=== PATIENT | male | born 1940 | race Caucasian/White ===

== ENCOUNTER 2021-09-07 01:31 | Inpatient (IN) | payer MEDICARE, MEDICAID, SELFPAY ==
[2021-09-07] VITALS (40 sets, daily range): BP systolic 74–124; BP diastolic 38–74; PULSE 71–90; RESP 17–36; TEMP 36.1–37.1; O2SAT 73–100; BMI 11.5; BMI 26.9
--- NOTE | 2021-09-07 | ECG_ITS ---
Test Reason : SOB Blood Pressure : / mmHG Vent. Rate : 086 BPM Atrial Rate : 086 BPM P-R Int : 158 ms QRS Dur : 122 ms QT Int : 438 ms P-R-T Axes : 056 -50 -54 degrees QTc Int : 524 ms Normal sinus rhythm Left anterior fascicular block Minimal voltage criteria for LVH, may be normal variant ( [place] product ) T wave abnormality, consider inferolateral ischemia Abnormal ECG When compared with ECG of 13-OCT-2009 19:34, Left anterior fascicular block is now Present T wave inversion now evident in Inferior leads T wave inversion now evident in Lateral leads QT has lengthened Referred By: Generic ED Physician Electronically Signed By:JAMES SPRINGER MD
--- NOTE | ~2021-09-07 | XR_ITS ---
EXAMINATION: XR SKULL CLINICAL INFORMATION: Pre-MRI COMPARISON: None TECHNIQUE: 3 views of the skull were obtained FINDINGS: The metal wire from the mass the patient is wearing at the time of the x-ray is seen. There are dental amalgams and nasal cannula oxygen. No metallic foreign bodies in the orbits to preclude MRI. No evidence of acute sinusitis. No gross skull fracture. XR/XR skull <4V IMPRESSION: No metallic foreign bodies in the orbits to preclude MRI.
--- NOTE | ~2021-09-07 | CT_ITS ---
EXAMINATION: CT ABDOMEN AND PELVIS WITHOUT CONTRAST CLINICAL INFORMATION: Urosepsis. COMPARISON: CT scan of the abdomen and pelvis dated 05/24/2010. TECHNIQUE: Multidetector volumetric imaging was performed from the superior aspect of the liver through the pubic symphysis. Sagittal and coronal reformatted images were obtained on the technologist's workstation. This CT examination was performed using dose optimization techniques as appropriate, variously including the following: *Automated exposure control *Adjustment of mA and/or kV according to patient size (this includes techniques or standardized protocols for targeted exams where dose is matched to indication/reason for exam; i.e. extremities or head) *Use of iterative reconstruction technique DLP: 965 mGy-cm FINDINGS: LUNG BASES: Mild dependent atelectasis. No significant pleural or pericardial effusions. Incidental bilateral mild gynecomastia. LIVER, GALLBLADDER, AND BILIARY TREE: No hepatic abnormality. Several tiny calcified dependent gallstones without surrounding abnormality. PANCREAS: Unremarkable. SPLEEN: Unremarkable. ADRENAL GLANDS: Unremarkable. KIDNEYS AND URETERS: Mild left hydronephrosis is seen distally to the left ureterovesical junction where there are multiple clustered calcified calculi measuring up to 1.0 cm (image 48, series 5). No intrarenal calculi bilaterally. No right hydronephrosis. BLADDER: Decompressed containing a Barry catheter with diffuse moderate mural thickening and mild surrounding infiltrative changes. A calculus/calcification is seen posterior superiorly measuring 0.8 cm (image 74, series 3). Air is seen adjacent to the Barry catheter at the bulbar and penile segments. GASTROINTESTINAL TRACT: Small to moderate hiatal hernia. The remainder the stomach is unremarkable. The remainder the stomach is unremarkable. Probable small lipomatous polyp in the second segment of the duodenum measuring 0.9 cm (image 42, series 5). The remainder the small bowel is unremarkable. The appendix is unremarkable. The colon shows scattered mild to moderate diverticulosis without surrounding abnormality. The rectum is unremarkable. ABDOMINAL WALL: Small fat-containing left inguinal hernia. LYMPH NODES: No lymphadenopathy. VASCULAR: Unremarkable. PELVIC VISCERA: Unremarkable. OSSEOUS STRUCTURES: Multilevel degenerative changes are seen in the thoracolumbar spine most pronounced from L3-L4 and L5-S1 with degenerative disc disease and marginal osteophyte formation. No acute abnormality. The vertebral body hemangioma seen at L3. Mild bilateral hip degenerative changes. CT/CT abdomen pelvis wo con IMPRESSION: 1. Mild left hydronephrosis caused by a cluster of calculi at the level the left ureterovesical junction. 2. Decompressed urinary bladder with moderate diffuse mural thickening and perivesicular infiltrative changes suggesting an infectious/inflammatory cystitis. An additional intraluminal calculus is seen posterior superiorly. 3. Mild air adjacent to the Barry catheter in the bulbar and penile segments. This could be secondary to instrumentation however, an infectious/inflammatory process cannot be excluded. 4. Cholelithiasis without evidence for acute cholecystitis. 5. Mild to moderate colonic diverticulosis without evidence for acute diverticulitis.
--- NOTE | ~2021-09-07 | XR_ITS ---
EXAMINATION: XR CHEST CLINICAL INFORMATION: Shortness of breath. Rule out pneumonia. COMPARISON: None TECHNIQUE: Frontal view of the chest was obtained. FINDINGS: The cardiac silhouette is normal in size. Mild blunting of the right costophrenic sulcus. No pneumothoraces. Focal round glass and airspace opacity projected over the peripheral right middle lung zone. Mild diffuse vascular indistinctness is present elsewhere in the lungs. XR/XR chest 1V IMPRESSION: *Focal ground glass and airspace opacity within the right middle lung zone suspicious for acute infection. Findings could represent atypical/viral infection. *Findings suspicious for mild pulmonary vascular congestion. *Possible trace right pleural effusion.
--- NOTE | ~2021-09-07 | MR_ITS ---
EXAMINATION: MR PELVIS WITHOUT CONTRAST CLINICAL INFORMATION: Penile cancer. COMPARISON: CT abdomen/pelvis 09/07/2021. TECHNIQUE: Multiple routine MRI sequences through the pelvis were obtained without intravenous contrast. FINDINGS: Evaluation is limited limited in the absence of intravenous contrast. Accounting for these limitations, there is visualization of a heterogeneous predominantly T2 hyperintense mass along the dorsal shaft of the penis measuring approximately 3 x 1.9 x 5.5 cm (axial image 35 of series 4 and sagittal image 13 of series 7). This lesion involves the bilateral corpus cavernosum starting at approximately 7 cm from the pubic symphysis, and extending along the dorsal shaft of the penis up to the glans. There is also encasement of the penile urethra. A Barry catheter is noted. There are pathologically enlarged predominantly left-sided iliac and inguinal lymph nodes. For example (series 4): A 3.1 x 1.9 cm left external iliac lymph node adjacent to the psoas muscle, image 4. A 1.6 x 1 cm left external iliac lymph node, image 9. A 1.3 x 2 cm left external iliac lymph node, image 11. A 1.5 x 3.6 cm left inguinal lymph node, image 21. The prostate gland is enlarged. This examination is suboptimal to evaluate for prostatic lesions. There is a small 0.7 cm homogeneously T2 hyperintense probably cyst in the right epididymis/testis (4:40). There is diffuse urinary bladder wall thickening with trabeculations. Layering urinary bladder stones are again noted. There is small volume of free fluid with also fat stranding in the pelvis and presacral space. There is extensive subcutaneous edema along the penis and inguinal regions. There is a small left-sided fat-containing inguinal hernia. There is nonspecific heterogeneity of the bone marrow. MR/MR pelvis wo con IMPRESSION: Penile mass suboptimally assessed in the absence of intravenous contrast centered predominantly along the dorsal shaft extending to the glands and encasing the urethra. Evaluation of superimposed vascular penile thrombosis is essentially nondiagnostic in the absence of intravenous contrast. Inguinal and pelvic lymphadenopathy. Nonspecific heterogeneity of the bone marrow. Enlarged prostate. This examination was not targeted to assess for prostatic neoplasm for which correlation with PSA, biopsy or prostatic MRI is recommended if clinically indicated. Significant soft tissue stranding and edema around the penis and inguinal regions with a small volume of free fluid and also fat stranding in the pelvis and presacral space. Abnormal wall thickening of the urinary bladder with trabeculations, possibly related with chronic outlet obstruction. Correlate with urinalysis and if indicated cystoscopy. This result was discussed with Eliazar MELARA at 09/13/2021 3:41 PM and it was ascertained that the content of the report was understood at the time of direct communication.
--- NOTE | ~2021-09-07 | US_ITS ---
EXAMINATION: ULTRASOUND-GUIDED FINE-NEEDLE ASPIRATION CLINICAL INFORMATION: Penile mass. Enlarged inguinal lymph nodes. COMPARISON: Previous CT and MR of the pelvis from 08/2021. TECHNIQUE: Procedure and risks and benefits including bleeding and infection were discussed with the patient and informed consent was obtained. The left groin was prepped and draped in the usual sterile fashion. The skin and soft tissues were anesthetized with 1% lidocaine plain. Using ultrasound guidance and a 22-gauge needle, access to the largest left inguinal lymph node measuring 2.3 x 1 x 1.5 cm was obtained. 4 22-gauge FNA specimens. Specimens were sent for cytology, flow cytometry and microbiology studies. FINDINGS: The largest left inguinal lymph node measuring 2.3 x 1 x 1.5 cm with cortical thickening and slit-like hilum was targeted for fine-needle aspiration. US/US guided fine needle asp IMPRESSION: Ultrasound-guided left inguinal lymph node fine-needle aspiration.
--- NOTE | ~2021-09-07 | US_ITS ---
EXAMINATION: PENILE DOPPLER ULTRASOUND CLINICAL INFORMATION: Question of venous thrombosis. COMPARISON: MR pelvis 09/11/2021, CT abdomen and pelvis 09/07/2021 TECHNIQUE: High-frequency linear transducer was used to examine the penis with Doppler imaging. FINDINGS: There is skin thickening and edema of the penis. No definite thrombosed veins are seen. Superficial dorsal vein and the deep dorsal vein in the penis both appear to be patent. Within the corpora spongiosum, a Barry catheter can be seen in the urethra. There is a hypoechoic peripheral crescentic area measuring 1.0 x 1.5 x 0.5 cm in the left corpora cavernosa peripherally from about 6 o'clock to the 3:30 position. This area shows no evidence of vascular flow. Other visualized veins appear quite prominent and hypervascular with no evidence of thrombosed venous structures. US/US duplex AV flow penis comp IMPRESSION: There is a crescentic hypoechoic area within the left corpora cavernosa which could represent an area which appears clotted / thrombosed. No other areas of definite venous thrombosis seen involving any other venous structures.
--- NOTE | ~2021-09-07 | XR_ITS ---
EXAMINATION: XR CHEST CLINICAL INFORMATION: Right IJ COMPARISON: This radiograph 09/07/2021 TECHNIQUE: Frontal view of the chest was obtained. FINDINGS: A right internal jugular catheter terminates in projection with the right atrium approximately 2 cm inferior to the cavoatrial junction. The heart size is normal. No pneumothoraces identified. Focal airspace type opacity is present in the right middle lung zone. Mild diffuse vascular indistinctness is visualized. Mild blunting of the right costophrenic sulcus. XR/XR chest 1V IMPRESSION: *Right internal jugular catheter terminating in projection with the right atrium 2 cm inferior to the cavoatrial junction. *Focal right middle lung zone airspace opacity which may represent infection. *Findings suspicious for pulmonary vascular congestion. *Trace right pleural effusion. This result regarding right IJ catheter positioning and findings suspicious for right middle lung zone airspace disease was discussed with Flynn GONZALEZ by telephone at 09/07/2021 5:43 AM and it was ascertained that the content and urgency of the report was understood at the time of direct communication.
[2021-09-07] MEDS: 0.9 % Sodium Chloride 1,000 ML 999 ML IV ×3 (02:00→02:47)
[2021-09-07 02:02] LABS: Hemoglobin 12.1 g/dl (14.0-18.0); Mean Corpuscular HGB Conc 32.7 g/dl (31.0-36.0); Mean Corpuscular Hemoglobin 29.1 pg (27.0-33.0); Mean Corpuscular Volume 88.9 fL (80.0-98.0); Mean Platelet Volume 10.6 fL (9.4-12.4); Red Blood Count 4.16 X10*6/uL (4.60-5.80); Red Cell Distribution Width 16.4 % (11.0-16.0)
[2021-09-07 02:15] LABS: Platelet Count 89 X10*3/uL (160-400); WBC ABN SCTR FOR CBC 1
[2021-09-07 02:17] LABS: Creatinine Clr Calc Pharmacy 6.9; Estimated Glomerular Filt Rate 14
[2021-09-07 02:18] LABS: Anion Gap 23 (12-20); Blood Urea Nitrogen 62 mg/dL (9-16); COVID-19 Test Negative (Negative); Calcium 9.5 mg/dL (8.4-10.2); Carbon Dioxide 17 mmol/L (22-29); Chloride 101 mmol/L (96-108); Glucose Fasting 68 mg/dL (60-99); IDNOW Serial# 16C4AD1C; Influenza A Negative (Negative); Influenza B2 Negative (Negative); Lactic Acid 7.7 mmol/L (0.5-2.0); Potassium 4.7 mmol/L (3.3-5.1); Sodium 136 mmol/L (135-145)
[2021-09-07 02:35] LABS: Band Neutrophils Percent 38 % (3-5); Lymphocytes Percent Manual 4 % (20-40); Metamyelocytes Percent 3 %; Monocytes Percent Manual 5 % (2-11); Neutrophils Percent Manual 50 % (45-73)
[2021-09-07 02:36] LABS: Burr Cells 1+ (0-2) /OIF; Dohle Bodies PRESENT; Large Platelet PRESENT; Macrocytosis 1+ (5-14) /OIF; Metamyelocytes Absolute 0.7 X10*3/uL; Monocytes Absolute Manual 1.2 X10*3/uL (0.1-1.2); Neutrophils Absolute Manual 21.7 X10*3/uL (2.0-8.3); Platelet Estimate DECREASED (NORMAL); Platelet Morphology Comment NORMAL; RBC Morphology NOTED; Toxic Vacuolation PRESENT; White Blood Count 24.7 X10*3/uL (4.8-10.8)
[2021-09-07] MEDS: Piperacillin Sodium/Tazobactam 4.5 GM in 0.9 % Sodium Chloride 100 ML IV (02:37)
--- NOTE | 2021-09-07 02:40 | PC.NURSE ---
Addendum entered by Lynsey Florian [facility] 09/07/21 07:03: Report given to JOYCE Rosales Addendum entered by Lynseymichael Florian [facility] 09/07/21 07:00: Report given to JOYCE Rosales Addendum entered by Lynsey Chiqui [facility] 09/07/21 06:33: biateral upper soft restrained placed at 0205am due to confusion, trying to pulled line and his hernandez. pt re-orientation provided, pt keeps trying to pulled his hernandez and IV Addendum entered by Lynsey Chiqui [facility] 09/07/21 05:35: LISA Pruett confirm central line placement. able to use line [facility] 09/07/21 05:28: pt tolerated central line placement. Xray by bedside Addendum entered by Lynsey Chiqui [facility] 09/07/21 05:02: verbal order from LISA Gates to titrate pressor to 0.25 Addendum entered by Lynsey Chiqui [facility] 09/07/21 04:57: LISA Gates by bedside, preparing pt for a central line. Addendum entered by Lynseymichael Florian [facility] 09/07/21 02:59: pt started on CBI per provider order Original Note: pt arrived confuse, hematuria notice on his underpants. hypotensive, two IV inserted. pt started on continuos cardiac monitoring. labs obtained and set. Hernandez inserted, darn red foul urine notice, provider made aware.
[2021-09-07 02:41] LABS: Troponin-I High Sensitivity 2236.7 ng/L (<3.5-35.0)
[2021-09-07 02:41] LABS: Appearance Urine TURBID; Color Urine BROWN; Glucose Urine UA 100 MG/DL (NEG); Leukocyte Esterase Urine 3+ (NEG); Nitrite Urine POS (NEG); Specific Gravity - Urine 1.015 (1.005-1.025); UACC Culture Trigger YES; Urine Blood 3+ (NEG); Urine Ketones 15 MG/DL (NEG); Urine Protein 3+ MG/DL (NEG-TRACE)
[2021-09-07 02:59] LABS: Amorphous Sediment Urine 3+ /LPF; Bacteria Urine 4+ /LPF; RBC Urine TNTC /HPF (0); Squamous Epithelial Cell Urine TRACE /LPF; Triple Phosphate Crystal Urine 2+ /LPF; WBC Urine 50-75 /HPF (0-4)
[2021-09-07 03:03] LABS: Alanine Aminotransferase 17 U/L (0-40); Albumin Level 3.1 g/dL (3.5-5.0); Alkaline Phosphatase 169 U/L (39-117); Aspartate Amino Transferase 74 U/L (5-37); Bilirubin Direct 1.1 mg/dL (0.0-0.5); Bilirubin Total 2.3 mg/dL (0.0-1.0); Total Protein 6.5 g/dL (6.5-8.0)
--- NOTE | 2021-09-07 03:15 | ED.GENADULT ---
HPI - General Adult General Chief complaint: Dyspnea Stated complaint: LOW O2 DEMENTIA Time Seen by Provider: 09/07/21 01:54 Source: EMS Mode of arrival: ambulatory Limitations: altered mental status History of Present Illness HPI narrative: 81-year-old male who presents emergency department for evaluation confusion and shortness of breath with hypoxia. The patient was unable to give a history information came from the paramedics. Apparently the called an ambulance was the patient was confused was trying to walk outside and for got where he was going. The patient's confusion got worse. When the paramedics arrived at the scene they state that his O2 saturation was 73% on room air. They placed him on non-rebreather with improvement of his O2 saturation. There was no other information available on presentation and there was no contact information available to obtain a history from the . Related Data Allergies Allergy/AdvReac Type Severity Reaction Status Date / Time No Known Allergies Allergy Unverified 12/03/19 16:48 Review of Systems Review of Systems: Yes Unobtainable due to mental status [facility] Past Medical History [facility] Narrative: Past medical history: Unknown. Past surgical history: Unknown. Social history: Unknown. Social History Social History Advance Directives: No Advance Directives Information Provided: Yes Physical Exam ED Vital Signs: Vital Signs - 24 hr 09/07/21 01:41 09/07/21 02:36 09/07/21 02:47 Temperature 97.8 F Pulse Rate 89 83 82 Respiratory Rate 28 H 24 H 32 H Blood Pressure 74/44 L 78/38 L 81/42 L Pulse Oximetry 98 100 100 Oxygen Delivery Method Nasal Cannula Nasal Cannula Nasal Cannula Oxygen Flow Rate 4 3 09/07/21 02:57 09/07/21 03:08 09/07/21 03:36 Temperature Pulse Rate 84 80 80 Respiratory Rate 31 H 26 H 17 Blood Pressure 89/40 L 90/48 L 99/44 L Pulse Oximetry 99 99 100 Oxygen Delivery Method Nasal Cannula Nasal Cannula Nasal Cannula Oxygen Flow Rate 3 3 3 09/07/21 04:09 09/07/21 04:31 Temperature Pulse Rate 82 83 Respiratory Rate 22 H 25 H Blood Pressure 94/39 L 78/43 L Pulse Oximetry 97 97 Oxygen Delivery Method Nasal Cannula Nasal Cannula Oxygen Flow Rate 3 3 BMI result Body Mass Index 11.5 Const Other: Elderly male patient, he is confused, he was able to tell me his name only, he was not able answer questions, he was trying to get off the stretcher HENIL Head: Yes normal to inspection, Yes normocephalic and Yes atraumatic Ears: external ears normal General nose exam: Normal external nose present Face and sinus: Yes normal facial exam Mouth: Normal oral and palatal mucosa present Throat: Yes posterior oropharynx normal Eyes General: appearance normal, both eyes and all related structures Neck Neck: Yes normal visual inspection, Yes no lymphadenopathy, Yes trachea midline and Yes supple Chest Chest palpation & inspection: normal inspection of the chest and normal palpation of entire chest wall Resp Effort & Inspection: normal respiratory effort and able to speak in complete sentences Auscultation: clear to auscultation bilaterally Cardio Rate: regular rate Rhythm: regular rhythm Heart sounds: S1 normal heart sound present, S2 normal heart sound present and no murmurs GI Inspection: Yes normal to inspection Palpation (GI): Soft to palpation, nontender and no guarding Auscultation: normal bowel sounds General: Yes no CVA tenderness Back/Spine/Pelvis Back: no CVA tenderness Skin General skin exam: no rashes or lesions noted Neuro Other: patient is oriented to person only, he moves all extremities symmetrically Extrem General: Yes normal to inspection Course Course Course Narrative: 81-year-old male patient who was brought to emergency department by ambulance for evaluation of confusion. Patient was found to be hypoxic by the paramedics and placed on non-rebreather here in the emergency department we were able place the patient on 4 L of oxygen via nasal cannula and his O2 saturation was in 98% range. Initial vital signs revealed a low blood pressure 74/44 and an elevated respiratory rate of 28. Patient's O2 saturation was 98% on 4 L and his temperature was 97.8 degrees. Except for his confusion the patient's examination was otherwise unremarkable. I did order laboratory evaluation to include CBC, CMP, lactate, troponin, urinalysis, Barry insertion, EKG, chest x-ray. Patient was ordered to get Zosyn 4.5 g IV and normal saline IV x3 L. 0524: Laboratory evaluation [place] [address], [place] [address], there are no old values to compare these 2. Patient's BUN creatinine were elevated 62 and 4.16. Patient's AST was elevated 74. Alk-phos was elevated 169. Bilirubin is elevated 2.3. The initial troponin was elevated 2236, 2 hour troponin was improved at 1663. initial lactate was 7.7. Repeat lactate improved to 3.8. Radiology evaluation: Radiology reading is as follows: *Focal ground glass and airspace opacity within the right middle lung zone suspicious for acute infection. Findings could represent atypical/viral infection. *Findings suspicious for mild pulmonary vascular congestion. *Possible trace right pleural effusion. I did discuss the patient's presentation with the covering mechanical maintenance supervisor, Dr. Ureña and he accepted the patient to the intensive care unit. the patient's blood pressure initially improved with the above treatment. Patient however became hypotensive again and was started on Levophed. ? Medical Decision Making Lab Data Result diagrams: 09/07/21 01:48 09/07/21 01:48 Labs: Lab Results 09/07/21 09/07/21 09/07/21 Range/Units 01:48 01:48 01:48 WBC 24.7 H (4.8-10.8) X10*3/uL RBC 4.16 L (4.60-5.80) X10*6/uL Hgb 12.1 L (14.0-18.0) g/dl Hct 37.0 L (42.0-52.0) % MCV 88.9 (80.0-98.0) fL MCH 29.1 (27.0-33.0) pg MCHC 32.7 (31.0-36.0) g/dl RDW 16.4 H (11.0-16.0) % Plt Count 89 L (160-400) X10*3/uL MPV 10.6 (9.4-12.4) fL Immature Gran % (Auto) Cancelled Neut % (Auto) Cancelled Lymph % (Auto) Cancelled [place] % (Auto) Cancelled Eos % (Auto) Cancelled Baso % (Auto) Cancelled Lymph # (Auto) Cancelled [place] # (Auto) Cancelled Eos # (Auto) Cancelled Baso # (Auto) Cancelled Abs Immat Gran (auto) Cancelled Absolute Neuts (auto) Cancelled Absolute Nucleated RBC 0.000 (0.0-0.012) X10*3/uL Nucleated RBC % (auto) 0.0 (0.0-0.2) /100WBC Neutrophils % (Manual) 50 (45-73) % Band Neutrophils % 38 H (3-5) % Lymphocytes % (Manual) 4 L (20-40) % Monocytes % (Manual) 5 (2-11) % Metamyelocytes % 3 % Abs Neuts (Manual) 21.7 H (2.0-8.3) X10*3/uL Lymphocytes # (Manual) 1.0 L (1.2-4.9) X10*3/uL Monocytes # (Manual) 1.2 (0.1-1.2) X10*3/uL Metamyelocytes # 0.7 X10*3/uL Toxic Vacuolation PRESENT Dohle Bodies PRESENT Platelet Estimate DECREASED (NORMAL) Large Platelets PRESENT Plt Morphology Comment NORMAL RBC Morphology NOTED Macrocytosis 1+ (5-14) /OIF [place] Cells 1+ (0-2) /OIF VBG pH (7.32-7.43) VBG pCO2 mmHg VBG pO2 mmHg VBG HCO3 (22-26) mmol/L VBG O2 Saturation % VBG Base Excess mmol/L Sodium 136 (135-145) mmol/L Potassium 4.7 (3.3-5.1) mmol/L Chloride 101 (96-108) mmol/L Carbon Dioxide 17 L (22-29) mmol/L Anion Gap 23 H (12-20) BUN 62 H (9-16) mg/dL Creatinine 4.16 H* (0.5-1.4) mg/dL Estim Creat Clear Calc 6.9 Estimated GFR 14 Fasting Glucose 68 (60-99) mg/dL Lactic Acid 7.7 H* (0.5-2.0) mmol/L Lactic Acid F/U @ 2Hr (0.5-2.0) mmol/L Calcium 9.5 (8.4-10.2) mg/dL Phosphorus 2.2 L (2.7-4.5) mg/dL Magnesium 1.8 (1.6-2.6) mg/dL Total Bilirubin 2.3 H (0.0-1.0) mg/dL Direct Bilirubin 1.1 H (0.0-0.5) mg/dL AST 74 H (5-37) U/L ALT 17 (0-40) U/L Alkaline Phosphatase 169 H (39-117) U/L Troponin I High Sens (<3.5-35.0) ng/L B-Natriuretic Peptide (<100) pg/mL Total Protein 6.5 (6.5-8.0) g/dL Albumin 3.1 L (3.5-5.0) g/dL Urine Color Urine Appearance Urine pH (5.0-8.0) Ur Specific [place] (1.005-1.025) Urine Protein (NEG-TRACE) MG/DL Urine Glucose (UA) (NEG) MG/DL Urine Ketones (NEG) MG/DL Urine Blood (NEG) Urine Nitrite (NEG) Ur Leukocyte Esterase (NEG) Urine RBC (0) /HPF Urine WBC (0-4) /HPF Ur Squamous Epith Cells /LPF Triple Phos Crystals /LPF Amorphous Sediment /LPF Urine Bacteria /LPF Urine Yeast /HPF COVID-19 (CRISTIAN) (Negative) COVID-19 Clin Com Influenza Type A (JUNG) (Negative) Influenza Type B (JUNG) (Negative) Influenza A & B Note 09/07/21 09/07/21 09/07/21 Range/Units 01:48 01:48 02:09 WBC (4.8-10.8) X10*3/uL RBC (4.60-5.80) X10*6/uL Hgb (14.0-18.0) g/dl Hct (42.0-52.0) % MCV (80.0-98.0) fL MCH (27.0-33.0) pg MCHC (31.0-36.0) g/dl RDW (11.0-16.0) % Plt Count (160-400) X10*3/uL MPV (9.4-12.4) fL Immature Gran % (Auto) Neut % (Auto) Lymph % (Auto) [place] % (Auto) Eos % (Auto) Baso % (Auto) Lymph # (Auto) [place] # (Auto) Eos # (Auto) Baso # (Auto) Abs Immat Gran (auto) Absolute Neuts (auto) Absolute Nucleated RBC (0.0-0.012) X10*3/uL Nucleated RBC % (auto) (0.0-0.2) /100WBC Neutrophils % (Manual) (45-73) % Band Neutrophils % (3-5) % Lymphocytes % (Manual) (20-40) % Monocytes % (Manual) (2-11) % Metamyelocytes % % Abs Neuts (Manual) (2.0-8.3) X10*3/uL Lymphocytes # (Manual) (1.2-4.9) X10*3/uL Monocytes # (Manual) (0.1-1.2) X10*3/uL Metamyelocytes # X10*3/uL Toxic Vacuolation Dohle Bodies Platelet Estimate (NORMAL) Large Platelets Plt Morphology Comment RBC Morphology Macrocytosis /OIF [place] Cells /OIF VBG pH (7.32-7.43) VBG pCO2 mmHg VBG pO2 mmHg VBG HCO3 (22-26) mmol/L VBG O2 Saturation % VBG Base Excess mmol/L Sodium (135-145) mmol/L Potassium (3.3-5.1) mmol/L Chloride (96-108) mmol/L Carbon Dioxide (22-29) mmol/L Anion Gap (12-20) BUN (9-16) mg/dL Creatinine (0.5-1.4) mg/dL Estim Creat Clear Calc Estimated GFR Fasting Glucose (60-99) mg/dL Lactic Acid (0.5-2.0) mmol/L Lactic Acid F/U @ 2Hr (0.5-2.0) mmol/L Calcium (8.4-10.2) mg/dL Phosphorus (2.7-4.5) mg/dL Magnesium (1.6-2.6) mg/dL Total Bilirubin (0.0-1.0) mg/dL Direct Bilirubin (0.0-0.5) mg/dL AST (5-37) U/L ALT (0-40) U/L Alkaline Phosphatase (39-117) U/L Troponin I High Sens 2236.7 H* (<3.5-35.0) ng/L B-Natriuretic Peptide 777 H (<100) pg/mL Total Protein (6.5-8.0) g/dL Albumin (3.5-5.0) g/dL Urine Color Urine Appearance Urine pH (5.0-8.0) Ur Specific [place] (1.005-1.025) Urine Protein (NEG-TRACE) MG/DL Urine Glucose (UA) (NEG) MG/DL Urine Ketones (NEG) MG/DL Urine Blood (NEG) Urine Nitrite (NEG) Ur Leukocyte Esterase (NEG) Urine RBC (0) /HPF Urine WBC (0-4) /HPF Ur Squamous Epith Cells /LPF Triple Phos Crystals /LPF Amorphous Sediment /LPF Urine Bacteria /LPF Urine Yeast /HPF COVID-19 (CRISTIAN) Negative (Negative) COVID-19 Clin Com See Note Influenza Type A (JUNG) Negative (Negative) Influenza Type B (JUNG) Negative (Negative) Influenza A & B Note See Note 09/07/21 09/07/21 09/07/21 Range/Units 02:34 04:27 04:27 WBC (4.8-10.8) X10*3/uL RBC (4.60-5.80) X10*6/uL Hgb (14.0-18.0) g/dl Hct (42.0-52.0) % MCV (80.0-98.0) fL MCH (27.0-33.0) pg MCHC (31.0-36.0) g/dl RDW (11.0-16.0) % Plt Count (160-400) X10*3/uL MPV (9.4-12.4) fL Immature Gran % (Auto) Neut % (Auto) Lymph % (Auto) [place] % (Auto) Eos % (Auto) Baso % (Auto) Lymph # (Auto) [place] # (Auto) Eos # (Auto) Baso # (Auto) Abs Immat Gran (auto) Absolute Neuts (auto) Absolute Nucleated RBC (0.0-0.012) X10*3/uL Nucleated RBC % (auto) (0.0-0.2) /100WBC Neutrophils % (Manual) (45-73) % Band Neutrophils % (3-5) % Lymphocytes % (Manual) (20-40) % Monocytes % (Manual) (2-11) % Metamyelocytes % % Abs Neuts (Manual) (2.0-8.3) X10*3/uL Lymphocytes # (Manual) (1.2-4.9) X10*3/uL Monocytes # (Manual) (0.1-1.2) X10*3/uL Metamyelocytes # X10*3/uL Toxic Vacuolation Dohle Bodies Platelet Estimate (NORMAL) Large Platelets Plt Morphology Comment RBC Morphology Macrocytosis /OIF [place] Cells /OIF VBG pH (7.32-7.43) VBG pCO2 mmHg VBG pO2 mmHg VBG HCO3 (22-26) mmol/L VBG O2 Saturation % VBG Base Excess mmol/L Sodium (135-145) mmol/L Potassium (3.3-5.1) mmol/L Chloride (96-108) mmol/L Carbon Dioxide (22-29) mmol/L Anion Gap (12-20) BUN (9-16) mg/dL Creatinine (0.5-1.4) mg/dL Estim Creat Clear Calc Estimated GFR Fasting Glucose (60-99) mg/dL Lactic Acid (0.5-2.0) mmol/L Lactic Acid F/U @ 2Hr 3.8 H* (0.5-2.0) mmol/L Calcium (8.4-10.2) mg/dL Phosphorus (2.7-4.5) mg/dL Magnesium (1.6-2.6) mg/dL Total Bilirubin (0.0-1.0) mg/dL Direct Bilirubin (0.0-0.5) mg/dL AST (5-37) U/L ALT (0-40) U/L Alkaline Phosphatase (39-117) U/L Troponin I High Sens 1663.0 H* (<3.5-35.0) ng/L B-Natriuretic Peptide (<100) pg/mL Total Protein (6.5-8.0) g/dL Albumin (3.5-5.0) g/dL Urine Color BROWN A Urine Appearance TURBID Urine pH 8.0 (5.0-8.0) Ur Specific [place] 1.015 (1.005-1.025) Urine Protein 3+ H (NEG-TRACE) MG/DL Urine Glucose (UA) 100 H (NEG) MG/DL Urine Ketones 15 (NEG) MG/DL Urine Blood 3+ H (NEG) Urine Nitrite POS H (NEG) Ur Leukocyte Esterase 3+ H (NEG) Urine RBC TNTC H (0) /HPF Urine WBC 50-75 H (0-4) /HPF Ur Squamous Epith Cells TRACE /LPF Triple Phos Crystals 2+ /LPF Amorphous Sediment 3+ /LPF Urine Bacteria 4+ /LPF Urine Yeast TRACE /HPF COVID-19 (CRISTIAN) (Negative) COVID-19 Clin Com Influenza Type A (JUNG) (Negative) Influenza Type B (JUNG) (Negative) Influenza A & B Note 09/07/21 Range/Units 04:32 WBC (4.8-10.8) X10*3/uL RBC (4.60-5.80) X10*6/uL Hgb (14.0-18.0) g/dl Hct (42.0-52.0) % MCV (80.0-98.0) fL MCH (27.0-33.0) pg MCHC (31.0-36.0) g/dl RDW (11.0-16.0) % Plt Count (160-400) X10*3/uL MPV (9.4-12.4) fL Immature Gran % (Auto) Neut % (Auto) Lymph % (Auto) [place] % (Auto) Eos % (Auto) Baso % (Auto) Lymph # (Auto) [place] # (Auto) Eos # (Auto) Baso # (Auto) Abs Immat Gran (auto) Absolute Neuts (auto) Absolute Nucleated RBC (0.0-0.012) X10*3/uL Nucleated RBC % (auto) (0.0-0.2) /100WBC Neutrophils % (Manual) (45-73) % Band Neutrophils % (3-5) % Lymphocytes % (Manual) (20-40) % Monocytes % (Manual) (2-11) % Metamyelocytes % % Abs Neuts (Manual) (2.0-8.3) X10*3/uL Lymphocytes # (Manual) (1.2-4.9) X10*3/uL Monocytes # (Manual) (0.1-1.2) X10*3/uL Metamyelocytes # X10*3/uL Toxic Vacuolation Dohle Bodies Platelet Estimate (NORMAL) Large Platelets Plt Morphology Comment RBC Morphology Macrocytosis /OIF [place] Cells /OIF VBG pH 7.34 (7.32-7.43) VBG pCO2 29 mmHg VBG pO2 58 mmHg VBG HCO3 16 L (22-26) mmol/L VBG O2 Saturation 83.0 % VBG Base Excess -8.3 mmol/L Sodium (135-145) mmol/L Potassium (3.3-5.1) mmol/L Chloride (96-108) mmol/L Carbon Dioxide (22-29) mmol/L Anion Gap (12-20) BUN (9-16) mg/dL Creatinine (0.5-1.4) mg/dL Estim Creat Clear Calc Estimated GFR Fasting Glucose (60-99) mg/dL Lactic Acid (0.5-2.0) mmol/L Lactic Acid F/U @ 2Hr (0.5-2.0) mmol/L Calcium (8.4-10.2) mg/dL Phosphorus (2.7-4.5) mg/dL Magnesium (1.6-2.6) mg/dL Total Bilirubin (0.0-1.0) mg/dL Direct Bilirubin (0.0-0.5) mg/dL AST (5-37) U/L ALT (0-40) U/L Alkaline Phosphatase (39-117) U/L Troponin I High Sens (<3.5-35.0) ng/L B-Natriuretic Peptide (<100) pg/mL Total Protein (6.5-8.0) g/dL Albumin (3.5-5.0) g/dL Urine Color Urine Appearance Urine pH (5.0-8.0) Ur Specific [place] (1.005-1.025) Urine Protein (NEG-TRACE) MG/DL Urine Glucose (UA) (NEG) MG/DL Urine Ketones (NEG) MG/DL Urine Blood (NEG) Urine Nitrite (NEG) Ur Leukocyte Esterase (NEG) Urine RBC (0) /HPF Urine WBC (0-4) /HPF Ur Squamous Epith Cells /LPF Triple Phos Crystals /LPF Amorphous Sediment /LPF Urine Bacteria /LPF Urine Yeast /HPF COVID-19 (CRISTIAN) (Negative) COVID-19 Clin Com Influenza Type A (JUNG) (Negative) Influenza Type B (JUNG) (Negative) Influenza A & B Note ECG Data Attestation: I personally reviewed and interpreted this ECG as follows: Interpretation: 0139: Normal sinus rhythm rate of 86, normal WI interval 158 milliseconds, prolonged QRS of 122 milliseconds, prolonged QTC 524 milliseconds, patient had inverted T-waves in leads 2, 3 and AVF, patient has poor R-wave progression V1 through V3, no old EKG for comparison. Critical Care Time Critical Care Time Total Critical Care Time: 80 Attestation: Critical Care: The patient was critically ill with a high probability of imminent or life threatening deterioration. I spent greater than 30 minutes of discontinuous time evaluating the patient,delivering critical care at the bedside, discussing and evaluating pertinent data with consultants. Critical care time does not include time spent performing separately billable procedures or teaching. Total time spent performing critical care was 80 minutes. Discharge Plan Discharge Clinical Impression: Acute UTI, Acute hypotension Pneumonia Qualifiers: Pneumonia type: due to unspecified organism Laterality: right Lung location: middle lobe of lung Qualified Code(s): J18.9 - Pneumonia, unspecified organism Patient Disposition: Admitted As Inpatient
--- NOTE | 2021-09-07 03:28 | P.HPCC_ITS ---
History of Present Illness Date of Service: 09/07/21 Attending physician on admission: Cy Ureña Chief Complaint: Sepsis, UTI, ALETHEA HPI: ?81-year-old male with underlying history of recurrent UTIs, pyelonephritis, hyperlipidemia, SD , DVT and PE in year 1999, with another PE in 2005, pneumonia, mild restrictive pulmonary disease based on PFTs study from back then, hypertension; constipation, diverticulosis he had been on long-term anticoagulation therapy at the time; Per ER report the patient had arrived confused, hematuria was noted under his underpants; the patient's blood pressure was 74/44, heart rate 89, respirations 28, O2 90% on 4 L nasal cannula and temperature 97.8 degrees.? ? His initial workup revealed a white count of 24.7, H&H of 12 and 37 respectively with platelets of 89, sodium 136, potassium 4.7, chloride 101, carbon dioxide 17, BUN 62 crit, creatinine 4.16, baseline is unknown). ?Lactic acid 7.7. ?A urinalysis is consistent with UTI showing positive nitrates, 3+ leukocyte esterase, 50-75 white blood cells per high-power feel along with glucosuria and proteinuria, trace yeast. ?Respiratory panel negative including COVID test. ?His EKG shows T-wave inversions throughout the lateral inferior leads which are new from prior EKG in 2009 along with an elevated troponin of 2236.? The patient did receive 30 milligrams/kilograms of IV fluid, was started on Zosyn. ?Even though the patient received the above-mentioned IV fluids, his blood pressure does not improve in and we requested to admit the patient for further management and perhaps vasopressor administration. ? Currently patient is not able to give a history. ? ROS:? Unable to obtain ? Past Medical History:? As above ? Past Surgical History: Unknown ? Family history:?Unknown ? Social History:? Per prior records the patient has not been a smoker drinker. Livies home with his ? CODE STATUS: FULL CODE ? Allergies: NKDA ? Home Medications: See Med Rec ? SEPSIS EXAM DONE AT 0400 AM VS: ?BP 90/48, HR 80, RR 26, O2 sat 99% 3 L nasal cannula General: ?Thin and cachectic looking, Alert oriented x3 no acute distress.? Speaking full sentences.? Speech is well articulated, thought process is coherent.? Following all commands. Skin:? Intact, no lesions, edema, erythema, clubbing or cyanosis.? No ulcers. HEENT:? Head is normocephalic, atraumatic, pupils equal round reactive to light accommodation bilaterally.? Extraocular movements appear intact.? Buccal mucosa is moist, Neck is supple without lymphadenopathy. Cardiac:? Clear S1-S2, no murmurs rubs or gallops. Pulmonary:? Clear to auscultation, no wheezes, rales or rhonchi. Abdomen:? Protuberant, positive bowel sounds in all 4 quadrants.? Soft, nontender, no rebound or guarding.? Musculoskeletal:? Moving all 4 extremities upon request a major joints, there is no crepitus or tenderness.? The strength is 5/5 bilaterally and throughout all 4 extremities.? There is no leg edema , no calf tenderness , no leg asymmetry.? Gait not assessed at this point. Neurologic:? As above, cranial nerves 2-12 are grossly intact.? No focal deficits noted. Motor strength as above.? Vascular:? 2+ pulses upper and lower extremities distally. ?Less than 2nd capillary refill of the finger and toes bilaterally. ? SIGNIFICANT LABORATORY DATA:? As above ? REVIEW OF IMAGES: Chest x-ray impression To my view, trach is midline, there is no bony abnormalities, cardiac silhouette appears normal, will visualize costophrenic angles without evidence of pleural effusions, there may be an infiltrate on the RML and possible pulmonary vascular congestion noted.? Final reading pending by radiologist. ? EKG REVIEW: ?To my impression, this is a Sinus rhythm study, ventricular rate 86 beats per minute.? There is no ST elevations, there is criteria for LVH, T-wave inversions throughout the lateral leads and inferior leads all new from prior E KG.? QTC 438 ? ASSESSMENT AND PLAN: 1. Acute septic shock 2. UTI CAP R middle lung 3. Acute kidney injury 4. Hypoalbuminemia 5. Normocytic anemia NOS a rule out chronic disease, iron deficiency, occult bleed 6. Thrombocytopenia likely due to sepsis 7. Metabolic and lactic acidosis due to 1. 8. Transaminitis likely acute l shocked liver, rule out liver versus gallbladder, pancreas pathology 9. Elevated troponin and EKG changes rule out NSTEMI, PE vs reactive changes 10. Hematuria likely due to UTI and thrombocytopenia r/o bladder mass, stones ? Patient will be admitted to ICU, on monitor I's and O?s, Barry and CBI, given the above-mentioned UTI a CT of the abdomen and pelvis will be requested to ensure there is no obstructive uropathy specially given the hematuria, will administer albumin and if needed start him on vasopressors, obtain a called home blood the study, repeat lactic acid, repeat troponin now an EKG.? I will place a central line.? Start Rocephin given that his prior urinary tract infections have been related to E coli, he also may have an infiltrate in the right middle lobe therefore will treat him with this and Zithromax.? Given the presence of trace yeast in his urine I will give him a single dose of Diflucan. ? If his troponin continues to rise, it is ?unlikely that the patient will be a candidate for heparin drip given the ongoing hematuria and thrombocytopenia, he will not be able to get on aspirin, perhaps will given a statin.? Will also not be able to give him a beta-joey due to low blood pressure. ?The chances of him having a recurrent pulmonary embolism is present however given the renal dysfunction will not be able to perform a CT angiogram of the chest, might be able to do a ventilation perfusion scan in the morning. Consult Urology in the morning. ? GI PROPHYLAXIS:? IV ppi DVT PROPHYLAXIS:? Pneumatic stockings only due to hematuria and thrombocytopenia ? Critical care time used for critical evaluation of this patient, diagnosis, treatment and coordination of care, review her records and documentation TOTAL CRITICAL CARE TIME 90 MIN . Patient's care was discussed in detail with Dr. Ureña.? He is aware of all the above as well as the plan of care for this patient. [facility] Social History Social History Household Members: Significant Other Housing: House Do you presently have visiting nurse or other home services: No Patient Tobacco Use Status: Never used Tobacco e-Cigarette/Vaping Use: Never Used Second Hand Smoke Exposure: No Use of substances other than those prescribed or required for medical reasons: No Currently Displaying Signs/Symptoms of Drug Intoxication Withdrawal: No Have you been hit, kicked, punched, or otherwise hurt by someone within the past year? If so, by whom?: No Do you feel safe in your current relationship?: No Is there a partner from a previous relationship who is making you feel unsafe now?: No Are you made to feel afraid or neglected: No Advance Directives: No Advance Directives Information Provided: Yes Do you have thoughts of harming others: None Do you have a plan to hurt others: No Plan Recently lost weight without trying: No Nutrition Risks: No Nutritional Risk Poor oral hygiene: No service: No Current occupational status: retired Meds Allergies Allergy/AdvReac Type Severity Reaction Status Date / Time No Known Allergies Allergy Unverified 12/03/19 16:48 Active Medications: Current Medications Heparin Sodium (Porcine) (Heparin Sodium,Porcine 5,000 Unit/Ml Vial) 5,000 unit SUBCUT BID MIKKI Ceftriaxone Sodium 1 gm/ (Sodium Chloride) 50 mls @ 100 mls/hr IV Q24H MIKKI Albumin Human (Kedbumin 25 %) 100 mls @ 100 mls/hr IV Q1H MIKKI Stop: 09/07/21 05:29 Pantoprazole Sodium (Pantoprazole Sodium 40 Mg/10 Ml Vial) 40 mg IVPUSH DAILY [facility] Home Medications Medication Instructions Recorded Confirmed Last Taken Type lisinopril 30 mg tablet 1 tab PO DAILY 09/07/21 09/07/21 Unknown History metoprolol succinate 100 mg 1 tab PO DAILY 09/07/21 09/07/21 Unknown History tablet,extended release 24 hr rosuvastatin 10 mg tablet 1 tab PO BEDTIME 09/07/21 09/07/21 Unknown History Physical Exam Vital Signs: Vital Signs: Last Vital Signs Temp 97.8 F 09/07/21 01:41 Pulse 80 09/07/21 03:08 Resp 26 H 09/07/21 03:08 BP 90/48 L 09/07/21 03:08 Pulse Ox 99 09/07/21 03:08 O2 Del Method 09/07/21 03:08 O2 Flow Rate 3 09/07/21 03:08 Oxygen Flow Rate 5 09/07/21 01:41 BMI result Body Mass Index 11.5 Results Labs CBC and Chem 7: 09/07/21 05:45 09/07/21 17:17 Labs: Laboratory Results - last 24 hr 09/07/21 09/07/21 09/07/21 01:48 01:48 01:48 MCV 88.9 MCH 29.1 MCHC 32.7 RDW 16.4 H Plt Count 89 L MPV 10.6 Immature Gran % (Auto) Cancelled Neut % (Auto) Cancelled Lymph % (Auto) Cancelled [place] % (Auto) Cancelled Eos % (Auto) Cancelled Baso % (Auto) Cancelled Lymph # (Auto) Cancelled [place] # (Auto) Cancelled Eos # (Auto) Cancelled Baso # (Auto) Cancelled Abs Immat Gran (auto) Cancelled Absolute Neuts (auto) Cancelled Absolute Nucleated RBC 0.000 Nucleated RBC % (auto) 0.0 Neutrophils % (Manual) 50 Band Neutrophils % 38 H Lymphocytes % (Manual) 4 L Monocytes % (Manual) 5 Metamyelocytes % 3 Abs Neuts (Manual) 21.7 H Lymphocytes # (Manual) 1.0 L Monocytes # (Manual) 1.2 Metamyelocytes # 0.7 Toxic Vacuolation PRESENT Dohle Bodies PRESENT Platelet Estimate DECREASED Large Platelets PRESENT Plt Morphology Comment NORMAL RBC Morphology NOTED Macrocytosis 1+ (5-14) [place] Cells 1+ (0-2) Anion Gap 23 H Estim Creat Clear Calc 6.9 Estimated GFR 14 Fasting Glucose 68 Lactic Acid 7.7 H* Calcium 9.5 Total Bilirubin 2.3 H Direct Bilirubin 1.1 H AST 74 H ALT 17 Alkaline Phosphatase 169 H Troponin I High Sens Total Protein 6.5 Albumin 3.1 L Urine Color Urine Appearance Urine pH Ur Specific [place] Urine Protein Urine Glucose (UA) Urine Ketones Urine Blood Urine Nitrite Ur Leukocyte Esterase Urine RBC Urine WBC Ur Squamous Epith Cells Triple Phos Crystals Amorphous Sediment Urine Bacteria Urine Yeast COVID-19 (CRISTIAN) COVID-19 Clin Com Influenza Type A (JUNG) Influenza Type B (JUNG) Influenza A & B Note 09/07/21 09/07/21 09/07/21 01:48 01:48 02:09 MCV MCH MCHC RDW Plt Count MPV Immature Gran % (Auto) Neut % (Auto) Lymph % (Auto) [place] % (Auto) Eos % (Auto) Baso % (Auto) Lymph # (Auto) [place] # (Auto) Eos # (Auto) Baso # (Auto) Abs Immat Gran (auto) Absolute Neuts (auto) Absolute Nucleated RBC Nucleated RBC % (auto) Neutrophils % (Manual) Band Neutrophils % Lymphocytes % (Manual) Monocytes % (Manual) Metamyelocytes % Abs Neuts (Manual) Lymphocytes # (Manual) Monocytes # (Manual) Metamyelocytes # Toxic Vacuolation Dohle Bodies Platelet Estimate Large Platelets Plt Morphology Comment RBC Morphology Macrocytosis [place]va Cells Anion Gap Estim Creat Clear Calc Estimated GFR Fasting Glucose Lactic Acid Calcium Total Bilirubin Direct Bilirubin AST ALT Alkaline Phosphatase Troponin I High Sens 2236.7 H* Total Protein Albumin Urine Color Urine Appearance Urine pH Ur Specific [place] Urine Protein Urine Glucose (UA) Urine Ketones Urine Blood Urine Nitrite Ur Leukocyte Esterase Urine RBC Urine WBC Ur Squamous Epith Cells Triple Phos Crystals Amorphous Sediment Urine Bacteria Urine Yeast COVID-19 (CRISTIAN) Negative COVID-19 Clin Com See Note Influenza Type A (JUNG) Negative Influenza Type B (JUNG) Negative Influenza A & B Note See Note 09/07/21 02:34 MCV MCH MCHC RDW Plt Count MPV Immature Gran % (Auto) Neut % (Auto) Lymph % (Auto) [place] % (Auto) Eos % (Auto) Baso % (Auto) Lymph # (Auto) [place] # (Auto) Eos # (Auto) Baso # (Auto) Abs Immat Gran (auto) Absolute Neuts (auto) Absolute Nucleated RBC Nucleated RBC % (auto) Neutrophils % (Manual) Band Neutrophils % Lymphocytes % (Manual) Monocytes % (Manual) Metamyelocytes % Abs Neuts (Manual) Lymphocytes # (Manual) Monocytes # (Manual) Metamyelocytes # Toxic Vacuolation Dohle Bodies Platelet Estimate Large Platelets Plt Morphology Comment RBC Morphology Macrocytosis Rosalva Cells Anion Gap Estim Creat Clear Calc Estimated GFR Fasting Glucose Lactic Acid Calcium Total Bilirubin Direct Bilirubin AST ALT Alkaline Phosphatase Troponin I High Sens Total Protein Albumin Urine Color BROWN A Urine Appearance TURBID Urine pH 8.0 Ur Specific [place] 1.015 Urine Protein 3+ H Urine Glucose (UA) 100 H Urine Ketones 15 Urine Blood 3+ H Urine Nitrite POS H Ur Leukocyte Esterase 3+ H Urine RBC TNTC H Urine WBC 50-75 H Ur Squamous Epith Cells TRACE Triple Phos Crystals 2+ Amorphous Sediment 3+ Urine Bacteria 4+ Urine Yeast TRACE COVID-19 (CRISTIAN) COVID-19 Clin Com Influenza Type A (JUNG) Influenza Type B (JUNG) Influenza A & B Note
[2021-09-07 03:49] LABS: B Type Natriuretic Peptide 777 pg/mL (<100)
[2021-09-07 03:53] LABS: Reflex Lactate? Lactic Acid Added
[2021-09-07] MEDS: Albumin Human 25 % 100 ML IV ×2 (04:11→05:19)
[2021-09-07 04:19] LABS: Magnesium 1.8 mg/dL (1.6-2.6); Phosphorus 2.2 mg/dL (2.7-4.5)
[2021-09-07 04:38] LABS: VBG Base Excess -8.3 mmol/L; VBG HCO3 16 mmol/L (22-26); VBG pCO2 29 mmHg; VBG pH 7.34 (7.32-7.43); VBG pO2 58 mmHg
[2021-09-07 04:43] LABS: Venous Blood Gas Refer to POC result
[2021-09-07 04:48] LABS: ~Lactic Acid-LAB USE ONLY 3.8 mmol/L (0.5-2.0)
[2021-09-07] MEDS: cefTRIAXone sodium 1 GM in 0.9 % Sodium Chloride 50 ML IV ×2 (05:26→20:03)
--- NOTE | 2021-09-07 05:29 | W.PM.CCHP ---
Procedures Date of Service Date of Service: 09/07/21 Central Line Placement Right IJ: Central Line Comments: A quick time-out was made for clarification and proper patient identification, patient was positioned, landmarks were identified, US used to locate a? large compressible IJ.? The right neck was widely prepped and draped in a full sterile fashion.? Ultrasound was used to locate again the right IJ, the vein was cannulated on the 1st pass with an 18 gauge thin needle, dark nonpulsatile blood return was obtained.? The wire was threaded, a small incision was made at its base and dilator inserted.? A triple-lumen central venous catheter was advanced into the vein up to the hub without problems, wired was removed. Ports had? good blood return and flushed x3.? The catheter was secured with 3 sutures at 3 sites, a Biopatch and dry sterile dressing were applied. Post procedure chest x-ray showed the line to be in good position without pneumothorax.? No bleeding or complications noted. Consent for Procedure: Emergent-no informed consent obtained Time out performed: Yes Sterile Technique Used: Yes Patient placed on monitor/pulse ox: Yes MD prep: mask, gown and gloves Central line prep: Chlorhexidine scrub Local anesthesia used: lidocaine 1% Amount of anesthesia used (ml): 5 Ultrasound used for placement: Yes Central line lumen inserted: triple Post procedure: sutured in place, good blood return, all ports aspirated, flushed, capped and sterile dressing applied Post procedure x-ray: tip of catheter in good position and no pneumothorax seen Patient tolerated procedure: well and no complications Complications: none
[2021-09-07 05:50] LABS: Hematocrit 31.4 % (42.0-52.0); Hemoglobin 10.3 g/dl (14.0-18.0); Mean Corpuscular HGB Conc 32.8 g/dl (31.0-36.0); Mean Corpuscular Hemoglobin 29.3 pg (27.0-33.0); Mean Corpuscular Volume 89.5 fL (80.0-98.0); Platelet Count 64 X10*3/uL (160-400); Red Blood Count 3.51 X10*6/uL (4.60-5.80); Red Cell Distribution Width 16.6 % (11.0-16.0); WBC ABN SCTR FOR CBC 1
[2021-09-07] MEDS: Azithromycin 500 MG in 0.9 % Sodium Chloride 250 ML 125 MG IV (05:56)
[2021-09-07 06:14] LABS: Troponin-I High Sensitivity 1502.4 ng/L (<3.5-35.0)
[2021-09-07 06:15] LABS: Band Neutrophils Percent 35 % (3-5); Lymphocytes Percent Manual 3 % (20-40); Metamyelocytes Percent 4 %; Monocytes Percent Manual 4 % (2-11); Neutrophils Percent Manual 54 % (45-73)
[2021-09-07 06:16] LABS: Burr Cells 1+ (0-2) /OIF; Dohle Bodies PRESENT; Large Platelet PRESENT; Macrocytosis 1+ (5-14) /OIF; Platelet Estimate DECREASED (NORMAL); Platelet Morphology Comment NORMAL; RBC Morphology NOTED; Toxic Vacuolation PRESENT
[2021-09-07 06:25] LABS: Alanine Aminotransferase 20 U/L (0-40); Albumin Level 3.2 g/dL (3.5-5.0); Alkaline Phosphatase 97 U/L (39-117); Anion Gap 21 (12-20); Aspartate Amino Transferase 96 U/L (5-37); Bilirubin Total 2.4 mg/dL (0.0-1.0); Blood Urea Nitrogen 62 mg/dL (9-16); Calcium 8.9 mg/dL (8.4-10.2); Carbon Dioxide 14 mmol/L (22-29); Chloride 109 mmol/L (96-108); Creatinine Clr Calc Pharmacy 7.5; Estimated Glomerular Filt Rate 15; Glucose Random 74 mg/dL (60-115); Phosphorus 3.4 mg/dL (2.7-4.5); Potassium 4.6 mmol/L (3.3-5.1); Sodium 139 mmol/L (135-145)
[2021-09-07 06:31] LABS: Reflex Lactate? 2 Y
[2021-09-07] MEDS: Haloperidol Lactate 5 MG/ML VIAL 1 MG IV (06:48)
[2021-09-07 06:59] LABS: Lymphocytes Absolute Manual 0.7 X10*3/uL (1.2-4.9); Metamyelocytes Absolute 0.9 X10*3/uL; Monocytes Absolute Manual 0.9 X10*3/uL (0.1-1.2); Neutrophils Absolute Manual 20.7 X10*3/uL (2.0-8.3); White Blood Count 23.3 X10*3/uL (4.8-10.8)
--- NOTE | 2021-09-07 07:22 | PC.NURSE ---
took over on the pt's care from previous shift checked the norephinephrine drip was started at incorrect weight, pt's weight is 82.6kg per bed scale, the drip was running at 35.9kg, called the pharmacy with the correct pt's weight and restarted the drip per protocol, pt does have a three way foely in place and cbi is currently infusing of blood tinged urine, pt's penis appears swollen and firm at this time pt's triple loomen central line at the coratid is coming off, line re-dressed
[2021-09-07 07:59] LABS: ~Lactic Acid-LAB USE ONLY 2.9 mmol/L (0.5-2.0)
[2021-09-07 08:02] LABS: INTERNATIONAL NORM RATIO 1.6 (0.9-1.1); Prothrombin Time 18.6 SEC (9.9-13.0)
[2021-09-07 08:05] LABS: Partial Thromboplastin Time 35.2 SEC (24.1-38.0)
[2021-09-07] MEDS: Fluconazole in NaCl,Iso-Osm 100 MG in Container,Empty 0 ML 50 MG IV (08:07)
[2021-09-07] MEDS: Pantoprazole Sodium 40 MG/10 ML VIAL IVPUSH (08:33)
--- NOTE | 2021-09-07 09:11 | PC.NURSE ---
transported the pt to icu
--- NOTE | 2021-09-07 10:45 | PHA.MEDREC ---
Pharmacy Consult ? Medication Reconciliation Pharmacy has completed the medication reconciliation. Med rec done by claim history. Unable to speak to patient, there was no phone number for patient's . Arcelia Borges, SeraD
--- NOTE | 2021-09-07 12:26 | MHC.CM.PN ---
Addendum entered by Leigh Morris 09/07/21 14:11: Received call from Myesha Gallo at [facility] re: urgent protective order filed on pt presumably by EMS upon transporting pt to [facility] for care. Per Myesha, the report states the home is not habitable and was reported to the Board of Health: findings from the report included: cluttered rooms full of trash: used/dirty incontinence products littering the floor, broken windows, collapsing floors. Report states the home had power and running water. Informed Myesha that pt was very ill and does not have the mental capacity at this time (d/t sepsis) to participate in an inquiry. Also informed Myesha that pt did not arrive dishevled or unkept, had no discernable odors, or other indicators of neglect. In addition, his long time geospatial applications developer, Shelby looked very well groomed and appropriate. ICU care team updated on [facility] case. CM to await determination on Board [facility] in order to assist with a safe d/c. CM to follow. Original Note: Pt in ICU with septic UTI features. Met with pt and long time geospatial applications developer, Shelby to discuss d/c planning needs. Per Shelby, pt is independent with care needs, uses a cane on occassion and is very sedentary, seldom leaving the home. Shelby notes increasing weakness/confusion x 2 weeks. Shelby does not drive and relies on others or public transportation. No HCP on file: will await improvement in pt's clarity to complete. PCP is Dr. Quintero: Jose Carlos vax x 3. Pt will likely need support services at home - Shelby receptive to [facility] referral - awaiting confirmation of acceptance. CM to follow and assist with HCP completion. Pt will need transportation to home
--- NOTE | 2021-09-07 16:04 | P.PNCC_ITS ---
Subjective Subjective Date of Service: 09/07/21 Interval History: Mr. Valenzuela was admitted to the ICU early this morning with urosepsis w septic shock. 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 Current meds are metoprolol, Lisinopril, rosuvastatin. The following information was obtained this morning from the patient's marketing co op of 50 years, Shelby Simmons.? Shelby is also the patient?s caregiver.? There is currently no HCP.? The patient has no children.? He has a brother who lives in [place] who he hasn?t seen in years.? The patient doesn?t like to see doctors, hasn?t seen a physician in years, but his medications are delivered by the pharmacy every month.? 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 Retired about 20 years ago.? Becoming more frail over the last few years.? Walks with a cane.? Never leaves the house except to take out the trash, which is rare.? Neither he nor Shelby drive.? She does all the shopping and housework. ?The patient wears a diaper brief.? He?s independent w his ADLs.? During the day he just sits in a chair or lies down and sleeps. HISTORY OF PRESENT ILLNESS:? Over the last week, his mental status has become increasingly altered and confused.? He was having difficulty controlling his urine.? Shelby was increasingly unable to help him and control him, therefore called the ambulance early this morning. In the ED, the patient arrived confused, his underpants were soiled with bloody urine; the patient's blood pressure was 74/44, heart rate 89, respirations 28, O2 90% on 4 L nasal cannula and temperature 97.8 degrees. ? His initial workup revealed a white count of 24.7, Hgb 12, platelets of 89K (was 170K on last labs in 2018), sodium 136, potassium 4.7, chloride 101, carbon dioxide 17, BUN/creat 62/4.1 (was 28/1.2 in 2018). ?Lactic acid 7.7.? Troponin was 2236, f/u was 1663.? Alb was 3.1. U/A showed positive nitrates, 3+ leukocyte esterase, 50-75 WBC along with glucosuria and proteinuria, trace yeast.? Respiratory panel negative including COVID test.? His EKG shows T-wave inversions throughout the lateral inferior leads which are new from prior EKG in 2010.? CXR (which I reviewed personally with Dr. Sharma) looks like interstitial edema/CHF/chronic lung dz, which looks worse on the second film after the 30cc/kg fluid bolus compared to the first film.? (The initial radiologist read the film as showing a RML infiltrate, which neither Dr. Sharma nor I see.) The patient was given 30 cc/kg IV fluid, and a dose of Zosyn.? His blood pressure did not improve.? Tx to ICU was arranged. In ICU, a central line was placed and the patient was started on Levophed.? Antibiotics were changed to ceftriaxone and Zithromax for coverage of both UTI and CAP, and the patient was given a single dose of Diflucan for the yeast in his urine.? The patient underwent an abdominal CT this morning which was notable for 1. mild left hydronephrosis caused by calculi at the left ureterovesical junction.? 2. Decompressed urinary bladder with moderate diffuse mural thi ckening and perivesicular infiltrative changes suggesting an infectious/inflammatory cystitis. An additional intraluminal calculus is seen posterior superiorly. 3. Cholelithiasis without evidence for acute cholecystitis, and 5. Mild to moderate colonic diverticulosis without evidence for acute diverticulitis. This morning, the patient is sluggish but arousable.? He can answer simple questions, knows where he is, was telling me how he was hospitalized twice her for pulmon embolism with Dr. Atkins.? He came off low dose Levophed.? HR is 81, SR.? BP 103/52, RR about 24 on 2L NC, Sat 98%.? Venous blood gas this morning showed 7.34/29/-8. ?Afebrile.? 2cm JVD at 30?.? Chest CTA with normal exp phase.? Heart rate and rhythm are regular, with no murmur or gallops.? Abdomen is benign.? He has no peripheral edema. LABORATORY DATA:? As below.? Notably, white count is down slightly to 23, hemoglobin is down to 10 after volume resuscitation, platelet count is down to 64,000.? PT 18/1.6, BUN/creatinine down sl to 62/3.8, bicarb 14, potassium 4.6, lactic acid 2.9. MICROBIOLOGY:? 2/2 blood cultures growing both Gram-negative rods and Gram- positive cocci in chains. IMPRESSION: 1. Acute septic shock.? Resolving. 2. UTI obstruction 2? stone.? Consult Dr. Meeks. 3. ID.? Continue ceftriaxone, no need at this time to broaden coverage as the patient's condition is clearly improved.? No need for Zithromax.? Urine culture still pending. 4. ALETHEA. ?2? above, plus possible hypovolemia.? Bec of his CXR and hypoxemia though, would hold on further fluids for now.? Check repeat lactate. 5. Elevated troponin and EKG changes.? R/o MS.? Troponin was decreasing, and given the imperative to avoid anticoagulants (bec of urinary bleeding), we did not put him on heparin, aspirin, or statin. ?Echo pending. 6. Elevated LFTs.? Also likely 2? sepsis.? Check hepatitis panel. 7. Hypoalbuminemia.? 2? PCM -- at least mild.? But he still has decent muscle mass. 8. Normocytic anemia.? Chronic disease, iron deficiency, vs occult bleed.? Check hemoccult. 9. Thrombocytopenia.? ? 2? sepsis.? Follow. 10. DVT prophylaxis.? Compression boots only for now, avoid anticoagulants. 11. PE.? ? if there?s a need to r/o PE.? The patient is mildly hypoxemic, but no longer hypotensive.? Alo given the elevated trop and BNP, there?s no way to conclusively r/o PE.? But he has another primary dx (sepsis), he?s clinically improving, and his trop is going down.? He?s also no candidate for a CTPA.? So for now, the dx of PE is on the backburner of the differential. ADDENDUM at 7pm: - F/U lactic acid now 1.6 - F/U chemistries this evening show BUN/creat up to 74/4.0 and BNP up to 2355.? 2cm JVD.? As noted above, his CXR showed worse interstitial edema after his 30cc/kg sepsis bolus. The patient is getting CBI now, and current plan is cystoscopy tomorrow.? I will start diuresing him now.? Echo planned for tomorrow.? Renal consult can be called tomorrow if nec. The patient is stable for transfer to [facility]. Will sign out to hospitalist. Time (includ extended d/w patient and his partner, Dr. Meeks, case mgmnt, and hospitalist): 90+ min ([phone]). Critical Care Time (minutes): 0 Physical Exam Vital Signs: Vital Signs: Last Vital Signs Temp 98.7 F 09/07/21 12:00 Pulse 79 09/07/21 15:00 Resp 31 H 09/07/21 15:00 BP 102/52 L 09/07/21 15:00 Pulse Ox 94 09/07/21 14:00 O2 Del Method 09/07/21 15:00 O2 Flow Rate 2 09/07/21 15:00 Oxygen Flow Rate 5 09/07/21 01:41 BMI result Body Mass Index 26.9 Objective Data Labs CBC & Chem 7: 09/07/21 05:45 09/07/21 17:17 Labs: Laboratory Results - last 24 hr 09/07/21 09/07/21 09/07/21 01:48 01:48 01:48 WBC 24.7 H RBC 4.16 L Hgb 12.1 L Hct 37.0 L MCV 88.9 MCH 29.1 MCHC 32.7 RDW 16.4 H Plt Count 89 L MPV 10.6 Immature Gran % (Auto) Cancelled Neut % (Auto) Cancelled Lymph % (Auto) Cancelled [place] % (Auto) Cancelled Eos % (Auto) Cancelled Baso % (Auto) Cancelled Lymph # (Auto) Cancelled [place] # (Auto) Cancelled Eos # (Auto) Cancelled Baso # (Auto) Cancelled Abs Immat Gran (auto) Cancelled Absolute Neuts (auto) Cancelled Absolute Nucleated RBC 0.000 Nucleated RBC % (auto) 0.0 Neutrophils % (Manual) 50 Band Neutrophils % 38 H Lymphocytes % (Manual) 4 L Monocytes % (Manual) 5 Metamyelocytes % 3 Abs Neuts (Manual) 21.7 H Lymphocytes # (Manual) 1.0 L Monocytes # (Manual) 1.2 Metamyelocytes # 0.7 Toxic Vacuolation PRESENT Dohle Bodies PRESENT Platelet Estimate DECREASED Large Platelets PRESENT Plt Morphology Comment NORMAL RBC Morphology NOTED Macrocytosis 1+ (5-14) Rosalva Cells 1+ (0-2) PT INR APTT VBG pH VBG pCO2 VBG pO2 VBG HCO3 VBG O2 Saturation VBG Base Excess Sodium 136 Potassium 4.7 Chloride 101 Carbon Dioxide 17 L Anion Gap 23 H BUN 62 H Creatinine 4.16 H* Estim Creat Clear Calc 6.9 Estimated GFR 14 Random Glucose Fasting Glucose 68 Lactic Acid 7.7 H* Lactic Acid F/U @ 2Hr Lactic Acid F/U @ 4Hr Calcium 9.5 Phosphorus 2.2 L Magnesium 1.8 Total Bilirubin 2.3 H Direct Bilirubin 1.1 H AST 74 H ALT 17 Alkaline Phosphatase 169 H Troponin I High Sens C-Reactive Protein B-Natriuretic Peptide Total Protein 6.5 Albumin 3.1 L Urine Color Urine Appearance Urine pH Ur Specific [place] Urine Protein Urine Glucose (UA) Urine Ketones Urine Blood Urine Nitrite Ur Leukocyte Esterase Urine RBC Urine WBC Ur Squamous Epith Cells Triple Phos Crystals Amorphous Sediment Urine Bacteria Urine Yeast COVID-19 (CRISTIAN) COVID-19 Clin Com Influenza Type A (JUNG) Influenza Type B (JUNG) Influenza A & B Note 09/07/21 09/07/21 09/07/21 01:48 01:48 02:09 WBC RBC Hgb Hct MCV MCH MCHC RDW Plt Count MPV Immature Gran % (Auto) Neut % (Auto) Lymph % (Auto) [place] % (Auto) Eos % (Auto) Baso % (Auto) Lymph # (Auto) [place] # (Auto) Eos # (Auto) Baso # (Auto) Abs Immat Gran (auto) Absolute Neuts (auto) Absolute Nucleated RBC Nucleated RBC % (auto) Neutrophils % (Manual) Band Neutrophils % Lymphocytes % (Manual) Monocytes % (Manual) Metamyelocytes % Abs Neuts (Manual) Lymphocytes # (Manual) Monocytes # (Manual) Metamyelocytes # Toxic Vacuolation Dohle Bodies Platelet Estimate Large Platelets Plt Morphology Comment RBC Morphology Macrocytosis Maynard Cells PT INR APTT VBG pH VBG pCO2 VBG pO2 VBG HCO3 VBG O2 Saturation VBG Base Excess Sodium Potassium Chloride Carbon Dioxide Anion Gap BUN Creatinine Estim Creat Clear Calc Estimated GFR Random Glucose Fasting Glucose Lactic Acid Lactic Acid F/U @ 2Hr Lactic Acid F/U @ 4Hr Calcium Phosphorus Magnesium Total Bilirubin Direct Bilirubin AST ALT Alkaline Phosphatase Troponin I High Sens 2236.7 H* C-Reactive Protein B-Natriuretic Peptide 777 H Total Protein Albumin Urine Color Urine Appearance Urine pH Ur Specific [place] Urine Protein Urine Glucose (UA) Urine Ketones Urine Blood Urine Nitrite Ur Leukocyte Esterase Urine RBC Urine WBC Ur Squamous Epith Cells Triple Phos Crystals Amorphous Sediment Urine Bacteria Urine Yeast COVID-19 (CRISTIAN) Negative COVID-19 Clin Com See Note Influenza Type A (JUNG) Negative Influenza Type B (JUNG) Negative Influenza A & B Note See Note 09/07/21 09/07/21 09/07/21 02:34 04:27 04:27 WBC RBC Hgb Hct MCV MCH MCHC RDW Plt Count MPV Immature Gran % (Auto) Neut % (Auto) Lymph % (Auto) [place] % (Auto) Eos % (Auto) Baso % (Auto) Lymph # (Auto) [place] # (Auto) Eos # (Auto) Baso # (Auto) Abs Immat Gran (auto) Absolute Neuts (auto) Absolute Nucleated RBC Nucleated RBC % (auto) Neutrophils % (Manual) Band Neutrophils % Lymphocytes % (Manual) Monocytes % (Manual) Metamyelocytes % Abs Neuts (Manual) Lymphocytes # (Manual) Monocytes # (Manual) Metamyelocytes # Toxic Vacuolation Dohle Bodies Platelet Estimate Large Platelets Plt Morphology Comment RBC Morphology Macrocytosis Maynard Cells PT INR APTT VBG pH VBG pCO2 VBG pO2 VBG HCO3 VBG O2 Saturation VBG Base Excess Sodium Potassium Chloride Carbon Dioxide Anion Gap BUN Creatinine Estim Creat Clear Calc Estimated GFR Random Glucose Fasting Glucose Lactic Acid Lactic Acid F/U @ 2Hr 3.8 H* Lactic Acid F/U @ 4Hr Calcium Phosphorus Magnesium Total Bilirubin Direct Bilirubin AST ALT Alkaline Phosphatase Troponin I High Sens 1663.0 H* C-Reactive Protein B-Natriuretic Peptide Total Protein Albumin Urine Color BROWN A Urine Appearance TURBID Urine pH 8.0 Ur Specific [place] 1.015 Urine Protein 3+ H Urine Glucose (UA) 100 H Urine Ketones 15 Urine Blood 3+ H Urine Nitrite POS H Ur Leukocyte Esterase 3+ H Urine RBC TNTC H Urine WBC 50-75 H Ur Squamous Epith Cells TRACE Triple Phos Crystals 2+ Amorphous Sediment 3+ Urine Bacteria 4+ Urine Yeast TRACE COVID-19 (CRISTIAN) COVID-19 Clin Com Influenza Type A (JUNG) Influenza Type B (JUNG) Influenza A & B Note 09/07/21 09/07/21 09/07/21 04:32 05:44 05:45 WBC 23.3 H RBC 3.51 L Hgb 10.3 L Hct 31.4 L MCV 89.5 MCH 29.3 MCHC 32.8 RDW 16.6 H Plt Count 64 L D MPV 10.0 Immature Gran % (Auto) Cancelled Neut % (Auto) Cancelled Lymph % (Auto) Cancelled [place] % (Auto) Cancelled Eos % (Auto) Cancelled Baso % (Auto) Cancelled Lymph # (Auto) Cancelled [place] # (Auto) Cancelled Eos # (Auto) Cancelled Baso # (Auto) Cancelled Abs Immat Gran (auto) Cancelled Absolute Neuts (auto) Cancelled Absolute Nucleated RBC 0.000 Nucleated RBC % (auto) 0.0 Neutrophils % (Manual) 54 Band Neutrophils % 35 H Lymphocytes % (Manual) 3 L Monocytes % (Manual) 4 Metamyelocytes % 4 Abs Neuts (Manual) 20.7 H Lymphocytes # (Manual) 0.7 L Monocytes # (Manual) 0.9 Metamyelocytes # 0.9 Toxic Vacuolation PRESENT Dohle Bodies PRESENT Platelet Estimate DECREASED Large Platelets PRESENT Plt Morphology Comment NORMAL RBC Morphology NOTED Macrocytosis 1+ (5-14) Maynard Cells 1+ (0-2) PT INR APTT VBG pH 7.34 VBG pCO2 29 VBG pO2 58 VBG HCO3 16 L VBG O2 Saturation 83.0 VBG Base Excess -8.3 Sodium Potassium Chloride Carbon Dioxide Anion Gap BUN Creatinine Estim Creat Clear Calc Estimated GFR Random Glucose Fasting Glucose Lactic Acid Lactic Acid F/U @ 2Hr Lactic Acid F/U @ 4Hr Calcium Phosphorus Magnesium Total Bilirubin Direct Bilirubin AST ALT Alkaline Phosphatase Troponin I High Sens 1502.4 H* C-Reactive Protein B-Natriuretic Peptide Total Protein Albumin Urine Color Urine Appearance Urine pH Ur Specific [place] Urine Protein Urine Glucose (UA) Urine Ketones Urine Blood Urine Nitrite Ur Leukocyte Esterase Urine RBC Urine WBC Ur Squamous Epith Cells Triple Phos Crystals Amorphous Sediment Urine Bacteria Urine Yeast COVID-19 (CRISTIAN) COVID-19 Clin Com Influenza Type A (JUNG) Influenza Type B (JUNG) Influenza A & B Note 09/07/21 09/07/21 09/07/21 05:45 07:25 07:25 WBC RBC Hgb Hct MCV MCH MCHC RDW Plt Count MPV Immature Gran % (Auto) Neut % (Auto) Lymph % (Auto) [place] % (Auto) Eos % (Auto) Baso % (Auto) Lymph # (Auto) [place] # (Auto) Eos # (Auto) Baso # (Auto) Abs Immat Gran (auto) Absolute Neuts (auto) Absolute Nucleated RBC Nucleated RBC % (auto) Neutrophils % (Manual) Band Neutrophils % Lymphocytes % (Manual) Monocytes % (Manual) Metamyelocytes % Abs Neuts (Manual) Lymphocytes # (Manual) Monocytes # (Manual) Metamyelocytes # Toxic Vacuolation Dohle Bodies Platelet Estimate Large Platelets Plt Morphology Comment RBC Morphology Macrocytosis Rosalva Cells PT Cancelled 18.6 H INR Cancelled 1.6 H APTT 35.2 VBG pH VBG pCO2 VBG pO2 VBG HCO3 VBG O2 Saturation VBG Base Excess Sodium 139 Potassium 4.6 Chloride 109 H Carbon Dioxide 14 L Anion Gap 21 H BUN 62 H Creatinine 3.84 H Estim Creat Clear Calc 7.5 Estimated GFR 15 Random Glucose 74 Fasting Glucose Lactic Acid Lactic Acid F/U @ 2Hr Lactic Acid F/U @ 4Hr Calcium 8.9 D Phosphorus 3.4 Magnesium Total Bilirubin 2.4 H Direct Bilirubin AST 96 H ALT 20 Alkaline Phosphatase 97 D Troponin I High Sens C-Reactive Protein 19.50 H B-Natriuretic Peptide Total Protein 6.0 L Albumin 3.2 L Urine Color Urine Appearance Urine pH Ur Specific [place] Urine Protein Urine Glucose (UA) Urine Ketones Urine Blood Urine Nitrite Ur Leukocyte Esterase Urine RBC Urine WBC Ur Squamous Epith Cells Triple Phos Crystals Amorphous Sediment Urine Bacteria Urine Yeast COVID-19 (CRISTIAN) COVID-19 Clin Com Influenza Type A (JUNG) Influenza Type B (JUNG) Influenza A & B Note 09/07/21 07:25 WBC RBC Hgb Hct MCV MCH MCHC RDW Plt Count MPV Immature Gran % (Auto) Neut % (Auto) Lymph % (Auto) [place] % (Auto) Eos % (Auto) Baso % (Auto) Lymph # (Auto) [place] # (Auto) Eos # (Auto) Baso # (Auto) Abs Immat Gran (auto) Absolute Neuts (auto) Absolute Nucleated RBC Nucleated RBC % (auto) Neutrophils % (Manual) Band Neutrophils % Lymphocytes % (Manual) Monocytes % (Manual) Metamyelocytes % Abs Neuts (Manual) Lymphocytes # (Manual) Monocytes # (Manual) Metamyelocytes # Toxic Vacuolation Dohle Bodies Platelet Estimate Large Platelets Plt Morphology Comment RBC Morphology Macrocytosis Maynard Cells PT INR APTT VBG pH VBG pCO2 VBG pO2 VBG HCO3 VBG O2 Saturation VBG Base Excess Sodium Potassium Chloride Carbon Dioxide Anion Gap BUN Creatinine Estim Creat Clear Calc Estimated GFR Random Glucose Fasting Glucose Lactic Acid Lactic Acid F/U @ 2Hr Lactic Acid F/U @ 4Hr 2.9 H* Calcium Phosphorus Magnesium Total Bilirubin Direct Bilirubin AST ALT Alkaline Phosphatase Troponin I High Sens C-Reactive Protein B-Natriuretic Peptide Total Protein Albumin Urine Color Urine Appearance Urine pH Ur Specific [place] Urine Protein Urine Glucose (UA) Urine Ketones Urine Blood Urine Nitrite Ur Leukocyte Esterase Urine RBC Urine WBC Ur Squamous Epith Cells Triple Phos Crystals Amorphous Sediment Urine Bacteria Urine Yeast COVID-19 (CRISTIAN) COVID-19 Clin Com Influenza Type A (JUNG) Influenza Type B (JUNG) Influenza A & B Note Microbiology Microbiology Results: Microbiology 09/07/21 02:24 Blood - Venous Blood Culture - Preliminary Prelim: GNR Gram Stain only Prelim: GPC Gram Stain only 09/07/21 02:14 Blood - Venous Blood Culture - Preliminary Prelim: GNR Gram Stain only Prelim: GPC Gram Stain only Quality Stroke Does the patient have a stroke diagnosis?: No VTE Prior VTE?: Yes VTE Risk Level:: Medical - moderate - high VTE Device Contraindication: N/A - Device Ordered VTE Drug Contraindication: N/A - Med Ordered
[2021-09-07 17:37] LABS: Lactic Acid 1.6 mmol/L (0.5-2.0)
[2021-09-07 17:46] LABS: B Type Natriuretic Peptide 2355 pg/mL (<100)
[2021-09-07 17:48] LABS: Anion Gap 19 (12-20); Blood Urea Nitrogen 74 mg/dL (9-16); Calcium 8.7 mg/dL (8.4-10.2); Carbon Dioxide 16 mmol/L (22-29); Chloride 108 mmol/L (96-108); Creatinine Clr Calc Pharmacy 14.3; Estimated Glomerular Filt Rate 14; Glucose Random 86 mg/dL (60-115); Sodium 138 mmol/L (135-145)
[2021-09-07] MEDS: Furosemide 100 MG/10 ML VIAL 60 MG IVPUSH (20:03)
[2021-09-07 21:28] LABS: OBS Int Ctl Valid YES; OBS1 POSITIVE (NEGATIVE)
[2021-09-08] VITALS (10 sets, daily range): BP systolic 92–144; BP diastolic 47–71; PULSE 81–95; RESP 13–95; TEMP 36.6–37.5; O2SAT 94–99
--- NOTE | 2021-09-08 | ECG_ITS ---
Test Reason : abn ekg Blood Pressure : / mmHG Vent. Rate : 089 BPM Atrial Rate : 089 BPM P-R Int : 152 ms QRS Dur : 114 ms QT Int : 384 ms P-R-T Axes : 042 -53 079 degrees QTc Int : 467 ms Normal sinus rhythm Left anterior fascicular block Minimal voltage criteria for LVH, may be normal variant ( Ar product ) Abnormal ECG When compared with ECG of 07-SEP-2021 01:39, T wave inversion no longer evident in Inferior leads T wave inversion no longer evident in Lateral leads Referred By: Sameer Kenyon Electronically Signed By:JAMES SPRINGER MD
[2021-09-08 05:58] LABS: Hematocrit 32.2 % (42.0-52.0); Hemoglobin 10.4 g/dl (14.0-18.0); Mean Corpuscular HGB Conc 32.3 g/dl (31.0-36.0); Mean Corpuscular Hemoglobin 28.8 pg (27.0-33.0); Mean Corpuscular Volume 89.2 fL (80.0-98.0); Red Blood Count 3.61 X10*6/uL (4.60-5.80); Red Cell Distribution Width 16.9 % (11.0-16.0)
[2021-09-08 06:00] LABS: Platelet Count 45 X10*3/uL (160-400); WBC ABN SCTR FOR CBC 1
[2021-09-08 06:20] LABS: Alanine Aminotransferase 30 U/L (0-40); Alkaline Phosphatase 83 U/L (39-117); Anion Gap 20 (12-20); Aspartate Amino Transferase 101 U/L (5-37); Bilirubin Total 2.3 mg/dL (0.0-1.0); Blood Urea Nitrogen 85 mg/dL (9-16); Calcium 8.8 mg/dL (8.4-10.2); Carbon Dioxide 15 mmol/L (22-29); Chloride 109 mmol/L (96-108); Creatinine Clr Calc Pharmacy 14.4; Estimated Glomerular Filt Rate 14; Glucose Random 89 mg/dL (60-115); Magnesium 2.1 mg/dL (1.6-2.6); Phosphorus 3.4 mg/dL (2.7-4.5); Potassium 4.7 mmol/L (3.3-5.1); Sodium 139 mmol/L (135-145); Total Protein 5.9 g/dL (6.5-8.0)
[2021-09-08 06:23] LABS: Band Neutrophils Percent 23 % (3-5); Burr Cells 1+ (0-2) /OIF; Dohle Bodies PRESENT; Lymphocytes Percent Manual 2 % (20-40); Macrocytosis 1+ (5-14) /OIF; Metamyelocytes Percent 1 %; Monocytes Percent Manual 2 % (2-11); Neutrophils Percent Manual 72 % (45-73); Platelet Estimate DECREASED (NORMAL); Platelet Morphology Comment NORMAL; Polychromasia 1+ (0-2) /OIF; RBC Morphology NOTED; Toxic Vacuolation PRESENT
[2021-09-08 06:24] LABS: Lymphocytes Absolute Manual 0.3 X10*3/uL (1.2-4.9); Metamyelocytes Absolute 0.2 X10*3/uL; Monocytes Absolute Manual 0.3 X10*3/uL (0.1-1.2); Neutrophils Absolute Manual 14.7 X10*3/uL (2.0-8.3); White Blood Count 15.5 X10*3/uL (4.8-10.8)
[2021-09-08] MEDS: cefTRIAXone sodium 2 GM in 0.9 % Sodium Chloride 50 ML IV (06:55)
--- NOTE | 2021-09-08 07:00 | CA_ITS ---
Transthoracic Echocardiogram Patient (Last, First, Middle): Festus Valenzuela J Gender: Male Date of : 1940 Age: 81 Procedure Date: 09/08/2021 Procedure Type: Transthoracic Echocardiogram Location: ICU Height: 175.26 cm Weight: 82.56 kg BSA: 1.98 m2 Heart Rate: 80 bpm BP: 105 / 55 mmHg Employee Relations Assistant: MICHEL Referring MD: Cy Ureña MD Drug Abuse Social Worker: Froylan Wilson MD Symptoms: r/o [place] Study Quality: Adequate ECG Rhythm: Sinus Conclusions: - 1. Normal LV systolic function with impaired relaxation filling pattern with reduced global longitudinal strain, marker for systolic function 2. Trivial aortic regurgitation 3. No gross pericardial effusion Findings Left Ventricle Normal left ventricular size, thickness, and systolic function. The visually estimated ejection fraction is between 55-60%. Spectral Doppler is indicative of an impaired relaxation filling pattern. E/E prime ratio is between 8 and 15 consistent with indeterminate filling pressures. Peak GLS is -14%, which is reduced. Right Ventricle Normal right ventricular cavity size and systolic function. Atria The left atrium is likely dilated. Interatrial shunt cannot be excluded. The right atrium is normal in size. Aortic Valve There is mild calcification of the aortic valve. There is mild thickening of the aortic valve. There is no aortic valve stenosis. There is trace (trivial) aortic valve regurgitation. Mitral Valve There is mild anterior and posterior mitral leaflet thickening. There is trace mitral valve regurgitation. There is no mitral valve stenosis. Pulmonic Valve The pulmonic valve is likely normal. There is trace pulmonic valve regurgitation. Tricuspid Valve Normal tricuspid valve structure. There is trace tricuspid valve regurgitation. Tricuspid regurgitation envelope is inadequate for calculation of right ventricular systolic pressure. Normal right atrial pressure. Great Vessels All visible segments of the aorta are normal in size. The pulmonary artery was not well visualized. Venous The inferior vena cava is normal in size and collapses greater than 50% with inspiration. Pericardium/Pleural There is no evidence of pericardial effusion. Prior Study Comparison No prior study available for comparison. Measurements 2D Linear Measurements IVSd: 1.05 0.6-0.9/0.6-1.0 cm LVIDd: 4.56 3.9-5.3/4.2-5.9 cm LVIDd Index: 2.30 2.4-3.2/2.2-3.1 cm/m2 LVIDs: 3.04 2.0-3.6 cm LVPWd: 1.00 0.7-1.1 cm LA Diam: 3.90 2.7-3.8/3.0-4.0 cm LAIDs Index: 1.97 1.5-2.3 cm/m2 LV Mass: 194.18 67-162/88-224 g LV Mass Index: 98.07 43-95/49-115 g/m2 LVOT Diam: 2.40 3.0+(-)1.3 cm 2D Systolic Function EF 4C: 57.90 >55% EF 2C: 56.10 >55% EF BiP: 56.90 >55% Mitral Valve MV Pk E: 0.77 MV PK A: 1.10 MV Decel Time: 180.00 E/A: 0.70 E'Lateral: 5.33 E'Medial: 6.09 E/E' Med: 12.60 E/E' Lat: 14.40 PHT: 53.00 MVA PHT: 4.15 Decel Mccormick: 4.24 Aortic Valve AoV Pk Live: 1.44 AoV Mn Live: 1.06 AoV VTI: 0.27 AoV Pk Grad: 8.00 Aov Mn Grad: 5.00 TRINITY Cont.VTI: 3.72 AI Pk Live: 2.79 AI Mccormick: 2.53 LVOT LVOT Pk Live: 1.17 LVOT Mn Live: 0.86 LVOT VTI: 0.22 LVOT Pk Grad: 5.00 LVOT Mn Grad: 3.00 LVOT Diam: 2.40 LVOT Area: 4.52 Diastolic Function MV Pk E: 0.77 MV Pk A: 1.10 E/A: 0.70 E'Medial: 6.09 E/E' Med: 12.60 E' Laterial: 5.33 E/E' Lat: 14.40 Right Ventricle TAPSE (mm): 20.40 TVS' Live: 15.10 Tricuspid Valve RA Press: 3.00 Great Vessels Aorta Sinus of Valsalva: 3.00 2.0-3.5 cm Ao Asc: 3.60 2.1-3.4 cm Pulmonary Valve PV Pk Ilve: 1.11 Peak PV Grad: 5.00 Updated in Other Vendor System with Status of Final Froylan Wilson MD electronically signed on 09/08/2021 11:44:12 AM with status of Final
[2021-09-08 07:53] LABS: HBS Num1 0.96 mIU/mL (0-7.99); HBc Num1 0.13 S/CO (0.00-0.79); HBsAGNum1 0.23 S/CO (0.00-0.99); Hepatitis A Antibody IgM 0.13 Index (0-0.79); Hepatitis B Core Antibody Nonreactive (Nonreactive); Hepatitis B Surface Antigen Negative (Negative); ~Hepatitis A Antibody IgM Nonreactive (Nonreactive); ~Hepatitis B Surface Antibody NONREACTIVE (Nonreactive); ~Hepatitis C Antibody Nonreactive (Nonreactive)
[2021-09-08] MEDS: Pantoprazole Sodium 40 MG/10 ML VIAL IVPUSH (08:57)
--- NOTE | 2021-09-08 11:29 | PC.NURSE ---
Patient remained overnight in ICU with CBI infusing. He was weaned off pressors within an hour of his arrival to ICU. O2 was turned off as well. Per night report patient was agitated, attempting to get OOB and pulling at lines. Order was given and restraints applied. They remain in place this morning. Presently patient is resting in bed comfortably. He is not fighting restraints or resisting care. His significant other is at the bedside assisting him with breakfast. Patient remains off pressors and off O2. CBI return clear yellow urine. Good urine output noted. Skin remains intact and patient remains free from injury. Report given to [facility] nurse and patient is to be transferred there shortly.
--- NOTE | 2021-09-08 11:53 | MHC.CM.PN ---
HCP completed using 2 witnesses naming [facility] as primary agent. Broad SNF referrals made as pt remains weak, deconditioned and will not have care resources available at home to assist him. [facility] remains involved regarding an elder at risk report presumably filed by EMS d/t the homes condition. CM to follow
--- NOTE | 2021-09-08 12:48 | HO.PM.IMPN ---
Subjective Subjective Date of Service: 10/10/21 Interval History: patient awake alert pleasantly confused, able to recognize his girlfriend at bedside, complaining of abdominal pain denies nausea vomiting, no diarrhea denies shortness of breath no chest pain, no palpitation. Review of Systems Review of Systems: Yes Unobtainable due to mental status Physical Exam Vital Signs: Vital Signs: Last Vital Signs Temp 98.3 F 09/08/21 08:00 Pulse 84 09/08/21 10:00 Resp 31 H 09/08/21 10:00 BP 116/62 09/08/21 10:00 Pulse Ox 94 09/08/21 10:00 O2 Del Method 09/08/21 10:00 O2 Flow Rate 2 09/07/21 15:00 Oxygen Flow Rate 5 09/07/21 01:41 BMI result Body Mass Index 26.9 Const: Other: General awake alert, in no acute distress. Neck no JVD. CVS regular rate rhythm, Respiratory lungs clear to auscultation, no respiratory distress, no use of accessory muscles Gastrointestinal abdomen soft, nontender, bowel sounds audible, no guarding , no rigidity. Extremities no edema. Neuro nonfocal ,moving all 4 extremity, speech clear, not aware of time or place. Skin no rash psych poor insight, no behavioral issues Objective Data Active Medications Acetaminophen (Acetaminophen 325 Mg Tablet) 650 mg PO Q6H PRN PRN Reason: Pain, Mild (Pain Scale 1-3) Ceftriaxone Sodium 2 gm/ (Sodium Chloride) 50 mls @ 100 mls/hr IV Q24H [facility] Last Infusion: 09/08/21 12:12 Dose: 0 mls/hr Documented By: COTEMA Omeprazole (Omeprazole 20 Mg Capsule.Dr) 20 mg PO DAILY@0630 [facility] Ondansetron HCl (Ondansetron Hcl 4 Mg/2 Ml Vial) 4 mg IVPUSH Q8H PRN PRN Reason: Nausea Labs CBC & Chem 7: 09/17/21 05:18 09/19/21 05:58 Labs: Laboratory Results - last 24 hr 09/07/21 09/07/21 09/07/21 17:17 17:17 17:17 MCV MCH MCHC RDW Plt Count MPV Immature Gran % (Auto) Neut % (Auto) Lymph % (Auto) Nye % (Auto) Eos % (Auto) Baso % (Auto) Lymph # (Auto) Nye # (Auto) Eos # (Auto) Baso # (Auto) Abs Immat Gran (auto) Absolute Neuts (auto) Absolute Nucleated RBC Nucleated RBC % (auto) Neutrophils % (Manual) Band Neutrophils % Lymphocytes % (Manual) Monocytes % (Manual) Metamyelocytes % Abs Neuts (Manual) Lymphocytes # (Manual) Monocytes # (Manual) Metamyelocytes # Toxic Vacuolation Dohle Bodies Platelet Estimate Plt Morphology Comment RBC Morphology Polychromasia Macrocytosis [place] Cells Anion Gap 19 Estim Creat Clear Calc 14.3 Estimated GFR 14 Random Glucose 86 Lactic Acid 1.6 Calcium 8.7 Phosphorus Magnesium Total Bilirubin AST ALT Alkaline Phosphatase B-Natriuretic Peptide 2355 H Total Protein Albumin Stool Occult Blood Hepatitis A IgM Ab Hep Bs Antigen Hep Bs Antibody Hep B Core Total Ab Hepatitis C Ab (EIA) 09/07/21 09/07/21 09/08/21 17:17 21:05 05:40 MCV 89.2 MCH 28.8 MCHC 32.3 RDW 16.9 H Plt Count 45 L D MPV 12.0 Immature Gran % (Auto) Cancelled Neut % (Auto) Cancelled Lymph % (Auto) Cancelled Nye % (Auto) Cancelled Eos % (Auto) Cancelled Baso % (Auto) Cancelled Lymph # (Auto) Cancelled Nye # (Auto) Cancelled Eos # (Auto) Cancelled Baso # (Auto) Cancelled Abs Immat Gran (auto) Cancelled Absolute Neuts (auto) Cancelled Absolute Nucleated RBC 0.000 Nucleated RBC % (auto) 0.0 Neutrophils % (Manual) 72 Band Neutrophils % 23 H Lymphocytes % (Manual) 2 L Monocytes % (Manual) 2 Metamyelocytes % 1 Abs Neuts (Manual) 14.7 H Lymphocytes # (Manual) 0.3 L Monocytes # (Manual) 0.3 Metamyelocytes # 0.2 Toxic Vacuolation PRESENT Dohle Bodies PRESENT Platelet Estimate DECREASED Plt Morphology Comment NORMAL RBC Morphology NOTED Polychromasia 1+ (0-2) Macrocytosis 1+ (5-14) [place] Cells 1+ (0-2) Anion Gap Estim Creat Clear Calc Estimated GFR Random Glucose Lactic Acid Calcium Phosphorus Magnesium Total Bilirubin AST ALT Alkaline Phosphatase B-Natriuretic Peptide Total Protein Albumin Stool Occult Blood POSITIVE Hepatitis A IgM Ab Nonreactive Hep Bs Antigen Negative Hep Bs Antibody NONREACTIVE Hep B Core Total Ab Nonreactive Hepatitis C Ab (EIA) Nonreactive 09/08/21 05:40 MCV MCH MCHC RDW Plt Count MPV Immature Gran % (Auto) Neut % (Auto) Lymph % (Auto) Nye % (Auto) Eos % (Auto) Baso % (Auto) Lymph # (Auto) Nye # (Auto) Eos # (Auto) Baso # (Auto) Abs Immat Gran (auto) Absolute Neuts (auto) Absolute Nucleated RBC Nucleated RBC % (auto) Neutrophils % (Manual) Band Neutrophils % Lymphocytes % (Manual) Monocytes % (Manual) Metamyelocytes % Abs Neuts (Manual) Lymphocytes # (Manual) Monocytes # (Manual) Metamyelocytes # Toxic Vacuolation Dohle Bodies Platelet Estimate Plt Morphology Comment RBC Morphology Polychromasia Macrocytosis [place] Cells Anion Gap 20 Estim Creat Clear Calc 14.4 Estimated GFR 14 Random Glucose 89 Lactic Acid Calcium 8.8 Phosphorus 3.4 Magnesium 2.1 Total Bilirubin 2.3 H AST 101 H ALT 30 Alkaline Phosphatase 83 B-Natriuretic Peptide Total Protein 5.9 L Albumin 3.0 L Stool Occult Blood Hepatitis A IgM Ab Hep Bs Antigen Hep Bs Antibody Hep B Core Total Ab Hepatitis C Ab (EIA) Microbiology Microbiology Results: Microbiology 09/07/21 02:14 Blood Culture - Preliminary Blood - Venous Gram negative larissa Group G streptococcus 09/07/21 02:24 Blood Culture - Preliminary Blood - Venous Gram negative larissa Group G streptococcus 09/07/21 Unknown Urine Culture - Final Urine Catheterized - Barry Catheter Assessment and Plan (1) Acute UTI: Status: Resolved (2) Pneumonia: Status: Resolved (3) Acute hypotension: Status: Resolved (4) Acute renal failure: Status: Resolved (5) Acute respiratory failure with hypoxia: Status: Resolved (6) Acute encephalopathy: Status: Resolved (7) Acute diastolic CHF (congestive heart failure): Status: Resolved (8) Lactic acidosis: Status: Resolved Plan 81-year-old gentleman with past medical history of hypertension hyperlipidemia has not seen a primary care physician in last several years but has been receiving his medications through pharmacy on metoprolol, Crestor and lisinopril was brought into [facility] by paramedics due to confusion and difficulty in urination acute septic shock due to UTI/ pneumonia chest x-ray showed right middle lobe opacity/ pulmonary vascular congestion shock resolved will DC Levophed, status post IV fluid, blood pressure improved, lactic acid normalized continue IV ceftriaxone 2 g Q 24 hours, blood cultures x2 growing Gram-negative larissa and group G Streptococcus, follow final sensitivities, urine culture mixed bacterial [place] [id number] today obtain ID consult acute encephalopathy resolving likely due to acute infection as per girlfriend noted to be confused for last 1 month got worsened in last 1 week no prior history of underlying dementia has not seen a physician in several years treat infection follow clinical course ,will obtain TSH B12 and folate acute hypoxic respiratory failure resolved likely due to pneumonia/CHF acute renal failure likely due to infection/pre renal /obstructive uropathy with calculi, left UVJ stone with mild left hydronephrosis scheduled for cystoscopy by Urology, obtain renal consult, hold lisinopril and nephrotoxins follow BMP acute diastolic congestive heart failure due to IV fluid, underlying ischemia echo showed EF 55-60% impaired relaxation, s/p IV diuretic,- 4 liters appears euvoulmic, follow BMP, BNP, clinical course and obtain Cardio eval elevated troponin troponin trending down, patient denies chest pain echo as above, EKG showed T-wave inversion inferior lateral lead will obtain repeat EKG, not a candidate for aggressive treatment since noted to have hematuria resume statins and beta-joey elevated LFTs likely secondary to sepsis,hepatitis serology nonreactive thrombocytopenia question secondary to sepsis, platelet drop down to 45,000, hematuria improving no other active bleeding noted follow CBC hematuria resolving question related to UVJ stone and UTI,clamp cbi follow cbc DVT prophylaxis with compression boots due to hematuria will avoid anticoagulant. patient will need continued inpatient hospitalization due to Gram-negative/Gram-positive bacteremia requiring IV antibiotics, acute renal failure, hematuria on cbi, and acute diastolic congestive heart failure requiring IV Lasix. Quality Stroke Does the patient have a stroke diagnosis?: No VTE Prior VTE?: Yes VTE Risk Level:: Medical - moderate - high VTE Device Contraindication: N/A - Device Ordered VTE Drug Contraindication: N/A - Med Ordered
--- NOTE | 2021-09-08 13:29 | P.CONNP_ITS ---
History of Present Illness Reason for Consult Consult date: 09/08/21 Chief Complaint Chief complaint: Sepsis, UTI, ALETHEA History of Present Illness Narrative: 81-year-old male with known CKD who does not follow up with physicians presented with altered his mental status. In the ED, the patient arrived confused, his underpants were soiled with bloody urine; the patient's blood pressure was 74/44, heart rate 89, respirations 28, O2 90% on 4 L nasal cannula and temperature 97.8 degrees.His initial workup revealed a white count of 24.7, Hgb 12, platelets of 89K (was 170K on last labs in 2018), sodium 136, potassium 4.7, chloride 101, carbon dioxide 17, BUN/creat 62/4.1 (was 28/1.2 in 2018). ?Lactic acid 7.7.? Troponin 2236, f/u was 1663.? Alb was 3.1.U/A showed positive nitrates, 3+ leukocyte esterase, 50-75 WBC along with glucosuria and proteinuria, trace yeast.? Respiratory panel negative including COVID test.?He was given fluid, and Zosyn.? His blood pressure did not improve and was admitted in ICU.In ICU, a central line was placed and the patient was started on Levophed.? Antibiotics were changed to ceftriaxone and Zithromax for coverage of both UTI and CAP, and the patient was given a single dose of Diflucan for the yeast in his urine.? The patient underwent an abdominal CT this morning which was notable for mild left hydronephrosis caused by calculi at the left ureterovesical junction.?He has stable hemodynamics and was transferred to the floor. Nephrology has been consulted to assist in his clinical care.. Review of Systems Review of Systems Yes Unobtainable due to mental condition [facility] Social History Social History Household Members: Significant Other Housing: House Do you presently have visiting nurse or other home services: No Patient Tobacco Use Status: Never used Tobacco e-Cigarette/Vaping Use: Never Used Second Hand Smoke Exposure: No Use of substances other than those prescribed or required for medical reasons: No Currently Displaying Signs/Symptoms of Drug Intoxication Withdrawal: No Have you been hit, kicked, punched, or otherwise hurt by someone within the past year? If so, by whom?: No Do you feel safe in your current relationship?: No Is there a partner from a previous relationship who is making you feel unsafe now?: No Are you made to feel afraid or neglected: No Advance Directives: No Advance Directives Information Provided: Yes Do you have thoughts of harming others: None Do you have a plan to hurt others: No Plan Recently lost weight without trying: No Nutrition Risks: No Nutritional Risk Poor oral hygiene: No service: No Current occupational status: retired [employer] Allergies Allergy/AdvReac Type Severity Reaction Status Date / Time No Known Allergies Allergy Unverified 12/03/19 16:48 Active Medications: Current Medications Acetaminophen (Acetaminophen 325 Mg Tablet) 650 mg PO Q6H PRN PRN Reason: Pain, Mild (Pain Scale 1-3) Atorvastatin Calcium (Atorvastatin Calcium 20 Mg Tablet) 20 mg PO BEDTIME MIKKI Ceftriaxone Sodium 2 gm/ (Sodium Chloride) 50 mls @ 100 mls/hr IV Q24H MIKKI Last Infusion: 09/08/21 12:12 Dose: Infused Omeprazole (Omeprazole 20 Mg Capsule.Dr) 20 mg PO DAILY@0630 MIKKI Ondansetron HCl (Ondansetron Hcl 4 Mg/2 Ml Vial) 4 mg IVPUSH Q8H PRN PRN Reason: Nausea Home Medications Medication Instructions Recorded Confirmed Last Taken Type lisinopril 30 mg tablet 1 tab PO DAILY 09/07/21 09/07/21 Unknown History metoprolol succinate 100 mg 1 tab PO DAILY 09/07/21 09/07/21 Unknown History tablet,extended release 24 hr rosuvastatin 10 mg tablet 1 tab PO BEDTIME 09/07/21 09/07/21 Unknown History Physical Exam Vital Signs: Last Vital Signs Temp 98.3 F 09/08/21 13:00 Pulse 88 09/08/21 13:00 Resp 18 09/08/21 13:00 BP 109/55 L 09/08/21 13:00 Pulse Ox 94 09/08/21 13:00 O2 Del Method 09/08/21 13:00 O2 Flow Rate 2 09/07/21 15:00 Oxygen Flow Rate 5 09/07/21 01:41 BMI result Body Mass Index 26.9 Const General: no acute distress Neck Neck: Yes supple Resp Auscultation: diminished lung sounds Cardio Rate: regular rate GI Palpation (GI): Soft to palpation Neuro General: moves all extremities Results Lab Results Result Diagrams: 09/08/21 05:40 09/08/21 05:40 Lab results: Chemistry 09/07/21 09/07/21 09/07/21 01:48 05:45 17:17 Sodium 136 139 138 Potassium 4.7 4.6 5.0 Carbon Dioxide 17 L 14 L 16 L BUN 62 H 62 H 74 H Creatinine 4.16 H* 3.84 H 4.03 H* Calcium 9.5 8.9 D 8.7 Phosphorus 2.2 L 3.4 09/08/21 05:40 Sodium 139 Potassium 4.7 Carbon Dioxide 15 L BUN 85 H Creatinine 4.00 H* Calcium 8.8 Phosphorus 3.4 Hematology 09/07/21 09/07/21 09/08/21 01:48 05:45 05:40 WBC 24.7 H 23.3 H 15.5 H Hgb 12.1 L 10.3 L 10.4 L Plt Count 89 L 64 L D 45 L D Urinalysis 09/07/21 02:34 Urine Color BROWN A Urine Appearance TURBID Urine pH 8.0 Ur Specific [place] 1.015 Urine Protein 3+ H Urine Glucose (UA) 100 H Urine Ketones 15 Urine Blood 3+ H Urine Nitrite POS H Ur Leukocyte Esterase 3+ H Urine RBC TNTC H Urine WBC 50-75 H Ur Squamous Epith Cells TRACE Assessment and Plan (1) Acute renal failure: Status: Acute Plan Has CKD 3 at baseline ALETHEA due to obstruction & septic & hemodynamic ATN 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
[2021-09-08] MEDS: levoFLOXacin/D5W 250 MG/50 ML PIGGYBACK 50 MG IV (15:02)
--- NOTE | 2021-09-08 15:48 | MHC.CLN ---
re: consult added ensure enlive bid r/t poor po monitor po intake closely
--- NOTE | 2021-09-08 15:57 | P.CNUR_ITS ---
History of Present Illness Consult details Consult date: 09/07/21 Narrative: Urology consultation - left hydronephrosis 81-year-old male admitted with septic shock. On being support when I saw him. Imaging shows left hydroureteronephrosis with debris at the bottom of his ureter. - CT ?Mild left hydronephrosis caused by a cluster of calculi at the level the left ureterovesical junction. Prior recurrent UTI and pyelonephritis Recommend cystoscopy with retrograde and stent placement left side Review of Systems 2 Constitutional: Constitutional: Reports as per HPI and Reports no additional constitutional complaints Cardiovascular: Cardiovascular: Reports as per HPI and Reports no additional cardiovascular complaints Respiratory: Respiratory: Reports as per HPI and Reports no additional respiratory complaints Gastrointestinal: Gastrointestinal: Reports as per HPI and Reports no additional gastrointestinal complaints Genitourinary: Genitourinary: Reports as per HPI Musculoskeletal: Musculoskeletal: Reports no additional musculoskeletal complaints and Reports as per HPI Neurologic: Reports system reviewed and no additional complaints, except as documented and Reports as per HPI [facility] Social History Social History Household Members: Significant Other Housing: House Do you presently have visiting nurse or other home services: No Patient Tobacco Use Status: Never used Tobacco e-Cigarette/Vaping Use: Never Used Second Hand Smoke Exposure: No Use of substances other than those prescribed or required for medical reasons: No Currently Displaying Signs/Symptoms of Drug Intoxication Withdrawal: No Have you been hit, kicked, punched, or otherwise hurt by someone within the past year? If so, by whom?: No Do you feel safe in your current relationship?: No Is there a partner from a previous relationship who is making you feel unsafe now?: No Are you made to feel afraid or neglected: No Advance Directives: No Advance Directives Information Provided: Yes Do you have thoughts of harming others: None Do you have a plan to hurt others: No Plan Recently lost weight without trying: No Nutrition Risks: No Nutritional Risk Poor oral hygiene: No service: No Current occupational status: retired Meds Allergies Allergy/AdvReac Type Severity Reaction Status Date / Time No Known Allergies Allergy Unverified 12/03/19 16:48 Active Medications: Current Medications Acetaminophen (Acetaminophen 325 Mg Tablet) 650 mg PO Q6H PRN PRN Reason: Pain, Mild (Pain Scale 1-3) Atorvastatin Calcium (Atorvastatin Calcium 20 Mg Tablet) 20 mg PO BEDTIME MIKKI Levofloxacin (Levaquin) 250 mg in 50 mls @ 50 mls/hr IV Q24H MIKKI Last Admin: 09/08/21 15:02 Dose: 50 mls/hr Omeprazole (Omeprazole 20 Mg Capsule.Dr) 20 mg PO DAILY@0630 MIKKI Ondansetron HCl (Ondansetron Hcl 4 Mg/2 Ml Vial) 4 mg IVPUSH Q8H PRN PRN Reason: Nausea Home Medications Medication Instructions Recorded Confirmed Last Taken Type lisinopril 30 mg tablet 1 tab PO DAILY 09/07/21 09/07/21 Unknown History metoprolol succinate 100 mg 1 tab PO DAILY 09/07/21 09/07/21 Unknown History tablet,extended release 24 hr rosuvastatin 10 mg tablet 1 tab PO BEDTIME 09/07/21 09/07/21 Unknown History Physical Exam Vital Signs: Vital Signs: Last Vital Signs Temp 99.5 F 09/08/21 15:09 Pulse 81 09/08/21 15:09 Resp 18 09/08/21 15:09 BP 113/59 L 09/08/21 15:09 Pulse Ox 96 09/08/21 15:09 O2 Del Method 09/08/21 15:09 O2 Flow Rate 2 09/07/21 15:00 Oxygen Flow Rate 5 09/07/21 01:41 BMI result Body Mass Index 26.9 Const: General: cooperative, healthy appearing, comfortable and no acute distress Orientation/consciousness: patient oriented x3 HEENT: Face and sinus: Yes normal facial exam Mouth: moist mucous membranes Neck: Neck: Yes normal visual inspection, Yes full ROM and Yes trachea midline Chest: Chest palpation & inspection: normal inspection of the chest Resp: Effort & Inspection: normal respiratory effort, able to speak in complete sentences and no respiratory distress GI: Inspection: Yes normal to inspection Back/Spine/Pelvis: Cervical Spine: normal cervical lordosis Thoracic/Lumbar Spine: thoracic and lumbar spine normal to inspection Skin: General skin exam: no rashes or lesions noted Neuro: General: patient oriented x3, tone normal and moves all extremities Extrem: General: Yes normal to inspection and Yes capillary refill normal Results Labs Result diagrams: 09/08/21 05:40 09/08/21 05:40 Labs: Abnormal lab results 06/09/07/21 09/08/21 Range/Units 17:17 17:17 05:40 WBC 15.5 H (4.8-10.8) X10*3/uL RBC 3.61 L (4.60-5.80) X10*6/uL Hgb 10.4 L (14.0-18.0) g/dl Hct 32.2 L (42.0-52.0) % RDW 16.9 H (11.0-16.0) % Plt Count 45 L D (160-400) X10*3/uL Band Neutrophils % 23 H (3-5) % Lymphocytes % (Manual) 2 L (20-40) % Abs Neuts (Manual) 14.7 H (2.0-8.3) X10*3/uL Lymphocytes # (Manual) 0.3 L (1.2-4.9) X10*3/uL Chloride (96-108) mmol/L Carbon Dioxide 16 L (22-29) mmol/L BUN 74 H (9-16) mg/dL Creatinine 4.03 H* (0.5-1.4) mg/dL Total Bilirubin (0.0-1.0) mg/dL AST (5-37) U/L B-Natriuretic Peptide 2355 H (<100) pg/mL Total Protein (6.5-8.0) g/dL Albumin (3.5-5.0) g/dL 09/08/21 Range/Units 05:40 WBC (4.8-10.8) X10*3/uL RBC (4.60-5.80) X10*6/uL Hgb (14.0-18.0) g/dl Hct (42.0-52.0) % RDW (11.0-16.0) % Plt Count (160-400) X10*3/uL Band Neutrophils % (3-5) % Lymphocytes % (Manual) (20-40) % Abs Neuts (Manual) (2.0-8.3) X10*3/uL Lymphocytes # (Manual) (1.2-4.9) X10*3/uL Chloride 109 H (96-108) mmol/L Carbon Dioxide 15 L (22-29) mmol/L BUN 85 H (9-16) mg/dL Creatinine 4.00 H* (0.5-1.4) mg/dL Total Bilirubin 2.3 H (0.0-1.0) mg/dL AST 101 H (5-37) U/L B-Natriuretic Peptide (<100) pg/mL Total Protein 5.9 L (6.5-8.0) g/dL Albumin 3.0 L (3.5-5.0) g/dL Short CBC 09/08/21 Range/Units 05:40 WBC 15.5 H (4.8-10.8) X10*3/uL Hgb 10.4 L (14.0-18.0) g/dl Hct 32.2 L (42.0-52.0) % Plt Count 45 L D (160-400) X10*3/uL BMP 09/07/21 09/08/21 17:17 05:40 Sodium 138 139 Potassium 5.0 4.7 Chloride 108 109 H Carbon Dioxide 16 L 15 L BUN 74 H 85 H Creatinine 4.03 H* 4.00 H* Calcium 8.7 8.8 Liver Function 09/08/21 Range/Units 05:40 Total Bilirubin 2.3 H (0.0-1.0) mg/dL AST 101 H (5-37) U/L ALT 30 (0-40) U/L Alkaline Phosphatase 83 (39-117) U/L Albumin 3.0 L (3.5-5.0) g/dL Urine 09/07/21 Range/Units 02:34 Urine Color BROWN A Urine Appearance TURBID Urine pH 8.0 (5.0-8.0) Ur Specific [place] 1.015 (1.005-1.025) Urine Protein 3+ H (NEG-TRACE) MG/DL Urine Glucose (UA) 100 H (NEG) MG/DL All other labs normal. Assessment and Plan (1) Hydronephrosis: Status: Acute (2) Ureteric stone: Status: Acute Plan Risks, benefits and alternatives to therapy were discussed. These include but are not limited to infection, bleeding, damage to local organs and tissues, need for further interventions. Anesthetic risks regarding cardiac arrhythmia, blood clots, and potential mortality were discussed. The patient understands the typical recovery time and the outpatient nature of the procedure. After consideration of these risks the patient gives full informed consent and they wish to move ahead with the procedure. Cystoscopy, left retrograde, left stent placement Procedures Date of Service Date of Service: 09/07/21
[2021-09-08] MEDS: Haloperidol Lactate 5 MG/ML VIAL 1 MG IV (16:19)
--- NOTE | 2021-09-08 22:49 | PC.NURSE ---
Patient has [address] Documentation regarding I&O of CBI bags appears off. Patient bladder scanned at 2200 for 70ml, pink tinged urine is draining from hernandez.
[2021-09-09] VITALS (11 sets, daily range): BP systolic 106–134; BP diastolic 47–76; PULSE 83–99; RESP 16–22; TEMP 36.4–37.7; O2SAT 94–98
[2021-09-09 07:43] LABS: Mean Corpuscular HGB Conc 32.3 g/dl (31.0-36.0); Mean Corpuscular Hemoglobin 28.5 pg (27.0-33.0); Mean Corpuscular Volume 88.3 fL (80.0-98.0); Mean Platelet Volume 11.2 fL (9.4-12.4); Red Blood Count 3.51 X10*6/uL (4.60-5.80); Red Cell Distribution Width 17.2 % (11.0-16.0); White Blood Count 12.3 X10*3/uL (4.8-10.8)
[2021-09-09 07:48] LABS: Platelet Count 47 X10*3/uL (160-400)
[2021-09-09 08:05] LABS: Lactate Dehydrogenase 191 U/L (118-273)
[2021-09-09 08:08] LABS: Lactate Dehydrogenase 200 U/L (118-273)
[2021-09-09 08:09] LABS: Alanine Aminotransferase 30 U/L (0-40); Albumin Level 2.9 g/dL (3.5-5.0); Alkaline Phosphatase 80 U/L (39-117); Anion Gap 19 (12-20); Aspartate Amino Transferase 44 U/L (5-37); Bilirubin Direct 0.6 mg/dL (0.0-0.5); Bilirubin Total 1.3 mg/dL (0.0-1.0); Blood Urea Nitrogen 99 mg/dL (9-16); Carbon Dioxide 18 mmol/L (22-29); Chloride 112 mmol/L (96-108); Cholesterol 91 mg/dL; Creatinine Clr Calc Pharmacy 16.6; Estimated Glomerular Filt Rate 17; Glucose Random 137 mg/dL (60-115); HDL Cholesterol < 5 mg/dL; LDL Cholesterol Calculated 33 mg/dl; Potassium 4.6 mmol/L (3.3-5.1); Sodium 144 mmol/L (135-145); Total Protein 5.9 g/dL (6.5-8.0); Triglycerides 269 mg/dL
--- NOTE | 2021-09-09 08:25 | P.CONAN_ITS ---
HPI - Anesthesia Eval Consult details Narrative: left hydronephrosis PMFSH Active Problems Active Problems: All Active Problems (Updated 09/08/21 @ 16:08 by Jordan Meeks MD) Ureteric stone (Acute) Hydronephrosis (Acute) Lactic acidosis (Acute) Acute diastolic CHF (congestive heart failure) (Acute) Acute encephalopathy (Acute) Acute respiratory failure with hypoxia (Acute) Acute renal failure (Acute) Acute UTI (Acute) Pneumonia (Acute) Acute hypotension (Acute) Past Medical History Medical History (Updated 09/09/21 @ 08:32 by Jordan Bang MD) Accelerated essential hypertension Hyperlipidemia Pulmonary embolism Family History Family history of problems with anesthesia: No Surgical History History of Problems with Anesthesia: No Social History Social History Household Members: Significant Other Housing: House Do you presently have visiting nurse or other home services: No Patient Tobacco Use Status: Never used Tobacco e-Cigarette/Vaping Use: Never Used Second Hand Smoke Exposure: No Use of substances other than those prescribed or required for medical reasons: No Currently Displaying Signs/Symptoms of Drug Intoxication Withdrawal: No Have you been hit, kicked, punched, or otherwise hurt by someone within the past year? If so, by whom?: No Do you feel safe in your current relationship?: No Is there a partner from a previous relationship who is making you feel unsafe now?: No Are you made to feel afraid or neglected: No Advance Directives: No Advance Directives Information Provided: Yes Do you have thoughts of harming others: None Do you have a plan to hurt others: No Plan Recently lost weight without trying: No Nutrition Risks: No Nutritional Risk Poor oral hygiene: No service: No Current occupational status: retired [employer] Allergies Allergy/AdvReac Type Severity Reaction Status Date / Time No Known Allergies Allergy Unverified 12/03/19 16:48 Active Medications: Current Medications Acetaminophen (Acetaminophen 325 Mg Tablet) 650 mg PO Q6H PRN PRN Reason: Pain, Mild (Pain Scale 1-3) Atorvastatin Calcium (Atorvastatin Calcium 20 Mg Tablet) 20 mg PO BEDTIME [facility] Last Admin: 09/08/21 21:30 Dose: Not Given Levofloxacin (Levaquin) 250 mg in 50 mls @ 50 mls/hr IV Q24H [facility] Last Infusion: 09/08/21 16:09 Dose: Infused Omeprazole (Omeprazole 20 Mg Capsule.Dr) 20 mg PO DAILY@0630 MIKKI Last Admin: 09/09/21 06:00 Dose: Not Given Ondansetron HCl (Ondansetron Hcl 4 Mg/2 Ml Vial) 4 mg IVPUSH Q8H PRN PRN Reason: Nausea Home Medications Medication Instructions Recorded Confirmed Last Taken Type lisinopril 30 mg tablet 1 tab PO DAILY 09/07/21 09/07/21 Unknown History metoprolol succinate 100 mg 1 tab PO DAILY 09/07/21 09/07/21 Unknown History tablet,extended release 24 hr rosuvastatin 10 mg tablet 1 tab PO BEDTIME 09/07/21 09/07/21 Unknown History Exam Exam Date and Time: September 09, [id number] Height,Weight and Vital Signs: Height 5 ft 9 in Weight 82.6 kg Last Vital Signs tTemp 97.8 F 09/09/21 07:46 Pulse 88 09/09/21 07:46 Resp 18 09/09/21 07:46 BP 130/67 09/09/21 07:46 Pulse Ox 94 09/09/21 07:46 O2 Del Method 09/09/21 07:46 O2 Flow Rate 2 09/07/21 15:00 Oxygen Flow Rate 5 09/07/21 01:41 Pertinent Lab Results Pertinent Lab Results: Laboratory Tests 09/07/21 09/07/21 09/07/21 01:48 01:48 01:48 WBC 24.7 H RBC 4.16 L Hgb 12.1 L Hct 37.0 L MCV 88.9 MCH 29.1 MCHC 32.7 RDW 16.4 H Plt Count 89 L MPV 10.6 Immature Gran % (Auto) Cancelled Neut % (Auto) Cancelled Lymph % (Auto) Cancelled [place] % (Auto) Cancelled Eos % (Auto) Cancelled Baso % (Auto) Cancelled Lymph # (Auto) Cancelled [place] # (Auto) Cancelled Eos # (Auto) Cancelled Baso # (Auto) Cancelled Abs Immat Gran (auto) Cancelled Absolute Neuts (auto) Cancelled Absolute Nucleated RBC 0.000 Nucleated RBC % (auto) 0.0 Neutrophils % (Manual) 50 Band Neutrophils % 38 H Lymphocytes % (Manual) 4 L Monocytes % (Manual) 5 Metamyelocytes % 3 Abs Neuts (Manual) 21.7 H Lymphocytes # (Manual) 1.0 L Monocytes # (Manual) 1.2 Metamyelocytes # 0.7 Toxic Vacuolation PRESENT Dohle Bodies PRESENT Platelet Estimate DECREASED Large Platelets PRESENT Plt Morphology Comment NORMAL RBC Morphology NOTED Polychromasia Macrocytosis 1+ (5-14) [place] Cells 1+ (0-2) PT INR APTT VBG pH VBG pCO2 VBG pO2 VBG HCO3 VBG O2 Saturation VBG Base Excess Sodium 136 Potassium 4.7 Chloride 101 Carbon Dioxide 17 L Anion Gap 23 H BUN 62 H Creatinine 4.16 H* Estim Creat Clear Calc 6.9 Estimated GFR 14 Random Glucose Fasting Glucose 68 Lactic Acid 7.7 H* Lactic Acid F/U @ 2Hr Lactic Acid F/U @ 4Hr Calcium 9.5 Phosphorus 2.2 L Magnesium 1.8 Total Bilirubin 2.3 H Direct Bilirubin 1.1 H AST 74 H ALT 17 Alkaline Phosphatase 169 H Lactate Dehydrogenase Total Creatine Kinase Troponin I High Sens C-Reactive Protein B-Natriuretic Peptide Total Protein 6.5 Albumin 3.1 L Triglycerides Cholesterol LDL Cholesterol, Calc HDL Cholesterol Urine Color Urine Appearance Urine pH Ur Specific [place] Urine Protein Urine Glucose (UA) Urine Ketones Urine Blood Urine Nitrite Ur Leukocyte Esterase Urine RBC Urine WBC Ur Squamous Epith Cells Triple Phos Crystals Amorphous Sediment Urine Bacteria Urine Yeast Stool Occult Blood COVID-19 (CRISTIAN) COVID-19 Clin Com Hepatitis A IgM Ab Hep Bs Antigen Hep Bs Antibody Hep B Core Total Ab Hepatitis C Ab (EIA) Influenza Type A (JUNG) Influenza Type B (JUNG) Influenza A & B Note 09/07/21 09/07/21 09/07/21 01:48 01:48 02:09 WBC RBC Hgb Hct MCV MCH MCHC RDW Plt Count MPV Immature Gran % (Auto) Neut % (Auto) Lymph % (Auto) [place] % (Auto) Eos % (Auto) Baso % (Auto) Lymph # (Auto) [place] # (Auto) Eos # (Auto) Baso # (Auto) Abs Immat Gran (auto) Absolute Neuts (auto) Absolute Nucleated RBC Nucleated RBC % (auto) Neutrophils % (Manual) Band Neutrophils % Lymphocytes % (Manual) Monocytes % (Manual) Metamyelocytes % Abs Neuts (Manual) Lymphocytes # (Manual) Monocytes # (Manual) Metamyelocytes # Toxic Vacuolation Dohle Bodies Platelet Estimate Large Platelets Plt Morphology Comment RBC Morphology Polychromasia Macrocytosis [place] Cells PT INR APTT VBG pH VBG pCO2 VBG pO2 VBG HCO3 VBG O2 Saturation VBG Base Excess Sodium Potassium Chloride Carbon Dioxide Anion Gap BUN Creatinine Estim Creat Clear Calc Estimated GFR Random Glucose Fasting Glucose Lactic Acid Lactic Acid F/U @ 2Hr Lactic Acid F/U @ 4Hr Calcium Phosphorus Magnesium Total Bilirubin Direct Bilirubin AST ALT Alkaline Phosphatase Lactate Dehydrogenase Total Creatine Kinase Troponin I High Sens 2236.7 H* C-Reactive Protein B-Natriuretic Peptide 777 H Total Protein Albumin Triglycerides Cholesterol LDL Cholesterol, Calc HDL Cholesterol Urine Color Urine Appearance Urine pH Ur Specific [place] Urine Protein Urine Glucose (UA) Urine Ketones Urine Blood Urine Nitrite Ur Leukocyte Esterase Urine RBC Urine WBC Ur Squamous Epith Cells Triple Phos Crystals Amorphous Sediment Urine Bacteria Urine Yeast Stool Occult Blood COVID-19 (CRISTIAN) Negative COVID-19 Clin Com See Note Hepatitis A IgM Ab Hep Bs Antigen Hep Bs Antibody Hep B Core Total Ab Hepatitis C Ab (EIA) Influenza Type A (JUNG) Negative Influenza Type B (JUNG) Negative Influenza A & B Note See Note 09/07/21 09/07/21 09/07/21 02:34 04:27 04:27 WBC RBC Hgb Hct MCV MCH MCHC RDW Plt Count MPV Immature Gran % (Auto) Neut % (Auto) Lymph % (Auto) [place] % (Auto) Eos % (Auto) Baso % (Auto) Lymph # (Auto) [place] # (Auto) Eos # (Auto) Baso # (Auto) Abs Immat Gran (auto) Absolute Neuts (auto) Absolute Nucleated RBC Nucleated RBC % (auto) Neutrophils % (Manual) Band Neutrophils % Lymphocytes % (Manual) Monocytes % (Manual) Metamyelocytes % Abs Neuts (Manual) Lymphocytes # (Manual) Monocytes # (Manual) Metamyelocytes # Toxic Vacuolation Dohle Bodies Platelet Estimate Large Platelets Plt Morphology Comment RBC Morphology Polychromasia Macrocytosis [place] Cells PT INR APTT VBG pH VBG pCO2 VBG pO2 VBG HCO3 VBG O2 Saturation VBG Base Excess Sodium Potassium Chloride Carbon Dioxide Anion Gap BUN Creatinine Estim Creat Clear Calc Estimated GFR Random Glucose Fasting Glucose Lactic Acid Lactic Acid F/U @ 2Hr 3.8 H* Lactic Acid F/U @ 4Hr Calcium Phosphorus Magnesium Total Bilirubin Direct Bilirubin AST ALT Alkaline Phosphatase Lactate Dehydrogenase Total Creatine Kinase Troponin I High Sens 1663.0 H* C-Reactive Protein B-Natriuretic Peptide Total Protein Albumin Triglycerides Cholesterol LDL Cholesterol, Calc HDL Cholesterol Urine Color BROWN A Urine Appearance TURBID Urine pH 8.0 Ur Specific [place] 1.015 Urine Protein 3+ H Urine Glucose (UA) 100 H Urine Ketones 15 Urine Blood 3+ H Urine Nitrite POS H Ur Leukocyte Esterase 3+ H Urine RBC TNTC H Urine WBC 50-75 H Ur Squamous Epith Cells TRACE Triple Phos Crystals 2+ Amorphous Sediment 3+ Urine Bacteria 4+ Urine Yeast TRACE Stool Occult Blood COVID-19 (CRISTIAN) COVID-19 Clin Com Hepatitis A IgM Ab Hep Bs Antigen Hep Bs Antibody Hep B Core Total Ab Hepatitis C Ab (EIA) Influenza Type A (JUNG) Influenza Type B (JUNG) Influenza A & B Note 09/07/21 09/07/21 09/07/21 04:32 05:44 05:45 WBC 23.3 H RBC 3.51 L Hgb 10.3 L Hct 31.4 L MCV 89.5 MCH 29.3 MCHC 32.8 RDW 16.6 H Plt Count 64 L D MPV 10.0 Immature Gran % (Auto) Cancelled Neut % (Auto) Cancelled Lymph % (Auto) Cancelled [place] % (Auto) Cancelled Eos % (Auto) Cancelled Baso % (Auto) Cancelled Lymph # (Auto) Cancelled [place] # (Auto) Cancelled Eos # (Auto) Cancelled Baso # (Auto) Cancelled Abs Immat Gran (auto) Cancelled Absolute Neuts (auto) Cancelled Absolute Nucleated RBC 0.000 Nucleated RBC % (auto) 0.0 Neutrophils % (Manual) 54 Band Neutrophils % 35 H Lymphocytes % (Manual) 3 L Monocytes % (Manual) 4 Metamyelocytes % 4 Abs Neuts (Manual) 20.7 H Lymphocytes # (Manual) 0.7 L Monocytes # (Manual) 0.9 Metamyelocytes # 0.9 Toxic Vacuolation PRESENT Dohle Bodies PRESENT Platelet Estimate DECREASED Large Platelets PRESENT Plt Morphology Comment NORMAL RBC Morphology NOTED Polychromasia Macrocytosis 1+ (5-14) [place] Cells 1+ (0-2) PT INR APTT VBG pH 7.34 VBG pCO2 29 VBG pO2 58 VBG HCO3 16 L VBG O2 Saturation 83.0 VBG Base Excess -8.3 Sodium Potassium Chloride Carbon Dioxide Anion Gap BUN Creatinine Estim Creat Clear Calc Estimated GFR Random Glucose Fasting Glucose Lactic Acid Lactic Acid F/U @ 2Hr Lactic Acid F/U @ 4Hr Calcium Phosphorus Magnesium Total Bilirubin Direct Bilirubin AST ALT Alkaline Phosphatase Lactate Dehydrogenase Total Creatine Kinase Troponin I High Sens 1502.4 H* C-Reactive Protein B-Natriuretic Peptide Total Protein Albumin Triglycerides Cholesterol LDL Cholesterol, Calc HDL Cholesterol Urine Color Urine Appearance Urine pH Ur Specific [place] Urine Protein Urine Glucose (UA) Urine Ketones Urine Blood Urine Nitrite Ur Leukocyte Esterase Urine RBC Urine WBC Ur Squamous Epith Cells Triple Phos Crystals Amorphous Sediment Urine Bacteria Urine Yeast Stool Occult Blood COVID-19 (CRISTIAN) COVID-19 Clin Com Hepatitis A IgM Ab Hep Bs Antigen Hep Bs Antibody Hep B Core Total Ab Hepatitis C Ab (EIA) Influenza Type A (JUNG) Influenza Type B (JUNG) Influenza A & B Note 09/07/21 09/07/21 09/07/21 05:45 07:25 07:25 WBC RBC Hgb Hct MCV MCH MCHC RDW Plt Count MPV Immature Gran % (Auto) Neut % (Auto) Lymph % (Auto) [place] % (Auto) Eos % (Auto) Baso % (Auto) Lymph # (Auto) [place] # (Auto) Eos # (Auto) Baso # (Auto) Abs Immat Gran (auto) Absolute Neuts (auto) Absolute Nucleated RBC Nucleated RBC % (auto) Neutrophils % (Manual) Band Neutrophils % Lymphocytes % (Manual) Monocytes % (Manual) Metamyelocytes % Abs Neuts (Manual) Lymphocytes # (Manual) Monocytes # (Manual) Metamyelocytes # Toxic Vacuolation Dohle Bodies Platelet Estimate Large Platelets Plt Morphology Comment RBC Morphology Polychromasia Macrocytosis [place] Cells PT Cancelled 18.6 H INR Cancelled 1.6 H APTT 35.2 VBG pH VBG pCO2 VBG pO2 VBG HCO3 VBG O2 Saturation VBG Base Excess Sodium 139 Potassium 4.6 Chloride 109 H Carbon Dioxide 14 L Anion Gap 21 H BUN 62 H Creatinine 3.84 H Estim Creat Clear Calc 7.5 Estimated GFR 15 Random Glucose 74 Fasting Glucose Lactic Acid Lactic Acid F/U @ 2Hr Lactic Acid F/U @ 4Hr Calcium 8.9 D Phosphorus 3.4 Magnesium Total Bilirubin 2.4 H Direct Bilirubin AST 96 H ALT 20 Alkaline Phosphatase 97 D Lactate Dehydrogenase Total Creatine Kinase Troponin I High Sens C-Reactive Protein 19.50 H B-Natriuretic Peptide Total Protein 6.0 L Albumin 3.2 L Triglycerides Cholesterol LDL Cholesterol, Calc HDL Cholesterol Urine Color Urine Appearance Urine pH Ur Specific [place] Urine Protein Urine Glucose (UA) Urine Ketones Urine Blood Urine Nitrite Ur Leukocyte Esterase Urine RBC Urine WBC Ur Squamous Epith Cells Triple Phos Crystals Amorphous Sediment Urine Bacteria Urine Yeast Stool Occult Blood COVID-19 (CRISTIAN) COVID-19 Clin Com Hepatitis A IgM Ab Hep Bs Antigen Hep Bs Antibody Hep B Core Total Ab Hepatitis C Ab (EIA) Influenza Type A (JUNG) Influenza Type B (JUNG) Influenza A & B Note 09/07/21 09/07/21 09/07/21 07:25 17:17 17:17 WBC RBC Hgb Hct MCV MCH MCHC RDW Plt Count MPV Immature Gran % (Auto) Neut % (Auto) Lymph % (Auto) [place] % (Auto) Eos % (Auto) Baso % (Auto) Lymph # (Auto) [place] # (Auto) Eos # (Auto) Baso # (Auto) Abs Immat Gran (auto) Absolute Neuts (auto) Absolute Nucleated RBC Nucleated RBC % (auto) Neutrophils % (Manual) Band Neutrophils % Lymphocytes % (Manual) Monocytes % (Manual) Metamyelocytes % Abs Neuts (Manual) Lymphocytes # (Manual) Monocytes # (Manual) Metamyelocytes # Toxic Vacuolation Dohle Bodies Platelet Estimate Large Platelets Plt Morphology Comment RBC Morphology Polychromasia Macrocytosis [place] Cells PT INR APTT VBG pH VBG pCO2 VBG pO2 VBG HCO3 VBG O2 Saturation VBG Base Excess Sodium 138 Potassium 5.0 Chloride 108 Carbon Dioxide 16 L Anion Gap 19 BUN 74 H Creatinine 4.03 H* Estim Creat Clear Calc 14.3 Estimated GFR 14 Random Glucose 86 Fasting Glucose Lactic Acid 1.6 Lactic Acid F/U @ 2Hr Lactic Acid F/U @ 4Hr 2.9 H* Calcium 8.7 Phosphorus Magnesium Total Bilirubin Direct Bilirubin AST ALT Alkaline Phosphatase Lactate Dehydrogenase Total Creatine Kinase Troponin I High Sens C-Reactive Protein B-Natriuretic Peptide Total Protein Albumin Triglycerides Cholesterol LDL Cholesterol, Calc HDL Cholesterol Urine Color Urine Appearance Urine pH Ur Specific [place] Urine Protein Urine Glucose (UA) Urine Ketones Urine Blood Urine Nitrite Ur Leukocyte Esterase Urine RBC Urine WBC Ur Squamous Epith Cells Triple Phos Crystals Amorphous Sediment Urine Bacteria Urine Yeast Stool Occult Blood COVID-19 (CRISTIAN) COVID-19 Clin Com Hepatitis A IgM Ab Hep Bs Antigen Hep Bs Antibody Hep B Core Total Ab Hepatitis C Ab (EIA) Influenza Type A (JUNG) Influenza Type B (JUNG) Influenza A & B Note 09/07/21 09/07/21 09/07/21 17:17 17:17 21:05 WBC RBC Hgb Hct MCV MCH MCHC RDW Plt Count MPV Immature Gran % (Auto) Neut % (Auto) Lymph % (Auto) [place] % (Auto) Eos % (Auto) Baso % (Auto) Lymph # (Auto) [place] # (Auto) Eos # (Auto) Baso # (Auto) Abs Immat Gran (auto) Absolute Neuts (auto) Absolute Nucleated RBC Nucleated RBC % (auto) Neutrophils % (Manual) Band Neutrophils % Lymphocytes % (Manual) Monocytes % (Manual) Metamyelocytes % Abs Neuts (Manual) Lymphocytes # (Manual) Monocytes # (Manual) Metamyelocytes # Toxic Vacuolation Dohle Bodies Platelet Estimate Large Platelets Plt Morphology Comment RBC Morphology Polychromasia Macrocytosis [place] Cells PT INR APTT VBG pH VBG pCO2 VBG pO2 VBG HCO3 VBG O2 Saturation VBG Base Excess Sodium Potassium Chloride Carbon Dioxide Anion Gap BUN Creatinine Estim Creat Clear Calc Estimated GFR Random Glucose Fasting Glucose Lactic Acid Lactic Acid F/U @ 2Hr Lactic Acid F/U @ 4Hr Calcium Phosphorus Magnesium Total Bilirubin Direct Bilirubin AST ALT Alkaline Phosphatase Lactate Dehydrogenase Total Creatine Kinase Troponin I High Sens C-Reactive Protein B-Natriuretic Peptide 2355 H Total Protein Albumin Triglycerides Cholesterol LDL Cholesterol, Calc HDL Cholesterol Urine Color Urine Appearance Urine pH Ur Specific [place] Urine Protein Urine Glucose (UA) Urine Ketones Urine Blood Urine Nitrite Ur Leukocyte Esterase Urine RBC Urine WBC Ur Squamous Epith Cells Triple Phos Crystals Amorphous Sediment Urine Bacteria Urine Yeast Stool Occult Blood POSITIVE COVID-19 (CRISTIAN) COVID-19 Clin Com Hepatitis A IgM Ab Nonreactive Hep Bs Antigen Negative Hep Bs Antibody NONREACTIVE Hep B Core Total Ab Nonreactive Hepatitis C Ab (EIA) Nonreactive Influenza Type A (JUNG) Influenza Type B (JUNG) Influenza A & B Note 09/08/21 09/08/21 09/09/21 05:40 05:40 07:15 WBC 15.5 H 12.3 H RBC 3.61 L 3.51 L Hgb 10.4 L 10.0 L Hct 32.2 L 31.0 L MCV 89.2 88.3 MCH 28.8 28.5 MCHC 32.3 32.3 RDW 16.9 H 17.2 H Plt Count 45 L D 47 L MPV 12.0 11.2 Immature Gran % (Auto) Cancelled Neut % (Auto) Cancelled Lymph % (Auto) Cancelled [place] % (Auto) Cancelled Eos % (Auto) Cancelled Baso % (Auto) Cancelled Lymph # (Auto) Cancelled [place] # (Auto) Cancelled Eos # (Auto) Cancelled Baso # (Auto) Cancelled Abs Immat Gran (auto) Cancelled Absolute Neuts (auto) Cancelled Absolute Nucleated RBC 0.000 0.000 Nucleated RBC % (auto) 0.0 0.0 Neutrophils % (Manual) 72 Band Neutrophils % 23 H Lymphocytes % (Manual) 2 L Monocytes % (Manual) 2 Metamyelocytes % 1 Abs Neuts (Manual) 14.7 H Lymphocytes # (Manual) 0.3 L Monocytes # (Manual) 0.3 Metamyelocytes # 0.2 Toxic Vacuolation PRESENT Dohle Bodies PRESENT Platelet Estimate DECREASED Large Platelets Plt Morphology Comment NORMAL RBC Morphology NOTED Polychromasia 1+ (0-2) Macrocytosis 1+ (5-14) [place] Cells 1+ (0-2) PT INR APTT VBG pH VBG pCO2 VBG pO2 VBG HCO3 VBG O2 Saturation VBG Base Excess Sodium 139 Potassium 4.7 Chloride 109 H Carbon Dioxide 15 L Anion Gap 20 BUN 85 H Creatinine 4.00 H* Estim Creat Clear Calc 14.4 Estimated GFR 14 Random Glucose 89 Fasting Glucose Lactic Acid Lactic Acid F/U @ 2Hr Lactic Acid F/U @ 4Hr Calcium 8.8 Phosphorus 3.4 Magnesium 2.1 Total Bilirubin 2.3 H Direct Bilirubin AST 101 H ALT 30 Alkaline Phosphatase 83 Lactate Dehydrogenase Total Creatine Kinase Troponin I High Sens C-Reactive Protein B-Natriuretic Peptide Total Protein 5.9 L Albumin 3.0 L Triglycerides Cholesterol LDL Cholesterol, Calc HDL Cholesterol Urine Color Urine Appearance Urine pH Ur Specific [place] Urine Protein Urine Glucose (UA) Urine Ketones Urine Blood Urine Nitrite Ur Leukocyte Esterase Urine RBC Urine WBC Ur Squamous Epith Cells Triple Phos Crystals Amorphous Sediment Urine Bacteria Urine Yeast Stool Occult Blood COVID-19 (CRISTIAN) COVID-19 Clin Com Hepatitis A IgM Ab Hep Bs Antigen Hep Bs Antibody Hep B Core Total Ab Hepatitis C Ab (EIA) Influenza Type A (JUNG) Influenza Type B (JUNG) Influenza A & B Note 09/09/21 09/09/2122 07:15 07:15 07:15 WBC RBC Hgb Hct MCV MCH MCHC RDW Plt Count MPV Immature Gran % (Auto) Neut % (Auto) Lymph % (Auto) [place] % (Auto) Eos % (Auto) Baso % (Auto) Lymph # (Auto) [place] # (Auto) Eos # (Auto) Baso # (Auto) Abs Immat Gran (auto) Absolute Neuts (auto) Absolute Nucleated RBC Nucleated RBC % (auto) Neutrophils % (Manual) Band Neutrophils % Lymphocytes % (Manual) Monocytes % (Manual) Metamyelocytes % Abs Neuts (Manual) Lymphocytes # (Manual) Monocytes # (Manual) Metamyelocytes # Toxic Vacuolation Dohle Bodies Platelet Estimate Large Platelets Plt Morphology Comment RBC Morphology Polychromasia Macrocytosis [place] Cells PT INR APTT VBG pH VBG pCO2 VBG pO2 VBG HCO3 VBG O2 Saturation VBG Base Excess Sodium 144 Potassium 4.6 Chloride 112 H Carbon Dioxide 18 L Anion Gap 19 BUN 99 H Creatinine 3.48 H Estim Creat Clear Calc 16.6 Estimated GFR 17 Random Glucose 137 H D Fasting Glucose Lactic Acid Lactic Acid F/U @ 2Hr Lactic Acid F/U @ 4Hr Calcium 9.0 Phosphorus Magnesium Total Bilirubin 1.3 H Direct Bilirubin 0.6 H AST 44 H D ALT 30 Alkaline Phosphatase 80 Lactate Dehydrogenase 200 191 Total Creatine Kinase 104 Troponin I High Sens C-Reactive Protein B-Natriuretic Peptide Total Protein 5.9 L Albumin 2.9 L Triglycerides 269 Cholesterol 91 LDL Cholesterol, Calc 33 HDL Cholesterol < 5 Urine Color Urine Appearance Urine pH Ur Specific [place] Urine Protein Urine Glucose (UA) Urine Ketones Urine Blood Urine Nitrite Ur Leukocyte Esterase Urine RBC Urine WBC Ur Squamous Epith Cells Triple Phos Crystals Amorphous Sediment Urine Bacteria Urine Yeast Stool Occult Blood COVID-19 (CRISTIAN) COVID-19 Clin Com Hepatitis A IgM Ab Hep Bs Antigen Hep Bs Antibody Hep B Core Total Ab Hepatitis C Ab (EIA) Influenza Type A (JUNG) Influenza Type B (JUNG) Influenza A & B Note Airway Mallampati Class: II TM Dist: >3cm Loose/Missing/Broken Teeth: Yes (Multiple missing teeth) Heart: RRR Lungs: CTA Assessment and Plan Assessment Anesthesia Assessment: Anesthesia Plan Discussed Final Anesthetic Review Family History of Problems with Anesthesia: No History of Problems with Anesthesia: No NPO: Yes ASA Class: III and Emergency Final Preanesthetic Review: No Changes in Pt Med Stat, Meds/Allgs Chart Reviewed and Consent Obtained/Reviewed Patient Risk: Intermediate Procedure Risk: Low Anesthetic Plan Anesthetic Plan: GA Disposition: Standard PACU
--- NOTE | 2021-09-09 09:33 | MHC.SHP ---
Pre-Procedural Eval Section A Date of Service: 09/09/21 The patient is an INPATIENT: Yes Changes since office visit: No Cold of Flu in the past 2 weeks, No New Medical Problems, No Changes in Medication and No Patient answered all questions The History & Physical has been completed within 30 days and I have reviewed it.: Yes Section B Chief Complaint: Sepsis, UTI, ALETHEA Details of Present Illness: cystoscopy, left retrograde, left stent placement Allergies: Allergies Allergy/AdvReac Type Severity Reaction Status Date / Time No Known Allergies Allergy Unverified 12/03/19 16:48 Plan Diagnosis/Plan: Unchanged I have reviewed the history and physical and performed a pertinent physical examination on my patient. No changes have occurred unless specified.
--- NOTE | 2021-09-09 09:34 | W.PM.OPN ---
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 Imaging showed distal left ureteric stones, small stones in bladder. Procedure: After informed consent was verified the patient was brought to the operating room and placed in a supine position. Anesthesia was administered per protocol. The patient was placed in modified dorsal lithotomy position and prepped and draped in a sterile fashion. A safety pause time-out was performed. Laterality of procedure and antibiotics were confirmed. Appropriate imaging was available A 22 [place] cystoscope was introduced per urethra. The penis particularly glans was edematous. There was phimosis and inability to retract the foreskin. 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 The bladder when entered was inflamed from the prior Barry catheter. small bladder stones was seen within the bladder. These were evacuated. The Right ureter was cannulated with an open ended catheter and a retrograde examination was performed. filling defects seen in the inferior portion. Mild hydro ureteral nephrosis noted. . A Sensor guidewire was placed under fluoroscopy and a good coil was seen within the renal pelvis. A Six [place] by 28 cm double-J stent was advanced over the wire and up to the level of the renal pelvis under fluoroscopic and direct visualization. The stent was seen with appropriate coil within the renal pelvis and in the bladder after deployment. [address] [place] [address] Barry catheter placed at completion of the procedure. The patient tolerated the procedure well and was transferred in stable condition to the recovery area. Pathology: nothing sent Drains: Barry catheter Breast [place] Node Biopsy Substrate(s) used for sentinel node biopsy in the neoadjuvant setting: Dye, Radiotracer, & Clips General Surg. - Synoptic Notes Breast [place] Node Biopsy Substrate(s) used for sentinel node biopsy in the neoadjuvant setting: Dye, Radiotracer, & Clips
[2021-09-09 11:24] LABS: B Type Natriuretic Peptide 401 pg/mL (<100)
--- NOTE | 2021-09-09 13:43 | P.CONCA_ITS ---
History of Present Illness History of Present Illness Date of Service: 09/09/21 Requesting physician: Sameer Kenyon Consult reason: myocardial infarction Chief complaint: Sepsis, UTI, ALETHEA Narrative: I was consulted to see Festus in cardiology consultation today for elevated troponin on admission. Patient was admitted to ICU with altered mental status, hypotension secondary to urosepsis and septic shock. Patient subsequently was managed with IV fluids, vasopressors. Initial troponin was noted in 2200 range but has been down trending since then. No clear episodes of chest pain. Cardiology consult was sought for further management plan. Underwent surgery this morning with removal of ureteric stone. Patient is somewhat confused right now and does not provide much history. Denies any chest pain. Currently not short of breath. Patient on admission significant lactic acidosis that also has improved. Has been diuresed because of question of heart failure. Echo done in the IC showed normal LV systolic function with impaired relaxation filling pattern with no major valvular abnormality. Elevated creatinine which has remai richard elevated. History mostly obtained from the chart. Review of Systems Review of Systems: Yes Unobtainable due to mental status Neurologic: Reports confusion Psychiatric: Psychiatric: Reports confusion [facility] Past Medical History Medical History Accelerated essential hypertension Hyperlipidemia Pulmonary embolism Social History Social History Household Members: Significant Other Housing: House Do you presently have visiting nurse or other home services: No Patient Tobacco Use Status: Never used Tobacco e-Cigarette/Vaping Use: Never Used Second Hand Smoke Exposure: No Use of substances other than those prescribed or required for medical reasons: No Currently Displaying Signs/Symptoms of Drug Intoxication Withdrawal: No Have you been hit, kicked, punched, or otherwise hurt by someone within the past year? If so, by whom?: No Do you feel safe in your current relationship?: No Is there a partner from a previous relationship who is making you feel unsafe now?: No Are you made to feel afraid or neglected: No Advance Directives: No Advance Directives Information Provided: Yes Do you have thoughts of harming others: None Do you have a plan to hurt others: No Plan Recently lost weight without trying: No Nutrition Risks: No Nutritional Risk Poor oral hygiene: No service: No Current occupational status: retired Meds Allergies Allergy/AdvReac Type Severity Reaction Status Date / Time No Known Allergies Allergy Unverified 12/03/19 16:48 Active Medications: Current Medications Acetaminophen (Acetaminophen 325 Mg Tablet) 650 mg PO Q6H PRN PRN Reason: Pain, Mild (Pain Scale 1-3) Atorvastatin Calcium (Atorvastatin Calcium 20 Mg Tablet) 20 mg PO BEDTIME [facility] Last Admin: 09/08/21 21:30 Dose: Not Given Levofloxacin (Levaquin) 250 mg in 50 mls @ 50 mls/hr IV Q24H [facility] Last Infusion: 09/08/21 16:09 Dose: Infused Omeprazole (Omeprazole 20 Mg Capsule.Dr) 20 mg PO DAILY@0630 [facility] Last Admin: 09/09/21 06:00 Dose: Not Given Ondansetron HCl (Ondansetron Hcl 4 Mg/2 Ml Vial) 4 mg IVPUSH Q8H PRN PRN Reason: Nausea Home Medications Medication Instructions Recorded Confirmed Last Taken Type lisinopril 30 mg tablet 1 tab PO DAILY 09/07/21 09/07/21 Unknown History metoprolol succinate 100 mg 1 tab PO DAILY 09/07/21 09/07/21 Unknown History tablet,extended release 24 hr rosuvastatin 10 mg tablet 1 tab PO BEDTIME 09/07/21 09/07/21 Unknown History Physical Exam Vital Signs: Vital Signs: Last Vital Signs Temp 97.6 F 09/09/21 10:32 Pulse 90 09/09/21 10:32 Resp 18 09/09/21 10:32 BP 134/76 09/09/21 10:32 Pulse Ox 97 09/09/21 10:32 O2 Del Method 09/09/21 10:32 O2 Flow Rate 2 09/09/21 10:32 Oxygen Flow Rate 5 09/07/21 01:41 BMI result Body Mass Index 26.9 Const: General: comfortable, confusion and lethargic Nutritional Appearance: average body habitus Orientation/consciousness: confusion and lethargic HEENT: Head: Yes normocephalic and Yes atraumatic Neck: Neck: Yes trachea midline, Yes supple and Yes no JVD Resp: Effort & Inspection: decreased respiratory effort Auscultation: no crackles, no rales and no wheezes Cardio: Jugular venous distension: no JVD Palpation: normal PMI Rate: regular rate Rhythm: regular rhythm Heart sounds: S1 normal heart sound present, S2 normal heart sound present, no click, no gallops and no murmurs GI: Auscultation: normal bowel sounds Skin: General skin exam: no rashes or lesions noted Neuro: General: moves all extremities and confusion Extrem: General: Yes no clubbing, cyanosis or edema Objective Labs and Meds Result diagrams: 09/09/21 07:15 09/09/21 07:15 Lab results: Laboratory Results - last 24 hr 09/09/21 09/09/21 09/09/21 07:15 07:15 07:15 WBC 12.3 H RBC 3.51 L Hgb 10.0 L Hct 31.0 L MCV 88.3 MCH 28.5 MCHC 32.3 RDW 17.2 H Plt Count 47 L MPV 11.2 Absolute Nucleated RBC 0.000 Nucleated RBC % (auto) 0.0 Sodium 144 Potassium 4.6 Chloride 112 H Carbon Dioxide 18 L Anion Gap 19 BUN 99 H Creatinine 3.48 H Estim Creat Clear Calc 16.6 Estimated GFR 17 Random Glucose 137 H D Calcium 9.0 Total Bilirubin 1.3 H Direct Bilirubin 0.6 H AST 44 H D ALT 30 Alkaline Phosphatase 80 Lactate Dehydrogenase Total Creatine Kinase B-Natriuretic Peptide 401 H Total Protein 5.9 L Albumin 2.9 L Triglycerides 269 Cholesterol 91 LDL Cholesterol, Calc 33 HDL Cholesterol < 5 09/09/21 09/09/21 07:15 07:15 WBC RBC Hgb Hct MCV MCH MCHC RDW Plt Count MPV Absolute Nucleated RBC Nucleated RBC % (auto) Sodium Potassium Chloride Carbon Dioxide Anion Gap BUN Creatinine Estim Creat Clear Calc Estimated GFR Random Glucose Calcium Total Bilirubin Direct Bilirubin AST ALT Alkaline Phosphatase Lactate Dehydrogenase 200 191 Total Creatine Kinase 104 B-Natriuretic Peptide Total Protein Albumin Triglycerides Cholesterol LDL Cholesterol, Calc HDL Cholesterol Assessment and Plan (1) NSTEMI (non-ST elevated myocardial infarction): Status: Acute Acute myocardial infarction in this elderly gentleman who present with septic shock. Secondary to noncardiac issues and not related to plaque rupture. However there is high likelihood of underlying obstructive coronary artery disease. Once better be mentally as well as medically can pursue outpatient ischemic workup. If he remains a significant memory issues, will evaluate after office visit. Continue medical management. Remained significantly thrombocytopenic. This needs to be workup. Hold on aspirin therapy. High- intensity statin therapy with target goal LDL less than 70 mg/dL. Consider adding metoprolol 25 mg b.i.d. to his regimen. No clear evidence of heart failure at this point time. Avoid sudden fluid overload. Will sign of the case and follow as outpatient. Procedures Date of Service Date of Service: 09/09/21
--- NOTE | 2021-09-09 14:30 | PM.PNNEP ---
Subjective Subjective Date of Service: 09/09/21 Interval history: Events noted. All recent data/ Urology notes reviewed Physical Exam Vital Signs: Vital Signs: Last Vital Signs Temp 97.6 F 09/09/21 10:32 Pulse 90 09/09/21 10:32 Resp 18 09/09/21 10:32 BP 134/76 09/09/21 10:32 Pulse Ox 97 09/09/21 10:32 O2 Del Method 09/09/21 10:32 O2 Flow Rate 2 09/09/21 10:32 Oxygen Flow Rate 5 09/07/21 01:41 BMI result Body Mass Index 26.9 Const: General: no acute distress Eyes: EOM: EOMs intact bilaterally Neck: Neck: Yes supple Resp: Auscultation: diminished lung sounds Cardio: Jugular venous distension: no JVD GI: Palpation (GI): Soft to palpation Neuro: General: moves all extremities Objective Data Labs CBC & Chem 7: 09/09/21 07:15 09/09/21 07:15 Labs: Laboratory Results - last 24 hr 09/09/21 09/09/21 09/09/21 07:15 07:15 07:15 WBC 12.3 H RBC 3.51 L Hgb 10.0 L Hct 31.0 L MCV 88.3 MCH 28.5 MCHC 32.3 RDW 17.2 H Plt Count 47 L MPV 11.2 Absolute Nucleated RBC 0.000 Nucleated RBC % (auto) 0.0 Sodium 144 Potassium 4.6 Chloride 112 H Carbon Dioxide 18 L Anion Gap 19 BUN 99 H Creatinine 3.48 H Estim Creat Clear Calc 16.6 Estimated GFR 17 Random Glucose 137 H D Calcium 9.0 Total Bilirubin 1.3 H Direct Bilirubin 0.6 H AST 44 H D ALT 30 Alkaline Phosphatase 80 Lactate Dehydrogenase Total Creatine Kinase B-Natriuretic Peptide 401 H Total Protein 5.9 L Albumin 2.9 L Triglycerides 269 Cholesterol 91 LDL Cholesterol, Calc 33 HDL Cholesterol < 5 09/09/21 09/09/21 07:15 07:15 WBC RBC Hgb Hct MCV MCH MCHC RDW Plt Count MPV Absolute Nucleated RBC Nucleated RBC % (auto) Sodium Potassium Chloride Carbon Dioxide Anion Gap BUN Creatinine Estim Creat Clear Calc Estimated GFR Random Glucose Calcium Total Bilirubin Direct Bilirubin AST ALT Alkaline Phosphatase Lactate Dehydrogenase 200 191 Total Creatine Kinase 104 B-Natriuretic Peptide Total Protein Albumin Triglycerides Cholesterol LDL Cholesterol, Calc HDL Cholesterol Microbiology Microbiology Results: Microbiology 09/07/21 02:24 Blood - Venous Blood Culture - Preliminary Gram negative larissa Group G streptococcus 09/07/21 02:14 Blood - Venous Blood Culture - Preliminary Gram negative larissa Group G streptococcus 09/08/21 05:41 Blood - Venous Blood Culture - Preliminary No growth after 24 hours. 09/08/21 05:40 Blood - Venous Blood Culture - Preliminary No growth after 24 hours. 09/07/21 Unknown Urine Catheterized - Barry Catheter Urine Culture - Final Procedures Date of Service Date of Service: 09/09/21 Assessment & Plan Assessment and plan (1) Acute renal failure: Status: Acute Assessment and Plan: Has CKD 3 at baseline ALETHEA due to obstruction & septic & hemodynamic ATN Had altered autoregulation in the kidney being on ACEI Urology following; Renal function better; No indication for renal renal replacement C/W rest of current supportive care for now; Shall closely F/U Time Spent With Patient Time: Total time spent is greater than 50% in coordination of care (as documented) at patient's floor/unit and/or counseling patient: Progress Note: Quality Stroke Does the patient have a stroke diagnosis?: No
[2021-09-09] MEDS: levoFLOXacin/D5W 250 MG/50 ML PIGGYBACK 50 MG IV (14:46)
[2021-09-09] MEDS: Atorvastatin Calcium 20 MG TABLET PO (22:19)
[2021-09-10 02:51] VITALS: BP 139/71; PULSE 111; RESP 17; TEMP 37.3; O2SAT 96
[2021-09-10 07:59] VITALS: BP 140/79; PULSE 97; RESP 18; TEMP 36.8; O2SAT 95
[2021-09-10] MEDS: Heparin Sodium,Porcine 5,000 UNIT/ML VIAL 5000 UNIT SUBCUT ×2 (10:08→16:48)
[2021-09-10] MEDS: Metoprolol Succinate ER 100 MG TAB.ER.24H PO (10:08)
[2021-09-10 10:49] LABS: Hematocrit 32.5 % (42.0-52.0); Hemoglobin 10.6 g/dl (14.0-18.0); Mean Corpuscular HGB Conc 32.6 g/dl (31.0-36.0); Mean Corpuscular Hemoglobin 28.9 pg (27.0-33.0); Mean Corpuscular Volume 88.6 fL (80.0-98.0); Mean Platelet Volume 10.6 fL (9.4-12.4); Red Blood Count 3.67 X10*6/uL (4.60-5.80); Red Cell Distribution Width 17.3 % (11.0-16.0); White Blood Count 8.4 X10*3/uL (4.8-10.8)
[2021-09-10 10:51] LABS: Platelet Count 64 X10*3/uL (160-400)
[2021-09-10 11:03] LABS: Alanine Aminotransferase 26 U/L (0-40); Albumin Level 2.9 g/dL (3.5-5.0); Alkaline Phosphatase 84 U/L (39-117); Anion Gap 14 (12-20); Aspartate Amino Transferase 25 U/L (5-37); Bilirubin Direct 0.6 mg/dL (0.0-0.5); Bilirubin Total 1.3 mg/dL (0.0-1.0); Blood Urea Nitrogen 91 mg/dL (9-16); Carbon Dioxide 21 mmol/L (22-29); Chloride 116 mmol/L (96-108); Creatinine Clr Calc Pharmacy 22.1; Estimated Glomerular Filt Rate 24; Glucose Random 152 mg/dL (60-115); Potassium 4.4 mmol/L (3.3-5.1); Sodium 147 mmol/L (135-145); Total Protein 6.2 g/dL (6.5-8.0)
[2021-09-10 11:23] VITALS: BP 134/75; PULSE 91; RESP 18; TEMP 36.9; O2SAT 96
--- NOTE | 2021-09-10 12:24 | PM.UROPN ---
Subjective Subjective Date of Service: 09/10/21 Interval history: Significant improvement from urosepsis Creatinine is correcting White count now normal range Patient is more oriented than he was yesterday at time of stenting Issue still remains regarding potential for penile tumor. Would plan for dorsal slit and penile biopsy. MRI scheduled Physical Exam Vital Signs: Vital Signs: Last Vital Signs Temp 98.5 F 09/10/21 11:23 Pulse 91 09/10/21 11:23 Resp 18 09/10/21 11:23 BP 134/75 09/10/21 11:23 Pulse Ox 96 09/10/21 11:23 O2 Del Method 09/10/21 11:23 O2 Flow Rate 2 09/10/21 11:23 Oxygen Flow Rate 5 09/07/21 01:41 BMI result Body Mass Index 26.9 Const: General: cooperative, healthy appearing, comfortable and no acute distress Orientation/consciousness: patient oriented x3 HEENT: Face and sinus: Yes normal facial exam Mouth: moist mucous membranes Neck: Neck: Yes normal visual inspection, Yes full ROM and Yes trachea midline Chest: Chest palpation & inspection: normal inspection of the chest Resp: Effort & Inspection: normal respiratory effort, able to speak in complete sentences and no respiratory distress GI: Inspection: Yes normal to inspection Back/Spine/Pelvis: Cervical Spine: normal cervical lordosis Thoracic/Lumbar Spine: thoracic and lumbar spine normal to inspection Skin: General skin exam: no rashes or lesions noted Neuro: General: patient oriented x3, tone normal and moves all extremities Extrem: General: Yes normal to inspection and Yes capillary refill normal Urology Results Labs CBC & Chem 7: 09/10/21 10:37 09/10/21 10:37 Labs: Laboratory Results - last 24 hr 09/10/21 09/10/21 10:37 10:37 WBC 8.4 RBC 3.67 L Hgb 10.6 L Hct 32.5 L MCV 88.6 MCH 28.9 MCHC 32.6 RDW 17.3 H Plt Count 64 L D MPV 10.6 Absolute Nucleated RBC 0.000 Nucleated RBC % (auto) 0.0 Sodium 147 H Potassium 4.4 Chloride 116 H Carbon Dioxide 21 L Anion Gap 14 BUN 91 H Creatinine 2.61 H Estim Creat Clear Calc 22.1 Estimated GFR 24 Random Glucose 152 H Calcium 9.0 Total Bilirubin 1.3 H Direct Bilirubin 0.6 H AST 25 D ALT 26 Alkaline Phosphatase 84 Total Protein 6.2 L Albumin 2.9 L Progress Note: A&P Assessment and plan (1) Sepsis: Status: Acute (2) Ureteric stone: Status: Acute Plan sepsis resolving with antibiotics supportive care Plan for dorsal slit with penile glandular biopsy tomorrow Time Spent With Patient Time: Total time spent is greater than 50% in coordination of care (as documented) at patient's floor/unit and/or counseling patient: Progress Note: Quality Stroke Does the patient have a stroke diagnosis?: No
--- NOTE | 2021-09-10 12:29 | HO.POSTANES ---
Post Anesthesia Evaluation Post Anesthesia Evaluation Vital Signs: Vital Signs Temp Pulse Resp BP Pulse Ox O2 Del Method O2 Flow Rate 09/10/21 11:23 98.5 F 91 18 134/75 96 Nasal Cannula 2 09/10/21 07:59 98.3 F 97 18 140/79 H 95 Nasal Cannula 2 09/10/21 02:51 99.2 F 111 H 17 139/71 96 Nasal Cannula 2 Anesthesia: General LMA Mental Status: Awake Pain Control: Satisfactory Nausea/Vomiting: None Hydration: Adequate Anesthesia-Related Issues: No Anes. Related Issues
--- NOTE | 2021-09-10 13:33 | HO.PM.IMPN ---
Subjective Subjective Date of Service: 09/10/21 Interval History: patient awake alert pleasantly confused, able to recognize his girlfriend at bedside, complaining of abdominal pain denies nausea vomiting, no diarrhea denies shortness of breath no chest pain, no palpitation. Review of Systems Review of Systems: Yes Unobtainable due to mental status Physical Exam Vital Signs: Vital Signs: Last Vital Signs Temp 98.5 F 09/10/21 11:23 Pulse 91 09/10/21 11:23 Resp 18 09/10/21 11:23 BP 134/75 09/10/21 11:23 Pulse Ox 96 09/10/21 11:23 O2 Del Method 09/10/21 11:23 O2 Flow Rate 2 09/10/21 11:23 Oxygen Flow Rate 5 09/07/21 01:41 BMI result Body Mass Index 26.9 Const: General: cooperative, healthy appearing, comfortable and no acute distress Orientation/consciousness: patient oriented x3 HEENT: Face and sinus: Yes normal facial exam Mouth: moist mucous membranes Neck: Neck: Yes normal visual inspection, Yes full ROM and Yes trachea midline Chest: Chest palpation & inspection: normal inspection of the chest Resp: Effort & Inspection: normal respiratory effort, able to speak in complete sentences and no respiratory distress GI: Inspection: Yes normal to inspection Back/Spine/Pelvis: Cervical Spine: normal cervical lordosis Thoracic/Lumbar Spine: thoracic and lumbar spine normal to inspection Skin: General skin exam: no rashes or lesions noted Neuro: General: patient oriented x3, tone normal and moves all extremities Extrem: General: Yes normal to inspection and Yes capillary refill normal Objective Data Active Medications Acetaminophen (Acetaminophen 325 Mg Tablet) 650 mg PO Q6H PRN PRN Reason: Pain, Mild (Pain Scale 1-3) Atorvastatin Calcium (Atorvastatin Calcium 40 Mg Tablet) 40 mg PO BEDTIME [facility] Heparin Sodium (Porcine) (Heparin Sodium,Porcine 5,000 Unit/Ml Vial) 5,000 unit SUBCUT Q8H [facility] Last Admin: 09/10/21 10:08 Dose: 5,000 unit Documented By: SUZETTE Levofloxacin (Levaquin) 250 mg in 50 mls @ 50 mls/hr IV Q24H [facility] Last Infusion: 09/09/21 16:22 Dose: 0 mls/hr Documented By: SUZETTE Dextrose (D5w) 1,000 mls @ 50 mls/hr IVCONT .Q20H [facility] Metoprolol Succinate (Metoprolol Succinate Er 100 Mg Tab.Er.24h) 100 mg PO DAILY [facility]; Protocol Last Admin: 09/10/21 10:08 Dose: 100 mg Documented By: SUZETTE Omeprazole (Omeprazole 20 Mg Capsule.Dr) 20 mg PO DAILY@0630 [facility] Last Admin: 09/10/21 06:46 Dose: Not Given Documented By: KRISTY Non-Admin Reason: sleepy Ondansetron HCl (Ondansetron Hcl 4 Mg/2 Ml Vial) 4 mg IVPUSH Q8H PRN PRN Reason: Nausea Labs CBC & Chem 7: 09/10/21 10:37 09/10/21 10:37 Labs: Laboratory Results - last 24 hr 09/10/21 09/10/21 10:37 10:37 MCV 88.6 MCH 28.9 MCHC 32.6 RDW 17.3 H Plt Count 64 L D MPV 10.6 Absolute Nucleated RBC 0.000 Nucleated RBC % (auto) 0.0 Anion Gap 14 Estim Creat Clear Calc 22.1 Estimated GFR 24 Random Glucose 152 H Calcium 9.0 Total Bilirubin 1.3 H Direct Bilirubin 0.6 H AST 25 D ALT 26 Alkaline Phosphatase 84 Total Protein 6.2 L Albumin 2.9 L Microbiology Microbiology Results: Microbiology 09/07/21 02:24 Blood Culture - Preliminary Blood - Venous Proteus vulgaris Group G streptococcus 09/07/21 02:14 Blood Culture - Preliminary Blood - Venous Gram negative larissa Group G streptococcus 09/08/21 05:41 Blood Culture - Preliminary Blood - Venous No growth after 48 hours. 09/08/21 05:40 Blood Culture - Preliminary Blood - Venous No growth after 48 hours. Assessment and Plan (1) Acute UTI: Status: Acute (2) Pneumonia: Status: Acute (3) Acute hypotension: Status: Acute (4) Acute renal failure: Status: Acute (5) Acute respiratory failure with hypoxia: Status: Acute (6) Acute encephalopathy: Status: Acute (7) Acute diastolic CHF (congestive heart failure): Status: Acute (8) Lactic acidosis: Status: Acute Plan 81-year-old gentleman with past medical history of hypertension hyperlipidemia has not seen a primary care physician in last several years but has been receiving his medications through pharmacy on metoprolol, Crestor and lisinopril was brought into [facility] by paramedics due to confusion and difficulty in urination acute septic shock due to stone obstruction/UTI/ pneumonia chest x-ray showed right middle lobe opacity/ pulmonary vascular congestion shock resolved blood cultures x2 growing Gram-negative larissa and group G Streptococcus, follow final sensitivities, urine culture mixed bacterial ana rosa levaquin obtain ID consult hyponatremia start d5w, monitor acute encephalopathy resolving likely due to acute infection as per girlfriend noted to be confused for last 1 month got worsened in last 1 week no prior history of underlying dementia has not seen a physician in several years treat infection follow clinical course acute hypoxic respiratory failure resolved likely due to pneumonia/CHF acute renal failure likely due to infection/pre renal /obstructive uropathy with calculi, left UVJ stone with mild left hydronephrosis scheduled for cystoscopy by Urology, obtain renal consult, hold lisinopril and nephrotoxins follow BMP acute diastolic congestive heart failure due to IV fluid, underlying ischemia echo showed EF 55-60% impaired relaxation, s/p IV diuretic,- 4 liters appears euvoulmic, follow BMP, BNP, clinical course and obtain Cardio eval elevated troponin troponin trending down, patient denies chest pain echo as above, EKG showed T-wave inversion inferior lateral lead will obtain repeat EKG, not a candidate for aggressive treatment since noted to have hematuria resume statins and beta-joey elevated LFTs likely secondary to sepsis,hepatitis serology nonreactive thrombocytopenia question secondary to sepsis,monitor hematuria resolving question related to UVJ stone and UTI,clamp cbi follow cbc DVT prophylaxis with compression boots due to hematuria will avoid anticoagulant. patient will need continued inpatient hospitalization due to Gram-negative/Gram-positive bacteremia requiring IV antibiotics, acute renal failure, hematuria on cbi, and acute diastolic congestive heart failure requiring IV Lasix. Quality Stroke Does the patient have a stroke diagnosis?: No VTE Prior VTE?: Yes VTE Risk Level:: Medical - moderate - high VTE Device Contraindication: N/A - Device Ordered VTE Drug Contraindication: N/A - Med Ordered
--- NOTE | 2021-09-10 13:56 | PM.PNNEP ---
Subjective Subjective Date of Service: 09/10/21 Interval history: patient awake alert but pleasantly confused Physical Exam Vital Signs: Vital Signs: Last Vital Signs Temp 98.5 F 09/10/21 11:23 Pulse 91 09/10/21 11:23 Resp 18 09/10/21 11:23 BP 134/75 09/10/21 11:23 Pulse Ox 96 09/10/21 11:23 O2 Del Method 09/10/21 11:23 O2 Flow Rate 2 09/10/21 11:23 Oxygen Flow Rate 5 09/07/21 01:41 BMI result Body Mass Index 26.9 Const: General: no acute distress Eyes: EOM: EOMs intact bilaterally Neck: Neck: Yes supple Resp: Auscultation: diminished lung sounds Cardio: Rate: regular rate GI: Palpation (GI): Soft to palpation Neuro: General: moves all extremities Objective Data Labs CBC & Chem 7: 09/10/21 10:37 09/10/21 10:37 Labs: Laboratory Results - last 24 hr 09/10/21 09/10/21 10:37 10:37 WBC 8.4 RBC 3.67 L Hgb 10.6 L Hct 32.5 L MCV 88.6 MCH 28.9 MCHC 32.6 RDW 17.3 H Plt Count 64 L D MPV 10.6 Absolute Nucleated RBC 0.000 Nucleated RBC % (auto) 0.0 Sodium 147 H Potassium 4.4 Chloride 116 H Carbon Dioxide 21 L Anion Gap 14 BUN 91 H Creatinine 2.61 H Estim Creat Clear Calc 22.1 Estimated GFR 24 Random Glucose 152 H Calcium 9.0 Total Bilirubin 1.3 H Direct Bilirubin 0.6 H AST 25 D ALT 26 Alkaline Phosphatase 84 Total Protein 6.2 L Albumin 2.9 L Microbiology Microbiology Results: Microbiology 09/07/21 02:24 Blood - Venous Blood Culture - Preliminary Proteus vulgaris Group G streptococcus 09/07/21 02:14 Blood - Venous Blood Culture - Preliminary Gram negative larissa Group G streptococcus 09/08/21 05:41 Blood - Venous Blood Culture - Preliminary No growth after 48 hours. 09/08/21 05:40 Blood - Venous Blood Culture - Preliminary No growth after 48 hours. 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
[2021-09-10] MEDS: levoFLOXacin/D5W 250 MG/50 ML PIGGYBACK 50 MG IV (14:24)
[2021-09-10] MEDS: Dextrose 5 % 1,000 ML 50 ML IVCONT (14:24)
[2021-09-10 15:03] VITALS: BP 127/62; PULSE 89; RESP 17; TEMP 37; O2SAT 92
[2021-09-10 19:03] VITALS: BP 127/76; PULSE 90; RESP 17; TEMP 37.2; O2SAT 94
[2021-09-10 20:00] VITALS: BP 105/57; PULSE 60; RESP 18; TEMP 37.4; O2SAT 95
[2021-09-10] MEDS: Atorvastatin Calcium 40 MG TABLET PO (20:31)
[2021-09-11] VITALS (11 sets, daily range): BP systolic 103–151; BP diastolic 54–74; PULSE 83–98; RESP 16–20; TEMP 36.8–37.7; O2SAT 95–99; BMI 26.9
[2021-09-11 07:34] LABS: Hematocrit 33.7 % (42.0-52.0); Hemoglobin 10.7 g/dl (14.0-18.0); Mean Corpuscular HGB Conc 31.8 g/dl (31.0-36.0); Mean Corpuscular Hemoglobin 28.3 pg (27.0-33.0); Mean Corpuscular Volume 89.2 fL (80.0-98.0); Mean Platelet Volume 10.9 fL (9.4-12.4); Red Blood Count 3.78 X10*6/uL (4.60-5.80); Red Cell Distribution Width 17.6 % (11.0-16.0); White Blood Count 8.5 X10*3/uL (4.8-10.8)
[2021-09-11 07:38] LABS: Platelet Count 88 X10*3/uL (160-400)
[2021-09-11 07:53] LABS: Anion Gap 11 (12-20); Blood Urea Nitrogen 81 mg/dL (9-16); Carbon Dioxide 25 mmol/L (22-29); Chloride 118 mmol/L (96-108); Creatinine Clr Calc Pharmacy 26.8; Estimated Glomerular Filt Rate 29; Glucose Fasting 164 mg/dL (60-99); Potassium 4.1 mmol/L (3.3-5.1); Sodium 150 mmol/L (135-145)
[2021-09-11] MEDS: Metoprolol Succinate ER 100 MG TAB.ER.24H PO (09:41)
[2021-09-11] MEDS: Dextrose 5 % 1,000 ML 50 ML IVCONT ×3 (09:42→21:45)
--- NOTE | 2021-09-11 12:01 | MHC.CM.PN ---
Per ROUNDS discussion, Patient is not yet medically cleared for dc. Plan is for STR that could turn into LTC. CM met with [facility] Worker/Myesha @ [phone] Ext. [phone], who must be informed of final dc plan. Per Myesha, A community member filed an Elder @ Risk r/t Patient's partner, ADL's not being met properly, ? need for condemnation of Patient's home (feces, clutter, concern for collapse). CM will follow.
--- NOTE | 2021-09-11 12:17 | P.PNIM_ITS ---
Subjective Subjective Date of Service: 09/11/21 Interval History: patient awake alert pleasantly confused, able to recognize his girlfriend at bedside, complaining of abdominal pain denies nausea vomiting, no diarrhea denies shortness of breath no chest pain, no palpitation. Review of Systems Review of Systems: Yes Unobtainable due to mental status Physical Exam Vital Signs: Vital Signs: Last Vital Signs Temp 99.6 F 09/11/21 08:00 Pulse 85 09/11/21 08:00 Resp 20 09/11/21 08:00 BP 137/69 09/11/21 08:00 Pulse Ox 96 09/11/21 08:00 O2 Del Method 09/11/21 08:00 O2 Flow Rate 2 09/11/21 08:00 Oxygen Flow Rate 5 09/07/21 01:41 BMI result Body Mass Index 26.9 General: lethargic, ill appearing Resp: diminished bilateral, no accessory muscles used CVS: S1,S2,RRR GI: soft, non tender, non distended Neuro: motor grossly intact, lethargic Psych: appropriate affect, imapired insight Objective Data Active Medications Acetaminophen (Acetaminophen 325 Mg Tablet) 650 mg PO Q6H PRN PRN Reason: Pain, Mild (Pain Scale 1-3) Atorvastatin Calcium (Atorvastatin Calcium 40 Mg Tablet) 40 mg PO BEDTIME [facility] Last Admin: 09/10/21 20:31 Dose: 40 mg Documented By: KRISTY Heparin Sodium (Porcine) (Heparin Sodium,Porcine 5,000 Unit/Ml Vial) 5,000 unit SUBCUT Q8H [facility] Last Admin: 09/11/21 09:40 Dose: Not Given Documented By: SUZETTE Non-Admin Reason: surgical procedure Levofloxacin (Levaquin) 250 mg in 50 mls @ 50 mls/hr IV Q24H [facility] Last Infusion: 09/10/21 17:20 Dose: 0 mls/hr Documented By: SUZETTE Dextrose (D5w) 1,000 mls @ 50 mls/hr IVCONT .Q20H [facility] Last Admin: 09/11/21 09:42 Dose: 50 mls/hr Documented By: SUZETTE Metoprolol Succinate (Metoprolol Succinate Er 100 Mg Tab.Er.24h) 100 mg PO DAILY [facility]; Protocol Last Admin: 09/11/21 09:41 Dose: 100 mg Documented By: SUZETTE Omeprazole (Omeprazole 20 Mg Capsule.) 20 mg PO DAILY@0630 [facility] Last Admin: 09/11/21 05:13 Dose: Not Given Documented By: KRISTY Non-Admin Reason: NPO Ondansetron HCl (Ondansetron Hcl 4 Mg/2 Ml Vial) 4 mg IVPUSH Q8H PRN PRN Reason: Nausea Labs CBC & Chem 7: 09/11/21 06:22 09/11/21 06:22 Labs: Laboratory Results - last 24 hr 09/11/21 09/11/21 06:22 06:22 MCV 89.2 MCH 28.3 MCHC 31.8 RDW 17.6 H Plt Count 88 L D MPV 10.9 Absolute Nucleated RBC 0.000 Nucleated RBC % (auto) 0.0 Anion Gap 11 L Estim Creat Clear Calc 26.8 Estimated GFR 29 Fasting Glucose 164 H D Calcium 9.0 Microbiology Microbiology Results: Microbiology 09/07/21 02:24 Blood Culture - Preliminary Blood - Venous Proteus vulgaris Group G streptococcus 09/07/21 02:14 Blood Culture - Final Blood - Venous Morganella morganii ssp derick Group G streptococcus Assessment and Plan (1) Acute UTI: Status: Acute (2) Pneumonia: Status: Acute (3) Acute hypotension: Status: Acute (4) Acute renal failure: Status: Acute (5) Acute respiratory failure with hypoxia: Status: Acute (6) Acute encephalopathy: Status: Acute (7) Acute diastolic CHF (congestive heart failure): Status: Acute (8) Lactic acidosis: Status: Acute Plan 81-year-old gentleman with past medical history of hypertension hyperlipidemia has not seen a primary care physician in last several years but has been receiving his medications through pharmacy on metoprolol, Crestor and lisinopril was brought into [facility] by paramedics due to confusion and difficulty in urination acute septic shock due to stone obstruction/UTI/ pneumonia chest x-ray showed right middle lobe opacity/ pulmonary vascular congestion shock resolved blood cultures x2 growing Gram-negative larissa and group G Streptococcus, follow final sensitivities, urine culture mixed bacterial ana rosa levaquin ID consult concern for penile cancer, mri pelvis today following hyponatremia increase d5w to 100cc/hr, monitor acute encephalopathy resolving likely due to acute infection as per girlfriend noted to be confused for last 1 month got worsened in last 1 week no prior history of underlying dementia has not seen a physician in several years treat infection follow clinical course acute hypoxic respiratory failure resolved likely due to pneumonia/CHF acute renal failure likely due to infection/pre renal /obstructive uropathy with calculi, left UVJ stone with mild left hydronephrosis scheduled for cystoscopy by Urology, obtain renal consult, hold lisinopril and nephrotoxins follow BMP acute diastolic congestive heart failure due to IV fluid, underlying ischemia echo showed EF 55-60% impaired relaxation, s/p IV diuretic,- 4 liters appears euvoulmic, follow BMP, BNP, clinical course and obtain Cardio eval elevated troponin troponin trending down, patient denies chest pain echo as above, EKG showed T- wave inversion inferior lateral lead will obtain repeat EKG, not a candidate for aggressive treatment since noted to have hematuria resume statins and beta-joey elevated LFTs likely secondary to sepsis,hepatitis serology nonreactive thrombocytopenia question secondary to sepsis,monitor hematuria resolving question related to UVJ stone and UTI,clamp cbi follow cbc DVT prophylaxis with compression boots due to hematuria will avoid anticoagulant. patient will need continued inpatient hospitalization due to G alcira-negative/Gram-positive bacteremia requiring IV antibiotics, acute renal failure, Quality Stroke Does the patient have a stroke diagnosis?: No VTE Prior VTE?: Yes VTE Risk Level:: Medical - moderate - high VTE Device Contraindication: N/A - Device Ordered VTE Drug Contraindication: N/A - Med Ordered
[2021-09-11 14:39] LABS: Sodium 149 mmol/L (135-145)
[2021-09-11 14:46] LABS: Myeloperoxidase Antibody <1.0 AI; Proteinase 3 PR3 Antibodies <1.0 AI
[2021-09-11] MEDS: levoFLOXacin/D5W 250 MG/50 ML PIGGYBACK 50 MG IV (14:50)
--- NOTE | 2021-09-11 14:50 | P.CONAN_ITS ---
Documented by User: Ivonne Landa MD 09/11/21 15:40 [facility] Active Problems Active Problems: All Active Problems (Updated 09/10/21 @ 12:25 by Jordan Meeks MD) Sepsis (Acute) NSTEMI (non-ST elevated myocardial infarction) (Acute) Ureteric stone (Acute) Hydronephrosis (Acute) Lactic acidosis (Acute) Acute diastolic CHF (congestive heart failure) (Acute) Acute encephalopathy (Acute) Acute respiratory failure with hypoxia (Acute) Acute renal failure (Acute) Acute UTI (Acute) Pneumonia (Acute) Acute hypotension (Acute) Past Medical History Medical History Accelerated essential hypertension Hyperlipidemia Pulmonary embolism Family History Family history of problems with anesthesia: No Surgical History History of Problems with Anesthesia: No Social History Social History Household Members: Significant Other Housing: House Do you presently have visiting nurse or other home services: No Patient Tobacco Use Status: Never used Tobacco e-Cigarette/Vaping Use: Never Used Second Hand Smoke Exposure: No Use of substances other than those prescribed or required for medical reasons: No Currently Displaying Signs/Symptoms of Drug Intoxication Withdrawal: No Have you been hit, kicked, punched, or otherwise hurt by someone within the past year? If so, by whom?: No Do you feel safe in your current relationship?: No Is there a partner from a previous relationship who is making you feel unsafe now?: No Are you made to feel afraid or neglected: No Advance Directives: No Advance Directives Information Provided: Yes Do you have thoughts of harming others: None Do you have a plan to hurt others: No Plan Recently lost weight without trying: No Nutrition Risks: No Nutritional Risk Poor oral hygiene: No service: No Current occupational status: retired Meds Allergies Allergy/AdvReac Type Severity Reaction Status Date / Time No Known Allergies Allergy Unverified 12/03/19 16:48 Active Medications: Current Medications Acetaminophen (Acetaminophen 325 Mg Tablet) 650 mg PO Q6H PRN PRN Reason: Pain, Mild (Pain Scale 1-3) Atorvastatin Calcium (Atorvastatin Calcium 40 Mg Tablet) 40 mg PO BEDTIME MIKKI Last Admin: 09/10/21 20:31 Dose: 40 mg Heparin Sodium (Porcine) (Heparin Sodium,Porcine 5,000 Unit/Ml Vial) 5,000 unit SUBCUT Q8H [facility] Last Admin: 09/11/21 09:40 Dose: Not Given Levofloxacin (Levaquin) 250 mg in 50 mls @ 50 mls/hr IV Q24H [facility] Last Admin: 09/11/21 14:50 Dose: 50 mls/hr Dextrose (D5w) 1,000 mls @ 100 mls/hr IVCONT .Q10H [facility] Last Admin: 09/11/21 09:42 Dose: 50 mls/hr Metoprolol Succinate (Metoprolol Succinate Er 100 Mg Tab.Er.24h) 100 mg PO DAILY [facility]; Protocol Last Admin: 09/11/21 09:41 Dose: 100 mg Omeprazole (Omeprazole 20 Mg Capsule.Dr) 20 mg PO DAILY@0630 [facility] Last Admin: 09/11/21 05:13 Dose: Not Given Ondansetron HCl (Ondansetron Hcl 4 Mg/2 Ml Vial) 4 mg IVPUSH Q8H PRN PRN Reason: Nausea Home Medications Medication Instructions Recorded Confirmed Last Taken Type lisinopril 30 mg tablet 1 tab PO DAILY 09/07/21 09/07/21 Unknown History metoprolol succinate 100 mg 1 tab PO DAILY 09/07/21 09/07/21 Unknown History tablet,extended release 24 hr rosuvastatin 10 mg tablet 1 tab PO BEDTIME 09/07/21 09/07/21 Unknown History Exam Exam Date and Time: September 11, 2021 1450 Height,Weight and Vital Signs: Height 5 ft 9 in Weight 82.6 kg Last Vital Signs Temp 99.6 F 09/11/21 08:00 Pulse 85 09/11/21 08:00 Resp 20 09/11/21 08:00 BP 137/69 09/11/21 08:00 Pulse Ox 96 09/11/21 08:00 O2 Del Method 09/11/21 08:00 O2 Flow Rate 2 09/11/21 08:00 Oxygen Flow Rate 5 09/07/21 01:41 Pertinent Lab Results Pertinent Lab Results: Laboratory Tests 09/07/21 09/07/21 09/07/21 01:48 01:48 01:48 WBC 24.7 H RBC 4.16 L Hgb 12.1 L Hct 37.0 L MCV 88.9 MCH 29.1 MCHC 32.7 RDW 16.4 H Plt Count 89 L MPV 10.6 Immature Gran % (Auto) Cancelled Neut % (Auto) Cancelled Lymph % (Auto) Cancelled [place] % (Auto) Cancelled Eos % (Auto) Cancelled Baso % (Auto) Cancelled Lymph # (Auto) Cancelled [place] # (Auto) Cancelled Eos # (Auto) Cancelled Baso # (Auto) Cancelled Abs Immat Gran (auto) Cancelled Absolute Neuts (auto) Cancelled Absolute Nucleated RBC 0.000 Nucleated RBC % (auto) 0.0 Neutrophils % (Manual) 50 Band Neutrophils % 38 H Lymphocytes % (Manual) 4 L Monocytes % (Manual) 5 Metamyelocytes % 3 Abs Neuts (Manual) 21.7 H Lymphocytes # (Manual) 1.0 L Monocytes # (Manual) 1.2 Metamyelocytes # 0.7 Toxic Vacuolation PRESENT Dohle Bodies PRESENT Platelet Estimate DECREASED Large Platelets PRESENT Plt Morphology Comment NORMAL RBC Morphology NOTED Polychromasia Macrocytosis 1+ (5-14) Pruden Cells 1+ (0-2) PT INR APTT VBG pH VBG pCO2 VBG pO2 VBG HCO3 VBG O2 Saturation VBG Base Excess Sodium 136 Potassium 4.7 Chloride 101 Carbon Dioxide 17 L Anion Gap 23 H BUN 62 H Creatinine 4.16 H* Estim Creat Clear Calc 6.9 Estimated GFR 14 Random Glucose Fasting Glucose 68 Lactic Acid 7.7 H* Lactic Acid F/U @ 2Hr Lactic Acid F/U @ 4Hr Calcium 9.5 Phosphorus 2.2 L Magnesium 1.8 Total Bilirubin 2.3 H Direct Bilirubin 1.1 H AST 74 H ALT 17 Alkaline Phosphatase 169 H Lactate Dehydrogenase Total Creatine Kinase Troponin I High Sens C-Reactive Protein B-Natriuretic Peptide Total Protein 6.5 Albumin 3.1 L Triglycerides Cholesterol LDL Cholesterol, Calc HDL Cholesterol Urine Color Urine Appearance Urine pH Ur Specific [place] Urine Protein Urine Glucose (UA) Urine Ketones Urine Blood Urine Nitrite Ur Leukocyte Esterase Urine RBC Urine WBC Ur Squamous Epith Cells Triple Phos Crystals Amorphous Sediment Urine Bacteria Urine Yeast Stool Occult Blood Proteinase 3 (PR3) Ab Myeloperoxidase Ab COVID-19 (CRISTIAN) COVID-19 Clin Com Hepatitis A IgM Ab Hep Bs Antigen Hep Bs Antibody Hep B Core Total Ab Hepatitis C Ab (EIA) Influenza Type A (JUNG) Influenza Type B (JUNG) Influenza A & B Note 09/07/21 09/07/2109/07/22 01:48 01:48 02:09 WBC RBC Hgb Hct MCV MCH MCHC RDW Plt Count MPV Immature Gran % (Auto) Neut % (Auto) Lymph % (Auto) [place] % (Auto) Eos % (Auto) Baso % (Auto) Lymph # (Auto) [place] # (Auto) Eos # (Auto) Baso # (Auto) Abs Immat Gran (auto) Absolute Neuts (auto) Absolute Nucleated RBC Nucleated RBC % (auto) Neutrophils % (Manual) Band Neutrophils % Lymphocytes % (Manual) Monocytes % (Manual) Metamyelocytes % Abs Neuts (Manual) Lymphocytes # (Manual) Monocytes # (Manual) Metamyelocytes # Toxic Vacuolation Dohle Bodies Platelet Estimate Large Platelets Plt Morphology Comment RBC Morphology Polychromasia Macrocytosis Rosalva Cells PT INR APTT VBG pH VBG pCO2 VBG pO2 VBG HCO3 VBG O2 Saturation VBG Base Excess Sodium Potassium Chloride Carbon Dioxide Anion Gap BUN Creatinine Estim Creat Clear Calc Estimated GFR Random Glucose Fasting Glucose Lactic Acid Lactic Acid F/U @ 2Hr Lactic Acid F/U @ 4Hr Calcium Phosphorus Magnesium Total Bilirubin Direct Bilirubin AST ALT Alkaline Phosphatase Lactate Dehydrogenase Total Creatine Kinase Troponin I High Sens 2236.7 H* C-Reactive Protein B-Natriuretic Peptide 777 H Total Protein Albumin Triglycerides Cholesterol LDL Cholesterol, Calc HDL Cholesterol Urine Color Urine Appearance Urine pH Ur Specific [place] Urine Protein Urine Glucose (UA) Urine Ketones Urine Blood Urine Nitrite Ur Leukocyte Esterase Urine RBC Urine WBC Ur Squamous Epith Cells Triple Phos Crystals Amorphous Sediment Urine Bacteria Urine Yeast Stool Occult Blood Proteinase 3 (PR3) Ab Myeloperoxidase Ab COVID-19 (CRISTIAN) Negative COVID-19 Clin Com See Note Hepatitis A IgM Ab Hep Bs Antigen Hep Bs Antibody Hep B Core Total Ab Hepatitis C Ab (EIA) Influenza Type A (JUNG) Negative Influenza Type B (JUNG) Negative Influenza A & B Note See Note 09/07/21 09/07/21 09/07/21 02:34 04:27 04:27 WBC RBC Hgb Hct MCV MCH MCHC RDW Plt Count MPV Immature Gran % (Auto) Neut % (Auto) Lymph % (Auto) [place] % (Auto) Eos % (Auto) Baso % (Auto) Lymph # (Auto) [place] # (Auto) Eos # (Auto) Baso # (Auto) Abs Immat Gran (auto) Absolute Neuts (auto) Absolute Nucleated RBC Nucleated RBC % (auto) Neutrophils % (Manual) Band Neutrophils % Lymphocytes % (Manual) Monocytes % (Manual) Metamyelocytes % Abs Neuts (Manual) Lymphocytes # (Manual) Monocytes # (Manual) Metamyelocytes # Toxic Vacuolation Dohle Bodies Platelet Estimate Large Platelets Plt Morphology Comment RBC Morphology Polychromasia Macrocytosis Rosalva Cells PT INR APTT VBG pH VBG pCO2 VBG pO2 VBG HCO3 VBG O2 Saturation VBG Base Excess Sodium Potassium Chloride Carbon Dioxide Anion Gap BUN Creatinine Estim Creat Clear Calc Estimated GFR Random Glucose Fasting Glucose Lactic Acid Lactic Acid F/U @ 2Hr 3.8 H* Lactic Acid F/U @ 4Hr Calcium Phosphorus Magnesium Total Bilirubin Direct Bilirubin AST ALT Alkaline Phosphatase Lactate Dehydrogenase Total Creatine Kinase Troponin I High Sens 1663.0 H* C-Reactive Protein B-Natriuretic Peptide Total Protein Albumin Triglycerides Cholesterol LDL Cholesterol, Calc HDL Cholesterol Urine Color BROWN A Urine Appearance TURBID Urine pH 8.0 Ur Specific [place] 1.015 Urine Protein 3+ H Urine Glucose (UA) 100 H Urine Ketones 15 Urine Blood 3+ H Urine Nitrite POS H Ur Leukocyte Esterase 3+ H Urine RBC TNTC H Urine WBC 50-75 H Ur Squamous Epith Cells TRACE Triple Phos Crystals 2+ Amorphous Sediment 3+ Urine Bacteria 4+ Urine Yeast TRACE Stool Occult Blood Proteinase 3 (PR3) Ab Myeloperoxidase Ab COVID-19 (CRISTIAN) COVID-19 Clin Com Hepatitis A IgM Ab Hep Bs Antigen Hep Bs Antibody Hep B Core Total Ab Hepatitis C Ab (EIA) Influenza Type A (JUNG) Influenza Type B (JUNG) Influenza A & B Note 09/07/21 09/07/21 09/07/21 04:32 05:44 05:45 WBC 23.3 H RBC 3.51 L Hgb 10.3 L Hct 31.4 L MCV 89.5 MCH 29.3 MCHC 32.8 RDW 16.6 H Plt Count 64 L D MPV 10.0 Immature Gran % (Auto) Cancelled Neut % (Auto) Cancelled Lymph % (Auto) Cancelled [place] % (Auto) Cancelled Eos % (Auto) Cancelled Baso % (Auto) Cancelled Lymph # (Auto) Cancelled [place] # (Auto) Cancelled Eos # (Auto) Cancelled Baso # (Auto) Cancelled Abs Immat Gran (auto) Cancelled Absolute Neuts (auto) Cancelled Absolute Nucleated RBC 0.000 Nucleated RBC % (auto) 0.0 Neutrophils % (Manual) 54 Band Neutrophils % 35 H Lymphocytes % (Manual) 3 L Monocytes % (Manual) 4 Metamyelocytes % 4 Abs Neuts (Manual) 20.7 H Lymphocytes # (Manual) 0.7 L Monocytes # (Manual) 0.9 Metamyelocytes # 0.9 Toxic Vacuolation PRESENT Dohle Bodies PRESENT Platelet Estimate DECREASED Large Platelets PRESENT Plt Morphology Comment NORMAL RBC Morphology NOTED Polychromasia Macrocytosis 1+ (5-14) Rosalva Cells 1+ (0-2) PT INR APTT VBG pH 7.34 VBG pCO2 29 VBG pO2 58 VBG HCO3 16 L VBG O2 Saturation 83.0 VBG Base Excess -8.3 Sodium Potassium Chloride Carbon Dioxide Anion Gap BUN Creatinine Estim Creat Clear Calc Estimated GFR Random Glucose Fasting Glucose Lactic Acid Lactic Acid F/U @ 2Hr Lactic Acid F/U @ 4Hr Calcium Phosphorus Magnesium Total Bilirubin Direct Bilirubin AST ALT Alkaline Phosphatase Lactate Dehydrogenase Total Creatine Kinase Troponin I High Sens 1502.4 H* C-Reactive Protein B-Natriuretic Peptide Total Protein Albumin Triglycerides Cholesterol LDL Cholesterol, Calc HDL Cholesterol Urine Color Urine Appearance Urine pH Ur Specific [place] Urine Protein Urine Glucose (UA) Urine Ketones Urine Blood Urine Nitrite Ur Leukocyte Esterase Urine RBC Urine WBC Ur Squamous Epith Cells Triple Phos Crystals Amorphous Sediment Urine Bacteria Urine Yeast Stool Occult Blood Proteinase 3 (PR3) Ab Myeloperoxidase Ab COVID-19 (CRISTIAN) COVID-19 Clin Com Hepatitis A IgM Ab Hep Bs Antigen Hep Bs Antibody Hep B Core Total Ab Hepatitis C Ab (EIA) Influenza Type A (JUNG) Influenza Type B (JUNG) Influenza A & B Note 09/07/21 09/07/21 09/07/21 05:45 07:25 07:25 WBC RBC Hgb Hct MCV MCH MCHC RDW Plt Count MPV Immature Gran % (Auto) Neut % (Auto) Lymph % (Auto) [place] % (Auto) Eos % (Auto) Baso % (Auto) Lymph # (Auto) [place] # (Auto) Eos # (Auto) Baso # (Auto) Abs Immat Gran (auto) Absolute Neuts (auto) Absolute Nucleated RBC Nucleated RBC % (auto) Neutrophils % (Manual) Band Neutrophils % Lymphocytes % (Manual) Monocytes % (Manual) Metamyelocytes % Abs Neuts (Manual) Lymphocytes # (Manual) Monocytes # (Manual) Metamyelocytes # Toxic Vacuolation Dohle Bodies Platelet Estimate Large Platelets Plt Morphology Comment RBC Morphology Polychromasia Macrocytosis Pruden Cells PT Cancelled 18.6 H INR Cancelled 1.6 H APTT 35.2 VBG pH VBG pCO2 VBG pO2 VBG HCO3 VBG O2 Saturation VBG Base Excess Sodium 139 Potassium 4.6 Chloride 109 H Carbon Dioxide 14 L Anion Gap 21 H BUN 62 H Creatinine 3.84 H Estim Creat Clear Calc 7.5 Estimated GFR 15 Random Glucose 74 Fasting Glucose Lactic Acid Lactic Acid F/U @ 2Hr Lactic Acid F/U @ 4Hr Calcium 8.9 D Phosphorus 3.4 Magnesium Total Bilirubin 2.4 H Direct Bilirubin AST 96 H ALT 20 Alkaline Phosphatase 97 D Lactate Dehydrogenase Total Creatine Kinase Troponin I High Sens C-Reactive Protein 19.50 H B-Natriuretic Peptide Total Protein 6.0 L Albumin 3.2 L Triglycerides Cholesterol LDL Cholesterol, Calc HDL Cholesterol Urine Color Urine Appearance Urine pH Ur Specific [place] Urine Protein Urine Glucose (UA) Urine Ketones Urine Blood Urine Nitrite Ur Leukocyte Esterase Urine RBC Urine WBC Ur Squamous Epith Cells Triple Phos Crystals Amorphous Sediment Urine Bacteria Urine Yeast Stool Occult Blood Proteinase 3 (PR3) Ab Myeloperoxidase Ab COVID-19 (CRISTIAN) COVID-19 Clin Com Hepatitis A IgM Ab Hep Bs Antigen Hep Bs Antibody Hep B Core Total Ab Hepatitis C Ab (EIA) Influenza Type A (JUNG) Influenza Type B (JUNG) Influenza A & B Note 09/07/21 09/07/21 09/07/21 07:25 17:17 17:17 WBC RBC Hgb Hct MCV MCH MCHC RDW Plt Count MPV Immature Gran % (Auto) Neut % (Auto) Lymph % (Auto) [place] % (Auto) Eos % (Auto) Baso % (Auto) Lymph # (Auto) [place] # (Auto) Eos # (Auto) Baso # (Auto) Abs Immat Gran (auto) Absolute Neuts (auto) Absolute Nucleated RBC Nucleated RBC % (auto) Neutrophils % (Manual) Band Neutrophils % Lymphocytes % (Manual) Monocytes % (Manual) Metamyelocytes % Abs Neuts (Manual) Lymphocytes # (Manual) Monocytes # (Manual) Metamyelocytes # Toxic Vacuolation Dohle Bodies Platelet Estimate Large Platelets Plt Morphology Comment RBC Morphology Polychromasia Macrocytosis Rosalva Cells PT INR APTT VBG pH VBG pCO2 VBG pO2 VBG HCO3 VBG O2 Saturation VBG Base Excess Sodium 138 Potassium 5.0 Chloride 108 Carbon Dioxide 16 L Anion Gap 19 BUN 74 H Creatinine 4.03 H* Estim Creat Clear Calc 14.3 Estimated GFR 14 Random Glucose 86 Fasting Glucose Lactic Acid 1.6 Lactic Acid F/U @ 2Hr Lactic Acid F/U @ 4Hr 2.9 H* Calcium 8.7 Phosphorus Magnesium Total Bilirubin Direct Bilirubin AST ALT Alkaline Phosphatase Lactate Dehydrogenase Total Creatine Kinase Troponin I High Sens C-Reactive Protein B-Natriuretic Peptide Total Protein Albumin Triglycerides Cholesterol LDL Cholesterol, Calc HDL Cholesterol Urine Color Urine Appearance Urine pH Ur Specific [place] Urine Protein Urine Glucose (UA) Urine Ketones Urine Blood Urine Nitrite Ur Leukocyte Esterase Urine RBC Urine WBC Ur Squamous Epith Cells Triple Phos Crystals Amorphous Sediment Urine Bacteria Urine Yeast Stool Occult Blood Proteinase 3 (PR3) Ab Myeloperoxidase Ab COVID-19 (CRISTIAN) COVID-19 Clin Com Hepatitis A IgM Ab Hep Bs Antigen Hep Bs Antibody Hep B Core Total Ab Hepatitis C Ab (EIA) Influenza Type A (JUNG) Influenza Type B (JUNG) Influenza A & B Note 09/07/21 09/07/21 09/07/21 17:17 17:17 21:05 WBC RBC Hgb Hct MCV MCH MCHC RDW Plt Count MPV Immature Gran % (Auto) Neut % (Auto) Lymph % (Auto) [place] % (Auto) Eos % (Auto) Baso % (Auto) Lymph # (Auto) [place] # (Auto) Eos # (Auto) Baso # (Auto) Abs Immat Gran (auto) Absolute Neuts (auto) Absolute Nucleated RBC Nucleated RBC % (auto) Neutrophils % (Manual) Band Neutrophils % Lymphocytes % (Manual) Monocytes % (Manual) Metamyelocytes % Abs Neuts (Manual) Lymphocytes # (Manual) Monocytes # (Manual) Metamyelocytes # Toxic Vacuolation Dohle Bodies Platelet Estimate Large Platelets Plt Morphology Comment RBC Morphology Polychromasia Macrocytosis Rosalva Cells PT INR APTT VBG pH VBG pCO2 VBG pO2 VBG HCO3 VBG O2 Saturation VBG Base Excess Sodium Potassium Chloride Carbon Dioxide Anion Gap BUN Creatinine Estim Creat Clear Calc Estimated GFR Random Glucose Fasting Glucose Lactic Acid Lactic Acid F/U @ 2Hr Lactic Acid F/U @ 4Hr Calcium Phosphorus Magnesium Total Bilirubin Direct Bilirubin AST ALT Alkaline Phosphatase Lactate Dehydrogenase Total Creatine Kinase Troponin I High Sens C-Reactive Protein B-Natriuretic Peptide 2355 H Total Protein Albumin Triglycerides Cholesterol LDL Cholesterol, Calc HDL Cholesterol Urine Color Urine Appearance Urine pH Ur Specific [place] Urine Protein Urine Glucose (UA) Urine Ketones Urine Blood Urine Nitrite Ur Leukocyte Esterase Urine RBC Urine WBC Ur Squamous Epith Cells Triple Phos Crystals Amorphous Sediment Urine Bacteria Urine Yeast Stool Occult Blood POSITIVE Proteinase 3 (PR3) Ab Myeloperoxidase Ab COVID-19 (CRISTIAN) COVID-19 Clin Com Hepatitis A IgM Ab Nonreactive Hep Bs Antigen Negative Hep Bs Antibody NONREACTIVE Hep B Core Total Ab Nonreactive Hepatitis C Ab (EIA) Nonreactive Influenza Type A (JUNG) Influenza Type B (JUNG) Influenza A & B Note 09/08/21 09/08/21 09/08/21 05:40 05:40 15:05 WBC 15.5 H RBC 3.61 L Hgb 10.4 L Hct 32.2 L MCV 89.2 MCH 28.8 MCHC 32.3 RDW 16.9 H Plt Count 45 L D MPV 12.0 Immature Gran % (Auto) Cancelled Neut % (Auto) Cancelled Lymph % (Auto) Cancelled [place] % (Auto) Cancelled Eos % (Auto) Cancelled Baso % (Auto) Cancelled Lymph # (Auto) Cancelled [place] # (Auto) Cancelled Eos # (Auto) Cancelled Baso # (Auto) Cancelled Abs Immat Gran (auto) Cancelled Absolute Neuts (auto) Cancelled Absolute Nucleated RBC 0.000 Nucleated RBC % (auto) 0.0 Neutrophils % (Manual) 72 Band Neutrophils % 23 H Lymphocytes % (Manual) 2 L Monocytes % (Manual) 2 Metamyelocytes % 1 Abs Neuts (Manual) 14.7 H Lymphocytes # (Manual) 0.3 L Monocytes # (Manual) 0.3 Metamyelocytes # 0.2 Toxic Vacuolation PRESENT Dohle Bodies PRESENT Platelet Estimate DECREASED Large Platelets Plt Morphology Comment NORMAL RBC Morphology NOTED Polychromasia 1+ (0-2) Macrocytosis 1+ (5-14) Rosalva Cells 1+ (0-2) PT INR APTT VBG pH VBG pCO2 VBG pO2 VBG HCO3 VBG O2 Saturation VBG Base Excess Sodium 139 Potassium 4.7 Chloride 109 H Carbon Dioxide 15 L Anion Gap 20 BUN 85 H Creatinine 4.00 H* Estim Creat Clear Calc 14.4 Estimated GFR 14 Random Glucose 89 Fasting Glucose Lactic Acid Lactic Acid F/U @ 2Hr Lactic Acid F/U @ 4Hr Calcium 8.8 Phosphorus 3.4 Magnesium 2.1 Total Bilirubin 2.3 H Direct Bilirubin AST 101 H ALT 30 Alkaline Phosphatase 83 Lactate Dehydrogenase Total Creatine Kinase Troponin I High Sens C-Reactive Protein B-Natriuretic Peptide Total Protein 5.9 L Albumin 3.0 L Triglycerides Cholesterol LDL Cholesterol, Calc HDL Cholesterol Urine Color Urine Appearance Urine pH Ur Specific [place] Urine Protein Urine Glucose (UA) Urine Ketones Urine Blood Urine Nitrite Ur Leukocyte Esterase Urine RBC Urine WBC Ur Squamous Epith Cells Triple Phos Crystals Amorphous Sediment Urine Bacteria Urine Yeast Stool Occult Blood Proteinase 3 (PR3) Ab <1.0 Myeloperoxidase Ab <1.0 COVID-19 (CRISTIAN) COVID-19 Clin Com Hepatitis A IgM Ab Hep Bs Antigen Hep Bs Antibody Hep B Core Total Ab Hepatitis C Ab (EIA) Influenza Type A (JUNG) Influenza Type B (JUNG) Influenza A & B Note 09/09/21 09/09/21 09/09/21 07:15 07:15 07:15 WBC 12.3 H RBC 3.51 L Hgb 10.0 L Hct 31.0 L MCV 88.3 MCH 28.5 MCHC 32.3 RDW 17.2 H Plt Count 47 L MPV 11.2 Immature Gran % (Auto) Neut % (Auto) Lymph % (Auto) [place] % (Auto) Eos % (Auto) Baso % (Auto) Lymph # (Auto) [place] # (Auto) Eos # (Auto) Baso # (Auto) Abs Immat Gran (auto) Absolute Neuts (auto) Absolute Nucleated RBC 0.000 Nucleated RBC % (auto) 0.0 Neutrophils % (Manual) Band Neutrophils % Lymphocytes % (Manual) Monocytes % (Manual) Metamyelocytes % Abs Neuts (Manual) Lymphocytes # (Manual) Monocytes # (Manual) Metamyelocytes # Toxic Vacuolation Dohle Bodies Platelet Estimate Large Platelets Plt Morphology Comment RBC Morphology Polychromasia Macrocytosis Rosalva Cells PT INR APTT VBG pH VBG pCO2 VBG pO2 VBG HCO3 VBG O2 Saturation VBG Base Excess Sodium 144 Potassium 4.6 Chloride 112 H Carbon Dioxide 18 L Anion Gap 19 BUN 99 H Creatinine 3.48 H Estim Creat Clear Calc 16.6 Estimated GFR 17 Random Glucose 137 H D Fasting Glucose Lactic Acid Lactic Acid F/U @ 2Hr Lactic Acid F/U @ 4Hr Calcium 9.0 Phosphorus Magnesium Total Bilirubin 1.3 H Direct Bilirubin 0.6 H AST 44 H D ALT 30 Alkaline Phosphatase 80 Lactate Dehydrogenase Total Creatine Kinase Troponin I High Sens C-Reactive Protein B-Natriuretic Peptide 401 H Total Protein 5.9 L Albumin 2.9 L Triglycerides 269 Cholesterol 91 LDL Cholesterol, Calc 33 HDL Cholesterol < 5 Urine Color Urine Appearance Urine pH Ur Specific [place] Urine Protein Urine Glucose (UA) Urine Ketones Urine Blood Urine Nitrite Ur Leukocyte Esterase Urine RBC Urine WBC Ur Squamous Epith Cells Triple Phos Crystals Amorphous Sediment Urine Bacteria Urine Yeast Stool Occult Blood Proteinase 3 (PR3) Ab Myeloperoxidase Ab COVID-19 (CRISTIAN) COVID-19 Clin Com Hepatitis A IgM Ab Hep Bs Antigen Hep Bs Antibody Hep B Core Total Ab Hepatitis C Ab (EIA) Influenza Type A (JUNG) Influenza Type B (JUNG) Influenza A & B Note 09/09/21 09/09/21 09/10/21 07:15 07:15 10:37 WBC 8.4 RBC 3.67 L Hgb 10.6 L Hct 32.5 L MCV 88.6 MCH 28.9 MCHC 32.6 RDW 17.3 H Plt Count 64 L D MPV 10.6 Immature Gran % (Auto) Neut % (Auto) Lymph % (Auto) [place] % (Auto) Eos % (Auto) Baso % (Auto) Lymph # (Auto) [place] # (Auto) Eos # (Auto) Baso # (Auto) Abs Immat Gran (auto) Absolute Neuts (auto) Absolute Nucleated RBC 0.000 Nucleated RBC % (auto) 0.0 Neutrophils % (Manual) Band Neutrophils % Lymphocytes % (Manual) Monocytes % (Manual) Metamyelocytes % Abs Neuts (Manual) Lymphocytes # (Manual) Monocytes # (Manual) Metamyelocytes # Toxic Vacuolation Dohle Bodies Platelet Estimate Large Platelets Plt Morphology Comment RBC Morphology Polychromasia Macrocytosis Pruden Cells PT INR APTT VBG pH VBG pCO2 VBG pO2 VBG HCO3 VBG O2 Saturation VBG Base Excess Sodium Potassium Chloride Carbon Dioxide Anion Gap BUN Creatinine Estim Creat Clear Calc Estimated GFR Random Glucose Fasting Glucose Lactic Acid Lactic Acid F/U @ 2Hr Lactic Acid F/U @ 4Hr Calcium Phosphorus Magnesium Total Bilirubin Direct Bilirubin AST ALT Alkaline Phosphatase Lactate Dehydrogenase 200 191 Total Creatine Kinase 104 Troponin I High Sens C-Reactive Protein B-Natriuretic Peptide Total Protein Albumin Triglycerides Cholesterol LDL Cholesterol, Calc HDL Cholesterol Urine Color Urine Appearance Urine pH Ur Specific [place] Urine Protein Urine Glucose (UA) Urine Ketones Urine Blood Urine Nitrite Ur Leukocyte Esterase Urine RBC Urine WBC Ur Squamous Epith Cells Triple Phos Crystals Amorphous Sediment Urine Bacteria Urine Yeast Stool Occult Blood Proteinase 3 (PR3) Ab Myeloperoxidase Ab COVID-19 (CRISTIAN) COVID-19 Clin Com Hepatitis A IgM Ab Hep Bs Antigen Hep Bs Antibody Hep B Core Total Ab Hepatitis C Ab (EIA) Influenza Type A (JUNG) Influenza Type B (JUNG) Influenza A & B Note 09/10/21 09/11/21 09/11/21 10:37 06:22 06:22 WBC 8.5 RBC 3.78 L Hgb 10.7 L Hct 33.7 L MCV 89.2 MCH 28.3 MCHC 31.8 RDW 17.6 H Plt Count 88 L D MPV 10.9 Immature Gran % (Auto) Neut % (Auto) Lymph % (Auto) [place] % (Auto) Eos % (Auto) Baso % (Auto) Lymph # (Auto) [place] # (Auto) Eos # (Auto) Baso # (Auto) Abs Immat Gran (auto) Absolute Neuts (auto) Absolute Nucleated RBC 0.000 Nucleated RBC % (auto) 0.0 Neutrophils % (Manual) Band Neutrophils % Lymphocytes % (Manual) Monocytes % (Manual) Metamyelocytes % Abs Neuts (Manual) Lymphocytes # (Manual) Monocytes # (Manual) Metamyelocytes # Toxic Vacuolation Dohle Bodies Platelet Estimate Large Platelets Plt Morphology Comment RBC Morphology Polychromasia Macrocytosis Rosalva Cells PT INR APTT VBG pH VBG pCO2 VBG pO2 VBG HCO3 VBG O2 Saturation VBG Base Excess Sodium 147 H 150 H Potassium 4.4 4.1 Chloride 116 H 118 H Carbon Dioxide 21 L 25 Anion Gap 14 11 L BUN 91 H 81 H Creatinine 2.61 H 2.16 H Estim Creat Clear Calc 22.1 26.8 Estimated GFR 24 29 Random Glucose 152 H Fasting Glucose 164 H D Lactic Acid Lactic Acid F/U @ 2Hr Lactic Acid F/U @ 4Hr Calcium 9.0 9.0 Phosphorus Magnesium Total Bilirubin 1.3 H Direct Bilirubin 0.6 H AST 25 D ALT 26 Alkaline Phosphatase 84 Lactate Dehydrogenase Total Creatine Kinase Troponin I High Sens C-Reactive Protein B-Natriuretic Peptide Total Protein 6.2 L Albumin 2.9 L Triglycerides Cholesterol LDL Cholesterol, Calc HDL Cholesterol Urine Color Urine Appearance Urine pH Ur Specific [place] Urine Protein Urine Glucose (UA) Urine Ketones Urine Blood Urine Nitrite Ur Leukocyte Esterase Urine RBC Urine WBC Ur Squamous Epith Cells Triple Phos Crystals Amorphous Sediment Urine Bacteria Urine Yeast Stool Occult Blood Proteinase 3 (PR3) Ab Myeloperoxidase Ab COVID-19 (CRISTIAN) COVID-19 Clin Com Hepatitis A IgM Ab Hep Bs Antigen Hep Bs Antibody Hep B Core Total Ab Hepatitis C Ab (EIA) Influenza Type A (JUNG) Influenza Type B (JUNG) Influenza A & B Note 09/11/21 14:22 WBC RBC Hgb Hct MCV MCH MCHC RDW Plt Count MPV Immature Gran % (Auto) Neut % (Auto) Lymph % (Auto) [place] % (Auto) Eos % (Auto) Baso % (Auto) Lymph # (Auto) [place] # (Auto) Eos # (Auto) Baso # (Auto) Abs Immat Gran (auto) Absolute Neuts (auto) Absolute Nucleated RBC Nucleated RBC % (auto) Neutrophils % (Manual) Band Neutrophils % Lymphocytes % (Manual) Monocytes % (Manual) Metamyelocytes % Abs Neuts (Manual) Lymphocytes # (Manual) Monocytes # (Manual) Metamyelocytes # Toxic Vacuolation Dohle Bodies Platelet Estimate Large Platelets Plt Morphology Comment RBC Morphology Polychromasia Macrocytosis Rosalva Cells PT INR APTT VBG pH VBG pCO2 VBG pO2 VBG HCO3 VBG O2 Saturation VBG Base Excess Sodium 149 H Potassium Chloride Carbon Dioxide Anion Gap BUN Creatinine Estim Creat Clear Calc Estimated GFR Random Glucose Fasting Glucose Lactic Acid Lactic Acid F/U @ 2Hr Lactic Acid F/U @ 4Hr Calcium Phosphorus Magnesium Total Bilirubin Direct Bilirubin AST ALT Alkaline Phosphatase Lactate Dehydrogenase Total Creatine Kinase Troponin I High Sens C-Reactive Protein B-Natriuretic Peptide Total Protein Albumin Triglycerides Cholesterol LDL Cholesterol, Calc HDL Cholesterol Urine Color Urine Appearance Urine pH Ur Specific [place] Urine Protein Urine Glucose (UA) Urine Ketones Urine Blood Urine Nitrite Ur Leukocyte Esterase Urine RBC Urine WBC Ur Squamous Epith Cells Triple Phos Crystals Amorphous Sediment Urine Bacteria Urine Yeast Stool Occult Blood Proteinase 3 (PR3) Ab Myeloperoxidase Ab COVID-19 (CRISTIAN) COVID-19 Clin Com Hepatitis A IgM Ab Hep Bs Antigen Hep Bs Antibody Hep B Core Total Ab Hepatitis C Ab (EIA) Influenza Type A (JUNG) Influenza Type B (JUNG) Influenza A & B Note Airway Mallampati Class: II (poor dentition, missing multiple teeth on top) TM Dist: >3cm Neck ROM: Full Heart: rrr Lungs: cta b/l Assessment and Plan Assessment Anesthesia Assessment: Anesthesia Plan Discussed and Chart Reviewed Final Anesthetic Review Family History of Problems with Anesthesia: No History of Problems with Anesthesia: No NPO: Yes ASA Class: III Final Preanesthetic Review: No Changes in Pt Med Stat, Meds/Allgs Chart Reviewed and Consent Obtained/Reviewed (with Shelby) Patient Risk: Intermediate Procedure Risk: Low Anesthetic Plan Anesthetic Plan: MAC: Disposition: Standard PACU Documented by User: Arnav Bowen MD 09/11/21 17:45 HPI - Anesthesia Eval Consult details Narrative: 81 M for Dorsal Slit with penal biopsy PMFSH Past Medical History Medical History Accelerated essential hypertension Hyperlipidemia Pulmonary embolism Social History Social History Household Members: Significant Other Housing: House Do you presently have visiting nurse or other home services: No Patient Tobacco Use Status: Never used Tobacco e-Cigarette/Vaping Use: Never Used Second Hand Smoke Exposure: No Use of substances other than those prescribed or required for medical reasons: No Currently Displaying Signs/Symptoms of Drug Intoxication Withdrawal: No Have you been hit, kicked, punched, or otherwise hurt by someone within the past year? If so, by whom?: No Do you feel safe in your current relationship?: No Is there a partner from a previous relationship who is making you feel unsafe now?: No Are you made to feel afraid or neglected: No Advance Directives: No Advance Directives Information Provided: Yes Do you have thoughts of harming others: None Do you have a plan to hurt others: No Plan Recently lost weight without trying: No Nutrition Risks: No Nutritional Risk Poor oral hygiene: No service: No Current occupational status: retired Meds Allergies Allergy/AdvReac Type Severity Reaction Status Date / Time No Known Allergies Allergy Unverified 12/03/19 16:48 Home Medications Medication Instructions Recorded Confirmed Last Taken Type lisinopril 30 mg tablet 1 tab PO DAILY 09/07/21 09/07/21 Unknown History metoprolol succinate 100 mg 1 tab PO DAILY 09/07/21 09/07/21 Unknown History tablet,extended release 24 hr rosuvastatin 10 mg tablet 1 tab PO BEDTIME 09/07/21 09/07/21 Unknown History Exam Airway Loose/Missing/Broken Teeth: Yes (poor dentition, missing multiple teeth on top) Assessment and Plan Final Anesthetic Review Final Preanesthetic Review: Anes Risks/Benef Reviewed Procedure Risk: Intermediate Anesthetic Plan Disposition: Inp. Admit - Standard Bed
--- NOTE | 2021-09-11 15:38 | MHC.SHP ---
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 No changes have occurred unless specified.
--- NOTE | 2021-09-11 16:48 | W.PM.OPN ---
Operative Note Operative Note Date of Service: 09/11/21 Narrative: PreOperative Diagnosis: question of penile mass and phimosis Post Operative Diagnosis: phimosis, vasculopathy of penis Procedure: dorsal slit and penile biopsy Surgeon: Dr Jordan Meeks Anesthesia: general Indications for procedure: swollen penis with phimosis at time of admission Procedure: After informed consent was verified the patient was brought to the operating room and placed in a supine position. anesthesia was administered per protocol. patient was prepped and draped in sterile fashion. Safety pause time-out performed. Antibiotics have been given. Local anesthetic placed is ring block. Dorsal slit with clamping before skin is cut. Dorsal slit edges reapproximated with interrupted 4-0 and 3-0 chromic sutures. Glans of penis with midline deep mitul A minor and what appeared to be poor blood flow or drainage from left portion of glans. Biopsies taken using prostate biopsy done in order to get core biopsy. Biopsy also taken of penile shaft with induration After biopsies were taken Barry catheter placed back into the bladder for drainage. He tolerated procedure and was transferred in stable condition to recovery area Pathology: biopsies Drains: []
--- NOTE | 2021-09-11 17:08 | PM.PNNEP ---
Subjective Subjective Date of Service: 09/11/21 Interval history: Chart Reviewed. Events noted. Physical Exam Vital Signs: Vital Signs: Last Vital Signs Temp 99.0 F 09/11/21 16:52 Pulse 98 09/11/21 16:52 Resp 20 09/11/21 16:52 BP 103/54 L 09/11/21 16:52 Pulse Ox 97 09/11/21 16:52 O2 Del Method 09/11/21 16:52 O2 Flow Rate 3 09/11/21 16:52 Oxygen Flow Rate 5 09/07/21 01:41 BMI result Body Mass Index 26.9 Const: General: comfortable and no acute distress HEENT: Head: Yes normal to inspection, Yes normocephalic and Yes atraumatic Neck: Neck: Yes no JVD Resp: Effort & Inspection: normal respiratory effort Cardio: Jugular venous distension: no JVD Rate: regular rate Rhythm: regular rhythm Heart sounds: S1 normal heart sound present and S2 normal heart sound present GI: Auscultation: normal bowel sounds Neuro: General: moves all extremities Extrem: General: Yes no clubbing, cyanosis or edema Objective Data Labs CBC & Chem 7: 09/11/21 06:22 09/11/21 14:22 Labs: Laboratory Results - last 24 hr 09/08/21 09/11/21 09/11/21 15:05 06:22 06:22 WBC 8.5 RBC 3.78 L Hgb 10.7 L Hct 33.7 L MCV 89.2 MCH 28.3 MCHC 31.8 RDW 17.6 H Plt Count 88 L D MPV 10.9 Absolute Nucleated RBC 0.000 Nucleated RBC % (auto) 0.0 Sodium 150 H Potassium 4.1 Chloride 118 H Carbon Dioxide 25 Anion Gap 11 L BUN 81 H Creatinine 2.16 H Estim Creat Clear Calc 26.8 Estimated GFR 29 Fasting Glucose 164 H D Calcium 9.0 Proteinase 3 (PR3) Ab <1.0 Myeloperoxidase Ab <1.0 09/11/21 14:22 WBC RBC Hgb Hct MCV MCH MCHC RDW Plt Count MPV Absolute Nucleated RBC Nucleated RBC % (auto) Sodium 149 H Potassium Chloride Carbon Dioxide Anion Gap BUN Creatinine Estim Creat Clear Calc Estimated GFR Fasting Glucose Calcium Proteinase 3 (PR3) Ab Myeloperoxidase Ab Microbiology Microbiology Results: Microbiology 09/07/21 02:24 Blood - Venous Blood Culture - Preliminary Proteus vulgaris Group G streptococcus 09/07/21 02:14 Blood - Venous Blood Culture - Final Morganella morganii ssp derick Group G streptococcus 09/08/21 05:41 Blood - Venous Blood Culture - Preliminary No growth after 48 hours. 09/08/21 05:40 Blood - Venous Blood Culture - Preliminary No growth after 48 hours. 09/07/21 Unknown Urine Catheterized - Barry Catheter Urine Culture - Final Procedures Date of Service Date of Service: 09/11/21 Assessment & Plan Assessment and plan (1) Acute renal failure: Status: Acute Assessment and Plan: Has CKD 3 at baseline ALETHEA due to obstruction & septic & hemodynamic ATN Cr improving. Had altered autoregulation in the kidney being on ACEI Continue to hold acei/arb, avoidance of IV contrast. Monitor I/O?s Urology following; Continue with FW replacement. Continues to have ~ 3.0 liter FWD. Provide D5W at 75 cc/hr. C/W rest of current supportive care for now; Shall closely F/U (2) Hydronephrosis: Status: Acute Time Spent With Patient Time: Total time spent is greater than 50% in coordination of care (as documented) at patient's floor/unit and/or counseling patient: Progress Note: Quality Stroke Does the patient have a stroke diagnosis?: No
[2021-09-11 20:42] LABS: Complement C3 93 mg/dL
[2021-09-11] MEDS: Atorvastatin Calcium 40 MG TABLET PO (21:42)
[2021-09-12] VITALS (7 sets, daily range): BP systolic 112–147; BP diastolic 64–89; PULSE 67–96; RESP 15–20; TEMP 36.6–37.6; O2SAT 96–99
[2021-09-12] MEDS: Heparin Sodium,Porcine 5,000 UNIT/ML VIAL 5000 UNIT SUBCUT ×3 (00:03→17:10)
[2021-09-12 06:48] LABS: Hematocrit 32.5 % (42.0-52.0); Hemoglobin 10.5 g/dl (14.0-18.0); Mean Corpuscular HGB Conc 32.3 g/dl (31.0-36.0); Mean Corpuscular Hemoglobin 28.9 pg (27.0-33.0); Mean Corpuscular Volume 89.5 fL (80.0-98.0); Mean Platelet Volume 10.7 fL (9.4-12.4); Platelet Count 120 X10*3/uL (160-400); Red Blood Count 3.63 X10*6/uL (4.60-5.80); Red Cell Distribution Width 17.8 % (11.0-16.0); White Blood Count 9.4 X10*3/uL (4.8-10.8)
[2021-09-12 07:29] LABS: Anion Gap 12 (12-20); Blood Urea Nitrogen 73 mg/dL (9-16); Calcium 8.8 mg/dL (8.4-10.2); Carbon Dioxide 24 mmol/L (22-29); Chloride 116 mmol/L (96-108); Creatinine Clr Calc Pharmacy 31.6; Estimated Glomerular Filt Rate 36; Glucose Fasting 180 mg/dL (60-99); Potassium 4.1 mmol/L (3.3-5.1); Sodium 148 mmol/L (135-145)
[2021-09-12] MEDS: Dextrose 5 % 1,000 ML 100 ML IVCONT (08:50)
[2021-09-12] MEDS: Metoprolol Succinate ER 100 MG TAB.ER.24H PO (08:50)
--- NOTE | 2021-09-12 10:27 | HO.POSTANES ---
Post Anesthesia Evaluation Post Anesthesia Evaluation Vital Signs: Vital Signs Temp Pulse Resp BP Pulse Ox O2 Del Method O2 Flow Rate 09/12/21 08:00 98 F 82 16 138/66 97 Nasal Cannula 3 09/12/21 03:45 99.6 F 83 15 128/66 96 Nasal Cannula 3 09/12/21 00:00 99.1 F 96 15 147/72 H 96 Nasal Cannula 3 Anesthesia: Monitored Mental Status: Awake Pain Control: Satisfactory Nausea/Vomiting: None Hydration: Adequate Anesthesia-Related Issues: No Anes. Related Issues
--- NOTE | 2021-09-12 10:31 | HO.PM.IMPN ---
Subjective Subjective Date of Service: 09/12/21 Interval History: cc: ams interval history: no specific complaints, feels weak Cardiovascular Cardiovascular: Reports no additional cardiovascular complaints Respiratory Respiratory: Reports no additional respiratory complaints Physical Exam Vital Signs: Vital Signs: Last Vital Signs Temp 98 F 09/12/21 08:00 Pulse 82 09/12/21 08:00 Resp 16 09/12/21 08:00 BP 138/66 09/12/21 08:00 Pulse Ox 97 09/12/21 08:00 O2 Del Method 09/12/21 08:00 O2 Flow Rate 3 09/12/21 08:00 Oxygen Flow Rate 5 09/07/21 01:41 BMI result Body Mass Index 26.9 General: lethargic, ill appearing Resp: diminished bilateral, no accessory muscles used CVS: S1,S2,RRR GI: soft, non tender, non distended Neuro: motor grossly intact, lethargic Psych: appropriate affect, imapired insight Objective Data Active Medications Acetaminophen (Acetaminophen 325 Mg Tablet) 650 mg PO Q6H PRN PRN Reason: Pain, Mild (Pain Scale 1-3) Atorvastatin Calcium (Atorvastatin Calcium 40 Mg Tablet) 40 mg PO BEDTIME [facility] Last Admin: 09/11/21 21:42 Dose: 40 mg Documented By: PK Heparin Sodium (Porcine) (Heparin Sodium,Porcine 5,000 Unit/Ml Vial) 5,000 unit SUBCUT Q8H [facility] Last Admin: 09/12/21 08:50 Dose: 5,000 unit Documented By: KAREN Levofloxacin (Levaquin) 250 mg in 50 mls @ 50 mls/hr IV Q24H [facility] Last Infusion: 09/11/21 17:55 Dose: 0 mls/hr Documented By: SUZETTE Dextrose (D5w) 1,000 mls @ 100 mls/hr IVCONT .Q10H [facility] Last Admin: 09/12/21 08:50 Dose: 100 mls/hr Documented By: KAREN Metoprolol Succinate (Metoprolol Succinate Er 100 Mg Tab.Er.24h) 100 mg PO DAILY [facility]; Protocol Last Admin: 09/12/21 08:50 Dose: 100 mg Documented By: CIARA-NAYELI Omeprazole (Omeprazole 20 Mg Capsule.Dr) 20 mg PO DAILY@0630 [facility] Last Admin: 09/12/21 05:30 Dose: Not Given Documented By: PK Non-Admin Reason: NPO Ondansetron HCl (Ondansetron Hcl 4 Mg/2 Ml Vial) 4 mg IVPUSH Q8H PRN PRN Reason: Nausea Labs CBC & Chem 7: 09/12/21 06:23 09/12/21 06:23 Labs: Laboratory Results - last 24 hr 09/08/21 09/09/21 09/12/21 15:05 07:15 06:23 MCV 89.5 MCH 28.9 MCHC 32.3 RDW 17.8 H Plt Count 120 L D MPV 10.7 Absolute Nucleated RBC 0.000 Nucleated RBC % (auto) 0.0 Anion Gap Estim Creat Clear Calc Estimated GFR Fasting Glucose Calcium Proteinase 3 (PR3) Ab <1.0 Myeloperoxidase Ab <1.0 Complement C3 93 Complement C4 24 09/12/21 06:23 MCV MCH MCHC RDW Plt Count MPV Absolute Nucleated RBC Nucleated RBC % (auto) Anion Gap 12 Estim Creat Clear Calc 31.6 Estimated GFR 36 Fasting Glucose 180 H Calcium 8.8 Proteinase 3 (PR3) Ab Myeloperoxidase Ab Complement C3 Complement C4 Microbiology Microbiology Results: Microbiology 09/07/21 02:24 Blood Culture - Preliminary Blood - Venous Proteus vulgaris Group G streptococcus 09/07/21 02:14 Blood Culture - Final Blood - Venous Morganella morganii ssp derick Group G streptococcus Assessment and Plan (1) Acute UTI: Status: Acute (2) Pneumonia: Status: Acute (3) Acute hypotension: Status: Acute (4) Acute renal failure: Status: Acute (5) Acute respiratory failure with hypoxia: Status: Acute (6) Acute encephalopathy: Status: Acute (7) Acute diastolic CHF (congestive heart failure): Status: Acute (8) Lactic acidosis: Status: Acute Plan 81-year-old gentleman with past medical history of hypertension hyperlipidemia has not seen a primary care physician in last several years but has been receiving his medications through pharmacy on metoprolol, Crestor and lisinopril was brought into [facility] by paramedics due to confusion and difficulty in urination acute septic shock due to stone obstruction/UTI/ pneumonia chest x-ray showed right middle lobe opacity/ pulmonary vascular congestion shock resolved blood cultures x2 polymicrobial on levaquin ID consult concern for penile cancer, mri pelvis done, report pending following hyponatremia increased d5w to 125cc/hr, monitor acute encephalopathy resolving likely due to acute infection as per girlfriend noted to be confused for last 1 month got worsened in last 1 week no prior history of underlying dementia has not seen a physician in several years treat infection follow clinical course acute hypoxic respiratory failure resolved likely due to pneumonia/CHF acute renal failure likely due to infection/pre renal /obstructive uropathy with calculi, left UVJ stone with mild left hydronephrosis imprvoing acute diastolic congestive heart failure echo showed EF 55-60% impaired relaxation, s/p IV diuretic,- 4 liters elevated troponin troponin trending down, patient denies chest pain echo as above, EKG showed T-wave inversion inferior lateral lead will obtain repeat EKG, not a candidate for aggressive treatment since noted to have hematuria resume statins and beta-joey elevated LFTs likely secondary to sepsis,hepatitis serology nonreactive resolving thrombocytopenia question secondary to sepsis,monitor, resolving hematuria resolving DVT prophylaxis with compression boots due to hematuria will avoid anticoagulant. reason for continued hospitalization:hypernatremia needing ivf, monitoring Quality Stroke Does the patient have a stroke diagnosis?: No VTE Prior VTE?: Yes VTE Risk Level:: Medical - moderate - high VTE Device Contraindication: N/A - Device Ordered VTE Drug Contraindication: N/A - Med Ordered
[2021-09-12] MEDS: levoFLOXacin/D5W 250 MG/50 ML PIGGYBACK 50 MG IV (14:39)
[2021-09-12] MEDS: Dextrose 5 % 1,000 ML 125 ML IVCONT (14:39)
--- NOTE | 2021-09-12 15:04 | PC.NURSE ---
Addendum entered by Cristo Cespedes RN 09/12/21 17:13: Informed md of pt's eyes draining moderate amt of thick yellow fluid and right eye sclera and eye lids being red. Original Note: pt takes meds crushed in apple sauce w/o difficulty. pt had visitor today assisting with care. Fluids maintained. skin care performed. Eyes cleansed. md informed of pt's discharge from eyes, ? infection. dressing changed to right IJ. hernandez in place. surgical wound to penis with dressing intact. safety and fall precautions in place. call adame within reach.
--- NOTE | 2021-09-12 15:40 | P.CNID_ITS ---
History of Present Illness Data of Consult Service Date: 09/12/21 Requesting physician: Justin Perez Primary Care Provider: Chester Garcia MD [facility] Reason for consult: bacteremia He presents with weakness and fatigue. He has had recurrent UTI and feels like this. He has mild left hydronephrosis on CT scan and multiple blood organisms including morganella,proteus and strep. He is seen by Urology. Review of Systems Review of Systems: Yes all other systems are reviewed and are negative PMFSH Past Medical History Medical History Accelerated essential hypertension Hyperlipidemia Pulmonary embolism Family History Family history: reviewed and not pertinent Social History Social History Household Members: Significant Other Housing: House Do you presently have visiting nurse or other home services: No Patient Tobacco Use Status: Never used Tobacco e-Cigarette/Vaping Use: Never Used Second Hand Smoke Exposure: No Use of substances other than those prescribed or required for medical reasons: No Currently Displaying Signs/Symptoms of Drug Intoxication Withdrawal: No Have you been hit, kicked, punched, or otherwise hurt by someone within the past year? If so, by whom?: No Do you feel safe in your current relationship?: No Is there a partner from a previous relationship who is making you feel unsafe now?: No Are you made to feel afraid or neglected: No Advance Directives: No Advance Directives Information Provided: Yes Do you have thoughts of harming others: None Do you have a plan to hurt others: No Plan Recently lost weight without trying: No Nutrition Risks: No Nutritional Risk Poor oral hygiene: No service: No Current occupational status: retired [employer] Allergies Allergy/AdvReac Type Severity Reaction Status Date / Time No Known Allergies Allergy Unverified 12/03/19 16:48 Active Medications: Current Medications Acetaminophen (Acetaminophen 325 Mg Tablet) 650 mg PO Q6H PRN PRN Reason: Pain, Mild (Pain Scale 1-3) Atorvastatin Calcium (Atorvastatin Calcium 40 Mg Tablet) 40 mg PO BEDTIME [facility] Last Admin: 09/11/21 21:42 Dose: 40 mg Heparin Sodium (Porcine) (Heparin Sodium,Porcine 5,000 Unit/Ml Vial) 5,000 unit SUBCUT Q8H [facility] Last Admin: 09/12/21 08:50 Dose: 5,000 unit Levofloxacin (Levaquin) 250 mg in 50 mls @ 50 mls/hr IV Q24H [facility] Last Admin: 09/12/21 14:39 Dose: 50 mls/hr Dextrose (D5w) 1,000 mls @ 125 mls/hr IVCONT .Q8H [facility] Last Admin: 09/12/21 14:39 Dose: 125 mls/hr Metoprolol Succinate (Metoprolol Succinate Er 100 Mg Tab.Er.24h) 100 mg PO DAILY [facility]; Protocol Last Admin: 09/12/21 08:50 Dose: 100 mg Omeprazole (Omeprazole 20 Mg Capsule.Dr) 20 mg PO DAILY@0630 [facility] Last Admin: 09/12/21 05:30 Dose: Not Given Ondansetron HCl (Ondansetron Hcl 4 Mg/2 Ml Vial) 4 mg IVPUSH Q8H PRN PRN Reason: Nausea Home Medications Medication Instructions Recorded Confirmed Last Taken Type lisinopril 30 mg tablet 1 tab PO DAILY 09/07/21 09/07/21 Unknown History metoprolol succinate 100 mg 1 tab PO DAILY 09/07/21 09/07/21 Unknown History tablet,extended release 24 hr rosuvastatin 10 mg tablet 1 tab PO BEDTIME 09/07/21 09/07/21 Unknown History Physical Exam Vital Signs: Vital Signs: Last Vital Signs Temp 98.9 F 09/12/21 15:22 Pulse 77 09/12/21 15:22 Resp 18 09/12/21 15:22 BP 131/64 09/12/21 15:22 Pulse Ox 98 09/12/21 15:22 O2 Del Method 09/12/21 15:22 O2 Flow Rate 3 09/12/21 15:22 Oxygen Flow Rate 5 09/07/21 01:41 BMI result Body Mass Index 26.9 Const: General: cooperative and comfortable Orientation/consciousness: patient oriented x3 HEENT: Head: Yes normal to inspection Face and sinus: Yes normal facial exam Mouth: Normal oral and palatal mucosa present Eyes: General: appearance normal, both eyes and all related structures Pupils: Equal, round and reactive pupils present Resp: Effort & Inspection: normal respiratory effort Cardio: Rate: regular rate Rhythm: regular rhythm GI: Palpation (GI): Soft to palpation and nontender : General: Yes no CVA tenderness Back/Spine/Pelvis: Back: no CVA tenderness Skin: General skin exam: no rashes or lesions noted Neuro: General: patient oriented x3 and CN's II-XI intact bilaterally Cranial nerves: Yes Equal, round and reactive pupils present Extrem: General: Yes normal to inspection Psych: Appearance: grossly normal Mental Status: mental status grossly normal Const: Constitutional General: cooperative and comfortable Orientation/consciousness: patient oriented x3 HENMT: Head: normal to inspection Face and sinus: normal facial exam Mouth: Normal oral and palatal mucosa present Eyes: General: appearance normal, both eyes and all related structures Pupils: Equal, round and reactive pupils present Resp: Effort & Inspection: normal respiratory effort Cardio: Rate: regular rate Rhythm: regular rhythm GI: Palpation (GI): Soft to palpation and nontender : General Exam: Yes no CVA tenderness Skin: General skin exam: no rashes or lesions noted Neuro: Cranial nerves: Yes Equal, round and reactive pupils present Extrem: General: normal to inspection Psych: Appearance: grossly normal Mental Status: mental status grossly normal Results Labs CBC & Chem 7: 09/15/21 06:21 09/15/21 06:21 Labs: Short CBC 09/12/21 Range/Units 06:23 WBC 9.4 (4.8-10.8) X10*3/uL Hgb 10.5 L (14.0-18.0) g/dl Hct 32.5 L (42.0-52.0) % Plt Count 120 L D (160-400) X10*3/uL BMP 09/12/21 06:23 Sodium 148 H Potassium 4.1 Chloride 116 H Carbon Dioxide 24 BUN 73 H Creatinine 1.83 H Calcium 8.8 Microbiology Microbiology Results: Microbiology 09/07/21 02:24 Blood - Venous Blood Culture - Preliminary Proteus vulgaris Group G streptococcus 09/07/21 02:14 Blood - Venous Blood Culture - Final Morganella morganii ssp derick Group G streptococcus 09/08/21 05:41 Blood - Venous Blood Culture - Preliminary No growth after 48 hours. 09/08/21 05:40 Blood - Venous Blood Culture - Preliminary No growth after 48 hours. 09/07/21 Unknown Urine Catheterized - Barry Catheter Urine Culture - Final Assessment and Plan (1) Penile mass: Status: Acute compression likely causes bacteremia and penile mass is causing compression (2) Bacteremia: Status: Acute would give Levaquin for 14-21 d total Urology investigate mass,biopsy
[2021-09-13] VITALS: BP 152/72; PULSE 77; RESP 16; TEMP 36.7; O2SAT 98
[2021-09-13] MEDS: Dextrose 5 % 1,000 ML 125 ML IVCONT ×2 (00:26→07:59)
[2021-09-13] MEDS: Heparin Sodium,Porcine 5,000 UNIT/ML VIAL 5000 UNIT SUBCUT ×3 (00:26→16:18)
[2021-09-13] MEDS: Moxifloxacin HCl 0.5 % Oph Sol 3 ML DRPBTL 1 DROP EYE-BOTH ×4 (00:26→21:09)
[2021-09-13 04:00] VITALS: BP 157/74; PULSE 92; RESP 15; TEMP 37.6; O2SAT 98
[2021-09-13 07:05] LABS: Hematocrit 32.1 % (42.0-52.0); Hemoglobin 10.4 g/dl (14.0-18.0); Mean Corpuscular HGB Conc 32.4 g/dl (31.0-36.0); Mean Corpuscular Hemoglobin 28.9 pg (27.0-33.0); Mean Corpuscular Volume 89.2 fL (80.0-98.0); Platelet Count 172 X10*3/uL (160-400); Red Cell Distribution Width 17.6 % (11.0-16.0); White Blood Count 12.1 X10*3/uL (4.8-10.8)
[2021-09-13 07:12] LABS: INTERNATIONAL NORM RATIO 1.4 (0.9-1.1)
[2021-09-13 07:25] LABS: Alanine Aminotransferase 82 U/L (0-40); Albumin Level 2.6 g/dL (3.5-5.0); Alkaline Phosphatase 115 U/L (39-117); Anion Gap 13 (12-20); Aspartate Amino Transferase 128 U/L (5-37); Bilirubin Direct 1.4 mg/dL (0.0-0.5); Bilirubin Total 2.7 mg/dL (0.0-1.0); Blood Urea Nitrogen 51 mg/dL (9-16); Calcium 8.3 mg/dL (8.4-10.2); Carbon Dioxide 21 mmol/L (22-29); Chloride 111 mmol/L (96-108); Creatinine Clr Calc Pharmacy 43.8; Estimated Glomerular Filt Rate 52; Glucose Fasting 175 mg/dL (60-99); Sodium 141 mmol/L (135-145); Total Protein 6.2 g/dL (6.5-8.0)
[2021-09-13] MEDS: Metoprolol Succinate ER 100 MG TAB.ER.24H PO (07:58)
[2021-09-13 08:00] VITALS: BP 112/55; PULSE 87; RESP 20; TEMP 37.3; O2SAT 98
[2021-09-13 11:57] VITALS: BP 118/58; PULSE 84; RESP 20; TEMP 37; O2SAT 97
[2021-09-13 12:51] LABS: Haloperidol 1 ng/mL (5-15)
--- NOTE | 2021-09-13 12:56 | PM.UROPN ---
Subjective Subjective Date of Service: 09/13/21 Interval history: Dressing removed Healing dorsal slit Glans has demarcated dusky half May benefit from Doppler ultrasound of penis for outflow examination Slowly resolving urosepsis Antibiotics per ID Physical Exam Vital Signs: Vital Signs: Last Vital Signs Temp 98.6 F 09/13/21 11:57 Pulse 84 09/13/21 11:57 Resp 20 09/13/21 11:57 BP 118/58 L 09/13/21 11:57 Pulse Ox 97 09/13/21 11:57 O2 Del Method 09/13/21 11:57 O2 Flow Rate 3 09/13/21 08:00 Oxygen Flow Rate 5 09/07/21 01:41 BMI result Body Mass Index 26.9 Const: General: cooperative, healthy appearing, comfortable and no acute distress Orientation/consciousness: patient oriented x3 HEENT: Face and sinus: Yes normal facial exam Mouth: moist mucous membranes Neck: Neck: Yes normal visual inspection, Yes full ROM and Yes trachea midline Chest: Chest palpation & inspection: normal inspection of the chest Resp: Effort & Inspection: normal respiratory effort, able to speak in complete sentences and no respiratory distress GI: Inspection: Yes normal to inspection Back/Spine/Pelvis: Cervical Spine: normal cervical lordosis Thoracic/Lumbar Spine: thoracic and lumbar spine normal to inspection Skin: General skin exam: no rashes or lesions noted Neuro: General: patient oriented x3, tone normal and moves all extremities Extrem: General: Yes normal to inspection and Yes capillary refill normal Urology Results Labs CBC & Chem 7: 09/13/21 06:32 09/13/21 06:32 Labs: Laboratory Results - last 24 hr 09/08/21 09/13/21 09/13/21 16:33 06:32 06:32 WBC 12.1 H RBC 3.60 L Hgb 10.4 L Hct 32.1 L MCV 89.2 MCH 28.9 MCHC 32.4 RDW 17.6 H Plt Count 172 D MPV 11.0 Absolute Nucleated RBC 0.000 Nucleated RBC % (auto) 0.0 PT 16.0 H INR 1.4 H Sodium Potassium Chloride Carbon Dioxide Anion Gap BUN Creatinine Estim Creat Clear Calc Estimated GFR Fasting Glucose Calcium Total Bilirubin Direct Bilirubin AST ALT Alkaline Phosphatase Total Protein Albumin Haloperidol 1 L 09/13/21 06:32 WBC RBC Hgb Hct MCV MCH MCHC RDW Plt Count MPV Absolute Nucleated RBC Nucleated RBC % (auto) PT INR Sodium 141 Potassium 4.0 Chloride 111 H Carbon Dioxide 21 L Anion Gap 13 BUN 51 H Creatinine 1.32 Estim Creat Clear Calc 43.8 Estimated GFR 52 Fasting Glucose 175 H Calcium 8.3 L Total Bilirubin 2.7 H Direct Bilirubin 1.4 H AST 128 H ALT 82 H Alkaline Phosphatase 115 D Total Protein 6.2 L Albumin 2.6 L Haloperidol Progress Note: A&P Assessment and plan (1) Hydronephrosis: Status: Acute (2) Ureteric stone: Status: Acute Plan Penile duplex ultrasound for examination Time Spent With Patient Time: Total time spent is greater than 50% in coordination of care (as documented) at patient's floor/unit and/or counseling patient: Progress Note: Quality Stroke Does the patient have a stroke diagnosis?: No
[2021-09-13] MEDS: levoFLOXacin/D5W 250 MG/50 ML PIGGYBACK 50 MG IV (14:27)
--- NOTE | 2021-09-13 14:57 | MHC.CM.PN ---
Per Rounds discussion, Patient is not yet medically cleared for dc r/t slowly resolving Urosepsis (iv Levaquin).STR continues to be the goal for dc and CM will continue to follow.
--- NOTE | 2021-09-13 14:59 | HO.PM.IMPN ---
Subjective Subjective Date of Service: 09/13/21 Interval History: the patient was seen and evaluated this morning Laying in bed, feels comfortable Overall Minimal amount of bleeding around the catheter No reported other overnight events. Review of Systems Review of Systems: Yes Unobtainable due to mental status Physical Exam Vital Signs: Vital Signs: Last Vital Signs Temp 98.6 F 09/13/21 11:57 Pulse 84 09/13/21 11:57 Resp 20 09/13/21 11:57 BP 118/58 L 09/13/21 11:57 Pulse Ox 97 09/13/21 11:57 O2 Del Method 09/13/21 11:57 O2 Flow Rate 3 09/13/21 08:00 Oxygen Flow Rate 5 09/07/21 01:41 BMI result Body Mass Index 26.9 Const: Other: Constitutional : Alert with stimulation, not in distress Neck : Normal inspection, Supple Cardiovascular : RRR, no JVP, no lower extremity edema Respiratory : fair bilateral air entry, no crackles, wheezes or rhonchi Gastrointestinal: soft, lax, Normal bowel sounds, Non tender Skin : Warm, Dry Neurological : Alert with stimulation, difficult to assess orientation, No focal deficit Objective Data Active Medications Acetaminophen (Acetaminophen 325 Mg Tablet) 650 mg PO Q6H PRN PRN Reason: Pain, Mild (Pain Scale 1-3) Atorvastatin Calcium (Atorvastatin Calcium 40 Mg Tablet) 40 mg PO BEDTIME [facility] Last Admin: 09/13/21 00:31 Dose: Not Given Documented By: ALDO Non-Admin Reason: NPO Heparin Sodium (Porcine) (Heparin Sodium,Porcine 5,000 Unit/Ml Vial) 5,000 unit SUBCUT Q8H [facility] Last Admin: 09/13/21 07:59 Dose: 5,000 unit Documented By: CIARA-NAYELI Levofloxacin (Levaquin) 250 mg in 50 mls @ 50 mls/hr IV Q24H [facility] Last Admin: 09/13/21 14:27 Dose: 50 mls/hr Documented By: CIARA-NAYELI Dextrose (D5w) 1,000 mls @ 80 mls/hr IVCONT .[id number] [facility] Last Infusion: 09/13/21 09:24 Dose: 80 mls/hr Documented By: CIARA-SOFMIRZA Metoprolol Succinate (Metoprolol Succinate Er 100 Mg Tab.Er.24h) 100 mg PO DAILY [facility]; Protocol Last Admin: 09/13/21 07:58 Dose: 100 mg Documented By: KAREN Moxifloxacin HCl (Moxifloxacin Hcl 0.5 % Oph Krystal 3 Ml Drpbtl) 1 drop EYE-BOTH TID [facility] Stop: 09/19/21 17:13 Last Admin: 09/13/21 14:27 Dose: 1 drop Documented By: KAREN Omeprazole (Omeprazole 20 Mg Capsule.Dr) 20 mg PO DAILY@0630 [facility] Last Admin: 09/13/21 06:21 Dose: Not Given Documented By: ALDO Non-Admin Reason: NPO Ondansetron HCl (Ondansetron Hcl 4 Mg/2 Ml Vial) 4 mg IVPUSH Q8H PRN PRN Reason: Nausea Labs CBC & Chem 7: 09/13/21 06:32 09/13/21 06:32 Labs: Laboratory Results - last 24 hr 09/08/21 09/13/21 09/13/21 16:33 06:32 06:32 MCV 89.2 MCH 28.9 MCHC 32.4 RDW 17.6 H Plt Count 172 D MPV 11.0 Absolute Nucleated RBC 0.000 Nucleated RBC % (auto) 0.0 PT 16.0 H INR 1.4 H Anion Gap Estim Creat Clear Calc Estimated GFR Fasting Glucose Calcium Total Bilirubin Direct Bilirubin AST ALT Alkaline Phosphatase Total Protein Albumin Haloperidol 1 L 09/13/21 06:32 MCV MCH MCHC RDW Plt Count MPV Absolute Nucleated RBC Nucleated RBC % (auto) PT INR Anion Gap 13 Estim Creat Clear Calc 43.8 Estimated GFR 52 Fasting Glucose 175 H Calcium 8.3 L Total Bilirubin 2.7 H Direct Bilirubin 1.4 H AST 128 H ALT 82 H Alkaline Phosphatase 115 D Total Protein 6.2 L Albumin 2.6 L Haloperidol Microbiology Microbiology Results: Microbiology 09/08/21 05:41 Blood Culture - Final Blood - Venous No growth after 5 days. 09/08/21 05:40 Blood Culture - Final Blood - Venous No growth after 5 days. 09/07/21 02:24 Blood Culture - Preliminary Blood - Venous Proteus vulgaris Group G streptococcus Assessment and Plan (1) Hypernatremia: Status: Acute (2) Sepsis: Status: Acute (3) Bacteremia: Status: Acute Plan 81-year-old gentleman with past medical history of hypertension hyperlipidemia has not seen a primary care physician in last several years but has been receiving his medications through pharmacy on metoprolol, Crestor and lisinopril was brought into [facility] by paramedics due to confusion and difficulty in urination acute septic shock , resolved due to stone obstruction/UTI/ pneumonia polymicrobial bacteremia blood cultures x2 polymicrobial on levaquin ID consult following Phimosis Post op and penile 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, mri pelvis done, report pending Urology following , check Doppler ultrasound for possible clot hypernatremia Sodium improved to 141 decrease d5w to 80cc/hr, monitor BMP acute encephalopathy improving likely due to acute infection no prior history of underlying dementia has not seen a physician in several years treat infection follow clinical course acute hypoxic respiratory failure resolved likely due to pneumonia/CHF acute renal failure likely due to infection/pre renal /obstructive uropathy with calculi, left UVJ stone with mild left hydronephrosis imprvoing acute diastolic congestive heart failure echo showed EF 55-60% impaired relaxation, s/p IV diuretic,- 4 liters elevated troponin troponin trending down, patient denies chest pain echo as above, EKG showed T-wave inversion inferior lateral lead will obtain repeat EKG, not a candidate for aggressive treatment since noted to have hematuria resume statins and beta-joey elevated LFTs likely secondary to sepsis,hepatitis serology nonreactive resolving thrombocytopenia question secondary to sepsis,monitor, resolving hematuria resolving DVT prophylaxis with compression boots due to hematuria will avoid anticoagulant. reason for continued hospitalizationFor management of hematuria and monitoring his sodium level to prevent possible decompensation into acute anemia and hypernatremia. Quality Stroke Does the patient have a stroke diagnosis?: No VTE Prior VTE?: Yes VTE Risk Level:: Medical - moderate - high VTE Device Contraindication: N/A - Device Ordered VTE Drug Contraindication: N/A - Med Ordered
[2021-09-13 15:26] VITALS: BP 125/64; PULSE 79; RESP 14; TEMP 36.5; O2SAT 96
--- NOTE | 2021-09-13 15:49 | PC.NURSE ---
visitors at bedside including pt's brother. pt bathed this shift. central line dressing change performed.
[2021-09-13] MEDS: Dextrose 5 % 1,000 ML 80 ML IVCONT ×2 (16:18→18:29)
[2021-09-13 19:48] VITALS: BP 101/54; PULSE 82; RESP 16; TEMP 36.7; O2SAT 96
[2021-09-13] MEDS: Atorvastatin Calcium 40 MG TABLET PO (21:08)
[2021-09-14] VITALS (7 sets, daily range): BP systolic 97–147; BP diastolic 51–77; PULSE 74–88; RESP 15–18; TEMP 36.7–37.3; O2SAT 93–97
[2021-09-14] MEDS: Heparin Sodium,Porcine 5,000 UNIT/ML VIAL 5000 UNIT SUBCUT (01:33)
[2021-09-14] MEDS: Omeprazole 20 MG CAPSULE.DR PO (06:26)
[2021-09-14] MEDS: Dextrose 5 % 1,000 ML 80 ML IVCONT (06:28)
[2021-09-14 07:10] LABS: Hematocrit 32.7 % (42.0-52.0); Hemoglobin 10.6 g/dl (14.0-18.0); Mean Corpuscular HGB Conc 32.4 g/dl (31.0-36.0); Mean Corpuscular Hemoglobin 28.4 pg (27.0-33.0); Mean Corpuscular Volume 87.7 fL (80.0-98.0); Mean Platelet Volume 10.5 fL (9.4-12.4); Platelet Count 234 X10*3/uL (160-400); Red Blood Count 3.73 X10*6/uL (4.60-5.80); Red Cell Distribution Width 17.2 % (11.0-16.0)
[2021-09-14 07:39] LABS: Anion Gap 10 (12-20); Blood Urea Nitrogen 42 mg/dL (9-16); Calcium 8.5 mg/dL (8.4-10.2); Carbon Dioxide 23 mmol/L (22-29); Chloride 107 mmol/L (96-108); Creatinine Clr Calc Pharmacy 44.9; Estimated Glomerular Filt Rate 53; Glucose Random 149 mg/dL (60-115); Potassium 3.9 mmol/L (3.3-5.1); Sodium 136 mmol/L (135-145)
[2021-09-14] MEDS: Metoprolol Succinate ER 100 MG TAB.ER.24H PO (08:25)
[2021-09-14] MEDS: Moxifloxacin HCl 0.5 % Oph Sol 3 ML DRPBTL 1 DROP EYE-BOTH ×3 (08:25→20:10)
[2021-09-14 09:15] LABS: Prostate Specific Antigen 11.15 ng/mL (<0.05-4.0)
[2021-09-14] MEDS: Enoxaparin Sodium 80 MG/0.8 ML SYRINGE SUBCUT ×2 (10:20→20:03)
[2021-09-14 12:01] LABS: IgA 277 mg/dL (70-320); IgG 1540 mg/dL (600-1540); IgM 63 mg/dL (50-300)
[2021-09-14 13:26] LABS: ADAMTS13 Activity 0.65 IU/mL (0.68-1.63)
--- NOTE | 2021-09-14 15:29 | P.PNIM_ITS ---
Subjective Subjective Date of Service: 09/14/21 Interval History: the patient was seen and evaluated this morning Laying in bed, feels comfortable Overall but generally tired Doppler confirmed possible clot in his corpora Minimal amount of bleeding around the catheter No reported other overnight events. Review of Systems No fever, chills but reports generalized weakness No chest pain, palpitation No shortness of breath or coughing No abdominal pain, nausea or vomiting No urinary symptoms No any rash or wounds Physical Exam Vital Signs: Vital Signs: Last Vital Signs Temp 98.6 F 09/14/21 11:51 Pulse 79 09/14/21 11:51 Resp 18 09/14/21 11:51 BP 97/51 L 09/14/21 11:51 Pulse Ox 96 09/14/21 11:51 O2 Del Method 09/14/21 11:51 O2 Flow Rate 3 09/13/21 08:00 Oxygen Flow Rate 5 09/07/21 01:41 BMI result Body Mass Index 26.9 Const: Other: Constitutional : Alert with stimulation, not in distress Neck : Normal inspection, Supple Cardiovascular : RRR, no JVP, no lower extremity edema Respiratory : fair bilateral air entry, no crackles, wheezes or rhonchi Gastrointestinal: soft, lax, Normal bowel sounds, Non tender Skin : Warm, Dry Neurological : Alert with stimulation, difficult to assess orientation but overall confused, very weak, No focal deficit Objective Data Active Medications Acetaminophen (Acetaminophen 325 Mg Tablet) 650 mg PO Q6H PRN PRN Reason: Pain, Mild (Pain Scale 1-3) Atorvastatin Calcium (Atorvastatin Calcium 40 Mg Tablet) 40 mg PO BEDTIME [facility] Last Admin: 09/13/21 21:08 Dose: 40 mg Documented By: PENNY Enoxaparin Sodium (Enoxaparin Sodium 80 Mg/0.8 Ml Syringe) 80 mg 1 mg/kg (80 mg) SUBCUT Q12H [facility] Last Admin: 09/14/21 10:20 Dose: 80 mg Documented By: SHANNAN Levofloxacin (Levaquin) 250 mg in 50 mls @ 50 mls/hr IV Q24H [facility] Last Infusion: 09/13/21 15:33 Dose: 0 mls/hr Documented By: N-SOFFA Metoprolol Succinate (Metoprolol Succinate Er 100 Mg Tab.Er.24h) 100 mg PO DAILY [facility]; Protocol Last Admin: 09/14/21 08:25 Dose: 100 mg Documented By: SHANNAN Moxifloxacin HCl (Moxifloxacin Hcl 0.5 % Oph Krystal 3 Ml Drpbtl) 1 drop EYE-BOTH TID [facility] Stop: 09/19/21 17:13 Last Admin: 09/14/21 08:25 Dose: 1 drop Documented By: SHANNAN Omeprazole (Omeprazole 20 Mg Capsule.Dr) 20 mg PO DAILY@0630 [facility] Last Admin: 09/14/21 06:26 Dose: 20 mg Documented By: LUIS M Ondansetron HCl (Ondansetron Hcl 4 Mg/2 Ml Vial) 4 mg IVPUSH Q8H PRN PRN Reason: Nausea Labs CBC & Chem 7: 09/14/21 06:36 09/14/21 06:36 Labs: Laboratory Results - last 24 hr 09/09/21 09/11/21 09/14/21 07:15 06:20 06:36 MCV 87.7 MCH 28.4 MCHC 32.4 RDW 17.2 H Plt Count 234 D MPV 10.5 Absolute Nucleated RBC 0.000 Nucleated RBC % (auto) 0.0 [id number] Activity Intrp 0.65 L Anion Gap Estim Creat Clear Calc Estimated GFR Random Glucose Calcium Prostate Specific Ag IgG Total 1540 IgA Total 277 IgM 63 LUIS ALFREDO Interpretation SEE NOTE 09/14/21 06:36 MCV MCH MCHC RDW Plt Count MPV Absolute Nucleated RBC Nucleated RBC % (auto) [id number] Activity Intrp Anion Gap 10 L Estim Creat Clear Calc 44.9 Estimated GFR 53 Random Glucose 149 H Calcium 8.5 Prostate Specific Ag 11.15 H IgG Total IgA Total IgM LUIS ALFREDO Interpretation Microbiology Microbiology Results: Microbiology 09/07/21 02:24 Blood Culture - Preliminary Blood - Venous Proteus vulgaris Group G streptococcus Gram negative larissa Assessment and Plan (1) Bacteremia: Status: Acute (2) Hypernatremia: Status: Acute (3) Penile mass: Status: Acute (4) Acute encephalopathy: Status: Acute Plan 81-year-old gentleman with past medical history of hypertension hyperlipidemia has not seen a primary care physician in last several years but has been re ceiving his medications through pharmacy on metoprolol, Crestor and lisinopril was brought into [facility] by paramedics due to confusion and difficulty in urination septic shock , resolved due to stone obstruction/UTI/ pneumonia polymicrobial bacteremia blood cultures x2 polymicrobial on levaquin ID consult following Phimosis Post op and penile 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, mri pelvis done, report a mass Urology following , corpora cavernosa clot Doppler ultrasound showing possible clot within left corpora cavernosa started on Lovenox full dose hypernatremia Sodium improved to 136 DC IVF monitor BMP acute toxic-metabolic encephalopathy improving likely due to acute infection no prior history of underlying dementia has not seen a physician in several years treat infection follow clinical course acute hypoxic respiratory failure resolved likely due to pneumonia/CHF acute renal failure likely due to infection/pre renal /obstructive uropathy with calculi, left UVJ stone with mild left hydronephrosis imprvoing acute diastolic congestive heart failure echo showed EF 55-60% impaired relaxation, s/p IV diuretic,- 4 liters elevated troponin troponin trending down, patient denies chest pain echo as above, EKG showed T-wave inversion inferior lateral lead, Repeat EKG, not a candidate for aggressive treatment since noted to have hematuria resume statins and beta-joey elevated LFTs likely secondary to sepsis,hepatitis serology nonreactive resolving thrombocytopenia question secondary to sepsis,monitor, resolving hematuria resolving DVT prophylaxis with compression boots due to hematuria will avoid anticoagulant. reason for continued hospitalization For management of hematuria and monitoring his sodium level to prevent possible decompensation into acute anemia and hypernatremia. Quality Stroke Does the patient have a stroke diagnosis?: No VTE Prior VTE?: Yes VTE Risk Level:: Medical - moderate - high VTE Device Contraindication: N/A - Device Ordered VTE Drug Contraindication: N/A - Med Ordered
[2021-09-14] MEDS: levoFLOXacin/D5W 250 MG/50 ML PIGGYBACK 50 MG IV (15:51)
[2021-09-14] MEDS: Atorvastatin Calcium 40 MG TABLET PO (20:03)
[2021-09-15] VITALS: BP 120/60; PULSE 75; RESP 20; TEMP 36.9; O2SAT 98
[2021-09-15 06:47] LABS: Hematocrit 31.2 % (42.0-52.0); Hemoglobin 10.3 g/dl (14.0-18.0); Mean Corpuscular Hemoglobin 28.9 pg (27.0-33.0); Mean Corpuscular Volume 87.4 fL (80.0-98.0); Mean Platelet Volume 10.2 fL (9.4-12.4); Platelet Count 297 X10*3/uL (160-400); Red Blood Count 3.57 X10*6/uL (4.60-5.80); Red Cell Distribution Width 17.2 % (11.0-16.0); White Blood Count 10.1 X10*3/uL (4.8-10.8)
[2021-09-15 07:00] LABS: Anion Gap 11 (12-20); Blood Urea Nitrogen 48 mg/dL (9-16); Calcium 8.7 mg/dL (8.4-10.2); Carbon Dioxide 22 mmol/L (22-29); Chloride 107 mmol/L (96-108); Creatinine Clr Calc Pharmacy 41.3; Estimated Glomerular Filt Rate 49; Glucose Random 111 mg/dL (60-115); Potassium 4.1 mmol/L (3.3-5.1); Sodium 136 mmol/L (135-145)
[2021-09-15 08:00] VITALS: BP 110/52; PULSE 81; RESP 18; TEMP 36.7; O2SAT 96
[2021-09-15] MEDS: Enoxaparin Sodium 80 MG/0.8 ML SYRINGE SUBCUT ×2 (10:26→22:25)
[2021-09-15] MEDS: Metoprolol Succinate ER 100 MG TAB.ER.24H PO (10:27)
[2021-09-15] MEDS: Moxifloxacin HCl 0.5 % Oph Sol 3 ML DRPBTL 1 DROP EYE-BOTH ×3 (10:30→22:26)
[2021-09-15 12:00] VITALS: BP 99/55; PULSE 74; RESP 19; TEMP 36.4; O2SAT 96
[2021-09-15] MEDS: levoFLOXacin/D5W 250 MG/50 ML PIGGYBACK 50 MG IV (14:11)
--- NOTE | 2021-09-15 14:25 | P.PNIM_ITS ---
Subjective Subjective Date of Service: 09/15/21 Interval History: The patient was seen and evaluated this morning Laying in bed, feels comfortable Overall but generally tired no bleeding around the catheter No reported other overnight events. Review of Systems No fever, chills but reports generalized weakness No chest pain, palpitation No shortness of breath or coughing No abdominal pain, nausea or vomiting No urinary symptoms No any rash or wounds Physical Exam Vital Signs: Vital Signs: Last Vital Signs Temp 97.6 F 09/15/21 12:00 Pulse 74 09/15/21 12:00 Resp 19 09/15/21 12:00 BP 99/55 L 09/15/21 12:00 Pulse Ox 96 09/15/21 12:00 O2 Del Method 09/15/21 12:00 O2 Flow Rate 3 09/13/21 08:00 Oxygen Flow Rate 5 09/07/21 01:41 BMI result Body Mass Index 26.9 Const: Other: Constitutional : Alert with stimulation, not in distress Neck : Normal inspection, Supple Cardiovascular : RRR, no JVP, no lower extremity edema Respiratory : fair bilateral air entry, no crackles, wheezes or rhonchi Gastrointestinal: soft, lax, Normal bowel sounds, Non tender Skin : Warm, Dry Neurological : Alert with stimulation, difficult to assess orientation but overall confused, very weak, No focal deficit Objective Data Active Medications Acetaminophen (Acetaminophen 325 Mg Tablet) 650 mg PO Q6H PRN PRN Reason: Pain, Mild (Pain Scale 1-3) Atorvastatin Calcium (Atorvastatin Calcium 40 Mg Tablet) 40 mg PO BEDTIME [facility] Last Admin: 09/14/21 20:03 Dose: 40 mg Documented By: ISA Enoxaparin Sodium (Enoxaparin Sodium 80 Mg/0.8 Ml Syringe) 80 mg 1 mg/kg (80 mg) SUBCUT Q12H [facility] Last Admin: 09/15/21 10:26 Dose: 80 mg Documented By: MICHAELA Metoprolol Succinate (Metoprolol Succinate Er 100 Mg Tab.Er.24h) 100 mg PO DAILY [facility]; Protocol Last Admin: 09/15/21 10:27 Dose: 100 mg Documented By: MICHAELA Moxifloxacin HCl (Moxifloxacin Hcl 0.5 % Oph Krystal 3 Ml Drpbtl) 1 drop EYE-BOTH TID [facility] Stop: 09/19/21 17:13 Last Admin: 09/15/21 14:12 Dose: 1 drop Documented By: MICHAELA Omeprazole (Omeprazole 20 Mg Capsule.Dr) 20 mg PO DAILY@0630 [facility] Last Admin: 09/15/21 06:46 Dose: Not Given Documented By: ISA Non-Admin Reason: Patient Refused Ondansetron HCl (Ondansetron Hcl 4 Mg/2 Ml Vial) 4 mg IVPUSH Q8H PRN PRN Reason: Nausea Labs CBC & Chem 7: 09/15/21 06:21 09/15/21 06:21 Labs: Laboratory Results - last 24 hr 09/15/21 09/15/21 06:21 06:21 MCV 87.4 MCH 28.9 MCHC 33.0 RDW 17.2 H Plt Count 297 D MPV 10.2 Absolute Nucleated RBC 0.000 Nucleated RBC % (auto) 0.0 Anion Gap 11 L Estim Creat Clear Calc 41.3 Estimated GFR 49 Random Glucose 111 Calcium 8.7 Assessment and Plan (1) Penile mass: Status: Acute (2) Bacteremia: Status: Acute (3) Hypernatremia: Status: Acute (4) Acute encephalopathy: Status: Acute (5) Acute UTI: Status: Acute Plan 81-year-old gentleman with past medical history of hypertension hyperlipidemia has not seen a primary care physician in last several years but has been receiving his medications through pharmacy on metoprolol, Crestor and lisinopril was brought into [facility] by paramedics due to confusion and difficulty in urination septic shock , resolved polymicrobial bacteremia due to stone obstruction/UTI/ pneumonia blood cultures x2 polymicrobial on levaquin ID consult Pending following Phimosis Post op and penile 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, mri pelvis done, report a mass benign biopsy negative for any cancer Urology following , corpora cavernosa clot Doppler ultrasound showing possible clot within left corpora cavernosa started on Lovenox full dose started September 14 hypernatremia Sodium improved to 136 DC IVF monitor BMP acute toxic-metabolic encephalopathy fluctuating likely due to acute infection, delirium no prior history of underlying dementia has not seen a physician in several years treat infection follow clinical course acute hypoxic respiratory failure resolved likely due to pneumonia/CHF acute renal failure likely due to infection/pre renal /obstructive uropathy with calculi, left UVJ stone with mild left hydronephrosis improved acute diastolic congestive heart failure echo showed EF 55-60% impaired relaxation, s/p IV diuretic,- 4 liters elevated troponin troponin trending down, patient denies chest pain echo as above, EKG showed T-wave inversion inferior lateral lead, Repeat EKG, not a candidate for aggressive treatment since noted to have hematuria resume statins and beta-joey elevated LFTs likely secondary to sepsis,hepatitis serology nonreactive resolving thrombocytopenia question secondary to sepsis,monitor, resolving hematuria resolving DVT prophylaxis with compression boots due to hematuria will avoid anticoagulant. reason for continued hospitalization For management of encephalopathy, bacteremia to prevent possible decompensation into acute anemia and hypernatremia. Quality Stroke Does the patient have a stroke diagnosis?: No VTE Prior VTE?: Yes VTE Risk Level:: Medical - moderate - high VTE Device Contraindication: N/A - Device Ordered VTE Drug Contraindication: N/A - Med Ordered
--- NOTE | 2021-09-15 15:02 | MHC.CM.PN ---
PER ROUNDS discussion, Patient is not yet medically cleared for dc r/t Encephalopathy and Bacteremia.There is a broad SNF search under way. CM will follow.
[2021-09-15 15:27] VITALS: BP 101/55; PULSE 82; RESP 16; TEMP 37.2; O2SAT 95
[2021-09-15 20:00] VITALS: BP 108/60; PULSE 78; RESP 18; TEMP 37.2; O2SAT 96
[2021-09-15] MEDS: Atorvastatin Calcium 40 MG TABLET PO (22:25)
[2021-09-15 23:46] VITALS: BP 126/62; PULSE 75; RESP 19; TEMP 37.2; O2SAT 96
[2021-09-16 03:41] VITALS: BP 126/62; PULSE 79; RESP 15; TEMP 36.7; O2SAT 96
[2021-09-16] MEDS: Omeprazole 20 MG CAPSULE.DR PO (05:47)
[2021-09-16 06:10] LABS: Anion Gap 10 (12-20); Blood Urea Nitrogen 48 mg/dL (9-16); Calcium 8.8 mg/dL (8.4-10.2); Carbon Dioxide 23 mmol/L (22-29); Chloride 110 mmol/L (96-108); Creatinine Clr Calc Pharmacy 38.3; Estimated Glomerular Filt Rate 45; Glucose Random 151 mg/dL (60-115); Potassium 4.1 mmol/L (3.3-5.1); Sodium 139 mmol/L (135-145)
[2021-09-16 08:00] VITALS: BP 135/72; PULSE 74; RESP 18; TEMP 37.1; O2SAT 96
[2021-09-16] MEDS: Moxifloxacin HCl 0.5 % Oph Sol 3 ML DRPBTL 1 DROP EYE-BOTH ×3 (10:06→20:52)
[2021-09-16] MEDS: Enoxaparin Sodium 80 MG/0.8 ML SYRINGE SUBCUT ×2 (10:07→20:47)
[2021-09-16] MEDS: Metoprolol Succinate ER 100 MG TAB.ER.24H PO (10:07)
[2021-09-16 11:30] VITALS: BP 119/56; PULSE 80; RESP 20; TEMP 36.8; O2SAT 96
--- NOTE | 2021-09-16 12:07 | HO.PM.IMPN ---
Subjective Subjective Date of Service: 09/16/21 Interval History: The patient was seen and evaluated this morning Laying in bed, feels mildly better Overall but generally tired no bleeding around the catheter No reported other overnight events. Review of Systems No fever, chills but reports generalized weakness No chest pain, palpitation No shortness of breath or coughing No abdominal pain, nausea or vomiting No urinary symptoms No any rash or wounds Physical Exam Vital Signs: Vital Signs: Last Vital Signs Temp 98.3 F 09/16/21 11:30 Pulse 80 09/16/21 11:30 Resp 20 09/16/21 11:30 BP 119/56 L 09/16/21 11:30 Pulse Ox 96 09/16/21 11:30 O2 Del Method 09/16/21 11:30 O2 Flow Rate 3 09/13/21 08:00 Oxygen Flow Rate 5 09/07/21 01:41 BMI result Body Mass Index 26.9 Const: Other: Constitutional : Alert with stimulation, not in distress Neck : Normal inspection, Supple Cardiovascular : RRR, no JVP, no lower extremity edema Respiratory : fair bilateral air entry, no crackles, wheezes or rhonchi Gastrointestinal: soft, lax, Normal bowel sounds, Non tender Skin : Warm, Dry Neurological : Alert with stimulation, oriented to self and time only, very weak, No focal deficit Objective Data Active Medications Acetaminophen (Acetaminophen 325 Mg Tablet) 650 mg PO Q6H PRN PRN Reason: Pain, Mild (Pain Scale 1-3) Atorvastatin Calcium (Atorvastatin Calcium 40 Mg Tablet) 40 mg PO BEDTIME [facility] Last Admin: 09/15/21 22:25 Dose: 40 mg Documented By: ALDO Enoxaparin Sodium (Enoxaparin Sodium 80 Mg/0.8 Ml Syringe) 80 mg 1 mg/kg (80 mg) SUBCUT Q12H [facility] Last Admin: 09/16/21 10:07 Dose: 80 mg Documented By: TRISTAN Metoprolol Succinate (Metoprolol Succinate Er 100 Mg Tab.Er.24h) 100 mg PO DAILY [facility]; Protocol Last Admin: 09/16/21 10:07 Dose: 100 mg Documented By: TRISTAN Moxifloxacin HCl (Moxifloxacin Hcl 0.5 % Oph Krystal 3 Ml Drpbtl) 1 drop EYE-BOTH TID [facility] Stop: 09/19/21 17:13 Last Admin: 09/16/21 10:06 Dose: 1 drop Documented By: TRISTAN Omeprazole (Omeprazole 20 Mg Capsule.) 20 mg PO DAILY@30 [facility] Last Admin: 09/16/21 05:47 Dose: 20 mg Documented By: CORTNEY Ondansetron HCl (Ondansetron Hcl 4 Mg/2 Ml Vial) 4 mg IVPUSH Q8H PRN PRN Reason: Nausea Labs CBC & Chem 7: 09/15/21 06:21 09/16/21 05:37 Labs: Laboratory Results - last 24 hr 09/16/21 05:37 Anion Gap 10 L Estim Creat Clear Calc 38.3 Estimated GFR 45 Random Glucose 151 H D Calcium 8.8 Assessment and Plan (1) Penile mass: Status: Acute (2) Bacteremia: Status: Acute (3) Acute encephalopathy: Status: Acute Plan 81-year-old gentleman with past medical history of hypertension hyperlipidemia has not seen a primary care physician in last several years but has been receiving his medications through pharmacy on metoprolol, Crestor and lisinopril was brought into [facility] by paramedics due to confusion and difficulty in urination polymicrobial bacteremia due to stone obstruction/UTI/ pneumonia blood cultures x2 polymicrobial on levaquin ID input appreciated, continue Levaquin following Phimosis Penile mass Post op and penile 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, mri pelvis Showing mass with lymphadenopathy benign biopsy negative for any cancer IR to Do biopsy on lymphadenopathy on Saturday Urology following , keep the catheter own at time of discharge corpora cavernosa clot Doppler ultrasound showing possible clot within left corpora cavernosa started on Lovenox full dose started September 14 hypernatremia Sodium improved to 136 DC IVF monitor BMP acute toxic-metabolic encephalopathy fluctuating likely due to acute infection, delirium no prior history of underlying dementia has not seen a physician in several years treat infection follow clinical course recurrent orientation, increase physical activity acute renal failure likely due to infection/pre renal /obstructive uropathy with calculi, left UVJ stone with mild left hydronephrosis improved acute diastolic congestive heart failure echo showed EF 55-60% impaired relaxation s/p IV diuretic EKG showed T-wave inversion inferior lateral lead, Repeat EKG, No chest pain, troponin trended down resume statins and beta-joey elevated LFTs likely secondary to sepsis,hepatitis serology nonreactive resolving thrombocytopenia question secondary to sepsis,monitor, resolving hematuria resolving DVT prophylaxis with compression boots due to hematuria will avoid anticoagulant. reason for continued hospitalization For management of encephalopathy, bacteremia and Penile mass for further evaluation to prevent possible decompensation in to sepsis Quality Stroke Does the patient have a stroke diagnosis?: No VTE Prior VTE?: Yes VTE Risk Level:: Medical - moderate - high VTE Device Contraindication: N/A - Device Ordered VTE Drug Contraindication: N/A - Med Ordered
[2021-09-16 16:00] VITALS: BP 96/60; PULSE 81; RESP 16; TEMP 36.7; O2SAT 97
[2021-09-16 20:00] VITALS: BP 120/56; PULSE 73; RESP 18; TEMP 37; O2SAT 97
[2021-09-16] MEDS: Atorvastatin Calcium 40 MG TABLET PO (20:49)
[2021-09-17] VITALS (7 sets, daily range): BP systolic 90–116; BP diastolic 50–58; PULSE 66–76; RESP 17–20; TEMP 36.1–36.9; O2SAT 96–98; BMI 27.1
[2021-09-17 05:52] LABS: Hematocrit 31.4 % (42.0-52.0); Hemoglobin 10.1 g/dl (14.0-18.0); Mean Corpuscular HGB Conc 32.2 g/dl (31.0-36.0); Mean Corpuscular Hemoglobin 28.3 pg (27.0-33.0); Mean Platelet Volume 9.8 fL (9.4-12.4); Platelet Count 417 X10*3/uL (160-400); Red Blood Count 3.57 X10*6/uL (4.60-5.80); Red Cell Distribution Width 16.7 % (11.0-16.0); White Blood Count 6.2 X10*3/uL (4.8-10.8)
[2021-09-17 06:11] LABS: Anion Gap 11 (12-20); Blood Urea Nitrogen 48 mg/dL (9-16); Calcium 8.7 mg/dL (8.4-10.2); Carbon Dioxide 22 mmol/L (22-29); Chloride 107 mmol/L (96-108); Creatinine Clr Calc Pharmacy 40.7; Estimated Glomerular Filt Rate 48; Glucose Random 120 mg/dL (60-115); Potassium 4.1 mmol/L (3.3-5.1); Sodium 136 mmol/L (135-145)
[2021-09-17] MEDS: Omeprazole 20 MG CAPSULE.DR PO (06:28)
[2021-09-17 08:10] LABS: Alanine Aminotransferase 80 U/L (0-40); Albumin Level 2.5 g/dL (3.5-5.0); Alkaline Phosphatase 119 U/L (39-117); Aspartate Amino Transferase 67 U/L (5-37); Bilirubin Direct 0.6 mg/dL (0.0-0.5); Bilirubin Total 1.6 mg/dL (0.0-1.0); Total Protein 6.3 g/dL (6.5-8.0)
[2021-09-17] MEDS: Metoprolol Succinate ER 100 MG TAB.ER.24H PO (10:07)
[2021-09-17] MEDS: Enoxaparin Sodium 80 MG/0.8 ML SYRINGE SUBCUT ×2 (10:07→20:15)
--- NOTE | 2021-09-17 11:59 | P.PNIM_ITS ---
Subjective Subjective Date of Service: 09/17/21 Interval History: The patient was seen and evaluated this morning Laying in bed, more alert and interactive Overall but generally tired no bleeding around the catheter No reported other overnight events. Review of Systems No fever, chills but reports generalized weakness No chest pain, palpitation No shortness of breath or coughing No abdominal pain, nausea or vomiting No urinary symptoms No any rash or wounds Physical Exam Vital Signs: Vital Signs: Last Vital Signs Temp 98.1 F 09/17/21 08:00 Pulse 74 09/17/21 08:00 Resp 20 09/17/21 08:00 BP 112/58 L 09/17/21 08:00 Pulse Ox 96 09/17/21 08:00 O2 Del Method 09/17/21 08:00 O2 Flow Rate 3 09/13/21 08:00 Oxygen Flow Rate 5 09/07/21 01:41 BMI result Body Mass Index 26.9 Const: Other: Constitutional : Alert with stimulation, not in distress Neck : Normal inspection, Supple Cardiovascular : RRR, no JVP, no lower extremity edema Respiratory : fair bilateral air entry, no crackles, wheezes or rhonchi Gastrointestinal: soft, lax, Normal bowel sounds, Non tender Skin : Warm, Dry Neurological : Alert with stimulation, oriented to self and time only, very weak, No focal deficit Objective Data Active Medications Acetaminophen (Acetaminophen 325 Mg Tablet) 650 mg PO Q6H PRN PRN Reason: Pain, Mild (Pain Scale 1-3) Atorvastatin Calcium (Atorvastatin Calcium 40 Mg Tablet) 40 mg PO BEDTIME [facility] Last Admin: 09/16/21 20:49 Dose: 40 mg Documented By: TRISTAN Enoxaparin Sodium (Enoxaparin Sodium 80 Mg/0.8 Ml Syringe) 80 mg 1 mg/kg (80 mg) SUBCUT Q12H [facility] Last Admin: 09/17/21 10:07 Dose: 80 mg Documented By: OSIEL Metoprolol Succinate (Metoprolol Succinate Er 100 Mg Tab.Er.24h) 100 mg PO DAILY [facility]; Protocol Last Admin: 09/17/21 10:07 Dose: 100 mg Documented By: OSIEL Moxifloxacin HCl (Moxifloxacin Hcl 0.5 % Oph Krystal 3 Ml Drpbtl) 1 drop EYE-BOTH TID [facility] Stop: 09/19/21 17:13 Last Admin: 09/16/21 20:52 Dose: 1 drop Documented By: TRISTAN Omeprazole (Omeprazole 20 Mg Capsule.) 20 mg PO DAILY@0630 [facility] Last Admin: 09/17/21 06:28 Dose: 20 mg Documented By: TRISTAN Ondansetron HCl (Ondansetron Hcl 4 Mg/2 Ml Vial) 4 mg IVPUSH Q8H PRN PRN Reason: Nausea Labs CBC & Chem 7: 09/17/21 05:18 09/17/21 05:18 Labs: Laboratory Results - last 24 hr 09/16/21 09/17/21 09/17/21 05:37 05:18 05:18 MCV 88.0 MCH 28.3 MCHC 32.2 RDW 16.7 H Plt Count 417 H D MPV 9.8 Absolute Nucleated RBC 0.000 Nucleated RBC % (auto) 0.0 Anion Gap 11 L Estim Creat Clear Calc 40.7 Estimated GFR 48 Random Glucose 120 H Calcium 8.7 Magnesium 2.0 Total Bilirubin 1.6 H Direct Bilirubin 0.6 H AST 67 H ALT 80 H Alkaline Phosphatase 119 H Total Protein 6.3 L Albumin 2.5 L Assessment and Plan (1) Penile mass: Status: Acute (2) Bacteremia: Status: Acute Plan 81-year-old gentleman with past medical history of hypertension hyperlipidemia has not seen a primary care physician in last several years but has been receiving his medications through pharmacy on metoprolol, Crestor and lisinopril was brought into [facility] by paramedics due to confusion and difficulty in urination polymicrobial bacteremia due to stone obstruction/UTI/ pneumonia blood cultures x2 polymicrobial on levaquin day 8 ID input appreciated, continue Levaquin for 2-3 weeks following Phimosis Penile mass Post op and penile 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, mri pelvis Showing mass with lymphadenopathy benign biopsy negative for any cancer IR to Do biopsy on lymphadenopathy on Saturday Urology following , keep the catheter own at time of discharge corpora cavernosa clot Doppler ultrasound showing possible clot within left corpora cavernosa continue Lovenox full dose started September 14 hypernatremia Sodium improved to 136 DC IVF monitor BMP Acute toxic-metabolic encephalopathy fluctuating< improving likely due to acute infection, hypoactive delirium no prior history of underlying dementia has not seen a physician in several years treat infection follow clinical course recurrent orientation, increase physical activity Acute renal failure likely due to infection/pre renal /obstructive uropathy with calculi, left UVJ stone with mild left hydronephrosis improved Acute diastolic congestive heart failure echo showed EF 55-60% impaired relaxation s/p IV diuretic EKG showed T-wave inversion inferior lateral lead, Repeat EKG, No chest pain, troponin trended down resume statins and beta-joey elevated LFTs likely secondary to sepsis,hepatitis serology nonreactive resolving thrombocytopenia question secondary to sepsis,monitor, resolving hematuria resolving DVT prophylaxis Lovenox reason for continued hospitalization For management of encephalopathy, bacteremia and Penile mass for further evaluation to prevent possible decompensation in to sepsis Quality Stroke Does the patient have a stroke diagnosis?: No VTE Prior VTE?: Yes VTE Risk Level:: Medical - moderate - high VTE Device Contraindication: N/A - Device Ordered VTE Drug Contraindication: N/A - Med Ordered
[2021-09-17] MEDS: levoFLOXacin 250 MG TABLET PO (13:51)
[2021-09-17] MEDS: Moxifloxacin HCl 0.5 % Oph Sol 3 ML DRPBTL 1 DROP EYE-BOTH ×3 (13:51→20:20)
[2021-09-17] MEDS: Atorvastatin Calcium 40 MG TABLET PO (20:15)
[2021-09-18 03:52] VITALS: BP 111/58; PULSE 69; RESP 18; TEMP 36.9; O2SAT 97
[2021-09-18 08:00] VITALS: BP 104/58; PULSE 70; RESP 18; TEMP 36.7; O2SAT 96; BMI 27.1
[2021-09-18] MEDS: Metoprolol Succinate ER 100 MG TAB.ER.24H PO (10:00)
[2021-09-18] MEDS: Moxifloxacin HCl 0.5 % Oph Sol 3 ML DRPBTL 1 DROP EYE-BOTH ×3 (10:59→21:13)
[2021-09-18] MEDS: Enoxaparin Sodium 80 MG/0.8 ML SYRINGE SUBCUT (10:59)
[2021-09-18] MEDS: levoFLOXacin 250 MG TABLET PO (11:09)
[2021-09-18 11:38] VITALS: BP 122/71; PULSE 76; RESP 20; TEMP 36.4; O2SAT 95
--- NOTE | 2021-09-18 12:20 | P.PNIM_ITS ---
Subjective Subjective Date of Service: 09/18/21 Interval History: The patient was seen and evaluated this morning more alert and interactive Overall but generally tired no bleeding around the catheter, urine clear No reported other overnight events. Review of Systems No fever, chills but reports generalized weakness No chest pain, palpitation No shortness of breath or coughing No abdominal pain, nausea or vomiting No urinary symptoms No any rash or wounds Physical Exam Vital Signs: Vital Signs: Last Vital Signs Temp 97.6 F 09/18/21 11:38 Pulse 76 09/18/21 11:38 Resp 20 09/18/21 11:38 BP 122/71 09/18/21 11:38 Pulse Ox 95 09/18/21 11:38 O2 Del Method 09/18/21 11:38 O2 Flow Rate 3 09/13/21 08:00 Oxygen Flow Rate 5 09/07/21 01:41 BMI result Body Mass Index 27.1 Const: Other: Constitutional : Alert with stimulation, not in distress Neck : Normal inspection, Supple Cardiovascular : RRR, no JVP, no lower extremity edema Respiratory : fair bilateral air entry, no crackles, wheezes or rhonchi Gastrointestinal: soft, lax, Normal bowel sounds, Non tender Skin : Warm, Dry Neurological : Alert with stimulation, oriented to self and time only, very weak, No focal deficit Objective Data Active Medications Acetaminophen (Acetaminophen 325 Mg Tablet) 650 mg PO Q6H PRN PRN Reason: Pain, Mild (Pain Scale 1-3) Atorvastatin Calcium (Atorvastatin Calcium 40 Mg Tablet) 40 mg PO BEDTIME [facility] Last Admin: 09/17/21 20:15 Dose: 40 mg Documented By: ISA Enoxaparin Sodium (Enoxaparin Sodium 80 Mg/0.8 Ml Syringe) 80 mg 1 mg/kg (80 mg) SUBCUT Q12H [facility] Last Admin: 09/18/21 10:59 Dose: 80 mg Documented By: BHAVESH Levofloxacin (Levofloxacin 250 Mg Tablet) 250 mg PO Q24H [facility] Last Admin: 09/18/21 11:09 Dose: 250 mg Documented By: BHAVESH Metoprolol Succinate (Metoprolol Succinate Er 100 Mg Tab.Er.24h) 100 mg PO LUISANA TERRY [facility]; Protocol Last Admin: 09/18/21 10:00 Dose: 100 mg Documented By: BHAVESH Moxifloxacin HCl (Moxifloxacin Hcl 0.5 % Oph Krystal 3 Ml Drpbtl) 1 drop EYE-BOTH TID [facility] Stop: 09/19/21 17:13 Last Admin: 09/18/21 10:59 Dose: 1 drop Documented By: BHAVESH Omeprazole (Omeprazole 20 Mg Capsule.Dr) 20 mg PO DAILY@0630 [facility] Last Admin: 09/18/21 05:27 Dose: Not Given Documented By: ISA Non-Admin Reason: Patient Refused Ondansetron HCl (Ondansetron Hcl 4 Mg/2 Ml Vial) 4 mg IVPUSH Q8H PRN PRN Reason: Nausea Labs CBC & Chem 7: 09/17/21 05:18 09/17/21 05:18 Microbiology Microbiology Results: Microbiology 09/07/21 02:24 Blood Culture - Preliminary Blood - Venous Proteus vulgaris Group G streptococcus Morganella morganii Assessment and Plan (1) Penile mass: Status: Acute (2) Bacteremia: Status: Acute Plan 81-year-old gentleman with past medical history of hypertension hyperlipidemia has not seen a primary care physician in last several years but has been receiving his medications through pharmacy on metoprolol, Crestor and lisinopril was [facility] by paramedics due to confusion and difficulty in urination polymicrobial bacteremia due to stone obstruction/UTI/ pneumonia blood cultures x2 polymicrobial on levaquin day 9 ID input appreciated, continue Levaquin for 2-3 weeks following Phimosis Penile mass Post op and penile 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, mri pelvis Showing mass with lymphadenopathy benign biopsy negative for any cancer IR to Do biopsy on lymphadenopathy tomorrow morning Urology following , keep the catheter in at time of discharge corpora cavernosa clot Doppler ultrasound showing possible clot within left corpora cavernosa continue Lovenox full dose started September 14 hypernatremia Sodium improved to 136 DC IVF monitor BMP Acute toxic-metabolic encephalopathy fluctuating< improving likely due to acute infection, hypoactive delirium no prior history of underlying dementia has not seen a physician in several years treat infection follow clinical course recurrent orientation, increase physical activity Acute renal failure likely due to infection/pre renal /obstructive uropathy with calculi, left UVJ stone with mild left hydronephrosis improved Acute diastolic congestive heart failure echo showed EF 55-60% impaired relaxation s/p IV diuretic EKG showed T-wave inversion inferior lateral lead, Repeat EKG, No chest pain, troponin trended down resume statins and beta-joey elevated LFTs likely secondary to sepsis,hepatitis serology nonreactive resolving thrombocytopenia question secondary to sepsis,monitor, resolving hematuria resolving DVT prophylaxis Lovenox, to hold overnight for biopsy reason for continued hospitalization For management of encephalopathy, bacteremia and Penile mass for further evaluation to prevent possible decompensation in to sepsis Quality Stroke Does the patient have a stroke diagnosis?: No VTE Prior VTE?: Yes VTE Risk Level:: Medical - moderate - high VTE Device Contraindication: N/A - Device Ordered VTE Drug Contraindication: N/A - Med Ordered
--- NOTE | 2021-09-18 13:17 | MHC.CLN ---
F/U MEAL INTAKE VARIABLE. DIET=NDD3. PER MD, ENSURE CLEAR TID. SUPPLEMENT PROVIDES ADDITIONAL 720 KCALS, 24 G PROTEIN.
[2021-09-18 16:00] VITALS: BP 104/56; PULSE 76; RESP 16; TEMP 36.7; O2SAT 97
[2021-09-18] MEDS: Acetaminophen 325 MG TABLET 650 MG PO (16:13)
[2021-09-18 20:00] VITALS: BP 90/58; PULSE 70; RESP 18; TEMP 36.4; O2SAT 97
[2021-09-18] MEDS: Atorvastatin Calcium 40 MG TABLET PO (21:12)
[2021-09-18 23:48] VITALS: BP 103/55; PULSE 76; RESP 18; TEMP 36.8; O2SAT 98
[2021-09-19 03:16] VITALS: BP 121/58; PULSE 67; RESP 20; TEMP 36.9; O2SAT 98
[2021-09-19 06:34] LABS: INTERNATIONAL NORM RATIO 1.2 (0.9-1.1)
[2021-09-19] MEDS: Omeprazole 20 MG CAPSULE.DR PO (06:37)
[2021-09-19 06:51] LABS: Anion Gap 10 (12-20); Blood Urea Nitrogen 44 mg/dL (9-16); Calcium 8.7 mg/dL (8.4-10.2); Carbon Dioxide 22 mmol/L (22-29); Chloride 109 mmol/L (96-108); Creatinine Clr Calc Pharmacy 42.9; Estimated Glomerular Filt Rate 51; Glucose Random 119 mg/dL (60-115); Potassium 4.1 mmol/L (3.3-5.1); Sodium 137 mmol/L (135-145)
[2021-09-19 07:41] VITALS: BP 102/58; PULSE 70; RESP 18; TEMP 37.4; O2SAT 98
[2021-09-19 08:00] VITALS: BMI 27.3
[2021-09-19] MEDS: Metoprolol Succinate ER 100 MG TAB.ER.24H PO (09:01)
[2021-09-19] MEDS: Moxifloxacin HCl 0.5 % Oph Sol 3 ML DRPBTL 1 DROP EYE-BOTH ×2 (09:01→13:16)
[2021-09-19 09:31] VITALS: BP 102/58; PULSE 70; O2SAT 98
--- NOTE | 2021-09-19 09:37 | PM.PNNEP ---
Subjective Subjective Date of Service: 09/19/21 Interval history: The patient was seen and evaluated this morning more alert and interactive Overall but generally tired no bleeding around the catheter, urine clear No reported other overnight events. Physical Exam Vital Signs: Vital Signs: Last Vital Signs Temp 99.4 F 09/19/21 07:41 Pulse 70 09/19/21 07:41 Resp 18 09/19/21 07:41 BP 102/58 L 09/19/21 07:41 Pulse Ox 98 09/19/21 07:41 O2 Del Method 09/19/21 07:41 O2 Flow Rate 3 09/13/21 08:00 Oxygen Flow Rate 5 09/07/21 01:41 BMI result Body Mass Index 27.1 Const: General: comfortable and no acute distress HEENT: Head: Yes normal to inspection, Yes normocephalic and Yes atraumatic Eyes: EOM: EOMs intact bilaterally Neck: Neck: Yes supple and Yes no JVD Resp: Effort & Inspection: normal respiratory effort Auscultation: diminished lung sounds Cardio: Jugular venous distension: no JVD Rate: regular rate Rhythm: regular rhythm Heart sounds: S1 normal heart sound present and S2 normal heart sound present GI: Palpation (GI): Soft to palpation Auscultation: normal bowel sounds Neuro: General: moves all extremities Extrem: General: Yes no clubbing, cyanosis or edema Objective Data Labs CBC & Chem 7: 09/17/21 05:18 09/19/21 05:58 Labs: Laboratory Results - last 24 hr 09/19/21 09/19/21 05:58 05:58 PT 14.0 H INR 1.2 H Sodium 137 Potassium 4.1 Chloride 109 H Carbon Dioxide 22 Anion Gap 10 L BUN 44 H Creatinine 1.35 Estim Creat Clear Calc 42.9 Estimated GFR 51 Random Glucose 119 H Calcium 8.7 Microbiology Microbiology Results: Microbiology 09/07/21 02:24 Blood - Venous Blood Culture - Final Proteus vulgaris Group G streptococcus Morganella morganii 09/08/21 05:41 Blood - Venous Blood Culture - Final No growth after 5 days. 09/08/21 05:40 Blood - Venous Blood Culture - Final No growth after 5 days. 09/07/21 02:14 Blood - Venous Blood Culture - Final Morganella morganii ssp derick Group G streptococcus 09/07/21 Unknown Urine Catheterized - Barry Catheter Urine Culture - Final Procedures Date of Service Date of Service: 09/19/21 Assessment & Plan Assessment and plan (1) Acute renal failure: Status: Acute Assessment and Plan: Has CKD 3 at baseline ALETHEA due to obstruction & septic & hemodynamic ATN Cr improving. Had altered autoregulation in the kidney being on ACEI Continue to hold acei/arb, avoidance of IV contrast. Monitor I/O?s Urology following; Continue with FW replacement. s/p Penile biopsy await LN biopsy C/W rest of current supportive care for now; (2) Hydronephrosis: Status: Acute Time Spent With Patient Time: Total time spent is greater than 50% in coordination of care (as documented) at patient's floor/unit and/or counseling patient: Progress Note: Quality Stroke Does the patient have a stroke diagnosis?: No
[2021-09-19] MEDS: Lidocaine HCl 1 % MPF 5 ML VIAL SUBCUT (12:55)
[2021-09-19] MEDS: levoFLOXacin 250 MG TABLET PO (13:13)
[2021-09-19 15:42] VITALS: BP 106/53; PULSE 75; RESP 14; TEMP 36.4; O2SAT 96
--- NOTE | 2021-09-19 15:43 | HO.PM.IMPN ---
Subjective Subjective Date of Service: 09/19/21 Interval History: The patient was seen and evaluated this morning more alert and interactive Plan for lymph node biopsy no bleeding around the catheter, urine clear No reported other overnight events. Review of Systems No fever, chills but reports generalized weakness No chest pain, palpitation No shortness of breath or coughing No abdominal pain, nausea or vomiting No urinary symptoms No any rash or wounds Physical Exam Vital Signs: Vital Signs: Last Vital Signs Temp 99.4 F 09/19/21 07:41 Pulse 70 09/19/21 09:31 Resp 18 09/19/21 07:41 BP 102/58 L 09/19/21 09:31 Pulse Ox 98 09/19/21 09:31 O2 Del Method 09/19/21 07:41 O2 Flow Rate 3 09/13/21 08:00 Oxygen Flow Rate 5 09/07/21 01:41 BMI result Body Mass Index 27.3 Const: Other: Constitutional : Alert with stimulation, not in distress Neck : Normal inspection, Supple Cardiovascular : RRR, no JVP, no lower extremity edema Respiratory : fair bilateral air entry, no crackles, wheezes or rhonchi Gastrointestinal: soft, lax, Normal bowel sounds, Non tender Skin : Warm, Dry Neurological : Alert with stimulation, oriented to self and time only, very weak, No focal deficit Objective Data Active Medications Acetaminophen (Acetaminophen 325 Mg Tablet) 650 mg PO Q6H PRN PRN Reason: Pain, Mild (Pain Scale 1-3) Last Admin: 09/18/21 16:13 Dose: 650 mg Documented By: BHAVESH Atorvastatin Calcium (Atorvastatin Calcium 40 Mg Tablet) 40 mg PO BEDTIME [facility] Last Admin: 09/18/21 21:12 Dose: 40 mg Documented By: TRISTAN Enoxaparin Sodium (Enoxaparin Sodium 80 Mg/0.8 Ml Syringe) 80 mg 1 mg/kg (80 mg) SUBCUT Q12H [facility] Last Admin: 09/18/21 10:59 Dose: 80 mg Documented By: BHAVESH Levofloxacin (Levofloxacin 250 Mg Tablet) 250 mg PO Q24H [facility] Last Admin: 09/19/21 13:13 Dose: 250 mg Documented By: MICHAELA Metoprolol Succinate (Metoprolol Succinate Er 100 Mg Tab.Er.24h) 100 mg PO DAILY [facility]; Protocol Last Admin: 09/19/21 09:01 Dose: 100 mg Documented By: MICHAELA Moxifloxacin HCl (Moxifloxacin Hcl 0.5 % Oph Krystal 3 Ml Drpbtl) 1 drop EYE-BOTH TID [facility] Stop: 09/19/21 17:13 Last Admin: 09/19/21 13:16 Dose: 1 drop Documented By: MICHAELA Omeprazole (Omeprazole 20 Mg Capsule.Dr) 20 mg PO DAILY@0630 [facility] Last Admin: 09/19/21 06:37 Dose: 20 mg Documented By: TRISTAN Ondansetron HCl (Ondansetron Hcl 4 Mg/2 Ml Vial) 4 mg IVPUSH Q8H PRN PRN Reason: Nausea Labs CBC & Chem 7: 09/17/21 05:18 09/19/21 05:58 Labs: Laboratory Results - last 24 hr 09/19/21 09/19/21 05:58 05:58 PT 14.0 H INR 1.2 H Anion Gap 10 L Estim Creat Clear Calc 42.9 Estimated GFR 51 Random Glucose 119 H Calcium 8.7 Microbiology Microbiology Results: Microbiology 09/19/21 12:20 Gram Stain - Final Lymph Node 09/07/21 02:24 Blood Culture - Final Blood - Venous Proteus vulgaris Group G streptococcus Morganella morganii Assessment and Plan (1) Penile mass: Status: Acute (2) Bacteremia: Status: Acute (3) Acute UTI: Status: Acute Plan 81-year-old gentleman with past medical history of hypertension hyperlipidemia has not seen a primary care physician in last several years but has been receiving his medications through pharmacy on metoprolol, Crestor and lisinopril was brought into [facility] by paramedics due to confusion and difficulty in urination polymicrobial bacteremia due to stone obstruction/UTI/ pneumonia blood cultures x2 polymicrobial on levaquin day 10 ID input appreciated, continue Levaquin for 2-3 weeks following Phimosis Penile mass Post op and penile 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, mri pelvis Showing mass with lymphadenopathy benign biopsy negative for any cancer Urology following , keep the catheter in at time of discharge IR to Do biopsy on lymphadenopathy today corpora cavernosa clot Doppler ultrasound showing possible clot within left corpora cavernosa continue Lovenox full dose started September 14 hypernatremia Sodium improved to 136 DC IVF monitor BMP Acute toxic-metabolic encephalopathy fluctuating< improving likely due to acute infection, hypoactive delirium no prior history of underlying dementia has not seen a physician in several years treat infection follow clinical course recurrent orientation, increase physical activity Acute renal failure likely due to infection/pre renal /obstructive uropathy with calculi, left UVJ stone with mild left hydronephrosis improved Acute diastolic congestive heart failure echo showed EF 55-60% impaired relaxation s/p IV diuretic EKG showed T-wave inversion inferior lateral lead, Repeat EKG, No chest pain, troponin trended down resume statins and beta-joey elevated LFTs likely secondary to sepsis,hepatitis serology nonreactive resolving thrombocytopenia question secondary to sepsis,monitor, resolving hematuria resolving DVT prophylaxis Lovenox, to hold overnight for biopsy reason for continued hospitalization For management of encephalopathy, bacteremia and Penile mass for further evaluation to prevent possible decompensation in to sepsis Quality Stroke Does the patient have a stroke diagnosis?: No VTE Prior VTE?: Yes VTE Risk Level:: Medical - moderate - high VTE Device Contraindication: N/A - Device Ordered VTE Drug Contraindication: N/A - Med Ordered
[2021-09-19 19:49] VITALS: BP 98/54; PULSE 77; RESP 14; TEMP 36.4; O2SAT 99
[2021-09-19] MEDS: Atorvastatin Calcium 40 MG TABLET PO (22:16)
[2021-09-19] MEDS: Enoxaparin Sodium 80 MG/0.8 ML SYRINGE SUBCUT (22:16)
[2021-09-19 23:48] VITALS: BP 113/57; PULSE 72; RESP 16; TEMP 36.7; O2SAT 98
[2021-09-20 04:00] VITALS: BP 123/60; PULSE 76; RESP 15; TEMP 36.5; O2SAT 95
[2021-09-20] MEDS: Omeprazole 20 MG CAPSULE.DR PO (06:37)
[2021-09-20 07:53] VITALS: BP 102/58; PULSE 72; RESP 17; TEMP 36.2; O2SAT 98
[2021-09-20 08:00] VITALS: BMI 27.3
[2021-09-20] MEDS: Enoxaparin Sodium 80 MG/0.8 ML SYRINGE SUBCUT (09:45)
[2021-09-20 09:49] VITALS: BP 102/58
[2021-09-20 11:55] VITALS: BP 111/57; PULSE 77; RESP 16; TEMP 36.6; O2SAT 96
--- NOTE | 2021-09-20 12:05 | P.DS_ITS ---
DS: Providers Provider Date of Service: 09/20/21 Date of admission: 09/07/21 04:39 Primary care physician: Chester Garcia MD Consults: 09/07/21 17:06 Consult to Urology Routine Consulting Provider: Jordan Meeks Reason for consultation: stones with left hydronephrosis. Has provider been notified: Yes 09/08/21 12:16 Consult to Cardiology Routine Consulting Provider: Froylan Wilson Reason for consultation: chf elevated troponin Has provider been notified: No Consult to Nephrology Routine Consulting Provider: Desean Pro Reason for consultation: sharona Has provider been notified: No 09/10/21 08:48 Consult to Infectious Diseases Routine Consulting Provider: Lainey Fields Reason for consultation: bacteremia, polymicrobial, obstructing stone source DS: Diagnosis Discharge Diagnosis (1) Penile mass: Status: Acute (2) Bacteremia: Status: Acute (3) Acute UTI: Status: Acute (4) Hypernatremia: Status: Acute (5) Septic shock: Status: Acute (6) Ureteric stone: Status: Acute (7) Hydronephrosis: Status: Acute (8) Lactic acidosis: Status: Acute (9) Acute diastolic CHF (congestive heart failure): Status: Acute (10) Acute encephalopathy: Status: Acute (11) Acute respiratory failure with hypoxia: Status: Acute (12) Acute renal failure: Status: Acute DS: Summary Hospital Course Hospital Course: The patient had prolonged hospital stay. For full details please returned to EMR. Admission note HPI From ICU provider HPI: ?81-year-old male with underlying history of recurrent UTIs, pyelonephritis, hyperlipidemia, MD , DVT and PE in year 1999, with another PE in 2005, pneumonia, mild restrictive pulmonary disease based on PFTs study from back then, hypertension; constipation, diverticulosis he had been on long-term anticoagulation therapy at the time; Per ER report the patient had arrived confused, hematuria was noted under his underpants; the patient's blood pressure was 74/44, heart rate 89, respirations 28, O2 90% on 4 L nasal cannula and temperature 97.8 degrees.? ? His initial workup revealed a white count of 24.7, H&H of 12 and 37 respectively with platelets of 89, sodium 136, potassium 4.7, chloride 101, carbon dioxide 17, BUN 62 crit, creatinine 4.16, baseline is unknown). ?Lactic acid 7.7. ?A urinalysis is consistent with UTI showing positive nitrates, 3+ leukocyte esterase, 50-75 white blood cells per high-power feel along with glucosuria and proteinuria, trace yeast. ?Respiratory panel negative including COVID test. ?His EKG shows T-wave inversions throughout the lateral inferior leads which are new from prior EKG in 2010 along with an elevated troponin of 2236.? The patient did receive 30 milligrams/kilograms of IV fluid, was started on Zosyn. ?Even though the patient received the above-mentioned IV fluids, his blood pressure does not improve in and we requested to admit the patient for further management and perhaps vasopressor administration. Hospital course the patient was admitted to ICU in septic shock secondary to ureteric stone and evidence of phemosis. Treated with IV antibiotic, IV fluids as he was evaluated by urologist who did cystoscopy with removal of the infected stone and placing a stent. Blood cultures grew polymicrobial of Proteus, group G Streptococcus and morganella. evaluated by infectious disease specialist who recommended Levaquin for total of 3 weeks. Noticed penile mass and get biopsy at that time with pathology result negative for any acute malignancy. Pelvic lymph nodes biopsy was done and results still pending as MRI, CT scan of the abdomen and pelvis showed benign mass extending to his pelvic area with multiple lymph nodes. Doppler ultrasound was done showing an evidence of clot in his left corpora cavernosa. The patient was treated with full-dose Lovenox and will be discharged on Eliquis for total of 3 months. If the pathology shows malignancy then he will need to be anticoagulated indefinitely. Noted to have acute kidney injury at time of presentation secondary to obstruction that resolved. Developed hypernatremia secondary to dehydration when he was altered mentation. Improved with IV fluid. As the patient mentation improved he became more interactive and able to participate with physical therapy who recommended short-term rehab. Also at time of presentation has significantly elevated troponin that was evaluated by Cardiology team who did not believe that was a result of cardiac event but most likely secondary to septic shock recommended outpatient follow-up for evaluation of ischemia. Patient metoprolol was changed from metoprolol 100 mg XL to metoprolol tartrate 25 b.i.d. given hypotension. Continue Levaquin for 10 more days Continue Eliquis for the next 3 months To follow-up with Dr. Meeks from Urology in 2 weeks Will need to follow-up with cardiology office as outpatient for further evaluation and ischemic workup. Metoprolol XL was changed to metoprolol tartrate 25 mg twice daily Lisinopril discontinued for low blood pressures Time Spent with Patient Time attestation: Total time spent providing and/or coordinating discharge services: Discharge coordination time: Greater than 30 minutes Quality: Safe Use of Opioids Does Pt have an Active Cancer Diagnosis on the Problem List?: No Quality: Stroke Does the patient have a stroke diagnosis?: No Physical Exam Vital Signs: Vital Signs: Last Vital Signs Temp 97.9 F 09/20/21 11:55 Pulse 77 09/20/21 11:55 Resp 16 09/20/21 11:55 BP 111/57 L 09/20/21 11:55 Pulse Ox 96 09/20/21 11:55 O2 Del Method 09/20/21 11:55 O2 Flow Rate 3 09/13/21 08:00 Oxygen Flow Rate 5 09/07/21 01:41 BMI result Body Mass Index 27.3 Const: Other: Constitutional : Alert, corrected, not in distress Neck : Normal inspection, Supple Cardiovascular : RRR, no JVP, no lower extremity edema Respiratory : fair bilateral air entry, no crackles, wheezes or rhonchi Gastrointestinal: soft, lax, Normal bowel sounds, Non tender Skin : Warm, Dry Urology: Barry catheter in place with clear urine, surrounding small amount of old blood around the Barry. Neurological : Alert with stimulation, oriented to self and time only, very weak, No focal deficit DS: Data Data Completed and Pending Completed studies during hospitalization [Text1]: Pending at discharge 09/11/21 16:30 Surgical [PTH] Routine Pending studies at discharge: Pending at discharge 09/19/21 12:42 Cytology [PTH] Routine Labs on day of discharge: Preliminary micro results at discharge 09/19/21 12:20 Routine Culture - Preliminary Lymph Node No growth to date. Imaging CT scan - abdomen: Radiologist's impression: ITS Impressions Chest X-Ray 09/07/21 02:51 IMPRESSION: *Focal ground glass and airspace opacity within the right middle lung zone suspicious for acute infection. Findings could represent atypical/viral infection. *Findings suspicious for mild pulmonary vascular congestion. *Possible trace right pleural effusion. Chest X-Ray 09/07/21 05:29 IMPRESSION: *Right internal jugular catheter terminating in projection with the right atrium 2 cm inferior to the cavoatrial junction. *Focal right middle lung zone airspace opacity which may represent infection. *Findings suspicious for pulmonary vascular congestion. *Trace right pleural effusion. This result regarding right IJ catheter positioning and findings suspicious for right middle lung zone airspace disease was discussed with Flynn GONZALEZ by telephone at 09/07/2021 5:43 AM and it was ascertained that the content and urgency of the report was understood at the time of direct communication. Abdomen/Pelvis CT 09/07/21 08:58 IMPRESSION: 1. Mild left hydronephrosis caused by a cluster of calculi at the level the left ureterovesical junction. 2. Decompressed urinary bladder with moderate diffuse mural thickening and perivesicular infiltrative changes suggesting an infectious/inflammatory cystitis. An additional intraluminal calculus is seen posterior superiorly. 3. Mild air adjacent to the Barry catheter in the bulbar and penile segments. This could be secondary to instrumentation however, an infectious/inflammatory process cannot be excluded. 4. Cholelithiasis without evidence for acute cholecystitis. 5. Mild to moderate colonic diverticulosis without evidence for acute diverticulitis. Skull X-Ray 09/11/21 11:58 IMPRESSION: No metallic foreign bodies in the orbits to preclude MRI. Pelvis MRI 09/11/21 13:00 IMPRESSION: Penile mass suboptimally assessed in the absence of intravenous contrast centered predominantly along the dorsal shaft extending to the glands and encasing the urethra. Evaluation of superimposed vascular penile thrombosis is essentially nondiagnostic in the absence of intravenous contrast. Inguinal and pelvic lymphadenopathy. Nonspecific heterogeneity of the bone marrow. Enlarged prostate. This examination was not targeted to assess for prostatic neoplasm for which correlation with PSA, biopsy or prostatic MRI is recommended if clinically indicated. Significant soft tissue stranding and edema around the penis and inguinal regions with a small volume of free fluid and also fat stranding in the pelvis and presacral space. Abnormal wall thickening of the urinary bladder with trabeculations, possibly related with chronic outlet obstruction. Correlate with urinalysis and if indicated cystoscopy. This result was discussed with Eliazar MELARA at 09/13/2021 3:41 PM and it was ascertained that the content of the report was understood at the time of direct communication. Penile Vascular Ultrasound 09/13/21 23:51 IMPRESSION: There is a crescentic hypoechoic area within the left corpora cavernosa which could represent an area which appears clotted / thrombosed. No other areas of definite venous thrombosis seen involving any other venous structures. Needle Aspiration US 09/19/21 12:55 IMPRESSION: Ultrasound-guided left inguinal lymph node fine-needle aspiration. Discharge Plan Discharge Patient Disposition: [facility] Discharge Diagnosis: Bacteremia Benign mass UTI toxic Metabolic encephalopathy [facility] [Outside] - 1 Week Chester Garcia MD [Primary Care Provider] - 1 Week Discharge Medications: New levofloxacin 250 mg Tablet 250 mg PO Q24H 10 Days Qty: 10 0RF omeprazole 20 mg Capsule,Delayed Release(Dr/Ec) 20 mg PO DAILY@0630 30 Days Qty: 30 0RF metoprolol tartrate 25 mg tablet 25 mg PO BID Qty: 60 0RF Eliquis 5 mg tablet 5 mg PO BID Qty: 60 0RF Continued rosuvastatin 10 mg tablet 1 tab PO BEDTIME Discontinued metoprolol succinate 100 mg tablet extended release 24 hr 1 tab PO DAILY lisinopril 30 mg tablet 1 tab PO DAILY Discharge Orders: Discharge Order (Routine); Ordered 09/20/21 Ordered By: Shazia Perea Activity on Discharge: NDD3 Stand Alone Forms: Patient Portal Discharge page Care Plan Goals: Read below Health Concerns: Read below Plan of Treatment: Read below Assessment: you were admitted to the ICU for evidence of septic shock as a result of infected urinary stone. Had a procedure done by Urology as pain iron mass was noted and biopsied. Your responded well to IV antibiotic treatment as your blood to grew multiple microbes that was evaluated by infectious disease specialist who recommended 3 weeks of antibiotics. Noted to have a clot in your core portal cover nausea of the penis requiring blood thinners. Continue Levaquin for 10 more days Continue Eliquis for the next 3 months To follow-up with Dr. Meeks from Urology in 2 weeks Will need to follow-up with cardiology office as outpatient for further evaluation and ischemic workup. Metoprolol XL was changed to metoprolol tartrate 25 mg twice daily Lisinopril discontinued for low blood pressures
--- NOTE | 2021-09-20 12:12 | MHC.CM.PN ---
Patient has been medically cleared for dc to STR/SNF today. Patient will dc to his first choice SNF/[facility] today at 2PM, via [facility]. Patient, Girlfriend/HCP/S[place]yer, Sister and [facility] Protective Set Builder/Myesha @ [phone], Ext. [phone] have been notified of the dc plan. Patient and HCP are aware of and in agreement with the dc plan. IMM addressed with HCP at bedside and original has been given to her and a copy has been placed on the chart.
[2021-09-20] MEDS: levoFLOXacin 250 MG TABLET PO (12:25)
--- NOTE | 2021-09-20 12:25 | MHC.CM.PN ---
Per [facility] [employer]/Myesha Gallegos dc summary has been successfully faxed to her at [phone].
[2021-09-20 13:00] LABS: COVID-19 Test Negative (Negative)
[2021-09-20 14:59] LABS: Influenza A PCR NEGATIVE (Negative); Influenza B PCR NEGATIVE (Negative); Resp Syncy Virus RNA Qual PCR NEGATIVE (Negative); SARS COV2 PCR INHOUSE NEGATIVE (Negative)
== END 2021-09-20 15:30 | disposition skilled nursing facility (03) | DRG 853 ==
LOC: HO.ED 04:28 → HO.EDOVER 04:40 → HO.ICU 07:44 → HO.IMC 09-08 10:23
PROVIDERS: Anesthesiology; Hospitalist; Internal Medicine; Internal Medicine Nephrology; Radiology Diagnostic Radiology; Urology; Admitting Provider Physician Assistant Medical; Emergency Provider Emergency Medicine Emergency Medical Services; PCP Internal Medicine; Visit Provider Student in an Organized Health Care Education/Training Program
PROC: 0T778DZ Dilation of Left Ureter with Intraluminal Device, Via Natural or Artificial Opening Endoscopic (ICD-10-PCS; principal; 2021-09-09 08:30)
PROC: 0VBS0ZX Excision of Penis, Open Approach, Diagnostic (ICD-10-PCS; principal; 2021-09-11 14:20)
DX: A41.9 Sepsis, unspecified organism (principal); G92.8 Other toxic encephalopathy; R65.21 Severe sepsis with septic shock; J96.01 Acute respiratory failure with hypoxia; I50.31 Acute diastolic (congestive) heart failure; J18.9 Pneumonia, unspecified organism; I21.4 Non-ST elevation (NSTEMI) myocardial infarction; N13.6 Pyonephrosis; E87.2 Acidosis; E87.0 Hyperosmolality and hypernatremia; I13.0 Hypertensive heart and chronic kidney disease with heart failure and stage 1 through stage 4 chronic kidney disease, or unspecified chronic kidney disease; E87.1 Hypo-osmolality and hyponatremia; D69.6 Thrombocytopenia, unspecified; N18.30 Chronic kidney disease, stage 3 unspecified; N47.1 Phimosis; C60.9 Malignant neoplasm of penis, unspecified; D63.1 Anemia in chronic kidney disease; R31.9 Hematuria, unspecified; N48.89 Other specified disorders of penis; E88.09 Other disorders of plasma-protein metabolism, not elsewhere classified; F03.90 Unspecified dementia, unspecified severity, without behavioral disturbance, psychotic disturbance, mood disturbance, and anxiety; E78.5 Hyperlipidemia, unspecified; Z20.822 Contact with and (suspected) exposure to COVID-19; Z79.01 Long term (current) use of anticoagulants; Z79.899 Other long term (current) drug therapy
CPT/HCPCS: 0241U; 10005; 36415; 70250; 71045; 72195; 74176; 80048; 80053; 80061; 80076; 80173; 81001; 82272; 82550; 82784; 82803; 83605; 83615; 83735; 83880; 84100; 84153; 84295; 84484; 85007; 85025; 85027; 85335; 85397; 85610; 85730; 86021; 86140; 86160; 86334; 86704; 86706; 86709; 86803; 87040; 87071; 87077; 87086; 87147; 87186; 87205; 87340; 87502; 87635; 88173; 88184; 88185; 88305; 93005; 93306; 93980; 96361; 96365; 96366; 96367; 97110; 97162; 97163; 97530; 99285; C1758; C1769; C2617; J0456; J0696; J1450; J1650; J1940; J1956; J2370; J2405; J2543; J3010; P9047; Q9967

== ENCOUNTER → 2021-09-26 08:54 | Outpatient (BNVA) | payer MEDICARE, MEDICAID, SELFPAY | PROVIDERS: PCP Internal Medicine; Visit Provider Urology | DX: N13.2 Hydronephrosis with renal and ureteral calculous obstruction (principal); Z96.0 Presence of urogenital implants | CPT/HCPCS: Q3014 ==

== ENCOUNTER → 2021-10-25 08:13 | Outpatient (BNVA) | payer MEDICARE, MEDICAID, SELFPAY | PROVIDERS: PCP Internal Medicine; Visit Provider Urology | DX: N40.1 Benign prostatic hyperplasia with lower urinary tract symptoms (principal); N13.8 Other obstructive and reflux uropathy; R33.9 Retention of urine, unspecified; R35.0 Frequency of micturition | CPT/HCPCS: Q3014 ==

== ENCOUNTER 2021-10-25 21:52 | Inpatient (IN) | payer MEDICARE, MEDICAID, SELFPAY ==
[2021-10-25] VITALS (10 sets, daily range): BP systolic 60–95; BP diastolic 38–54; PULSE 74–90; RESP 16–20; TEMP 36.5; O2SAT 95–97; BMI 19.6
--- NOTE | ~2021-10-25 | XR_ITS ---
EXAMINATION: XR CHEST CLINICAL INFORMATION: Central line COMPARISON: 09/07/2021 TECHNIQUE: Frontal view of the chest was obtained. FINDINGS: Right internal jugular central venous catheter terminates near the cavoatrial junction. Cardiac leads overlie the chest. The lungs are well expanded. No consolidation, edema, or effusion. No pneumothorax. The cardiomediastinal silhouette is within normal limits. XR/XR chest 1V IMPRESSION: Right internal jugular central venous catheter terminates near the cavoatrial junction. No pneumothorax.
--- NOTE | ~2021-10-25 | CT_ITS ---
EXAMINATION: CT ABDOMEN AND PELVIS WITHOUT CONTRAST CLINICAL INFORMATION: Urosepsis. Stents placed. COMPARISON: 09/07/2021 TECHNIQUE: Multidetector volumetric imaging was performed from the superior aspect of the liver through the pubic symphysis. Sagittal and coronal reformatted images were obtained on the technologist's workstation. This CT examination was performed using dose optimization techniques as appropriate, variously including the following: *Automated exposure control *Adjustment of mA and/or kV according to patient size (this includes techniques or standardized protocols for targeted exams where dose is matched to indication/reason for exam; i.e. extremities or head) *Use of iterative reconstruction technique DLP: 555 mGy-cm FINDINGS: LUNG BASES: Bibasilar atelectasis. Normal heart size. LIVER, GALLBLADDER, AND BILIARY TREE: The liver is normal in size, shape, and attenuation. No focal hepatic lesion or biliary ductal dilatation is present. Small stones in the gallbladder lumen. No wall thickening or adjacent inflammation. PANCREAS: Unremarkable. SPLEEN: Unremarkable. ADRENAL GLANDS: Unremarkable. KIDNEYS AND URETERS: The kidneys are normal in size, shape, and attenuation. Left ureteral stent in place terminating at the upper pole calyx. Mild left hydroureteronephrosis. No calculi. Stranding along the course of the ureter. Stranding is greatest in the pelvis. BLADDER: Diffuse bladder wall thickening. Multiple layering calculi in the bladder lumen. Inflammatory stranding along the bladder. GASTROINTESTINAL TRACT: Stomach is unremarkable. Normal caliber small bowel. No obstruction. Colonic diverticulosis which is greatest at the sigmoid colon. No diverticulitis. Normal appendix. ABDOMINAL WALL: No significant hernia is appreciated. LYMPH NODES: There are enlarged lymph nodes seen in the pelvis. These are increased compared to prior. For instance there is a left iliac chain node measuring 1.4 cm on series 3 image 70. This previously measured 1.3 cm. More proximally there is a . This previously measured 1.6 cm. 1.2 cm node adjacent to the left common iliac artery near the bifurcation. This is unchanged from prior. VASCULAR: Unremarkable. PELVIC VISCERA: Enlarged prostate. This measures 5.2 cm transverse. OSSEOUS STRUCTURES: No acute or suspicious osseous abnormality. Advanced degenerative changes of the spine with bridging osteophytes. DISH. Vacuum disc phenomenon at L3-L4 and L4-L5. CT/CT abdomen pelvis wo con IMPRESSION: Prominent bladder wall thickening with adjacent inflammation, concerning for infectious process. Numerous bladder calculi. Left ureteral stent in place. Mild left hydroureteronephrosis noted. Enlarged left pelvic lymph nodes, similar to mildly increased in size when compared to prior. Cholelithiasis. Fleischner guidelines were followed.
--- NOTE | 2021-10-25 22:02 | ECG_ITS ---
Test Reason : cp Blood Pressure : / mmHG Vent. Rate : 079 BPM Atrial Rate : 079 BPM P-R Int : 170 ms QRS Dur : 128 ms QT Int : 400 ms P-R-T Axes : 071 -61 -35 degrees QTc Int : 458 ms Normal sinus rhythm Left axis deviation Non-specific intra-ventricular conduction block Minimal voltage criteria for LVH, may be normal variant ( Ar product ) Cannot rule out Septal infarct , age undetermined Abnormal ECG When compared with ECG of 08-SEP-2021 14:03, Minimal criteria for Septal infarct are now Present ST now depressed in Inferior leads Non-specific change in ST segment in Lateral leads T wave inversion now evident in Inferior leads Referred By: Suri Prabhakar Electronically Signed By:BALDEV MORGAN
[2021-10-25] MEDS: 0.9 % Sodium Chloride 2,000 ML 999 ML IVCONT (22:08)
[2021-10-25 22:18] LABS: Basophils Percent Auto 0.3 % (0-2); Hemoglobin 9.3 g/dl (14.0-18.0); Imm Gran Abs Auto 0.03 X10*3/uL (0.00-0.03); Imm Gran Pct Auto 0.5 % (0.0-0.4); Lymphocytes Absolute Auto 0.6 X10*3/uL (1.2-4.9); Lymphocytes Percent Auto 9.3 % (20-40); MANUAL DIFF FLAG NO; Mean Corpuscular HGB Conc 33.2 g/dl (31.0-36.0); Mean Corpuscular Hemoglobin 28.5 pg (27.0-33.0); Mean Corpuscular Volume 85.9 fL (80.0-98.0); Monocytes Absolute Auto 0.6 X10*3/uL (0.1-1.2); Monocytes Percent Auto 9.9 % (2-11); Neutrophils Absolute Auto 5.2 x10*3/uL (2.0-8.3); Platelet Count 243 X10*3/uL (160-400); Red Blood Count 3.26 X10*6/uL (4.60-5.80); Red Cell Distribution Width 15.2 % (11.0-16.0); White Blood Count 6.5 X10*3/uL (4.8-10.8)
[2021-10-25] MEDS: cefTRIAXone sodium 1 GM in 0.9 % Sodium Chloride 50 ML IV (22:21)
[2021-10-25 22:24] LABS: INTERNATIONAL NORM RATIO 1.5 (0.9-1.1); Prothrombin Time 17.2 SEC (10.0-13.1)
[2021-10-25 22:31] LABS: Lactic Acid 1.5 mmol/L (0.5-2.0)
[2021-10-25 22:38] LABS: Alanine Aminotransferase 7 U/L (0-40); Albumin Level 2.6 g/dL (3.5-5.0); Alkaline Phosphatase 67 U/L (39-117); Anion Gap 15 (12-20); Aspartate Amino Transferase 25 U/L (5-37); Bilirubin Direct 0.5 mg/dL (0.0-0.5); Bilirubin Total 1.4 mg/dL (0.0-1.0); Blood Urea Nitrogen 27 mg/dL (9-16); Calcium 9.8 mg/dL (8.4-10.2); Carbon Dioxide 21 mmol/L (22-29); Chloride 100 mmol/L (96-108); Creatinine Clr Calc Pharmacy 28.3; Estimated Glomerular Filt Rate 34; Glucose Random 180 mg/dL (60-115); Potassium 4.4 mmol/L (3.3-5.1); Sodium 132 mmol/L (135-145); Total Protein 6.1 g/dL (6.5-8.0)
--- NOTE | 2021-10-25 22:48 | ED.MALEGU ---
HPI - Male Genitourinary General Chief complaint: Urogenital-Male Stated complaint: ? Sepsis Time Seen by Provider: 10/25/21 22:01 Source: patient, family and EMS Mode of arrival: EMS Limitations: no limitations History of Present Illness HPI Narrative: Patient comes to the emergency room complaining of a Barry catheter issue. Patient has had multiple urological procedures including stent placement for nephrolithiasis and urosepsis. Patient was seen today by Urology today, patient had a visiting nurse, noticed that the patient was not producing any urine into the bag. However he had a large amount urine leaking around the penis. Patient denies any suprapubic pain or tenderness. When EMS arrived to the patient's residence, they noted that the patient's blood pressure was in the low 60s. Patient states that he has no chest pain, shortness of breath or dizziness. Patient is currently on Levaquin for the above-mentioned urologic procedures. Related Data Home Medications Medication Instructions Recorded Confirmed rosuvastatin 10 mg tablet 1 tab PO BEDTIME 09/07/21 10/26/21 apixaban 2.5 mg tablet (Eliquis) 2.5 mg PO BID 10/25/21 10/26/21 Previous Rx's Medication Instructions Recorded metoprolol tartrate 25 mg tablet 25 mg PO BID #60 tabs 09/20/21 omeprazole 20 mg capsule,delayed 20 mg PO DAILY@0630 30 days #30 09/20/21 release caps finasteride 5 mg tablet 5 mg PO DAILY 90 days #90 tabs 10/25/21 terazosin 5 mg capsule 5 mg PO BEDTIME 90 days #90 caps 10/25/21 Allergies Allergy/AdvReac Type Severity Reaction Status Date / Time No Known Allergies Allergy Verified 10/25/21 08:15 Review of Systems Review of Systems: Constitutional : No Weight loss, No Fever, No Chills, No Night Sweats, No Fatigue, No Malaise ENT/Mouth : No Hearing loss, No Ear Pain, No Nasal Congestion, No Sinus Pain, No Hoarseness, No sore throat, No Rhinorrhea, No Swallowing Difficulty Eyes: No Eye Pain, No Swelling, No Redness, No Foreign Body, No Discharge, No Vision Changes Cardiovascular : No Chest Pain, No SOB, No Dyspnea on Exertion, No Orthopnea, No Edema, No Palpitations Respiratory : No Cough, No Sputum, No Wheezing, No Smoke Exposure, No Dyspnea Gastrointestinal : No Nausea, No Vomiting, No Diarrhea, No Constipation, No abdominal Pain, No Hematochezia, No Melena Genitourinary : Complaining of urine leaking around the Barry catheter. No Dysuria, No Urinary Frequency, No Hematuria, No Urinary Incontinence, No Urgency, No Flank Pain, No Urinary Flow Changes, No Hesitancy Musculoskeletal : No joint pain, No Myalgias, No Joint Swelling Skin : No Skin Lesions, No rash Neuro : No Weakness, No Numbness, No Paresthesias, No Loss of Consciousness, No Dizziness, No Headache Psych : No Anxiety/Panic, No Depression, No SI/HI/AH/VH, No Social Issues, Heme/Lymph: No Bruising, No Bleeding,No Lymphadenopathy Endocrine : No Polyuria, No Polydipsia, No Temperature Intolerance PMFSH Past Medical History Medical History Accelerated essential hypertension HTN (hypertension) Hypercholesterolemia Hyperlipidemia OA (osteoarthritis) Penile mass Pulmonary embolism Shortness of breath Surgical History History of surgery Social History Social History Household Members: Significant Other Housing: House Do you presently have visiting nurse or other home services: No Patient Tobacco Use Status: Never used Tobacco e-Cigarette/Vaping Use: Never Used Second Hand Smoke Exposure: No Advance Directives: Yes Advance Directives on File: Yes Advance Directives Date on File: 09/21/21 service: No Current occupational status: retired Physical Exam Vital Signs: Vital Signs: Last Vital Signs Temp 97.6 F 10/26/21 00:51 Pulse 68 10/26/21 01:22 Resp 20 10/26/21 01:22 BP 85/51 L 10/26/21 01:22 Pulse Ox 97 10/26/21 01:22 O2 Del Method 10/26/21 01:22 BMI result Body Mass Index 19.6 Const: Other: Appearance: Alert. Oriented X3. No acute distress. Eyes: Pupils equal, round and reactive to light. ENT: Pharynx normal. Neck: Normal inspection. Neck supple. No lymph nodes noted. No crepitus CVS: Normal heart rate and rhythm. Pulses normal. Normal S1 and S2 Respiratory: No respiratory distress. Breath sounds normal. No Wheezing. No rales Abdomen: Soft and nontender. No rigidity. No distention. Skin: Skin warm and dry. Pale,. Normal skin turgor. Extremities: No lower extremity edema. No Lacerations. No Rash Neuro: Oriented X 3. No motor deficit. No sensory deficit. Moving all extremities. No slurred speech. CN 2 through 12 grossly intact Psych: calm, cooperative, normal affect Course Course Course Narrative: I discussed the new EKG changes and increased troponin with Dr. Smith. At this time, recommendations: Trend troponin and continue Eliquis, no heparin Patient's blood pressure improved to 95/54 after 3 L of normal saline. Patient already getting IV antibiotics, ceftriaxone for possible UTI, patient remains asymptomatic. After 3 L of fluid, patient's blood pressure dropped to the 70s. Urinalysis is still pending I discussed with the patient and his that he will likely need a central line, was agreeable. Patient had a central line in his previous admission. A central line has been inserted, patient started on Levophed I discussed the patient with Dr. Moss, patient being admitted to the ICU MDM - Male Genitourinary Lab Data Result diagrams: 10/25/21 22:12 10/25/21 22:12 Labs: Lab Results 10/25/21 10/25/21 10/25/21 Range/Units 22:12 22:12 22:12 WBC 6.5 (4.8-10.8) X10*3/uL RBC 3.26 L (4.60-5.80) X10*6/uL Hgb 9.3 L (14.0-18.0) g/dl Hct 28.0 L (42.0-52.0) % MCV 85.9 (80.0-98.0) fL MCH 28.5 (27.0-33.0) pg MCHC 33.2 (31.0-36.0) g/dl RDW 15.2 (11.0-16.0) % Plt Count 243 D (160-400) X10*3/uL MPV 9.0 L (9.4-12.4) fL Immature Gran % (Auto) 0.5 H (0.0-0.4) % Neut % (Auto) 80.0 H (45-73) % Lymph % (Auto) 9.3 L (20-40) % [place] % (Auto) 9.9 (2-11) % Eos % (Auto) 0.0 (0-4) % Baso % (Auto) 0.3 (0-2) % Lymph # (Auto) 0.6 L (1.2-4.9) X10*3/uL [place] # (Auto) 0.6 (0.1-1.2) X10*3/uL Eos # (Auto) 0.0 (0.0-0.4) X10*3/uL Baso # (Auto) 0.0 (0.0-0.2) X10*3/uL Abs Immat Gran (auto) 0.03 (0.00-0.03) X10*3/uL Absolute Neuts (auto) 5.2 (2.0-8.3) x10*3/uL Absolute Nucleated RBC 0.000 (0.0-0.012) X10*3/uL Nucleated RBC % (auto) 0.0 (0.0-0.2) /100WBC PT 17.2 H (10.0-13.1) SEC INR 1.5 H (0.9-1.1) APTT 31.4 (26.0-36.4) SEC Sodium 132 L (135-145) mmol/L Potassium 4.4 (3.3-5.1) mmol/L Chloride 100 (96-108) mmol/L Carbon Dioxide 21 L (22-29) mmol/L Anion Gap 15 (12-20) BUN 27 H (9-16) mg/dL Creatinine 1.90 H (0.5-1.4) mg/dL Estim Creat Clear Calc 28.3 Estimated GFR 34 Random Glucose 180 H D (60-115) mg/dL Lactic Acid (0.5-2.0) mmol/L Calcium 9.8 D (8.4-10.2) mg/dL Total Bilirubin 1.4 H (0.0-1.0) mg/dL Direct Bilirubin 0.5 (0.0-0.5) mg/dL AST 25 D (5-37) U/L ALT 7 (0-40) U/L Alkaline Phosphatase 67 D (39-117) U/L Troponin I High Sens (<3.5-35.0) ng/L B-Natriuretic Peptide (<100) pg/mL Total Protein 6.1 L (6.5-8.0) g/dL Albumin 2.6 L (3.5-5.0) g/dL Urine Color Urine Appearance Urine pH (5.0-8.0) Ur Specific [place] (1.005-1.025) Urine Protein (NEG-TRACE) MG/DL Urine Glucose (UA) (NEG) MG/DL Urine Ketones (NEG) MG/DL Urine Blood (NEG) Urine Nitrite (NEG) Ur Leukocyte Esterase (NEG) Urine RBC (0) /HPF Urine WBC (0-4) /HPF Ur Squamous Epith Cells /LPF Urine Bacteria /LPF COVID-19 ([facility]) (Negative) COVID-19 Clin Com 10/25/21 10/25/21 10/25/21 Range/Units 22:12 22:12 22:12 WBC (4.8-10.8) X10*3/uL RBC (4.60-5.80) X10*6/uL Hgb (14.0-18.0) g/dl Hct (42.0-52.0) % MCV (80.0-98.0) fL MCH (27.0-33.0) pg MCHC (31.0-36.0) g/dl RDW (11.0-16.0) % Plt Count (160-400) X10*3/uL MPV (9.4-12.4) fL Immature Gran % (Auto) (0.0-0.4) % Neut % (Auto) (45-73) % Lymph % (Auto) (20-40) % [place] % (Auto) (2-11) % Eos % (Auto) (0-4) % Baso % (Auto) (0-2) % Lymph # (Auto) (1.2-4.9) X10*3/uL [place] # (Auto) (0.1-1.2) X10*3/uL Eos # (Auto) (0.0-0.4) X10*3/uL Baso # (Auto) (0.0-0.2) X10*3/uL Abs Immat Gran (auto) (0.00-0.03) X10*3/uL Absolute Neuts (auto) (2.0-8.3) x10*3/uL Absolute Nucleated RBC (0.0-0.012) X10*3/uL Nucleated RBC % (auto) (0.0-0.2) /100WBC PT (10.0-13.1) SEC INR (0.9-1.1) APTT (26.0-36.4) SEC Sodium (135-145) mmol/L Potassium (3.3-5.1) mmol/L Chloride (96-108) mmol/L Carbon Dioxide (22-29) mmol/L Anion Gap (12-20) BUN (9-16) mg/dL Creatinine (0.5-1.4) mg/dL Estim Creat Clear Calc Estimated GFR Random Glucose (60-115) mg/dL Lactic Acid 1.5 (0.5-2.0) mmol/L Calcium (8.4-10.2) mg/dL Total Bilirubin (0.0-1.0) mg/dL Direct Bilirubin (0.0-0.5) mg/dL AST (5-37) U/L ALT (0-40) U/L Alkaline Phosphatase (39-117) U/L Troponin I High Sens 4724.1 H* D (<3.5-35.0) ng/L B-Natriuretic Peptide 182 H (<100) pg/mL Total Protein (6.5-8.0) g/dL Albumin (3.5-5.0) g/dL Urine Color Urine Appearance Urine pH (5.0-8.0) Ur Specific [place] (1.005-1.025) Urine Protein (NEG-TRACE) MG/DL Urine Glucose (UA) (NEG) MG/DL Urine Ketones (NEG) MG/DL Urine Blood (NEG) Urine Nitrite (NEG) Ur Leukocyte Esterase (NEG) Urine RBC (0) /HPF Urine WBC (0-4) /HPF Ur Squamous Epith Cells /LPF Urine Bacteria /LPF COVID-19 ([facility]) Negative (Negative) COVID-19 Clin Com See Note 10/25/21 Range/Units 22:44 WBC (4.8-10.8) X10*3/uL RBC (4.60-5.80) X10*6/uL Hgb (14.0-18.0) g/dl Hct (42.0-52.0) % MCV (80.0-98.0) fL MCH (27.0-33.0) pg MCHC (31.0-36.0) g/dl RDW (11.0-16.0) % Plt Count (160-400) X10*3/uL MPV (9.4-12.4) fL Immature Gran % (Auto) (0.0-0.4) % Neut % (Auto) (45-73) % Lymph % (Auto) (20-40) % [place] % (Auto) (2-11) % Eos % (Auto) (0-4) % Baso % (Auto) (0-2) % Lymph # (Auto) (1.2-4.9) X10*3/uL [place] # (Auto) (0.1-1.2) X10*3/uL Eos # (Auto) (0.0-0.4) X10*3/uL Baso # (Auto) (0.0-0.2) X10*3/uL Abs Immat Gran (auto) (0.00-0.03) X10*3/uL Absolute Neuts (auto) (2.0-8.3) x10*3/uL Absolute Nucleated RBC (0.0-0.012) X10*3/uL Nucleated RBC % (auto) (0.0-0.2) /100WBC PT (10.0-13.1) SEC INR (0.9-1.1) APTT (26.0-36.4) SEC Sodium (135-145) mmol/L Potassium (3.3-5.1) mmol/L Chloride (96-108) mmol/L Carbon Dioxide (22-29) mmol/L Anion Gap (12-20) BUN (9-16) mg/dL Creatinine (0.5-1.4) mg/dL Estim Creat Clear Calc Estimated GFR Random Glucose (60-115) mg/dL Lactic Acid (0.5-2.0) mmol/L Calcium (8.4-10.2) mg/dL Total Bilirubin (0.0-1.0) mg/dL Direct Bilirubin (0.0-0.5) mg/dL AST (5-37) U/L ALT (0-40) U/L Alkaline Phosphatase (39-117) U/L Troponin I High Sens (<3.5-35.0) ng/L B-Natriuretic Peptide (<100) pg/mL Total Protein (6.5-8.0) g/dL Albumin (3.5-5.0) g/dL Urine Color BROWN A Urine Appearance CLOUDY Urine pH 6.0 (5.0-8.0) Ur Specific [place] 1.015 (1.005-1.025) Urine Protein 2+ H (NEG-TRACE) MG/DL Urine Glucose (UA) NEG (NEG) MG/DL Urine Ketones NEG (NEG) MG/DL Urine Blood 3+ H (NEG) Urine Nitrite NEG (NEG) Ur Leukocyte Esterase 3+ H (NEG) Urine RBC 1-4 (0) /HPF Urine WBC TNTC H (0-4) /HPF Ur Squamous Epith Cells 1+ /LPF Urine Bacteria 3+ /LPF COVID-19 ([facility]) (Negative) COVID-19 Clin Com Imaging Data Chest x-ray: Radiologist's impression: FINDINGS: Right internal jugular central venous catheter terminates near the cavoatrial junction. Cardiac leads overlie the chest. The lungs are well expanded. No consolidation, edema, or effusion. No pneumothorax. The cardiomediastinal silhouette is within normal limits. XR/XR chest 1V IMPRESSION: Right internal jugular central venous catheter terminates near the cavoatrial junction. No pneumothorax. Procedures Central Line Placement Right IJ: Time Out Performed: Yes Patient Placed on Monitor/Pulse Ox: Yes MD Prep: mask, gown and gloves Central Line Prep: Chlorhexidine scrub Local Anesthetic: lidocaine 1% Amount of anesthesia used (mL): 5 Ultrasound Used for Placement: Yes Central Line Lumen Inserted: triple Post Procedure: sutured in place, good blood return, all ports aspirated, flushed, capped and sterile dressing applied Post Procedure X-Ray: tip of catheter in good position Patient Tolerated Procedure: well and no complications Complications: none Critical Care Time Critical Care Time Critical Care Time: Yes Total Critical Care Time: 80 Attestation: I have personally provided critical care time. Time includes review of lab data, radiology results, discussion with consultants, and monitoring for potential decompensation. Intervention performed as documented. Discharge Plan Discharge Clinical Impression: Hypotension, Acute kidney injury, Elevated troponin, Acute UTI Patient Disposition: Admitted As Inpatient
[2021-10-25 23:24] LABS: COVID-19 Test Negative (Negative); IDNOW Serial# 9DB6401D
[2021-10-25 23:35] LABS: B Type Natriuretic Peptide 182 pg/mL (<100)
[2021-10-25 23:46] LABS: Appearance Urine CLOUDY; Color Urine BROWN; Glucose Urine UA NEG (NEG); Leukocyte Esterase Urine 3+ (NEG); Nitrite Urine NEG (NEG); Specific Gravity - Urine 1.015 (1.005-1.025); UACC Culture Trigger YES; Urine Blood 3+ (NEG); Urine Ketones NEG (NEG); Urine Protein 2+ MG/DL (NEG-TRACE)
[2021-10-25 23:53] LABS: Bacteria Urine 3+ /LPF; Squamous Epithelial Cell Urine 1+ /LPF; WBC Urine TNTC /HPF (0-4)
[2021-10-26] VITALS (42 sets, daily range): BP systolic 70–122; BP diastolic 40–68; PULSE 68–107; RESP 10–24; TEMP 36.3–37; O2SAT 92–99; BMI 21.4
--- NOTE | 2021-10-26 00:31 | PM.CCHP ---
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 At the time patient was admitted to the ICU with septic shock in the setting of ureteric stone, he was treated with vasopressors, antibiotics and IV fluids, he underwent a cistoscopy with removal of the infected stone and placement of a stent.? Patient had been seen by infectious disease and treated for Proteus group G strep and Morganella for a total of 3 weeks with Levaquin.? 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 At the time he had acute kidney injury which had resolved and the patient had gone to a rehab facility. Even though he did have EKG changes and abnormal troponin at the time, the cardiology evaluation was deferred for outpatient evaluation.? His medications for blood pressure had been adjusted. Today patient had presented to the emergency room with complaints of having problems with his Barry catheter as a nurse had noted that he was not producing any urine within his Barry catheter bag however a large amount of urine leak had been noted around the penis.? EMS had been called and upon their arrival they noted the patient's blood pressure was in the low 60s.? Upon arrival to the ER his blood pressure was 85/53, otherwise not tachycardic or tachypneic, not hypoxic, not febrile.? Patient has no white count, H&H is 9.3 and 28.0 respectively, platelets 243, patient has abnormal troponin elevation higher than before, upon discussion by ED physician with the dental appliance repairer was advised to continue with Eliquis, however is noted the patient's renal function is higher than his baseline with creatinine 1.90 1 his lowest baseline had been 1.35.? Urinalysis shows cloudy urine with 2+ protein, hematuria, 3+ leukocyte esterase and white blood cells, the patient was given ceftriaxone, 3 L of IV fluids, central line had been placed and the patient was started on vasopressors. ?CT of the abdomen and pelvis shows prominent bladder with wall thickening and adjacent inflammation concerning for infectious process, numerous bladder calculi and left ureteral stent in place, mild left hydroureteronephrosis.? Enlarged left pelvic lymph nodes similar to mildly increased in size when compared to prior studies and cholelithiasis. ? Currently patient denies any symptomatology, the patient is not aware of what happened, he does not recall anything other than feeling better in the hospital. ? ? Review of systems: As above, otherwise the patient denies, cold intolerance, migraine, headaches, head trauma, no eyes, ears or nose problems, no problems swallowing or with phonation, no thyroid disease, palpitations,cough, sputum production, pneumonia, bronchitis, COPD or emphysema, abdominal pain, nausea, vomiting, diarrhea, melena, hematochezia, hematemesis, no recent hematuria, liver problems, immunocompromise state of any kind, leg edema, fractures or extremity surgeries all other review of systems were reviewed and they were all negative.? Past Medical History:??As above ? Past Surgical History:?Unknown ? Family history:?Unknown ? Social History:? Per prior records the patient has not been a smoker or a drinker. Lives home with his . ? CODE STATUS:?FULL CODE ? Allergies:?NKDA ? Home Medications: See Med Rec ? Physical exam VS: ?85/53, 79, 16, 99% on room air. ? General: ?Thin and cachectic looking, Alert oriented x3 no acute distress.? Speaking full sentences.? Speech is well articulated, thought process is coherent.? Following all commands. Skin:? Nasal abrasion over the nose, healing appearance, otherwise intact, no lesions, edema, erythema, clubbing or cyanosis.? No ulcers. HEENT:? Head is normocephalic, atraumatic, pupils equal round reactive to light accommodation bilaterally.? Extraocular movements appear intact.? Buccal mucosa is moist, Neck is supple without lymphadenopathy. Cardiac:? Clear S1-S2, no murmurs rubs or gallops. R neck tripple lumen CVL. Pulmonary:? Clear to auscultation, no wheezes, rales or rhonchi. Abdomen:? Protuberant, positive bowel sounds in all 4 quadrants.? Soft, nontender, no rebound or guarding.? His penis has a necrotic thin tissue coming from the side of the left glance area which is soft, nontender, Barry catheter is in place with cloudy urine. ? Musculoskeletal:? Moving all 4 extremities upon request a major joints, there is no crepitus or tenderness.? The strength is 5/5 bilaterally and throughout all 4 extremities.? There is no leg edema , no calf tenderness , no leg asymmetry.? Gait not assessed at this point. Neurologic:? As above, cranial nerves 2-12 are grossly intact.? No focal deficits noted. Vascular:? 2+ pulses upper and lower extremities distally. ?Less than 2nd capillary refill of the finger and toes bilaterally. ? SIGNIFICANT LABORATORY DATA:? As above ? REVIEW OF IMAGES: ?As above Review of last echo done on 09/08/21 Normal LV systolic function with impaired relaxation filling pattern with reduced global longitudinal strain, marker for systolic function, trivial a are, no gross pericardial effusion, estimated EF is 55-60%.? Normal right ventricular cavity size and systolic function, trace mitral regurg, trace pulmonic regurg. ? EKG REVIEW: ? to my view this is normal sinus rhythm 79 beats per minute. There is nonspecific changes of the ST segment and Q-waves present from prior studies, however degrees new T-wave inversions in leads 2 3 and AVF. QT 400. ? ASSESSMEN: 1. Systemic inflammatory response syndrome (no evidence of sepsis at this point despite of the hypotension is not febrile, no white count, no leukopenia, lactic acid is normal) 2. ?UTI 3. Acute kidney injury due to volume depletion (baseline Cr 1.3) 4. Hypoalbuminemia 5. ?Chronic normocytic anemia 6. Elevated troponin and EKG changes rule out NSTEMI which in light of hypotension question possibility of cardiogenic shock 7. Hypertension likely due to the above however he is also on beta-joey and given the renal failure could be a retention of the byproduct. 8. History of DVT, PE, recent penile left corpora Carvernosa thrombi PLAN OF CARE: Patient will be admitted to ICU, on monitor I's and O?s, monitor vital signs, will trend the troponins and repeat EKG in the morning.? At this point I will not continue with Eliquis given the renal failure, rather I will switch him to heparin drip per ACS protocol without a load. ?Will continue with Levophed. Will also repeat laboratories for the morning further assess the renal function if not better, will ask the urologist to evaluate the patient for the mild hydroureteronephrosis can worsen and he may need a revision of the stent if that is the case, as well as the presence of the dark penile tissue around the glands. I will order albumin salt and limit further IV fluids for am concerned that the patient may developed CHF.? Will hold any other nephrotoxins and hold all blood pressure medications until he stabilizes. ? Given how ill the patient has been for the past couple of months, I wonder if he is suffering from underlying adrenal insufficiency, hydrocortisone IV x1 100 mg will be given. ? Will give him oral aspirin given the EKG changes, elevated troponin and prior history of [place] GI PROPHYLAXIS:? Oral PPI DVT PROPHYLAXIS:? Heparin GTT; once renal function is better, he maybe switch back to Eliquis which may be lifelong given his prior history of DVT and PE. Critical care time used for critical evaluation of this patient, diagnosis, treatment and coordination of care, review her records and documentation?TOTAL CRITICAL CARE TIME 120?MIN . Patient's care was discussed in detail with Dr. Ureña.? He is aware of all the above as well as the plan of care for this patient. [facility] Past Medical History Medical History Accelerated essential hypertension HTN (hypertension) Hypercholesterolemia Hyperlipidemia OA (osteoarthritis) Penile mass Pulmonary embolism Shortness of breath Surgical History Surgical History History of surgery Social History Social History Household Members: Significant Other Housing: House Do you presently have visiting nurse or other home services: No Patient Tobacco Use Status: Never used Tobacco e-Cigarette/Vaping Use: Never Used Second Hand Smoke Exposure: No Currently Displaying Signs/Symptoms of Drug Intoxication Withdrawal: No Advance Directives: Yes Advance Directives on File: Yes Advance Directives Date on File: 09/21/21 service: No Current occupational status: unemployed and retired Meds Allergies Allergy/AdvReac Type Severity Reaction Status Date / Time No Known Allergies Allergy Verified 10/25/21 08:15 Active Medications: Current Medications Norepinephrine Bitartrate (Levophed) 8 mg in 250 mls @ 0 mls/hr IVCONT .Q0M MIKKI; Protocol Albumin Human (Kedbumin 25 %) 100 mls @ 100 mls/hr IV Q1H MIKKI Stop: 10/26/21 03:14 Pharmacy Consult (Consult Rx Perform Med Rec) 1 each MISCELLANE ONCE PRN PRN Reason: Consult order Home Medications Medication Instructions Recorded Confirmed Last Taken Type rosuvastatin 10 mg tablet 1 tab PO BEDTIME 09/07/21 10/26/21 Unknown History apixaban 2.5 mg tablet (Eliquis) 2.5 mg PO BID 10/25/21 10/26/21 Unknown History Physical Exam Vital Signs: Vital Signs: Last Vital Signs Temp 97.7 F 10/25/21 22:50 Pulse 79 10/26/21 00:16 Resp 16 10/26/21 00:16 BP 85/53 L 10/26/21 00:16 Pulse Ox 99 10/26/21 00:16 O2 Del Method 10/26/21 00:16 BMI result Body Mass Index 19.6 Results Labs CBC and Chem 7: 10/26/21 05:15 10/26/21 05:15 Labs: Laboratory Results - last 24 hr 10/25/21 10/25/21 10/25/21 22:12 22:12 22:12 MCV 85.9 MCH 28.5 MCHC 33.2 RDW 15.2 Plt Count 243 D MPV 9.0 L Immature Gran % (Auto) 0.5 H Neut % (Auto) 80.0 H Lymph % (Auto) 9.3 L [place] % (Auto) 9.9 Eos % (Auto) 0.0 Baso % (Auto) 0.3 Lymph # (Auto) 0.6 L [place] # (Auto) 0.6 Eos # (Auto) 0.0 Baso # (Auto) 0.0 Abs Immat Gran (auto) 0.03 Absolute Neuts (auto) 5.2 Absolute Nucleated RBC 0.000 Nucleated RBC % (auto) 0.0 PT 17.2 H INR 1.5 H Anion Gap 15 Estim Creat Clear Calc 28.3 Estimated GFR 34 Random Glucose 180 H D Lactic Acid Calcium 9.8 D Total Bilirubin 1.4 H Direct Bilirubin 0.5 AST 25 D ALT 7 Alkaline Phosphatase 67 D B-Natriuretic Peptide Total Protein 6.1 L Albumin 2.6 L Urine Color Urine Appearance Urine pH Ur Specific [place] Urine Protein Urine Glucose (UA) Urine Ketones Urine Blood Urine Nitrite Ur Leukocyte Esterase Urine RBC Urine WBC Ur Squamous Epith Cells Urine Bacteria COVID-19 (CRISTIAN) COVID-19 Clin Com 10/25/21 10/25/21 10/25/21 22:12 22:12 22:12 MCV MCH MCHC RDW Plt Count MPV Immature Gran % (Auto) Neut % (Auto) Lymph % (Auto) [place] % (Auto) Eos % (Auto) Baso % (Auto) Lymph # (Auto) [place] # (Auto) Eos # (Auto) Baso # (Auto) Abs Immat Gran (auto) Absolute Neuts (auto) Absolute Nucleated RBC Nucleated RBC % (auto) PT INR Anion Gap Estim Creat Clear Calc Estimated GFR Random Glucose Lactic Acid 1.5 Calcium Total Bilirubin Direct Bilirubin AST ALT Alkaline Phosphatase B-Natriuretic Peptide 182 H Total Protein Albumin Urine Color Urine Appearance Urine pH Ur Specific [place] Urine Protein Urine Glucose (UA) Urine Ketones Urine Blood Urine Nitrite Ur Leukocyte Esterase Urine RBC Urine WBC Ur Squamous Epith Cells Urine Bacteria COVID-19 (CRISTIAN) Negative COVID-19 Clin Com See Note 10/25/21 22:44 MCV MCH MCHC RDW Plt Count MPV Immature Gran % (Auto) Neut % (Auto) Lymph % (Auto) [place] % (Auto) Eos % (Auto) Baso % (Auto) Lymph # (Auto) [place] # (Auto) Eos # (Auto) Baso # (Auto) Abs Immat Gran (auto) Absolute Neuts (auto) Absolute Nucleated RBC Nucleated RBC % (auto) PT INR Anion Gap Estim Creat Clear Calc Estimated GFR Random Glucose Lactic Acid Calcium Total Bilirubin Direct Bilirubin AST ALT Alkaline Phosphatase B-Natriuretic Peptide Total Protein Albumin Urine Color BROWN A Urine Appearance CLOUDY Urine pH 6.0 Ur Specific [place] 1.015 Urine Protein 2+ H Urine Glucose (UA) NEG Urine Ketones NEG Urine Blood 3+ H Urine Nitrite NEG Ur Leukocyte Esterase 3+ H Urine RBC 1-4 Urine WBC TNTC H Ur Squamous Epith Cells 1+ Urine Bacteria 3+ COVID-19 (CRISTIAN) COVID-19 Clin Com Imaging Radiologist's Impressions: Impressions Abdomen/Pelvis CT 10/25/21 23:52 IMPRESSION: Prominent bladder wall thickening with adjacent inflammation, concerning for infectious process. Numerous bladder calculi. Left ureteral stent in place. Mild left hydroureteronephrosis noted. Enlarged left pelvic lymph nodes, similar to mildly increased in size when compared to prior. Cholelithiasis. Fleischner guidelines were followed.
--- NOTE | 2021-10-26 00:52 | PC.NURSE ---
PATIENT WAS INC OF URINE ,CARE GIVEN ,BEDDING CHANGE .
--- NOTE | 2021-10-26 00:58 | PC.NURSE ---
indwelling hernandez removed approx 2300 upon arrival, 30cc balloon noted to only have 8cc. brownish pus draining from penis. straight catheter unsuccessful. at approx 0030, MD montez placed central line, pt tolerated procedure well. per dr montez hold norepi infusion until Central line is confirmed. pt hypotensive, positioned in trendelenberg. friend/caregiver at bedside
[2021-10-26 01:10] LABS: Partial Thromboplastin Time 31.4 SEC (26.0-36.4)
[2021-10-26] MEDS: Albumin Human 25 % 100 ML IV ×3 (01:14→03:33)
--- NOTE | 2021-10-26 01:20 | PC.NURSE ---
per MD montez, states no heparin per cardiology
[2021-10-26] MEDS: Lidocaine HCl 2 % Urojet 10 ML JEL.PF.APP TOPICAL (01:56)
[2021-10-26] MEDS: Heparin Sodium,Porcine/1/2NS 25,000 UNIT/250 ML IV.SOLN 9.21 UNIT IVCONT (02:51)
[2021-10-26] MEDS: Hydrocortisone Sod Succ/PF 100 MG VIAL IVPUSH (04:06)
[2021-10-26 05:30] LABS: MANUAL DIFF FLAG NO
[2021-10-26 05:34] LABS: Basophils Percent Auto 0.4 % (0-2); Hematocrit 23.6 % (42.0-52.0); Hemoglobin 7.9 g/dl (14.0-18.0); Imm Gran Abs Auto 0.02 X10*3/uL (0.00-0.03); Imm Gran Pct Auto 0.4 % (0.0-0.4); Lymphocytes Absolute Auto 0.7 X10*3/uL (1.2-4.9); Lymphocytes Percent Auto 11.9 % (20-40); Mean Corpuscular HGB Conc 33.5 g/dl (31.0-36.0); Mean Corpuscular Volume 86.8 fL (80.0-98.0); Mean Platelet Volume 9.2 fL (9.4-12.4); Monocytes Absolute Auto 0.5 X10*3/uL (0.1-1.2); Monocytes Percent Auto 9.1 % (2-11); Neutrophils Absolute Auto 4.5 x10*3/uL (2.0-8.3); Neutrophils Percent Auto 78.2 % (45-73); Platelet Count 213 X10*3/uL (160-400); Red Blood Count 2.72 X10*6/uL (4.60-5.80); Red Cell Distribution Width 15.6 % (11.0-16.0); White Blood Count 5.7 X10*3/uL (4.8-10.8)
[2021-10-26] MEDS: Lactated Ringers 1,000 ML 100 ML IVCONT ×2 (05:42→12:36)
[2021-10-26 05:53] LABS: Alanine Aminotransferase < 6 U/L (0-40); Albumin Level 3.6 g/dL (3.5-5.0); Alkaline Phosphatase 54 U/L (39-117); Anion Gap 16 (12-20); Aspartate Amino Transferase 16 U/L (5-37); Bilirubin Total 1.3 mg/dL (0.0-1.0); Blood Urea Nitrogen 28 mg/dL (9-16); Calcium 10.1 mg/dL (8.4-10.2); Carbon Dioxide 22 mmol/L (22-29); Chloride 102 mmol/L (96-108); Creatinine Clr Calc Pharmacy 31.4; Estimated Glomerular Filt Rate 35; Glucose Random 190 mg/dL (60-115); Sodium 136 mmol/L (135-145); Total Protein 6.2 g/dL (6.5-8.0)
--- NOTE | 2021-10-26 06:42 | PC.NURSE ---
ADMIT TO 260-1..AWAKE..CONVERSES..VAGUE RESPONSES AND FORGETFUL....LEVOPHED DRIP TITRATED TO 0.18 MCG/KG/MIN FOR LOW BP..TAPIA SEDIMENTED URINE..HEPARIN DRIP STARTED 14 UNITS/KG/HR PER ICU PA (NO BOLUS)....SOLUCORTEF 100 MG X1....LR 100 CC/HR STARTED...1ST DOSE MEROPENUM INFUSED W/O INCIDENT...CVP MONITOR=8... AT BEDSIDE FOR BEDSIDE ECHO....NSR..NO ECTOPY..DENIES DISCOMFORT...PENIS HAS FLAP OF SKIN..ICU PA PREVIOUSLY REVIEWED/ASSESSED..?UROLOGY CONSULT
--- NOTE | 2021-10-26 07:00 | CA_ITS ---
Transthoracic Echocardiogram Patient (Last, First, Middle): Festus Valenzuela J Gender: Male Date of : 1940 Age: 81 Procedure Date: 10/26/2021 Procedure Type: Transthoracic Echocardiogram Location: ICU Height: 182.88 cm Weight: 71.67 kg BSA: 1.93 m2 Heart Rate: 82 bpm BP: 105 / 55 mmHg Issuing Operator: SAMMY Referring MD: Vanesa Moss MD Symptoms: new IW STT changes Study Quality: Adequate w contrast ECG Rhythm: Sinus Conclusions: - The left ventricular systolic function is severely decreased. The visually estimated ejection fraction is between 25-30%. - The entire apex, the mid anterior, mid inferoseptal, and mid anteroseptal segments are akinetic. - There is mild calcification of the aortic valve. - There is mild mitral annular calcification. - Mild to moderate pulmonary hypertension is present. Findings Procedure Information Contrast agent, definity, is being given per protocol without apparent complications. Left Ventricle Normal left ventricular cavity size. The left ventricular systolic function is severely decreased. The visually estimated ejection fraction is between 25-30%. There is evidence of regional wall motion abnormalities. E/E prime ratio is between 8 and 15 consistent with indeterminate filling pressures. Evidence suggests grade II (moderate) diastolic dysfunction. There is mild septal asymmetric hypertrophy. Wall Motion Rest Echo Findings The entire apex, the mid anterior, mid inferoseptal, and mid anteroseptal segments are akinetic. Right Ventricle Mildly increased right ventricular cavity size. Aortic Valve There is a normal trileaflet aortic valve. There is mild calcification of the aortic valve. There is no aortic valve stenosis. There is trace (trivial) aortic valve regurgitation. Mitral Valve The mitral valve appears normal. There is mild mitral annular calcification. There is trace mitral valve regurgitation. There is no mitral valve stenosis. Pulmonic Valve The pulmonic valve is likely normal. Tricuspid Valve Normal tricuspid valve structure. There is mild tricuspid valve regurgitation. The right ventricular systolic pressure is 51 mmHg. Mild to moderate pulmonary hypertension is present. Great Vessels The asc aorta is normal in size. Venous The inferior vena cava is mildly dilated and collapses less than 50% with inspiration. Pericardium/Pleural There is no evidence of pericardial effusion. Prior Study Comparison Changes noted compared to prior study dated: 09/08/2021. Decrease in LVEF. Measurements 2D Linear Measurements IVSd: 1.12 0.6-0.9/0.6-1.0 cm LVIDd: 5.26 3.9-5.3/4.2-5.9 cm LVIDd Index: 2.73 2.4-3.2/2.2-3.1 cm/m2 LVIDs: 3.55 2.0-3.6 cm LVPWd: 0.83 0.7-1.1 cm LV Mass: 238.61 67-162/88-224 g LV Mass Index: 123.63 43-95/49-115 g/m2 LVOT Diam: 2.00 3.0+(-)1.3 cm 2D Systolic Function EF 4C: 39.20 >55% EF 2C: 32.80 >55% EF BiP: 35.40 >55% Mitral Valve MV Pk E: 1.16 MV PK A: 0.57 MV Decel Time: 136.00 E/A: 2.00 E'Lateral: 12.20 E'Medial: 6.96 E/E' Med: 16.70 E/E' Lat: 9.50 PHT: 40.00 MVA PHT: 5.50 Decel [place]: 8.51 Aortic Valve AoV Pk Live: 1.44 AoV Mn Live: 1.09 AoV VTI: 0.30 AoV Pk Grad: 8.00 Aov Mn Grad: 5.00 TRINITY Cont.VTI: 2.33 LVOT LVOT Pk Live: 1.15 LVOT Mn Live: 0.81 LVOT VTI: 0.22 LVOT Pk Grad: 5.00 LVOT Mn Grad: 3.00 LVOT Diam: 2.00 LVOT Area: 3.14 Diastolic Function MV Pk E: 1.16 MV Pk A: 0.57 E/A: 2.00 E'Medial: 6.96 E/E' Med: 16.70 E' Laterial: 12.20 E/E' Lat: 9.50 Tricuspid Valve TR Pk Live: 3.00 TR Pk Grad: 36.00 RA Press: 15.00 RVSP: 51.00 Great Vessels Aorta Sinus of Valsalva: 3.52 2.0-3.[address] [place]: 2.58 1.7-3.4 cm Ao Asc: 3.70 2.1-3.4 cm Updated in Other Vendor System with Status of Final Jose Guadalupe Smith MD electronically signed on 10/26/2021 3:48:58 PM with status of Final
--- NOTE | 2021-10-26 07:53 | PHA.MEDREC ---
Pharmacy Consult ? Medication Reconciliation Pharmacy has completed the medication reconciliation. Reviewed med rec done by nursing
[2021-10-26 09:34] LABS: PTT Heparin Drip 63.1 SEC (53-77.9)
--- NOTE | 2021-10-26 10:49 | PM.CCPN ---
Subjective Subjective Date of Service: 10/26/21 Interval History: when he awoke he was somewhat agitated I think clearly displaying features of dementia but he presented with hypotension and altered mental status somewhat elevated white count but 6 significant evidence of urinary tract infection and apparently had that recently and had a ureteral stent put in but presents with high white count and leukocyte esterase in the urine as the probable source after giving him volume central venous pressure line was placed demonstrating CVP of about 9 to 10 and begin and then placed on maintenance fluid and started on Levophed for the balance of the blood pressure support and my bedside echo did demonstrate a a almostTakotsubo like apical wall motion abnormality but he did developed progressive R-wave loss with progressive ST segment depression across mentally precordial leads but inferior leads as well and he has an underlying nonspecific intraventricular conduction defect in sinus rhythm but clearly a progressive change with a troponin that 2 weeks ago peak did 2000 and was resolving and he come in again at 4000 peaking at 5000 this time Critical Care Time (minutes): 60 Physical Exam Vital Signs: Vital Signs: Last Vital Signs Temp 97.7 F 10/26/21 10:00 Pulse 79 10/26/21 10:00 Resp 24 H 10/26/21 10:00 BP 120/64 10/26/21 10:24 Pulse Ox 94 10/26/21 10:00 O2 Del Method 10/26/21 10:00 BMI result Body Mass Index 21.4 currently pressure is 120 systolic sinus rhythm at 75 oxygen saturation 93-94 awake with some degree of confusion and a little bit of agitation but skin color is normal ease nonfocal neurologically bedside echo with large apical defect so considerable reduction of EGD ejection fraction lungs are clear both by chest x-ray and exam no accessory muscle no tachypnea no diaphragm abdomen is soft benign no organomegaly Objective Data Labs CBC & Chem 7: 10/26/21 05:15 10/26/21 05:15 Labs: Laboratory Results - last 24 hr 10/25/21 10/25/21 10/25/21 22:12 22:12 22:12 WBC 6.5 RBC 3.26 L Hgb 9.3 L Hct 28.0 L MCV 85.9 MCH 28.5 MCHC 33.2 RDW 15.2 Plt Count 243 D MPV 9.0 L Immature Gran % (Auto) 0.5 H Neut % (Auto) 80.0 H Lymph % (Auto) 9.3 L [place] % (Auto) 9.9 Eos % (Auto) 0.0 Baso % (Auto) 0.3 Lymph # (Auto) 0.6 L [place] # (Auto) 0.6 Eos # (Auto) 0.0 Baso # (Auto) 0.0 Abs Immat Gran (auto) 0.03 Absolute Neuts (auto) 5.2 Absolute Nucleated RBC 0.000 Nucleated RBC % (auto) 0.0 PT 17.2 H INR 1.5 H APTT 31.4 aPTT Heparin Protocol Sodium 132 L Potassium 4.4 Chloride 100 Carbon Dioxide 21 L Anion Gap 15 BUN 27 H Creatinine 1.90 H Estim Creat Clear Calc 28.3 Estimated GFR 34 Random Glucose 180 H D Lactic Acid Calcium 9.8 D Total Bilirubin 1.4 H Direct Bilirubin 0.5 AST 25 D ALT 7 Alkaline Phosphatase 67 D Troponin I High Sens B-Natriuretic Peptide Total Protein 6.1 L Albumin 2.6 L Urine Color Urine Appearance Urine pH Ur Specific [place] Urine Protein Urine Glucose (UA) Urine Ketones Urine Blood Urine Nitrite Ur Leukocyte Esterase Urine RBC Urine WBC Ur Squamous Epith Cells Urine Bacteria COVID-19 (CRISTIAN) COVID-19 Clin Com 10/25/21 10/25/21 10/25/21 22:12 22:12 22:12 WBC RBC Hgb Hct MCV MCH MCHC RDW Plt Count MPV Immature Gran % (Auto) Neut % (Auto) Lymph % (Auto) [place] % (Auto) Eos % (Auto) Baso % (Auto) Lymph # (Auto) [place] # (Auto) Eos # (Auto) Baso # (Auto) Abs Immat Gran (auto) Absolute Neuts (auto) Absolute Nucleated RBC Nucleated RBC % (auto) PT INR APTT aPTT Heparin Protocol Sodium Potassium Chloride Carbon Dioxide Anion Gap BUN Creatinine Estim Creat Clear Calc Estimated GFR Random Glucose Lactic Acid 1.5 Calcium Total Bilirubin Direct Bilirubin AST ALT Alkaline Phosphatase Troponin I High Sens 4724.1 H* D B-Natriuretic Peptide 182 H Total Protein Albumin Urine Color Urine Appearance Urine pH Ur Specific [place] Urine Protein Urine Glucose (UA) Urine Ketones Urine Blood Urine Nitrite Ur Leukocyte Esterase Urine RBC Urine WBC Ur Squamous Epith Cells Urine Bacteria COVID-19 (CRISTIAN) Negative COVID-19 Clin Com See Note 10/25/21 10/26/21 10/26/21 22:44 00:43 05:15 WBC 5.7 RBC 2.72 L Hgb 7.9 L Hct 23.6 L MCV 86.8 MCH 29.0 MCHC 33.5 RDW 15.6 Plt Count 213 MPV 9.2 L Immature Gran % (Auto) 0.4 Neut % (Auto) 78.2 H Lymph % (Auto) 11.9 L [place] % (Auto) 9.1 Eos % (Auto) 0.0 Baso % (Auto) 0.4 Lymph # (Auto) 0.7 L [place] # (Auto) 0.5 Eos # (Auto) 0.0 Baso # (Auto) 0.0 Abs Immat Gran (auto) 0.02 Absolute Neuts (auto) 4.5 Absolute Nucleated RBC 0.000 Nucleated RBC % (auto) 0.0 PT INR APTT aPTT Heparin Protocol Sodium Potassium Chloride Carbon Dioxide Anion Gap BUN Creatinine Estim Creat Clear Calc Estimated GFR Random Glucose Lactic Acid Calcium Total Bilirubin Direct Bilirubin AST ALT Alkaline Phosphatase Troponin I High Sens 5532.5 H* B-Natriuretic Peptide Total Protein Albumin Urine Color BROWN A Urine Appearance CLOUDY Urine pH 6.0 Ur Specific [place] 1.015 Urine Protein 2+ H Urine Glucose (UA) NEG Urine Ketones NEG Urine Blood 3+ H Urine Nitrite NEG Ur Leukocyte Esterase 3+ H Urine RBC 1-4 Urine WBC TNTC H Ur Squamous Epith Cells 1+ Urine Bacteria 3+ COVID-19 (CRISTIAN) COVID-19 Clin Com 10/26/21 10/26/21 10/26/21 05:15 05:15 09:20 WBC RBC Hgb Hct MCV MCH MCHC RDW Plt Count MPV Immature Gran % (Auto) Neut % (Auto) Lymph % (Auto) [place] % (Auto) Eos % (Auto) Baso % (Auto) Lymph # (Auto) [place] # (Auto) Eos # (Auto) Baso # (Auto) Abs Immat Gran (auto) Absolute Neuts (auto) Absolute Nucleated RBC Nucleated RBC % (auto) PT INR APTT aPTT Heparin Protocol 63.1 Sodium 136 Potassium 4.0 Chloride 102 Carbon Dioxide 22 Anion Gap 16 BUN 28 H Creatinine 1.87 H Estim Creat Clear Calc 31.4 Estimated GFR 35 Random Glucose 190 H Lactic Acid Calcium 10.1 Total Bilirubin 1.3 H Direct Bilirubin AST 16 ALT < 6 Alkaline Phosphatase 54 Troponin I High Sens 4493.7 H* B-Natriuretic Peptide Total Protein 6.2 L Albumin 3.6 D Urine Color Urine Appearance Urine pH Ur Specific [place] Urine Protein Urine Glucose (UA) Urine Ketones Urine Blood Urine Nitrite Ur Leukocyte Esterase Urine RBC Urine WBC Ur Squamous Epith Cells Urine Bacteria COVID-19 (CRISTIAN) COVID-19 Clin Com Progress Note: A&P Assessment and plan (1) BPH w urinary obs/LUTS: Status: Acute (2) Urinary retention: Status: Acute (3) Sepsis: Status: Acute (4) Urinary tract infection: Status: Acute (5) Acute subendocardial [place] of anterior wall: Status: Acute (6) Altered mental status: Status: Acute (7) Acute renal failure superimposed on stage 2 chronic kidney disease: Status: Acute Plan given the sensitivity to ceftriaxone of the previous Proteus and Morganella organisms will continue ceftriaxone and following CVP currently at 9 on IV fluids namely Ringer's lactate and of course if mental status improves and agitation is somewhat diminished we can have the patient decide about cardiac catheterization which I believe he needs Quality Stroke Does the patient have a stroke diagnosis?: No VTE Prior VTE?: No VTE Risk Level:: Medical - moderate - high VTE Device Contraindication: N/A - Device Ordered VTE Drug Contraindication: N/A - Med Ordered
--- NOTE | 2021-10-26 11:44 | PM.CNCAR ---
History of Present Illness History of Present Illness Date of Service: 10/26/21 Chief complaint: ? Sepsis Narrative: This is a cardiology consultation regarding non ST-elevation myocardial infarction. Patient is admitted mainly for urosepsis. According to admission documentation, there were problems with Barry catheter and that led to EMS evaluation. Then he was found to have blood pressure in the 60s. Then in the ER, found to have blood pressure in the 80s. Then subsequently thought to have urosepsis and also found to have elevated troponins. Admitted to the hospital for further evaluation. He is now in the ICU. He is on pressors. When I questioned him regarding cardiac symptoms like chest pain, he stating no. Also denies any other complaints like shortness of breath or palpitations or in fact anything cardiac related. However, he seems somewhat confused and hence not clear, he can be relied upon. Review of Systems Review of Systems: Yes all other systems are reviewed and are negative Constitutional: Constitutional: Reports as per HPI Eyes: Eyes: Reports as per HPI ENT: Reports as per HPI Cardiovascular: Cardiovascular: Reports as per HPI, Denies acrocyanosis, Denies cool extremities, Denies chest pain, Denies leg edema, Denies lightheadedness, Denies palpitations and Denies dyspnea Respiratory: Respiratory: Reports as per HPI, Reports no additional respiratory complaints and Denies dyspnea Gastrointestinal: Gastrointestinal: Reports as per HPI and Reports no additional gastrointestinal complaints Genitourinary: Genitourinary: Reports no additional male genitourinary complaints and Reports as per HPI Musculoskeletal: Musculoskeletal: Reports no additional musculoskeletal complaints and Reports as per HPI Integumentary/Breasts: Skin/Breast: Reports system reviewed and no additional complaints, except as docu Neurologic: Reports system reviewed and no additional complaints, except as documented, Reports as per HPI and Reports confusion Psychiatric: Psychiatric: Reports no additional psychiatric complaints, Reports as per HPI and Reports confusion Endocrine: Endocrine: Reports no additional endocrine complaints, Reports as per HPI and Denies palpitations Hematologic/Lymphatic: Hematologic/Lymphatic: Reports no additional hematologic/lymphatic complaints and Reports as per HPI Allergic/Immunologic: Allergic/Immunologic: Reports no additional allergic/immunologic complaints and Reports as per HPI PMFSH Past Medical History Medical History Accelerated essential hypertension HTN (hypertension) Hypercholesterolemia Hyperlipidemia OA (osteoarthritis) Penile mass Pulmonary embolism Shortness of breath Family History Pertinent family history: Discussed with patient about family history but he states he does not know any details. Surgical History Surgical History History of surgery Social History Social History Household Members: Significant Other Housing: House Do you presently have visiting nurse or other home services: No Patient Tobacco Use Status: Never used Tobacco e-Cigarette/Vaping Use: Never Used Second Hand Smoke Exposure: No Advance Directives: Yes Advance Directives on File: Yes Advance Directives Date on File: 09/21/21 service: No Current occupational status: retired Meds Allergies Allergy/AdvReac Type Severity Reaction Status Date / Time No Known Allergies Allergy Verified 10/25/21 08:15 Active Medications: Current Medications Aspirin (Aspirin 81 Mg Tab.Chew) 81 mg PO DAILY [facility] Last Admin: 10/26/21 10:23 Dose: Not Given Norepinephrine Bitartrate (Levophed) 8 mg in 250 mls @ 0 mls/hr IVCONT .Q0M MIKKI; Protocol Last Titration: 10/26/21 10:24 Dose: 0.16 mcg/kg/min, 19.73 mls/hr Heparin Sodium/Sodium Chloride () 25,000 unit in 250 mls @ 0 mls/hr IVCONT .Q0M MIKKI; Protocol Last Admin: 10/26/21 02:51 Dose: 14 units/kg/hr, 9.21 mls/hr Lactated Ringer's (Lr) 1,000 mls @ 100 mls/hr IVCONT .Q10H MIKKI Last Admin: 10/26/21 05:42 Dose: 100 mls/hr Ceftriaxone Sodium 1 gm/ (Sodium Chloride) 50 mls @ 100 mls/hr IV Q24H [facility] Pharmacy Consult (Consult Rx Perform Med Rec) 1 each MISCELLANE ONCE PRN PRN Reason: Consult order Home Medications Medication Instructions Recorded Confirmed Last Taken Type rosuvastatin 10 mg tablet 1 tab PO BEDTIME 09/07/21 10/26/21 Unknown History apixaban 2.5 mg tablet (Eliquis) 2.5 mg PO BID 10/25/21 10/26/21 Unknown History Physical Exam Vital Signs: Vital Signs: Last Vital Signs Temp 97.5 F 10/26/21 11:00 Pulse 79 10/26/21 11:00 Resp 23 H 10/26/21 11:00 BP 115/68 10/26/21 11:00 Pulse Ox 94 10/26/21 11:00 O2 Del Method 10/26/21 11:00 BMI result Body Mass Index 21.4 Const: General: cooperative, comfortable, no acute distress, confusion, ill appearing and lethargic Orientation/consciousness: No patient oriented x3, confusion and lethargic HEENT: Other: Unremarkable Head: Yes normal to inspection Neck: Neck: Yes normal visual inspection Chest: Chest palpation & inspection: normal inspection of the chest Resp: Auscultation: clear to auscultation bilaterally Cardio: Palpation: normal PMI Heart sounds: S1 normal heart sound present, S2 normal heart sound present, no gallops, no murmurs and no rubs GI: Palpation (GI): Soft to palpation Back/Spine/Pelvis: Other: unremarkable Skin: General skin exam: no rashes or lesions noted Neuro: General: No patient oriented x3, no focal motor deficits and confusion Extrem: General: Yes normal to inspection Psych: Mental Status: mental status grossly abnormal Objective Labs and Meds Result diagrams: 10/26/21 05:15 10/26/21 05:15 Lab results: Laboratory Results - last 24 hr 10/25/21 10/25/21 10/25/21 22:12 22:12 22:12 WBC 6.5 RBC 3.26 L Hgb 9.3 L Hct 28.0 L MCV 85.9 MCH 28.5 MCHC 33.2 RDW 15.2 Plt Count 243 D MPV 9.0 L Immature Gran % (Auto) 0.5 H Neut % (Auto) 80.0 H Lymph % (Auto) 9.3 L [place] % (Auto) 9.9 Eos % (Auto) 0.0 Baso % (Auto) 0.3 Lymph # (Auto) 0.6 L [place] # (Auto) 0.6 Eos # (Auto) 0.0 Baso # (Auto) 0.0 Abs Immat Gran (auto) 0.03 Absolute Neuts (auto) 5.2 Absolute Nucleated RBC 0.000 Nucleated RBC % (auto) 0.0 PT 17.2 H INR 1.5 H APTT 31.4 aPTT Heparin Protocol Sodium 132 L Potassium 4.4 Chloride 100 Carbon Dioxide 21 L Anion Gap 15 BUN 27 H Creatinine 1.90 H Estim Creat Clear Calc 28.3 Estimated GFR 34 Random Glucose 180 H D Lactic Acid Calcium 9.8 D Total Bilirubin 1.4 H Direct Bilirubin 0.5 AST 25 D ALT 7 Alkaline Phosphatase 67 D Troponin I High Sens B-Natriuretic Peptide Total Protein 6.1 L Albumin 2.6 L Urine Color Urine Appearance Urine pH Ur Specific [place] Urine Protein Urine Glucose (UA) Urine Ketones Urine Blood Urine Nitrite Ur Leukocyte Esterase Urine RBC Urine WBC Ur Squamous Epith Cells Urine Bacteria COVID-19 (CRISTIAN) COVID-19 Clin Com 10/25/21 10/25/21 10/25/21 22:12 22:12 22:12 WBC RBC Hgb Hct MCV MCH MCHC RDW Plt Count MPV Immature Gran % (Auto) Neut % (Auto) Lymph % (Auto) [place] % (Auto) Eos % (Auto) Baso % (Auto) Lymph # (Auto) [place] # (Auto) Eos # (Auto) Baso # (Auto) Abs Immat Gran (auto) Absolute Neuts (auto) Absolute Nucleated RBC Nucleated RBC % (auto) PT INR APTT aPTT Heparin Protocol Sodium Potassium Chloride Carbon Dioxide Anion Gap BUN Creatinine Estim Creat Clear Calc Estimated GFR Random Glucose Lactic Acid 1.5 Calcium Total Bilirubin Direct Bilirubin AST ALT Alkaline Phosphatase Troponin I High Sens 4724.1 H* D B-Natriuretic Peptide 182 H Total Protein Albumin Urine Color Urine Appearance Urine pH Ur Specific [place] Urine Protein Urine Glucose (UA) Urine Ketones Urine Blood Urine Nitrite Ur Leukocyte Esterase Urine RBC Urine WBC Ur Squamous Epith Cells Urine Bacteria COVID-19 (CRISTIAN) Negative COVID-19 Clin Com See Note 10/25/21 10/26/21 10/26/21 22:44 00:43 05:15 WBC 5.7 RBC 2.72 L Hgb 7.9 L Hct 23.6 L MCV 86.8 MCH 29.0 MCHC 33.5 RDW 15.6 Plt Count 213 MPV 9.2 L Immature Gran % (Auto) 0.4 Neut % (Auto) 78.2 H Lymph % (Auto) 11.9 L [place] % (Auto) 9.1 Eos % (Auto) 0.0 Baso % (Auto) 0.4 Lymph # (Auto) 0.7 L [place] # (Auto) 0.5 Eos # (Auto) 0.0 Baso # (Auto) 0.0 Abs Immat Gran (auto) 0.02 Absolute Neuts (auto) 4.5 Absolute Nucleated RBC 0.000 Nucleated RBC % (auto) 0.0 PT INR APTT aPTT Heparin Protocol Sodium Potassium Chloride Carbon Dioxide Anion Gap BUN Creatinine Estim Creat Clear Calc Estimated GFR Random Glucose Lactic Acid Calcium Total Bilirubin Direct Bilirubin AST ALT Alkaline Phosphatase Troponin I High Sens 5532.5 H* B-Natriuretic Peptide Total Protein Albumin Urine Color BROWN A Urine Appearance CLOUDY Urine pH 6.0 Ur Specific [place] 1.015 Urine Protein 2+ H Urine Glucose (UA) NEG Urine Ketones NEG Urine Blood 3+ H Urine Nitrite NEG Ur Leukocyte Esterase 3+ H Urine RBC 1-4 Urine WBC TNTC H Ur Squamous Epith Cells 1+ Urine Bacteria 3+ COVID-19 (CRISTIAN) COVID-19 Clin Com 10/26/21 10/26/21 10/26/21 05:15 05:15 09:20 WBC RBC Hgb Hct MCV MCH MCHC RDW Plt Count MPV Immature Gran % (Auto) Neut % (Auto) Lymph % (Auto) [place] % (Auto) Eos % (Auto) Baso % (Auto) Lymph # (Auto) [place] # (Auto) Eos # (Auto) Baso # (Auto) Abs Immat Gran (auto) Absolute Neuts (auto) Absolute Nucleated RBC Nucleated RBC % (auto) PT INR APTT aPTT Heparin Protocol 63.1 Sodium 136 Potassium 4.0 Chloride 102 Carbon Dioxide 22 Anion Gap 16 BUN 28 H Creatinine 1.87 H Estim Creat Clear Calc 31.4 Estimated GFR 35 Random Glucose 190 H Lactic Acid Calcium 10.1 Total Bilirubin 1.3 H Direct Bilirubin AST 16 ALT < 6 Alkaline Phosphatase 54 Troponin I High Sens 4493.7 H* B-Natriuretic Peptide Total Protein 6.2 L Albumin 3.6 D Urine Color Urine Appearance Urine pH Ur Specific [place] Urine Protein Urine Glucose (UA) Urine Ketones Urine Blood Urine Nitrite Ur Leukocyte Esterase Urine RBC Urine WBC Ur Squamous Epith Cells Urine Bacteria COVID-19 (CRISTIAN) COVID-19 Clin Com ECG Interpretation: EKG with sinus rhythm at 79/Min; nonspecific interventricular conduction defect. Nonspecific ST-T changes in the inferior leads. Imaging Radiologist's impression: Impressions Abdomen/Pelvis CT 10/25/21 23:52 IMPRESSION: Prominent bladder wall thickening with adjacent inflammation, concerning for infectious process. Numerous bladder calculi. Left ureteral stent in place. Mild left hydroureteronephrosis noted. Enlarged left pelvic lymph nodes, similar to mildly increased in size when compared to prior. Cholelithiasis. Fleischner guidelines were followed. Chest X-Ray 10/26/21 00:45 IMPRESSION: Right internal jugular central venous catheter terminates near the cavoatrial junction. No pneumothorax. Assessment and Plan (1) NSTEMI (non-ST elevated myocardial infarction): Status: Acute (2) Septic shock: Status: Acute (3) Altered mental status: Status: Acute Plan Pertinent data reviewed. Hemoglobin is 7.9. BUN is 28. Creatinine is 1.87. High sensitivity troponins are 4724; 5532; 4493. He also had elevated troponins in August but not as high as this time. Bedside echocardiogram likely has wall motion abnormalities but not yet completed and he is also not very cooperative. Will review once completed. CT of abdomen/pelvis shows prominent bladder wall thickening with adjacent inflammation concerning for infectious process. Left ureteral stent in place. Mild left hydroureteronephrosis. Overall, suspect demand related non ST elevation myocardial infarction from urological infectious process. He is also on shock as the blood pressure is quite low and he is on pressors. Clinically, he has also has altered mental status. At this time, will need to be stabilized infection/blood pressure standpoint. Pressors as needed. Antibiotics empirically per business supervisor. From NSTEMI standpoint, IV heparin drip, aspirin, statins. Echocardiogram will be completed as above. Consider blood transfusion due to ongoing anemia as well as NSTEMI. Eventually, will need a diagnostic cardiac catheterization once the above medical issues are reasonably resolved and his mental status improves. Discussed with Dr. Moss. Procedures Date of Service Date of Service: 10/26/21
--- NOTE | 2021-10-26 11:56 | MHC.CM.PN ---
Addendum entered by Kindra Rouse 10/26/21 12:11: Per last admission Vax'd x3 Original Note: This journalists and other writers attempted to meet with patient for CM assessment- confused and unable to participate in CM assessment. Call placed to HCP/Girlfriend Shelby @ [phone] - [facility] Delivered - PCP Dr. Garcia - Patient lives with Shelby - Pt was d/c'd from [facility] on 10/11, snet home w/ [facility] - Pt mostly remained in bed @ home, sat up for meals, Shelby provide incontinence care - Meds are delivered, neighbors go grocery shopping for pt & GF - Open case with [facility], Spoke w/ Darshana @ [phone] ext [phone]- please call when there's d/c plan - Shelby open to STR referral @ d/c, sent to [facility]
--- NOTE | 2021-10-26 14:18 | PC.NURSE ---
Addendum entered by Cristo Cespedes RN 10/26/21 17:36: Md informed pt is having bloody urine w/ clots in hernandez. per md continue hep gtt Original Note: pt refused assessment, care and meds this AM d/t agitation and confusion. ECHO was completed at a later time while pt was compliant. pt was bathed this shift. Visitors at bedside. Wound noted on pt's penis with small amount of drainage. Picture taken with wound camera. PTT therapeutic this AM, no change. Will obtained PTT around 1500. Maintaining current rate. Fluids running as ordered. levo being titrated per protocol. hernandez care performed.
[2021-10-26 15:47] LABS: PTT Heparin Drip 50.9 SEC (53-77.9)
[2021-10-26] MEDS: Heparin Sodium,Porcine 5,000 UNIT/ML VIAL 2900 UNIT IVPUSH (16:02)
[2021-10-26] MEDS: cefTRIAXone sodium 1 GM in 0.9 % Sodium Chloride 50 ML IV (19:49)
[2021-10-26 22:12] LABS: PTT Heparin Drip 81.4 SEC (53-77.9)
[2021-10-27] VITALS (14 sets, daily range): BP systolic 96–134; BP diastolic 47–73; PULSE 95–113; RESP 15–29; TEMP 36.4–37.9; O2SAT 92–95; BMI 19.2
[2021-10-27] MEDS: Lactated Ringers 1,000 ML 100 ML IVCONT ×3 (00:37→19:41)
[2021-10-27] MEDS: Heparin Sodium,Porcine/1/2NS 25,000 UNIT/250 ML IV.SOLN 9.21 UNIT IVCONT (03:21)
[2021-10-27 04:38] LABS: MANUAL DIFF FLAG NO
[2021-10-27 04:40] LABS: Basophils Percent Auto 0.2 % (0-2); Eosinophils Percent Auto 0.2 % (0-4); Hematocrit 24.9 % (42.0-52.0); Hemoglobin 8.1 g/dl (14.0-18.0); Imm Gran Abs Auto 0.02 X10*3/uL (0.00-0.03); Imm Gran Pct Auto 0.4 % (0.0-0.4); Lymphocytes Absolute Auto 0.6 X10*3/uL (1.2-4.9); Lymphocytes Percent Auto 10.8 % (20-40); Mean Corpuscular HGB Conc 32.5 g/dl (31.0-36.0); Mean Corpuscular Hemoglobin 28.5 pg (27.0-33.0); Mean Corpuscular Volume 87.7 fL (80.0-98.0); Mean Platelet Volume 9.1 fL (9.4-12.4); Monocytes Absolute Auto 0.7 X10*3/uL (0.1-1.2); Monocytes Percent Auto 12.7 % (2-11); Neutrophils Percent Auto 75.7 % (45-73); Platelet Count 210 X10*3/uL (160-400); Red Blood Count 2.84 X10*6/uL (4.60-5.80); Red Cell Distribution Width 15.6 % (11.0-16.0); White Blood Count 5.3 X10*3/uL (4.8-10.8)
[2021-10-27 04:48] LABS: PTT Heparin Drip 48.3 SEC (53-77.9)
[2021-10-27] MEDS: Acetaminophen 325 MG TABLET 650 MG PO (04:53)
[2021-10-27] MEDS: Heparin Sodium,Porcine 5,000 UNIT/ML VIAL 2900 UNIT IVPUSH (05:16)
[2021-10-27 05:34] LABS: Alanine Aminotransferase 6 U/L (0-40); Albumin Level 3.2 g/dL (3.5-5.0); Alkaline Phosphatase 52 U/L (39-117); Anion Gap 14 (12-20); Aspartate Amino Transferase 17 U/L (5-37); Blood Urea Nitrogen 25 mg/dL (9-16); Carbon Dioxide 22 mmol/L (22-29); Chloride 110 mmol/L (96-108); Creatinine Clr Calc Pharmacy 33.9; Estimated Glomerular Filt Rate 43; Glucose Random 99 mg/dL (60-115); Potassium 3.5 mmol/L (3.3-5.1); Sodium 142 mmol/L (135-145); Total Protein 5.7 g/dL (6.5-8.0)
--- NOTE | 2021-10-27 05:44 | PC.NURSE ---
PttHD at 0430 came back low at 48.3 requiring 40u/kg bolus and increase drip by 2u/kg/h. Heparin drip has been running based off a weight of 65.77kg. Bolus in MAY based off a weight of 71.8 (2900units). Called overnight pharmacy for recommendation. Stated to check with MD. MD states to give bolus off of 65.77kg equalling 2600 units. Drip increased to 16u/kg/h. at 0530. Next PttHD at 1130.
--- NOTE | 2021-10-27 08:13 | P.PNCC_ITS ---
Subjective Subjective Date of Service: 10/27/21 Interval History: 81-year-old male presented with hypotension and delirium with evidence of a recurrent urinary tract infection having had 1 recently requiring ureteral stenting to relieve the hydronephrosis and has a chronic indwelling Barry which was changed on arrival to the emergency room and there he received a E fluid bolus and needed to be placed on Levophed apparently had again for the 2nd time in these 2 admissions a spike in the troponin previously at peak to 2000 this time it peaked at 5000 continues to resolve were down to 3000 now the pattern along with the progressive ST-T changes on his EKG indicate stuttering subendoc ardial infarcts in this apical distribution and there is a clear-cut significant wall motion abnormality in the apex probably due to partially to infarct partially to ischemic stunning affect and for this he is on a heparin drip which has contributed to some of his hematuria which thankfully is not overwhelming stable hemoglobin of 8.1 diminishing relative number of a neutrophil so I think the infectious issue currently on ceftriaxone is being treated adequately the previous organism was Proteus and a strep group G organism so the ceftriaxone seems to be working well clinically he is off the Levophed at this point and blood pressure is 96 systolic not far from his norm but part of that is the the infarct and the reduced ejection fraction which the no probably globally is in the 30+/- range and the CVP readings the no have come up from allow a low value and since being on Ringer's lactate as now come up to about 6-7 so he is euvolemic adequate blood pressure good urine output awaiting input from Urology who was called yesterday to see him in follow-up and after discussion with both and sister they say that he does not have dementia features but he had altered mental status both times he came in with gram-negative sepsis Critical Care Time (minutes): 35 Physical Exam Vital Signs: Vital Signs: Last Vital Signs Temp 99.1 F 10/27/21 08:00 Pulse 104 H 10/27/21 08:00 Resp 24 H 10/27/21 08:00 BP 96/59 L 10/27/21 08:00 Pulse Ox 95 10/27/21 08:00 O2 Del Method 10/27/21 08:00 BMI result Body Mass Index 19.2 awake and alert but but still somewhat confused but a lot of the agitation is gone so hopefully delirium is settling down CVP 6-7 but no neck vein distension adequate bilateral carotid upstroke s abdomen is soft no organomegaly chest is clear by chest x-ray and exam bedside echo to finds cardiac function with extensive apical akinesis no primary valve or pericardial disease Objective Data Labs CBC & Chem 7: 10/27/21 04:32 10/27/21 04:32 Labs: Laboratory Results - last 24 hr 10/26/21 10/26/21 10/26/21 09:20 15:28 21:56 WBC RBC Hgb Hct MCV MCH MCHC RDW Plt Count MPV Immature Gran % (Auto) Neut % (Auto) Lymph % (Auto) [place] % (Auto) Eos % (Auto) Baso % (Auto) Lymph # (Auto) [place] # (Auto) Eos # (Auto) Baso # (Auto) Abs Immat Gran (auto) Absolute Neuts (auto) Absolute Nucleated RBC Nucleated RBC % (auto) aPTT Heparin Protocol 63.1 50.9 L 81.4 H D Sodium Potassium Chloride Carbon Dioxide Anion Gap BUN Creatinine Estim Creat Clear Calc Estimated GFR Random Glucose Calcium Total Bilirubin AST ALT Alkaline Phosphatase Troponin I High Sens Total Protein Albumin 10/27/21 10/27/21 10/27/21 04:32 04:32 04:32 WBC 5.3 RBC 2.84 L Hgb 8.1 L Hct 24.9 L MCV 87.7 MCH 28.5 MCHC 32.5 RDW 15.6 Plt Count 210 MPV 9.1 L Immature Gran % (Auto) 0.4 Neut % (Auto) 75.7 H Lymph % (Auto) 10.8 L [place] % (Auto) 12.7 H Eos % (Auto) 0.2 Baso % (Auto) 0.2 Lymph # (Auto) 0.6 L [place] # (Auto) 0.7 Eos # (Auto) 0.0 Baso # (Auto) 0.0 Abs Immat Gran (auto) 0.02 Absolute Neuts (auto) 4.0 Absolute Nucleated RBC 0.000 Nucleated RBC % (auto) 0.0 aPTT Heparin Protocol 48.3 L D Sodium 142 Potassium 3.5 Chloride 110 H Carbon Dioxide 22 Anion Gap 14 BUN 25 H Creatinine 1.55 H Estim Creat Clear Calc 33.9 Estimated GFR 43 Random Glucose 99 D Calcium 10.0 Total Bilirubin 1.0 AST 17 ALT 6 Alkaline Phosphatase 52 Troponin I High Sens Total Protein 5.7 L Albumin 3.2 L 10/27/21 04:32 WBC RBC Hgb Hct MCV MCH MCHC RDW Plt Count MPV Immature Gran % (Auto) Neut % (Auto) Lymph % (Auto) [place] % (Auto) Eos % (Auto) Baso % (Auto) Lymph # (Auto) [place] # (Auto) Eos # (Auto) Baso # (Auto) Abs Immat Gran (auto) Absolute Neuts (auto) Absolute Nucleated RBC Nucleated RBC % (auto) aPTT Heparin Protocol Sodium Potassium Chloride Carbon Dioxide Anion Gap BUN Creatinine Estim Creat Clear Calc Estimated GFR Random Glucose Calcium Total Bilirubin AST ALT Alkaline Phosphatase Troponin I High Sens 3029.2 H* Total Protein Albumin Microbiology Microbiology Results: Microbiology 10/26/21 00:43 Blood - Venous Blood Culture - Preliminary No growth after 24 hours. 10/25/21 22:12 Blood - Venous Blood Culture - Preliminary No growth after 24 hours. Progress Note: A&P Assessment and plan (1) NSTEMI (non-ST elevated myocardial infarction): Status: Acute (2) Acute renal failure superimposed on stage 2 chronic kidney disease: Status: Acute (3) Altered mental status: Status: Acute (4) Acute subendocardial [place] of anterior wall: Status: Acute (5) Urinary tract infection: Status: Acute (6) Sepsis: Status: Acute (7) BPH w urinary obs/LUTS: Status: Acute (8) Urinary retention: Status: Acute (9) Septic shock: Status: Acute Plan will continue with the Ringer's lactate at 100 cc/hour at this point and I think he is okay to transfer to the floor being off of pressors and maintaining ceftriaxone daily until we get back the remaining microbiology and sensitivity and we are awaiting Urology ease input as to the next step and the family has voiced interest in cardiac catheterization when it when deemed to be stable from the acute infectious episode and hopefully by that time mental status will be resolved so we continue with the heparin and Cardiology follow-up and they they do recommend in addition that he be started on Lipitor and we need to consider antiplatelet therapy once we feel that we are perfectly stable from the hematuria standpoint Quality Stroke Does the patient have a stroke diagnosis?: No VTE Prior VTE?: No VTE Risk Level:: Medical - moderate - high VTE Device Contraindication: N/A - Device Ordered VTE Drug Contraindication: N/A - Med Ordered
[2021-10-27] MEDS: Aspirin 81 MG TAB.CHEW PO (08:18)
--- NOTE | 2021-10-27 10:32 | PM.PNCARD ---
Subjective Subjective Date of Service: 10/27/21 Interval history: Still seems confused. He thinks he is at [facility]. Denies any chest pains or any other cardiac complaints. Review of Systems Review of Systems Yes all other systems are reviewed and are negative Constitutional: Reports as per HPI Eyes: Reports as per HPI Reports as per HPI Cardiovascular: Reports as per HPI, Denies acrocyanosis, Denies cool extremities, Denies chest pain, Denies leg edema, Denies lightheadedness, Denies palpitations and Denies dyspnea Respiratory: Reports as per HPI, Reports no additional respiratory complaints and Denies dyspnea Gastrointestinal: Reports as per HPI and Reports no additional gastrointestinal complaints Genitourinary: Reports no additional male genitourinary complaints and Reports as per HPI Musculoskeletal: Reports no additional musculoskeletal complaints and Reports as per HPI Skin/Breast: Reports system reviewed and no additional complaints, except as docu Reports system reviewed and no additional complaints, except as documented, Reports as per HPI and Reports confusion Psychiatric: Reports no additional psychiatric complaints, Reports as per HPI and Reports confusion Endocrine: Reports no additional endocrine complaints, Reports as per HPI and Denies palpitations Hematologic/Lymphatic: Reports no additional hematologic/lymphatic complaints and Reports as per HPI Allergic/Immunologic: Reports no additional allergic/immunologic complaints and Reports as per HPI Physical Exam Vital Signs: Last Vital Signs Temp 99.1 F 10/27/21 08:00 Pulse 104 H 10/27/21 08:00 Resp 24 H 10/27/21 08:00 BP 96/59 L 10/27/21 08:00 Pulse Ox 95 10/27/21 08:00 O2 Del Method 10/27/21 08:00 BMI result Body Mass Index 19.2 Const General: cooperative, comfortable, no acute distress and confusion Orientation/consciousness: No patient oriented x3 and confusion HEENT Other: Unremarkable Head: Yes normal to inspection Neck Neck: Yes normal visual inspection Chest Chest palpation & inspection: normal inspection of the chest Resp Auscultation: clear to auscultation bilaterally Cardio Palpation: normal PMI Heart sounds: S1 normal heart sound present, S2 normal heart sound present, no gallops, no murmurs and no rubs GI Palpation (GI): Soft to palpation Back/Spine/Pelvis Other: unremarkable Skin General skin exam: no rashes or lesions noted Neuro General: No patient oriented x3, no focal motor deficits and confusion Extrem General: Yes normal to inspection Psych Mental Status: mental status grossly abnormal Objective Labs and Meds Result diagrams: 10/27/21 04:32 10/27/21 04:32 Lab results: Laboratory Results - last 24 hr 10/26/21 10/26/21 10/27/21 15:28 21:56 04:32 WBC RBC Hgb Hct MCV MCH MCHC RDW Plt Count MPV Immature Gran % (Auto) Neut % (Auto) Lymph % (Auto) [place] % (Auto) Eos % (Auto) Baso % (Auto) Lymph # (Auto) [place] # (Auto) Eos # (Auto) Baso # (Auto) Abs Immat Gran (auto) Absolute Neuts (auto) Absolute Nucleated RBC Nucleated RBC % (auto) aPTT Heparin Protocol 50.9 L 81.4 H D 48.3 L D Sodium Potassium Chloride Carbon Dioxide Anion Gap BUN Creatinine Estim Creat Clear Calc Estimated GFR Random Glucose Calcium Total Bilirubin AST ALT Alkaline Phosphatase Troponin I High Sens Total Protein Albumin 10/27/21 10/27/21 10/27/21 04:32 04:32 04:32 WBC 5.3 RBC 2.84 L Hgb 8.1 L Hct 24.9 L MCV 87.7 MCH 28.5 MCHC 32.5 RDW 15.6 Plt Count 210 MPV 9.1 L Immature Gran % (Auto) 0.4 Neut % (Auto) 75.7 H Lymph % (Auto) 10.8 L [place] % (Auto) 12.7 H Eos % (Auto) 0.2 Baso % (Auto) 0.2 Lymph # (Auto) 0.6 L [place] # (Auto) 0.7 Eos # (Auto) 0.0 Baso # (Auto) 0.0 Abs Immat Gran (auto) 0.02 Absolute Neuts (auto) 4.0 Absolute Nucleated RBC 0.000 Nucleated RBC % (auto) 0.0 aPTT Heparin Protocol Sodium 142 Potassium 3.5 Chloride 110 H Carbon Dioxide 22 Anion Gap 14 BUN 25 H Creatinine 1.55 H Estim Creat Clear Calc 33.9 Estimated GFR 43 Random Glucose 99 D Calcium 10.0 Total Bilirubin 1.0 AST 17 ALT 6 Alkaline Phosphatase 52 Troponin I High Sens 3029.2 H* Total Protein 5.7 L Albumin 3.2 L Progress Note: A&P Assessment and plan (1) NSTEMI (non-ST elevated myocardial infarction): Status: Acute (2) Septic shock: Status: Acute (3) Altered mental status: Status: Acute Plan Overall, NSTEMI in the setting of acute UTI/sepsis/shock. He also has altered mental status in this process. Continue IV heparin. Aspirin, high-dose statins. Echocardiogram with wall motion abnormalities suggestive of either coronary disease or stress-induced cardiomyopathy. Ideally, needs a diagnostic cardiac catheterization once mental status improves and infection issues are controlled. Will closely follow. Discussed with Dr. Perea. Time Spent With Patient Time: Total time spent is greater than 50% in coordination of care (as documented) at patient's floor/unit and/or counseling patient: 35min. Progress Note: Quality Stroke Does the patient have a stroke diagnosis?: No Procedures Date of Service Date of Service: 10/27/21
[2021-10-27 11:48] LABS: PTT Heparin Drip 58.9 SEC (53-77.9)
--- NOTE | 2021-10-27 13:58 | P.CDIC_ITS ---
CDI Concurrent Query Documentation Clarification: PHYSICIAN'S DOCUMENTATION REQUEST Date of Query: 10/27/21 6220 Patient Name: Festus Valenzuela Admit Date: 10/26/21 Dear Doctor, A review of the medical record indicates additional documentation may be needed. Please review below and update the documentation accordingly. Clinical Indicators: Documentation on progress note dated 10/26/21 included the diagnosis of sepsis. The patient's infectious clinical indicators include: Risk Factors/Clinical Indicators/Treatments Per H&P 10/26/21: Systemic inflammatory response syndrome (no evidence of sepsis at this point despite of the hypotension is not febrile, no white count, no leukopenia, lactic acid is normal) Per MD progress note 10/26/21: Assessment and plan: Sepsis. On IV Ceftriaxone Recognized standard criteria for this condition and other infectious definitions includes: Sepsis Systemic manifestations of infection, with 2 or more SIRS criteria which include: * Fever > 100.4?F or hypothermia < 96.8?F * Leukocytosis ? WBC > 12,000 or leukopenia, WBC < 4,000, or > 10% bands * Tachycardia- > 90 beats/minute * Tachypnea- RR > 20 breaths/minute or PaCO2 < 32mmHg Source: [employer] Manual 2013 Documentation should include the known or suspected organism, and the underlying infection, such as UTI or pneumonia Based on the above information and the recognized standard for sepsis, could you please clarify in the Progress Notes if this diagnoses is still accurate and reflective of the patient's condition to ensure quality of the medical record. * Sepsis is/was present on admission and is a clinical diagnosis based on (please include this additional support in the medical record) * After study (the condition) has been ruled out * Other (please specify) * Unable to determine Use of terms such as suspected, likely, concern for, or probable (associated with a specific diagnosis that is being evaluated, monitored, or treated as if it exists) are acceptable and can be coded in the inpatient setting, when documented at the time of discharge. Thank you, Cherelle Pruitt RN Extension: [phone] Please use your independent medical judgment in providing your response. THIS QUERY IS PART OF THE PERMANENT MEDICAL RECORD
--- NOTE | 2021-10-27 14:09 | P.CDIC_ITS ---
CDI Concurrent Query Documentation Clarification: PHYSICIAN'S DOCUMENTATION REQUEST Date of Query: 10/27/21 1410 Patient Name: Festus Valenzuela Admit Date: 10/26/21 Dear Doctor, A review of the medical record indicates additional documentation may be needed. Please review below and update the documentation accordingly. Clinical Indicators: Documentation includes the conditions of UTI and Barry catheter. Additional clinical indicators in the record include: Risk Factors/Clinical Indicators/Treatments FC with no output, urine leaking from penis Per H&P: UTI on IV antibiotics, ceftriaxone Please clarify the relationship between these conditions: * Yes, UTI is related to / associated with / due to Barry catheter * No, UTI is not related to / associated with / due to Barry catheter * Unable to determine Use of terms such as suspected, likely, concern for, or probable (associated with a specific diagnosis that is being evaluated, monitored, or treated as if it exists) are acceptable and can be coded in the inpatient setting, when documented at the time of discharge. Thank you, Cherelle Pruitt RN Extension: [phone] Please use your independent medical judgment in providing your response. THIS QUERY IS PART OF THE PERMANENT MEDICAL RECORD
--- NOTE | 2021-10-27 15:15 | P.PNCC_ITS ---
Subjective Subjective Date of Service: 10/27/21 Critical Care Time (minutes): 45 Physical Exam Vital Signs: Vital Signs: Last Vital Signs Temp 98.7 F 10/27/21 12:00 Pulse 96 10/27/21 12:00 Resp 15 10/27/21 12:00 BP 106/59 L 10/27/21 12:00 Pulse Ox 95 10/27/21 12:00 O2 Del Method 10/27/21 12:00 BMI result Body Mass Index 19.2 Objective Data Labs CBC & Chem 7: 10/27/21 04:32 10/27/21 04:32 Labs: Laboratory Results - last 24 hr 10/26/21 10/26/21 10/27/21 15:28 21:56 04:32 WBC RBC Hgb Hct MCV MCH MCHC RDW Plt Count MPV Immature Gran % (Auto) Neut % (Auto) Lymph % (Auto) [place] % (Auto) Eos % (Auto) Baso % (Auto) Lymph # (Auto) [place] # (Auto) Eos # (Auto) Baso # (Auto) Abs Immat Gran (auto) Absolute Neuts (auto) Absolute Nucleated RBC Nucleated RBC % (auto) aPTT Heparin Protocol 50.9 L 81.4 H D 48.3 L D Sodium Potassium Chloride Carbon Dioxide Anion Gap BUN Creatinine Estim Creat Clear Calc Estimated GFR Random Glucose Calcium Total Bilirubin AST ALT Alkaline Phosphatase Troponin I High Sens Total Protein Albumin 10/27/21 10/27/21 10/27/21 04:32 04:32 04:32 WBC 5.3 RBC 2.84 L Hgb 8.1 L Hct 24.9 L MCV 87.7 MCH 28.5 MCHC 32.5 RDW 15.6 Plt Count 210 MPV 9.1 L Immature Gran % (Auto) 0.4 Neut % (Auto) 75.7 H Lymph % (Auto) 10.8 L [place] % (Auto) 12.7 H Eos % (Auto) 0.2 Baso % (Auto) 0.2 Lymph # (Auto) 0.6 L [place] # (Auto) 0.7 Eos # (Auto) 0.0 Baso # (Auto) 0.0 Abs Immat Gran (auto) 0.02 Absolute Neuts (auto) 4.0 Absolute Nucleated RBC 0.000 Nucleated RBC % (auto) 0.0 aPTT Heparin Protocol Sodium 142 Potassium 3.5 Chloride 110 H Carbon Dioxide 22 Anion Gap 14 BUN 25 H Creatinine 1.55 H Estim Creat Clear Calc 33.9 Estimated GFR 43 Random Glucose 99 D Calcium 10.0 Total Bilirubin 1.0 AST 17 ALT 6 Alkaline Phosphatase 52 Troponin I High Sens 3029.2 H* Total Protein 5.7 L Albumin 3.2 L 10/27/21 11:26 WBC RBC Hgb Hct MCV MCH MCHC RDW Plt Count MPV Immature Gran % (Auto) Neut % (Auto) Lymph % (Auto) [place] % (Auto) Eos % (Auto) Baso % (Auto) Lymph # (Auto) [place] # (Auto) Eos # (Auto) Baso # (Auto) Abs Immat Gran (auto) Absolute Neuts (auto) Absolute Nucleated RBC Nucleated RBC % (auto) aPTT Heparin Protocol 58.9 D Sodium Potassium Chloride Carbon Dioxide Anion Gap BUN Creatinine Estim Creat Clear Calc Estimated GFR Random Glucose Calcium Total Bilirubin AST ALT Alkaline Phosphatase Troponin I High Sens Total Protein Albumin Microbiology Microbiology Results: Microbiology 10/26/21 01:50 Urine Catheterized - Barry Catheter Urine Culture - Preliminary Enterococcus/Streptococcus sp 10/26/21 00:43 Blood - Venous Blood Culture - Preliminary No growth after 24 hours. 10/25/21 22:12 Blood - Venous Blood Culture - Preliminary No growth after 24 hours. Quality Stroke Does the patient have a stroke diagnosis?: No VTE Prior VTE?: No VTE Risk Level:: Medical - moderate - high VTE Device Contraindication: N/A - Device Ordered VTE Drug Contraindication: N/A - Med Ordered
[2021-10-27] MEDS: Piperacillin Sodium/Tazobactam 3.375 GM in 0.9 % Sodium Chloride 50 ML IV (17:08)
[2021-10-27 17:58] LABS: PTT Heparin Drip 54.3 SEC (53-77.9)
[2021-10-28] MEDS: Piperacillin Sodium/Tazobactam 3.375 GM in 0.9 % Sodium Chloride 50 ML IV ×2 (01:58→09:43)
[2021-10-28] MEDS: Lactated Ringers 1,000 ML 100 ML IVCONT (01:59)
[2021-10-28] MEDS: Heparin Sodium,Porcine/1/2NS 25,000 UNIT/250 ML IV.SOLN 10.52 UNIT IVCONT (02:39)
[2021-10-28 03:21] VITALS: BP 140/68; PULSE 95; RESP 18; TEMP 36.4; O2SAT 95
[2021-10-28 06:10] LABS: Hematocrit 26.7 % (42.0-52.0); Hemoglobin 8.8 g/dl (14.0-18.0); Mean Corpuscular Volume 88.1 fL (80.0-98.0); Mean Platelet Volume 9.1 fL (9.4-12.4); Platelet Count 228 X10*3/uL (160-400); Red Blood Count 3.03 X10*6/uL (4.60-5.80); Red Cell Distribution Width 15.7 % (11.0-16.0); White Blood Count 4.8 X10*3/uL (4.8-10.8)
[2021-10-28 06:17] LABS: PTT Heparin Drip 49.6 SEC (53-77.9)
[2021-10-28 06:47] LABS: Anion Gap 16 (12-20); Blood Urea Nitrogen 23 mg/dL (9-16); Calcium 9.8 mg/dL (8.4-10.2); Carbon Dioxide 20 mmol/L (22-29); Chloride 110 mmol/L (96-108); Creatinine Clr Calc Pharmacy 35.6; Estimated Glomerular Filt Rate 46; Glucose Random 107 mg/dL (60-115); Potassium 3.5 mmol/L (3.3-5.1); Sodium 142 mmol/L (135-145)
[2021-10-28] MEDS: Aspirin 81 MG TAB.CHEW PO (07:43)
[2021-10-28] MEDS: Heparin Sodium,Porcine 5,000 UNIT/ML VIAL 2900 UNIT IVPUSH (07:43)
[2021-10-28 07:58] VITALS: BP 133/81; PULSE 115; RESP 14; TEMP 36.8; O2SAT 92
[2021-10-28] MEDS: Omeprazole 20 MG CAPSULE.DR PO (09:43)
--- NOTE | 2021-10-28 10:05 | PM.PNCARD ---
Subjective Subjective Date of Service: 10/28/21 Interval history: He is denying any cardiac symptoms. Mental status still not normal. Review of Systems Review of Systems Yes all other systems are reviewed and are negative Constitutional: Reports as per HPI Eyes: Reports as per HPI Reports as per HPI Cardiovascular: Reports as per HPI, Denies acrocyanosis, Denies cool extremities, Denies chest pain, Denies leg edema, Denies lightheadedness, Denies palpitations and Denies dyspnea Respiratory: Reports as per HPI, Reports no additional respiratory complaints and Denies dyspnea Gastrointestinal: Reports as per HPI and Reports no additional gastrointestinal complaints Genitourinary: Reports no additional male genitourinary complaints and Reports as per HPI Musculoskeletal: Reports no additional musculoskeletal complaints and Reports as per HPI Skin/Breast: Reports system reviewed and no additional complaints, except as docu Reports system reviewed and no additional complaints, except as documented, Reports as per HPI and Reports confusion Psychiatric: Reports no additional psychiatric complaints, Reports as per HPI and Reports confusion Endocrine: Reports no additional endocrine complaints, Reports as per HPI and Denies palpitations Hematologic/Lymphatic: Reports no additional hematologic/lymphatic complaints and Reports as per HPI Allergic/Immunologic: Reports no additional allergic/immunologic complaints and Reports as per HPI Physical Exam Vital Signs: Last Vital Signs Temp 98.2 F 10/28/21 07:58 Pulse 115 H 10/28/21 07:58 Resp 14 10/28/21 07:58 BP 133/81 10/28/21 07:58 Pulse Ox 92 10/28/21 07:58 O2 Del Method 10/28/21 07:58 BMI result Body Mass Index 19.2 Const General: cooperative, comfortable, no acute distress, confusion and ill appearing Orientation/consciousness: No patient oriented x3 and confusion HEENT Other: Unremarkable Head: Yes normal to inspection Neck Neck: Yes normal visual inspection Chest Chest palpation & inspection: normal inspection of the chest Resp Auscultation: clear to auscultation bilaterally Cardio Palpation: normal PMI Heart sounds: S1 normal heart sound present, S2 normal heart sound present, no gallops, no murmurs and no rubs GI Palpation (GI): Soft to palpation Back/Spine/Pelvis Other: unremarkable Skin General skin exam: no rashes or lesions noted Neuro General: No patient oriented x3, no focal motor deficits and confusion Extrem General: Yes normal to inspection Psych Mental Status: mental status grossly abnormal Objective Labs and Meds Result diagrams: 10/28/21 05:59 10/28/21 05:59 Lab results: Laboratory Results - last 24 hr 10/27/21 10/27/21 10/28/21 11:26 17:42 05:59 WBC 4.8 RBC 3.03 L Hgb 8.8 L Hct 26.7 L MCV 88.1 MCH 29.0 MCHC 33.0 RDW 15.7 Plt Count 228 MPV 9.1 L Absolute Nucleated RBC 0.000 Nucleated RBC % (auto) 0.0 aPTT Heparin Protocol 58.9 D 54.3 Sodium Potassium Chloride Carbon Dioxide Anion Gap BUN Creatinine Estim Creat Clear Calc Estimated GFR Random Glucose Calcium 10/28/21 10/28/21 05:59 05:59 WBC RBC Hgb Hct MCV MCH MCHC RDW Plt Count MPV Absolute Nucleated RBC Nucleated RBC % (auto) aPTT Heparin Protocol 49.6 L Sodium 142 Potassium 3.5 Chloride 110 H Carbon Dioxide 20 L Anion Gap 16 BUN 23 H Creatinine 1.48 H Estim Creat Clear Calc 35.6 Estimated GFR 46 Random Glucose 107 Calcium 9.8 Progress Note: A&P Assessment and plan (1) NSTEMI (non-ST elevated myocardial infarction): Status: Acute (2) Septic shock: Status: Acute (3) Altered mental status: Status: Acute Plan He continues to be on antibiotics for suspected urosepsis. From the cardiac standpoint, he did have a non ST elevation myocardial infarction but no clear cardiac symptoms. Unfortunately, continues to be confused. Somewhat better than yesterday but still he does not know what is happening. Continue with IV heparin, aspirin, beta-blockers, statins. Echocardiogram suggestive of underlying CAD or stress-induced cardiomyopathy. Ideally, diagnostic cardiac catheterization once more stable. Discussed with Dr. Perea. Time Spent With Patient Time: Total time spent is greater than 50% in coordination of care (as documented) at patient's floor/unit and/or counseling patient: 35min Progress Note: Quality Stroke Does the patient have a stroke diagnosis?: No Procedures Date of Service Date of Service: 10/28/21
--- NOTE | 2021-10-28 10:48 | HO.PM.IMPN ---
Subjective Subjective Date of Service: 10/28/21 Interval History: Seen and evaluated this morning More alert and interactive but still confused Denies any pain but reports feeling weak overall Not eating much per nursing staff No reported overnight events Review of Systems No fever, chills but reports generalized weakness No chest pain, palpitation No shortness of breath or coughing No abdominal pain, nausea or vomiting No urinary symptoms No any rash or wounds Physical Exam Vital Signs: Vital Signs: Last Vital Signs Temp 98.2 F 10/28/21 07:58 Pulse 115 H 10/28/21 07:58 Resp 14 10/28/21 07:58 BP 133/81 10/28/21 07:58 Pulse Ox 92 10/28/21 07:58 O2 Del Method 10/28/21 07:58 BMI result Body Mass Index 19.2 Const: Other: Constitutional : Alert, interactive but slow, not in distress Neck : Normal inspection, Supple Cardiovascular : RRR, no JVP, no lower extremity edema Respiratory : fair bilateral air entry, no crackles, wheezes or rhonchi Gastrointestinal: soft, lax, Normal bowel sounds, Non tender Skin : Warm, Dry, nasal lesion Neurological : Alert & oriented to time and place but still mildly confused, No focal deficit Objective Data Active Medications Aspirin (Aspirin 81 Mg Tab.Chew) 81 mg PO DAILY [facility] Last Admin: 10/28/21 07:43 Dose: 81 mg Documented By: CARMELA Atorvastatin Calcium (Atorvastatin Calcium 80 Mg Tablet) 80 mg PO BEDTIME [facility] Doxazosin Mesylate (Doxazosin Mesylate 2 Mg Tablet) 4 mg PO BEDTIME [facility] Finasteride (Finasteride 5 Mg Tablet) 5 mg PO DAILY [facility] Heparin Sodium (Porcine) (Heparin Sodium,Porcine 5,000 Unit/Ml Vial) 2,900 unit 40 unit/kg (2900 unit) IVPUSH PROTOCOL BOLUS PRN; Protocol PRN Reason: 40 unit/kg - Heparin Protocol Last Admin: 10/28/21 07:43 Dose: 2,900 unit Documented By: CARMELA Heparin Sodium (Porcine) (Heparin Sodium,Porcine 5,000 Unit/Ml Vial) 5,700 unit 80 unit/kg (5700 unit) IVPUSH PROTOCOL BOLUS PRN; Protocol PRN Reason: 80 unit/kg - Heparin Protocol Heparin Sodium/Sodium Chloride () 25,000 unit in 250 mls @ 0 mls/hr IVCONT .Q0M [facility]; Protocol Last Titration: 10/28/21 07:44 Dose: 18 units/kg/hr, 11.84 mls/hr Documented By: CARMELA Co-signed By: AFRICA Ceftriaxone Sodium 1 gm/ (Sodium Chloride) 50 mls @ 100 mls/hr IV Q24H [facility] Metoprolol Tartrate (Metoprolol Tartrate 12.5 Mg Halftab) 12.5 mg PO BID [facility]; Protocol Omeprazole (Omeprazole 20 Mg Capsule.Dr) 20 mg PO DAILY@0630 [facility] Last Admin: 10/28/21 09:43 Dose: 20 mg Documented By: CARMELA Pharmacy Consult (Consult Rx Perform Med Rec) 1 each MISCELLANE ONCE PRN PRN Reason: Consult order Labs CBC & Chem 7: 10/28/21 05:59 10/28/21 05:59 Labs: Laboratory Results - last 24 hr 10/27/21 10/27/21 10/28/21 11:26 17:42 05:59 MCV 88.1 MCH 29.0 MCHC 33.0 RDW 15.7 Plt Count 228 MPV 9.1 L Absolute Nucleated RBC 0.000 Nucleated RBC % (auto) 0.0 aPTT Heparin Protocol 58.9 D 54.3 Anion Gap Estim Creat Clear Calc Estimated GFR Random Glucose Calcium 10/28/21 10/28/21 05:59 05:59 MCV MCH MCHC RDW Plt Count MPV Absolute Nucleated RBC Nucleated RBC % (auto) aPTT Heparin Protocol 49.6 L Anion Gap 16 Estim Creat Clear Calc 35.6 Estimated GFR 46 Random Glucose 107 Calcium 9.8 Microbiology Microbiology Results: Microbiology 10/26/21 01:50 Urine Culture - Preliminary Urine Catheterized - Barry Catheter Enterococcus faecalis 10/26/21 00:43 Blood Culture - Preliminary Blood - Venous No growth after 48 hours. 10/25/21 22:12 Blood Culture - Preliminary Blood - Venous No growth after 48 hours. Assessment and Plan (1) NSTEMI (non-ST elevated myocardial infarction): Status: Acute (2) Acute renal failure superimposed on stage 2 chronic kidney disease: Status: Acute (3) Altered mental status: Status: Acute (4) Urinary tract infection: Status: Acute (5) Septic shock: Status: Acute Plan ?81-year-old gentleman with past medical history of hypertension hyperlipidemia? NSTEMI Troponin trended down Echocardiogram suggestive of underlying CAD or stress-induced cardiomyopathy. Cardiology recommended to continue heparin drip until being discharged continue aspirin, statin and beta-joey Plan to transferred to [facility] by tomorrow for cardiac angiogram Septic shock secondary to urosepsis Required ICU admission and pressors Improving Urine culture growing Enterococcus faecalis Continue ceftriaxone pending final culture Hematuria Likely from placement of Barry catheter Continue to monitor, patient on heparin for NSTEMI for now Monitor H and H Pending urology consult Billy I on CKD stage 2 Improving back to baseline Monitor intake and output Follow BMP Acute toxic-metabolic encephalopathy ?fluctuating< improving ?likely due to acute infection, hypoactive delirium no prior history of underlying dementia has not seen a physician in several years ?treat infection follow clinical course ?recurrent orientation, increase physical activity DVT PPX Heparin The patient will need overnight hospital stay to continue treatment of NSTEMI, urosepsis pending safe discharge plan to prevent possible decompensation into septic shock. Quality Stroke Does the patient have a stroke diagnosis?: No VTE Prior VTE?: No VTE Risk Level:: Medical - moderate - high VTE Device Contraindication: N/A - Device Ordered VTE Drug Contraindication: N/A - Med Ordered
[2021-10-28 11:42] VITALS: BP 128/60; PULSE 100; RESP 16; TEMP 36.9; O2SAT 96
[2021-10-28 14:01] LABS: PTT Heparin Drip 81.4 SEC (53-77.9)
[2021-10-28] MEDS: cefTRIAXone sodium 1 GM in 0.9 % Sodium Chloride 50 ML IV (15:30)
[2021-10-28 16:00] VITALS: BP 149/67; PULSE 98; RESP 18; TEMP 36.8; O2SAT 98
[2021-10-28] MEDS: Doxazosin Mesylate 2 MG TABLET 4 MG PO (19:24)
[2021-10-28] MEDS: Metoprolol Tartrate 12.5 MG HALFTAB PO (19:25)
[2021-10-28] MEDS: Atorvastatin Calcium 80 MG TABLET PO (19:25)
[2021-10-28 19:37] VITALS: BP 125/72; PULSE 98; RESP 18; TEMP 36.9; O2SAT 97
[2021-10-28 20:28] LABS: PTT Heparin Drip 53.5 SEC (53-77.9)
[2021-10-28 23:13] VITALS: BP 110/61; PULSE 100; RESP 18; TEMP 36.6; O2SAT 97
[2021-10-29 02:16] LABS: PTT Heparin Drip 52.3 SEC (53-77.9)
[2021-10-29] MEDS: Heparin Sodium,Porcine/1/2NS 25,000 UNIT/250 ML IV.SOLN 11.84 UNIT IVCONT (03:12)
[2021-10-29 03:13] VITALS: BP 116/65; PULSE 96; RESP 18; TEMP 36.2; O2SAT 95
[2021-10-29] MEDS: Heparin Sodium,Porcine 5,000 UNIT/ML VIAL 2900 UNIT IVPUSH ×2 (03:14→15:19)
[2021-10-29] MEDS: Omeprazole 20 MG CAPSULE.DR PO (06:18)
[2021-10-29 07:36] VITALS: BP 125/72; PULSE 101; RESP 18; TEMP 36.2; O2SAT 95
[2021-10-29 08:22] LABS: Hematocrit 27.5 % (42.0-52.0); Hemoglobin 8.8 g/dl (14.0-18.0); Mean Corpuscular Hemoglobin 28.5 pg (27.0-33.0); Mean Platelet Volume 9.4 fL (9.4-12.4); Platelet Count 234 X10*3/uL (160-400); Red Blood Count 3.09 X10*6/uL (4.60-5.80); Red Cell Distribution Width 15.8 % (11.0-16.0); White Blood Count 3.6 X10*3/uL (4.8-10.8)
[2021-10-29 08:33] LABS: PTT Heparin Drip 102.8 SEC (53-77.9)
[2021-10-29 09:03] LABS: Anion Gap 12 (12-20); Blood Urea Nitrogen 24 mg/dL (9-16); Calcium 9.4 mg/dL (8.4-10.2); Carbon Dioxide 24 mmol/L (22-29); Chloride 111 mmol/L (96-108); Estimated Glomerular Filt Rate 46; Glucose Random 112 mg/dL (60-115); Potassium 3.3 mmol/L (3.3-5.1); Sodium 144 mmol/L (135-145)
[2021-10-29] MEDS: Finasteride 5 MG TABLET PO (09:41)
[2021-10-29] MEDS: Metoprolol Tartrate 12.5 MG HALFTAB PO ×2 (09:42→20:05)
[2021-10-29] MEDS: Aspirin 81 MG TAB.CHEW PO (09:42)
--- NOTE | 2021-10-29 11:34 | P.PNIM_ITS ---
Subjective Subjective Date of Service: 10/29/21 Interval History: Seen and evaluated this morning alert and interactive but still confused Denies any pain reports feeling weak overall Not eating much per nursing staff No reported overnight events Review of Systems No fever, chills but reports generalized weakness No chest pain, palpitation No shortness of breath or coughing No abdominal pain, nausea or vomiting No urinary symptoms No any rash or wounds Physical Exam Vital Signs: Vital Signs: Last Vital Signs Temp 97.2 F 10/29/21 07:36 Pulse 101 H 10/29/21 07:36 Resp 18 10/29/21 07:36 BP 125/72 10/29/21 07:36 Pulse Ox 95 10/29/21 07:36 O2 Del Method 10/29/21 07:36 BMI result Body Mass Index 19.2 Const: Other: Constitutional : Alert, interactive but slow, not in distress Neck : Normal inspection, Supple Cardiovascular : RRR, no JVP, no lower extremity edema Respiratory : fair bilateral air entry, no crackles, wheezes or rhonchi Gastrointestinal: soft, lax, Normal bowel sounds, Non tender Skin : Warm, Dry, nasal lesion Neurological : Alert & disoriented and still mildly confused, No focal deficit Objective Data Active Medications Aspirin (Aspirin 81 Mg Tab.Chew) 81 mg PO DAILY [facility] Last Admin: 10/29/21 09:42 Dose: 81 mg Documented By: MANDEEP Atorvastatin Calcium (Atorvastatin Calcium 80 Mg Tablet) 80 mg PO BEDTIME [facility] Last Admin: 10/28/21 19:25 Dose: 80 mg Documented By: ELIS Doxazosin Mesylate (Doxazosin Mesylate 2 Mg Tablet) 4 mg PO BEDTIME [facility] Last Admin: 10/28/21 19:24 Dose: 4 mg Documented By: ELIS Finasteride (Finasteride 5 Mg Tablet) 5 mg PO DAILY [facility] Last Admin: 10/29/21 09:41 Dose: 5 mg Documented By: MANDEEP Heparin Sodium (Porcine) (Heparin Sodium,Porcine 5,000 Unit/Ml Vial) 2,900 unit 40 unit/kg (2900 unit) IVPUSH PROTOCOL BOLUS PRN; Protocol PRN Reason: 40 unit/kg - Heparin Protocol Last Admin: 10/29/21 03:14 Dose: 2,900 unit Documented By: ELIS Heparin Sodium (Porcine) (Heparin Sodium,Porcine 5,000 Unit/Ml Vial) 5,700 unit 80 unit/kg (5700 unit) IVPUSH PROTOCOL BOLUS PRN; Protocol PRN Reason: 80 unit/kg - Heparin Protocol Heparin Sodium/Sodium Chloride () 25,000 unit in 250 mls @ 0 mls/hr IVCONT .Q0M [facility]; Protocol Last Titration: 10/29/21 09:35 Dose: 15 units/kg/hr, 9.87 mls/hr Documented By: MANDEEP Co-signed By: JAYCEE Ceftriaxone Sodium 1 gm/ (Sodium Chloride) 50 mls @ 100 mls/hr IV Q24H [facility] Last Infusion: 10/28/21 16:42 Dose: 0 mls/hr Documented By: CARMELA Metoprolol Tartrate (Metoprolol Tartrate 12.5 Mg Halftab) 12.5 mg PO BID [facility]; Protocol Last Admin: 10/29/21 09:42 Dose: 12.5 mg Documented By: MANDEEP Omeprazole (Omeprazole 20 Mg Capsule.Dr) 20 mg PO DAILY@0630 [facility] Last Admin: 10/29/21 06:18 Dose: 20 mg Documented By: ELIS Pharmacy Consult (Consult Rx Perform Med Rec) 1 each MISCELLANE ONCE PRN PRN Reason: Consult order Labs CBC & Chem 7: 10/29/21 07:50 10/29/21 07:50 Labs: Laboratory Results - last 24 hr 10/28/21 10/28/21 10/29/21 13:39 20:11 02:00 MCV MCH MCHC RDW Plt Count MPV Absolute Nucleated RBC Nucleated RBC % (auto) aPTT Heparin Protocol 81.4 H D 53.5 D 52.3 L Anion Gap Estim Creat Clear Calc Estimated GFR Random Glucose Calcium 10/29/21 10/29/21 10/29/21 07:50 07:50 07:50 MCV 89.0 MCH 28.5 MCHC 32.0 RDW 15.8 Plt Count 234 MPV 9.4 Absolute Nucleated RBC 0.000 Nucleated RBC % (auto) 0.0 aPTT Heparin Protocol 102.8 H D Anion Gap 12 Estim Creat Clear Calc 36.0 Estimated GFR 46 Random Glucose 112 Calcium 9.4 Microbiology Microbiology Results: Microbiology 10/26/21 01:50 Urine Culture - Preliminary Urine Catheterized - Barry Catheter Enterococcus faecalis Staphylococcus species Assessment and Plan (1) NSTEMI (non-ST elevated myocardial infarction): Status: Acute (2) Acute renal failure superimposed on stage 2 chronic kidney disease: Status: Acute (3) Urinary tract infection: Status: Acute Plan ?81-year-old gentleman with past medical history of hypertension hyperlipidemia? NSTEMI Troponin trended down Echocardiogram suggestive of underlying CAD or stress-induced cardiomyopathy. Cardiology recommended to discontinue heparin drip continue aspirin, statin and beta-joey cardiology to follow tomorrow and decide about transfer to [facility] for cardiac angiogram Septic shock secondary to urosepsis Required ICU admission and pressors improved Urine culture growing Enterococcus faecalis and Staph species, pending final sensitivity change antibiotic to ampicillin pending final culture Hematuria Likely from placement of Barry catheter Continue to monitor Monitor H and H Pending urology consult Billy I on CKD stage 2 Improving back to baseline Monitor intake and output Follow BMP Acute toxic-metabolic encephalopathy ?fluctuating< improving ?likely due to acute infection, hypoactive delirium no prior history of underlying dementia has not seen a physician in several years ?treat infection follow clinical course ?recurrent orientation, increase physical activity DVT PPX Heparin The patient will need overnight hospital stay to continue treatment of encephalopathy, urosepsis pending safe discharge plan to prevent possible decompensation into septic shock. Quality Stroke Does the patient have a stroke diagnosis?: No VTE Prior VTE?: No VTE Risk Level:: Medical - moderate - high VTE Device Contraindication: N/A - Device Ordered VTE Drug Contraindication: N/A - Med Ordered
[2021-10-29 11:49] VITALS: BP 96/59; PULSE 80; RESP 18; TEMP 36.2; O2SAT 97
[2021-10-29 15:34] VITALS: BP 102/57; PULSE 100; RESP 18; TEMP 36.6; O2SAT 93
--- NOTE | 2021-10-29 16:49 | PM.UROPN ---
Subjective Subjective Date of Service: 10/29/21 Interval history: admit with infection Barry catheter had been removed Incomplete bladder emptying Imaging shows stones within bladder Is slowly improving with Barry catheter in place Will need operative removal of stones within bladder This will be organized Physical Exam Vital Signs: Vital Signs: Last Vital Signs Temp 97.8 F 10/29/21 15:34 Pulse 100 10/29/21 15:34 Resp 18 10/29/21 15:34 BP 102/57 L 10/29/21 15:34 Pulse Ox 93 10/29/21 15:34 O2 Del Method 10/29/21 11:49 BMI result Body Mass Index 19.2 Const: General: cooperative, healthy appearing, comfortable and no acute distress Orientation/consciousness: patient oriented x3 HEENT: Face and sinus: Yes normal facial exam Mouth: moist mucous membranes Neck: Neck: Yes normal visual inspection, Yes full ROM and Yes trachea midline Chest: Chest palpation & inspection: normal inspection of the chest Resp: Effort & Inspection: normal respiratory effort, able to speak in complete sentences and no respiratory distress GI: Inspection: Yes normal to inspection Back/Spine/Pelvis: Cervical Spine: normal cervical lordosis Thoracic/Lumbar Spine: thoracic and lumbar spine normal to inspection Skin: General skin exam: no rashes or lesions noted Neuro: General: patient oriented x3, tone normal and moves all extremities Extrem: General: Yes normal to inspection and Yes capillary refill normal Urology Results Labs CBC & Chem 7: 10/29/21 07:50 10/29/21 07:50 Labs: Laboratory Results - last 24 hr 10/28/21 10/29/21 10/29/21 20:11 02:00 07:50 WBC 3.6 L RBC 3.09 L Hgb 8.8 L Hct 27.5 L MCV 89.0 MCH 28.5 MCHC 32.0 RDW 15.8 Plt Count 234 MPV 9.4 Absolute Nucleated RBC 0.000 Nucleated RBC % (auto) 0.0 aPTT Heparin Protocol 53.5 D 52.3 L Sodium Potassium Chloride Carbon Dioxide Anion Gap BUN Creatinine Estim Creat Clear Calc Estimated GFR Random Glucose Calcium 10/29/21 10/29/21 10/29/21 07:50 07:50 14:41 WBC RBC Hgb Hct MCV MCH MCHC RDW Plt Count MPV Absolute Nucleated RBC Nucleated RBC % (auto) aPTT Heparin Protocol 102.8 H D 51.0 L D Sodium 144 Potassium 3.3 Chloride 111 H Carbon Dioxide 24 Anion Gap 12 BUN 24 H Creatinine 1.46 H Estim Creat Clear Calc 36.0 Estimated GFR 46 Random Glucose 112 Calcium 9.4 Progress Note: A&P Assessment and plan (1) Urinary tract infection: Status: Acute (2) BPH w urinary obs/LUTS: Status: Acute Plan Plan for removal of bladder stones Time Spent With Patient Time: Total time spent is greater than 50% in coordination of care (as documented) at patient's floor/unit and/or counseling patient: Progress Note: Quality Stroke Does the patient have a stroke diagnosis?: No
[2021-10-29 19:47] VITALS: BP 109/64; PULSE 88; RESP 18; TEMP 36; O2SAT 95
[2021-10-29] MEDS: Atorvastatin Calcium 80 MG TABLET PO (20:05)
[2021-10-29] MEDS: Doxazosin Mesylate 2 MG TABLET 4 MG PO (20:05)
[2021-10-29] MEDS: Artificial Tears 15 ML DROPS 1 DROP EYE-BOTH (21:18)
[2021-10-29 22:01] LABS: PTT Heparin Drip 57.5 SEC (53-77.9)
[2021-10-29 23:29] VITALS: BP 116/62; PULSE 80; RESP 18; TEMP 36.8; O2SAT 97
[2021-10-30] MEDS: Heparin Sodium,Porcine/1/2NS 25,000 UNIT/250 ML IV.SOLN 11.18 UNIT IVCONT (02:08)
[2021-10-30 03:17] VITALS: BP 112/63; PULSE 89; RESP 18; TEMP 36.5; O2SAT 96
[2021-10-30 04:01] LABS: Hematocrit 25.1 % (42.0-52.0); Hemoglobin 8.1 g/dl (14.0-18.0); Mean Corpuscular HGB Conc 32.3 g/dl (31.0-36.0); Mean Corpuscular Hemoglobin 29.1 pg (27.0-33.0); Mean Corpuscular Volume 90.3 fL (80.0-98.0); Mean Platelet Volume 9.2 fL (9.4-12.4); Platelet Count 199 X10*3/uL (160-400); Red Blood Count 2.78 X10*6/uL (4.60-5.80); Red Cell Distribution Width 15.9 % (11.0-16.0); White Blood Count 3.5 X10*3/uL (4.8-10.8)
[2021-10-30 04:17] LABS: PTT Heparin Drip 56.3 SEC (53-77.9)
[2021-10-30 04:23] LABS: Anion Gap 11 (12-20); Blood Urea Nitrogen 24 mg/dL (9-16); Calcium 9.3 mg/dL (8.4-10.2); Carbon Dioxide 25 mmol/L (22-29); Chloride 112 mmol/L (96-108); Creatinine Clr Calc Pharmacy 37.3; Estimated Glomerular Filt Rate 48; Glucose Random 128 mg/dL (60-115); Potassium 3.3 mmol/L (3.3-5.1); Sodium 145 mmol/L (135-145)
[2021-10-30 07:39] VITALS: BP 130/68; PULSE 87; RESP 18; TEMP 36.3; O2SAT 96
[2021-10-30 10:30] LABS: PTT Heparin Drip 31.3 SEC (53-77.9)
[2021-10-30 11:42] VITALS: BP 126/73; PULSE 93; RESP 18; TEMP 36.4; O2SAT 96
--- NOTE | 2021-10-30 11:47 | P.PNIM_ITS ---
Subjective Subjective Date of Service: 10/30/21 Interval History: Seen and evaluated this morning More alert and interactive but still mildly confused Hematuria improving Denies any pain Not eating much per nursing staff No reported overnight events Review of Systems No fever, chills but reports generalized weakness No chest pain, palpitation No shortness of breath or coughing No abdominal pain, nausea or vomiting No urinary symptoms No any rash or wounds Physical Exam Vital Signs: Vital Signs: Last Vital Signs Temp 97.5 F 10/30/21 11:42 Pulse 93 10/30/21 11:42 Resp 18 10/30/21 11:42 BP 126/73 10/30/21 11:42 Pulse Ox 96 10/30/21 11:42 O2 Del Method 10/30/21 11:42 BMI result Body Mass Index 19.2 Const: Other: Constitutional : Alert, interactive but slow, not in distress Neck : Normal inspection, Supple Cardiovascular : RRR, no JVP, no lower extremity edema Respiratory : fair bilateral air entry, no crackles, wheezes or rhonchi Gastrointestinal: soft, lax, Normal bowel sounds, Non tender Skin : Warm, Dry, nasal lesion Neurological : Alert & disoriented and still mildly confused, No focal deficit Objective Data Active Medications Artificial Tears (Artificial Tears 15 Ml Drops) 1 drop EYE-BOTH Q2H PRN PRN Reason: Dry Eyes Last Admin: 10/29/21 21:18 Dose: 1 drop Documented By: MYNOR Aspirin (Aspirin 81 Mg Tab.Chew) 81 mg PO DAILY [facility] Last Admin: 10/30/21 09:35 Dose: Not Given Documented By: ALMA Non-Admin Reason: NPO Atorvastatin Calcium (Atorvastatin Calcium 80 Mg Tablet) 80 mg PO BEDTIME [facility] Last Admin: 10/29/21 20:05 Dose: 80 mg Documented By: MYNOR Doxazosin Mesylate (Doxazosin Mesylate 2 Mg Tablet) 4 mg PO BEDTIME [facility] Last Admin: 10/29/21 20:05 Dose: 4 mg Documented By: MYNOR Finasteride (Finasteride 5 Mg Tablet) 5 mg PO DAILY [facility] Last Admin: 10/30/21 09:35 Dose: Not Given Documented By: ALMA Non-Admin Reason: NPO Ampicillin Sodium 500 mg/ (Sodium Chloride) 100 mls @ 200 mls/hr IV Q6H [facility] Last Infusion: 10/30/21 10:12 Dose: 0 mls/hr Documented By: ALMA Metoprolol Tartrate (Metoprolol Tartrate 12.5 Mg Halftab) 12.5 mg PO BID [facility]; Protocol Last Admin: 10/30/21 09:35 Dose: Not Given Documented By: ALMA Non-Admin Reason: NPO Omeprazole (Omeprazole 20 Mg Capsule.Dr) 20 mg PO DAILY@0630 [facility] Last Admin: 10/30/21 05:52 Dose: Not Given Documented By: MYNOR Non-Admin Reason: NPO Pharmacy Consult (Consult Rx Perform Med Rec) 1 each MISCELLANE ONCE PRN PRN Reason: Consult order Labs CBC & Chem 7: 10/30/21 03:55 10/30/21 03:55 Labs: Laboratory Results - last 24 hr 10/29/21 10/29/21 10/30/21 14:41 21:41 03:55 MCV 90.3 MCH 29.1 MCHC 32.3 RDW 15.9 Plt Count 199 MPV 9.2 L Absolute Nucleated RBC 0.000 Nucleated RBC % (auto) 0.0 aPTT Heparin Protocol 51.0 L D 57.5 Anion Gap Estim Creat Clear Calc Estimated GFR Random Glucose Calcium 10/30/21 10/30/21 10/30/21 03:55 03:55 10:02 MCV MCH MCHC RDW Plt Count MPV Absolute Nucleated RBC Nucleated RBC % (auto) aPTT Heparin Protocol 56.3 31.3 L D Anion Gap 11 L Estim Creat Clear Calc 37.3 Estimated GFR 48 Random Glucose 128 H Calcium 9.3 Microbiology Microbiology Results: Microbiology 10/26/21 01:50 Urine Culture - Preliminary Urine Catheterized - Barry Catheter Enterococcus faecalis Staphylococcus species Assessment and Plan (1) NSTEMI (non-ST elevated myocardial infarction): Status: Acute (2) Acute renal failure superimposed on stage 2 chronic kidney disease: Status: Acute (3) Urinary tract infection: Status: Acute Plan ?81-year-old gentleman with past medical history of hypertension hyperlipidemia? NSTEMI Troponin trended down Echocardiogram suggestive of underlying CAD or stress-induced cardiomyopathy. Cardiology recommended to discontinue heparin drip continue aspirin, statin and beta-joey cardiology to follow and decide about transfer to [facility] for cardiac angiogram Septic shock, resolved secondary to urosepsis Required ICU admission and pressors Urine culture growing Enterococcus faecalis and Staph species Continue ampicillin Hematuria Likely from placement of Barry catheter Continue to monitor Urology input appreciated, to do cystoscopy with stone removal today Billy I on CKD stage 2 Improving back to baseline Monitor intake and output Follow BMP Acute toxic-metabolic encephalopathy ?fluctuating< improving ?likely due to acute infection, hypoactive delirium no prior history of underlying dementia has not seen a physician in several years ?treat infection follow clinical course ?recurrent orientation, increase physical activity DVT PPX Heparin The patient will need overnight hospital stay to continue treatment of encephalopathy, urosepsis pending safe discharge plan to prevent possible decompensation into septic shock. Quality Stroke Does the patient have a stroke diagnosis?: No VTE Prior VTE?: No VTE Risk Level:: Medical - moderate - high VTE Device Contraindication: N/A - Device Ordered VTE Drug Contraindication: N/A - Med Ordered
--- NOTE | 2021-10-30 13:26 | P.PNCA_ITS ---
Subjective Subjective Date of Service: 10/30/21 Interval history: Feeling better. No chest pain or shortness breath. Echo and labs reviewed. Blood cultures from 10/26 are positive with Enterococcus faecalis and Staphylococcus species. Physical Exam Vital Signs: Last Vital Signs Temp 97.5 F 10/30/21 11:42 Pulse 93 10/30/21 11:42 Resp 18 10/30/21 11:42 BP 126/73 10/30/21 11:42 Pulse Ox 96 10/30/21 11:42 O2 Del Method 10/30/21 11:42 BMI result Body Mass Index 19.2 GENERAL APPEARANCE: in no acute distress, right IJ triple-lumen catheter.. NECK: no carotid bruit, no obvious jugular venous distention. SKIN: no suspicious lesions, warm and dry. HEART: no murmurs, regular rate and rhythm. LUNGS: clear to auscultation bilaterally. ABDOMEN: soft, nontender. EXTREMITIES: no edema. PERIPHERAL PULSES: equal. NEUROLOGIC: No gross deficits, AAO X 3 Objective Labs and Meds Result diagrams: 10/30/21 03:55 10/30/21 03:55 Lab results: Laboratory Results - last 24 hr 10/29/21 10/29/21 10/30/21 14:41 21:41 03:55 WBC 3.5 L RBC 2.78 L Hgb 8.1 L Hct 25.1 L MCV 90.3 MCH 29.1 MCHC 32.3 RDW 15.9 Plt Count 199 MPV 9.2 L Absolute Nucleated RBC 0.000 Nucleated RBC % (auto) 0.0 aPTT Heparin Protocol 51.0 L D 57.5 Sodium Potassium Chloride Carbon Dioxide Anion Gap BUN Creatinine Estim Creat Clear Calc Estimated GFR Random Glucose Calcium 10/30/21 10/30/21 10/30/21 03:55 03:55 10:02 WBC RBC Hgb Hct MCV MCH MCHC RDW Plt Count MPV Absolute Nucleated RBC Nucleated RBC % (auto) aPTT Heparin Protocol 56.3 31.3 L D Sodium 145 Potassium 3.3 Chloride 112 H Carbon Dioxide 25 Anion Gap 11 L BUN 24 H Creatinine 1.41 H Estim Creat Clear Calc 37.3 Estimated GFR 48 Random Glucose 128 H Calcium 9.3 Progress Note: A&P Assessment and plan (1) NSTEMI (non-ST elevated myocardial infarction): Status: Acute (2) Acute renal failure superimposed on stage 2 chronic kidney disease: Status: Acute (3) Cardiomyopathy: Status: Acute Plan 81-year-old gentleman who presented with urosepsis and required ICU admission with fluid resuscitation and vasopressors. He ruled in for NSTEMI and echocardiography has shown wall motion abnormalities with EF of 25 to 30%. He is denying chest discomfort shortness of breath. He was confused but is improving. He is on IV antibiotics. I think he will need diagnostic angiogram. Currently he is mental status is improving but not completely back to baseline. Also he had kidney injury on this admission. Depending on his clinical situation in the next day or 2 we wi ll decide about cardiac catheterization inpatient versus outpatient. Continue baby aspirin and atorvastatin. Agree with low-dose metoprolol. He is anemic with hemoglobin of 8.1. Please monitor closely. Thank you for allowing me to participate in the care of your patient. Please feel free to contact me if you have any questions. Time Spent With Patient Time: Total time spent is greater than 50% in coordination of care (as documented) at patient's floor/unit and/or counseling patient: Progress Note: Quality Stroke Does the patient have a stroke diagnosis?: No Procedures Date of Service Date of Service: 10/30/21
[2021-10-30 15:56] VITALS: BP 121/81; PULSE 89; TEMP 36.8; O2SAT 96
[2021-10-30 16:08] VITALS: BMI 19.2
--- NOTE | 2021-10-30 18:28 | PC.NURSE ---
Pt is alert and oriented x3, but can be forgetful at times Denies pain or discomfort. Pt On heparin drip this am. 2 therapeutic ranges reached and due to scheduled Cystoscopy, Heparin was discontinued at 10am. Pt remained NPO, At 1530, contatcted about procedure, procedure cancelled today pending clearance from [employer]. Pt is back on a regular diet.
[2021-10-30 19:29] VITALS: BP 115/64; PULSE 91; RESP 19; TEMP 36.2; O2SAT 96
[2021-10-30] MEDS: Doxazosin Mesylate 2 MG TABLET 4 MG PO (20:14)
[2021-10-30] MEDS: Atorvastatin Calcium 80 MG TABLET PO (20:15)
[2021-10-30] MEDS: Metoprolol Tartrate 12.5 MG HALFTAB PO (20:15)
[2021-10-30 23:34] VITALS: BP 111/59; PULSE 79; RESP 19; TEMP 36.4; O2SAT 94
[2021-10-31 03:40] VITALS: BP 127/68; PULSE 81; RESP 18; TEMP 36.3; O2SAT 97
[2021-10-31] MEDS: Omeprazole 20 MG CAPSULE.DR PO (05:34)
[2021-10-31] MEDS: Artificial Tears 15 ML DROPS 1 DROP EYE-BOTH (05:38)
[2021-10-31 05:41] LABS: Hematocrit 25.6 % (42.0-52.0); Hemoglobin 8.4 g/dl (14.0-18.0); Mean Corpuscular HGB Conc 32.8 g/dl (31.0-36.0); Mean Corpuscular Hemoglobin 29.4 pg (27.0-33.0); Mean Corpuscular Volume 89.5 fL (80.0-98.0); Mean Platelet Volume 9.2 fL (9.4-12.4); Platelet Count 210 X10*3/uL (160-400); Red Blood Count 2.86 X10*6/uL (4.60-5.80); White Blood Count 2.9 X10*3/uL (4.8-10.8)
[2021-10-31 05:53] LABS: Anion Gap 11 (12-20); Blood Urea Nitrogen 20 mg/dL (9-16); Calcium 9.1 mg/dL (8.4-10.2); Carbon Dioxide 26 mmol/L (22-29); Chloride 113 mmol/L (96-108); Creatinine Clr Calc Pharmacy 41.8; Estimated Glomerular Filt Rate 55; Glucose Random 114 mg/dL (60-115); Potassium 3.5 mmol/L (3.3-5.1); Sodium 146 mmol/L (135-145)
[2021-10-31] MEDS: Dextrose 5 % 1,000 ML 100 ML IVCONT (07:54)
[2021-10-31] MEDS: Aspirin 81 MG TAB.CHEW PO (07:54)
[2021-10-31] MEDS: Metoprolol Tartrate 12.5 MG HALFTAB PO ×2 (07:54→19:23)
[2021-10-31] MEDS: Finasteride 5 MG TABLET PO (07:54)
[2021-10-31 08:00] VITALS: BP 121/73; PULSE 84; RESP 15; TEMP 36.4; O2SAT 94
[2021-10-31 11:32] VITALS: BP 105/62; PULSE 82; RESP 15; TEMP 37.6; O2SAT 96
--- NOTE | 2021-10-31 13:13 | PM.PNCARD ---
Subjective Subjective Date of Service: 10/31/21 Interval history: No symptoms. Mildly confused and forgetful. Urology planning a cystoscopy. Physical Exam Vital Signs: Last Vital Signs Temp 99.6 F 10/31/21 11:32 Pulse 82 10/31/21 11:32 Resp 15 10/31/21 11:32 BP 105/62 10/31/21 11:32 Pulse Ox 96 10/31/21 11:32 O2 Del Method 10/31/21 11:32 BMI result Body Mass Index 19.2 GENERAL APPEARANCE: in no acute distress, right IJ triple-lumen catheter.. NECK: no carotid bruit, no obvious jugular venous distention. SKIN: no suspicious lesions, warm and dry. HEART: no murmurs, regular rate and rhythm. LUNGS: clear to auscultation bilaterally. ABDOMEN: soft, nontender. EXTREMITIES: no edema. PERIPHERAL PULSES: equal. NEUROLOGIC: No gross deficits, AAO X 3 Objective Labs and Meds Result diagrams: 10/31/21 05:18 10/31/21 05:18 Lab results: Laboratory Results - last 24 hr 10/31/21 10/31/21 05:18 05:18 WBC 2.9 L RBC 2.86 L Hgb 8.4 L Hct 25.6 L MCV 89.5 MCH 29.4 MCHC 32.8 RDW 16.0 Plt Count 210 MPV 9.2 L Absolute Nucleated RBC 0.000 Nucleated RBC % (auto) 0.0 Sodium 146 H Potassium 3.5 Chloride 113 H Carbon Dioxide 26 Anion Gap 11 L BUN 20 H Creatinine 1.26 Estim Creat Clear Calc 41.8 Estimated GFR 55 Random Glucose 114 Calcium 9.1 Progress Note: A&P Assessment and plan (1) NSTEMI (non-ST elevated myocardial infarction): Status: Acute (2) Cardiomyopathy: Status: Acute Plan 81-year-old gentleman is presenting septic shock. He was noted to have elevated troponin levels with high sensitive troponin levels peaking at 5532. Echocardiography has shown EF of 25-30% with changes consistent with multivessel disease versus takotsubo cardiomyopathy. Overall the appearance is suggestive more of Takotsubo but it is a diagnosis of exclusion after cardiac catheterization. Clinically has been stable and has no chest pain or shortness of breath. Also not in heart failure by exam. I think a repeat echocardiogram today to see if there is any recovery in the ejection fraction. He needs cystoscopy under general anaesthesia. I will comment about it after that echocardiography has been performed. I have explained to the patient that given the diagnostic angiogram but I think he should have workup completed for his urological issues before we transfer to [facility]. Continue baby aspirin atorvastatin and low-dose beta-joey. If ejection fraction is still induce then I would consider adding ARB. Thank you for allowing me to participate in the care of your patient. Please feel free to contact me if you have any questions. Time Spent With Patient Time: Total time spent is greater than 50% in coordination of care (as documented) at patient's floor/unit and/or counseling patient: Progress Note: Quality Stroke Does the patient have a stroke diagnosis?: No Procedures Date of Service Date of Service: 10/31/21
--- NOTE | 2021-10-31 13:15 | CA_ITS ---
Transthoracic Echocardiogram Patient (Last, First, Middle): Festus Valenzuela J Gender: Male Date of : 1940 Age: 81 Procedure Date: 10/31/2021 Procedure Type: Transthoracic Echocardiogram Location: S3E Height: 180.34 cm Weight: 70.99 kg BSA: 1.90 m2 Heart Rate: bpm BP: 105 / 62 mmHg Rotary Drum Dyer: Referring MD: Osvaldo Lim MD Jitterbug Operator: Osvaldo Lim MD Symptoms: possible takotsubo RWMA Study Quality: Fair ECG Rhythm: Sinus Conclusions: - No significant change in ejection fraction noticed. - Wall motion abnormalities consistent mid multivessel disease versus Takotsubo cardiomyopathy. Findings Left Ventricle Normal left ventricular cavity size. There is normal left ventricular wall thickness. The left ventricular systolic function is moderately decreased. The visually estimated ejection fraction is between 30-35%. There is evidence of regional wall motion abnormalities. Diastolic function is indeterminate on the basis of available data. Wall Motion Rest Echo Findings The basal inferior segment is hypokinetic. The entire apex, the mid anterior, mid inferior, mid anterolateral, mid inferoseptal, mid anteroseptal, and mid inferolateral segments are akinetic. Right Ventricle Normal right ventricular cavity size and systolic function. Prior Study Comparison No significant change compared to prior study dated: 10/26/2021. Measurements 2D Linear Measurements IVSd: 1.05 0.6-0.9/0.6-1.0 cm LVIDd: 4.25 3.9-5.3/4.2-5.9 cm LVIDd Index: 2.24 2.4-3.2/2.2-3.1 cm/m2 LVIDs: 3.31 2.0-3.6 cm LVPWd: 1.07 0.7-1.1 cm LV Mass: 188.98 67-162/88-224 g LV Mass Index: 99.46 43-95/49-115 g/m2 2D Systolic Function EF 4C: 35.30 >55% EF 2C: 36.90 >55% EF BiP: 36.30 >55% Updated in Other Vendor System with Status of Final Osvaldo Lim MD electronically signed on 10/31/2021 3:30:21 PM with status of Final
--- NOTE | 2021-10-31 13:27 | P.PNIM_ITS ---
Subjective Subjective Date of Service: 10/31/21 Interval History: Seen and evaluated this morning alert and interactive but still confused Hematuria resolving Denies any pain Not eating much per nursing staff No reported overnight events Review of Systems No fever, chills but reports generalized weakness No chest pain, palpitation No shortness of breath or coughing No abdominal pain, nausea or vomiting No urinary symptoms No any rash or wounds Physical Exam Vital Signs: Vital Signs: Last Vital Signs Temp 99.6 F 10/31/21 11:32 Pulse 82 10/31/21 11:32 Resp 15 10/31/21 11:32 BP 105/62 10/31/21 11:32 Pulse Ox 96 10/31/21 11:32 O2 Del Method 10/31/21 11:32 BMI result Body Mass Index 19.2 Const: Other: Constitutional : Alert, interactive but slow, not in distress Neck : Normal inspection, Supple Cardiovascular : RRR, no JVP, no lower extremity edema Respiratory : fair bilateral air entry, no crackles, wheezes or rhonchi Gastrointestinal: soft, lax, Normal bowel sounds, Non tender Skin : Warm, Dry, nasal lesion Urology: Hematuria resolving Neurological : Alert & disoriented and still mildly confused, No focal deficit Objective Data Active Medications Artificial Tears (Artificial Tears 15 Ml Drops) 1 drop EYE-BOTH Q2H PRN PRN Reason: Dry Eyes Last Admin: 10/31/21 05:38 Dose: 1 drop Documented By: ANJALI Aspirin (Aspirin 81 Mg Tab.Chew) 81 mg PO DAILY [facility] Last Admin: 10/31/21 07:54 Dose: 81 mg Documented By: DILLAN Atorvastatin Calcium (Atorvastatin Calcium 80 Mg Tablet) 80 mg PO BEDTIME [facility] Last Admin: 10/30/21 20:15 Dose: 80 mg Documented By: ANJALI Doxazosin Mesylate (Doxazosin Mesylate 2 Mg Tablet) 4 mg PO BEDTIME [facility] Last Admin: 10/30/21 20:14 Dose: 4 mg Documented By: ANJALI Finasteride (Finasteride 5 Mg Tablet) 5 mg PO DAILY [facility] Last Admin: 10/31/21 07:54 Dose: 5 mg Documented By: DILLAN Ampicillin Sodium 500 mg/ (Sodium Chloride) 100 mls @ 200 mls/hr IV Q6H [facility] Last Infusion: 10/31/21 08:58 Dose: 200 mls/hr Documented By: DILLAN Dextrose (D5w) 1,000 mls @ 100 mls/hr IVCONT .Q10H [facility] Stop: 10/31/21 17:44 Last Admin: 10/31/21 07:54 Dose: 100 mls/hr Documented By: DILLAN Metoprolol Tartrate (Metoprolol Tartrate 12.5 Mg Halftab) 12.5 mg PO BID [facility]; Protocol Last Admin: 10/31/21 07:54 Dose: 12.5 mg Documented By: DILLAN Omeprazole (Omeprazole 20 Mg Capsule.Dr) 20 mg PO DAILY@0630 [facility] Last Admin: 10/31/21 05:34 Dose: 20 mg Documented By: ANJALI Pharmacy Consult (Consult Rx Perform Med Rec) 1 each MISCELLANE ONCE PRN PRN Reason: Consult order Labs CBC & Chem 7: 10/31/21 05:18 10/31/21 05:18 Labs: Laboratory Results - last 24 hr 10/31/21 10/31/21 05:18 05:18 MCV 89.5 MCH 29.4 MCHC 32.8 RDW 16.0 Plt Count 210 MPV 9.2 L Absolute Nucleated RBC 0.000 Nucleated RBC % (auto) 0.0 Anion Gap 11 L Estim Creat Clear Calc 41.8 Estimated GFR 55 Random Glucose 114 Calcium 9.1 Microbiology Microbiology Results: Microbiology 10/26/21 01:50 Urine Culture - Final Urine Catheterized - Barry Catheter Enterococcus faecalis Coag negative Staphylococcus 10/26/21 00:43 Blood Culture - Final Blood - Venous No growth after 5 days. 10/25/21 22:12 Blood Culture - Final Blood - Venous No growth after 5 days. Assessment and Plan (1) Cardiomyopathy: Status: Acute (2) Acute renal failure superimposed on stage 2 chronic kidney disease: Status: Acute (3) NSTEMI (non-ST elevated myocardial infarction): Status: Acute (4) Hematuria: Status: Acute Plan ?81-year-old gentleman with past medical history of hypertension hyperlipidemia? NSTEMI Troponin trended down Echocardiogram suggestive of underlying CAD or stress-induced cardiomyopathy. Heparin drip discontinued continue aspirin, statin and beta-joey Pending repeat echo cardiology following, to clear him for procedures and possible transfer to [facility] Septic shock, resolved secondary to urosepsis, UTI associated with Barry catheter Required ICU admission and pressors Urine culture growing Enterococcus faecalis and Staph species Continue ampicillin D2 Hematuria Likely from replacement of Barry catheter Continue to monitor Urology input appreciated, to do cystoscopy when medically clear Billy I on CKD stage 2 Improving back to baseline Monitor intake and output Follow BMP Acute toxic-metabolic encephalopathy improving likely due to acute infection, hypoactive delirium no prior history of underlying dementia has not seen a physician in several years ?treat infection follow clinical course ?recurrent orientation, increase physical activity Leukopenia Seems to be related to infection Monitor CBC DVT PPX Heparin The patient will need overnight hospital stay to continue treatment of NSTEMI, hematuria pending safe discharge plan to prevent possible decompensation into septic shock. Quality Stroke Does the patient have a stroke diagnosis?: No VTE Prior VTE?: No VTE Risk Level:: Medical - moderate - high VTE Device Contraindication: N/A - Device Ordered VTE Drug Contraindication: N/A - Med Ordered
--- NOTE | 2021-10-31 14:25 | MHC.CM.PN ---
Per ROUNDS discussion, patient is Not yet medically cleared for discharge today R/T to Treatment of NSTEMI and Hematuria. Discharge plan Home resume VNA vs STR. CM will continue to follow for discharge need.
[2021-10-31 15:30] VITALS: BP 123/61; PULSE 80; RESP 16; TEMP 36.6; O2SAT 95
[2021-10-31] MEDS: Doxazosin Mesylate 2 MG TABLET 4 MG PO (19:23)
[2021-10-31] MEDS: Atorvastatin Calcium 80 MG TABLET PO (19:23)
[2021-10-31 20:00] VITALS: BP 124/72; PULSE 91; RESP 17; TEMP 36.9; O2SAT 96
[2021-10-31 23:36] VITALS: BP 121/73; PULSE 76; RESP 16; TEMP 36.7; O2SAT 95
[2021-11-01] VITALS (13 sets, daily range): BP systolic 83–136; BP diastolic 46–81; PULSE 64–87; RESP 15–20; TEMP 36.1–37.1; O2SAT 93–98; BMI 23.7
--- NOTE | 2021-11-01 | ECG_ITS ---
Test Reason : cp Blood Pressure : / mmHG Vent. Rate : 079 BPM Atrial Rate : 079 BPM P-R Int : 166 ms QRS Dur : 120 ms QT Int : 458 ms P-R-T Axes : 051 -42 203 degrees QTc Int : 525 ms Normal sinus rhythm Left axis deviation Non-specific intra-ventricular conduction delay T wave abnormality, consider anterolateral ischemia Abnormal ECG When compared with ECG of 25-OCT-2021 22:11, T wave inversion now evident in Anterolateral leads QT has lengthened Referred By: Annie Leslie Electronically Signed By:EDY TRUONG
[2021-11-01] MEDS: Omeprazole 20 MG CAPSULE.DR PO (05:22)
[2021-11-01 06:33] LABS: Anion Gap 12 (12-20); Blood Urea Nitrogen 16 mg/dL (9-16); Calcium 9.1 mg/dL (8.4-10.2); Carbon Dioxide 25 mmol/L (22-29); Chloride 111 mmol/L (96-108); Creatinine Clr Calc Pharmacy 51.2; Estimated Glomerular Filt Rate 56; Glucose Random 117 mg/dL (60-115); Potassium 3.5 mmol/L (3.3-5.1); Sodium 144 mmol/L (135-145)
[2021-11-01 06:38] LABS: Hematocrit 26.2 % (42.0-52.0); Hemoglobin 8.4 g/dl (14.0-18.0); Mean Corpuscular HGB Conc 32.1 g/dl (31.0-36.0); Mean Corpuscular Volume 90.3 fL (80.0-98.0); Mean Platelet Volume 9.6 fL (9.4-12.4); Platelet Count 224 X10*3/uL (160-400); Red Cell Distribution Width 16.1 % (11.0-16.0); White Blood Count 3.5 X10*3/uL (4.8-10.8)
[2021-11-01] MEDS: Finasteride 5 MG TABLET PO (08:49)
[2021-11-01] MEDS: Metoprolol Tartrate 12.5 MG HALFTAB PO ×2 (08:49→21:06)
[2021-11-01] MEDS: Aspirin 81 MG TAB.CHEW PO (08:49)
--- NOTE | 2021-11-01 09:50 | P.PNCA_ITS ---
Subjective Subjective Date of Service: 11/01/21 Interval history: Confused. Echocardiography has shown EF 30 35% with wall motion abnormalities as before. Denying chest pain or shortness of breath. Complaining of central abdominal pain. Waiting to undergo cystoscopy. Physical Exam Vital Signs: Last Vital Signs Temp 98.8 F 11/01/21 08:00 Pulse 77 11/01/21 08:00 Resp 18 11/01/21 08:00 BP 123/70 11/01/21 08:00 Pulse Ox 96 11/01/21 08:00 O2 Del Method 11/01/21 08:00 BMI result Body Mass Index 23.7 GENERAL APPEARANCE: in no acute distress, right IJ triple-lumen catheter.. NECK: no carotid bruit, no obvious jugular venous distention. SKIN: no suspicious lesions, warm and dry. HEART: no murmurs, regular rate and rhythm. LUNGS: clear to auscultation bilaterally. ABDOMEN: soft, nontender. EXTREMITIES: no edema. PERIPHERAL PULSES: equal. NEUROLOGIC: No gross deficits, confused. Objective Labs and Meds Result diagrams: 11/01/21 05:19 11/01/21 05:19 Lab results: Laboratory Results - last 24 hr 11/01/21 11/01/21 05:19 05:19 WBC 3.5 L RBC 2.90 L Hgb 8.4 L Hct 26.2 L MCV 90.3 MCH 29.0 MCHC 32.1 RDW 16.1 H Plt Count 224 MPV 9.6 Absolute Nucleated RBC 0.000 Nucleated RBC % (auto) 0.0 Sodium 144 Potassium 3.5 Chloride 111 H Carbon Dioxide 25 Anion Gap 12 BUN 16 Creatinine 1.24 Estim Creat Clear Calc 51.2 Estimated GFR 56 Random Glucose 117 H Calcium 9.1 Progress Note: A&P Assessment and plan (1) NSTEMI (non-ST elevated myocardial infarction): Status: Acute (2) Cardiomyopathy: Status: Acute Plan 81-year-old gentleman is presenting septic shock. He was noted to have elevated troponin levels with high sensitive troponin levels peaking at 5532. Echocardiography has shown EF of 25-30% with changes consistent with multivessel disease versus takotsubo cardiomyopathy. Overall the appearance is suggestive more of Takotsubo but it is a diagnosis of exclusion after cardiac catheterizati on. Clinically has been stable and has no chest pain or shortness of breath. Also not in heart failure by exam. Repeat echocardiography has shown EF 30 35% with similar wall motion abnormalities. He needs cystoscopy under general anaesthesia. He can proceed with intermediate risk for periprocedural complications. Will reassess him after cystoscopy to see if he is in any shape to be transferred. Currently he is confused and I think we may have to reconsider cardiac catheterization on him and maybe do it as outpatient as he recovers completely. Continue baby aspirin atorvastatin and low-dose beta-joey. Once done with cystoscopy and stable without any bleeding or clots/concern for obstruction -add low-dose losartan. Thank you for allowing me to participate in the care of your patient. Please feel free to contact me if you have any questions. Time Spent With Patient Time: Total time spent is greater than 50% in coordination of care (as documented) at patient's floor/unit and/or counseling patient: Progress Note: Quality Stroke Does the patient have a stroke diagnosis?: No Procedures Date of Service Date of Service: 11/01/21
--- NOTE | 2021-11-01 10:16 | P.PNIM_ITS ---
Subjective Subjective Date of Service: 11/01/21 Interval History: Seen and evaluated this morning alert and interactive but still confused Hematuria resolving Denies any pain No reported overnight events Review of Systems No fever, chills but reports generalized weakness No chest pain, palpitation No shortness of breath or coughing No abdominal pain, nausea or vomiting No urinary symptoms No any rash or wounds Physical Exam Vital Signs: Vital Signs: Last Vital Signs Temp 98.8 F 11/01/21 08:00 Pulse 77 11/01/21 08:00 Resp 18 11/01/21 08:00 BP 123/70 11/01/21 08:00 Pulse Ox 96 11/01/21 08:00 O2 Del Method 11/01/21 08:00 BMI result Body Mass Index 23.7 Const: Other: Constitutional : Alert, interactive but slow, not in distress Neck : Normal inspection, Supple Cardiovascular : RRR, no JVP, no lower extremity edema Respiratory : fair bilateral air entry, no crackles, wheezes or rhonchi Gastrointestinal: soft, lax, Normal bowel sounds, Non tender Skin : Warm, Dry, nasal lesion Urology: Hematuria resolving Neurological : Alert & disoriented and still mildly confused, No focal deficit Objective Data Active Medications Artificial Tears (Artificial Tears 15 Ml Drops) 1 drop EYE-BOTH Q2H PRN PRN Reason: Dry Eyes Last Admin: 10/31/21 05:38 Dose: 1 drop Documented By: ANJALI Aspirin (Aspirin 81 Mg Tab.Chew) 81 mg PO DAILY [facility] Last Admin: 11/01/21 08:49 Dose: 81 mg Documented By: AFRICA Atorvastatin Calcium (Atorvastatin Calcium 80 Mg Tablet) 80 mg PO BEDTIME [facility] Last Admin: 10/31/21 19:23 Dose: 80 mg Documented By: ELIS Doxazosin Mesylate (Doxazosin Mesylate 2 Mg Tablet) 4 mg PO BEDTIME [facility] Last Admin: 10/31/21 19:23 Dose: 4 mg Documented By: ELIS Finasteride (Finasteride 5 Mg Tablet) 5 mg PO DAILY [facility] Last Admin: 11/01/21 08:49 Dose: 5 mg Documented By: AFRICA Ampicillin Sodium 500 mg/ (Sodium Chloride) 100 mls @ 200 mls/hr IV Q6H [facility] Last Infusion: 11/01/21 09:57 Dose: 0 mls/hr Documented By: AFRICA Metoprolol Tartrate (Metoprolol Tartrate 12.5 Mg Halftab) 12.5 mg PO BID [facility]; Protocol Last Admin: 11/01/21 08:49 Dose: 12.5 mg Documented By: AFRICA Omeprazole (Omeprazole 20 Mg Capsule.) 20 mg PO DAILY@0630 [facility] Last Admin: 11/01/21 05:22 Dose: 20 mg Documented By: HERNAN Pharmacy Consult (Consult Rx Perform Med Rec) 1 each MISCELLANE ONCE PRN PRN Reason: Consult order Labs CBC & Chem 7: 11/01/21 05:19 11/01/21 05:19 Labs: Laboratory Results - last 24 hr 11/01/21 11/01/21 05:19 05:19 MCV 90.3 MCH 29.0 MCHC 32.1 RDW 16.1 H Plt Count 224 MPV 9.6 Absolute Nucleated RBC 0.000 Nucleated RBC % (auto) 0.0 Anion Gap 12 Estim Creat Clear Calc 51.2 Estimated GFR 56 Random Glucose 117 H Calcium 9.1 Microbiology Microbiology Results: Microbiology 10/26/21 01:50 Urine Culture - Final Urine Catheterized - Barry Catheter Enterococcus faecalis Coag negative Staphylococcus Assessment and Plan (1) Hematuria: Status: Acute (2) Cardiomyopathy: Status: Acute (3) NSTEMI (non-ST elevated myocardial infarction): Status: Acute (4) Acute renal failure superimposed on stage 2 chronic kidney disease: Status: Acute Plan ?81-year-old gentleman with past medical history of hypertension hyperlipidemia? NSTEMI Echocardiogram suggestive of underlying CAD or stress-induced cardiomyopathy. Repeated the echo showing no changes. Wall motion abnormalities consistent mid multivessel disease versus takotsubo CMP. Heparin drip discontinued after 48 hours continue aspirin, statin and beta-joey cardiology following, possible transfer to [facility] by tomorrow Septic shock, resolved secondary to urosepsis, UTI associated with Barry catheter Required ICU admission and pressors Urine culture growing Enterococcus faecalis and Staph species Continue ampicillin D5 of antibiotics Hematuria Likely from replacement of Barry catheter , resolving Continue to monitor Urology input appreciated, to do cystoscopy with stones removal Billy I on CKD stage 2 Improving back to baseline Monitor intake and output Follow BMP Acute toxic-metabolic encephalopathy improving likely due to acute infection, hypoactive delirium no prior history of underlying dementia has not seen a physician in several years ?treat infection follow clinical course ?recurrent orientation, increase physical activity Leukopenia Improving, Seems to be related to infection Monitor CBC DVT PPX Heparin The patient will need overnight hospital stay to continue treatment of NSTEMI, hematuria pending safe discharge plan to prevent possible decompensation into septic shock. Quality Stroke Does the patient have a stroke diagnosis?: No VTE Prior VTE?: No VTE Risk Level:: Medical - moderate - high VTE Device Contraindication: N/A - Device Ordered VTE Drug Contraindication: N/A - Med Ordered
--- NOTE | 2021-11-01 12:04 | PM.UROPN ---
Subjective Subjective Date of Service: 11/01/21 Interval history: Cleared from cardiology perspective for minor procedure Will plan for cystoscopy with bladder stone removal today Barry catheter will be replaced Procedure scheduled Physical Exam Vital Signs: Vital Signs: Last Vital Signs Temp 97.6 F 11/01/21 11:42 Pulse 64 11/01/21 11:42 Resp 18 11/01/21 11:42 BP 113/59 L 11/01/21 11:42 Pulse Ox 97 11/01/21 11:42 O2 Del Method 11/01/21 11:42 BMI result Body Mass Index 23.7 Const: General: cooperative, healthy appearing, comfortable and no acute distress Orientation/consciousness: patient oriented x3 HEENT: Face and sinus: Yes normal facial exam Mouth: moist mucous membranes Neck: Neck: Yes normal visual inspection, Yes full ROM and Yes trachea midline Chest: Chest palpation & inspection: normal inspection of the chest Resp: Effort & Inspection: normal respiratory effort, able to speak in complete sentences and no respiratory distress GI: Inspection: Yes normal to inspection Back/Spine/Pelvis: Cervical Spine: normal cervical lordosis Thoracic/Lumbar Spine: thoracic and lumbar spine normal to inspection Skin: General skin exam: no rashes or lesions noted Neuro: General: patient oriented x3, tone normal and moves all extremities Extrem: General: Yes normal to inspection and Yes capillary refill normal Urology Results Labs CBC & Chem 7: 11/01/21 05:19 11/01/21 05:19 Labs: Laboratory Results - last 24 hr 11/01/21 11/01/21 05:19 05:19 WBC 3.5 L RBC 2.90 L Hgb 8.4 L Hct 26.2 L MCV 90.3 MCH 29.0 MCHC 32.1 RDW 16.1 H Plt Count 224 MPV 9.6 Absolute Nucleated RBC 0.000 Nucleated RBC % (auto) 0.0 Sodium 144 Potassium 3.5 Chloride 111 H Carbon Dioxide 25 Anion Gap 12 BUN 16 Creatinine 1.24 Estim Creat Clear Calc 51.2 Estimated GFR 56 Random Glucose 117 H Calcium 9.1 Progress Note: A&P Assessment and plan (1) BPH w urinary obs/LUTS: Status: Acute (2) Urinary retention: Status: Acute (3) Bladder stones: Status: Acute Plan Risks, benefits and alternatives to therapy were discussed. These include but are not limited to infection, bleeding, damage to local organs and tissues, need for further interventions. Anesthetic risks regarding cardiac arrhythmia, blood clots, and potential mortality were discussed. The patient understands the typical recovery time and the outpatient nature of the procedure. After consideration of these risks the patient gives full informed consent and they wish to move ahead with the procedure. Cystoscopy bladder stone removal Time Spent With Patient Time: Total time spent is greater than 50% in coordination of care (as documented) at patient's floor/unit and/or counseling patient: Progress Note: Quality Stroke Does the patient have a stroke diagnosis?: No
--- NOTE | 2021-11-01 12:19 | MHC.CLN ---
F/U NPO FOR PROCEDURE TODAY BLADDER STONE REMOVAL. INTAKE VARIABLE SINCE ADMISSION WITH NPO AT TIMES FOR PROCEDURES. WEIGHT HISTORY VIEWED WITH MOST RECENT WEIGHT 11/01=79.4 KG,; BMI=23.7. CURRENT WEIGHT IN LINE WITH WEIGHT .=82.6 KG. RECOMMEND CARDIAC DIET WHEN DIET RESUMES. FOLLOW FOR INTAKE AND WEIGHTS.
--- NOTE | 2021-11-01 15:16 | PC.NURSE ---
TLC leaking. All ports flush but only can get blood return from brown port. Catheter appears to have migrated. Peripheral access put in left forarm. TLC removed per protocol. Occlusive dressing applied. Patient tolerated well.
--- NOTE | 2021-11-01 17:51 | P.CONAN_ITS ---
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) Urinary tract infection (Acute) Sepsis (Acute) BPH w urinary obs/LUTS (Acute) Urinary retention (Acute) Septic shock (Acute) Past Medical History Medical History Accelerated essential hypertension HTN (hypertension) Hypercholesterolemia Hyperlipidemia OA (osteoarthritis) Penile mass Pulmonary embolism Shortness of breath Family History Family history of problems with anesthesia: No Surgical History Surgical History History of surgery History of Problems with Anesthesia: No Social History Social History Household Members: Significant Other Housing: House Do you presently have visiting nurse or other home services: No Patient Tobacco Use Status: Never used Tobacco e-Cigarette/Vaping Use: Never Used Second Hand Smoke Exposure: No Currently Displaying Signs/Symptoms of Drug Intoxication Withdrawal: No Advance Directives: Yes Advance Directives on File: Yes Advance Directives Date on File: 09/21/21 service: No Current occupational status: unemployed and retired Meds Allergies Allergy/AdvReac Type Severity Reaction Status Date / Time No Known Allergies Allergy Verified 10/25/21 08:15 Active Medications: Current Medications Artificial Tears (Artificial Tears 15 Ml Drops) 1 drop EYE-BOTH Q2H PRN PRN Reason: Dry Eyes Last Admin: 10/31/21 05:38 Dose: 1 drop Aspirin (Aspirin 81 Mg Tab.Chew) 81 mg PO DAILY [facility] Last Admin: 11/01/21 08:49 Dose: 81 mg Atorvastatin Calcium (Atorvastatin Calcium 80 Mg Tablet) 80 mg PO BEDTIME MIKKI Last Admin: 10/31/21 19:23 Dose: 80 mg Doxazosin Mesylate (Doxazosin Mesylate 2 Mg Tablet) 4 mg PO BEDTIME [facility] Last Admin: 10/31/21 19:23 Dose: 4 mg Finasteride (Finasteride 5 Mg Tablet) 5 mg PO DAILY [facility] Last Admin: 11/01/21 08:49 Dose: 5 mg Ampicillin Sodium 500 mg/ (Sodium Chloride) 100 mls @ 200 mls/hr IV Q6H [facility] Last Infusion: 11/01/21 14:43 Dose: Infused Metoprolol Tartrate (Metoprolol Tartrate 12.5 Mg Halftab) 12.5 mg PO BID [facility]; Protocol Last Admin: 11/01/21 08:49 Dose: 12.5 mg Omeprazole (Omeprazole 20 Mg Capsule.Dr) 20 mg PO DAILY@0630 [facility] Last Admin: 11/01/21 05:22 Dose: 20 mg Pharmacy Consult (Consult Rx Perform Med Rec) 1 each MISCELLANE ONCE PRN PRN Reason: Consult order Home Medications Medication Instructions Recorded Confirmed Last Taken Type rosuvastatin 10 mg tablet 1 tab PO BEDTIME 09/07/21 10/26/21 Unknown History apixaban 2.5 mg tablet (Eliquis) 2.5 mg PO BID 10/25/21 10/26/21 Unknown History Exam Exam Date and Time: November 01, 2021 1751 Height,Weight and Vital Signs: Height 6 ft Weight 79.4 kg Last Vital Signs Temp 97.0 F 11/01/21 15:49 Pulse 76 11/01/21 15:49 Resp 16 11/01/21 15:49 BP 135/81 11/01/21 15:49 Pulse Ox 98 11/01/21 15:49 O2 Del Method 11/01/21 15:49 Pertinent Lab Results Pertinent Lab Results: Laboratory Tests 10/25/21 10/25/21 10/25/21 22:12 22:12 22:12 WBC 6.5 RBC 3.26 L Hgb 9.3 L Hct 28.0 L MCV 85.9 MCH 28.5 MCHC 33.2 RDW 15.2 Plt Count 243 D MPV 9.0 L Immature Gran % (Auto) 0.5 H Neut % (Auto) 80.0 H Lymph % (Auto) 9.3 L [place] % (Auto) 9.9 Eos % (Auto) 0.0 Baso % (Auto) 0.3 Lymph # (Auto) 0.6 L [place] # (Auto) 0.6 Eos # (Auto) 0.0 Baso # (Auto) 0.0 Abs Immat Gran (auto) 0.03 Absolute Neuts (auto) 5.2 Absolute Nucleated RBC 0.000 Nucleated RBC % (auto) 0.0 PT 17.2 H INR 1.5 H APTT 31.4 aPTT Heparin Protocol Sodium 132 L Potassium 4.4 Chloride 100 Carbon Dioxide 21 L Anion Gap 15 BUN 27 H Creatinine 1.90 H Estim Creat Clear Calc 28.3 Estimated GFR 34 Random Glucose 180 H D Lactic Acid Calcium 9.8 D Total Bilirubin 1.4 H Direct Bilirubin 0.5 AST 25 D ALT 7 Alkaline Phosphatase 67 D Troponin I High Sens B-Natriuretic Peptide Total Protein 6.1 L Albumin 2.6 L Urine Color Urine Appearance Urine pH Ur Specific [place] Urine Protein Urine Glucose (UA) Urine Ketones Urine Blood Urine Nitrite Ur Leukocyte Esterase Urine RBC Urine WBC Ur Squamous Epith Cells Urine Bacteria COVID-19 (CRISTIAN) COVID-19 [employer] 10/25/21 10/25/21 10/25/21 22:12 22:12 22:12 WBC RBC Hgb Hct MCV MCH MCHC RDW Plt Count MPV Immature Gran % (Auto) Neut % (Auto) Lymph % (Auto) [place] % (Auto) Eos % (Auto) Baso % (Auto) Lymph # (Auto) [place] # (Auto) Eos # (Auto) Baso # (Auto) Abs Immat Gran (auto) Absolute Neuts (auto) Absolute Nucleated RBC Nucleated RBC % (auto) PT INR APTT aPTT Heparin Protocol Sodium Potassium Chloride Carbon Dioxide Anion Gap BUN Creatinine Estim Creat Clear Calc Estimated GFR Random Glucose Lactic Acid 1.5 Calcium Total Bilirubin Direct Bilirubin AST ALT Alkaline Phosphatase Troponin I High Sens 4724.1 H* D B-Natriuretic Peptide 182 H Total Protein Albumin Urine Color Urine Appearance Urine pH Ur Specific [place] Urine Protein Urine Glucose (UA) Urine Ketones Urine Blood Urine Nitrite Ur Leukocyte Esterase Urine RBC Urine WBC Ur Squamous Epith Cells Urine Bacteria COVID-19 (CRISTIAN) Negative COVID-19 [employer] Com See Note 10/25/21 10/26/21 10/26/21 22:44 00:43 05:15 WBC 5.7 RBC 2.72 L Hgb 7.9 L Hct 23.6 L MCV 86.8 MCH 29.0 MCHC 33.5 RDW 15.6 Plt Count 213 MPV 9.2 L Immature Gran % (Auto) 0.4 Neut % (Auto) 78.2 H Lymph % (Auto) 11.9 L [place] % (Auto) 9.1 Eos % (Auto) 0.0 Baso % (Auto) 0.4 Lymph # (Auto) 0.7 L [place] # (Auto) 0.5 Eos # (Auto) 0.0 Baso # (Auto) 0.0 Abs Immat Gran (auto) 0.02 Absolute Neuts (auto) 4.5 Absolute Nucleated RBC 0.000 Nucleated RBC % (auto) 0.0 PT INR APTT aPTT Heparin Protocol Sodium Potassium Chloride Carbon Dioxide Anion Gap BUN Creatinine Estim Creat Clear Calc Estimated GFR Random Glucose Lactic Acid Calcium Total Bilirubin Direct Bilirubin AST ALT Alkaline Phosphatase Troponin I High Sens 5532.5 H* B-Natriuretic Peptide Total Protein Albumin Urine Color BROWN A Urine Appearance CLOUDY Urine pH 6.0 Ur Specific [place] 1.015 Urine Protein 2+ H Urine Glucose (UA) NEG Urine Ketones NEG Urine Blood 3+ H Urine Nitrite NEG Ur Leukocyte Esterase 3+ H Urine RBC 1-4 Urine WBC TNTC H Ur Squamous Epith Cells 1+ Urine Bacteria 3+ COVID-19 (CRISTIAN) COVID-19 [employer] 10/26/21 10/26/21 10/26/21 05:15 05:15 09:20 WBC RBC Hgb Hct MCV MCH MCHC RDW Plt Count MPV Immature Gran % (Auto) Neut % (Auto) Lymph % (Auto) [place] % (Auto) Eos % (Auto) Baso % (Auto) Lymph # (Auto) [place] # (Auto) Eos # (Auto) Baso # (Auto) Abs Immat Gran (auto) Absolute Neuts (auto) Absolute Nucleated RBC Nucleated RBC % (auto) PT INR APTT aPTT Heparin Protocol 63.1 Sodium 136 Potassium 4.0 Chloride 102 Carbon Dioxide 22 Anion Gap 16 BUN 28 H Creatinine 1.87 H Estim Creat Clear Calc 31.4 Estimated GFR 35 Random Glucose 190 H Lactic Acid Calcium 10.1 Total Bilirubin 1.3 H Direct Bilirubin AST 16 ALT < 6 Alkaline Phosphatase 54 Troponin I High Sens 4493.7 H* B-Natriuretic Peptide Total Protein 6.2 L Albumin 3.6 D Urine Color Urine Appearance Urine pH Ur Specific [place] Urine Protein Urine Glucose (UA) Urine Ketones Urine Blood Urine Nitrite Ur Leukocyte Esterase Urine RBC Urine WBC Ur Squamous Epith Cells Urine Bacteria COVID-19 (CRISTIAN) COVID-19 [place] 10/26/21 10/26/21 10/27/21 15:28 21:56 04:32 WBC RBC Hgb Hct MCV MCH MCHC RDW Plt Count MPV Immature Gran % (Auto) Neut % (Auto) Lymph % (Auto) [place] % (Auto) Eos % (Auto) Baso % (Auto) Lymph # (Auto) [place] # (Auto) Eos # (Auto) Baso # (Auto) Abs Immat Gran (auto) Absolute Neuts (auto) Absolute Nucleated RBC Nucleated RBC % (auto) PT INR APTT aPTT Heparin Protocol 50.9 L 81.4 H D 48.3 L D Sodium Potassium Chloride Carbon Dioxide Anion Gap BUN Creatinine Estim Creat Clear Calc Estimated GFR Random Glucose Lactic Acid Calcium Total Bilirubin Direct Bilirubin AST ALT Alkaline Phosphatase Troponin I High Sens B-Natriuretic Peptide Total Protein Albumin Urine Color Urine Appearance Urine pH Ur Specific [place] Urine Protein Urine Glucose (UA) Urine Ketones Urine Blood Urine Nitrite Ur Leukocyte Esterase Urine RBC Urine WBC Ur Squamous Epith Cells Urine Bacteria COVID-19 (CRISTIAN) COVID-19 Clin Com 10/27/21 10/27/21 10/27/21 04:32 04:32 04:32 WBC 5.3 RBC 2.84 L Hgb 8.1 L Hct 24.9 L MCV 87.7 MCH 28.5 MCHC 32.5 RDW 15.6 Plt Count 210 MPV 9.1 L Immature Gran % (Auto) 0.4 Neut % (Auto) 75.7 H Lymph % (Auto) 10.8 L [place] % (Auto) 12.7 H Eos % (Auto) 0.2 Baso % (Auto) 0.2 Lymph # (Auto) 0.6 L [place] # (Auto) 0.7 Eos # (Auto) 0.0 Baso # (Auto) 0.0 Abs Immat Gran (auto) 0.02 Absolute Neuts (auto) 4.0 Absolute Nucleated RBC 0.000 Nucleated RBC % (auto) 0.0 PT INR APTT aPTT Heparin Protocol Sodium 142 Potassium 3.5 Chloride 110 H Carbon Dioxide 22 Anion Gap 14 BUN 25 H Creatinine 1.55 H Estim Creat Clear Calc 33.9 Estimated GFR 43 Random Glucose 99 D Lactic Acid Calcium 10.0 Total Bilirubin 1.0 Direct Bilirubin AST 17 ALT 6 Alkaline Phosphatase 52 Troponin I High Sens 3029.2 H* B-Natriuretic Peptide Total Protein 5.7 L Albumin 3.2 L Urine Color Urine Appearance Urine pH Ur Specific [place] Urine Protein Urine Glucose (UA) Urine Ketones Urine Blood Urine Nitrite Ur Leukocyte Esterase Urine RBC Urine WBC Ur Squamous Epith Cells Urine Bacteria COVID-19 (CRISTIAN) COVID-19 Clin Com 10/27/21 10/27/21 10/28/21 11:26 17:42 05:59 WBC 4.8 RBC 3.03 L Hgb 8.8 L Hct 26.7 L MCV 88.1 MCH 29.0 MCHC 33.0 RDW 15.7 Plt Count 228 MPV 9.1 L Immature Gran % (Auto) Neut % (Auto) Lymph % (Auto) [place] % (Auto) Eos % (Auto) Baso % (Auto) Lymph # (Auto) [place] # (Auto) Eos # (Auto) Baso # (Auto) Abs Immat Gran (auto) Absolute Neuts (auto) Absolute Nucleated RBC 0.000 Nucleated RBC % (auto) 0.0 PT INR APTT aPTT Heparin Protocol 58.9 D 54.3 Sodium Potassium Chloride Carbon Dioxide Anion Gap BUN Creatinine Estim Creat Clear Calc Estimated GFR Random Glucose Lactic Acid Calcium Total Bilirubin Direct Bilirubin AST ALT Alkaline Phosphatase Troponin I High Sens B-Natriuretic Peptide Total Protein Albumin Urine Color Urine Appearance Urine pH Ur Specific [place] Urine Protein Urine Glucose (UA) Urine Ketones Urine Blood Urine Nitrite Ur Leukocyte Esterase Urine RBC Urine WBC Ur Squamous Epith Cells Urine Bacteria COVID-19 (CRISTIAN) COVID-19 Clin Com 10/28/21 10/28/21 10/28/21 05:59 05:59 13:39 WBC RBC Hgb Hct MCV MCH MCHC RDW Plt Count MPV Immature Gran % (Auto) Neut % (Auto) Lymph % (Auto) [place] % (Auto) Eos % (Auto) Baso % (Auto) Lymph # (Auto) [place] # (Auto) Eos # (Auto) Baso # (Auto) Abs Immat Gran (auto) Absolute Neuts (auto) Absolute Nucleated RBC Nucleated RBC % (auto) PT INR APTT aPTT Heparin Protocol 49.6 L 81.4 H D Sodium 142 Potassium 3.5 Chloride 110 H Carbon Dioxide 20 L Anion Gap 16 BUN 23 H Creatinine 1.48 H Estim Creat Clear Calc 35.6 Estimated GFR 46 Random Glucose 107 Lactic Acid Calcium 9.8 Total Bilirubin Direct Bilirubin AST ALT Alkaline Phosphatase Troponin I High Sens B-Natriuretic Peptide Total Protein Albumin Urine Color Urine Appearance Urine pH Ur Specific [place] Urine Protein Urine Glucose (UA) Urine Ketones Urine Blood Urine Nitrite Ur Leukocyte Esterase Urine RBC Urine WBC Ur Squamous Epith Cells Urine Bacteria COVID-19 (CRISTIAN) COVID-19 Clin Com 10/28/21 10/29/21 10/29/21 20:11 02:00 07:50 WBC 3.6 L RBC 3.09 L Hgb 8.8 L Hct 27.5 L MCV 89.0 MCH 28.5 MCHC 32.0 RDW 15.8 Plt Count 234 MPV 9.4 Immature Gran % (Auto) Neut % (Auto) Lymph % (Auto) [place] % (Auto) Eos % (Auto) Baso % (Auto) Lymph # (Auto) [place] # (Auto) Eos # (Auto) Baso # (Auto) Abs Immat Gran (auto) Absolute Neuts (auto) Absolute Nucleated RBC 0.000 Nucleated RBC % (auto) 0.0 PT INR APTT aPTT Heparin Protocol 53.5 D 52.3 L Sodium Potassium Chloride Carbon Dioxide Anion Gap BUN Creatinine Estim Creat Clear Calc Estimated GFR Random Glucose Lactic Acid Calcium Total Bilirubin Direct Bilirubin AST ALT Alkaline Phosphatase Troponin I High Sens B-Natriuretic Peptide Total Protein Albumin Urine Color Urine Appearance Urine pH Ur Specific [place] Urine Protein Urine Glucose (UA) Urine Ketones Urine Blood Urine Nitrite Ur Leukocyte Esterase Urine RBC Urine WBC Ur Squamous Epith Cells Urine Bacteria COVID-19 (CRISTIAN) COVID-19 Clin Com 10/29/21 10/29/21 10/29/21 07:50 07:50 14:41 WBC RBC Hgb Hct MCV MCH MCHC RDW Plt Count MPV Immature Gran % (Auto) Neut % (Auto) Lymph % (Auto) [place] % (Auto) Eos % (Auto) Baso % (Auto) Lymph # (Auto) [place] # (Auto) Eos # (Auto) Baso # (Auto) Abs Immat Gran (auto) Absolute Neuts (auto) Absolute Nucleated RBC Nucleated RBC % (auto) PT INR APTT aPTT Heparin Protocol 102.8 H D 51.0 L D Sodium 144 Potassium 3.3 Chloride 111 H Carbon Dioxide 24 Anion Gap 12 BUN 24 H Creatinine 1.46 H Estim Creat Clear Calc 36.0 Estimated GFR 46 Random Glucose 112 Lactic Acid Calcium 9.4 Total Bilirubin Direct Bilirubin AST ALT Alkaline Phosphatase Troponin I High Sens B-Natriuretic Peptide Total Protein Albumin Urine Color Urine Appearance Urine pH Ur Specific [place] Urine Protein Urine Glucose (UA) Urine Ketones Urine Blood Urine Nitrite Ur Leukocyte Esterase Urine RBC Urine WBC Ur Squamous Epith Cells Urine Bacteria COVID-19 (CRISTIAN) COVID-19 Clin Com 10/29/21 10/30/21 10/30/21 21:41 03:55 03:55 WBC 3.5 L RBC 2.78 L Hgb 8.1 L Hct 25.1 L MCV 90.3 MCH 29.1 MCHC 32.3 RDW 15.9 Plt Count 199 MPV 9.2 L Immature Gran % (Auto) Neut % (Auto) Lymph % (Auto) [place] % (Auto) Eos % (Auto) Baso % (Auto) Lymph # (Auto) [place] # (Auto) Eos # (Auto) Baso # (Auto) Abs Immat Gran (auto) Absolute Neuts (auto) Absolute Nucleated RBC 0.000 Nucleated RBC % (auto) 0.0 PT INR APTT aPTT Heparin Protocol 57.5 Sodium 145 Potassium 3.3 Chloride 112 H Carbon Dioxide 25 Anion Gap 11 L BUN 24 H Creatinine 1.41 H Estim Creat Clear Calc 37.3 Estimated GFR 48 Random Glucose 128 H Lactic Acid Calcium 9.3 Total Bilirubin Direct Bilirubin AST ALT Alkaline Phosphatase Troponin I High Sens B-Natriuretic Peptide Total Protein Albumin Urine Color Urine Appearance Urine pH Ur Specific [place] Urine Protein Urine Glucose (UA) Urine Ketones Urine Blood Urine Nitrite Ur Leukocyte Esterase Urine RBC Urine WBC Ur Squamous Epith Cells Urine Bacteria COVID-19 (CRISTIAN) COVID-19 Clin Com 10/30/21 10/30/21 10/31/21 03:55 10:02 05:18 WBC 2.9 L RBC 2.86 L Hgb 8.4 L Hct 25.6 L MCV 89.5 MCH 29.4 MCHC 32.8 RDW 16.0 Plt Count 210 MPV 9.2 L Immature Gran % (Auto) Neut % (Auto) Lymph % (Auto) [place] % (Auto) Eos % (Auto) Baso % (Auto) Lymph # (Auto) [place] # (Auto) Eos # (Auto) Baso # (Auto) Abs Immat Gran (auto) Absolute Neuts (auto) Absolute Nucleated RBC 0.000 Nucleated RBC % (auto) 0.0 PT INR APTT aPTT Heparin Protocol 56.3 31.3 L D Sodium Potassium Chloride Carbon Dioxide Anion Gap BUN Creatinine Estim Creat Clear Calc Estimated GFR Random Glucose Lactic Acid Calcium Total Bilirubin Direct Bilirubin AST ALT Alkaline Phosphatase Troponin I High Sens B-Natriuretic Peptide Total Protein Albumin Urine Color Urine Appearance Urine pH Ur Specific [place] Urine Protein Urine Glucose (UA) Urine Ketones Urine Blood Urine Nitrite Ur Leukocyte Esterase Urine RBC Urine WBC Ur Squamous Epith Cells Urine Bacteria COVID-19 (CRISTIAN) COVID-19 Clin Com 10/31/21 11/01/21 11/01/21 05:18 05:19 05:19 WBC 3.5 L RBC 2.90 L Hgb 8.4 L Hct 26.2 L MCV 90.3 MCH 29.0 MCHC 32.1 RDW 16.1 H Plt Count 224 MPV 9.6 Immature Gran % (Auto) Neut % (Auto) Lymph % (Auto) [place] % (Auto) Eos % (Auto) Baso % (Auto) Lymph # (Auto) [place] # (Auto) Eos # (Auto) Baso # (Auto) Abs Immat Gran (auto) Absolute Neuts (auto) Absolute Nucleated RBC 0.000 Nucleated RBC % (auto) 0.0 PT INR APTT aPTT Heparin Protocol Sodium 146 H 144 Potassium 3.5 3.5 Chloride 113 H 111 H Carbon Dioxide 26 25 Anion Gap 11 L 12 BUN 20 H 16 Creatinine 1.26 1.24 Estim Creat Clear Calc 41.8 51.2 Estimated GFR 55 56 Random Glucose 114 117 H Lactic Acid Calcium 9.1 9.1 Total Bilirubin Direct Bilirubin AST ALT Alkaline Phosphatase Troponin I High Sens B-Natriuretic Peptide Total Protein Albumin Urine Color Urine Appearance Urine pH Ur Specific [place] Urine Protein Urine Glucose (UA) Urine Ketones Urine Blood Urine Nitrite Ur Leukocyte Esterase Urine RBC Urine WBC Ur Squamous Epith Cells Urine Bacteria COVID-19 (CRISTIAN) COVID-19 Clin Com Airway Mallampati Class: II TM Dist: >3cm Heart: RRR Lungs: CTA Assessment and Plan Assessment Anesthesia Assessment: Anesthesia Plan Discussed and Chart Reviewed Final Anesthetic Review Family History of Problems with Anesthesia: No History of Problems with Anesthesia: No NPO: Yes ASA Class: III Final Preanesthetic Review: No Changes in Pt Med Stat, Meds/Allgs Chart Reviewed, Consent Obtained/Reviewed and Anes Risks/Benef Reviewed Patient Risk: Intermediate Procedure Risk: Low Anesthetic Plan Anesthetic Plan: GA Disposition: Standard PACU
--- NOTE | 2021-11-01 18:16 | MHC.SHP ---
Pre-Procedural Eval Section A Date of Service: 11/01/21 The patient is an INPATIENT: Yes Changes since office visit: No Cold of Flu in the past 2 weeks, No New Medical Problems, No Changes in Medication and No Patient answered all questions The History & Physical has been completed within 30 days and I have reviewed it.: Yes Section B Chief Complaint: ? Sepsis Details of Present Illness: Cystoscopy and bladder stone and stent removal Allergies: Allergies Allergy/AdvReac Type Severity Reaction Status Date / Time No Known Allergies Allergy Verified 10/25/21 08:15 Review of Systems Sugical H&P ROS: Negative: Constitution, Cardiovascular, Respiratory, Neurological, Psychiatric, Hem-Onc, Allergic/Immunologic, Gastrointestinal, Genitourinary, Musculoskeletal, Integumentary, Endocrine and Eyes/Ears/Nose/Throat Exam Surgical H&P Exam: Normal: HEENT, Normal: Heart, Normal: Lungs, Normal: Extremities, Normal: Abdomen, Normal: Skin and Normal: Neurological Plan Diagnosis/Plan: Unchanged I have reviewed the history and physical and performed a pertinent physical examination on my patient. No changes have occurred unless specified.
--- NOTE | 2021-11-01 19:06 | W.PM.OPN ---
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 1. Cystoscopy 2. left stent removal 3. bladder stone removal 4. Suprapubic tube placement Surgeon: Dr Jordan Meeks Anesthesia:?Sedation plus local Indications for procedure: admit to hospital with cardiac issues and urinary infection with retention. Imaging showed stent that had been placed previously for distal ureteric stones plus stones that are now within the bladder. Procedure: After informed consent was verified the patient was brought to the operating room and placed in a supine position.? Anesthesia was administered per protocol. The patient was placed in a modified dorsal lithotomy position and prepped and draped in a sterile fashion. A safety pause was performed confirming patient identity, procedure and antibiotics. The penis was examined which showed loss of glandular tissue on the left side, fibrin S material in the sulcus, loss of urethral meatus and apparent loss of the left corpora cavernosum. The indwelling Hernandez catheter was removed. A 22 Syriac cystoscope was inserted per urethra. Bladder was examined in its entirety. The stent there was emerging from the left side was grasped and removed. The cystoscope was replaced. Three small bladder stones were found. These were flushed from the bladder through the cystoscope. The bladder itself had significant trabeculation and thickening consistent with results seen on the CT scan. Air bubble was located at the dome of the bladder. A finder needle was inserted 2 fingerbreaths above the symphysis pubis on the abdomen into the bladder.? The needle was visualized in the bladder via cystoscopy. Local anesthetic was infiltrated subcutaneously around the needle introduction site. A small, 1cm horizontal incision was made.? A trocar introducer was advanced through the abdominal wall into the bladder under visualization. The obturator was removed and a 16 Fr hernandez catheter placed. 7cc was used to inflate the balloon. The external portion of the trocar was removed. Dressing was placed, the bladder was emptied, and a drainage bag was attached. The patient tolerated the procedure and was transferred in stable condition to the recovery area. Suprapubic tube will be changed in 1 month with a follow-up office visit. Pathology bladder stones
[2021-11-01] MEDS: Atorvastatin Calcium 80 MG TABLET PO (21:06)
--- NOTE | 2021-11-01 23:49 | PM.EVENT ---
Event Note Date of Service: 11/01/21 Event Note: pt had a 4 s pause. sleeping, symptomatic. will obtain labs and ekg
[2021-11-02 00:25] LABS: Anion Gap 12 (12-20); Blood Urea Nitrogen 17 mg/dL (9-16); Calcium 9.2 mg/dL (8.4-10.2); Carbon Dioxide 25 mmol/L (22-29); Chloride 110 mmol/L (96-108); Creatinine Clr Calc Pharmacy 52.9; Estimated Glomerular Filt Rate 58; Glucose Random 109 mg/dL (60-115); Magnesium 1.9 mg/dL (1.6-2.6); Potassium 3.6 mmol/L (3.3-5.1); Sodium 143 mmol/L (135-145)
[2021-11-02] MEDS: Magnesium Sulfate/H2O 2 GM/50 ML PIGGYBACK IV (01:40)
[2021-11-02] MEDS: Potassium Chloride Packet 20 MEQ PACKET 40 MEQ PO (01:41)
--- NOTE | 2021-11-02 02:58 | PC.NURSE ---
RECEIVED CALL FROM [facility] [facility] PATIENT ON CARDIAC MONITORING, AND SHE STATED A 4 SECOND PAUSE AT 2332. PT AWAKENED, DENIED ALL PAIN, NO CP OR PRESSURE, VITALS, 112/[id number], AND 94% ROOM AIR. HOB IS UP, LUNG FISHER DIM SEQ STOCKINGS ON. RECEIVED 2NC CALL FOR 3.2 SECOND PAUSE WITH PVC S, AND THIRD CALL 3.2 PAUSE AT 0110. HOSPITALIST ALERTED AFTER FIRST EPISODE AND SHE ORDERED AN EKG, LAB WORK,AND CAME TO PTS BEDSIDE AND READ HIS EKG. SECOND EPISODE AND PT STILL REMAINS WITH NO DISTRESS, PACER PADS PLACED ON PT AND ADDITIONAL LAB WORK WAS DRAWN. NEW ORDERS FOR POTASSIUM PO AND IV MAGNESIUM AND BOTH ADMINISTERED. MAGNESIUM WILL DELAY IVABX DOSE FOR 0200. NURSING SENIOR MICROSTRATEGY DEVELOPER UPDATED AND TROP RESULTS OF 93.0 SENT TO HOSPITALIST. WILL CONTINUE TO MONITOR CLOSELY.
[2021-11-02 03:48] VITALS: BP 118/67; PULSE 79; RESP 18; TEMP 36.8; O2SAT 94
--- NOTE | 2021-11-02 04:56 | PC.NURSE ---
[facility] [place] A 6.3 SECOND PAUSE AT THIS TIME OF 0450. CHECKED ON PT, AWAKE, ALERT, DENIES PAIN OR DISCOMFORTS. MD AND NURSING HOTEL SERVICE SUPERVISOR TO UNIT AND SAW PATIENT. CONT TO MONITOR AND TELEPAK CHANGED PER RECOMMENDATION OF HOTEL SERVICE SUPERVISOR. HR 79
[2021-11-02 05:52] LABS: Hematocrit 27.7 % (42.0-52.0); Hemoglobin 8.8 g/dl (14.0-18.0); Mean Corpuscular HGB Conc 31.8 g/dl (31.0-36.0); Mean Corpuscular Hemoglobin 28.6 pg (27.0-33.0); Mean Corpuscular Volume 89.9 fL (80.0-98.0); Mean Platelet Volume 9.1 fL (9.4-12.4); Platelet Count 210 X10*3/uL (160-400); Red Blood Count 3.08 X10*6/uL (4.60-5.80); Red Cell Distribution Width 16.3 % (11.0-16.0); White Blood Count 3.3 X10*3/uL (4.8-10.8)
[2021-11-02 05:56] VITALS: BMI 23.6
[2021-11-02 06:12] LABS: Anion Gap 11 (12-20); Blood Urea Nitrogen 16 mg/dL (9-16); Calcium 9.3 mg/dL (8.4-10.2); Carbon Dioxide 25 mmol/L (22-29); Chloride 111 mmol/L (96-108); Creatinine Clr Calc Pharmacy 49.2; Estimated Glomerular Filt Rate 53; Glucose Random 106 mg/dL (60-115); Potassium 4.3 mmol/L (3.3-5.1); Sodium 143 mmol/L (135-145)
--- NOTE | 2021-11-02 06:25 | PC.NURSE ---
PATIENT RESTING QUIETLY AT THIS TIME 0625, HOB UP, NO S/SX DISTRESS, RR 18, SP TUBE DRAINED TEA COLORED URINE, PT NOT AWAKENED FOR AM PRILOSEC HE WAS UP MOST OF THE NIGHT FOR CARDIAC CHECKS, SEE PREVIOUS NOTES.
[2021-11-02 08:00] VITALS: BP 135/64; PULSE 76; RESP 16; TEMP 36.3; O2SAT 96
[2021-11-02] MEDS: Aspirin 81 MG TAB.CHEW PO (08:34)
[2021-11-02] MEDS: Omeprazole 20 MG CAPSULE.DR PO (08:34)
--- NOTE | 2021-11-02 08:55 | P.POSTANES_ITS ---
Post Anesthesia Evaluation Post Anesthesia Evaluation Vital Signs: Vital Signs Temp Pulse Resp BP Pulse Ox O2 Del Method 11/02/21 08:00 97.3 F 76 16 135/64 96 Room Air 11/02/21 03:48 98.2 F 79 18 118/67 94 Room Air 11/01/21 23:45 98.7 F 75 16 112/70 94 Room Air Anesthesia: Monitored Mental Status: Awake (mentation similar like pre-op , alert but confused . ) Pain Control: Satisfactory Nausea/Vomiting: None Hydration: Adequate Anesthesia-Related Issues: No Anes. Related Issues Comments: Patient had a 4s pause overnight , being worked up and managed by the hospitalist . Cardiology had been following for NSTEMI . Discussed with Hospitalist and New Car Inspector
[2021-11-02 11:22] VITALS: BP 104/55; PULSE 83; RESP 17; TEMP 36.4; O2SAT 93
--- NOTE | 2021-11-02 14:41 | P.PNCA_ITS ---
Subjective Subjective Date of Service: 11/02/21 Interval history: Seen examined at bedside. Patient is sleeping. Discussed with his girlfriend about transfer to [facility] for cardiac catheterization. Physical Exam Vital Signs: Last Vital Signs Temp 97.5 F 11/02/21 11:22 Pulse 83 11/02/21 11:22 Resp 17 11/02/21 11:22 BP 104/55 L 11/02/21 11:22 Pulse Ox 93 11/02/21 11:22 O2 Del Method 11/02/21 11:22 O2 Flow Rate 2 11/01/21 19:30 BMI result Body Mass Index 23.6 GENERAL APPEARANCE: in no acute distress, right IJ triple-lumen catheter.. NECK: no carotid bruit, no obvious jugular venous distention. SKIN: no suspicious lesions, warm and dry. HEART: no murmurs, regular rate and rhythm. LUNGS: clear to auscultation bilaterally. ABDOMEN: soft, nontender. EXTREMITIES: no edema. PERIPHERAL PULSES: equal. Objective Labs and Meds Result diagrams: 11/02/21 05:26 11/02/21 05:26 Lab results: Laboratory Results - last 24 hr 11/02/21 11/02/21 11/02/21 00:03 01:29 05:26 WBC 3.3 L RBC 3.08 L Hgb 8.8 L Hct 27.7 L MCV 89.9 MCH 28.6 MCHC 31.8 RDW 16.3 H Plt Count 210 MPV 9.1 L Absolute Nucleated RBC 0.000 Nucleated RBC % (auto) 0.0 Sodium 143 Potassium 3.6 Chloride 110 H Carbon Dioxide 25 Anion Gap 12 BUN 17 H Creatinine 1.20 Estim Creat Clear Calc 52.9 Estimated GFR 58 Random Glucose 109 Calcium 9.2 Magnesium 1.9 Troponin I High Sens 93.0 H D 11/02/21 05:26 WBC RBC Hgb Hct MCV MCH MCHC RDW Plt Count MPV Absolute Nucleated RBC Nucleated RBC % (auto) Sodium 143 Potassium 4.3 Chloride 111 H Carbon Dioxide 25 Anion Gap 11 L BUN 16 Creatinine 1.29 Estim Creat Clear Calc 49.2 Estimated GFR 53 Random Glucose 106 Calcium 9.3 Magnesium Troponin I High Sens Progress Note: A&P Assessment and plan (1) NSTEMI (non-ST elevated myocardial infarction): Status: Acute (2) Cardiomyopathy: Status: Acute Plan 81-year-old gentleman who presented with urosepsis and ruled in for NSTEMI in the same time. Echocardiography has shown ejection fraction of 30-35% with changes consistent with multivessel disease versus takotsubo cardiomyopathy. He had cystoscopy yesterday. He has suprapubic catheter. Overall stable from the neurological point of view. No hematuria. Our plan was to transfer him for cardiac catheterization and we will transfer to [facility] for potential cardiac catheterization tomorrow. Thank you for allowing me to participate in the care of your patient. Please feel free to contact me if you have any questions. Time Spent With Patient Time: Total time spent is greater than 50% in coordination of care (as documented) at patient's floor/unit and/or counseling patient: Progress Note: Quality Stroke Does the patient have a stroke diagnosis?: No Procedures Date of Service Date of Service: 11/02/21
--- NOTE | 2021-11-02 14:50 | PM.DS ---
DS: Providers Provider Date of Service: 11/02/21 Date of admission: 10/26/21 00:15 Primary care physician: Unknown Physician Consults: 10/26/21 07:54 Consult to Cardiology Routine Consulting Provider: Jose Guadalupe Smith Reason for consultation: SEMI Has provider been notified: Yes 10/26/21 17:34 Consult to Urology Routine Consulting Provider: Jordan Meeks Reason for consultation: hematuria Has provider been notified: Yes DS: Diagnosis Discharge Diagnosis (1) NSTEMI (non-ST elevated myocardial infarction): Status: Acute (2) Cardiomyopathy: Status: Acute (3) Bladder stones: Status: Acute (4) Hematuria: Status: Acute (5) Acute renal failure superimposed on stage 2 chronic kidney disease: Status: Acute (6) Altered mental status: Status: Acute (7) Septic shock: Status: Acute (8) Urinary retention: Status: Acute (9) BPH w urinary obs/LUTS: Status: Acute (10) Urinary tract infection: Status: Acute DS: Summary Hospital Course Hospital Course: Admission note HPI 81-year-old male with underlying history of recurrent UTIs, pyelonephritis, hyperlipidemia, [place] , DVT and PE in year 1999, with another PE in 2005, pneumonia, mild restrictive pulmonary disease based on PFTs study from back then, hypertension; constipation, diverticulosis he had been on long-term anticoagulation therapy at the time; on 09/04 the patient had arrived confused, hematuria was noted under his underpants; the patient's blood pressure was 74/44, heart rate 89, respirations 28, O2 90% on 4 L nasal cannula and temperature 97.8 degrees.? At the time patient was admitted to the ICU with septic shock in the setting of ureteric stone, he was treated with vasopressors, antibiotics and IV fluids, he underwent a cistoscopy with removal of the infected stone and placement of a stent.? Patient had been seen by infectious disease and treated for Proteus group G strep and Morganella for a total of 3 weeks with Levaquin.? 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 At the time he had acute kidney injury which had resolved and the patient had gone to a rehab facility. Even though he did have EKG changes and abnormal troponin at the time, the cardiology evaluation was deferred for outpatient evaluation.? His medications for blood pressure had been adjusted. Hospital course The patient was admitted primarily to the ICU for persistent hypotension believed to be secondary to septic shock. Responded well to IV fluid, IV antibiotics and short-term pressor usage. Transferred to the medical floor the next morning. UTI believe to be associated with Barry catheter and having multiple stones on bladder imaging. Developed hematuria while on heparin drip. Evaluated by Urology as urine culture grew Enterococcus faecalis? and Staph species. Antibiotic was changed to ampicillin as he finished 5 days office at this point. Urologist did cystoscopy with stones removal from the bladder and creating a suprapubic catheters removing the chronic Barry. The suprapubic catheter should be changed on monthly basis. Hematuria resolved. NSTEMI Echocardiogram suggestive of underlying CAD or stress-induced cardiomyopathy.? Repeated the echo showing no changes.? Wall motion abnormalities consistent mid multivessel disease versus takotsubo CMP. Treated with Heparin drip, discontinued after 48 hours On aspirin, statin and beta-joey cardiology following, transfer to [facility] for angiogram Billy I on CKD stage 2 Presented at time of admission secondary to septic shock. Improving back to baseline Acute toxic-metabolic encephalopathy Hands baseline dementia according to the family. Worsened at time of admission secondary to sepsis. Patient did not see physician several years prior to recent admission in August. Mental status improved back to his baseline according to his .?recurrent orientation, increase physical activity. Leukopenia Improving, Seems to be related to infection Monitor CBC Hx of corpora cavernosa clot Diagnosed on previous admission on September 14. Doppler ultrasound showed possible clot within left corpora cavernosa. Urology recommended Eliquis. Has been taking Eliquis 2.5 mg b.i.d.. On hold during this admission for presumed angiogram. Plan to finish total of 3 months per Urology. Time Spent with Patient Time attestation: Total time spent providing and/or coordinating discharge services: Discharge coordination time: Greater than 30 minutes Quality: Safe Use of Opioids Does Pt have an Active Cancer Diagnosis on the Problem List?: No Quality: Stroke Does the patient have a stroke diagnosis?: No Physical Exam Vital Signs: Vital Signs: Last Vital Signs Temp 97.5 F 11/02/21 11:22 Pulse 83 11/02/21 11:22 Resp 17 11/02/21 11:22 BP 104/55 L 11/02/21 11:22 Pulse Ox 93 11/02/21 11:22 O2 Del Method 11/02/21 11:22 O2 Flow Rate 2 11/01/21 19:30 BMI result Body Mass Index 23.6 Const: Other: Constitutional : Alert, interactive but slow, not in distress Neck : Normal inspection, Supple Cardiovascular : RRR, no JVP, no lower extremity edema Respiratory : fair bilateral air entry, no crackles, wheezes or rhonchi Gastrointestinal: soft, lax, Normal bowel sounds, Non tender Skin : Warm, Dry, nasal lesion Urology: Hematuria resolving, suprapubic catheter in place. Neurological : Alert & disoriented and still mildly confused, No focal deficit DS: Data Data Completed and Pending Completed studies during hospitalization [Text1]: Procedures Dilation of Left Ureter with Intraluminal Device, Via Natural or Artificial Opening Endoscopic (09/07/21) Drainage of Left Inguinal Lymphatic, Percutaneous Approach, Diagnostic (09/07/21) Excision of Penis, Open Approach, Diagnostic (09/07/21) Extirpation of Matter from Bladder, Via Natural or Artificial Opening Endoscopic (09/07/21) Fluoroscopy of Right Kidney, Ureter and Bladder (09/07/21) Insertion of Infusion Device into Superior Vena Cava, Percutaneous Approach (09/07/21) Introduction of Vasopressor into Peripheral Vein, Percutaneous Approach (09/07/21) Release Penis, Open Approach (09/07/21) Ultrasonography of Superior Vena Cava, Guidance (09/07/21) Pending studies at discharge: Pending at discharge 11/01/21 19:19 Surgical [PTH] Routine Labs on day of discharge: Laboratory Results - last 24 hr 11/02/21 11/02/21 11/02/21 00:03 01:29 05:26 WBC 3.3 L RBC 3.08 L Hgb 8.8 L Hct 27.7 L MCV 89.9 MCH 28.6 MCHC 31.8 RDW 16.3 H Plt Count 210 MPV 9.1 L Absolute Nucleated RBC 0.000 Nucleated RBC % (auto) 0.0 Sodium 143 Potassium 3.6 Chloride 110 H Carbon Dioxide 25 Anion Gap 12 BUN 17 H Creatinine 1.20 Estim Creat Clear Calc 52.9 Estimated GFR 58 Random Glucose 109 Calcium 9.2 Magnesium 1.9 Troponin I High Sens 93.0 H D 11/02/21 05:26 WBC RBC Hgb Hct MCV MCH MCHC RDW Plt Count MPV Absolute Nucleated RBC Nucleated RBC % (auto) Sodium 143 Potassium 4.3 Chloride 111 H Carbon Dioxide 25 Anion Gap 11 L BUN 16 Creatinine 1.29 Estim Creat Clear Calc 49.2 Estimated GFR 53 Random Glucose 106 Calcium 9.3 Magnesium Troponin I High Sens Imaging CT scan - abdomen: Radiologist's impression: ITS Impressions Abdomen/Pelvis CT 10/25/21 23:52 IMPRESSION: Prominent bladder wall thickening with adjacent inflammation, concerning for infectious process. Numerous bladder calculi. Left ureteral stent in place. Mild left hydroureteronephrosis noted. Enlarged left pelvic lymph nodes, similar to mildly increased in size when compared to prior. Cholelithiasis. Fleischner guidelines were followed. Chest X-Ray 10/26/21 00:45 IMPRESSION: Right internal jugular central venous catheter terminates near the cavoatrial junction. No pneumothorax. Discharge Plan Discharge Patient Disposition: er [facility] Discharge Diagnosis: Septic shock secondary to UTI NSTEMI Hematuria, urinary retention Toxic metabolic encephalopathy Referrals: Physician,Unknown J [Primary Care Provider] - 1 Week Discharge Medications: New atorvastatin 80 mg Tablet 80 mg PO BEDTIME Qty: 1 0RF aspirin 81 mg Tablet,Chewable 81 mg PO DAILY Qty: 1 0RF Continued omeprazole 20 mg Capsule,Delayed Release(Dr/Ec) 20 mg PO DAILY@0630 30 Days Qty: 30 0RF finasteride 5 mg tablet 5 mg PO DAILY 90 Days Qty: 90 1RF terazosin 5 mg capsule 5 mg PO BEDTIME 90 Days Qty: 90 1RF Changed metoprolol tartrate 25 mg tablet 12.5 mg PO BID Qty: 60 0RF Held Eliquis 2.5 mg tablet 2.5 mg PO BID Hold Instructions: Once medically stable Discontinued rosuvastatin 10 mg tablet 1 tab PO BEDTIME Discharge Orders: Discharge Order (Routine); Ordered 11/02/21 Ordered By: Shazia Perea Diet: Advance to usual diet Activity on Discharge: As tolerated Stand Alone Forms: Patient Portal Discharge page Care Plan Goals: Read below Health Concerns: Read below Plan of Treatment: Read below Assessment: You were admitted to the hospital for evaluation of altered mentation and low blood pressure. Found to be in septic shock admitted to the ICU for IV antibiotics and fluids with good response as your urine culture grew Enterococcus bacteria treated with IV antibiotics. Noticed to have acute kidney injury which was treated with IV fluid with good response as your kidney function improved back to baseline. Evaluated by urologist for blood in the urine and urine retention. Placed suprapubic catheter . Noticed to have EKG abnormality with elevated cardiac enzymes. Evaluated by Cardiology team who recommended treatment for heart attack with heparin. Plan to transfer to [facility] to continue workup with angiogram.
--- NOTE | 2021-11-02 14:57 | MHC.CM.PN ---
Per MD-[place] been [place] [facility] [place]
[2021-11-02 15:20] VITALS: BP 100/68; PULSE 78; RESP 18; TEMP 37; O2SAT 96
--- NOTE | 2021-11-02 16:33 | PC.NURSE ---
report given to RN Medicine at [facility]
== END 2021-11-02 17:19 | disposition short-term general hospital (02) | DRG 698 ==
LOC: HO.ED 10-26 00:14 → HO.ICU 10-26 00:25 → HO.S3 10-27 20:40
PROVIDERS: Internal Medicine; Internal Medicine Cardiovascular Disease; Urology; Admitting Provider Physician Assistant Medical; Emergency Provider Emergency Medicine; PCP Internal Medicine; Visit Provider Student in an Organized Health Care Education/Training Program
PROC: 0TCB8ZZ Extirpation of Matter from Bladder, Via Natural or Artificial Opening Endoscopic (ICD-10-PCS; CPT 52352; principal; 2021-11-01 16:30)
DX: T83.511A Infection and inflammatory reaction due to indwelling urethral catheter, initial encounter (principal); A41.9 Sepsis, unspecified organism; I21.4 Non-ST elevation (NSTEMI) myocardial infarction; R65.21 Severe sepsis with septic shock; G92.8 Other toxic encephalopathy; N13.6 Pyonephrosis; F05 Delirium due to known physiological condition; N17.9 Acute kidney failure, unspecified; I51.81 Takotsubo syndrome; E78.5 Hyperlipidemia, unspecified; N18.2 Chronic kidney disease, stage 2 (mild); Z20.822 Contact with and (suspected) exposure to COVID-19; F03.90 Unspecified dementia, unspecified severity, without behavioral disturbance, psychotic disturbance, mood disturbance, and anxiety; I95.9 Hypotension, unspecified; D63.1 Anemia in chronic kidney disease; N40.1 Benign prostatic hyperplasia with lower urinary tract symptoms; B95.2 Enterococcus as the cause of diseases classified elsewhere; R31.9 Hematuria, unspecified; N21.0 Calculus in bladder; D72.819 Decreased white blood cell count, unspecified; I49.5 Sick sinus syndrome; I25.10 Atherosclerotic heart disease of native coronary artery without angina pectoris; R33.8 Other retention of urine; I25.2 Old myocardial infarction; E88.09 Other disorders of plasma-protein metabolism, not elsewhere classified; Z87.440 Personal history of urinary (tract) infections; Z86.711 Personal history of pulmonary embolism; Z86.718 Personal history of other venous thrombosis and embolism; Z79.01 Long term (current) use of anticoagulants; Z79.82 Long term (current) use of aspirin; Z79.899 Other long term (current) drug therapy
CPT/HCPCS: 36415; 71045; 74176; 80048; 80053; 80076; 81001; 83605; 83735; 83880; 84484; 85025; 85027; 85610; 85730; 87040; 87086; 87088; 87147; 87186; 87635; 88300; 93005; 93306; 93308; 99285; C1758; J0290; J0696; J1956; J2185; J2370; J2543; J2795; J3010; J3475; P9047; Q3014; Q9957

== ENCOUNTER 2021-12-12 14:28 | Inpatient (IN) | payer MEDICARE, MEDICAID, SELFPAY ==
[2021-12-12] VITALS (12 sets, daily range): BP systolic 79–119; BP diastolic 40–65; PULSE 69–104; RESP 16–22; TEMP 36.6–38.6; O2SAT 93–97; BMI 21.4
--- NOTE | ~2021-12-12 | XR_ITS ---
EXAMINATION: XR CHEST CLINICAL INFORMATION: Question CHF COMPARISON: Previous chest x-ray from earlier the same day TECHNIQUE: Frontal view of the chest was obtained. FINDINGS: The cardiac and mediastinal contours are stable. There is new airspace disease in the right midlung. Differential would include pneumonia and asymmetric distribution of pulmonary edema. The left lung is clear. There is no pleural effusion or pneumothorax. XR/XR chest 1V IMPRESSION: New airspace disease in the right midlung. Differential would include pneumonia and asymmetric distribution of pulmonary edema.
--- NOTE | ~2021-12-12 | XR_ITS ---
EXAMINATION: XR CHEST CLINICAL INFORMATION: Fever COMPARISON: 10/26/2021 TECHNIQUE: Frontal view of the chest was obtained. FINDINGS: The lungs are well expanded. There is no focal consolidation, edema, or effusion. Mild bronchial wall thickening. No pneumothorax. The cardiomediastinal silhouette is within normal limits. No acute osseous abnormality. XR/XR chest 1V IMPRESSION: No consolidation. Bronchial wall thickening can be seen with a small airways process such as asthma or atypical/viral infection. Alternatively this could be chronic.
--- NOTE | ~2021-12-12 | CT_ITS ---
EXAMINATION: CT ABDOMEN AND PELVIS WITHOUT CONTRAST CLINICAL INFORMATION: Elevated creatinine. Rule out hydronephrosis. COMPARISON: None TECHNIQUE: Multidetector volumetric imaging was performed from the superior aspect of the liver through the pubic symphysis. Sagittal and coronal reformatted images were obtained on the technologist's workstation. This CT examination was performed using dose optimization techniques as appropriate, variously including the following: *Automated exposure control *Adjustment of mA and/or kV according to patient size (this includes techniques or standardized protocols for targeted exams where dose is matched to indication/reason for exam; i.e. extremities or head) *Use of iterative reconstruction technique DLP: 578 mGy-cm FINDINGS: LUNG BASES: Not well evaluated due to motion artifact. The heart is enlarged. LIVER, GALLBLADDER, AND BILIARY TREE: The liver is normal in size, shape, and attenuation. No focal hepatic lesion or biliary ductal dilatation is present. There are gallstones in the gallbladder. PANCREAS: Unremarkable. SPLEEN: Upper normal in size measuring 13 cm. ADRENAL GLANDS: Unremarkable. KIDNEYS AND URETERS: There is mild left hydronephrosis and ureteral dilatation. The left internal ureteral stent seen on October 2021 exam is no longer seen. There is no right hydronephrosis. BLADDER: There is a new suprapubic tube. The Barry balloon of the suprapubic tube is in the penile urethra and the suprapubic tube should be repositioned. There is a small amount of urine in the bladder. Bladder wall is diffusely thickened. There is stranding of the perivesicular fat. There is a bladder stone measuring 7 cm. GASTROINTESTINAL TRACT: Diverticulosis of the colon. The small and large bowel are otherwise unremarkable. The appendix is unremarkable. ABDOMINAL WALL: Small umbilical and left inguinal hernias containing fat. LYMPH NODES: Small retroperitoneal lymph nodes in the abdomen. There are enlarged retroperitoneal lymph nodes in the pelvis, left greater than right and left inguinal lymph nodes. These appear similar to previous exam. Largest lymph nodes are a left external iliac lymph node measuring 1.2 x 2.5 cm axial image 73 and left inguinal lymph node measuring 1.3 x 3 cm. VASCULAR: Unremarkable. PELVIC VISCERA: The prostate gland is enlarged. OSSEOUS STRUCTURES: Degenerative changes of the spine. Probable L3 vertebral body hemangioma. CT/CT abdomen pelvis wo IV con IMPRESSION: New suprapubic tube. The Barry portion of the suprapubic tube is inflated in the penile urethra and should be repositioned. Diffuse bladder wall thickening and infiltration of the perivesicular fat. Infectious inflammatory and neoplastic process should be considered. 7 mm bladder stone. Mild left hydronephrosis and ureteral dilatation. The previously identified left internal ureteral stent October 2021 exam is no longer seen. Enlarged prostate gland. Diverticulosis of the colon. Enlarged retroperitoneal and left inguinal lymph nodes similar to previous exam. Gallstones. Findings will be communicated by the [place] work flow entry level management. Fleischner guidelines were followed.
--- NOTE | 2021-12-12 15:38 | ECG_ITS ---
Test Reason : Catheter Problems Blood Pressure : / mmHG Vent. Rate : 080 BPM Atrial Rate : 080 BPM P-R Int : 150 ms QRS Dur : 116 ms QT Int : 402 ms P-R-T Axes : 061 -49 127 degrees QTc Int : 463 ms Normal sinus rhythm Left anterior fascicular block Minimal voltage criteria for LVH, may be normal variant ( Mathews product ) T wave abnormality, consider lateral ischemia Prolonged QT Abnormal ECG When compared with ECG of 02-NOV-2021 00:12, T wave inversion no longer evident in Anterior leads T wave inversion less evident in Lateral leads Referred By: Suri Parbhakar Electronically Signed By:EDY TRUONG
[2021-12-12 15:47] LABS: Appearance Urine Turbid; Color Urine Yellow; Glucose Urine UA Negative (Negative); Leukocyte Esterase Urine Large (3+) (Negative); Nitrite Urine Negative (Negative); Specific Gravity - Urine 1.015 (1.005-1.025); UMIC TRIGGER UACC YES; Urine Blood Moderate (2+) (Negative); Urine Ketones Negative (Negative); Urine Protein 100 (2+) mg/dL (Neg-Trace)
[2021-12-12 15:53] LABS: MANUAL DIFF FLAG NO
[2021-12-12] MEDS: 0.9 % Sodium Chloride 2,500 ML 999 ML IVCONT (15:54)
[2021-12-12] MEDS: cefTRIAXone sodium 1 GM in 0.9 % Sodium Chloride 50 ML IV (15:55)
[2021-12-12 15:56] LABS: Basophils Percent Auto 0.2 % (0-2); Eosinophils Percent Auto 0.1 % (0-4); Hematocrit 27.5 % (42.0-52.0); Hemoglobin 8.8 g/dl (14.0-18.0); Imm Gran Abs Auto 0.06 X10*3/uL (0.00-0.03); Imm Gran Pct Auto 0.5 % (0.0-0.4); Lymphocytes Absolute Auto 0.5 X10*3/uL (1.2-4.9); Lymphocytes Percent Auto 3.8 % (20-40); Mean Corpuscular Hemoglobin 28.7 pg (27.0-33.0); Mean Corpuscular Volume 89.6 fL (80.0-98.0); Mean Platelet Volume 9.4 fL (9.4-12.4); Monocytes Absolute Auto 1.1 X10*3/uL (0.1-1.2); Monocytes Percent Auto 8.7 % (2-11); Neutrophils Absolute Auto 10.9 x10*3/uL (2.0-8.3); Neutrophils Percent Auto 86.7 % (45-73); Platelet Count 224 X10*3/uL (160-400); Red Blood Count 3.07 X10*6/uL (4.60-5.80); Red Cell Distribution Width 15.7 % (11.0-16.0); White Blood Count 12.5 X10*3/uL (4.8-10.8)
[2021-12-12] MEDS: Acetaminophen 325 MG TABLET 975 MG PO (15:56)
[2021-12-12 16:03] LABS: INTERNATIONAL NORM RATIO 1.4 (0.9-1.1); Prothrombin Time 16.4 SEC (10.0-13.1)
[2021-12-12 16:05] LABS: Bacteria Urine 4+ (None Seen); RBC Urine 0-2 /HPF (0-2); Squamous Epithelial Cell Urine 0-2 /HPF (0-2); UACC Culture Trigger YES; WBC Clumps Urine Present; WBC Urine >50 /HPF (0-5)
[2021-12-12 16:09] LABS: Lactic Acid 1.4 mmol/L (0.5-2.0)
[2021-12-12 16:16] LABS: Troponin-I High Sensitivity 29.7 ng/L (<3.5-35.0)
[2021-12-12 16:26] LABS: Alanine Aminotransferase 11 U/L (0-40); Albumin Level 3.2 g/dL (3.5-5.0); Alkaline Phosphatase 77 U/L (39-117); Anion Gap 21 (12-20); Aspartate Amino Transferase 18 U/L (5-37); Bilirubin Direct 0.7 mg/dL (0.0-0.5); Bilirubin Total 1.5 mg/dL (0.0-1.0); Blood Urea Nitrogen 86 mg/dL (9-16); Calcium 8.8 mg/dL (8.4-10.2); Carbon Dioxide 20 mmol/L (22-29); Chloride 101 mmol/L (96-108); Creatinine Clr Calc Pharmacy 13.4; Estimated Glomerular Filt Rate 13; Glucose Random 170 mg/dL (60-115); Lipase 24 U/L (8-78); Magnesium 2.2 mg/dL (1.6-2.6); Potassium 4.6 mmol/L (3.3-5.1); Sodium 137 mmol/L (135-145); Total Protein 7.1 g/dL (6.5-8.0)
[2021-12-12 16:51] LABS: COVID-19 Test Negative (Negative)
--- NOTE | 2021-12-12 16:52 | PHA.MEDREC ---
Pharmacy Consult ? Medication Reconciliation Pharmacy has completed the medication reconciliation. Med list obtained from [facility]
[2021-12-12 17:12] LABS: B Type Natriuretic Peptide 47 pg/mL (<100)
--- NOTE | 2021-12-12 17:33 | ED_ITS ---
HPI - General Adult General Chief complaint: General Medical Stated complaint: CATHETER PROBLEMS Time Seen by Provider: 12/12/21 15:23 Source: family and EMS Mode of arrival: EMS Limitations: altered mental status History of Present Illness HPI narrative: Patient comes to the emergency room via EMS from a [facility] reports that the patient's suprapubic catheter has been blocked, it was replaced on November 08. The facility reports that they have not seen any urine draining for the last 72 hours. Patient reports feeling more tired than usual and suprapubic pain. Denies fever or chills. Related Data Home Medications Medication Instructions Recorded Confirmed aspirin 81 mg tablet,delayed 81 mg PO DAILY 12/12/21 12/12/21 release lisinopril 5 mg tablet 5 mg PO DAILY 12/12/21 12/12/21 rosuvastatin 10 mg tablet 1 tab PO BEDTIME 12/12/21 12/12/21 ticagrelor 90 mg tablet 90 mg PO BID 12/12/21 12/12/21 Previous Rx's Medication Instructions Recorded finasteride 5 mg tablet 5 mg PO DAILY 90 days #90 tabs 10/25/21 terazosin 5 mg capsule 5 mg PO BEDTIME 90 days #90 caps 10/25/21 Allergies Allergy/AdvReac Type Severity Reaction Status Date / Time No Known Allergies Allergy Verified 10/25/21 08:15 Review of Systems Review of Systems: Yes Unobtainable due to mental condition PMFSH Past Medical History Source: unable to obtain Medical History Accelerated essential 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 Cardiomyopathy HTN (hypertension) Hypercholesterolemia Hyperlipidemia NSTEMI (non-ST elevated myocardial infarction) OA (osteoarthritis) Penile mass Pulmonary embolism Shortness of breath Urinary retention Surgical History History of surgery Social History Social History Household Members: Significant Other Housing: House Do you presently have visiting nurse or other home services: No Patient Tobacco Use Status: Never used Tobacco e-Cigarette/Vaping Use: Never Used Second Hand Smoke Exposure: No Advance Directives: Yes Advance Directives on File: Yes Advance Directives Date on File: 09/21/21 service: No Current occupational status: unemployed and retired Physical Exam ED Vital Signs: Vital Signs - 24 hr 12/12/21 14:39 12/12/21 15:41 12/12/21 16:08 Temperature 97.9 F 101.5 F H Pulse Rate 97 100 Respiratory Rate 18 Blood Pressure 99/48 L 87/41 L 98/51 L Pulse Oximetry 94 Oxygen Delivery Method Room Air 12/12/21 17:34 12/12/21 17:36 12/12/21 17:55 Temperature 97.8 F Pulse Rate 82 75 69 Respiratory Rate 16 Blood Pressure 99/48 L 108/51 L 103/52 L Pulse Oximetry 95 Oxygen Delivery Method Room Air 12/12/21 18:31 Temperature 97.8 F Pulse Rate 73 Respiratory Rate 17 Blood Pressure 105/54 L Pulse Oximetry 97 Oxygen Delivery Method Room Air BMI result Body Mass Index 21.4 Const Other: Appearance: Alert. Oriented X3. Seems uncomfortable, ill-appearing Eyes: Pupils equal, round and reactive to light. ENT: Pharynx normal. Neck: Normal inspection. Neck supple. No lymph nodes noted. No crepitus CVS: Normal heart rate and rhythm. Pulses normal. Normal S1 and S2 Respiratory: No respiratory distress. Breath sounds normal. No Wheezing. No rales Abdomen: Soft, has suprapubic tenderness and fullness Skin: Skin warm and dry. Pale Extremities: No lower extremity edema. No Lacerations. No Rash Neuro: Oriented X 3. No motor deficit. No sensory deficit. Moving all extremities. No slurred speech. CN 2 through 12 grossly intact Psych: calm, cooperative Course Course Course Narrative: On arrival, bladder scan shows over 100 mL of urine in the bladder. Patient was given 4 L of normal saline and ceftriaxone IV Patient's suprapubic Barry catheter fell out. Patient was draining from the ostomy site a large amount of urine mixed with pus. New Barry catheter has been inserted. Patient's creatinine is 4.36, likely due to dehydration. CT scan has been ordered to rule out renal obstruction. It is possible that an obstruction/Barry catheter not draining for days may be contributing to the elevated creatinine. After the catheter was reinserted, bladder scan shows 90 mL of urine/fluid I discussed the patient with Dr. Devineni, patient being admitted. CT scan of the abdomen/pelvis is pending. Medical Decision Making Lab Data Result diagrams: 12/12/21 15:44 12/12/21 15:44 Labs: Lab Results 12/12/21 12/12/21 12/12/21 Range/Units 15:32 15:44 15:44 WBC 12.5 H (4.8-10.8) X10*3/uL RBC 3.07 L (4.60-5.80) X10*6/uL Hgb 8.8 L (14.0-18.0) g/dl Hct 27.5 L (42.0-52.0) % MCV 89.6 (80.0-98.0) fL MCH 28.7 (27.0-33.0) pg MCHC 32.0 (31.0-36.0) g/dl RDW 15.7 (11.0-16.0) % Plt Count 224 (160-400) X10*3/uL MPV 9.4 (9.4-12.4) fL Immature Gran % (Auto) 0.5 H (0.0-0.4) % Neut % (Auto) 86.7 H (45-73) % Lymph % (Auto) 3.8 L (20-40) % [place] % (Auto) 8.7 (2-11) % Eos % (Auto) 0.1 (0-4) % Baso % (Auto) 0.2 (0-2) % Lymph # (Auto) 0.5 L (1.2-4.9) X10*3/uL [place] # (Auto) 1.1 (0.1-1.2) X10*3/uL Eos # (Auto) 0.0 (0.0-0.4) X10*3/uL Baso # (Auto) 0.0 (0.0-0.2) X10*3/uL Abs Immat Gran (auto) 0.06 H (0.00-0.03) X10*3/uL Absolute Neuts (auto) 10.9 H (2.0-8.3) x10*3/uL Absolute Nucleated RBC 0.000 (0.0-0.012) X10*3/uL Nucleated RBC % (auto) 0.0 (0.0-0.2) /100WBC PT (10.0-13.1) SEC INR (0.9-1.1) VBG pH (7.32-7.43) VBG pCO2 mmHg VBG pO2 mmHg VBG HCO3 (22-26) mmol/L VBG O2 Saturation % VBG Base Excess mmol/L Sodium 137 (135-145) mmol/L Potassium 4.6 (3.3-5.1) mmol/L Chloride 101 (96-108) mmol/L Carbon Dioxide 20 L (22-29) mmol/L Anion Gap 21 H (12-20) BUN 86 H D (9-16) mg/dL Creatinine 4.36 H* (0.5-1.4) mg/dL Estim Creat Clear Calc 13.4 Estimated GFR 13 Random Glucose 170 H D (60-115) mg/dL Lactic Acid (0.5-2.0) mmol/L Calcium 8.8 (8.4-10.2) mg/dL Magnesium 2.2 (1.6-2.6) mg/dL Total Bilirubin 1.5 H (0.0-1.0) mg/dL Direct Bilirubin 0.7 H (0.0-0.5) mg/dL AST 18 (5-37) U/L ALT 11 (0-40) U/L Alkaline Phosphatase 77 D (39-117) U/L Troponin I High Sens (<3.5-35.0) ng/L B-Natriuretic Peptide (<100) pg/mL Total Protein 7.1 D (6.5-8.0) g/dL Albumin 3.2 L (3.5-5.0) g/dL Lipase 24 (8-78) U/L Urine Color Yellow Urine Appearance Turbid Urine pH 7.0 (5.0-9.0) Ur Specific [place] 1.015 (1.005-1.025) Urine Protein 100 (2+) H (Neg-Trace) mg/dL Urine Glucose (UA) Negative (Negative) mg/dL Urine Ketones Negative (Negative) mg/dL Urine Blood Moderate (2+) H (Negative) Urine Nitrite Negative (Negative) Ur Leukocyte Esterase Large (3+) H (Negative) Urine RBC 0-2 (0-2) /HPF Urine WBC >50 H (0-5) /HPF Urine WBC Clumps Present Ur Squamous Epith Cells 0-2 (0-2) /HPF Urine Bacteria 4+ (None Seen) Hyaline Casts 3-5 (0-2) /LPF COVID-19 (CRISTIAN) (Negative) COVID-19 Clin Com 12/12/21 12/12/21 12/12/21 Range/Units 15:44 15:44 15:44 WBC (4.8-10.8) X10*3/uL RBC (4.60-5.80) X10*6/uL Hgb (14.0-18.0) g/dl Hct (42.0-52.0) % MCV (80.0-98.0) fL MCH (27.0-33.0) pg MCHC (31.0-36.0) g/dl RDW (11.0-16.0) % Plt Count (160-400) X10*3/uL MPV (9.4-12.4) fL Immature Gran % (Auto) (0.0-0.4) % Neut % (Auto) (45-73) % Lymph % (Auto) (20-40) % [place] % (Auto) (2-11) % Eos % (Auto) (0-4) % Baso % (Auto) (0-2) % Lymph # (Auto) (1.2-4.9) X10*3/uL [place] # (Auto) (0.1-1.2) X10*3/uL Eos # (Auto) (0.0-0.4) X10*3/uL Baso # (Auto) (0.0-0.2) X10*3/uL Abs Immat Gran (auto) (0.00-0.03) X10*3/uL Absolute Neuts (auto) (2.0-8.3) x10*3/uL Absolute Nucleated RBC (0.0-0.012) X10*3/uL Nucleated RBC % (auto) (0.0-0.2) /100WBC PT (10.0-13.1) SEC INR (0.9-1.1) VBG pH (7.32-7.43) VBG pCO2 mmHg VBG pO2 mmHg VBG HCO3 (22-26) mmol/L VBG O2 Saturation % VBG Base Excess mmol/L Sodium (135-145) mmol/L Potassium (3.3-5.1) mmol/L Chloride (96-108) mmol/L Carbon Dioxide (22-29) mmol/L Anion Gap (12-20) BUN (9-16) mg/dL Creatinine (0.5-1.4) mg/dL Estim Creat Clear Calc Estimated GFR Random Glucose (60-115) mg/dL Lactic Acid 1.4 (0.5-2.0) mmol/L Calcium (8.4-10.2) mg/dL Magnesium (1.6-2.6) mg/dL Total Bilirubin (0.0-1.0) mg/dL Direct Bilirubin (0.0-0.5) mg/dL AST (5-37) U/L ALT (0-40) U/L Alkaline Phosphatase (39-117) U/L Troponin I High Sens 29.7 D (<3.5-35.0) ng/L B-Natriuretic Peptide 47 (<100) pg/mL Total Protein (6.5-8.0) g/dL Albumin (3.5-5.0) g/dL Lipase (8-78) U/L Urine Color Urine Appearance Urine pH (5.0-9.0) Ur Specific [place] (1.005-1.025) Urine Protein (Neg-Trace) mg/dL Urine Glucose (UA) (Negative) mg/dL Urine Ketones (Negative) mg/dL Urine Blood (Negative) Urine Nitrite (Negative) Ur Leukocyte Esterase (Negative) Urine RBC (0-2) /HPF Urine WBC (0-5) /HPF Urine WBC Clumps Ur Squamous Epith Cells (0-2) /HPF Urine Bacteria (None Seen) Hyaline Casts (0-2) /LPF COVID-19 (CRISTIAN) Negative (Negative) COVID-19 Clin Com See Note 12/12/21 12/12/21 12/12/21 Range/Units 15:44 17:26 17:53 WBC (4.8-10.8) X10*3/uL RBC (4.60-5.80) X10*6/uL Hgb (14.0-18.0) g/dl Hct (42.0-52.0) % MCV (80.0-98.0) fL MCH (27.0-33.0) pg MCHC (31.0-36.0) g/dl RDW (11.0-16.0) % Plt Count (160-400) X10*3/uL MPV (9.4-12.4) fL Immature Gran % (Auto) (0.0-0.4) % Neut % (Auto) (45-73) % Lymph % (Auto) (20-40) % [place] % (Auto) (2-11) % Eos % (Auto) (0-4) % Baso % (Auto) (0-2) % Lymph # (Auto) (1.2-4.9) X10*3/uL [place] # (Auto) (0.1-1.2) X10*3/uL Eos # (Auto) (0.0-0.4) X10*3/uL Baso # (Auto) (0.0-0.2) X10*3/uL Abs Immat Gran (auto) (0.00-0.03) X10*3/uL Absolute Neuts (auto) (2.0-8.3) x10*3/uL Absolute Nucleated RBC (0.0-0.012) X10*3/uL Nucleated RBC % (auto) (0.0-0.2) /100WBC PT 16.4 H (10.0-13.1) SEC INR 1.4 H (0.9-1.1) VBG pH 7.43 (7.32-7.43) VBG pCO2 28 mmHg VBG pO2 65 mmHg VBG HCO3 19 L (22-26) mmol/L VBG O2 Saturation 89.0 % VBG Base Excess -4.1 mmol/L Sodium (135-145) mmol/L Potassium (3.3-5.1) mmol/L Chloride (96-108) mmol/L Carbon Dioxide (22-29) mmol/L Anion Gap (12-20) BUN (9-16) mg/dL Creatinine (0.5-1.4) mg/dL Estim Creat Clear Calc Estimated GFR Random Glucose (60-115) mg/dL Lactic Acid (0.5-2.0) mmol/L Calcium (8.4-10.2) mg/dL Magnesium (1.6-2.6) mg/dL Total Bilirubin (0.0-1.0) mg/dL Direct Bilirubin (0.0-0.5) mg/dL AST (5-37) U/L ALT (0-40) U/L Alkaline Phosphatase (39-117) U/L Troponin I High Sens (<3.5-35.0) ng/L B-Natriuretic Peptide (<100) pg/mL Total Protein (6.5-8.0) g/dL Albumin (3.5-5.0) g/dL Lipase (8-78) U/L Urine Color Yellow Urine Appearance Turbid Urine pH 6.0 (5.0-9.0) Ur Specific [place] >= 1.030 H (1.005-1.025) Urine Protein 300 (3+) H (Neg-Trace) mg/dL Urine Glucose (UA) Negative (Negative) mg/dL Urine Ketones 15 (Negative) mg/dL Urine Blood Large (3+) H (Negative) Urine Nitrite Negative (Negative) Ur Leukocyte Esterase Large (3+) H (Negative) Urine RBC >20 H (0-2) /HPF Urine WBC >50 (0-5) /HPF Urine WBC Clumps Ur Squamous Epith Cells 0-2 (0-2) /HPF Urine Bacteria 3+ (None Seen) Hyaline Casts 0-2 (0-2) /LPF COVID-19 (CRISTIAN) (Negative) COVID-19 Clin Com Critical Care Time Critical Care Time Critical Care Time: Yes Total Critical Care Time: 90 Attestation: I have personally provided critical care time. Time includes review of lab data, radiology results, discussion with consultants, and monitoring for potential decompensation. Intervention performed as documented. Discharge Plan Discharge Clinical Impression: Sepsis secondary to UTI, Acute urinary retention, ALETHEA (acute kidney injury) Patient Disposition: Admitted As Inpatient
[2021-12-12 17:58] LABS: Venous Blood Gas Refer to POC result
[2021-12-12 17:59] LABS: VBG Base Excess -4.1 mmol/L; VBG HCO3 19 mmol/L (22-26); VBG pCO2 28 mmHg; VBG pH 7.43 (7.32-7.43); VBG pO2 65 mmHg
[2021-12-12 18:01] LABS: Appearance Urine Turbid; Color Urine Yellow; Glucose Urine UA Negative (Negative); Nitrite Urine Negative (Negative); Specific Gravity - Urine >= 1.030 (1.005-1.025); UMIC TRIGGER UACC YES; Urine Blood Large (3+) (Negative); Urine Ketones 15 mg/dL (Negative); Urine Protein 300 (3+) mg/dL (Neg-Trace)
[2021-12-12 18:04] LABS: Leukocyte Esterase Urine Large (3+) (Negative)
[2021-12-12 18:07] LABS: UACC Culture Trigger YES; WBC Urine >50 /HPF (0-5)
[2021-12-12 18:08] LABS: Bacteria Urine 3+ (None Seen); Hyaline Casts Urine 0-2 /LPF (0-2); RBC Urine >20 /HPF (0-2); Squamous Epithelial Cell Urine 0-2 /HPF (0-2)
[2021-12-12] MEDS: 0.9 % Sodium Chloride 1,000 ML 999 ML IVCONT (18:26)
--- NOTE | 2021-12-12 20:06 | P.HPHOSP_ITS ---
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 He is here today with fri end and healthcare proxy Shelby Simmons. Pt reports fatigue and weakness. Has been residing at [facility] for rehab since prolonged admission last month for septic shock from urosepsis and toxic metabolic encephalopathy and NSTEMI from 10/26-11/02 with [place] [facility]. Ct abd/pelvis showed hernandez portion of suprapubic tube inflated in penile urethra with diffuse bladder wall thickening and infiltration of the perivesicular fat with infectious vs neoplastic process to be considered. There is also 7mm bladder stone and mild left hydronephrosis and ureteral dilitation. CXR without consolidation but showing bronchial wall thickening. WBC 12.5. Chronic anemia with stable H/H 8.8/27.5. Creat elevated 4.36, BUN 86 (baseline 1.29 and 16). Electrolytes stable. Glucose 170. BNP 47. Trop-I 29.7. UA spec grav >1.030, 3+protein, 3+leuks, 3+ blood, nitrite negative, 4+ bacteria. Pyuria also present. Received 2gm ceftriaxone. Pt received 4L NS bolus due to hypotension on arrival with BP o f 87/41 with addl BPs with SBP in 90s, improved to 115/68 during exam. Pt was febrile 101.5 and tachycardic to 100. Lactic acid 1.6. Pt to be admitted for ALETHEA and UTI. <LISA Aguilera - Last Filed: 12/12/21 20:57> Review of Systems Review of Systems: General: No fevers, malaise, unintentional weight loss Cardiovascular: No chest pain, palpitations, or leg edema Respiratory: No shortness of breath, wheezing, cough GI: +suprapubic pain. No nausea, vomiting, diarrhea, constipation, melena, hematochezia : +urinary catheter blockage, +hematuria. Neuro: No headaches, weakness, paresthesias Skin: +skin lesion nose. 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 Mother No problems noted. <LISA Aguilera - Last Filed: 12/12/21 20:57> Surgical History: Surgical History History of surgery <LISA Aguilera - Last Filed: 12/12/21 20:57> Social History: Social History Household Members: Significant Other Housing: House Do you presently have visiting nurse or other home services: No Patient Tobacco Use Status: Never used Tobacco e-Cigarette/Vaping Use: Never Used Second Hand Smoke Exposure: No Advance Directives: Yes Advance Directives on File: Yes Advance Directives Date on File: 09/21/21 service: No Current occupational status: unemployed and retired <LISA Aguilera - Last Filed: 12/12/21 20:57> Meds Allergies/Adverse reactions: Allergies Allergy/AdvReac Type Severity Reaction Status Date / Time No Known Allergies Allergy Verified 10/25/21 08:15 <LISA Aguilera Last Filed: 12/12/21 20:57> Home medications: Home Medications Medication Instructions Recorded Confirmed Last Taken Type aspirin 81 mg tablet,delayed 81 mg PO DAILY 12/12/21 12/12/21 12/12/21 History release lisinopril 5 mg tablet 5 mg PO DAILY 12/12/21 12/12/21 12/12/21 History rosuvastatin 10 mg tablet 1 tab PO BEDTIME 12/12/21 12/12/21 12/11/21 History ticagrelor 90 mg tablet 90 mg PO BID 12/12/21 12/12/21 12/12/21 History <LISA Aguilera - Last Filed: 12/12/21 20:57> Physical Exam Vital Signs and Narrative: Vital Signs: Last Vital Signs Temp 97.8 F 12/12/21 18:31 Pulse 73 12/12/21 18:31 Resp 17 12/12/21 18:31 BP 105/54 L 12/12/21 18:31 Pulse Ox 97 12/12/21 18:31 O2 Del Method 12/12/21 18:31 BMI result Body Mass Index 21.4 <LISA Aguilera - Last Filed: 12/12/21 20:57> Constitutional - Awake and Alert, No apparent distress Eyes - PERRLA, EOMI Cardiovascular - S1S2, RRR, No edema Respiratory - Normal lung expansion, Normal respiratory effort, No respiratory distress, CTA bilaterally Gastrointestinal - NT / ND; +BS; No rebound or guarding - Suprapubic catheter in place draining cloudy yellow urine Extremities - no calf tenderness bilaterally, no swelling Skin - Warm/Dry Neurological - Alert & oriented x3, 3/5 strength bue and ble, tremulous <LISA Aguilera - Last Filed: 12/12/21 20:57> Results Labs CBC and Chem 7: : 12/13/21 00:46 12/13/21 00:46 <LISA Aguilera - Last Filed: 12/12/21 20:57> Labs: Laboratory Results - last 24 hr 12/12/21 12/12/21 12/12/21 15:32 15:44 15:44 MCV 89.6 MCH 28.7 MCHC 32.0 RDW 15.7 Plt Count 224 MPV 9.4 Immature Gran % (Auto) 0.5 H Neut % (Auto) 86.7 H Lymph % (Auto) 3.8 L [place] % (Auto) 8.7 Eos % (Auto) 0.1 Baso % (Auto) 0.2 Lymph # (Auto) 0.5 L [place] # (Auto) 1.1 Eos # (Auto) 0.0 Baso # (Auto) 0.0 Abs Immat Gran (auto) 0.06 H Absolute Neuts (auto) 10.9 H Absolute Nucleated RBC 0.000 Nucleated RBC % (auto) 0.0 PT INR VBG pH VBG pCO2 VBG pO2 VBG HCO3 VBG O2 Saturation VBG Base Excess Anion Gap 21 H Estim Creat Clear Calc 13.4 Estimated GFR 13 Random Glucose 170 H D Lactic Acid Calcium 8.8 Magnesium 2.2 Total Bilirubin 1.5 H Direct Bilirubin 0.7 H AST 18 ALT 11 Alkaline Phosphatase 77 D B-Natriuretic Peptide Total Protein 7.1 D Albumin 3.2 L Lipase 24 Urine Color Yellow Urine Appearance Turbid Urine pH 7.0 Ur Specific [place] 1.015 Urine Protein 100 (2+) H Urine Glucose (UA) Negative Urine Ketones Negative Urine Blood Moderate (2+) H Urine Nitrite Negative Ur Leukocyte Esterase Large (3+) H Urine RBC 0-2 Urine WBC >50 H Urine WBC Clumps Present Ur Squamous Epith Cells 0-2 Urine Bacteria 4+ Hyaline Casts 3-5 COVID-19 (CRISTIAN) COVID-19 Clin Com 12/12/21 12/12/21 12/12/21 15:44 15:44 15:44 MCV MCH MCHC RDW Plt Count MPV Immature Gran % (Auto) Neut % (Auto) Lymph % (Auto) [place] % (Auto) Eos % (Auto) Baso % (Auto) Lymph # (Auto) [place] # (Auto) Eos # (Auto) Baso # (Auto) Abs Immat Gran (auto) Absolute Neuts (auto) Absolute Nucleated RBC Nucleated RBC % (auto) PT INR VBG pH VBG pCO2 VBG pO2 VBG HCO3 VBG O2 Saturation VBG Base Excess Anion Gap Estim Creat Clear Calc Estimated GFR Random Glucose Lactic Acid 1.4 Calcium Magnesium Total Bilirubin Direct Bilirubin AST ALT Alkaline Phosphatase B-Natriuretic Peptide 47 Total Protein Albumin Lipase Urine Color Urine Appearance Urine pH Ur Specific [place] Urine Protein Urine Glucose (UA) Urine Ketones Urine Blood Urine Nitrite Ur Leukocyte Esterase Urine RBC Urine WBC Urine WBC Clumps Ur Squamous Epith Cells Urine Bacteria Hyaline Casts COVID-19 (CRISTIAN) Negative COVID-19 Clin Com See Note 12/12/21 12/12/21 12/12/21 15:44 17:26 17:53 MCV MCH MCHC RDW Plt Count MPV Immature Gran % (Auto) Neut % (Auto) Lymph % (Auto) [place] % (Auto) Eos % (Auto) Baso % (Auto) Lymph # (Auto) [place] # (Auto) Eos # (Auto) Baso # (Auto) Abs Immat Gran (auto) Absolute Neuts (auto) Absolute Nucleated RBC Nucleated RBC % (auto) PT 16.4 H INR 1.4 H VBG pH 7.43 VBG pCO2 28 VBG pO2 65 VBG HCO3 19 L VBG O2 Saturation 89.0 VBG Base Excess -4.1 Anion Gap Estim Creat Clear Calc Estimated GFR Random Glucose Lactic Acid Calcium Magnesium Total Bilirubin Direct Bilirubin AST ALT Alkaline Phosphatase B-Natriuretic Peptide Total Protein Albumin Lipase Urine Color Yellow Urine Appearance Turbid Urine pH 6.0 Ur Specific [place] >= 1.030 H Urine Protein 300 (3+) H Urine Glucose (UA) Negative Urine Ketones 15 Urine Blood Large (3+) H Urine Nitrite Negative Ur Leukocyte Esterase Large (3+) H Urine RBC >20 H Urine WBC >50 Urine WBC Clumps Ur Squamous Epith Cells 0-2 Urine Bacteria 3+ Hyaline Casts 0-2 COVID-19 (CRISTIAN) COVID-19 Clin Com <LISA Aguilera - Last Filed: 12/12/21 20:57> Imaging Radiologist's Impressions: Impressions Chest X-Ray 12/12/21 15:55 IMPRESSION: No consolidation. Bronchial wall thickening can be seen with a small airways process such as asthma or atypical/viral infection. Alternatively this could be chronic. Abdomen/Pelvis CT 12/12/21 18:20 IMPRESSION: New suprapubic tube. The Hernandez portion of the suprapubic tube is inflated in the penile urethra and should be repositioned. Diffuse bladder wall thickening and infiltration of the perivesicular fat. Infectious inflammatory and neoplastic process should be considered. 7 mm bladder stone. Mild left hydronephrosis and ureteral dilatation. The previously identified left internal ureteral stent October 2021 exam is no longer seen. Enlarged prostate gland. Diverticulosis of the colon. Enlarged retroperitoneal and left inguinal lymph nodes similar to previous exam. Gallstones. Findings will be communicated by the [place] work flow contract design agent. Fleischner guidelines were followed. 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 1-Severe sepsis secondary to UTI -Hypotension on arrival, febrile, and mild tachcyardia with luekocytosis and ALETHEA -Received 4L NS bolus in ED. Hold further IVF d/t hx HFrEF. Patient denies sob at this time -IV ceftriaxone -Monitor BPs -Follow CBC -Admit to telemetry 2-acute UTI with severe sepsis -Ct abd/pelvis with incorrectly positioned suprapubic catheter. Catheter repositioned. COntinue catheter. Ct also shows diffuse bladder wall thickening and infiltration of the perivesicular fat. Infectious, inflammatory, or neoplastic etiology should be considered. -no hx esbl. Recent hx enterococcus faecalis treated with ampicillin and morganella, proteus infection treated with levaquin -admitted last month with septic shock from urosepsis -IV ceftrixone for empiric tx, UC pending -Follow cbc -Urology and ID consults placed 3-ALETHEA secondary to severe sepsis/UTI -Received 4L NS bolus in ED. Hold IVF at this time d/t h/o HFrEF -Follow BMP 4-Chronic HFrEF without exacerbation -BNP normal. Recheck BNP am -Echo 11/06 with severely decreased systolic fx with EF 25-30% and grade II diastolic dysfunction. -Received 4L IV NS d/t hypotension in ED. No evidence of fluid overload at this time. Pt denies sob, no edema -Continue suprapubic catheter with strict I&O -Cardiac diet 5-HTN- bps low normal at this time -Hold home meds 6-BPH with urinary retention -Continue suprapubic catheter -Continue home meds 7-CAD w h/o NSTEMI s/p cardiac catheterization 11/06 -No anginal cp -Continue asa, ticagrelor, statin 8- generalized weakness -pt currently residing at SNF for rehab following recent discharge -PT consult placed 9-Nasal skin lesion -suspicious for malignancy -present for 10 years pt reports never evaluated -Needs dermatology follow up soon on discharge DVT prophylaxis-heparin DNR/DNI per MOLST Pt requires inpt stay of at least 2 midnights due to severe urosepsis and ALETHEA requiring IV abx and fluids with close monitoring of renal function and for evidence of acute on chronic hf. 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 1-Severe sepsis secondary to UTI -Hypotension on arrival, febrile, and mild tachcyardia with luekocytosis and ALETHEA -Received 4L NS bolus in ED. Hold further IVF d/t hx HFrEF. Patient denies sob at this time -IV ceftriaxone -Monitor BPs -Follow CBC -Admit to telemetry 2-acute UTI with severe sepsis -Ct abd/pelvis with incorrectly positioned suprapubic catheter. Catheter repositioned. COntinue catheter. Ct also shows diffuse bladder wall thickening and infiltration of the perivesicular fat. Infectious, inflammatory, or neoplastic etiology should be considered. -no hx esbl. Recent hx enterococcus faecalis treated with ampicillin and morganella, proteus infection treated with levaquin -admitted last month with septic shock from urosepsis -IV ceftrixone for empiric tx, UC pending -Follow cbc -Urology and ID consults placed 3-ALETHEA secondary to severe sepsis/UTI -Received 4L NS bolus in ED. Hold IVF at this time d/t h/o HFrEF -Follow BMP 4-Chronic HFrEF without exacerbation -BNP normal. Recheck BNP am -Echo 11/06 with severely decreased systolic fx with EF 25-30% and grade II diastolic dysfunction. -Received 4L IV NS d/t hypotension in ED. No evidence of fluid overload at this time. Pt denies sob, no edema -Continue suprapubic catheter with strict I&O -Cardiac diet 5-HTN- bps low normal at this time -Hold home meds 6-BPH with urinary retention -Continue suprapubic catheter -Continue home meds 7-CAD w h/o NSTEMI s/p cardiac catheterization 11/06 -No anginal cp -Continue asa, ticagrelor, statin 8- generalized weakness -pt currently residing at SNF for rehab following recent discharge -PT consult placed 9-Nasal skin lesion -suspicious for malignancy -present for 10 years pt reports never evaluated -Needs dermatology follow up soon on discharge DVT prophylaxis-heparin DNR/DNI per MOLST Pt requires inpt stay of at least 2 midnights due to severe urosepsis and ALETHEA requiring IV abx and fluids with close monitoring of renal function and for evidence of acute on chronic hf. AteendingAddendum: pt's Follow up Blood pressure on soft side , pt received 4.5Lits NS ; c/w main tenance IV fluids Repeat CXR shows PNA: we will start pt on IV Vanc and Zosyn (renally dosed, pharmacy to adjust.) Off note: Hx of corpora cavernosa clot Diagnosed on previous admission on September 14.? Doppler ultrasound showed possible clot within left corpora cavernosa.? Urology recommended Eliquis.? Has been taking Eliquis 2.5 mg b.i.d..? On hold during this admission for presumed angiogram.? Plan to finish total of 3 months per Urology. pt is almost at the end of 3 month eliquis <Bryn Dyer MD - Last Filed: 12/13/21 01:37> Quality Stroke Does the patient have a stroke diagnosis?: No <LISA Aguilera - Last Filed: 12/12/21 20:57> VTE Prior VTE?: Yes <LISA Aguilera - Last Filed: 12/12/21 20:57> VTE Risk Level:: Medical - moderate - high <LISA Aguilera - Last Filed: 12/12/21 20:57> VTE Device Contraindication: Treatment Not Indicated <LISA Aguilera - Last Filed: 12/12/21 20:57> VTE Drug Contraindication: N/A - Med Ordered <LISA Aguilera - Last Filed: 12/12/21 20:57>
--- NOTE | 2021-12-12 20:27 | PC.NURSE ---
rajendra Hua approached this RN after noticing what was registering as v. tach on the pt.'s telemetry strip. Strip was printed. Pt. noted to be cold and extremely tremulous, warm blankets x2 applied and telemetry is no longer alarming. Shayna Dyer MD notified and sent an image of this strip. Per Gomez - Tylenol and warm blankets. Appears to be artifact per .
--- NOTE | 2021-12-12 20:58 | PC.NURSE ---
Fluids late to be hung d/t no pumps available at this time. Tech down to basement attempting to obtain additional pumps
[2021-12-12] MEDS: Doxazosin Mesylate 2 MG TABLET 4 MG PO (20:59)
[2021-12-12] MEDS: Atorvastatin Calcium 40 MG TABLET PO (21:00)
[2021-12-12] MEDS: Acetaminophen 325 MG TABLET 650 MG PO (21:00)
[2021-12-12] MEDS: Heparin Sodium,Porcine 5,000 UNIT/ML VIAL 5000 UNIT SUBCUT (21:00)
[2021-12-12] MEDS: Ticagrelor 90 MG TABLET PO (21:00)
--- NOTE | 2021-12-12 21:38 | PC.NURSE ---
Gomez changed verbal orders from 250cc NS bolus to 500cc NS bolus re: pt.'s low BP of 79/40
[2021-12-12] MEDS: 0.9 % Sodium Chloride 500 ML IV (21:46)
[2021-12-12 22:08] LABS: Lactic Acid 0.9 mmol/L (0.5-2.0)
[2021-12-13] VITALS (24 sets, daily range): BP systolic 65–146; BP diastolic 29–73; PULSE 68–116; RESP 12–27; TEMP 36.3–38.8; O2SAT 93–97; BMI 22.3
--- NOTE | 2021-12-13 00:32 | PC.NURSE ---
Pt.'s BP dropping again (s/p the additional 500cc bolus). Per Gomez, check manual BP and elevate legs. Manual BP 80/50- provider aware. Provider ordered STAT labs- awaiting lab draw and results. Provider also notified that pt.'s temperature is currently 99.5 (per core/catheter) and 99.9 (rectal). Provider stating we will wait to see what pt.'s labs show, then go from there
[2021-12-13] MEDS: 0.9 % Sodium Chloride Flush 3 ML SYRINGE IVFLUSH ×3 (00:49→17:14)
[2021-12-13] MEDS: 0.9 % Sodium Chloride 1,000 ML 50 ML IVCONT (00:49)
[2021-12-13 00:54] LABS: Basophils Percent Auto 0.2 % (0-2); Eosinophils Percent Auto 0.4 % (0-4); Hematocrit 24.5 % (42.0-52.0); Imm Gran Abs Auto 0.07 X10*3/uL (0.00-0.03); Imm Gran Pct Auto 0.6 % (0.0-0.4); Lymphocytes Absolute Auto 0.4 X10*3/uL (1.2-4.9); Lymphocytes Percent Auto 3.4 % (20-40); MANUAL DIFF FLAG NO; Mean Corpuscular HGB Conc 32.7 g/dl (31.0-36.0); Mean Corpuscular Hemoglobin 29.5 pg (27.0-33.0); Mean Corpuscular Volume 90.4 fL (80.0-98.0); Mean Platelet Volume 9.1 fL (9.4-12.4); Monocytes Percent Auto 9.5 % (2-11); Neutrophils Absolute Auto 9.4 x10*3/uL (2.0-8.3); Neutrophils Percent Auto 85.9 % (45-73); Platelet Count 165 X10*3/uL (160-400); Red Blood Count 2.71 X10*6/uL (4.60-5.80); Red Cell Distribution Width 15.5 % (11.0-16.0); White Blood Count 10.9 X10*3/uL (4.8-10.8)
--- NOTE | 2021-12-13 00:58 | PC.NURSE ---
Per MD Gomez, he is going to potentially going to consult ICU d/t pt.'s low BPs once pt.'s lab work comes back. Will continue to monitor and watch for lab work results. Awaiting IV antibiotic (Vanco. and Zosyn) orders to be verified at this time
[2021-12-13 01:02] LABS: Lactic Acid 0.7 mmol/L (0.5-2.0)
[2021-12-13] MEDS: Piperacillin Sodium/Tazobactam 2.25 GM in 0.9 % Sodium Chloride 50 ML IV ×3 (01:08→17:26)
[2021-12-13 01:14] LABS: Anion Gap 14 (12-20); Blood Urea Nitrogen 75 mg/dL (9-16); Calcium 7.7 mg/dL (8.4-10.2); Carbon Dioxide 19 mmol/L (22-29); Chloride 111 mmol/L (96-108); Creatinine Clr Calc Pharmacy 16.5; Estimated Glomerular Filt Rate 17; Glucose Random 114 mg/dL (60-115); Sodium 140 mmol/L (135-145)
[2021-12-13 01:18] LABS: B Type Natriuretic Peptide 91 pg/mL (<100)
[2021-12-13] MEDS: vancomycin HCL 1,000 MG, vancomycin HCL 750 MG in 0.9 % Sodium Chloride 500 ML 267.5 MG IV (02:21)
[2021-12-13 06:31] LABS: Basophils Percent Auto 0.2 % (0-2); Eosinophils Absolute Auto 0.1 X10*3/uL (0.0-0.4); Eosinophils Percent Auto 0.5 % (0-4); Hematocrit 25.1 % (42.0-52.0); Hemoglobin 8.2 g/dl (14.0-18.0); Imm Gran Abs Auto 0.09 X10*3/uL (0.00-0.03); Imm Gran Pct Auto 0.7 % (0.0-0.4); Lymphocytes Absolute Auto 0.5 X10*3/uL (1.2-4.9); Lymphocytes Percent Auto 4.1 % (20-40); MANUAL DIFF FLAG NO; Mean Corpuscular HGB Conc 32.7 g/dl (31.0-36.0); Mean Corpuscular Hemoglobin 29.7 pg (27.0-33.0); Mean Corpuscular Volume 90.9 fL (80.0-98.0); Mean Platelet Volume 9.2 fL (9.4-12.4); Monocytes Percent Auto 8.2 % (2-11); Neutrophils Absolute Auto 10.6 x10*3/uL (2.0-8.3); Neutrophils Percent Auto 86.3 % (45-73); Platelet Count 177 X10*3/uL (160-400); Red Blood Count 2.76 X10*6/uL (4.60-5.80); Red Cell Distribution Width 15.8 % (11.0-16.0); White Blood Count 12.3 X10*3/uL (4.8-10.8)
[2021-12-13 06:53] LABS: Anion Gap 15 (12-20); Blood Urea Nitrogen 72 mg/dL (9-16); Calcium 7.8 mg/dL (8.4-10.2); Carbon Dioxide 19 mmol/L (22-29); Chloride 111 mmol/L (96-108); Creatinine Clr Calc Pharmacy 17.3; Estimated Glomerular Filt Rate 18; Glucose Random 110 mg/dL (60-115); Potassium 4.3 mmol/L (3.3-5.1); Sodium 141 mmol/L (135-145)
[2021-12-13 06:57] LABS: B Type Natriuretic Peptide 228 pg/mL (<100)
--- NOTE | 2021-12-13 07:28 | PHA.PROG ---
Admission Date/Time: December 12, 2021 19:59 Indication: Severe sepsis secondary to UTI Weight in k.5 kg Adjusted body weight in K.16 kg [place] body weight in K.6 kg Obesity Dosing Indication % IBW: N/A Serum Creatinine - Last 168 Hours 12/12/21 12/13/21 12/13/21 15:44 00:46 06:22 Creatinine 4.36 H* 3.54 H 3.37 H Estimated CrCl and GFR - Last 168 Hours 12/12/21 12/13/21 12/13/21 15:44 00:46 06:22 Estim Creat Clear Calc 13.4 16.5 17.3 Estimated GFR 13 17 18 Vancomycin Loading Dose: 1750 mg Current Vancomycin Dosing Regimen: 1000 mg Q48H Date and Time for next Vancomycin Level to be drawn: 12/14/21 @ 0600 Pharmacist Comments on Vancomycin Plan: Patient received a vancomycin 1750 mg load dose in the ED 12/13 @ 0221. Patient is in severe ALETHEA therefore we will dose daily by random levels. Patient currently scheduled for vancomcyin 1000 mg Q48H, expected AUC 521 with a trough of 16.8. Will get a random level tomorrow 12/14 @ 0600 to see if patient needs a low dose Q24H dosing. Pharmacy will monitor renal function daily, and adjust when needed. Arcelia Borges PharmD Vancomycin dosing will take advantage of [employer] as a clinical decision support tool that uses Bayesian modeling to calculate individual patient's pharmacokinetic parameters and forecast the patient's drug concentration time course with the target goal AUC 24 range of 400 - 600 mg/L/hr.
[2021-12-13] MEDS: Aspirin Enteric Coated 81 MG TABLET.DR PO (09:34)
[2021-12-13] MEDS: Ticagrelor 90 MG TABLET PO ×2 (09:35→20:24)
[2021-12-13] MEDS: Docusate Sodium 100 MG CAPSULE PO (09:35)
[2021-12-13] MEDS: Acetaminophen 325 MG TABLET 650 MG PO ×2 (09:35→19:16)
[2021-12-13] MEDS: Heparin Sodium,Porcine 5,000 UNIT/ML VIAL 5000 UNIT SUBCUT ×2 (09:35→20:23)
--- NOTE | 2021-12-13 09:47 | PC.NURSE ---
pt is a/o x 2, no sob/deny noted skin pink warm dry speaks in full sentences. lungs - cta. heart sound regular. abd soft, n/t bx + x 4 quad. suprapubic cath in place in lower abd patent and draining clear yellow urine. hob up. pt aware of plan of care.
[2021-12-13] MEDS: Finasteride 5 MG TABLET PO (10:25)
--- NOTE | 2021-12-13 10:26 | MHC.CM.PN ---
Met with patient in regards to discharge planning. Patient lives with his sig other Shelby, ambulates with a cane and is active with [facility]. Patient is oriented to self and situation only right now. IMM explained and signed. Attempted to reach patient's sig other/HCP, Shelby via telephone at [phone]. No answer. Unable to leave a voicemail. CM assessment completed using medical record. PCP verified. Copy of HCP verified to be on file. Patient received 3 Moderna vaccines. Shelby will transport patient home with resumption of services when medially stable.
--- NOTE | 2021-12-13 10:32 | PC.NURSE ---
dr. dill at bedside, pt aware of plan of care.
--- NOTE | 2021-12-13 10:37 | PC.NURSE ---
pt's at bedside aware of plan of care.
--- NOTE | 2021-12-13 11:14 | PC.NURSE ---
Pt is A & o X 3. temp 99.7 f, cat is patent and draining. Partner at bedside.
--- NOTE | 2021-12-13 11:58 | PC.NURSE ---
PHYSICAL Therapist at bedside. Pt complaint of dizziness on rising and unsteady gait on standing.
--- NOTE | 2021-12-13 12:24 | PC.NURSE ---
BP DROP TO 69/39*, CYCLING Q10M. MAP 49. PT BECOMES ALERT TO VOCAL STIMULI, ORIENTED TO PERSON AND PLACE. PT PLACED IN [place]. MD MITTAL NOTIFIED.
[2021-12-13 12:27] LABS: Glucose, Whole Blood 94 mg/dL (60-115)
[2021-12-13] MEDS: 0.9 % Sodium Chloride 1,000 ML 999 ML IV (12:30)
[2021-12-13] MEDS: Albumin Human 25 % 100 ML IV ×2 (12:49→13:49)
--- NOTE | 2021-12-13 14:00 | PC.NURSE ---
Pt in high fowlers position, eating lunch with no issue. BP 108/53, map 71. Mouth care provided. partner at bedside.
--- NOTE | 2021-12-13 14:17 | HO.PM.IMPN ---
Subjective Subjective Date of Service: 12/13/21 Interval History: cc: suprapubic pain, non draingin catheter interval history: lethargic, now draining Cardiovascular Cardiovascular: Reports no additional cardiovascular complaints Respiratory Respiratory: Reports no additional respiratory complaints Physical Exam Vital Signs: Vital Signs: Last Vital Signs Temp 97.9 F 12/13/21 13:59 Pulse 68 12/13/21 13:59 Resp 12 12/13/21 13:59 BP 108/53 L 12/13/21 13:59 Pulse Ox 96 12/13/21 13:59 O2 Del Method 12/13/21 13:59 BMI result Body Mass Index 21.4 General: lethargic, ill appearing, no acute distress Resp: CTA bilateral, no accessory muscles used CVS: S1,S2,RRR GI: soft, non tender, non distended, suprapubic in place Neuro: motor grossly intact, alert Psych: appropriate affect, appropriate insight Objective Data Active Medications Acetaminophen (Acetaminophen 325 Mg Tablet) 650 mg PO Q6H PRN PRN Reason: Pain, Mild (Pain Scale 1-3) Last Admin: 12/13/21 09:35 Dose: 650 mg Documented By: HAYDER Aspirin (Aspirin Enteric Coated 81 Mg Tablet.) 81 mg PO DAILY [facility] Last Admin: 12/13/21 09:34 Dose: 81 mg Documented By: HAYDER Atorvastatin Calcium (Atorvastatin Calcium 40 Mg Tablet) 40 mg PO BEDTIME [facility] Last Admin: 12/12/21 21:00 Dose: 40 mg Documented By: CEM Docusate Sodium (Docusate Sodium 100 Mg Capsule) 100 mg PO BID PRN PRN Reason: Constipation Last Admin: 12/13/21 09:35 Dose: 100 mg Documented By: HAYDER Doxazosin Mesylate (Doxazosin Mesylate 2 Mg Tablet) 4 mg PO BEDTIME [facility] Last Admin: 12/12/21 20:59 Dose: 4 mg Documented By: ECM Finasteride (Finasteride 5 Mg Tablet) 5 mg PO DAILY [facility] Last Admin: 12/13/21 10:25 Dose: 5 mg Documented By: HAYDER Heparin Sodium (Porcine) (Heparin Sodium,Porcine 5,000 Unit/Ml Vial) 5,000 unit SUBCUT Q12H [facility] Last Admin: 12/13/21 09:35 Dose: 5,000 unit Documented By: HAYDER Piperacillin Sod/Tazobactam (Sod 2.25 gm/ Sodium Chloride) 50 mls @ 100 mls/hr IV Q8H [facility] Last Infusion: 12/13/21 10:25 Dose: 0 mls/hr Documented By: HAYDER Albumin Human (Kedbumin 25 %) 100 mls @ 100 mls/hr IV Q1H [facility] Stop: 12/13/21 14:44 Last Admin: 12/13/21 13:49 Dose: 100 mls/hr Documented By: DALLASORALB Ondansetron HCl (Ondansetron Hcl 4 Mg/2 Ml Vial) 4 mg IVPUSH Q8H PRN PRN Reason: Nausea and Vomiting Pharmacy Consult (Consult Rx Vancomycin Dosing) 1 each MISCELLANE DAILY PRN PRN Reason: Consult order Sodium Chloride (0.9 % Sodium Chloride Flush 3 Ml Syringe) 3 ml IVFLUSH QSHIFT [facility] Last Admin: 12/13/21 09:37 Dose: 3 ml Documented By: HAYDER Ticagrelor (Ticagrelor 90 Mg Tablet) 90 mg PO BID [facility] Last Admin: 12/13/21 09:35 Dose: 90 mg Documented By: HAYDER Labs CBC & Chem 7: 12/13/21 06:22 12/13/21 06:22 Labs: Laboratory Results - last 24 hr 12/12/21 12/12/21 12/12/21 15:32 15:44 15:44 MCV 89.6 MCH 28.7 MCHC 32.0 RDW 15.7 Plt Count 224 MPV 9.4 Immature Gran % (Auto) 0.5 H Neut % (Auto) 86.7 H Lymph % (Auto) 3.8 L [place] % (Auto) 8.7 Eos % (Auto) 0.1 Baso % (Auto) 0.2 Lymph # (Auto) 0.5 L [place] # (Auto) 1.1 Eos # (Auto) 0.0 Baso # (Auto) 0.0 Abs Immat Gran (auto) 0.06 H Absolute Neuts (auto) 10.9 H Absolute Nucleated RBC 0.000 Nucleated RBC % (auto) 0.0 PT INR VBG pH VBG pCO2 VBG pO2 VBG HCO3 VBG O2 Saturation VBG Base Excess Anion Gap 21 H Estim Creat Clear Calc 13.4 Estimated GFR 13 POC Glucose Random Glucose 170 H D Lactic Acid Calcium 8.8 Magnesium 2.2 Total Bilirubin 1.5 H Direct Bilirubin 0.7 H AST 18 ALT 11 Alkaline Phosphatase 77 D B-Natriuretic Peptide Total Protein 7.1 D Albumin 3.2 L Lipase 24 Urine Color Yellow Urine Appearance Turbid Urine pH 7.0 Ur Specific [place] 1.015 Urine Protein 100 (2+) H Urine Glucose (UA) Negative Urine Ketones Negative Urine Blood Moderate (2+) H Urine Nitrite Negative Ur Leukocyte Esterase Large (3+) H Urine RBC 0-2 Urine WBC >50 H Urine WBC Clumps Present Ur Squamous Epith Cells 0-2 Urine Bacteria 4+ Hyaline Casts 3-5 COVID-19 (CRISTIAN) COVID-19 Clin Com 12/12/21 12/12/21 12/12/21 15:44 15:44 15:44 MCV MCH MCHC RDW Plt Count MPV Immature Gran % (Auto) Neut % (Auto) Lymph % (Auto) [place] % (Auto) Eos % (Auto) Baso % (Auto) Lymph # (Auto) [place] # (Auto) Eos # (Auto) Baso # (Auto) Abs Immat Gran (auto) Absolute Neuts (auto) Absolute Nucleated RBC Nucleated RBC % (auto) PT INR VBG pH VBG pCO2 VBG pO2 VBG HCO3 VBG O2 Saturation VBG Base Excess Anion Gap Estim Creat Clear Calc Estimated GFR POC Glucose Random Glucose Lactic Acid 1.4 Calcium Magnesium Total Bilirubin Direct Bilirubin AST ALT Alkaline Phosphatase B-Natriuretic Peptide 47 Total Protein Albumin Lipase Urine Color Urine Appearance Urine pH Ur Specific [place] Urine Protein Urine Glucose (UA) Urine Ketones Urine Blood Urine Nitrite Ur Leukocyte Esterase Urine RBC Urine WBC Urine WBC Clumps Ur Squamous Epith Cells Urine Bacteria Hyaline Casts COVID-19 ([facility]ISTIAN) Negative COVID-19 Clin Com See Note 12/12/21 12/12/21 12/12/21 15:44 17:26 17:53 MCV MCH MCHC RDW Plt Count MPV Immature Gran % (Auto) Neut % (Auto) Lymph % (Auto) [place] % (Auto) Eos % (Auto) Baso % (Auto) Lymph # (Auto) [place] # (Auto) Eos # (Auto) Baso # (Auto) Abs Immat Gran (auto) Absolute Neuts (auto) Absolute Nucleated RBC Nucleated RBC % (auto) PT 16.4 H INR 1.4 H VBG pH 7.43 VBG pCO2 28 VBG pO2 65 VBG HCO3 19 L VBG O2 Saturation 89.0 VBG Base Excess -4.1 Anion Gap Estim Creat Clear Calc Estimated GFR POC Glucose Random Glucose Lactic Acid Calcium Magnesium Total Bilirubin Direct Bilirubin AST ALT Alkaline Phosphatase B-Natriuretic Peptide Total Protein Albumin Lipase Urine Color Yellow Urine Appearance Turbid Urine pH 6.0 Ur Specific [place] >= 1.030 H Urine Protein 300 (3+) H Urine Glucose (UA) Negative Urine Ketones 15 Urine Blood Large (3+) H Urine Nitrite Negative Ur Leukocyte Esterase Large (3+) H Urine RBC >20 H Urine WBC >50 Urine WBC Clumps Ur Squamous Epith Cells 0-2 Urine Bacteria 3+ Hyaline Casts 0-2 COVID-19 (CRISTIAN) COVID-19 [employer] 12/12/21 12/13/21 12/13/21 21:47 00:46 00:46 MCV MCH MCHC RDW Plt Count MPV Immature Gran % (Auto) Neut % (Auto) Lymph % (Auto) [place] % (Auto) Eos % (Auto) Baso % (Auto) Lymph # (Auto) [place] # (Auto) Eos # (Auto) Baso # (Auto) Abs Immat Gran (auto) Absolute Neuts (auto) Absolute Nucleated RBC Nucleated RBC % (auto) PT INR VBG pH VBG pCO2 VBG pO2 VBG HCO3 VBG O2 Saturation VBG Base Excess Anion Gap 14 Estim Creat Clear Calc 16.5 Estimated GFR 17 POC Glucose Random Glucose 114 Lactic Acid 0.9 0.7 Calcium 7.7 L D Magnesium Total Bilirubin Direct Bilirubin AST ALT Alkaline Phosphatase B-Natriuretic Peptide Total Protein Albumin Lipase Urine Color Urine Appearance Urine pH Ur Specific [place] Urine Protein Urine Glucose (UA) Urine Ketones Urine Blood Urine Nitrite Ur Leukocyte Esterase Urine RBC Urine WBC Urine WBC Clumps Ur Squamous Epith Cells Urine Bacteria Hyaline Casts COVID-19 (CRISTIAN) COVID-19 [employer] Com 12/13/21 12/13/21 12/13/21 00:46 00:46 06:22 MCV 90.4 MCH 29.5 MCHC 32.7 RDW 15.5 Plt Count 165 D MPV 9.1 L Immature Gran % (Auto) 0.6 H Neut % (Auto) 85.9 H Lymph % (Auto) 3.4 L [place] % (Auto) 9.5 Eos % (Auto) 0.4 Baso % (Auto) 0.2 Lymph # (Auto) 0.4 L [place] # (Auto) 1.0 Eos # (Auto) 0.0 Baso # (Auto) 0.0 Abs Immat Gran (auto) 0.07 H Absolute Neuts (auto) 9.4 H Absolute Nucleated RBC 0.000 Nucleated RBC % (auto) 0.0 PT INR VBG pH VBG pCO2 VBG pO2 VBG HCO3 VBG O2 Saturation VBG Base Excess Anion Gap Estim Creat Clear Calc Estimated GFR POC Glucose Random Glucose Lactic Acid Calcium Magnesium Total Bilirubin Direct Bilirubin AST ALT Alkaline Phosphatase B-Natriuretic Peptide 91 228 H Total Protein Albumin Lipase Urine Color Urine Appearance Urine pH Ur Specific [place] Urine Protein Urine Glucose (UA) Urine Ketones Urine Blood Urine Nitrite Ur Leukocyte Esterase Urine RBC Urine WBC Urine WBC Clumps Ur Squamous Epith Cells Urine Bacteria Hyaline Casts COVID-19 (CRISTIAN) COVID-19 Clin Com 12/13/21 12/13/21 12/13/21 06:22 06:22 12:23 MCV 90.9 MCH 29.7 MCHC 32.7 RDW 15.8 Plt Count 177 MPV 9.2 L Immature Gran % (Auto) 0.7 H Neut % (Auto) 86.3 H Lymph % (Auto) 4.1 L [place] % (Auto) 8.2 Eos % (Auto) 0.5 Baso % (Auto) 0.2 Lymph # (Auto) 0.5 L [place] # (Auto) 1.0 Eos # (Auto) 0.1 Baso # (Auto) 0.0 Abs Immat Gran (auto) 0.09 H Absolute Neuts (auto) 10.6 H Absolute Nucleated RBC 0.000 Nucleated RBC % (auto) 0.0 PT INR VBG pH VBG pCO2 VBG pO2 VBG HCO3 VBG O2 Saturation VBG Base Excess Anion Gap 15 Estim Creat Clear Calc 17.3 Estimated GFR 18 POC Glucose 94 Random Glucose 110 Lactic Acid Calcium 7.8 L Magnesium Total Bilirubin Direct Bilirubin AST ALT Alkaline Phosphatase B-Natriuretic Peptide Total Protein Albumin Lipase Urine Color Urine Appearance Urine pH Ur Specific [place] Urine Protein Urine Glucose (UA) Urine Ketones Urine Blood Urine Nitrite Ur Leukocyte Esterase Urine RBC Urine WBC Urine WBC Clumps Ur Squamous Epith Cells Urine Bacteria Hyaline Casts COVID-19 (CRISTIAN) COVID-19 Clin Com Microbiology Microbiology Results: Microbiology 12/12/21 15:45 Blood Culture - Preliminary Blood - Venous Prelim: GNR Gram Stain only 12/12/21 15:45 Blood Culture - Preliminary Blood - Venous Prelim: GNR Gram Stain only 12/12/21 15:32 Urine Culture - Preliminary Urine clean catch - Urine chung top Culture in progress. 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 Patient received 30 cc/kilos in ER as well as albumin follow-up cultures Suprapubic catheter now draining Follow-up Urology Continue Zosyn Monitor BMP Chronic heart failure with reduced ejection fraction due to coronary disease Monitor for fluid overload Continue dual antiplatelet and statin Hypertension Lisinopril and terazosin on hold for hypotension DVT prophylaxis with heparin DNR/DNI reason for continued hospitalization:hypotensive, awaiting defernescence Quality Stroke Does the patient have a stroke diagnosis?: No VTE Prior VTE?: Yes VTE Risk Level:: Medical - moderate - high VTE Device Contraindication: Treatment Not Indicated VTE Drug Contraindication: N/A - Med Ordered
--- NOTE | 2021-12-13 15:26 | PC.NURSE ---
Pt Blood pressure dropped to 88/41 in supine position. Pt in [place] position with a blood pressure of 100/45. Albumin infusion completed. Partner at bedside.
--- NOTE | 2021-12-13 17:33 | PC.NURSE ---
Pt is A and O X 3. Blood pressure 128/58 on the left upper arm in supine. No dizziness, no lightheadedness. Vital stable.
--- NOTE | 2021-12-13 19:34 | PC.NURSE ---
Pt temperature went up to 101.7. Complains of nausea. Tylenol was administered.
[2021-12-13] MEDS: Atorvastatin Calcium 40 MG TABLET PO (20:24)
--- NOTE | 2021-12-13 20:29 | PC.NURSE ---
Pt temp at 101.8 after Tylenol administered. Cold packs placed under both arms and foot.
[2021-12-13 21:18] LABS: Glucose, Whole Blood 99 mg/dL (60-115)
[2021-12-14] MEDS: Piperacillin Sodium/Tazobactam 2.25 GM in 0.9 % Sodium Chloride 50 ML IV ×3 (00:50→17:54)
[2021-12-14] MEDS: 0.9 % Sodium Chloride Flush 3 ML SYRINGE IVFLUSH ×5 (01:02→20:53)
[2021-12-14 03:27] VITALS: BP 113/63; PULSE 74; RESP 16; TEMP 36.9; O2SAT 98
[2021-12-14 08:00] VITALS: BP 116/57; PULSE 82; RESP 20; TEMP 37; O2SAT 96
[2021-12-14 08:27] LABS: Hematocrit 23.8 % (42.0-52.0); Hemoglobin 7.7 g/dl (14.0-18.0); Mean Corpuscular HGB Conc 32.4 g/dl (31.0-36.0); Mean Corpuscular Hemoglobin 29.2 pg (27.0-33.0); Mean Corpuscular Volume 90.2 fL (80.0-98.0); Mean Platelet Volume 9.4 fL (9.4-12.4); Platelet Count 192 X10*3/uL (160-400); Red Blood Count 2.64 X10*6/uL (4.60-5.80); Red Cell Distribution Width 15.9 % (11.0-16.0); White Blood Count 8.6 X10*3/uL (4.8-10.8)
[2021-12-14 09:40] LABS: Blood Urea Nitrogen 61 mg/dL (9-16); Calcium 7.4 mg/dL (8.4-10.2); Creatinine Clr Calc Pharmacy 21.7; Estimated Glomerular Filt Rate 22; Glucose Fasting 101 mg/dL (60-99)
[2021-12-14 10:06] LABS: Anion Gap 18 (12-20); Carbon Dioxide 14 mmol/L (22-29); Chloride 115 mmol/L (96-108); Potassium 3.4 mmol/L (3.3-5.1); Sodium 144 mmol/L (135-145)
[2021-12-14] MEDS: Heparin Sodium,Porcine 5,000 UNIT/ML VIAL 5000 UNIT SUBCUT ×2 (10:10→20:47)
[2021-12-14] MEDS: Finasteride 5 MG TABLET PO (10:15)
[2021-12-14] MEDS: Aspirin Enteric Coated 81 MG TABLET.DR PO (10:15)
[2021-12-14] MEDS: Ticagrelor 90 MG TABLET PO ×2 (10:15→20:47)
--- NOTE | 2021-12-14 11:03 | P.PNIM_ITS ---
Subjective Subjective Date of Service: 12/14/21 Interval History: cc: suprapubic pain, non draingin catheter interval history: now draining, more alert Cardiovascular Cardiovascular: Reports no additional cardiovascular complaints Respiratory Respiratory: Reports no additional respiratory complaints Physical Exam Vital Signs: Vital Signs: Last Vital Signs Temp 98.6 F 12/14/21 08:00 Pulse 82 12/14/21 08:00 Resp 20 12/14/21 08:00 BP 116/57 L 12/14/21 08:00 Pulse Ox 96 12/14/21 08:00 O2 Del Method 12/14/21 08:00 BMI result Body Mass Index 22.3 General: more alert, ill appearing, no acute distress Resp: CTA bilateral, no accessory muscles used CVS: S1,S2,RRR GI: soft, non tender, non distended, suprapubic in place Neuro: motor grossly intact, alert Psych: appropriate affect, appropriate insight Objective Data Active Medications Acetaminophen (Acetaminophen 325 Mg Tablet) 650 mg PO Q6H PRN PRN Reason: Pain, Mild (Pain Scale 1-3) Last Admin: 12/13/21 19:16 Dose: 650 mg Documented By: AMY Aspirin (Aspirin Enteric Coated 81 Mg Tablet.) 81 mg PO DAILY [facility] Last Admin: 12/14/21 10:15 Dose: 81 mg Documented By: OSIEL Atorvastatin Calcium (Atorvastatin Calcium 40 Mg Tablet) 40 mg PO BEDTIME [facility] Last Admin: 12/13/21 20:24 Dose: 40 mg Documented By: NIESHA Docusate Sodium (Docusate Sodium 100 Mg Capsule) 100 mg PO BID PRN PRN Reason: Constipation Last Admin: 12/13/21 09:35 Dose: 100 mg Documented By: HAYDER Doxazosin Mesylate (Doxazosin Mesylate 2 Mg Tablet) 4 mg PO BEDTIME [facility] Last Admin: 12/13/21 20:23 Dose: Not Given Documented By: NIESHA Non-Admin Reason: Decreased Blood Pressure Finasteride (Finasteride 5 Mg Tablet) 5 mg PO DAILY [facility] Last Admin: 12/14/21 10:15 Dose: 5 mg Documented By: OSIEL Heparin Sodium (Porcine) (Heparin Sodium,Porcine 5,000 Unit/Ml Vial) 5,000 unit SUBCUT Q12H [facility] Last Admin: 12/14/21 10:10 Dose: 5,000 unit Documented By: OSIEL Piperacillin Sod/Tazobactam (Sod 2.25 gm/ Sodium Chloride) 50 mls @ 100 mls/hr IV Q8H [facility] Last Admin: 12/14/21 10:15 Dose: 100 mls/hr Documented By: OSIEL Ondansetron HCl (Ondansetron Hcl 4 Mg/2 Ml Vial) 4 mg IVPUSH Q8H PRN PRN Reason: Nausea and Vomiting Pharmacy Consult (Consult Rx Vancomycin Dosing) 1 each MISCELLANE DAILY PRN PRN Reason: Consult order Sodium Chloride (0.9 % Sodium Chloride Flush 3 Ml Syringe) 3 ml IVFLUSH QSHIFT [facility] Last Admin: 12/14/21 10:09 Dose: 3 ml Documented By: OSIEL Ticagrelor (Ticagrelor 90 Mg Tablet) 90 mg PO BID [facility] Last Admin: 12/14/21 10:15 Dose: 90 mg Documented By: OSIEL Labs CBC & Chem 7: 12/14/21 08:00 12/14/21 08:00 Labs: Laboratory Results - last 24 hr 12/13/21 12/13/21 12/14/21 12:23 21:12 08:00 MCV 90.2 MCH 29.2 MCHC 32.4 RDW 15.9 Plt Count 192 MPV 9.4 Absolute Nucleated RBC 0.000 Nucleated RBC % (auto) 0.0 Anion Gap Estim Creat Clear Calc Estimated GFR POC Glucose 94 99 Fasting Glucose Calcium 12/14/21 08:00 MCV MCH MCHC RDW Plt Count MPV Absolute Nucleated RBC Nucleated RBC % (auto) Anion Gap 18 Estim Creat Clear Calc 21.7 Estimated GFR 22 POC Glucose Fasting Glucose 101 H D Calcium 7.4 L Microbiology Microbiology Results: Microbiology 12/12/21 15:45 Blood Culture - Preliminary Blood - Venous Gram negative larissa 12/12/21 15:45 Blood Culture - Preliminary Blood - Venous Gram negative larissa 12/12/21 15:32 Urine Culture - Preliminary Urine clean catch - Urine chung top Gram negative larissa Gram positive cocci Assessment and Plan (1) Sepsis secondary to UTI: Status: Acute Plan 81M pmh of recurrent uti, 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 Patient received 30 cc/kilos in ER as well as albumin in ED bp and mentation improved follow-up cultures Suprapubic catheter now draining Follow-up Urology Continue Zosyn Monitor BMP meatbolic acidosis start iv bicarb, monitor bmp Chronic heart failure with reduced ejection fraction due to coronary disease Monitor for fluid overload Continue dual antiplatelet and statin Hypertension Lisinopril and terazosin on hold for hypotension DVT prophylaxis with heparin DNR/DNI reason for continued hospitalization: awaiting defernescence Quality Stroke Does the patient have a stroke diagnosis?: No VTE Prior VTE?: Yes VTE Risk Level:: Medical - moderate - high VTE Device Contraindication: Treatment Not Indicated VTE Drug Contraindication: N/A - Med Ordered
[2021-12-14 11:37] VITALS: BP 130/63; PULSE 81; RESP 20; TEMP 36.7; O2SAT 97
[2021-12-14] MEDS: Sodium Bicarbonate 8.4% 150 MEQ in Dextrose 5 % 850 ML 50 MEQ IV (13:06)
--- NOTE | 2021-12-14 13:39 | P.CNUR_ITS ---
History of Present Illness Consult details Consult date: 12/13/21 Narrative: Consulting complaint malposition of suprapubic tube Festus was seen in the emergency room - due to suprapubic pain and blocked urinary catheter (last replaced Nov 08) not draining for at least 72 hours Catheter reposition emergency room after CT scan showed balloon had been inflated in his prostate Draining well No hematuria Review of Systems Constitutional: Constitutional: Denies chills and Denies fever(s) Cardiovascular: Cardiovascular: Reports no additional cardiovascular complaints and Denies syncope Respiratory: Respiratory: Denies cough Gastrointestinal: Gastrointestinal: Denies abdominal pain and Denies heartburn Genitourinary: Genitourinary: Reports as per HPI and Denies change in libido Neurologic: Denies syncope Psychiatric: Psychiatric: Denies change in libido Endocrine: Endocrine: Denies change in libido [facility] Past Medical History Medical History Accelerated essential hypertension 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 Mother No problems noted. Surgical History Surgical History History of surgery Social History Social History Household Members: Friend(s) Housing: House Do you presently have visiting nurse or other home services: No Patient Tobacco Use Status: Never used Tobacco e-Cigarette/Vaping Use: Never Used Second Hand Smoke Exposure: No Advance Directives Date on File: 09/21/21 service: No Current occupational status: unemployed and retired Meds Allergies Allergy/AdvReac Type Severity Reaction Status Date / Time No Known Allergies Allergy Verified 10/25/21 08:15 Active Medications: Current Medications Acetaminophen (Acetaminophen 325 Mg Tablet) 650 mg PO Q6H PRN PRN Reason: Pain, Mild (Pain Scale 1-3) Last Admin: 12/13/21 19:16 Dose: 650 mg Aspirin (Aspirin Enteric Coated 81 Mg Tablet.) 81 mg PO DAILY [facility] Last Admin: 12/14/21 10:15 Dose: 81 mg Atorvastatin Calcium (Atorvastatin Calcium 40 Mg Tablet) 40 mg PO BEDTIME [facility] Last Admin: 12/13/21 20:24 Dose: 40 mg Docusate Sodium (Docusate Sodium 100 Mg Capsule) 100 mg PO BID PRN PRN Reason: Constipation Last Admin: 12/13/21 09:35 Dose: 100 mg Doxazosin Mesylate (Doxazosin Mesylate 2 Mg Tablet) 4 mg PO BEDTIME [facility] Last Admin: 12/13/21 20:23 Dose: Not Given Finasteride (Finasteride 5 Mg Tablet) 5 mg PO DAILY [facility] Last Admin: 12/14/21 10:15 Dose: 5 mg Heparin Sodium (Porcine) (Heparin Sodium,Porcine 5,000 Unit/Ml Vial) 5,000 unit SUBCUT Q12H [facility] Last Admin: 12/14/21 10:10 Dose: 5,000 unit Piperacillin Sod/Tazobactam (Sod 2.25 gm/ Sodium Chloride) 50 mls @ 100 mls/hr IV Q8H [facility] Last Infusion: 12/14/21 12:12 Dose: Infused Sodium Bicarbonate 150 meq/ (Dextrose) 1,000 mls @ 50 mls/hr IV .Q20H [facility] Stop: 12/15/21 11:14 Last Admin: 12/14/21 13:06 Dose: 50 mls/hr Ondansetron HCl (Ondansetron Hcl 4 Mg/2 Ml Vial) 4 mg IVPUSH Q8H PRN PRN Reason: Nausea and Vomiting Pharmacy Consult (Consult Rx Vancomycin Dosing) 1 each MISCELLANE DAILY PRN PRN Reason: Consult order Sodium Chloride (0.9 % Sodium Chloride Flush 3 Ml Syringe) 3 ml IVFLUSH QSHIFT [facility] Last Admin: 12/14/21 10:09 Dose: 3 ml Ticagrelor (Ticagrelor 90 Mg Tablet) 90 mg PO BID [facility] Last Admin: 12/14/21 10:15 Dose: 90 mg Home Medications Medication Instructions Recorded Confirmed Last Taken Type aspirin 81 mg tablet,delayed 81 mg PO DAILY 12/12/21 12/12/21 12/12/21 History release lisinopril 5 mg tablet 5 mg PO DAILY 12/12/21 12/12/21 12/12/21 History rosuvastatin 10 mg tablet 1 tab PO BEDTIME 12/12/21 12/12/21 12/11/21 History ticagrelor 90 mg tablet 90 mg PO BID 12/12/21 12/12/21 12/12/21 History Physical Exam Vital Signs: Vital Signs: Last Vital Signs Temp 98.0 F 12/14/21 11:37 Pulse 81 12/14/21 11:37 Resp 20 12/14/21 11:37 BP 130/63 12/14/21 11:37 Pulse Ox 97 12/14/21 11:37 O2 Del Method 12/14/21 11:37 BMI result Body Mass Index 22.3 Const: General: cooperative, healthy appearing, comfortable and no acute distress Orientation/consciousness: patient oriented x3 HEENT: Face and sinus: Yes normal facial exam Mouth: moist mucous membranes Neck: Neck: Yes normal visual inspection, Yes full ROM and Yes trachea midline Chest: Chest palpation & inspection: normal inspection of the chest Resp: Effort & Inspection: normal respiratory effort, able to speak in complete sentences and no respiratory distress GI: Inspection: Yes normal to inspection Back/Spine/Pelvis: Cervical Spine: normal cervical lordosis Thoracic/Lumbar Spine: thoracic and lumbar spine normal to inspection Skin: General skin exam: no rashes or lesions noted Neuro: General: patient oriented x3, gait normal, tone normal and moves all extremities Extrem: General: Yes normal to inspection and Yes capillary refill normal Results Labs Result diagrams: 12/14/21 08:00 12/14/21 08:00 Labs: Abnormal lab results 12/14/21 12/14/21 Range/Units 08:00 08:00 RBC 2.64 L (4.60-5.80) X10*6/uL Hgb 7.7 L (14.0-18.0) g/dl Hct 23.8 L (42.0-52.0) % Chloride 115 H (96-108) mmol/L Carbon Dioxide 14 L (22-29) mmol/L BUN 61 H (9-16) mg/dL Creatinine 2.81 H (0.5-1.4) mg/dL Fasting Glucose 101 H D (60-99) mg/dL Calcium 7.4 L (8.4-10.2) mg/dL Short CBC 12/14/21 Range/Units 08:00 WBC 8.6 (4.8-10.8) X10*3/uL Hgb 7.7 L (14.0-18.0) g/dl Hct 23.8 L (42.0-52.0) % Plt Count 192 (160-400) X10*3/uL BMP 12/14/21 08:00 Sodium 144 Potassium 3.4 D Chloride 115 H Carbon Dioxide 14 L BUN 61 H Creatinine 2.81 H Calcium 7.4 L Urine 12/12/21 12/12/21 Range/Units 15:32 17:26 Urine Color Yellow Yellow Urine Appearance Turbid Turbid Urine pH 7.0 6.0 (5.0-9.0) Ur Specific [place] 1.015 >= 1.030 H (1.005-1.025) Urine Protein 100 (2+) H 300 (3+) H (Neg-Trace) mg/dL Urine Glucose (UA) Negative Negative (Negative) mg/dL All other labs normal. Assessment and Plan (1) Sepsis secondary to UTI: Status: Acute Plan Stable Will be treated for presumed concurrent UTI Procedures Date of Service Date of Service: 12/13/21
[2021-12-14 15:28] VITALS: BP 117/55; PULSE 73; RESP 14; TEMP 36.8; O2SAT 96
[2021-12-14 19:58] VITALS: BP 135/64; PULSE 80; RESP 18; TEMP 37.3; O2SAT 97
[2021-12-14] MEDS: Doxazosin Mesylate 2 MG TABLET 4 MG PO (20:47)
[2021-12-14] MEDS: Atorvastatin Calcium 40 MG TABLET PO (20:47)
[2021-12-15] VITALS: BP 122/60; PULSE 71; RESP 20; TEMP 37.2; O2SAT 96
[2021-12-15] MEDS: Piperacillin Sodium/Tazobactam 2.25 GM in 0.9 % Sodium Chloride 50 ML IV ×2 (01:27→09:12)
[2021-12-15 04:00] VITALS: BP 138/67; PULSE 67; RESP 20; TEMP 36.7; O2SAT 97
[2021-12-15 06:50] LABS: Hematocrit 22.6 % (42.0-52.0); Hemoglobin 7.4 g/dl (14.0-18.0); Mean Corpuscular HGB Conc 32.7 g/dl (31.0-36.0); Mean Corpuscular Hemoglobin 29.1 pg (27.0-33.0); Mean Platelet Volume 9.4 fL (9.4-12.4); Platelet Count 208 X10*3/uL (160-400); Red Blood Count 2.54 X10*6/uL (4.60-5.80); Red Cell Distribution Width 15.7 % (11.0-16.0); White Blood Count 7.4 X10*3/uL (4.8-10.8)
[2021-12-15 07:10] LABS: Blood Urea Nitrogen 47 mg/dL (9-16); Calcium 7.8 mg/dL (8.4-10.2); Creatinine Clr Calc Pharmacy 23.6; Estimated Glomerular Filt Rate 24; Glucose Fasting 173 mg/dL (60-99)
[2021-12-15 07:27] LABS: Anion Gap 16 (12-20); Carbon Dioxide 19 mmol/L (22-29); Chloride 111 mmol/L (96-108); Potassium 2.9 mmol/L (3.3-5.1); Sodium 143 mmol/L (135-145)
[2021-12-15 07:40] VITALS: BP 126/58; PULSE 70; RESP 18; TEMP 36.9; O2SAT 97
[2021-12-15] MEDS: Sodium Bicarbonate 8.4% 150 MEQ in Dextrose 5 % 850 ML 50 MEQ IV (09:05)
[2021-12-15] MEDS: Heparin Sodium,Porcine 5,000 UNIT/ML VIAL 5000 UNIT SUBCUT ×2 (09:09→20:17)
[2021-12-15] MEDS: Aspirin Enteric Coated 81 MG TABLET.DR PO (09:11)
[2021-12-15] MEDS: Ticagrelor 90 MG TABLET PO ×2 (09:11→20:17)
[2021-12-15] MEDS: Finasteride 5 MG TABLET PO (09:12)
--- NOTE | 2021-12-15 11:45 | MHC.CM.PN ---
Per ROUNDS discussion, Patient needs to be seen by ID and is not yet medically cleared for dc. PT rec ?LTC VS STR and CM will continue to follow.
[2021-12-15 12:00] VITALS: BP 109/56; PULSE 71; RESP 20; TEMP 35.7; O2SAT 93
--- NOTE | 2021-12-15 12:59 | HO.PM.IMPN ---
Subjective Subjective Date of Service: 12/15/21 Interval History: cc: suprapubic pain, non draingin catheter interval history: now draining, more alert Cardiovascular Cardiovascular: Reports no additional cardiovascular complaints Respiratory Respiratory: Reports no additional respiratory complaints Physical Exam Vital Signs: Vital Signs: Last Vital Signs Temp 96.2 F L 12/15/21 12:00 Pulse 71 12/15/21 12:00 Resp 20 12/15/21 12:00 BP 109/56 L 12/15/21 12:00 Pulse Ox 93 12/15/21 12:00 O2 Del Method 12/15/21 12:00 BMI result Body Mass Index 22.3 Const: General: cooperative, healthy appearing, comfortable and no acute distress Orientation/consciousness: patient oriented x3 HEENT: Face and sinus: Yes normal facial exam Mouth: moist mucous membranes Neck: Neck: Yes normal visual inspection, Yes full ROM and Yes trachea midline Chest: Chest palpation & inspection: normal inspection of the chest Resp: Effort & Inspection: normal respiratory effort, able to speak in complete sentences and no respiratory distress GI: Inspection: Yes normal to inspection Back/Spine/Pelvis: Cervical Spine: normal cervical lordosis Thoracic/Lumbar Spine: thoracic and lumbar spine normal to inspection Skin: General skin exam: no rashes or lesions noted Neuro: General: patient oriented x3, gait normal, tone normal and moves all extremities Extrem: General: Yes normal to inspection and Yes capillary refill normal Objective Data Active Medications Acetaminophen (Acetaminophen 325 Mg Tablet) 650 mg PO Q6H PRN PRN Reason: Pain, Mild (Pain Scale 1-3) Last Admin: 12/13/21 19:16 Dose: 650 mg Documented By: AMY Aspirin (Aspirin Enteric Coated 81 Mg Tablet.Dr) 81 mg PO DAILY [facility] Last Admin: 12/15/21 09:11 Dose: 81 mg Documented By: CTORRZ Atorvastatin Calcium (Atorvastatin Calcium 40 Mg Tablet) 40 mg PO BEDTIME [facility] Last Admin: 12/14/21 20:47 Dose: 40 mg Documented By: DESROAnjali Docusate Sodium (Docusate Sodium 100 Mg Capsule) 100 mg PO BID PRN PRN Reason: Constipation Last Admin: 12/13/21 09:35 Dose: 100 mg Documented By: SCOC Doxazosin Mesylate (Doxazosin Mesylate 2 Mg Tablet) 4 mg PO BEDTIME [facility] Last Admin: 12/14/21 20:47 Dose: 4 mg Documented By: ALDO Finasteride (Finasteride 5 Mg Tablet) 5 mg PO DAILY [facility] Last Admin: 12/15/21 09:12 Dose: 5 mg Documented By: OSIEL Heparin Sodium (Porcine) (Heparin Sodium,Porcine 5,000 Unit/Ml Vial) 5,000 unit SUBCUT Q12H [facility] Last Admin: 12/15/21 09:09 Dose: 5,000 unit Documented By: OSIEL Levofloxacin (Levofloxacin 500 Mg Tablet) 500 mg PO Q24H [facility] Ondansetron HCl (Ondansetron Hcl 4 Mg/2 Ml Vial) 4 mg IVPUSH Q8H PRN PRN Reason: Nausea and Vomiting Pharmacy Consult (Consult Rx Vancomycin Dosing) 1 each MISCELLANE DAILY PRN PRN Reason: Consult order Sodium Chloride (0.9 % Sodium Chloride Flush 3 Ml Syringe) 3 ml IVFLUSH QSHIFT [facility] Last Admin: 12/14/21 20:53 Dose: 3 ml Documented By: ALDO Ticagrelor (Ticagrelor 90 Mg Tablet) 90 mg PO BID [facility] Last Admin: 12/15/21 09:11 Dose: 90 mg Documented By: OSIEL Labs CBC & Chem 7: 12/15/21 05:57 12/15/21 05:57 Labs: Laboratory Results - last 24 hr 12/15/21 12/15/21 05:57 05:57 MCV 89.0 MCH 29.1 MCHC 32.7 RDW 15.7 Plt Count 208 MPV 9.4 Absolute Nucleated RBC 0.000 Nucleated RBC % (auto) 0.0 Anion Gap 16 Estim Creat Clear Calc 23.6 Estimated GFR 24 Fasting Glucose 173 H D Calcium 7.8 L Microbiology Microbiology Results: Microbiology 12/12/21 15:32 Urine Culture - Final Urine clean catch - Urine chung top Pseudomonas aeruginosa Enterococcus faecalis 12/12/21 15:45 Blood Culture - Final Blood - Venous Pseudomonas aeruginosa 12/12/21 15:45 Blood Culture - Final Blood - Venous Pseudomonas aeruginosa Assessment and Plan (1) Sepsis secondary to UTI: Status: Acute Plan 81M pmh of recurrent uti, 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
[2021-12-15] MEDS: Potassium Chloride ER 20 MEQ TAB.ER.PRT 40 MEQ PO (14:16)
[2021-12-15] MEDS: levoFLOXacin 500 MG TABLET PO (14:16)
[2021-12-15 15:46] VITALS: BP 128/65; PULSE 74; RESP 16; TEMP 37.3; O2SAT 95
[2021-12-15] MEDS: 0.9 % Sodium Chloride Flush 3 ML SYRINGE IVFLUSH ×2 (17:45→20:22)
--- NOTE | 2021-12-15 18:47 | MHC.SL.SWA ---
Addendum entered and electronically signed by Anjelica Davis MA, [facility]-YARD SPECIALIST 12/15/21 19:08: D.S. Original Note: Risk of Aspiration Due to: Poor PO Intake Weak Voice Dysphasia Diet Status: Downgrade liquids and solids Liquid Consistency and Strategies for Safe Swallow: Liquid Intake Recommendation: [place] Thick Liquid Intake Strategies: Small Sips No Straws Double Swallow Solid Food Consistency: Dietary Recommendations: Grnd/Mech Altered (NDD2) Additional Modifications to Solid Foods: Oral Medication Intake: Crushed with Puree Please contact the pharmacy regarding appropriate crushable or liquid drug formulations that are available whenever modified delivery is recommended. Compensatory Strategies and Precautions to be Taken for Safe Swallow: Sitting Upright (90 deg) No Straw Small Bites and Sips Alternate Liquids/Solids Supervision While Eating and Drinking for Safe Swallow: Total Supervision (1:1) to encourage pt to take PO Swallowing Recommended Treatments: Compens. Strategy Educat. Recommendation for Speech: Inpatient Speech Therapy Comment: Pt seen for bedside swallow eval. Pt presents w/ reduced oral-facial strength including reduced lingual strength to right side. Pt missing majority of teeth.Pt reports of food not tasting right. YARD SPECIALIST provided oral care. Recommend pt DOWNGRADE to GROUND/MECH ALTERED (NDD2) and NECTAR THICK liquids. Pills CRUSHED in PUREE. Pt refusing majority of PO, expressing disinterest in taste of food, needs to be encouraged to eat. Pt should be cued to swallow again if change in vocal quality is observed during PO. Recommend 1:1 supervision during mealtime to encourage PO intake. Recommend oral care provided to pt. YARD SPECIALIST to continue to follow. Update sent to RN, RD, and MD via [employer]. Rail Signal Designer Clinican/Clinical Fellow: Yes: Hanna Salazar M.A., [facility]-YARD SPECIALIST Supervisory Statement: I have reviewed and agree with the student/clinical fellow's documentation: Speech Language Pathologist:
[2021-12-15 19:02] VITALS: BP 154/71; PULSE 70; RESP 18; TEMP 37.3; O2SAT 97
[2021-12-15] MEDS: Doxazosin Mesylate 2 MG TABLET 4 MG PO (20:17)
[2021-12-15] MEDS: Atorvastatin Calcium 40 MG TABLET PO (20:18)
[2021-12-16] VITALS (7 sets, daily range): BP systolic 131–150; BP diastolic 63–75; PULSE 62–73; RESP 16–20; TEMP 36.2–37.5; O2SAT 92–97
[2021-12-16 06:43] LABS: Hematocrit 23.4 % (42.0-52.0); Hemoglobin 7.6 g/dl (14.0-18.0); Mean Corpuscular HGB Conc 32.5 g/dl (31.0-36.0); Mean Corpuscular Hemoglobin 28.9 pg (27.0-33.0); Mean Platelet Volume 9.3 fL (9.4-12.4); Platelet Count 220 X10*3/uL (160-400); Red Blood Count 2.63 X10*6/uL (4.60-5.80); Red Cell Distribution Width 15.6 % (11.0-16.0); White Blood Count 5.6 X10*3/uL (4.8-10.8)
[2021-12-16 07:25] LABS: Anion Gap 14 (12-20); Blood Urea Nitrogen 36 mg/dL (9-16); Carbon Dioxide 24 mmol/L (22-29); Chloride 111 mmol/L (96-108); Creatinine Clr Calc Pharmacy 25.1; Estimated Glomerular Filt Rate 26; Glucose Fasting 129 mg/dL (60-99); Potassium 3.1 mmol/L (3.3-5.1); Sodium 146 mmol/L (135-145)
[2021-12-16] MEDS: Heparin Sodium,Porcine 5,000 UNIT/ML VIAL 5000 UNIT SUBCUT ×2 (09:02→20:13)
[2021-12-16] MEDS: Ticagrelor 90 MG TABLET PO ×2 (09:03→20:05)
[2021-12-16] MEDS: Aspirin Enteric Coated 81 MG TABLET.DR PO (09:03)
[2021-12-16] MEDS: 0.9 % Sodium Chloride Flush 3 ML SYRINGE IVFLUSH ×2 (09:03→20:05)
[2021-12-16] MEDS: Finasteride 5 MG TABLET PO (09:03)
--- NOTE | 2021-12-16 10:35 | HO.PM.IMPN ---
Subjective Subjective Date of Service: 12/16/21 Interval History: cc: suprapubic pain, non draingin catheter interval history: now draining, more alert Cardiovascular Cardiovascular: Reports no additional cardiovascular complaints Respiratory Respiratory: Reports no additional respiratory complaints Physical Exam Vital Signs: Vital Signs: Last Vital Signs Temp 98.9 F 12/16/21 07:11 Pulse 68 12/16/21 07:11 Resp 18 12/16/21 07:11 BP 142/75 H 12/16/21 07:11 Pulse Ox 95 12/16/21 07:11 O2 Del Method 12/16/21 07:11 BMI result Body Mass Index 22.3 Const: General: cooperative, healthy appearing, comfortable and no acute distress Orientation/consciousness: patient oriented x3 HEENT: Face and sinus: Yes normal facial exam Mouth: moist mucous membranes Neck: Neck: Yes normal visual inspection, Yes full ROM and Yes trachea midline Chest: Chest palpation & inspection: normal inspection of the chest Resp: Effort & Inspection: normal respiratory effort, able to speak in complete sentences and no respiratory distress GI: Inspection: Yes normal to inspection Back/Spine/Pelvis: Cervical Spine: normal cervical lordosis Thoracic/Lumbar Spine: thoracic and lumbar spine normal to inspection Skin: General skin exam: no rashes or lesions noted Neuro: General: patient oriented x3, gait normal, tone normal and moves all extremities Extrem: General: Yes normal to inspection and Yes capillary refill normal Objective Data Active Medications Acetaminophen (Acetaminophen 325 Mg Tablet) 650 mg PO Q6H PRN PRN Reason: Pain, Mild (Pain Scale 1-3) Last Admin: 12/13/21 19:16 Dose: 650 mg Documented By: AMY Aspirin (Aspirin Enteric Coated 81 Mg Tablet.Dr) 81 mg PO DAILY [facility] Last Admin: 12/16/21 09:03 Dose: 81 mg Documented By: AMIRA Atorvastatin Calcium (Atorvastatin Calcium 40 Mg Tablet) 40 mg PO BEDTIME [facility] Last Admin: 12/15/21 20:18 Dose: 40 mg Documented By: YOSVANY Docusate Sodium (Docusate Sodium 100 Mg Capsule) 100 mg PO BID PRN PRN Reason: Constipation Last Admin: 12/13/21 09:35 Dose: 100 mg Documented By: HAYDER Doxazosin Mesylate (Doxazosin Mesylate 2 Mg Tablet) 4 mg PO BEDTIME [facility] Last Admin: 12/15/21 20:17 Dose: 4 mg Documented By: YOSVANY Finasteride (Finasteride 5 Mg Tablet) 5 mg PO DAILY [facility] Last Admin: 12/16/21 09:03 Dose: 5 mg Documented By: AMIRA Heparin Sodium (Porcine) (Heparin Sodium,Porcine 5,000 Unit/Ml Vial) 5,000 unit SUBCUT Q12H [facility] Last Admin: 12/16/21 09:02 Dose: 5,000 unit Documented By: AMIRA Dextrose (D5w) 1,000 mls @ 100 mls/hr IVCONT .Q10H [facility] Levofloxacin (Levofloxacin 500 Mg Tablet) 500 mg PO Q24H [facility] Last Admin: 12/15/21 14:16 Dose: 500 mg Documented By: SWEETIEORRSiva Ondansetron HCl (Ondansetron Hcl 4 Mg/2 Ml Vial) 4 mg IVPUSH Q8H PRN PRN Reason: Nausea and Vomiting Pharmacy Consult (Consult Rx Vancomycin Dosing) 1 each MISCELLANE DAILY PRN PRN Reason: Consult order Potassium Chloride (Potassium Chloride Packet 20 Meq Packet) 40 meq PO ONCE ONE Stop: 12/16/21 10:35 Sodium Chloride (0.9 % Sodium Chloride Flush 3 Ml Syringe) 3 ml IVFLUSH QSHIFT [facility] Last Admin: 12/16/21 09:03 Dose: 3 ml Documented By: AMIRA Ticagrelor (Ticagrelor 90 Mg Tablet) 90 mg PO BID [facility] Last Admin: 12/16/21 09:03 Dose: 90 mg Documented By: AMIRA Labs CBC & Chem 7: 12/16/21 06:19 12/16/21 06:19 Labs: Laboratory Results - last 24 hr 12/16/21 12/16/21 06:19 06:19 MCV 89.0 MCH 28.9 MCHC 32.5 RDW 15.6 Plt Count 220 MPV 9.3 L Absolute Nucleated RBC 0.000 Nucleated RBC % (auto) 0.0 Anion Gap 14 Estim Creat Clear Calc 25.1 Estimated GFR 26 Fasting Glucose 129 H Calcium 8.0 L Microbiology Microbiology Results: Microbiology 12/12/21 15:32 Urine Culture - Final Urine clean catch - Urine chung top Pseudomonas aeruginosa Enterococcus faecalis 12/12/21 15:45 Blood Culture - Final Blood - Venous Pseudomonas aeruginosa 12/12/21 15:45 Blood Culture - Final Blood - Venous Pseudomonas aeruginosa Assessment and Plan (1) Sepsis secondary to UTI: Status: Acute Plan 81M pmh of recurrent uti, 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
[2021-12-16] MEDS: Dextrose 5 % 1,000 ML 100 ML IVCONT ×2 (11:28→20:06)
[2021-12-16] MEDS: Potassium Chloride Packet 20 MEQ PACKET 40 MEQ PO (11:39)
[2021-12-16] MEDS: levoFLOXacin 500 MG TABLET PO (14:09)
--- NOTE | 2021-12-16 14:37 | MHC.CM.PN ---
pt is from [facility] where he is a bed hold ,spoke with sister who confirmed this and was clear s[facility] cm will follow for dc
[2021-12-16] MEDS: Doxazosin Mesylate 2 MG TABLET 4 MG PO (20:05)
[2021-12-16] MEDS: Atorvastatin Calcium 40 MG TABLET PO (20:05)
[2021-12-17 04:00] VITALS: BP 132/60; PULSE 64; RESP 18; TEMP 36.1; O2SAT 98
[2021-12-17] MEDS: Dextrose 5 % 1,000 ML 100 ML IVCONT (05:25)
[2021-12-17 06:55] LABS: Hematocrit 24.7 % (42.0-52.0); Mean Corpuscular HGB Conc 32.4 g/dl (31.0-36.0); Mean Corpuscular Volume 89.5 fL (80.0-98.0); Mean Platelet Volume 9.2 fL (9.4-12.4); Platelet Count 236 X10*3/uL (160-400); Red Blood Count 2.76 X10*6/uL (4.60-5.80); Red Cell Distribution Width 15.6 % (11.0-16.0)
[2021-12-17 07:18] LABS: Anion Gap 13 (12-20); Blood Urea Nitrogen 28 mg/dL (9-16); Calcium 7.8 mg/dL (8.4-10.2); Carbon Dioxide 23 mmol/L (22-29); Chloride 110 mmol/L (96-108); Estimated Glomerular Filt Rate 29; Glucose Fasting 132 mg/dL (60-99); Potassium 3.5 mmol/L (3.3-5.1); Sodium 142 mmol/L (135-145)
[2021-12-17 08:00] VITALS: BP 150/70; PULSE 75; RESP 16; TEMP 37.1; O2SAT 97
[2021-12-17] MEDS: Heparin Sodium,Porcine 5,000 UNIT/ML VIAL 5000 UNIT SUBCUT ×2 (08:35→22:49)
[2021-12-17] MEDS: Finasteride 5 MG TABLET PO (08:36)
[2021-12-17] MEDS: Ticagrelor 90 MG TABLET PO ×2 (08:36→22:49)
[2021-12-17] MEDS: Aspirin Enteric Coated 81 MG TABLET.DR PO (08:36)
--- NOTE | 2021-12-17 09:09 | HO.PM.IMPN ---
Subjective Subjective Date of Service: 12/17/21 Interval History: cc: suprapubic pain, non draingin catheter interval history: now draining, more alert Cardiovascular Cardiovascular: Reports no additional cardiovascular complaints Respiratory Respiratory: Reports no additional respiratory complaints Physical Exam Vital Signs: Vital Signs: Last Vital Signs Temp 98.8 F 12/17/21 08:00 Pulse 75 12/17/21 08:00 Resp 16 12/17/21 08:00 BP 150/70 H 12/17/21 08:00 Pulse Ox 97 12/17/21 08:00 O2 Del Method 12/17/21 08:00 BMI result Body Mass Index 22.3 Const: General: cooperative, healthy appearing, comfortable and no acute distress Orientation/consciousness: patient oriented x3 HEENT: Face and sinus: Yes normal facial exam Mouth: moist mucous membranes Neck: Neck: Yes normal visual inspection, Yes full ROM and Yes trachea midline Chest: Chest palpation & inspection: normal inspection of the chest Resp: Effort & Inspection: normal respiratory effort, able to speak in complete sentences and no respiratory distress GI: Inspection: Yes normal to inspection Back/Spine/Pelvis: Cervical Spine: normal cervical lordosis Thoracic/Lumbar Spine: thoracic and lumbar spine normal to inspection Skin: General skin exam: no rashes or lesions noted Neuro: General: patient oriented x3, gait normal, tone normal and moves all extremities Extrem: General: Yes normal to inspection and Yes capillary refill normal Objective Data Active Medications Acetaminophen (Acetaminophen 325 Mg Tablet) 650 mg PO Q6H PRN PRN Reason: Pain, Mild (Pain Scale 1-3) Last Admin: 12/13/21 19:16 Dose: 650 mg Documented By: AMY Aspirin (Aspirin Enteric Coated 81 Mg Tablet.Dr) 81 mg PO DAILY [facility] Last Admin: 12/17/21 08:36 Dose: 81 mg Documented By: AMIRA Atorvastatin Calcium (Atorvastatin Calcium 40 Mg Tablet) 40 mg PO BEDTIME [facility] Last Admin: 12/16/21 20:05 Dose: 40 mg Documented By: OSVALDO Docusate Sodium (Docusate Sodium 100 Mg Capsule) 100 mg PO BID PRN PRN Reason: Constipation Last Admin: 12/13/21 09:35 Dose: 100 mg Documented By: HAYDER Doxazosin Mesylate (Doxazosin Mesylate 2 Mg Tablet) 4 mg PO BEDTIME [facility] Last Admin: 12/16/21 20:05 Dose: 4 mg Documented By: OSVALDO Finasteride (Finasteride 5 Mg Tablet) 5 mg PO DAILY [facility] Last Admin: 12/17/21 08:36 Dose: 5 mg Documented By: AMIRA Heparin Sodium (Porcine) (Heparin Sodium,Porcine 5,000 Unit/Ml Vial) 5,000 unit SUBCUT Q12H [facility] Last Admin: 12/17/21 08:35 Dose: 5,000 unit Documented By: AMIRA Levofloxacin (Levofloxacin 500 Mg Tablet) 500 mg PO Q24H [facility] Last Admin: 12/16/21 14:09 Dose: 500 mg Documented By: AMIRA Ondansetron HCl (Ondansetron Hcl 4 Mg/2 Ml Vial) 4 mg IVPUSH Q8H PRN PRN Reason: Nausea and Vomiting Pharmacy Consult (Consult Rx Vancomycin Dosing) 1 each MISCELLANE DAILY PRN PRN Reason: Consult order Sodium Chloride (0.9 % Sodium Chloride Flush 3 Ml Syringe) 3 ml IVFLUSH QSHIFT [facility] Last Admin: 12/17/21 08:34 Dose: Not Given Documented By: AMIRA Non-Admin Reason: IV Running Ticagrelor (Ticagrelor 90 Mg Tablet) 90 mg PO BID [facility] Last Admin: 12/17/21 08:36 Dose: 90 mg Documented By: AMIRA Labs CBC & Chem 7: 12/17/21 06:28 12/17/21 06:28 Labs: Laboratory Results - last 24 hr 12/17/21 12/17/21 06:28 06:28 MCV 89.5 MCH 29.0 MCHC 32.4 RDW 15.6 Plt Count 236 MPV 9.2 L Absolute Nucleated RBC 0.000 Nucleated RBC % (auto) 0.0 Anion Gap 13 Estim Creat Clear Calc 28.0 Estimated GFR 29 Fasting Glucose 132 H Calcium 7.8 L Assessment and Plan (1) Sepsis secondary to UTI: Status: Acute Plan 81M pmh of recurrent uti, 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 Patient received 30 cc/kilos in ER as well as albumin in ED bp and mentation improved Suprapubic catheter now draining ID appreciated hanged to [facility], plan for 3 weeks, end jan 03, 2022 Monitor BMP meatbolic acidosis resolved hypernatremia improved with d5w, will hold and monitor hypokalemia replaced dysphagia [employer] appreciated - ndd2 solids, nectar thick liquids Chronic heart failure with reduced ejection fraction due to coronary disease Monitor for fluid overload Continue dual antiplatelet and statin Hypertension Lisinopril and terazosin on hold for hypotension DVT prophylaxis with heparin DNR/DNI reason for continued hospitalization: monitoring for ability to maintain sodium Quality Stroke Does the patient have a stroke diagnosis?: No VTE Prior VTE?: Yes VTE Risk Level:: Medical - moderate - high VTE Device Contraindication: Treatment Not Indicated VTE Drug Contraindication: N/A - Med Ordered
[2021-12-17 12:00] VITALS: BP 152/70; PULSE 77; RESP 20; TEMP 36.8; O2SAT 99
[2021-12-17] MEDS: levoFLOXacin 500 MG TABLET PO (13:43)
[2021-12-17 15:15] VITALS: BP 140/75; PULSE 69; RESP 18; TEMP 36.8; O2SAT 98
[2021-12-17 19:09] VITALS: BP 146/68; PULSE 75; RESP 18; TEMP 36.9; O2SAT 97
[2021-12-17] MEDS: Doxazosin Mesylate 2 MG TABLET 4 MG PO (22:49)
[2021-12-17] MEDS: Atorvastatin Calcium 40 MG TABLET PO (22:49)
[2021-12-18] VITALS: BP 138/74; PULSE 74; RESP 18; TEMP 36.7; O2SAT 96
[2021-12-18] MEDS: 0.9 % Sodium Chloride Flush 3 ML SYRINGE IVFLUSH ×2 (00:36→08:17)
[2021-12-18 02:54] VITALS: BP 138/72; PULSE 71; RESP 18; TEMP 37.1; O2SAT 93
[2021-12-18 07:01] LABS: Hematocrit 24.4 % (42.0-52.0); Hemoglobin 7.8 g/dl (14.0-18.0); Mean Corpuscular Hemoglobin 28.8 pg (27.0-33.0); Mean Platelet Volume 9.1 fL (9.4-12.4); Platelet Count 226 X10*3/uL (160-400); Red Blood Count 2.71 X10*6/uL (4.60-5.80); Red Cell Distribution Width 15.6 % (11.0-16.0); White Blood Count 4.7 X10*3/uL (4.8-10.8)
[2021-12-18 07:28] LABS: Anion Gap 13 (12-20); Blood Urea Nitrogen 22 mg/dL (9-16); Carbon Dioxide 25 mmol/L (22-29); Chloride 110 mmol/L (96-108); Creatinine Clr Calc Pharmacy 30.1; Estimated Glomerular Filt Rate 32; Glucose Fasting 100 mg/dL (60-99); Potassium 3.5 mmol/L (3.3-5.1); Sodium 144 mmol/L (135-145)
[2021-12-18 07:59] VITALS: BP 151/71; PULSE 65; RESP 16; TEMP 36.6; O2SAT 95
[2021-12-18] MEDS: Finasteride 5 MG TABLET PO (08:17)
[2021-12-18] MEDS: Heparin Sodium,Porcine 5,000 UNIT/ML VIAL 5000 UNIT SUBCUT (08:17)
[2021-12-18] MEDS: Aspirin Enteric Coated 81 MG TABLET.DR PO (08:18)
[2021-12-18] MEDS: Ticagrelor 90 MG TABLET PO (08:18)
--- NOTE | 2021-12-18 10:43 | P.DS_ITS ---
DS: Providers Provider Date of Service: 12/18/21 Date of admission: 12/12/21 19:59 Primary care physician: Obinna Moreau MD Consults: 12/12/21 20:28 Consult to Infectious Diseases Routine Consulting Provider: Lainey iFelds Reason for consultation: severe urosepsis Consult to Urology Routine Consulting Provider: Jordan Meeks Reason for consultation: severe urosepsis, suprapubic catheter 12/15/21 11:13 Consult to Infectious Diseases Routine Consulting Provider: Lainey Fields Reason for consultation: pseudomonas bacteremia DS: Diagnosis Discharge Diagnosis (1) Sepsis secondary to UTI: Status: Acute DS: Summary Hospital Course Hospital Course: from initial hpi: 81 year old male with with history recurrent UTI, 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 He is here today with friend and healthcare proxy Shelby Simmons. Pt reports fatigue and weakness. Has been residing at SNF for rehab since prolonged admission last month for septic shock from urosepsis and toxic metabolic encephalopathy? and NSTEMI from 10/26-11/02 with [place] [facility] [place]. Ct abd/pelvis showed hernandez portion of suprapubic tube inflated in penile urethra with diffuse bladder wall thickening and infiltration of the perivesicular fat with infectious vs neoplastic process to be considered. There is also 7mm bladder stone and mild left hydronephrosis and ureteral dilitation. CXR without consolidation but showing bronchial wall thickening. WBC 12.5. Chronic anemia with stable H/H 8.8/27.5. Creat elevated 4.36, BUN 86 (baseline 1.29 and 16). Electrolytes stable. Glucose 170. BNP 47. Trop-I 29.7. UA spec grav >1.030, 3+protein, 3+leuks, 3+ blood, nitrite negative, 4+ bacteria. Pyuria also present. Received 2gm ceftriaxone. Pt received 4L NS bolus due to hypotension on arrival with BP of 87/41 with addl BPs with SBP in 90s, improved to 115/68 during exam. Pt was febrile 101.5 and tachycardic to 100. Lactic acid 1.6. Pt to be admitted for ALETHEA and UTI. hospital course: Patient was admitted for metabolic encephalopathy and severe sepsis secondary to urinary tract infection complicated by Pseudomonas bacteremia due to obstruction of suprapubic catheter complicated by acute kidney injury. Patient was given IV fluid resuscitation as well as albumin, IV Zosyn, mental status and blood pressure improved. He was seen by infectious disease recommended three weeks total of oral Levaquin, to be completed 01/03/2022. Course was complicated by metabolic acidosis which resolved, hypernatremia which resolved with hypotonic fluids, hypokalemia which resolved with replacement. Dysphagia for which he was seen by speech and language pathology who recommended NDD2 solids, nectar thick liquids. For his chronic heart failure with reduced ejection fraction due to coronary disease he was continued on dual antiplatelet and statin. For his hy pertension his lisinopril and terazosin had been held due to hypotension, they can be resumed at discharge. Patient will be discharged to group home facility for short-term rehab. Time Spent with Patient Time attestation: Total time spent providing and/or coordinating discharge services: Discharge coordination time: Greater than 30 minutes Quality: Safe Use of Opioids Does Pt have an Active Cancer Diagnosis on the Problem List?: No Quality: Stroke Does the patient have a stroke diagnosis?: No Physical Exam Vital Signs: Vital Signs: Last Vital Signs Temp 97.9 F 12/18/21 07:59 Pulse 65 12/18/21 07:59 Resp 16 12/18/21 07:59 BP 151/71 H 12/18/21 07:59 Pulse Ox 95 12/18/21 07:59 O2 Del Method 12/18/21 07:59 BMI result Body Mass Index 22.3 Const: General: cooperative, healthy appearing, comfortable and no acute distress Orientation/consciousness: patient oriented x3 HEENT: Face and sinus: Yes normal facial exam Mouth: moist mucous membranes Neck: Neck: Yes normal visual inspection, Yes full ROM and Yes trachea midline Chest: Chest palpation & inspection: normal inspection of the chest Resp: Effort & Inspection: normal respiratory effort, able to speak in c omplete sentences and no respiratory distress GI: Inspection: Yes normal to inspection Back/Spine/Pelvis: Cervical Spine: normal cervical lordosis Thoracic/Lumbar Spine: thoracic and lumbar spine normal to inspection Skin: General skin exam: no rashes or lesions noted Neuro: General: patient oriented x3, gait normal, tone normal and moves all extremities Extrem: General: Yes normal to inspection and Yes capillary refill normal DS: Data Data Completed and Pending Completed studies during hospitalization [Text1]: Procedures Dilation of Left Ureter with Intraluminal Device, Via Natural or Artificial Opening Endoscopic (09/07/21) Drainage of Bladder with Drainage Device, Percutaneous Endoscopic Approach (10/26/21) Drainage of Left Inguinal Lymphatic, Percutaneous Approach, Diagnostic (09/07) Excision of Penis, Open Approach, Diagnostic (09/07/21) Extirpation of Matter from Bladder, Via Natural or Artificial Opening Endoscopic (10/26/21) Fluoroscopy of Right Kidney, Ureter and Bladder (09/07/21) Insertion of Infusion Device into Superior Vena Cava, Percutaneous Approach (10/26/21) Introduction of Vasopressor into Central Vein, Percutaneous Approach (10/26/21) Introduction of Vasopressor into Peripheral Vein, Percutaneous Approach (09/07/21) Release Penis, Open Approach (09/07/21) Removal of Intraluminal Device from Ureter, Via Natural or Artificial Opening Endoscopic (10/26/21) Ultrasonography of Superior Vena Cava, Guidance (10/26/21) Labs on day of discharge: Laboratory Results - last 24 hr 12/18/21 12/18/21 06:20 06:20 WBC 4.7 L RBC 2.71 L Hgb 7.8 L Hct 24.4 L MCV 90.0 MCH 28.8 MCHC 32.0 RDW 15.6 Plt Count 226 MPV 9.1 L Absolute Nucleated RBC 0.000 Nucleated RBC % (auto) 0.0 Sodium 144 Potassium 3.5 Chloride 110 H Carbon Dioxide 25 Anion Gap 13 BUN 22 H Creatinine 2.03 H Estim Creat Clear Calc 30.1 Estimated GFR 32 Fasting Glucose 100 H Calcium 8.0 L Discharge Plan Discharge Anticipated Discharge Date/Time: 12/18/21 10:41 Patient Disposition: er [facility] Discharge Diagnosis: sepsis, uti, bacteremia Referrals: Obinna Moreau MD [Primary Care Provider] - 1 Week Discharge Medications: New levofloxacin 500 mg Tablet 500 mg PO Q24H Qty: 18 0RF Continued aspirin 81 mg Tablet,Delayed Release (Dr/Ec) 81 mg PO DAILY rosuvastatin 10 mg tablet 1 tab PO BEDTIME ticagrelor 90 mg Tablet 90 mg PO BID lisinopril 5 mg Tablet 5 mg PO DAILY finasteride 5 mg tablet 5 mg PO DAILY 90 Days Qty: 90 1RF terazosin 5 mg capsule 5 mg PO BEDTIME 90 Days Qty: 90 1RF Discharge Orders: Discharge Order (Routine); Ordered 12/18/21 Ordered By: Justin Perez Diet: Advance to usual diet Activity on Discharge: As tolerated Stand Alone Forms: Patient Portal Discharge page Care Plan Goals: recovery Health Concerns: pseudomonas uti with bacteremia Plan of Treatment: complete 3 weeks of po levaquin Assessment: see above
[2021-12-18 11:30] VITALS: BP 143/81; PULSE 74; RESP 16; TEMP 36.9; O2SAT 97
--- NOTE | 2021-12-18 11:43 | MHC.CM.PN ---
pt to be dcd to [facility] at 2
--- NOTE | 2021-12-18 12:00 | MHC.CM.PN ---
pt dcd today back to [facility] at 2 and pt notified imm updated
[2021-12-18 13:10] LABS: COVID-19 Test Negative (Negative); IDNOW Serial# 9DD0AD1C
[2021-12-18] MEDS: levoFLOXacin 500 MG TABLET PO (13:30)
[2021-12-18] MEDS: LORazepam 0.5 MG TABLET PO (13:30)
== END 2021-12-18 14:45 | disposition skilled nursing facility (03) | DRG 698 ==
LOC: HO.ED 19:16 → HO.EDOVER 20:11 → HO.IMC 12-13 19:54
PROVIDERS: Hospitalist; Admitting Provider Physician Assistant; Emergency Provider Emergency Medicine; PCP Internal Medicine; Visit Provider Internal Medicine
DX: T83.518A Infection and inflammatory reaction due to other urinary catheter, initial encounter (principal); A41.9 Sepsis, unspecified organism; G93.41 Metabolic encephalopathy; R65.20 Severe sepsis without septic shock; I50.22 Chronic systolic (congestive) heart failure; N39.0 Urinary tract infection, site not specified; N17.9 Acute kidney failure, unspecified; E87.2 Acidosis; Z66 Do not resuscitate; Y73.1 Therapeutic (nonsurgical) and rehabilitative gastroenterology and urology devices associated with adverse incidents; I11.0 Hypertensive heart disease with heart failure; N40.1 Benign prostatic hyperplasia with lower urinary tract symptoms; R33.8 Other retention of urine; I25.2 Old myocardial infarction; E87.6 Hypokalemia; R13.10 Dysphagia, unspecified; E86.0 Dehydration; I95.9 Hypotension, unspecified; I25.10 Atherosclerotic heart disease of native coronary artery without angina pectoris; B96.5 Pseudomonas (aeruginosa) (mallei) (pseudomallei) as the cause of diseases classified elsewhere; Z20.822 Contact with and (suspected) exposure to COVID-19; Z79.82 Long term (current) use of aspirin; Z79.899 Other long term (current) drug therapy
CPT/HCPCS: 36415; 51798; 71045; 74176; 80048; 80076; 81001; 82803; 82947; 83605; 83690; 83735; 83880; 84484; 85025; 85027; 85610; 87040; 87077; 87086; 87088; 87186; 87205; 87635; 92610; 93005; 96361; 96374; 97163; 99285; C1758; J0696; J2543; J3370; P9047

== ENCOUNTER 2022-02-07 13:28 | Inpatient (IN) | payer MEDICARE, MEDICAID, SELFPAY ==
--- NOTE | ~2022-02-07 | XR_ITS ---
EXAMINATION: XR CHEST CLINICAL INFORMATION: Weakness. COMPARISON: 12/12/2021 chest radiograph. TECHNIQUE: 2 views of the chest were obtained. FINDINGS: No significant abnormality is noted involving the heart, lungs, mediastinum, bony thorax or soft tissues. XR/XR chest 2V IMPRESSION: No acute cardiopulmonary process.
--- NOTE | ~2022-02-07 | CT_ITS ---
EXAMINATION: CT HEAD WITHOUT CONTRAST CLINICAL INFORMATION: Encephalopathy. COMPARISON: There are no prior studies available for comparison. TECHNIQUE: Contiguous axial imaging was performed from the skull base to vertex without intravenous administration of contrast. Coronal and sagittal reformatted images were generated at the technologist workstation. This CT examination was performed using dose optimization techniques as appropriate, variously including the following: *Automated exposure control *Adjustment of mA and/or kV according to patient size (this includes techniques or standardized protocols for targeted exams where dose is matched to indication/reason for exam; i.e. extremities or head) *Use of iterative reconstruction technique DLP: 760 mGy-cm FINDINGS: There is no evidence of acute intracranial hemorrhage or territorial infarction. No abnormal mass-effect or midline shift is seen. Malone to white matter differentiation is well preserved. No extra-axial fluid collections are identified. There is commensurate prominence of the ventricles and sulci consistent with diffuse volume loss. There are areas of low attenuation in the periventricular and subcortical white matter, most consistent with chronic microvascular ischemic changes. There are areas of low attenuation in the basal ganglia bilaterally, and in the left cerebellar hemisphere consistent with chronic lacunar infarcts. The osseous structures and soft tissues are normal. There are atheromatous calcifications of the cavernous internal carotid arteries bilaterally. The mastoid air cells and visualized paranasal sinuses are well aerated.. CT/CT head/brain wo IV con IMPRESSION: 1. There are no acute bleeds or territorial infarcts. No masses are demonstrated. 2. There are chronic microvascular ischemic changes and lacunar infarcts. There is diffuse volume loss.
--- NOTE | ~2022-02-07 | XR_ITS ---
EXAMINATION: XR ABDOMEN KUB CLINICAL INDICATION: Pre-MRI. COMPARISON: CT abdomen/pelvis 12/12/2021. TECHNIQUE: AP view of the abdomen. FINDINGS: No ferromagnetic bodies. Barry catheter noted. Nonobstructive bowel gas pattern and. No acute osseous abnormalities. The visualized lung bases are clear. XR/XR KUB IMPRESSION: 1. No contraindicated radiopaque bodies for MRI. 2. Nonobstructive bowel gas pattern.
--- NOTE | ~2022-02-07 | CT_ITS ---
EXAMINATION: CT HEAD WITHOUT CONTRAST (STROKE PROTOCOL) CLINICAL INFORMATION: Stroke protocol. Right-sided facial droop. Reason encephalopathy/seizure. COMPARISON: CT had 02/15/2022, MR brain 02/17/2022 TECHNIQUE: Contiguous axial imaging was performed from the skull base to vertex without intravenous administration of contrast. Axial images are provided. This CT examination was performed using dose optimization techniques as appropriate, variously including the following: *Automated exposure control *Adjustment of mA and/or kV according to patient size (this includes techniques or standardized protocols for targeted exams where dose is matched to indication/reason for exam; i.e. extremities or head) *Use of iterative reconstruction technique DLP: 658 mGy-cm FINDINGS: There is no intracranial hemorrhage, hematoma, or extra-axial fluid collection. There are generalized atrophic changes with mild prominence of the ventricles and prominent cortical sulci and fissures and cisterns similar to prior study. Again, there are microvascular changes in the periventricular white matter and punctate lacunar infarcts versus [id number]-[id number]-[id number] spaces lower basal ganglia. No dense vessel sign. No mass effect or edema. There is no visible acute territorial infarct or mass lesion. The calvarium appears intact. There is no pneumocephalus or orbital emphysema. The visualized sinuses and middle ears and mastoid air cells show no significant mucosal thickening. There are no air-fluid levels. Results are called to Lindsay Pritchard PA-C at [address]/CT head for stroke IMPRESSION: No acute intracranial abnormality.
--- NOTE | ~2022-02-07 | XR_ITS ---
EXAMINATION: XR CHEST CLINICAL INFORMATION: Central line placement. COMPARISON: February 07, 2022 and December 12, 2021 TECHNIQUE: AP portable view of the chest was obtained. FINDINGS: A right internal jugular central venous catheter has been placed with tip in the region of the caval atrial junction. No pneumothorax is evident. No pleural effusion identified. Heart normal size. No evidence of pulmonary edema. Old sixth rib fracture on the right. XR/XR chest 1V IMPRESSION: No acute parenchymal disease. Right internal jugular central venous catheter in place without pneumothorax.
--- NOTE | ~2022-02-07 | FL_ITS ---
EXAMINATION: XR LUMBAR PUNCTURE CLINICAL INFORMATION: Evaluate for encephalitis. COMPARISON: None TECHNIQUE: Following explaining fluoroscopy-guided lumbar puncture procedure, benefits and risk to patient's via telephone in presence of x-ray electronics technician apprentice, a verbal phone consent was obtained. Patient was placed in left lateral decubitus view and a large structure. Low back was cleaned and draped in usual sterile manner with 2% chlorhexidine solution. 1% lidocaine was injected puncture site. A 22-gauge spinal needle was then advanced from the skin intrathecally at the L4-L5 disc level. After removing the stylet and opening CSF pressure was obtained. Subsequently CSF was collected in 4 test tubes. Postprocedure stylet was reintroduced and needle withdrawn. Patient tolerated procedure extremely well. FINDINGS: On limited imaging of lumbar spine there is normal lumbar lordosis. There is loss of L4-L5 and L5/S1 disc heights with ventral spondylosis. The needle is positioned at the L4-L5 disc level during the exam. Opening CSF pressure was 4 cm water. Approximately 9 mL of clear CSF fluid was collected in 4 test tubes. FLUOROSCOPY TIME: 0.7 minutes DOSE AREA PRODUCT: 3.46 uGy-m2 (microgray-meter squared) FL/FL guided lumbar puncture LP IMPRESSION: Successful fluoroscopic-guided lumbar puncture performed. The CSF pressure was 4 cm water. Clear CSF fluid was collected in 4 test tubes.
--- NOTE | ~2022-02-07 | MR_ITS ---
MRI OF THE BRAIN WITH AND WITHOUT IV CONTRAST INDICATION: Encephalopathy/seizure. COMPARISON: Head CT 02/15/2022. TECHNIQUE: Multiplanar multisequence MR imaging of the brain was obtained without and following the administration of 7 mL of Gadavist without complication. FINDINGS: There is no pathologic intracranial enhancement. There is global cerebral volume loss with a significant temporal lobe predominance and there is mild chronic microangiopathy. Chronic lacunar infarct within the right vinayak. There is no definite mesial temporal sclerosis. There is no hydrocephalus, extra-axial surface collection, or herniation. The major flow voids at the skull base are preserved. There is no acute infarct on diffusion-weighted imaging. There is no intracranial hemorrhage on the gradient recalled echo acquisition. The midline structures are normal. The cerebellar tonsils are normally positioned. The craniocervical junction is normal. Osseous marrow signal intensity is homogenous. The visualized soft tissues are unremarkable. MR/MR head/brain wo/w con IMPRESSION: - No acute intracranial findings. No enhancing lesions. - There is global cerebral volume loss with a significant temporal lobe predominance and there is mild chronic microangiopathy. Chronic lacunar infarct within the right vinayak. There is no definite mesial temporal sclerosis.
--- NOTE | 2022-02-07 13:33 | ED_ITS ---
HPI - General Adult General Chief complaint: Weakness Stated complaint: GEN WEAKNESS X'S 1 DAY Time Seen by Provider: 02/07/22 13:33 Source: patient, family () and EMS Mode of arrival: EMS Limitations: no limitations History of Present Illness HPI narrative: Patient is an 81 year old assigned male at with a history of sepsis and chronic hernandez catheter presenting to the emergency department today with dizziness and weakness. Patient states that starting yesterday he was feeling more weak and dizziness with positional changes. Patient denies any abdominal pain, nausea, vomiting, fever, chills, blurry vision, double vision, loss of vision, chest pain, difficulty breathing, shortness of breath, back pain, night sweats, pain with urination, increased urinary frequency, increased urinary u rgency, blood in his urine or stool, syncope or a near syncopal episode, recent trauma or falls, bowel incontinence, bladder incontinence, bowel retention, bladder retention, or any other complaints at this time. Onset (ago): day(s) Severity: mild Severity scale (1-10): 4 Relieving factors: none Exacerbating factors: none Associated symptoms: denies other symptoms Treatments prior to arrival: none Related Data Home Medications Medication Instructions Recorded Confirmed aspirin 81 mg tablet,delayed 81 mg PO DAILY 12/12/21 12/12/21 release lisinopril 5 mg tablet 5 mg PO DAILY 12/12/21 12/12/21 rosuvastatin 10 mg tablet 1 tab PO BEDTIME 12/12/21 12/12/21 ticagrelor 90 mg tablet 90 mg PO BID 12/12/21 12/12/21 Previous Rx's Medication Instructions Recorded finasteride 5 mg tablet 5 mg PO DAILY 90 days #90 tabs 10/25/21 terazosin 5 mg capsule 5 mg PO BEDTIME 90 days #90 caps 10/25/21 Allergies Allergy/AdvReac Type Severity Reaction Status Date / Time No Known Allergies Allergy Verified 10/25/21 08:15 Review of Systems Constitutional: Constitutional: Reports no additional constitutional complaints, Denies chills, Denies fever(s), Denies night sweats and Reports weakness Eyes: Eyes: Reports no additional eye complaints, Denies blurry vision, Denies change in vision, Denies diplopia, Denies eye discharge, Denies loss of vision and Denies eye pain ENT: Reports dizziness Cardiovascular: Cardiovascular: Reports no additional cardiovascular complaints, Denies chest pain, Denies lightheadedness, Denies Loss of Consciousness and Denies dyspnea Respiratory: Respiratory: Reports no additional respiratory complaints and Denies dyspnea Gastrointestinal: Gastrointestinal: Reports no additional gastrointestinal complaints, Denies abdominal pain, Denies melena, Denies hematochezia, Denies change in bowel habits and Denies change in stool character Genitourinary: Genitourinary: Reports no additional male genitourinary complaints, Denies hematuria, Denies oliguria, Denies difficulty urinating, Denies dysuria, Denies urinary frequency, Denies urinary hesitancy, Denies urinary incontinence and Denies urinary urgency Musculoskeletal: Musculoskeletal: Reports no additional musculoskeletal complaints, Denies numbness and Denies tingling Neurologic: Reports dizziness, Denies loss of vision, Denies numbness, Denies tingling and Reports weakness Psychiatric: Psychiatric: Reports no additional psychiatric complaints Endocrine: Endocrine: Reports no additional endocrine complaints Hematologic/Lymphatic: Hematologic/Lymphatic: Reports no additional hematologic/lymphatic complaints Allergic/Immunologic: Allergic/Immunologic: Reports no additional allergic/immunologic complaints [facility] Past Medical History Attestation statement: The following information was validated with the patient. 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 Mother No problems noted. Social History Social History Household Members: Friend(s) Housing: House Do you presently have visiting nurse or other home services: No Alcohol intake: never Patient Tobacco Use Status: Never used Tobacco Smoked in Last 30 Days: No e-Cigarette/Vaping Use: Never Used Second Hand Smoke Exposure: No Use of substances other than those prescribed or required for medical reasons: No Advance Directives: Yes Advance Directives on File: Yes Advance Directives Date on File: 09/21/21 service: No Current occupational status: unemployed and retired Physical Exam ED Vital Signs: Vital Signs - 24 hr 02/07/22 13:41 02/07/22 15:05 02/07/22 15:52 Temperature 98.8 F Pulse Rate 97 77 71 Respiratory Rate 18 14 Blood Pressure 92/45 L 82/44 L 98/53 L Pulse Oximetry 97 96 94 Oxygen Delivery Method Room Air Room Air BMI result Body Mass Index 20.9 Const General: cooperative, no acute distress, alert and awake Nutritional Appearance: well nourished Orientation/consciousness: patient oriented x3 Limitations: no limitations HENMT Head: Yes normal to inspection and Yes atraumatic Ears: hearing grossly normal bilaterally and external ears normal General nose exam: Normal external nose present, no nasal discharge noted and no epistaxis Face and sinus: Yes normal facial exam, No abrasion and No laceration Mouth: Normal oral and palatal mucosa present, no drooling and no muffled voice Eyes General: appearance normal, both eyes and all related structures Periorbital: periorbital findings normal Eyelids: Yes eyelids normal Conjunctivae: conjunctivae normal Pupils: Equal, round and reactive pupils present EOM: EOMs intact bilaterally Neck Neck: Yes normal visual inspection, Yes full ROM and Yes no lymphadenopathy Chest Chest palpation & inspection: normal inspection of the chest Resp Effort & Inspection: normal respiratory effort and able to speak in complete sentences Auscultation: clear to auscultation bilaterally Cardio Rate: regular rate Rhythm: regular rhythm GI Inspection: Yes normal to inspection Palpation (GI): Soft to palpation, not firm, nontender, no guarding and not rigid Other: hernandez catheter in place Neuro General: patient oriented x3 and moves all extremities Cranial nerves: Yes Equal, round and reactive pupils present Cognition (Neuro): normal cognition Motor exam (neuro): 5/5 motor strength present throughout Sensory Exam: Normal double simultaneous stimulation for sensation Coordination: [id number] test normal Extrem General: Yes normal to inspection, Yes full ROM and Yes capillary refill normal Psych Appearance: grossly normal Mental Status: mental status grossly normal Affect: normal affect Attitude: cooperative Thought process: Normal thought process present Thought content: Normal thought content present Insight: Good insight present (Psych) Medications Administered Discontinued Medications Generic Name Dose Route Start Last Admin Trade Name Freq PRN Reason Stop Dose Admin Sodium Chloride 1,000 mls @ 999 mls/hr 02/07/22 14:00 02/07/22 15:53 Ns IV 02/07/22 15:00 Infused .Q1H1M MIKKI Infusion Medical Decision Making MDM Narrative Medical decision making narrative: Patient is an 81 year old assigned male at with a history of ALETHEA and UTI with sepsis presenting to the emergency department today with weakness. Patient's physical exam showed mild hypotension but was otherwise unremarkable. Patient's blood work showed an elevated creatinine of 3. Patient's urine showed an acute urinary tract infection. Patient's EKG was unremarkable. Patient's chest x-ray showed no acute process. I explained my physical exam findings as well as all test results to the patient and the patient's . I answered all questions asked by the patient and the patient's . Patient was given IV antibiotics and IV fluids while in the department. Patient's clinical presen tation is most consistent with UTI and ALETHEA. Patient's clinical presentation is not consistent with sepsis. I spoke to the hospitalist team who agreed to admission. Patient and the patient's verbalized agreement and understanding with this treatment plan and admission. Medical Records Medical records reviewed: Yes I reviewed the patient's medical records. Lab Data Lab results reviewed: Yes I reviewed the patient's lab results. Result diagrams: 02/07/22 14:20 02/07/22 14:20 Labs: Lab Results 02/07/22 02/07/22 02/07/22 Range/Units 14:16 14:20 14:20 WBC 5.5 (4.8-10.8) X10*3/uL RBC 2.89 L (4.60-5.80) X10*6/uL Hgb 8.1 L (14.0-18.0) g/dl Hct 25.4 L (42.0-52.0) % MCV 87.9 (80.0-98.0) fL MCH 28.0 (27.0-33.0) pg MCHC 31.9 (31.0-36.0) g/dl RDW 15.7 (11.0-16.0) % Plt Count 238 (160-400) X10*3/uL MPV 8.6 L (9.4-12.4) fL Immature Gran % (Auto) 0.5 H (0.0-0.4) % Neut % (Auto) 71.6 (45-73) % Lymph % (Auto) 8.9 L (20-40) % [place] % (Auto) 15.7 H (2-11) % Eos % (Auto) 2.9 (0-4) % Baso % (Auto) 0.4 (0-2) % Lymph # (Auto) 0.5 L (1.2-4.9) X10*3/uL [place] # (Auto) 0.9 (0.1-1.2) X10*3/uL Eos # (Auto) 0.2 (0.0-0.4) X10*3/uL Baso # (Auto) 0.0 (0.0-0.2) X10*3/uL Abs Immat Gran (auto) 0.03 (0.00-0.03) X10*3/uL Absolute Neuts (auto) 3.9 (2.0-8.3) x10*3/uL Absolute Nucleated RBC 0.000 (0.0-0.012) X10*3/uL Nucleated RBC % (auto) 0.0 (0.0-0.2) /100WBC Sodium 135 (135-145) mmol/L Potassium 4.3 D (3.3-5.1) mmol/L Chloride 103 (96-108) mmol/L Carbon Dioxide 21 L (22-29) mmol/L Anion Gap 15 (12-20) BUN 37 H D (9-16) mg/dL Creatinine 3.04 H (0.5-1.4) mg/dL Estim Creat Clear Calc 18.9 Estimated GFR 20 Random Glucose 124 H (60-115) mg/dL Lactic Acid (0.5-2.0) mmol/L Calcium 10.5 H D (8.4-10.2) mg/dL Magnesium 2.1 (1.6-2.6) mg/dL Total Bilirubin 1.1 H (0.0-1.0) mg/dL AST 9 D (5-37) U/L ALT < 6 (0-40) U/L Alkaline Phosphatase 62 (39-117) U/L Troponin I High Sens (<3.5-35.0) ng/L Total Protein 7.0 (6.5-8.0) g/dL Albumin 3.1 L (3.5-5.0) g/dL Urine Color Urine Appearance Urine pH (5.0-9.0) Ur Specific [place] (1.005-1.025) Urine Protein (Neg-Trace) mg/dL Urine Glucose (UA) (Negative) mg/dL Urine Ketones (Negative) mg/dL Urine Blood (Negative) Urine Nitrite (Negative) Ur Leukocyte Esterase (Negative) Urine RBC (0-2) /HPF Urine WBC (0-5) /HPF Ur Squamous Epith Cells (0-2) /HPF Urine Bacteria (None Seen) Hyaline Casts (0-2) /LPF Urine Yeast Influenza Type A (PCR) NEGATIVE (Negative) Influenza Type B (PCR) NEGATIVE (Negative) RSV RNA Qual (PCR) NEGATIVE (Negative) SARS-CoV-2 RNA (RT-PCR) NEGATIVE (Negative) 02/07/22 02/07/22 02/07/22 Range/Units 14:20 15:14 16:50 WBC (4.8-10.8) X10*3/uL RBC (4.60-5.80) X10*6/uL Hgb (14.0-18.0) g/dl Hct (42.0-52.0) % MCV (80.0-98.0) fL MCH (27.0-33.0) pg MCHC (31.0-36.0) g/dl RDW (11.0-16.0) % Plt Count (160-400) X10*3/uL MPV (9.4-12.4) fL Immature Gran % (Auto) (0.0-0.4) % Neut % (Auto) (45-73) % Lymph % (Auto) (20-40) % [place] % (Auto) (2-11) % Eos % (Auto) (0-4) % Baso % (Auto) (0-2) % Lymph # (Auto) (1.2-4.9) X10*3/uL [place] # (Auto) (0.1-1.2) X10*3/uL Eos # (Auto) (0.0-0.4) X10*3/uL Baso # (Auto) (0.0-0.2) X10*3/uL Abs Immat Gran (auto) (0.00-0.03) X10*3/uL Absolute Neuts (auto) (2.0-8.3) x10*3/uL Absolute Nucleated RBC (0.0-0.012) X10*3/uL Nucleated RBC % (auto) (0.0-0.2) /100WBC Sodium (135-145) mmol/L Potassium (3.3-5.1) mmol/L Chloride (96-108) mmol/L Carbon Dioxide (22-29) mmol/L Anion Gap (12-20) BUN (9-16) mg/dL Creatinine (0.5-1.4) mg/dL Estim Creat Clear Calc Estimated GFR Random Glucose (60-115) mg/dL Lactic Acid 0.8 (0.5-2.0) mmol/L Calcium (8.4-10.2) mg/dL Magnesium (1.6-2.6) mg/dL Total Bilirubin (0.0-1.0) mg/dL AST (5-37) U/L ALT (0-40) U/L Alkaline Phosphatase (39-117) U/L Troponin I High Sens 10.7 D (<3.5-35.0) ng/L Total Protein (6.5-8.0) g/dL Albumin (3.5-5.0) g/dL Urine Color Yellow Urine Appearance Turbid Urine pH 8.5 (5.0-9.0) Ur Specific [place] 1.010 (1.005-1.025) Urine Protein 30 (1+) H (Neg-Trace) mg/dL Urine Glucose (UA) Negative (Negative) mg/dL Urine Ketones Negative (Negative) mg/dL Urine Blood Small (1+) H (Negative) Urine Nitrite Negative (Negative) Ur Leukocyte Esterase Large (3+) H (Negative) Urine RBC 3-5 H (0-2) /HPF Urine WBC >50 H (0-5) /HPF Ur Squamous Epith Cells 6-10 (0-2) /HPF Urine Bacteria 4+ (None Seen) Hyaline Casts 3-5 (0-2) /LPF Urine Yeast Present Influenza Type A (PCR) (Negative) Influenza Type B (PCR) (Negative) RSV RNA Qual (PCR) (Negative) SARS-CoV-2 RNA (RT-PCR) (Negative) Imaging Data Chest x-ray: Attestation: I personally reviewed and interpreted this imaging study as follows: My impression: No acute process. Radiologist's impression: EXAMINATION: XR CHEST CLINICAL INFORMATION: Weakness. COMPARISON: 12/12/2021 chest radiograph. TECHNIQUE: 2 views of the chest were obtained. FINDINGS: No significant abnormality is noted involving the heart, lungs, mediastinum, bony thorax or soft tissues. XR/XR chest 2V IMPRESSION: No acute cardiopulmonary process. Dictated By: Manuel Burgess MD Signed By: Electronically signed by Manuel Burgess MD 02/07/22 [id number] ECG Data Attestation: I personally reviewed and interpreted this ECG as follows: Prior ECG tracings: available for review Interpretation: Vent. Rate: 078 BPM ? ? Atrial Rate: 078 BPM P-R Int: 164 ms? QRS Dur: 118 ms QT Int: 392 ms ? ? ? P-R-T Axes: 060 -53 096 degrees QTc Int: 446 ms ? Normal sinus rhythm Left anterior fascicular block Minimal voltage criteria for LVH, may be normal variant ( Hurley product ) Intra-ventricular conduction delay Abnormal ECG When compared with ECG of 12-DEC-2021 16:40, T wave inversion less evident in Lateral leads Electronically Signed By:ANIYAH DUMONT MD Dictated By: Mainor Dumont MD Signed By: Electronically signed by Mainor Dumont MD 02/07/22 [id number] Critical Care Time Critical Care Time Critical Care Time: Yes Total Critical Care Time: 30 Attestation: I spent 30 minutes of Critical Care Time with this patient. This does not include time spent on separately reported billable procedures. Discharge Plan Discharge Clinical Impression: ALETHEA (acute kidney injury), UTI (urinary tract infection) Patient Disposition: Admitted As Inpatient
[2022-02-07 13:41] VITALS: BP 100/63; BP 92/45; PULSE 100; PULSE 97; RESP 18; TEMP 37.1; O2SAT 97; O2SAT 98; BMI 20.9
--- NOTE | 2022-02-07 13:48 | ECG_ITS ---
Test Reason : general medical Blood Pressure : / mmHG Vent. Rate : 078 BPM Atrial Rate : 078 BPM P-R Int : 164 ms QRS Dur : 118 ms QT Int : 392 ms P-R-T Axes : 060 -53 096 degrees QTc Int : 446 ms Normal sinus rhythm Left anterior fascicular block Minimal voltage criteria for LVH, may be normal variant ( Ar product ) Intra-ventricular conduction delay Abnormal ECG When compared with ECG of 12-DEC-2021 16:40, T wave inversion less evident in Lateral leads Referred By: Lou Shin Electronically Signed By:ANIYAH DUMONT MD
--- OUTSIDE RECORDS SUMMARY | 2022-02-07 14:01 | XMS_ITS | Continuity of Care Document ---
:1940 Author Organization [facility] Address [address] [place] [address]- Care Team Providers Name Role Phone Not on Staff, PCP Primary Care Physician Unavailable Encounter [facility] Date(s): 11/02/21 - 11/07/[address] [address] Discharge Disposition: A-Transfer SNF Attending Physician: Saji Gallo MD Admitting Physician: Kilo Velez MD Referring Physician: Not on Staff, Referring MD Allergies, Adverse Reactions, Alerts No Known Allergies Immunizations Given and Recorded Vaccine Date Status Refusal Reason SARS-CoV-2 (COVID-19) mRNA-1273 vaccine 02/21/21 Recorded SARS-CoV-2 (COVID-19) mRNA-1273 vaccine 08/19/20 Recorded SARS-CoV-2 (COVID-19) mRNA-1273 vaccine 07/22/20 Recorded Medications aspirin 81 mg oral delayed release tablet 81 mg, 1, tablet, By Mouth, Daily, # 30 tablet, Refills 0, Tot. Refills 0, Maintenance, 11/07/21 13:24:00 EDT, Do Not Route, Partial fill upon patient request if the prescription is for a schedule II opioid drug. Start Date: 11/07/21 Stop Date: 12/07/21 Status: Orderedfinasteride 5 mg oral tablet 1 tablet = 5 mg, By Mouth, Daily, # 30 tablet, 0 Refills, Maintenance, 11/02/21 17:44:00 EDT, Tablet, Partial fill upon patient request if the prescription is for a schedule II opioid drug. Start Date: 11/02/21 Status: Orderedlisinopril 5 mg oral tablet 5 mg, 1, tablet, By Mouth, Daily, # 30 tablet, Refills 0, Tot. Refills 0, Maintenance, 11/07/21 13:23:00 EDT, Do Not Route, Partial fill upon patient request if the prescription is for a schedule II opioid drug. Start Date: 11/07/21 Status: Orderedrosuvastatin 10 mg oral tablet 1 tablet = 10 mg, By Mouth, Daily, # 30 tablet, 0 Refills, Maintenance, 11/02/21 17:44:00 EDT, Tablet, Partial fill upon patient request if the prescription is for a schedule II opioid drug. Start Date: 11/02/21 Status: Orderedterazosin 5 mg oral capsule 5 mg, Capsule, By Mouth, 11/06/21 21:00:00 EDT Start Date: 11/06/21 Stop Date: 11/06/21 Status: Completedterazosin 5 mg oral capsule 5 mg, 1, capsule, By Mouth, Daily at bedtime, # 30 capsule, Refills 0, Maintenance, 11/02/21 17:44:00 EDT, Partial fill upon patient request if the prescription is for a schedule II opioid drug. Start Date: 11/02/21 Status: Orderedticagrelor 90 mg oral tablet 1 tablet = 90 mg, By Mouth, 2 times a day, # 60 tablet, 0 Refills, Maintenance, 11/07/21 13:24:00 EDT, Tablet, Partial fill upon patient request if the prescription is for a schedule II opioid drug. Start Date: 11/07/21 Status: Ordered Results Orders for Microbiology Reports Name Date Urine Culture 11/02/21 Microbiology Reports TEST:Urine Culture STATUS:Modified/Amended/Corrected BODY SITE: SOURCE:SUPRAP COLLECTED DATE/TIME:11/02/21 11:55 PMUrine Culture SPECIMEN DESCRIPTION : SUPRAPUBIC URINE SPECIAL REQUESTS : NONE CULTURE : <10,000 COL/ML ENTEROCOCCUS FAECALIS, VANCOMYCIN RESISTANT. These AST results were performed on the [employer] ID and AST system REPORT STATUS : FINAL 11/05/2021 ORGANISM <10,000 COL/ML ENTEROCOCCUS FAECALIS, VANCOMYCIN RESISTANT. METHOD MIN. INHIB. CONC. (MCG/ML) AMPICILLIN SUSCEPTIBLE CIPROFLOXACIN RESISTANT NITROFURANTOIN SUSCEPTIBLE LEVOFLOXACIN RESISTANT LINEZOLID SUSCEPTIBLE VANCOMYCIN RESISTANT TETRACYCLINE RESISTANT GENTAMICIN SYNERGY ACTIVE IN SYNERGY STREPTOMYCIN SYNERGY ACTIVE IN SYNERGY Vital Signs Most recent to oldest 1 2 3 [Reference Range]: Height 172 cm 172 cm 172 cm (11/07/21 8:22 AM) (11/07/21 2:00 AM) (11/06/21 7:4 5 PM) Weight 71.8 kg 72.8 kg 75.6 kg (11/07/21 2:00 AM) (11/06/21 2:23 AM) (11/05/21 2:0 0 AM) Oxygen Saturation [94-100 %] 98 % 97 % 97 % (11/07/21 8:22 AM) (11/07/21 2:00 AM) (11/06/21 7:4 5 PM) Pulse Rate [55-90 bpm] 79 bpm 69 bpm 72 bpm (11/07/21 8:22 AM) (11/07/21 2:00 AM) (11/06/21 7:4 5 PM) Body Mass Index [18.5-24.99] 24.27 24.61 25. 89 (11/07/21 2:00 AM) (11/06/21 2:23 AM) *H* (11/03/21 2:08 AM ) Blood Pressure [90-138/55-84 mm 112/59 mm Hg 117/59 mm Hg 120/63 mm Hg Hg] (11/07/21 8:22 AM) (11/07/21 2:00 AM) (11/06/21 9:0 8 PM) Respiratory Rate [16-30 br/min] 18 br/min 18 br/min 16 br/min (11/07/21 2:00 AM) (11/06/21 7:45 PM) (11/06/21 2:4 8 PM) Temperature [96.8-100.4 DegF] 97.5 DegF 98.3 DegF 98 .1 DegF (11/07/21 8:22 AM) (11/07/21 2:00 AM) (11/06/21 7:4 5 PM) Mode of Delivery (Oxygen) Room air Room air Room a ir (11/07/21 8:22 AM) (11/07/21 2:00 AM) (11/06/21 7:4 5 PM) Blood pressure sites Arm, right Arm, right Arm, right (11/07/21:22 AM) (11/07/21 2:00 AM) (11/06/21 7:4 5 PM) Temperature Route Axillary Oral Oral (11/07/21 8:22 AM) (11/07/21 2:00 AM) (11/06/21 7:4 5 PM) Dry Weight 72.3 kg (11/02/21 5:34 PM) Weight Obtained Via Bed scale Bed scale Bed scale (11/07/21 2:00 AM) (11/06/21 2:23 AM) (11/05/21 2:0 0 AM) Social History Social History Type Response Smoking Status Never (less than 100 in life time) entered on: 11/02/21 Sex
--- OUTSIDE RECORDS SUMMARY | 2022-02-07 14:01 | XMS_ITS | Continuity of Care Document ---
:1940 Author Organization [facility] Address [address] [place] [address]- Care Team Providers Name Role Phone Julia Saldaña MD Primary Care Physician Encounter [facility] Date(s): 01/01/22 - 01/03/[address] [address]- Encounter Diagnosis Right sided weakness (Final) - 01/01/22 Right sided weakness (Final) - 01/01/22 Discharge Disposition: A-D/C Home Attending Physician: Rukhsana Parada MD Admitting Physician: Talon Fox MD Referring Physician: Not on Staff, Referring [...] II opioid drug. Start Date: 11/02/21 Status: OrderedlevoFLOXacin 500 mg oral tablet 1 tablet = 500 mg, By Mouth, Every 24 hours, from 12/19/21-01/03/22, Maintenance, 01/01/22 19:14:00 EDT, Tablet Start Date: 01/01/22 Status: Orderedrosuvastatin 10 mg oral tablet 1 tablet = 10 mg, By Mouth, Daily, # 30 tablet, 0 Refills, Maintenance, 11/02/21 17:44:00 EDT, Tablet, Partial fill upon patient request if the prescription is for a schedule II opioid drug. Start Date: 11/02/21 Status: Orderedterazosin 5 mg oral capsule 5 mg, 1, [...] for Microbiology Reports Name Date Urine Culture (URINE CULTURE) 01/01/22 Microbiology Reports TEST:Urine Culture STATUS:Auth (Verified) BODY SITE: SOURCE:URINE COLLECTED DATE/TIME:01/01/22 7:08 PMUrine Culture SPECIMEN DESCRIPTION : URINE SPECIAL REQUESTS : NONE CULTURE : NO GROWTH REPORT STATUS : FINAL 01/03/2022adiology Reports Exam Date Time Procedure Performing Provider Status 01/01/22 5:27 PM Chest 2 Views Frontal and Lat Malena Graham [facility] (Verified) Notes:(Chest 2 Views Frontal and Lat) Reason For Exam: Stroke;Other:RESULT: Chest 2 Views Frontal and Lat Chest 2 Views Frontal and Lat Hx of Present Illness: Stroke. Hypotensive. COMPARISON: None. FINDINGS: LINES AND TUBES: None. LUNGS AND PLEURA: Clear lungs. Normal pulmonary vascularity. Trace bilateral pleural effusions. No pneumothorax. HEART, MEDIASTINUM AND YOVANI: Heart is normal in size. Normal mediastinal and hilar contour. BONES AND SOFT TISSUES: No acute abnormality. IMPRESSION: Trace bilateral pleural effusions WSN: [id number] Ordering Physician: Zamzam Malcolm Dictated By: Johnny Bryant MD Dictated Date/Time: 01/01/22 5:28 pm Reviewed By: Johnny Bryant MD Signed By: Johnny Bryant MD Signed Date/Time: 01/01/22 5:28 pm Transcribed By: IBETH Transcribed Date/Time: 01/01/22 5:27 pm Vital Signs Most recent to oldest 1 2 3 [Reference Range]: Height 183 cm 183 cm 183 cm (01/03/22 12:14 PM) (01/03/22 7:58 AM) (01/03/22 4:22 AM) Weight 70 kg 71.3 kg (01/01/22 11:58 PM) (01/01/22 11:44 PM) Oxygen Saturation [94-100 99 % 97 % 96 % %] (01/03/22 12:14 PM) (01/03/22 7:58 AM) (01/03/22 4:22 AM) Pulse Rate [55-90 bpm] 81 bpm 69 bpm 72 bpm (01/03/22 12:14 PM) (01/03/22 7:58 AM) (01/03/22 4:22 AM) Body Mass Index [18.5-24.99 20.9 kg/m2 kg/m2] (01/01/22 11:58 PM) Blood Pressure 107/64 mm Hg 113/61 mm Hg 106/47 mm Hg [90-138/55-84 mm Hg] (01/03/22 12:14 PM) (01/03/22 7:58 AM) ( 4:22 AM) Respiratory Rate [16-30 18 br/min 14 br/min 14 br/mi n br/min] (01/03/22 1:14 PM) *L* *L* (01/03/22 12:14 PM) (01/03/22 7: 58 AM) Temperature [96.8-100.4 98.0 DegF 98.2 DegF 98.3 Deg F DegF] (01/03/22 12:14 PM) (01/03/22 7:58 AM) (01/03/22 4:22 AM) Mode of Delivery (Oxygen) Room air Room air Room a ir (01/03/22 12:14 PM) (01/03/22 7:58 AM) (01/03/22 4:22 AM) Blood pressure sites Arm, left Arm, left Arm, left (01/03/22 12:14 PM) (01/03/22 7:58 AM) (01/03/22 4:22 AM) Temperature Route Oral Oral Oral (01/03/22 12:14 PM) (01/03/22 7:58 AM) (01/03/22 4:22 AM) Dry Weight 70 kg (01/01/22 11:58 PM) Weight Obtained Via Bed scale (01/01/22 11:44 PM) Social History Social History Type Response Smoking Status Never (less than 100 in life time) entered on: 11/02/21 Sex Note [facility] , CIS S: TRANSCRIBE Johnny Bryant MD: VERIFY Event Display: Result: Authored Date: [id number] Chest 2 Views Frontal and Lat Hx of Present Illness: Stroke. Hypotensive. COMPARISON: None. FINDINGS: LINES AND TUBES: None. LUNGS AND PLEURA: Clear lungs. Normal pulmonary vascularity. Trace bilateral pleural effusions. No pneumothorax. HEART, MEDIASTINUM AND YOVANI: Heart is normal in size. Normal mediastinal and hilar contour. BONES AND SOFT TISSUES: No acute abnormality. IMPRESSION: Trace bilateral pleural effusions WSN: [id number] Ordering Physician: Zamzam Malcolm Dictated By: Johnny Bryant MD Dictated Date/Time: 01/01/22 5:28 pm Reviewed By: Johnny Bryant MD Signed By: Johnny Bryant MD Signed Date/Time: 01/01/22 5:28 pm Transcribed By: IBETH Transcribed Date/Time: 01/01/22 5:27 pm Patient Care team information PersonnelName: Julia Saldaña MD Address: Address: [address] [place] [id number]
[2022-02-07] MEDS: 0.9 % Sodium Chloride 1,000 ML 999 ML IV ×2 (14:14→18:10)
[2022-02-07 14:25] LABS: MANUAL DIFF FLAG NO
[2022-02-07 14:28] LABS: Basophils Percent Auto 0.4 % (0-2); Eosinophils Absolute Auto 0.2 X10*3/uL (0.0-0.4); Eosinophils Percent Auto 2.9 % (0-4); Hematocrit 25.4 % (42.0-52.0); Hemoglobin 8.1 g/dl (14.0-18.0); Imm Gran Abs Auto 0.03 X10*3/uL (0.00-0.03); Imm Gran Pct Auto 0.5 % (0.0-0.4); Lymphocytes Absolute Auto 0.5 X10*3/uL (1.2-4.9); Lymphocytes Percent Auto 8.9 % (20-40); Mean Corpuscular HGB Conc 31.9 g/dl (31.0-36.0); Mean Corpuscular Volume 87.9 fL (80.0-98.0); Mean Platelet Volume 8.6 fL (9.4-12.4); Monocytes Absolute Auto 0.9 X10*3/uL (0.1-1.2); Monocytes Percent Auto 15.7 % (2-11); Neutrophils Absolute Auto 3.9 x10*3/uL (2.0-8.3); Neutrophils Percent Auto 71.6 % (45-73); Platelet Count 238 X10*3/uL (160-400); Red Blood Count 2.89 X10*6/uL (4.60-5.80); Red Cell Distribution Width 15.7 % (11.0-16.0); White Blood Count 5.5 X10*3/uL (4.8-10.8)
[2022-02-07 14:49] LABS: Alanine Aminotransferase < 6 U/L (0-40); Albumin Level 3.1 g/dL (3.5-5.0); Alkaline Phosphatase 62 U/L (39-117); Anion Gap 15 (12-20); Aspartate Amino Transferase 9 U/L (5-37); Bilirubin Total 1.1 mg/dL (0.0-1.0); Blood Urea Nitrogen 37 mg/dL (9-16); Calcium 10.5 mg/dL (8.4-10.2); Carbon Dioxide 21 mmol/L (22-29); Chloride 103 mmol/L (96-108); Creatinine Clr Calc Pharmacy 18.9; Estimated Glomerular Filt Rate 20; Glucose Random 124 mg/dL (60-115); Magnesium 2.1 mg/dL (1.6-2.6); Potassium 4.3 mmol/L (3.3-5.1); Sodium 135 mmol/L (135-145)
[2022-02-07 14:54] LABS: Troponin-I High Sensitivity 10.7 ng/L (<3.5-35.0)
[2022-02-07 15:03] LABS: Influenza A PCR NEGATIVE (Negative); Influenza B PCR NEGATIVE (Negative); Resp Syncy Virus RNA Qual PCR NEGATIVE (Negative); SARS COV2 PCR INHOUSE NEGATIVE (Negative)
[2022-02-07 15:05] VITALS: BP 82/44; PULSE 77; RESP 14; O2SAT 96
[2022-02-07 15:27] LABS: Appearance Urine Turbid; Color Urine Yellow; Glucose Urine UA Negative (Negative); Leukocyte Esterase Urine Large (3+) (Negative); Nitrite Urine Negative (Negative); PH 8.5 (5.0-9.0); UMIC TRIGGER UACC YES; Urine Blood Small (1+) (Negative); Urine Ketones Negative (Negative); Urine Protein 30 (1+) mg/dL (Neg-Trace)
[2022-02-07 15:42] LABS: Bacteria Urine 4+ (None Seen); UACC Culture Trigger YES; WBC Urine >50 /HPF (0-5)
[2022-02-07 15:52] VITALS: BP 98/53; PULSE 71; O2SAT 94
[2022-02-07 17:14] LABS: Lactic Acid 0.8 mmol/L (0.5-2.0)
[2022-02-07] MEDS: cefEPime HCl 2 GM in 0.9 % Sodium Chloride 50 ML IV (18:09)
--- NOTE | 2022-02-07 18:24 | PM.IMHP ---
History of Present Illness Date of Service: 02/07/22 Chief Complaint: wakness/uti 81 year old assigned male at with a history of sepsis and chronic hernandez catheter presenting to the emergency department today with dizziness and weakness. Patient states that starting yesterday he was feeling more weak and dizziness with positional changes. 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 He had a similar presentation approximately 1 and half months ago ; urine culture consistent with Pseudomonas and he was subsequently bacteremic with the same. He was discharged to SNF on oral Levaquin. He was discharged to home or said he was doing well until today when physical therapy came and his legs went out from underneath him. She felt he was repeating his same presentation and called an ambulance to transport to the emergency room. In the emergency room he did not have a white count however he had active urine sediment. 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 Mother No problems noted. Surgical History History of surgery Social History Household Members: Friend(s) Housing: House Do you presently have visiting nurse or other home services: No Alcohol intake: never Patient Tobacco Use Status: Never used Tobacco Smoked in Last 30 Days: No e-Cigarette/Vaping Use: Never Used Second Hand Smoke Exposure: No Use of substances other than those prescribed or required for medical reasons: No Advance Directives: Yes Advance Directives on File: Yes Advance Directives Date on File: 09/21/21 service: No Current occupational status: unemployed and retired Meds Allergies Allergy/AdvReac Type Severity Reaction Status Date / Time No Known Allergies Allergy Verified 10/25/21 08:15 Active Medications: Current Medications Aspirin (Aspirin Enteric Coated 81 Mg Tablet.Dr) 81 mg PO DAILY [facility] Atorvastatin Calcium (Atorvastatin Calcium 40 Mg Tablet) 40 mg PO BEDTIME [facility] Finasteride (Finasteride 5 Mg Tablet) 5 mg PO DAILY [facility] Sodium Chloride (Ns) 1,000 mls @ 999 mls/hr IV .Q1H1M [facility] Stop: 02/07/22 18:30 Last Admin: 02/07/22 18:10 Dose: 999 mls/hr Cefepime HCl 1 gm/ Sodium (Chloride) 50 mls @ 100 mls/hr IV Q8H [facility] Pharmacy Consult (Consult Rx Perform Med Rec) 1 each MISCELLANE ONCE PRN PRN Reason: Consult order Ticagrelor (Ticagrelor 90 Mg Tablet) 90 mg PO BID [facility] Home Medications Medication Instructions Recorded Confirmed Last Taken Type aspirin 81 mg tablet,delayed 81 mg PO DAILY 12/12/21 02/07/22 02/07/22 History release lisinopril 5 mg tablet 5 mg PO DAILY 12/12/21 02/07/22 02/07/22 History rosuvastatin 10 mg tablet 1 tab PO BEDTIME 12/12/21 02/07/22 02/06/22 History ticagrelor 90 mg tablet 90 mg PO BID 12/12/21 02/07/22 02/06/22 History Physical Exam Vital Signs and Narrative: Vital Signs: Last Vital Signs Temp 98.8 F 02/07/22 13:41 Pulse 71 02/07/22 15:52 Resp 14 02/07/22 15:05 BP 98/53 L 02/07/22 15:52 Pulse Ox 94 02/07/22 15:52 O2 Del Method 02/07/22 15:52 BMI result Body Mass Index 20.9 Const: Other: Ill-appearing no acute distress Resp: Other: Clear to auscultation bilaterally no rales rhonchi wheezes Cardio: Other: No S4; positive S1-S2; no S3 murmurs rubs or gallops GI: Other: Soft nontender nondistended normoactive bowel sounds. Suprapubic site clean dry intact however leaking urine around catheter Extrem: Other: No edema bilaterally Results Labs CBC and Chem 7: 02/07/22 14:20 11/23/22 14:20 Labs: Laboratory Results - last 24 hr 02/07/22 02/07/22 02/07/22 14:16 14:20 14:20 MCV 87.9 MCH 28.0 MCHC 31.9 RDW 15.7 Plt Count 238 MPV 8.6 L Immature Gran % (Auto) 0.5 H Neut % (Auto) 71.6 Lymph % (Auto) 8.9 L Flagler % (Auto) 15.7 H Eos % (Auto) 2.9 Baso % (Auto) 0.4 Lymph # (Auto) 0.5 L Flagler # (Auto) 0.9 Eos # (Auto) 0.2 Baso # (Auto) 0.0 Abs Immat Gran (auto) 0.03 Absolute Neuts (auto) 3.9 Absolute Nucleated RBC 0.000 Nucleated RBC % (auto) 0.0 Anion Gap 15 Estim Creat Clear Calc 18.9 Estimated GFR 20 Random Glucose 124 H Lactic Acid Calcium 10.5 H D Magnesium 2.1 Total Bilirubin 1.1 H AST 9 D ALT < 6 Alkaline Phosphatase 62 Troponin I High Sens Total Protein 7.0 Albumin 3.1 L Urine Color Urine Appearance Urine pH Ur Specific Pillow Urine Protein Urine Glucose (UA) Urine Ketones Urine Blood Urine Nitrite Ur Leukocyte Esterase Urine RBC Urine WBC Ur Squamous Epith Cells Urine Bacteria Hyaline Casts Urine Yeast Influenza Type A (PCR) NEGATIVE Influenza Type B (PCR) NEGATIVE RSV RNA Qual (PCR) NEGATIVE SARS-CoV-2 RNA (RT-PCR) NEGATIVE 02/07/22 02/07/22 02/07/22 14:20 15:14 16:50 MCV MCH MCHC RDW Plt Count MPV Immature Gran % (Auto) Neut % (Auto) Lymph % (Auto) Flagler % (Auto) Eos % (Auto) Baso % (Auto) Lymph # (Auto) Flagler # (Auto) Eos # (Auto) Baso # (Auto) Abs Immat Gran (auto) Absolute Neuts (auto) Absolute Nucleated RBC Nucleated RBC % (auto) Anion Gap Estim Creat Clear Calc Estimated GFR Random Glucose Lactic Acid 0.8 Calcium Magnesium Total Bilirubin AST ALT Alkaline Phosphatase Troponin I High Sens 10.7 D Total Protein Albumin Urine Color Yellow Urine Appearance Turbid Urine pH 8.5 Ur Specific Pillow 1.010 Urine Protein 30 (1+) H Urine Glucose (UA) Negative Urine Ketones Negative Urine Blood Small (1+) H Urine Nitrite Negative Ur Leukocyte Esterase Large (3+) H Urine RBC 3-5 H Urine WBC >50 H Ur Squamous Epith Cells 6-10 Urine Bacteria 4+ Hyaline Casts 3-5 Urine Yeast Present Influenza Type A (PCR) Influenza Type B (PCR) RSV RNA Qual (PCR) SARS-CoV-2 RNA (RT-PCR) Imaging Radiologist's Impressions: Impressions Chest X-Ray 02/07/22 15:00 IMPRESSION: No acute cardiopulmonary process. 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 Review of chart demonstrates is similar to the last presentation of admission end of November. 1. UTI (active urine sediment pending cultures) -blood in urine cultures obtained -cefepime 1 g Q 24 hours -consult urology for suprapubic tube change in a.m. 2. ALETHEA on CKD 3 -likely secondary to volume depletion -volume repletion with normal saline -follow renals/LFTs 3. Hypertension (hypotensive on arrival) -saline bolus in the ER x2 L... Continue saline at 100 mL an hour overnight -hold antihypertensives add back when appropriate 4. Coronary artery disease -2D echo 11/06 demonstrates an LVEF between 30 and 35% -cautious fluids overnight -continue dual antiplatelet agents Full code Heparin Patient will require an inpatient stay of at least 2 midnights going forward for IV antibiotics to treat urinary tract infection and await subsequent cultures Quality Stroke Does the patient have a stroke diagnosis?: No VTE Prior VTE?: No VTE Risk Level:: Medical - moderate - high VTE Device Contraindication: Treatment Not Indicated VTE Drug Contraindication: N/A - Med Ordered
[2022-02-07 18:40] VITALS: BP 102/52; PULSE 75; RESP 16; O2SAT 98
[2022-02-07] MEDS: 0.9 % Sodium Chloride 1,000 ML 100 ML IVCONT (18:43)
[2022-02-07] MEDS: Atorvastatin Calcium 40 MG TABLET PO (20:29)
[2022-02-07] MEDS: Heparin Sodium,Porcine 5,000 UNIT/ML VIAL 5000 UNIT SUBCUT (20:29)
[2022-02-07] MEDS: Ticagrelor 90 MG TABLET PO (20:29)
[2022-02-07 21:09] VITALS: BMI 21.3
[2022-02-07 21:27] VITALS: BP 121/67; PULSE 83; RESP 18; TEMP 36.1; O2SAT 98
[2022-02-07 23:26] VITALS: BP 135/64; PULSE 78; RESP 18; TEMP 36.9; O2SAT 97
[2022-02-08] VITALS (9 sets, daily range): BP systolic 113–146; BP diastolic 59–70; PULSE 73–86; RESP 16–20; TEMP 36.2–37.1; O2SAT 96–98
[2022-02-08] MEDS: cefEPime HCl 1 GM in 0.9 % Sodium Chloride 50 ML IV ×3 (01:05→17:17)
[2022-02-08] MEDS: 0.9 % Sodium Chloride 1,000 ML 100 ML IVCONT ×2 (04:30→17:25)
[2022-02-08 05:50] LABS: MANUAL DIFF FLAG NO
[2022-02-08 05:58] LABS: Basophils Percent Auto 0.5 % (0-2); Eosinophils Absolute Auto 0.2 X10*3/uL (0.0-0.4); Eosinophils Percent Auto 5.6 % (0-4); Hematocrit 22.9 % (42.0-52.0); Hemoglobin 7.4 g/dl (14.0-18.0); Imm Gran Abs Auto 0.02 X10*3/uL (0.00-0.03); Imm Gran Pct Auto 0.5 % (0.0-0.4); Lymphocytes Absolute Auto 0.5 X10*3/uL (1.2-4.9); Lymphocytes Percent Auto 13.7 % (20-40); Mean Corpuscular HGB Conc 32.3 g/dl (31.0-36.0); Mean Corpuscular Hemoglobin 28.6 pg (27.0-33.0); Mean Corpuscular Volume 88.4 fL (80.0-98.0); Mean Platelet Volume 8.8 fL (9.4-12.4); Monocytes Absolute Auto 0.7 X10*3/uL (0.1-1.2); Monocytes Percent Auto 17.8 % (2-11); Neutrophils Absolute Auto 2.4 x10*3/uL (2.0-8.3); Neutrophils Percent Auto 61.9 % (45-73); Platelet Count 224 X10*3/uL (160-400); Red Blood Count 2.59 X10*6/uL (4.60-5.80); Red Cell Distribution Width 15.7 % (11.0-16.0); White Blood Count 3.9 X10*3/uL (4.8-10.8)
[2022-02-08 06:15] LABS: Alanine Aminotransferase < 6 U/L (0-40); Albumin Level 2.6 g/dL (3.5-5.0); Alkaline Phosphatase 50 U/L (39-117); Anion Gap 12 (12-20); Aspartate Amino Transferase 6 U/L (5-37); Bilirubin Total 1.1 mg/dL (0.0-1.0); Blood Urea Nitrogen 35 mg/dL (9-16); Calcium 9.8 mg/dL (8.4-10.2); Carbon Dioxide 22 mmol/L (22-29); Chloride 111 mmol/L (96-108); Creatinine Clr Calc Pharmacy 23.4; Estimated Glomerular Filt Rate 25; Glucose Fasting 92 mg/dL (60-99); Potassium 4.6 mmol/L (3.3-5.1); Sodium 140 mmol/L (135-145); Total Protein 6.1 g/dL (6.5-8.0)
[2022-02-08] MEDS: Ticagrelor 90 MG TABLET PO ×2 (08:53→19:42)
[2022-02-08] MEDS: Aspirin Enteric Coated 81 MG TABLET.DR PO (08:53)
[2022-02-08] MEDS: 0.9 % Sodium Chloride Flush 3 ML SYRINGE IVFLUSH ×2 (08:53→19:42)
[2022-02-08] MEDS: Finasteride 5 MG TABLET PO (08:53)
--- NOTE | 2022-02-08 10:11 | HO.PM.IMPN ---
Subjective Subjective Date of Service: 02/08/22 Interval History: Mild confusion this a.m. but otherwise no acute events overnight Review of Systems Denies chest pain Denies shortness of breath Denies nausea vomiting diarrhea Denies fever chills Physical Exam Vital Signs: Vital Signs: Last Vital Signs Temp 97.8 F 02/08/22 07:33 Pulse 81 02/08/22 07:33 Resp 20 02/08/22 07:33 BP 132/70 02/08/22 07:33 Pulse Ox 98 02/08/22 07:33 O2 Del Method 02/08/22 03:25 BMI result Body Mass Index 21.3 Const: Other: Ill-appearing no acute distress Resp: Other: Clear to auscultation bilaterally no rales rhonchi wheezes Cardio: Other: No S4; positive S1-S2; no S3 murmurs rubs or gallops GI: Other: Soft nontender nondistended normoactive bowel sounds. Suprapubic site clean dry intact however leaking urine around catheter Extrem: Other: No edema bilaterally Objective Data Active Medications Acetaminophen (Acetaminophen 325 Mg Tablet) 650 mg PO Q6H PRN PRN Reason: Pain, Mild (Pain Scale 1-3) Aspirin (Aspirin Enteric Coated 81 Mg Tablet.Dr) 81 mg PO DAILY [facility] Last Admin: 02/08/22 08:53 Dose: 81 mg Documented By: AFRICA Atorvastatin Calcium (Atorvastatin Calcium 40 Mg Tablet) 40 mg PO BEDTIME [facility] Last Admin: 02/07/22 20:29 Dose: 40 mg Documented By: ANTONIO Finasteride (Finasteride 5 Mg Tablet) 5 mg PO DAILY [facility] Last Admin: 02/08/22 08:53 Dose: 5 mg Documented By: AFRICA Cefepime HCl 1 gm/ Sodium (Chloride) 50 mls @ 100 mls/hr IV Q8H [facility] Last Infusion: 02/08/22 09:26 Dose: 0 mls/hr Documented By: AFRICA Sodium Chloride (Ns) 1,000 mls @ 100 mls/hr IVCONT .Q10H [facility] Last Admin: 02/08/22 04:30 Dose: 100 mls/hr Documented By: MYNOR Ondansetron HCl (Ondansetron Hcl 4 Mg/2 Ml Vial) 4 mg IVPUSH Q8H PRN PRN Reason: Nausea and Vomiting Pharmacy Consult (Consult Rx Perform Med Rec) 1 each MISCELLANE ONCE PRN PRN Reason: Consult order Sodium Chloride (0.9 % Sodium Chloride Flush 3 Ml Syringe) 3 ml IVFLUSH QSHIFT [facility] Last Admin: 02/08/22 08:53 Dose: 3 ml Documented By: AFRICA Ticagrelor (Ticagrelor 90 Mg Tablet) 90 mg PO BID [facility] Last Admin: 02/08/22 08:53 Dose: 90 mg Documented By: AFRICA Labs CBC & Chem 7: 02/08/22 05:25 02/08/22 05:25 Labs: Laboratory Results - last 24 hr 02/07/22 02/07/22 02/07/22 14:16 14:20 14:20 MCV 87.9 MCH 28.0 MCHC 31.9 RDW 15.7 Plt Count 238 MPV 8.6 L Immature Gran % (Auto) 0.5 H Neut % (Auto) 71.6 Lymph % (Auto) 8.9 L [place] % (Auto) 15.7 H Eos % (Auto) 2.9 Baso % (Auto) 0.4 Lymph # (Auto) 0.5 L [place] # (Auto) 0.9 Eos # (Auto) 0.2 Baso # (Auto) 0.0 Abs Immat Gran (auto) 0.03 Absolute Neuts (auto) 3.9 Absolute Nucleated RBC 0.000 Nucleated RBC % (auto) 0.0 Anion Gap 15 Estim Creat Clear Calc 18.9 Estimated GFR 20 Random Glucose 124 H Fasting Glucose Lactic Acid Calcium 10.5 H D Magnesium 2.1 Total Bilirubin 1.1 H AST 9 D ALT < 6 Alkaline Phosphatase 62 Troponin I High Sens Total Protein 7.0 Albumin 3.1 L Urine Color Urine Appearance Urine pH Ur Specific [place]ma Urine Protein Urine Glucose (UA) Urine Ketones Urine Blood Urine Nitrite Ur Leukocyte Esterase Urine RBC Urine WBC Ur Squamous Epith Cells Urine Bacteria Hyaline Casts Urine Yeast Influenza Type A (PCR) NEGATIVE Influenza Type B (PCR) NEGATIVE RSV RNA Qual (PCR) NEGATIVE SARS-CoV-2 RNA (RT-PCR) NEGATIVE Crossmatch 02/07/22 02/07/22 02/07/22 14:20 15:14 16:50 MCV MCH MCHC RDW Plt Count MPV Immature Gran % (Auto) Neut % (Auto) Lymph % (Auto) [place] % (Auto) Eos % (Auto) Baso % (Auto) Lymph # (Auto) [place] # (Auto) Eos # (Auto) Baso # (Auto) Abs Immat Gran (auto) Absolute Neuts (auto) Absolute Nucleated RBC Nucleated RBC % (auto) Anion Gap Estim Creat Clear Calc Estimated GFR Random Glucose Fasting Glucose Lactic Acid 0.8 Calcium Magnesium Total Bilirubin AST ALT Alkaline Phosphatase Troponin I High Sens 10.7 D Total Protein Albumin Urine Color Yellow Urine Appearance Turbid Urine pH 8.5 Ur Specific [place]ma 1.010 Urine Protein 30 (1+) H Urine Glucose (UA) Negative Urine Ketones Negative Urine Blood Small (1+) H Urine Nitrite Negative Ur Leukocyte Esterase Large (3+) H Urine RBC 3-5 H Urine WBC >50 H Ur Squamous Epith Cells 6-10 Urine Bacteria 4+ Hyaline Casts 3-5 Urine Yeast Present Influenza Type A (PCR) Influenza Type B (PCR) RSV RNA Qual (PCR) SARS-CoV-2 RNA (RT-PCR) Crossmatch 02/08/22 02/08/22 02/08/22 05:25 05:25 09:26 MCV 88.4 MCH 28.6 MCHC 32.3 RDW 15.7 Plt Count 224 MPV 8.8 L Immature Gran % (Auto) 0.5 H Neut % (Auto) 61.9 Lymph % (Auto) 13.7 L [place] % (Auto) 17.8 H Eos % (Auto) 5.6 H Baso % (Auto) 0.5 Lymph # (Auto) 0.5 L [place] # (Auto) 0.7 Eos # (Auto) 0.2 Baso # (Auto) 0.0 Abs Immat Gran (auto) 0.02 Absolute Neuts (auto) 2.4 Absolute Nucleated RBC 0.000 Nucleated RBC % (auto) 0.0 Anion Gap 12 Estim Creat Clear Calc 23.4 Estimated GFR 25 Random Glucose Fasting Glucose 92 Lactic Acid Calcium 9.8 D Magnesium Total Bilirubin 1.1 H AST 6 ALT < 6 Alkaline Phosphatase 50 Troponin I High Sens Total Protein 6.1 L Albumin 2.6 L Urine Color Urine Appearance Urine pH Ur Specific [place]ma Urine Protein Urine Glucose (UA) Urine Ketones Urine Blood Urine Nitrite Ur Leukocyte Esterase Urine RBC Urine WBC Ur Squamous Epith Cells Urine Bacteria Hyaline Casts Urine Yeast Influenza Type A (PCR) Influenza Type B (PCR) RSV RNA Qual (PCR) SARS-CoV-2 RNA (RT-PCR) Crossmatch See Detail Microbiology Microbiology Results: Microbiology 02/07/22 15:43 Urine Culture - Preliminary Urine clean catch - Urine chung top Culture in progress. 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 Review of chart demonstrates is similar to the last presentation of admission end of November. 1. UTI (active urine sediment pending cultures) -blood in urine cultures obtained -cefepime 1 g Q 24 hours -consult urology for suprapubic tube change.... Continues to leak 2. ALETHEA on CKD 3 --improved with volume repletion -follow renals/LFTs 3. Hypertension (hypotensive on arrival) -improved with volume repletion -hold antihypertensives add back when appropriate 4. Coronary artery disease -2D echo 11/06 demonstrates an LVEF between 30 and 35% -cautious fluids overnight -continue dual antiplatelet agents Full code Heparin Patient will require an inpatient stay of at least 2 midnights going forward for IV antibiotics to treat urinary tract infection and await subsequent cultures Quality Stroke Does the patient have a stroke diagnosis?: No VTE Prior VTE?: No VTE Risk Level:: Medical - moderate - high VTE Device Contraindication: Treatment Not Indicated VTE Drug Contraindication: N/A - Med Ordered
--- NOTE | 2022-02-08 14:32 | MHC.CM.PN ---
PT CONFUSED, UNABLE TO PROVIDE RELIABLE HISTORY CM ATTEMPTED TO CONTACT PTS S/O, JENNIFER [phone] HOWEVER HER PHONE IS OUT OF SERVICE CM WILL REVISIT PT WHEN MENTATION IMPROVES PER PREVIOUS ADMISSIONS, PT LIVES WITH JAVIER RODRIGUEZ AND IS INDEPENDENT WITH CARE AT [facility] HE USES A CANE AT HOME HCP AND MOLST ON FILE PCP: DR ANNA RALPH V[facility] X [phone]
[2022-02-08] MEDS: Atorvastatin Calcium 40 MG TABLET PO (19:42)
[2022-02-09] MEDS: cefEPime HCl 1 GM in 0.9 % Sodium Chloride 50 ML IV ×3 (02:37→17:42)
[2022-02-09] MEDS: 0.9 % Sodium Chloride 1,000 ML 100 ML IVCONT ×2 (02:38→13:59)
[2022-02-09 03:12] VITALS: BP 138/70; PULSE 72; RESP 18; TEMP 36.3; O2SAT 97
[2022-02-09 05:46] LABS: MANUAL DIFF FLAG NO
[2022-02-09 05:52] LABS: Basophils Percent Auto 0.6 % (0-2); Eosinophils Absolute Auto 0.3 X10*3/uL (0.0-0.4); Hematocrit 27.2 % (42.0-52.0); Hemoglobin 8.7 g/dl (14.0-18.0); Imm Gran Abs Auto 0.03 X10*3/uL (0.00-0.03); Imm Gran Pct Auto 0.6 % (0.0-0.4); Lymphocytes Absolute Auto 0.8 X10*3/uL (1.2-4.9); Lymphocytes Percent Auto 15.4 % (20-40); Mean Corpuscular Hemoglobin 28.7 pg (27.0-33.0); Mean Corpuscular Volume 89.8 fL (80.0-98.0); Mean Platelet Volume 8.7 fL (9.4-12.4); Monocytes Absolute Auto 0.8 X10*3/uL (0.1-1.2); Monocytes Percent Auto 15.8 % (2-11); Neutrophils Absolute Auto 3.2 x10*3/uL (2.0-8.3); Neutrophils Percent Auto 62.6 % (45-73); Platelet Count 253 X10*3/uL (160-400); Red Blood Count 3.03 X10*6/uL (4.60-5.80); Red Cell Distribution Width 15.7 % (11.0-16.0); White Blood Count 5.1 X10*3/uL (4.8-10.8)
[2022-02-09 06:21] LABS: Alanine Aminotransferase < 6 U/L (0-40); Albumin Level 2.7 g/dL (3.5-5.0); Alkaline Phosphatase 51 U/L (39-117); Anion Gap 14 (12-20); Aspartate Amino Transferase 10 U/L (5-37); Bilirubin Total 1.6 mg/dL (0.0-1.0); Blood Urea Nitrogen 33 mg/dL (9-16); Calcium 10.2 mg/dL (8.4-10.2); Carbon Dioxide 18 mmol/L (22-29); Chloride 112 mmol/L (96-108); Creatinine Clr Calc Pharmacy 24.8; Estimated Glomerular Filt Rate 27; Glucose Fasting 92 mg/dL (60-99); Potassium 4.5 mmol/L (3.3-5.1); Sodium 139 mmol/L (135-145); Total Protein 6.6 g/dL (6.5-8.0)
[2022-02-09 07:45] VITALS: BP 125/63; PULSE 74; RESP 18; TEMP 36.8; O2SAT 98
--- NOTE | 2022-02-09 09:37 | MHC.CM.PN ---
CM WAS ABLE TO REACH S/O JENNIFER ([phone]) WHO STATES SHE IS A CAREGIVER FOR THE PT AND HE IS ACTIVE WITH [facility] FOR SN AND PT. RETURN REFERRAL SENT. [facility] WILL CONTINUE TO FOLLOW.
[2022-02-09] MEDS: Aspirin Enteric Coated 81 MG TABLET.DR PO (09:51)
[2022-02-09] MEDS: Ticagrelor 90 MG TABLET PO ×2 (09:51→21:01)
[2022-02-09] MEDS: Finasteride 5 MG TABLET PO (09:52)
--- NOTE | 2022-02-09 10:33 | P.CNUR_ITS ---
History of Present Illness Consult details Consult date: 02/09/22 Narrative: Leak around SPT 81-year-old male Suprapubic tube placed in October for urinary retention Leakage around tube secondary to bladder spasm Initiate anticholinergic Tolterodine medication order placed Review of Systems Constitutional: Constitutional: Reports as per HPI and Reports no additional constitutional complaints Cardiovascular: Cardiovascular: Reports as per HPI and Reports no additional cardiovascular complaints Respiratory: Respiratory: Reports as per HPI and Reports no additional respiratory complaints Gastrointestinal: Gastrointestinal: Reports as per HPI and Reports no additional gastrointestinal complaints Genitourinary: Genitourinary: Reports as per HPI Musculoskeletal: Musculoskeletal: Reports no additional musculoskeletal complaints and Reports as per HPI Neurologic: Reports system reviewed and no additional complaints, except as documented and Reports as per HPI [facility] Past Medical History Medical History (Updated 02/09/22 @ 10:34 by Jordan Meeks MD) Accelerated essential hypertension 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 Mother No problems noted. Surgical History Surgical History History of surgery Social History Social History Household Members: Significant Other Housing: [facility] Do you presently have visiting nurse or other home services: Yes Alcohol intake: never Patient Tobacco Use Status: Never used Tobacco e-Cigarette/Vaping Use: Never Used Second Hand Smoke Exposure: No Advance Directives Date on File: 09/21/21 service: No Current occupational status: unemployed and retired Meds Allergies Allergy/AdvReac Type Severity Reaction Status Date / Time No Known Allergies Allergy Verified 10/25/21 08:15 Active Medications: Current Medications Acetaminophen (Acetaminophen 325 Mg Tablet) 650 mg PO Q6H PRN PRN Reason: Pain, Mild (Pain Scale 1-3) Aspirin (Aspirin Enteric Coated 81 Mg Tablet.) 81 mg PO DAILY [facility] Last Admin: 02/09/22 09:51 Dose: 81 mg Atorvastatin Calcium (Atorvastatin Calcium 40 Mg Tablet) 40 mg PO BEDTIME [facility] Last Admin: 02/08/22 19:42 Dose: 40 mg Finasteride (Finasteride 5 Mg Tablet) 5 mg PO DAILY [facility] Last Admin: 02/09/22 09:52 Dose: 5 mg Cefepime HCl 1 gm/ Sodium (Chloride) 50 mls @ 100 mls/hr IV Q8H [facility] Last Admin: 02/09/22 10:01 Dose: 100 mls/hr Sodium Chloride (Ns) 1,000 mls @ 100 mls/hr IVCONT .Q10H [facility] Last Admin: 02/09/22 02:38 Dose: 100 mls/hr Ondansetron HCl (Ondansetron Hcl 4 Mg/2 Ml Vial) 4 mg IVPUSH Q8H PRN PRN Reason: Nausea and Vomiting Pharmacy Consult (Consult Rx Perform Med Rec) 1 each MISCELLANE ONCE PRN PRN Reason: Consult order Sodium Chloride (0.9 % Sodium Chloride Flush 3 Ml Syringe) 3 ml IVFLUSH QSHIFT [facility] Last Admin: 02/09/22 09:52 Dose: Not Given Ticagrelor (Ticagrelor 90 Mg Tablet) 90 mg PO BID [facility] Last Admin: 02/09/22 09:51 Dose: 90 mg Home Medications Medication Instructions Recorded Confirmed Last Taken Type aspirin 81 mg tablet,delayed 81 mg PO DAILY 12/12/21 02/07/22 02/07/22 History release lisinopril 5 mg tablet 5 mg PO DAILY 12/12/21 02/07/22 02/07/22 History rosuvastatin 10 mg tablet 1 tab PO BEDTIME 12/12/21 02/07/22 02/06/22 History ticagrelor 90 mg tablet 90 mg PO BID 12/12/21 02/07/22 02/06/22 History Physical Exam Vital Signs: Vital Signs: Last Vital Signs Temp 98.2 F 02/09/22 07:45 Pulse 74 02/09/22 07:45 Resp 18 02/09/22 07:45 BP 125/63 02/09/22 07:45 Pulse Ox 98 02/09/22 07:45 O2 Del Method 02/09/22 07:45 BMI result Body Mass Index 21.3 Const: General: cooperative, healthy appearing, comfortable and no acute distress Orientation/consciousness: patient oriented x3 HEENT: Face and sinus: Yes normal facial exam Mouth: moist mucous membranes Neck: Neck: Yes normal visual inspection, Yes full ROM and Yes trachea midline Chest: Chest palpation & inspection: normal inspection of the chest Resp: Effort & Inspection: normal respiratory effort, able to speak in complete sentences and no respiratory distress GI: Inspection: Yes normal to inspection Back/Spine/Pelvis: Cervical Spine: normal cervical lordosis Thoracic/Lumbar Spine: thoracic and lumbar spine normal to inspection Skin: General skin exam: no rashes or lesions noted Neuro: General: patient oriented x3, tone normal and moves all extremities Extrem: General: Yes normal to inspection and Yes capillary refill normal Results Labs Result diagrams: 02/09/22 05:23 02/09/22 05:23 Labs: Abnormal lab results 02/08/22 02/09/22 02/09/22 Range/Units 09:26 05:23 05:23 RBC 3.03 L (4.60-5.80) X10*6/uL Hgb 8.7 L (14.0-18.0) g/dl Hct 27.2 L (42.0-52.0) % MPV 8.7 L (9.4-12.4) fL Immature Gran % (Auto) 0.6 H (0.0-0.4) % Lymph % (Auto) 15.4 L (20-40) % [place] % (Auto) 15.8 H (2-11) % Eos % (Auto) 5.0 H (0-4) % Lymph # (Auto) 0.8 L (1.2-4.9) X10*3/uL Chloride 112 H (96-108) mmol/L Carbon Dioxide 18 L (22-29) mmol/L BUN 33 H (9-16) mg/dL Creatinine 2.35 H (0.5-1.4) mg/dL Total Bilirubin 1.6 H (0.0-1.0) mg/dL Albumin 2.7 L (3.5-5.0) g/dL Crossmatch See Detail Short CBC 02/09/22 Range/Units 05:23 WBC 5.1 (4.8-10.8) X10*3/uL Hgb 8.7 L (14.0-18.0) g/dl Hct 27.2 L (42.0-52.0) % Plt Count 253 (160-400) X10*3/uL BMP 11/25/22 05:23 Sodium 139 Potassium 4.5 Chloride 112 H Carbon Dioxide 18 L BUN 33 H Creatinine 2.35 H Calcium 10.2 Liver Function 02/09/22 Range/Units 05:23 Total Bilirubin 1.6 H (0.0-1.0) mg/dL AST 10 (5-37) U/L ALT < 6 (0-40) U/L Alkaline Phosphatase 51 (39-117) U/L Albumin 2.7 L (3.5-5.0) g/dL Urine 02/07/22 Range/Units 15:14 Urine Color Yellow Urine Appearance Turbid Urine pH 8.5 (5.0-9.0) Ur Specific [place] 1.010 (1.005-1.025) Urine Protein 30 (1+) H (Neg-Trace) mg/dL Urine Glucose (UA) Negative (Negative) mg/dL All other labs normal. Assessment and Plan (1) Bladder spasm: Status: Acute Plan Trial tolterodine Procedures Date of Service Date of Service: 02/09/22
[2022-02-09 11:31] VITALS: BP 115/59; PULSE 88; RESP 18; TEMP 36.4; O2SAT 100
--- NOTE | 2022-02-09 12:02 | HO.PM.IMPN ---
Subjective Subjective Date of Service: 02/09/22 Interval History: Remains confused but easily reoriented Review of Systems Unable to obtain Physical Exam Vital Signs: Vital Signs: Last Vital Signs Temp 97.6 F 02/09/22 11:31 Pulse 88 02/09/22 11:31 Resp 18 02/09/22 11:31 BP 115/59 L 02/09/22 11:31 Pulse Ox 100 02/09/22 11:31 O2 Del Method 02/09/22 11:31 BMI result Body Mass Index 21.3 Const: Other: Ill-appearing no acute distress Resp: Other: Clear to auscultation bilaterally no rales rhonchi wheezes Cardio: Other: No S4; positive S1-S2; no S3 murmurs rubs or gallops GI: Other: Soft nontender nondistended normoactive bowel sounds. Suprapubic site clean dry intact however leaking urine around catheter Extrem: Other: No edema bilaterally Objective Data Active Medications Acetaminophen (Acetaminophen 325 Mg Tablet) 650 mg PO Q6H PRN PRN Reason: Pain, Mild (Pain Scale 1-3) Aspirin (Aspirin Enteric Coated 81 Mg Tablet.) 81 mg PO DAILY [facility] Last Admin: 02/09/22 09:51 Dose: 81 mg Documented By: AFRICA Atorvastatin Calcium (Atorvastatin Calcium 40 Mg Tablet) 40 mg PO BEDTIME [facility] Last Admin: 02/08/22 19:42 Dose: 40 mg Documented By: ELIS Finasteride (Finasteride 5 Mg Tablet) 5 mg PO DAILY [facility] Last Admin: 02/09/22 09:52 Dose: 5 mg Documented By: AFRICA Cefepime HCl 1 gm/ Sodium (Chloride) 50 mls @ 100 mls/hr IV Q8H [facility] Last Infusion: 02/09/22 10:38 Dose: 0 mls/hr Documented By: AFRICA Sodium Chloride (Ns) 1,000 mls @ 100 mls/hr IVCONT .Q10H [facility] Last Admin: 02/09/22 02:38 Dose: 100 mls/hr Documented By: ELIS Ondansetron HCl (Ondansetron Hcl 4 Mg/2 Ml Vial) 4 mg IVPUSH Q8H PRN PRN Reason: Nausea and Vomiting Pharmacy Consult (Consult Rx Perform Med Rec) 1 each MISCELLANE ONCE PRN PRN Reason: Consult order Sodium Chloride (0.9 % Sodium Chloride Flush 3 Ml Syringe) 3 ml IVFLUSH QSHIFT [facility] Last Admin: 02/09/22 09:52 Dose: Not Given Documented By: AFRICA Non-Admin Reason: No Access Ticagrelor (Ticagrelor 90 Mg Tablet) 90 mg PO BID [facility] Last Admin: 02/09/22 09:51 Dose: 90 mg Documented By: AFRICA Tolterodine Tartrate (Tolterodine Tartrate La 4 Mg Cap.Er.24h) 4 mg PO DAILY [facility] Labs CBC & Chem 7: 02/09/22 05:23 02/09/22 05:23 Labs: Laboratory Results - last 24 hr 02/08/22 02/09/22 02/09/22 09:26 05:23 05:23 MCV 89.8 MCH 28.7 MCHC 32.0 RDW 15.7 Plt Count 253 MPV 8.7 L Immature Gran % (Auto) 0.6 H Neut % (Auto) 62.6 Lymph % (Auto) 15.4 L [place] % (Auto) 15.8 H Eos % (Auto) 5.0 H Baso % (Auto) 0.6 Lymph # (Auto) 0.8 L [place] # (Auto) 0.8 Eos # (Auto) 0.3 Baso # (Auto) 0.0 Abs Immat Gran (auto) 0.03 Absolute Neuts (auto) 3.2 Absolute Nucleated RBC 0.000 Nucleated RBC % (auto) 0.0 Anion Gap 14 Estim Creat Clear Calc 24.8 Estimated GFR 27 Fasting Glucose 92 Calcium 10.2 Total Bilirubin 1.6 H AST 10 ALT < 6 Alkaline Phosphatase 51 Total Protein 6.6 Albumin 2.7 L Blood Type AB Positive Antibody Screen NEGATIVE Crossmatch See Detail Microbiology Microbiology Results: Microbiology 02/07/22 15:43 Urine Culture - Preliminary Urine clean catch - Urine chung top Gram negative larissa 02/07/22 16:46 Blood Culture - Preliminary Blood - Venous No growth after 24 hours. 02/07/22 16:50 Blood Culture - Preliminary Blood - Venous No growth after 24 hours. 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 Review of chart demonstrates is similar to the last presentation of admission end of November. 1. UTI (active urine sediment GNR) -history of Pseudomonas -cefepime 1 g Q 24 hours -seen by Urology for suprapubic catheter leaking... Antispasmodic added 2. ALETHEA on CKD 3 --improved with volume repletion -follow renals/divalents 3. Hypertension (hypotensive on arrival) -improved with volume repletion -hold antihypertensives add back when appropriate 4. Coronary artery disease -2D echo 11/06 demonstrates an LVEF between 30 and 35% -cautious fluids overnight -continue dual antiplatelet agents -good response to transfusion (1 unit PRBC) -follow CBC Full code Heparin Patient will require ongoing hospitalization for IV antibiotics pending urine id Quality Stroke Does the patient have a stroke diagnosis?: No VTE Prior VTE?: No VTE Risk Level:: Medical - moderate - high VTE Device Contraindication: Treatment Not Indicated VTE Drug Contraindication: N/A - Med Ordered
--- NOTE | 2022-02-09 12:59 | P.CDIC_ITS ---
CDI Concurrent Query Documentation Clarification: PHYSICIAN'S DOCUMENTATION REQUEST Date of Query: 02/09/22 1253 Patient Name: Festus Valenzuela Admit Date: 02/07/22 Dear Doctor, A review of the medical record indicates additional documentation may be needed. Please review below and update the documentation accordingly. Risk Factors/Clinical Indicators/Treatments per MD progress note 02/09/22: ?UTI (active urine sediment GNR) -history of Pseudomonas -cefepime 1 g Q 24 hours -seen by Urology for suprapubic catheter leaking...? Antispasmodic added Please clarify the relationship between these conditions: * Yes, UTI is related to / associated with / due to supra pubic catheter * No, UTI is not related to/associated with/due to supra pubic catheter * Unable to determine Use of terms such as suspected, likely, concern for, or probable (associated with a specific diagnosis that is being evaluated, monitored, or treated as if it exists) are acceptable and can be coded in the inpatient setting, when documented at the time of discharge. Thank you, Cherelle Pruitt , RN Extension: [phone] Please use your independent medical judgment in providing your response. THIS QUERY IS PART OF THE PERMANENT MEDICAL RECORD Provider Response: Other Other Diagnosis: UTI related to suprapubic catheter
[2022-02-09] MEDS: Tolterodine Tartrate LA 4 MG CAP.ER.24H PO (13:59)
--- NOTE | 2022-02-09 14:25 | MHC.CM.PN ---
PER MD ROUNDS, PT NOT MEDICALLY READY FOR DC TODAY (AWAITING ID INPUT, URINE CULTURES) WILL NEED STR PLACEMENT, FAMILY REQUESTS REFERRAL TO [facility] ON DC, REFERRAL SENT AND ACCEPTED PENDING COVID TEST. CM WILL CONTINUE TO FOLLOW.
[2022-02-09 15:15] VITALS: BP 125/65; PULSE 83; RESP 18; TEMP 37; O2SAT 98
[2022-02-09] MEDS: 0.9 % Sodium Chloride Flush 3 ML SYRINGE IVFLUSH ×2 (15:32→21:01)
[2022-02-09 18:57] VITALS: BP 107/81; PULSE 108; RESP 18; TEMP 36.6; O2SAT 99
[2022-02-09] MEDS: Atorvastatin Calcium 40 MG TABLET PO (21:01)
[2022-02-10] VITALS (7 sets, daily range): BP systolic 147–156; BP diastolic 70–80; PULSE 75–99; RESP 17–20; TEMP 36.1–37.7; O2SAT 97–99
[2022-02-10] MEDS: cefEPime HCl 1 GM in 0.9 % Sodium Chloride 50 ML IV ×3 (01:22→17:24)
[2022-02-10 06:09] LABS: MANUAL DIFF FLAG NO
[2022-02-10 06:26] LABS: Basophils Percent Auto 0.9 % (0-2); Eosinophils Absolute Auto 0.1 X10*3/uL (0.0-0.4); Eosinophils Percent Auto 2.7 % (0-4); Hematocrit 27.6 % (42.0-52.0); Hemoglobin 8.9 g/dl (14.0-18.0); Imm Gran Abs Auto 0.02 X10*3/uL (0.00-0.03); Imm Gran Pct Auto 0.4 % (0.0-0.4); Lymphocytes Absolute Auto 0.7 X10*3/uL (1.2-4.9); Lymphocytes Percent Auto 15.5 % (20-40); Mean Corpuscular HGB Conc 32.2 g/dl (31.0-36.0); Mean Corpuscular Hemoglobin 28.8 pg (27.0-33.0); Mean Corpuscular Volume 89.3 fL (80.0-98.0); Mean Platelet Volume 8.8 fL (9.4-12.4); Monocytes Absolute Auto 0.7 X10*3/uL (0.1-1.2); Monocytes Percent Auto 15.9 % (2-11); Neutrophils Absolute Auto 2.9 x10*3/uL (2.0-8.3); Neutrophils Percent Auto 64.6 % (45-73); Platelet Count 267 X10*3/uL (160-400); Red Blood Count 3.09 X10*6/uL (4.60-5.80); Red Cell Distribution Width 15.9 % (11.0-16.0); White Blood Count 4.5 X10*3/uL (4.8-10.8)
[2022-02-10 06:28] LABS: Alanine Aminotransferase 6 U/L (0-40); Albumin Level 2.8 g/dL (3.5-5.0); Alkaline Phosphatase 51 U/L (39-117); Anion Gap 14 (12-20); Aspartate Amino Transferase 9 U/L (5-37); Bilirubin Total 1.3 mg/dL (0.0-1.0); Blood Urea Nitrogen 35 mg/dL (9-16); Calcium 10.3 mg/dL (8.4-10.2); Carbon Dioxide 18 mmol/L (22-29); Chloride 111 mmol/L (96-108); Creatinine Clr Calc Pharmacy 28.6; Estimated Glomerular Filt Rate 31; Glucose Fasting 93 mg/dL (60-99); Potassium 3.9 mmol/L (3.3-5.1); Sodium 139 mmol/L (135-145); Total Protein 6.6 g/dL (6.5-8.0)
[2022-02-10] MEDS: Ticagrelor 90 MG TABLET PO ×2 (09:26→21:09)
[2022-02-10] MEDS: 0.9 % Sodium Chloride Flush 3 ML SYRINGE IVFLUSH ×3 (09:26→21:09)
[2022-02-10] MEDS: Tolterodine Tartrate LA 4 MG CAP.ER.24H PO (09:26)
[2022-02-10] MEDS: Finasteride 5 MG TABLET PO (09:27)
[2022-02-10] MEDS: Aspirin Enteric Coated 81 MG TABLET.DR PO (09:27)
--- NOTE | 2022-02-10 11:47 | P.PNIM_ITS ---
Subjective Subjective Date of Service: 02/10/22 Interval History: Remains confused. No acute issues Review of Systems Unable to obtain Physical Exam Vital Signs: Vital Signs: Last Vital Signs Temp 99.9 F 02/10/22 07:31 Pulse 88 02/10/22 07:31 Resp 19 02/10/22 07:31 BP 147/80 H 02/10/22 07:31 Pulse Ox 98 02/10/22 07:31 O2 Del Method 02/10/22 07:31 BMI result Body Mass Index 21.3 Const: Other: Ill-appearing no acute distress Resp: Other: Clear to auscultation bilaterally no rales rhonchi wheezes Cardio: Other: No S4; positive S1-S2; no S3 murmurs rubs or gallops GI: Other: Soft nontender nondistended normoactive bowel sounds. Suprapubic site clean dry intact however leaking urine around catheter Extrem: Other: No edema bilaterally Objective Data Active Medications Acetaminophen (Acetaminophen 325 Mg Tablet) 650 mg PO Q6H PRN PRN Reason: Pain, Mild (Pain Scale 1-3) Aspirin (Aspirin Enteric Coated 81 Mg Tablet.) 81 mg PO DAILY [facility] Last Admin: 02/10/22 09:27 Dose: 81 mg Documented By: LIDIA Atorvastatin Calcium (Atorvastatin Calcium 40 Mg Tablet) 40 mg PO BEDTIME [facility] Last Admin: 02/09/22 21:01 Dose: 40 mg Documented By: ROSI Finasteride (Finasteride 5 Mg Tablet) 5 mg PO DAILY [facility] Last Admin: 02/10/22 09:27 Dose: 5 mg Documented By: LIDIA Cefepime HCl 1 gm/ Sodium (Chloride) 50 mls @ 100 mls/hr IV Q8H [facility] Last Infusion: 02/10/22 10:09 Dose: 0 mls/hr Documented By: LIDIA Ondansetron HCl (Ondansetron Hcl 4 Mg/2 Ml Vial) 4 mg IVPUSH Q8H PRN PRN Reason: Nausea and Vomiting Pharmacy Consult (Consult Rx Perform Med Rec) 1 each MISCELLANE ONCE PRN PRN Reason: Consult order Sodium Chloride (0.9 % Sodium Chloride Flush 3 Ml Syringe) 3 ml IVFLUSH QSHIFT [facility] Last Admin: 02/10/22 09:26 Dose: 3 ml Documented By: LIDIA Ticagrelor (Ticagrelor 90 Mg Tablet) 90 mg PO BID [facility] Last Admin: 02/10/22 09:26 Dose: 90 mg Documented By: LIDIA Tolterodine Tartrate (Tolterodine Tartrate La 4 Mg Cap.Er.24h) 4 mg PO DAILY S Last Admin: 02/10/22 09:26 Dose: 4 mg Documented By: LIDIA Labs CBC & Chem 7: 02/10/22 05:52 02/10/22 05:52 Labs: Laboratory Results - last 24 hr 02/10/22 02/10/22 05:52 05:52 MCV 89.3 MCH 28.8 MCHC 32.2 RDW 15.9 Plt Count 267 MPV 8.8 L Immature Gran % (Auto) 0.4 Neut % (Auto) 64.6 Lymph % (Auto) 15.5 L [place] % (Auto) 15.9 H Eos % (Auto) 2.7 Baso % (Auto) 0.9 Lymph # (Auto) 0.7 L [place] # (Auto) 0.7 Eos # (Auto) 0.1 Baso # (Auto) 0.0 Abs Immat Gran (auto) 0.02 Absolute Neuts (auto) 2.9 Absolute Nucleated RBC 0.000 Nucleated RBC % (auto) 0.0 Anion Gap 14 Estim Creat Clear Calc 28.6 Estimated GFR 31 Fasting Glucose 93 Calcium 10.3 H Total Bilirubin 1.3 H AST 9 ALT 6 Alkaline Phosphatase 51 Total Protein 6.6 Albumin 2.8 L Microbiology Microbiology Results: Microbiology 02/07/22 15:43 Urine Culture - Preliminary Urine clean catch - Urine chung top Pseudomonas aeruginosa Enterococcus/Streptococcus sp 02/07/22 16:46 Blood Culture - Preliminary Blood - Venous No growth after 48 hours. 02/07/22 16:50 Blood Culture - Preliminary Blood - Venous No growth after 48 hours. 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 Review of chart demonstrates is similar to the last presentation of admission end of November. 1. UTI (active urine sediment GNR) -history of Pseudomonas -cefepime 1 g Q 24 hours -seen by Urology for suprapubic catheter leaking... Antispasmodic added 2. ALETHEA on CKD 3 --improved with volume repletion -follow renals/divalents 3. Hypertension -improved with volume repletion -hold antihypertensives add back when appropriate 4. Coronary artery disease -2D echo 11/06 demonstrates an LVEF between 30 and 35% -cautious fluids overnight -continue dual antiplatelet agents -follow CBC Full code Heparin Patient will require ongoing hospitalization for IV antibiotics pending urine id Quality Stroke Does the patient have a stroke diagnosis?: No VTE Prior VTE?: No VTE Risk Level:: Medical - moderate - high VTE Device Contraindication: Treatment Not Indicated VTE Drug Contraindication: N/A - Med Ordered
[2022-02-10] MEDS: Atorvastatin Calcium 40 MG TABLET PO (21:09)
[2022-02-11] MEDS: cefEPime HCl 1 GM in 0.9 % Sodium Chloride 50 ML IV ×3 (01:22→18:00)
[2022-02-11 03:23] VITALS: BP 157/84; PULSE 97; RESP 16; TEMP 36.5; O2SAT 97
[2022-02-11 06:04] LABS: MANUAL DIFF FLAG NO
[2022-02-11 06:25] LABS: Basophils Percent Auto 0.6 % (0-2); Eosinophils Absolute Auto 0.2 X10*3/uL (0.0-0.4); Eosinophils Percent Auto 2.7 % (0-4); Hematocrit 28.5 % (42.0-52.0); Hemoglobin 9.5 g/dl (14.0-18.0); Imm Gran Abs Auto 0.02 X10*3/uL (0.00-0.03); Imm Gran Pct Auto 0.3 % (0.0-0.4); Lymphocytes Absolute Auto 0.8 X10*3/uL (1.2-4.9); Lymphocytes Percent Auto 11.9 % (20-40); Mean Corpuscular HGB Conc 33.3 g/dl (31.0-36.0); Mean Corpuscular Hemoglobin 29.7 pg (27.0-33.0); Mean Corpuscular Volume 89.1 fL (80.0-98.0); Mean Platelet Volume 8.9 fL (9.4-12.4); Monocytes Absolute Auto 0.9 X10*3/uL (0.1-1.2); Neutrophils Absolute Auto 4.7 x10*3/uL (2.0-8.3); Neutrophils Percent Auto 70.5 % (45-73); Platelet Count 269 X10*3/uL (160-400); Red Cell Distribution Width 15.8 % (11.0-16.0); White Blood Count 6.6 X10*3/uL (4.8-10.8)
[2022-02-11 06:40] LABS: Alanine Aminotransferase < 6 U/L (0-40); Alkaline Phosphatase 52 U/L (39-117); Anion Gap 15 (12-20); Aspartate Amino Transferase 9 U/L (5-37); Bilirubin Total 1.1 mg/dL (0.0-1.0); Blood Urea Nitrogen 31 mg/dL (9-16); Calcium 10.9 mg/dL (8.4-10.2); Carbon Dioxide 17 mmol/L (22-29); Chloride 112 mmol/L (96-108); Creatinine Clr Calc Pharmacy 26.5; Estimated Glomerular Filt Rate 29; Glucose Fasting 136 mg/dL (60-99); Potassium 3.5 mmol/L (3.3-5.1); Sodium 140 mmol/L (135-145); Total Protein 7.1 g/dL (6.5-8.0)
[2022-02-11 07:58] VITALS: BP 161/92; PULSE 115; RESP 17; TEMP 36.7; O2SAT 97
[2022-02-11] MEDS: 0.9 % Sodium Chloride Flush 3 ML SYRINGE IVFLUSH ×2 (09:22→20:41)
[2022-02-11] MEDS: Aspirin Enteric Coated 81 MG TABLET.DR PO (09:23)
[2022-02-11] MEDS: Ticagrelor 90 MG TABLET PO ×2 (09:23→20:41)
[2022-02-11] MEDS: Finasteride 5 MG TABLET PO (09:23)
[2022-02-11] MEDS: Tolterodine Tartrate LA 4 MG CAP.ER.24H PO (09:23)
[2022-02-11] MEDS: Dextrose 5 % and Lactated Ring 1,000 ML 100 ML IVCONT ×2 (11:16→20:41)
[2022-02-11] MEDS: OLANZapine 2.5 MG TABLET PO (11:16)
[2022-02-11 12:00] VITALS: BP 124/76; PULSE 82; RESP 19; TEMP 36.4; O2SAT 98
--- NOTE | 2022-02-11 13:03 | P.PNIM_ITS ---
Subjective Subjective Date of Service: 02/11/22 Interval History: Remains confused; seen snakes in his bed. No acute issues overnight Review of Systems Unable to obtain Physical Exam Vital Signs: Vital Signs: Last Vital Signs Temp 97.5 F 02/11/22 12:00 Pulse 82 02/11/22 12:00 Resp 19 02/11/22 12:00 BP 124/76 02/11/22 12:00 Pulse Ox 98 02/11/22 12:00 O2 Del Method 02/11/22 12:00 BMI result Body Mass Index 21.3 Const: Other: Ill-appearing no acute distress Resp: Other: Clear to auscultation bilaterally no rales rhonchi wheezes Cardio: Other: No S4; positive S1-S2; no S3 murmurs rubs or gallops GI: Other: Soft nontender nondistended normoactive bowel sounds. Suprapubic site clean dry intact however leaking urine around catheter Extrem: Other: No edema bilaterally Objective Data Active Medications Acetaminophen (Acetaminophen 325 Mg Tablet) 650 mg PO Q6H PRN PRN Reason: Pain, Mild (Pain Scale 1-3) Aspirin (Aspirin Enteric Coated 81 Mg Tablet.) 81 mg PO DAILY [facility] Last Admin: 02/11/22 09:23 Dose: 81 mg Documented By: LIDIA Atorvastatin Calcium (Atorvastatin Calcium 40 Mg Tablet) 40 mg PO BEDTIME [facility] Last Admin: 02/10/22 21:09 Dose: 40 mg Documented By: ROSI Finasteride (Finasteride 5 Mg Tablet) 5 mg PO DAILY [facility] Last Admin: 02/11/22 09:23 Dose: 5 mg Documented By: LIDIA Cefepime HCl 1 gm/ Sodium (Chloride) 50 mls @ 100 mls/hr IV Q8H [facility] Last Infusion: 02/11/22 10:27 Dose: 0 mls/hr Documented By: LIDIA Dextrose/Lactated Ringer's (D5lr) 1,000 mls @ 100 mls/hr IVCONT .Q10H [facility] Last Admin: 02/11/22 11:16 Dose: 100 mls/hr Documented By: LIDIA Olanzapine (Olanzapine 2.5 Mg Tablet) 2.5 mg PO DAILY [facility] Last Admin: 02/11/22 11:16 Dose: 2.5 mg Documented By: LIDIA Ondansetron HCl (Ondansetron Hcl 4 Mg/2 Ml Vial) 4 mg IVPUSH Q8H PRN PRN Reason: Nausea and Vomiting Pharmacy Consult (Consult Rx Perform Med Rec) 1 each MISCELLANE ONCE PRN PRN Reason: Consult order Sodium Chloride (0.9 % Sodium Chloride Flush 3 Ml Syringe) 3 ml IVFLUSH QSHIFT [facility] Last Admin: 02/11/22 09:22 Dose: 3 ml Documented By: LIDIA Ticagrelor (Ticagrelor 90 Mg Tablet) 90 mg PO BID [facility] Last Admin: 02/11/22 09:23 Dose: 90 mg Documented By: LIDIA Tolterodine Tartrate (Tolterodine Tartrate La 4 Mg Cap.Er.24h) 4 mg PO DAILY [facility] Last Admin: 02/11/22 09:23 Dose: 4 mg Documented By: LIDIA Labs CBC & Chem 7: 02/11/22 05:52 02/11/22 05:52 Labs: Laboratory Results - last 24 hr 02/11/22 02/11/22 05:52 05:52 MCV 89.1 MCH 29.7 MCHC 33.3 RDW 15.8 Plt Count 269 MPV 8.9 L Immature Gran % (Auto) 0.3 Neut % (Auto) 70.5 Lymph % (Auto) 11.9 L [place] % (Auto) 14.0 H Eos % (Auto) 2.7 Baso % (Auto) 0.6 Lymph # (Auto) 0.8 L [place] # (Auto) 0.9 Eos # (Auto) 0.2 Baso # (Auto) 0.0 Abs Immat Gran (auto) 0.02 Absolute Neuts (auto) 4.7 Absolute Nucleated RBC 0.000 Nucleated RBC % (auto) 0.0 Anion Gap 15 Estim Creat Clear Calc 26.5 Estimated GFR 29 Fasting Glucose 136 H Calcium 10.9 H Total Bilirubin 1.1 H AST 9 ALT < 6 Alkaline Phosphatase 52 Total Protein 7.1 Albumin 3.0 L Microbiology Microbiology Results: Microbiology 02/07/22 15:43 Urine Culture - Final Urine clean catch - Urine chung top Pseudomonas aeruginosa Enterococcus faecalis Assessment and Plan (1) UTI (urinary tract infection): Status: Acute (2) ALETHEA (acute kidney injury): Status: Acute (3) Accelerated essential hypertension: Status: Acute Plan 81-year-old male with 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 Review of chart demonstrates is similar to the last presentation of admission end of November. 1. UTI -Pseudomonas/VRE in urine cultures -cefepime 1 g Q 24 hours; add Ampicillin for VRE -seen by Urology for suprapubic catheter leaking... Antispasmodic added - 2. ALETHEA on CKD 3 --improved with volume repletion -follow renals/divalents 3. Hypertension -improved with volume repletion -hold antihypertensives add back when appropriate 4. Coronary artery disease -2D echo 11/06 demonstrates an LVEF between 30 and 35% -cautious fluids overnight -continue dual antiplatelet agents -follow CBC Full code Heparin Patient will require ongoing hospitalization for IV antibiotics pending urine id Quality Stroke Does the patient have a stroke diagnosis?: No VTE Prior VTE?: No VTE Risk Level:: Medical - moderate - high VTE Device Contraindication: Treatment Not Indicated VTE Drug Contraindication: N/A - Med Ordered
[2022-02-11] MEDS: Ampicillin Sodium 2 GM in 0.9 % Sodium Chloride 100 ML IV (15:14)
[2022-02-11 15:22] VITALS: BP 130/75; PULSE 77; RESP 16; TEMP 36.1; O2SAT 98
[2022-02-11 19:17] VITALS: BP 149/72; PULSE 71; RESP 14; TEMP 35.9; O2SAT 99
[2022-02-11] MEDS: Atorvastatin Calcium 40 MG TABLET PO (20:41)
[2022-02-11 23:20] VITALS: BP 132/62; PULSE 70; RESP 18; TEMP 36.4; O2SAT 97
[2022-02-12] MEDS: Ampicillin Sodium 2 GM in 0.9 % Sodium Chloride 100 ML IV ×2 (00:12→07:22)
[2022-02-12] MEDS: cefEPime HCl 1 GM in 0.9 % Sodium Chloride 50 ML IV ×3 (02:13→17:17)
[2022-02-12] MEDS: Aspirin Enteric Coated 81 MG TABLET.DR PO (07:24)
[2022-02-12] MEDS: Tolterodine Tartrate LA 4 MG CAP.ER.24H PO (07:24)
[2022-02-12] MEDS: Ticagrelor 90 MG TABLET PO ×2 (07:24→20:31)
[2022-02-12] MEDS: OLANZapine 2.5 MG TABLET PO (07:24)
[2022-02-12] MEDS: Finasteride 5 MG TABLET PO (07:24)
[2022-02-12 07:51] VITALS: BP 138/60; PULSE 64; RESP 18; TEMP 36.8; O2SAT 99
[2022-02-12] MEDS: Dextrose 5 % and Lactated Ring 1,000 ML 100 ML IVCONT ×2 (08:21→18:02)
--- NOTE | 2022-02-12 10:00 | P.PNIM_ITS ---
Subjective Subjective Date of Service: 02/12/22 Interval History: Zyprexa with fair affects. Still leaking copious amounts around suprapubic tube Review of Systems Unable to obtain Physical Exam Vital Signs: Vital Signs: Last Vital Signs Temp 98.2 F 02/12/22 07:51 Pulse 64 02/12/22 07:51 Resp 18 02/12/22 07:51 BP 138/60 02/12/22 07:51 Pulse Ox 99 02/12/22 07:51 O2 Del Method 02/12/22 07:51 BMI result Body Mass Index 21.3 Const: Other: Ill-appearing no acute distress Resp: Other: Clear to auscultation bilaterally no rales rhonchi wheezes Cardio: Other: No S4; positive S1-S2; no S3 murmurs rubs or gallops GI: Other: Soft nontender nondistended normoactive bowel sounds. Suprapubic site clean dry intact however leaking urine around catheter : Other: Urine leaking around suprapubic tube. Site somewhat excoriated Extrem: Other: No edema bilaterally Objective Data Active Medications Acetaminophen (Acetaminophen 325 Mg Tablet) 650 mg PO Q6H PRN PRN Reason: Pain, Mild (Pain Scale 1-3) Aspirin (Aspirin Enteric Coated 81 Mg Tablet.Dr) 81 mg PO DAILY [facility] Last Admin: 02/12/22 07:24 Dose: 81 mg Documented By: CORY Atorvastatin Calcium (Atorvastatin Calcium 40 Mg Tablet) 40 mg PO BEDTIME [facility] Last Admin: 02/11/22 20:41 Dose: 40 mg Documented By: CORTNEY Finasteride (Finasteride 5 Mg Tablet) 5 mg PO DAILY [facility] Last Admin: 02/12/22 07:24 Dose: 5 mg Documented By: CORY Cefepime HCl 1 gm/ Sodium (Chloride) 50 mls @ 100 mls/hr IV Q8H [facility] Last Infusion: 02/12/22 04:25 Dose: 0 mls/hr Documented By: CORTNEY Dextrose/Lactated Ringer's (D5lr) 1,000 mls @ 100 mls/hr IVCONT .Q10H [facility] Last Admin: 02/12/22 08:21 Dose: 100 mls/hr Documented By: CORY Ampicillin Sodium 2 gm/ Sodium (Chloride) 100 mls @ 200 mls/hr IV Q8H [facility] Last Infusion: 02/12/22 07:52 Dose: 0 mls/hr Documented By: CORY Olanzapine (Olanzapine 2.5 Mg Tablet) 2.5 mg PO DAILY [facility] Last Admin: 02/12/22 07:24 Dose: 2.5 mg Documented By: CORY Ondansetron HCl (Ondansetron Hcl 4 Mg/2 Ml Vial) 4 mg IVPUSH Q8H PRN PRN Reason: Nausea and Vomiting Pharmacy Consult (Consult Rx Perform Med Rec) 1 each MISCELLANE ONCE PRN PRN Reason: Consult order Sodium Chloride (0.9 % Sodium Chloride Flush 3 Ml Syringe) 3 ml IVFLUSH QSHIFT [facility] Last Admin: 02/12/22 08:21 Dose: Not Given Documented By: CORY Non-Admin Reason: IV Running Ticagrelor (Ticagrelor 90 Mg Tablet) 90 mg PO BID [facility] Last Admin: 02/12/22 07:24 Dose: 90 mg Documented By: CORY Tolterodine Tartrate (Tolterodine Tartrate La 4 Mg Cap.Er.24h) 4 mg PO DAILY [facility] Last Admin: 02/12/22 07:24 Dose: 4 mg Documented By: CORY Labs CBC & Chem 7: 02/11/22 05:52 02/11/22 05:52 Microbiology Microbiology Results: Microbiology 02/07/22 15:43 Urine Culture - Final Urine clean catch - Urine chung top Pseudomonas aeruginosa Enterococcus faecalis Assessment and Plan (1) UTI (urinary tract infection): Status: Acute (2) ALETHEA (acute kidney injury): Status: Acute (3) Accelerated essential hypertension: Status: Acute (4) Coronary artery disease: Status: Acute (5) Dementia with psychosis: Status: Acute Plan 81-year-old male with 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 Review of chart demonstrates is similar to the last presentation of admission end of November. 1. UTI -Pseudomonas/VRE in urine cultures; urine VRE; Pseudomonas in blood -cefepime 1 g Q 24 hours; add Ampicillin for VRE -seen by Urology for suprapubic catheter leaking... Antispasmodic ineffective. Will ask to recheck -ID consult 2. ALETHEA on CKD 3 --improved with volume repletion -follow renals/divalents 3. Hypertension -improved with volume repletion -hold antihypertensives add back when appropriate 4. Coronary artery disease -2D echo 11/06 demonstrates an LVEF between 30 and 35% -cautious fluids -continue dual antiplatelet agents -follow CBC 5. Dementia with mild psychotic features -Zyprexa with good effect Full code Heparin Patient will require ongoing hospitalization for IV antibiotics pending urine id Quality Stroke Does the patient have a stroke diagnosis?: No VTE Prior VTE?: No VTE Risk Level:: Medical - moderate - high VTE Device Contraindication: Treatment Not Indicated VTE Drug Contraindication: N/A - Med Ordered
--- NOTE | 2022-02-12 10:10 | MHC.CLN ---
NUTRITION CONSULT FOR SKIN. PATIENT WITH ABRASION TO NOSE. DIET=REGULAR. INTAKE APPEARS VARIABLE WITH NO INTAKE AT SOME MEALS. ADDING ENSURE BID TO IMPROVE NUTRITIONAL INTAKE. PROVIDES ADDITIONAL 700 KCALS, 40 G PROTEIN.
[2022-02-12 10:35] LABS: MANUAL DIFF FLAG NO
[2022-02-12 10:40] LABS: Basophils Percent Auto 0.8 % (0-2); Eosinophils Absolute Auto 0.2 X10*3/uL (0.0-0.4); Eosinophils Percent Auto 5.6 % (0-4); Hematocrit 26.5 % (42.0-52.0); Hemoglobin 8.6 g/dl (14.0-18.0); Imm Gran Abs Auto 0.02 X10*3/uL (0.00-0.03); Imm Gran Pct Auto 0.6 % (0.0-0.4); Lymphocytes Absolute Auto 0.7 X10*3/uL (1.2-4.9); Lymphocytes Percent Auto 19.6 % (20-40); Mean Corpuscular HGB Conc 32.5 g/dl (31.0-36.0); Mean Corpuscular Hemoglobin 29.3 pg (27.0-33.0); Mean Corpuscular Volume 90.1 fL (80.0-98.0); Mean Platelet Volume 8.5 fL (9.4-12.4); Monocytes Absolute Auto 0.6 X10*3/uL (0.1-1.2); Monocytes Percent Auto 16.2 % (2-11); Neutrophils Percent Auto 57.2 % (45-73); Platelet Count 201 X10*3/uL (160-400); Red Blood Count 2.94 X10*6/uL (4.60-5.80); White Blood Count 3.6 X10*3/uL (4.8-10.8)
[2022-02-12 11:05] LABS: Alanine Aminotransferase 6 U/L (0-40); Albumin Level 2.7 g/dL (3.5-5.0); Alkaline Phosphatase 50 U/L (39-117); Anion Gap 12 (12-20); Aspartate Amino Transferase 9 U/L (5-37); Blood Urea Nitrogen 27 mg/dL (9-16); Calcium 10.2 mg/dL (8.4-10.2); Carbon Dioxide 22 mmol/L (22-29); Chloride 113 mmol/L (96-108); Creatinine Clr Calc Pharmacy 29.1; Estimated Glomerular Filt Rate 32; Glucose Fasting 103 mg/dL (60-99); Potassium 3.5 mmol/L (3.3-5.1); Sodium 143 mmol/L (135-145); Total Protein 6.3 g/dL (6.5-8.0)
[2022-02-12 11:18] VITALS: BP 143/67; PULSE 66; RESP 17; TEMP 36.5; O2SAT 97
--- NOTE | 2022-02-12 14:24 | W.PM.IDCN ---
History of Present Illness Data of Consult Service Date: 02/12/22 Requesting physician: Js Barber Primary Care Provider: Unknown Physician HPI Reason for consult: sepsis ,Pseudomonas bacteremia He presents with one day of dizziness and weakness. He is not good historian but doesnt complaint at this time of urinary symptoms. He has creatinine of 3.0. He sees Dr Meeks and has had catheter exchange every three weeks and has had suprapubic catheter. He has leakage due to spasm around tue. He has Pseudomonas bacteremia and enterococcus and Pseudomonas in urine. I had seen him September 12 with morganella,proteus ,strep bacteremia. He has nephrolithiasis and has had elevated PSA and thrombosis penile artery. 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 Mother No problems noted. Family history: reviewed and not pertinent Surgical History Surgical History History of surgery Social History Social History Household Members: Significant [facility] Do you presently have visiting nurse or other home services: Yes Alcohol intake: never Patient Tobacco Use Status: Never used Tobacco e-Cigarette/Vaping Use: Never Used Second Hand Smoke Exposure: No Advance Directives Date on File: 09/21/21 service: No Current occupational status: unemployed and retired Meds Allergies Allergy/AdvReac Type Severity Reaction Status Date / Time No Known Allergies Allergy Verified 10/25/21 08:15 Active Medications: Current Medications Acetaminophen (Acetaminophen 325 Mg Tablet) 650 mg PO Q6H PRN PRN Reason: Pain, Mild (Pain Scale 1-3) Aspirin (Aspirin Enteric Coated 81 Mg Tablet.) 81 mg PO DAILY [facility] Last Admin: 02/12/22 07:24 Dose: 81 mg Atorvastatin Calcium (Atorvastatin Calcium 40 Mg Tablet) 40 mg PO BEDTIME [facility] Last Admin: 02/11/22 20:41 Dose: 40 mg Finasteride (Finasteride 5 Mg Tablet) 5 mg PO DAILY [facility] Last Admin: 02/12/22 07:24 Dose: 5 mg Cefepime HCl 1 gm/ Sodium (Chloride) 50 mls @ 100 mls/hr IV Q8H [facility] Last Infusion: 02/12/22 11:21 Dose: Infused Dextrose/Lactated Ringer's (D5lr) 1,000 mls @ 100 mls/hr IVCONT .Q10H [facility] Last Admin: 02/12/22 08:21 Dose: 100 mls/hr Ampicillin Sodium 2 gm/ Sodium (Chloride) 100 mls @ 200 mls/hr IV Q8H [facility] Last Infusion: 02/12/22 07:52 Dose: Infused Olanzapine (Olanzapine 2.5 Mg Tablet) 2.5 mg PO DAILY [facility] Last Admin: 02/12/22 07:24 Dose: 2.5 mg Ondansetron HCl (Ondansetron Hcl 4 Mg/2 Ml Vial) 4 mg IVPUSH Q8H PRN PRN Reason: Nausea and Vomiting Pharmacy Consult (Consult Rx Perform Med Rec) 1 each MISCELLANE ONCE PRN PRN Reason: Consult order Sodium Chloride (0.9 % Sodium Chloride Flush 3 Ml Syringe) 3 ml IVFLUSH QSHIFT [facility] Last Admin: 02/12/22 08:21 Dose: Not Given Ticagrelor (Ticagrelor 90 Mg Tablet) 90 mg PO BID [facility] Last Admin: 02/12/22 07:24 Dose: 90 mg Tolterodine Tartrate (Tolterodine Tartrate La 4 Mg Cap.Er.24h) 4 mg PO DAILY [facility] Last Admin: 02/12/22 07:24 Dose: 4 mg Home Medications Medication Instructions Recorded Confirmed Last Taken Type aspirin 81 mg tablet,delayed 81 mg PO DAILY 12/12/21 02/07/22 02/07/22 History release lisinopril 5 mg tablet 5 mg PO DAILY 12/12/21 02/07/22 02/07/22 History rosuvastatin 10 mg tablet 1 tab PO BEDTIME 12/12/21 02/07/22 02/06/22 History ticagrelor 90 mg tablet 90 mg PO BID 12/12/21 02/07/22 02/06/22 History Physical Exam Vital Signs: Vital Signs: Last Vital Signs Temp 97.7 F 02/12/22 11:18 Pulse 66 02/12/22 11:18 Resp 17 02/12/22 11:18 BP 143/67 H 02/12/22 11:18 Pulse Ox 97 02/12/22 11:18 O2 Del Method 02/12/22 11:18 BMI result Body Mass Index 21.3 Const: General: cooperative HEENT: Head: Yes normal to inspection Face and sinus: Yes normal facial exam Mouth: Normal oral and palatal mucosa present Teeth and gingiva: dentition normal Eyes: General: appearance normal, both eyes and all related structures Pupils: Equal, round and reactive pupils present Resp: Effort & Inspection: normal respiratory effort Cardio: Rate: regular rate Rhythm: regular rhythm GI: Palpation (GI): Soft to palpation and nontender : Other: Barry catheter General: Yes no CVA tenderness Back/Spine/Pelvis: Back: no CVA tenderness Skin: General skin exam: no rashes or lesions noted Neuro: General: moves all extremities Cranial nerves: Yes Equal, round and reactive pupils present Extrem: General: Yes normal to inspection Psych: Other: confused Results Labs CBC & Chem 7: 02/12/22 10:31 02/12/22 10:31 Labs: Short CBC 02/12/22 Range/Units 10:31 WBC 3.6 L (4.8-10.8) X10*3/uL Hgb 8.6 L (14.0-18.0) g/dl Hct 26.5 L (42.0-52.0) % Plt Count 201 D (160-400) X10*3/uL BMP 02/12/22 10:31 Sodium 143 Potassium 3.5 Chloride 113 H Carbon Dioxide 22 BUN 27 H Creatinine 2.01 H Calcium 10.2 D Liver Function 02/12/22 Range/Units 10:31 Total Bilirubin 1.0 (0.0-1.0) mg/dL AST 9 (5-37) U/L ALT 6 (0-40) U/L Alkaline Phosphatase 50 (39-117) U/L Albumin 2.7 L (3.5-5.0) g/dL Microbiology Microbiology Results: Microbiology 02/07/22 15:43 Urine clean catch - Urine chung top Urine Culture - Final Pseudomonas aeruginosa Enterococcus faecalis 02/07/22 16:46 Blood - Venous Blood Culture - Preliminary No growth after 48 hours. 02/07/22 16:50 Blood - Venous Blood Culture - Preliminary No growth after 48 hours. Assessment and Plan (1) Sepsis secondary to UTI: Status: Acute He has Pseudomonas bacteremia and urine infection more than 100,000. Enterococcus faecalis is present in lower concentration 50,000 to 100,000 and colonized and not likely pathogenic at this current time. Urology is adjusting tube as needed. Plan He needs IV Cefepime for 14 day total. Urine culture Pseudomonas seems to have variant which is resistant to Levaquin. Dont treat enterococcus at this time Do not routinely reculture urine. Can reculture blood x2 cultures once. Urology followup treat any mechanical issues which can increase infection. Prophylactic antibiotics not helpful. Possible methenamine 1 g bid
--- NOTE | 2022-02-12 15:01 | MHC.CM.PN ---
EMR REVIEWED PER MD ROUNDS, PT NOT MEDICALLY CLEARED FOR DC DUE TO PSUEDOMONAS BACTEREMIA. AWAITING ID INPUT. CM WILL CONTINUE TO FOLLOW, [facility].
[2022-02-12 15:44] VITALS: BP 144/70; PULSE 63; RESP 19; TEMP 36.1; O2SAT 98
[2022-02-12 19:05] VITALS: BP 149/59; PULSE 69; RESP 19; TEMP 36.2; O2SAT 98
[2022-02-12] MEDS: Atorvastatin Calcium 40 MG TABLET PO (20:31)
[2022-02-12] MEDS: 0.9 % Sodium Chloride Flush 3 ML SYRINGE IVFLUSH (20:31)
[2022-02-13] VITALS (7 sets, daily range): BP systolic 147–161; BP diastolic 72–86; PULSE 72–84; RESP 16–19; TEMP 36.1–36.7; O2SAT 97–98
[2022-02-13] MEDS: cefEPime HCl 1 GM in 0.9 % Sodium Chloride 50 ML IV ×3 (02:52→17:21)
[2022-02-13] MEDS: Dextrose 5 % and Lactated Ring 1,000 ML 100 ML IVCONT (02:54)
[2022-02-13 05:42] LABS: MANUAL DIFF FLAG NO
[2022-02-13 05:45] LABS: Basophils Percent Auto 0.6 % (0-2); Eosinophils Absolute Auto 0.3 X10*3/uL (0.0-0.4); Eosinophils Percent Auto 6.3 % (0-4); Hematocrit 29.8 % (42.0-52.0); Hemoglobin 9.2 g/dl (14.0-18.0); Imm Gran Abs Auto 0.02 X10*3/uL (0.00-0.03); Imm Gran Pct Auto 0.4 % (0.0-0.4); Lymphocytes Absolute Auto 0.7 X10*3/uL (1.2-4.9); Lymphocytes Percent Auto 13.9 % (20-40); Mean Corpuscular HGB Conc 30.9 g/dl (31.0-36.0); Mean Corpuscular Hemoglobin 28.4 pg (27.0-33.0); Mean Platelet Volume 8.7 fL (9.4-12.4); Monocytes Absolute Auto 0.7 X10*3/uL (0.1-1.2); Monocytes Percent Auto 14.1 % (2-11); Neutrophils Absolute Auto 3.3 x10*3/uL (2.0-8.3); Neutrophils Percent Auto 64.7 % (45-73); Platelet Count 221 X10*3/uL (160-400); Red Blood Count 3.24 X10*6/uL (4.60-5.80); Red Cell Distribution Width 15.9 % (11.0-16.0)
[2022-02-13 06:04] LABS: Alanine Aminotransferase < 6 U/L (0-40); Albumin Level 2.6 g/dL (3.5-5.0); Alkaline Phosphatase 51 U/L (39-117); Anion Gap 10 (12-20); Aspartate Amino Transferase 8 U/L (5-37); Blood Urea Nitrogen 24 mg/dL (9-16); Calcium 10.4 mg/dL (8.4-10.2); Carbon Dioxide 22 mmol/L (22-29); Chloride 113 mmol/L (96-108); Creatinine Clr Calc Pharmacy 33.2; Estimated Glomerular Filt Rate 37; Glucose Fasting 108 mg/dL (60-99); Potassium 3.5 mmol/L (3.3-5.1); Sodium 141 mmol/L (135-145); Total Protein 6.5 g/dL (6.5-8.0)
[2022-02-13] MEDS: Tolterodine Tartrate LA 4 MG CAP.ER.24H PO (08:56)
[2022-02-13] MEDS: Aspirin Enteric Coated 81 MG TABLET.DR PO (08:56)
[2022-02-13] MEDS: Ticagrelor 90 MG TABLET PO ×2 (08:56→20:01)
[2022-02-13] MEDS: OLANZapine 2.5 MG TABLET PO (08:56)
[2022-02-13] MEDS: Finasteride 5 MG TABLET PO (08:56)
[2022-02-13] MEDS: Heparin Sodium,Porcine 5,000 UNIT/ML VIAL 5000 UNIT SUBCUT ×2 (09:05→20:01)
--- NOTE | 2022-02-13 16:45 | PM.UROPN ---
Subjective Subjective Date of Service: 02/13/22 Interval history: Seen for leakage around SPT Catheter changed to -18Fr 1200cc residual Grossly contaminated urine Culture resent On abx Physical Exam Vital Signs: Vital Signs: Last Vital Signs Temp 97.5 F 02/13/22 15:10 Pulse 81 02/13/22 15:10 Resp 18 02/13/22 15:10 BP 154/75 H 02/13/22 15:10 Pulse Ox 98 02/13/22 15:10 O2 Del Method 02/13/22 15:10 BMI result Body Mass Index 21.3 Const: General: cooperative, healthy appearing, comfortable and no acute distress Orientation/consciousness: patient oriented x3 HEENT: Face and sinus: Yes normal facial exam Mouth: moist mucous membranes Neck: Neck: Yes normal visual inspection, Yes full ROM and Yes trachea midline Chest: Chest palpation & inspection: normal inspection of the chest Resp: Effort & Inspection: normal respiratory effort, able to speak in complete sentences and no respiratory distress GI: Inspection: Yes normal to inspection Back/Spine/Pelvis: Cervical Spine: normal cervical lordosis Thoracic/Lumbar Spine: thoracic and lumbar spine normal to inspection Skin: General skin exam: no rashes or lesions noted Neuro: General: patient oriented x3, tone normal and moves all extremities Extrem: General: Yes normal to inspection and Yes capillary refill normal Urology Results Labs CBC & Chem 7: 02/13/22 05:29 02/13/22 05:29 Labs: Laboratory Results - last 24 hr 02/13/22 02/13/22 05:29 05:29 WBC 5.0 RBC 3.24 L Hgb 9.2 L Hct 29.8 L MCV 92.0 MCH 28.4 MCHC 30.9 L RDW 15.9 Plt Count 221 MPV 8.7 L Immature Gran % (Auto) 0.4 Neut % (Auto) 64.7 Lymph % (Auto) 13.9 L [place] % (Auto) 14.1 H Eos % (Auto) 6.3 H Baso % (Auto) 0.6 Lymph # (Auto) 0.7 L [place] # (Auto) 0.7 Eos # (Auto) 0.3 Baso # (Auto) 0.0 Abs Immat Gran (auto) 0.02 Absolute Neuts (auto) 3.3 Absolute Nucleated RBC 0.000 Nucleated RBC % (auto) 0.0 Sodium 141 Potassium 3.5 Chloride 113 H Carbon Dioxide 22 Anion Gap 10 L BUN 24 H Creatinine 1.76 H Estim Creat Clear Calc 33.2 Estimated GFR 37 Fasting Glucose 108 H Calcium 10.4 H Total Bilirubin 1.0 AST 8 ALT < 6 Alkaline Phosphatase 51 Total Protein 6.5 Albumin 2.6 L Progress Note: A&P Assessment and plan (1) Sepsis secondary to UTI: Status: Acute (2) Urinary retention with incomplete bladder emptying: Status: Acute Plan Abx for culture Time Spent With Patient Time: Total time spent is greater than 50% in coordination of care (as documented) at patient's floor/unit and/or counseling patient: Progress Note: Quality Stroke Does the patient have a stroke diagnosis?: No
--- NOTE | 2022-02-13 16:56 | HO.PM.IMPN ---
Subjective Subjective Date of Service: 02/13/22 Interval History: uti/sepsis Review of Systems answer few complaints -denies any chest pain or sob or abd pain Physical Exam Vital Signs: Vital Signs: Last Vital Signs Temp 97.9 F 02/13/22 16:45 Pulse 83 02/13/22 16:45 Resp 17 02/13/22 16:45 BP 157/79 H 02/13/22 16:45 Pulse Ox 98 02/13/22 16:45 O2 Del Method 02/13/22 16:45 BMI result Body Mass Index 21.3 Appearance: Awake alert,follow simple commands cvs: rrr, [id number]. res: air entry fair , no rales or wheezin abd: no rebound or guarding ,nt, bs present. :Suprapubic site clean dry intact however leaking urine around catheter ext pulses present , no cyanosis . neuro: axo3 , nonfocal. Objective Data Active Medications Acetaminophen (Acetaminophen 325 Mg Tablet) 650 mg PO Q6H PRN PRN Reason: Pain, Mild (Pain Scale 1-3) Aspirin (Aspirin Enteric Coated 81 Mg Tablet.) 81 mg PO DAILY [facility] Last Admin: 02/13/22 08:56 Dose: 81 mg Documented By: KWASI Atorvastatin Calcium (Atorvastatin Calcium 40 Mg Tablet) 40 mg PO BEDTIME [facility] Last Admin: 02/12/22 20:31 Dose: 40 mg Documented By: CORTNEY Finasteride (Finasteride 5 Mg Tablet) 5 mg PO DAILY [facility] Last Admin: 02/13/22 08:56 Dose: 5 mg Documented By: KWASI Heparin Sodium (Porcine) (Heparin Sodium,Porcine 5,000 Unit/Ml Vial) 5,000 unit SUBCUT Q12H [facility] Last Admin: 02/13/22 09:05 Dose: 5,000 unit Documented By: KWASI Cefepime HCl 1 gm/ Sodium (Chloride) 50 mls @ 100 mls/hr IV Q8H [facility] Last Infusion: 02/13/22 09:53 Dose: 0 mls/hr Documented By: KWASI Olanzapine (Olanzapine 2.5 Mg Tablet) 2.5 mg PO DAILY [facility] Last Admin: 02/13/22 08:56 Dose: 2.5 mg Documented By: KWASI Ondansetron HCl (Ondansetron Hcl 4 Mg/2 Ml Vial) 4 mg IVPUSH Q8H PRN PRN Reason: Nausea and Vomiting Pharmacy Consult (Consult Rx Perform Med Rec) 1 each MISCELLANE ONCE PRN PRN Reason: Consult order Sodium Chloride (0.9 % Sodium Chloride Flush 3 Ml Syringe) 3 ml IVFLUSH QSHIFT [facility] Last Admin: 02/13/22 09:01 Dose: Not Given Documented By: KWASI Non-Admin Reason: IV Running Ticagrelor (Ticagrelor 90 Mg Tablet) 90 mg PO BID [facility] Last Admin: 02/13/22 08:56 Dose: 90 mg Documented By: KWASI Tolterodine Tartrate (Tolterodine Tartrate La 4 Mg Cap.Er.24h) 4 mg PO DAILY [facility] Last Admin: 02/13/22 08:56 Dose: 4 mg Documented By: KWASI Labs CBC & Chem 7: 02/13/22 05:29 02/13/22 05:29 Labs: Laboratory Results - last 24 hr 02/13/22 02/13/22 05:29 05:29 MCV 92.0 MCH 28.4 MCHC 30.9 L RDW 15.9 Plt Count 221 MPV 8.7 L Immature Gran % (Auto) 0.4 Neut % (Auto) 64.7 Lymph % (Auto) 13.9 L Evans % (Auto) 14.1 H Eos % (Auto) 6.3 H Baso % (Auto) 0.6 Lymph # (Auto) 0.7 L Evans # (Auto) 0.7 Eos # (Auto) 0.3 Baso # (Auto) 0.0 Abs Immat Gran (auto) 0.02 Absolute Neuts (auto) 3.3 Absolute Nucleated RBC 0.000 Nucleated RBC % (auto) 0.0 Anion Gap 10 L Estim Creat Clear Calc 33.2 Estimated GFR 37 Fasting Glucose 108 H Calcium 10.4 H Total Bilirubin 1.0 AST 8 ALT < 6 Alkaline Phosphatase 51 Total Protein 6.5 Albumin 2.6 L Microbiology Microbiology Results: Microbiology 02/07/22 16:46 Blood Culture - Final Blood - Venous No growth after 5 days. 02/07/22 16:50 Blood Culture - Final Blood - Venous No growth after 5 days. 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 Review of chart demonstrates is similar to the last presentation of admission end november. 1. UTI -Pseudomonas/VRE in urine cultures; urine VRE; Pseudomonas in blood -cefepime 1 g Q 24 hours; add Ampicillin for VRE -seen by Urology for suprapubic catheter leaking... Antispasmodic ineffective. Will ask to recheck -ID consult 2. ALETHEA on CKD 3 --improved with volume repletion -follow renals/divalents 3. Hypertension -improved with volume repletion -hold antihypertensives add back when appropriate 4. Coronary artery disease -2D echo 11/06 demonstrates an LVEF between 30 and 35% -cautious fluids -continue dual antiplatelet agents -follow CBC 5. Dementia with mild psychotic features -Zyprexa with good effect Full code Heparin Patient will require ongoing hospitalization for IV antibiotics pending urine id Quality Stroke Does the patient have a stroke diagnosis?: No VTE Prior VTE?: No VTE Risk Level:: Medical - moderate - high VTE Device Contraindication: Treatment Not Indicated VTE Drug Contraindication: N/A - Med Ordered
[2022-02-13] MEDS: 0.9 % Sodium Chloride Flush 3 ML SYRINGE IVFLUSH (17:22)
[2022-02-13] MEDS: Atorvastatin Calcium 40 MG TABLET PO (20:01)
[2022-02-14] VITALS (7 sets, daily range): BP systolic 118–160; BP diastolic 73–87; PULSE 65–88; RESP 16–18; TEMP 35.9–36.8; O2SAT 96–99
[2022-02-14] MEDS: cefEPime HCl 1 GM in 0.9 % Sodium Chloride 50 ML IV ×3 (00:58→23:43)
[2022-02-14] MEDS: 0.9 % Sodium Chloride Flush 3 ML SYRINGE IVFLUSH ×3 (00:58→15:36)
--- NOTE | 2022-02-14 09:30 | P.CDIC_ITS ---
CDI Concurrent Query Documentation Clarification: PHYSICIAN'S DOCUMENTATION REQUEST Date of Query: 02/14/22 0931 Patient Name: Festus Valenzuela Admit Date: 02/07/22 Dear Doctor, A review of the medical record indicates additional documentation may be needed. Please review below and update the documentation accordingly. Clinical Indicators: Risk Factors/Clinical Indicators/Treatments per MD progress note 02/13/22: ?Dementia with mild psychotic features -Zyprexa with good effect Based on the above, could you clarify in the Progress Notes which, if any of the following, is the most likely etiology of the confusion/altered mental status? * Dementia - indicate type of dementia, such as Alzheimer's, senile, vascular, Lewy body, etc. * Other etiology (please specify) * Unable to determine Use of terms such as suspected, likely, concern for, or probable (associated with a specific diagnosis that is being evaluated, monitored, or treated as if it exists) are acceptable and can be coded in the inpatient setting, when documented at the time of discharge. Thank you, Cherelle Pruitt RN Extension: [phone] Please use your independent medical judgment in providing your response. THIS QUERY IS PART OF THE PERMANENT MEDICAL RECORD Provider Response: Other Other Diagnosis: Dementia with behavioral disturbances.
[2022-02-14] MEDS: Aspirin Enteric Coated 81 MG TABLET.DR PO (09:43)
[2022-02-14] MEDS: Finasteride 5 MG TABLET PO (09:43)
[2022-02-14] MEDS: Tolterodine Tartrate LA 4 MG CAP.ER.24H PO (09:43)
[2022-02-14] MEDS: Heparin Sodium,Porcine 5,000 UNIT/ML VIAL 5000 UNIT SUBCUT ×2 (09:43→20:20)
[2022-02-14] MEDS: Ticagrelor 90 MG TABLET PO ×2 (09:43→20:20)
[2022-02-14] MEDS: OLANZapine 2.5 MG TABLET PO ×2 (09:44→13:38)
[2022-02-14] MEDS: Acetaminophen 325 MG TABLET 650 MG PO (13:38)
--- NOTE | 2022-02-14 13:47 | PC.NURSE ---
Patient down to IR at this time.
--- NOTE | 2022-02-14 14:26 | P.PNIM_ITS ---
Subjective Subjective Date of Service: 02/14/22 Interval History: uti/sepsis Review of Systems Patient still intermittently agitated otherwise awake, somewhat agitated Physical Exam Vital Signs: Vital Signs: Last Vital Signs Temp 97.5 F 02/14/22 11:21 Pulse 88 02/14/22 11:21 Resp 18 02/14/22 11:21 BP 118/73 02/14/22 11:21 Pulse Ox 97 02/14/22 11:21 O2 Del Method 02/14/22 11:21 BMI result Body Mass Index 21.3 ?Appearance: Awake, agitated cvs: rrr, [id number]. res: air entry fair , no rales? or wheezin abd: no rebound or guarding ,nt, bs present. :Suprapubic site clean dry intact , Barry site is not leaking today ext pulses present , no cyanosis . neuro: motor grossly intact. Objective Data Active Medications Acetaminophen (Acetaminophen 325 Mg Tablet) 650 mg PO Q6H PRN PRN Reason: Pain, Mild (Pain Scale 1-3) Last Admin: 02/14/22 13:38 Dose: 650 mg Documented By: JAMIE Aspirin (Aspirin Enteric Coated 81 Mg Tablet.Dr) 81 mg PO DAILY [facility] Last Admin: 02/14/22 09:43 Dose: 81 mg Documented By: MARY Atorvastatin Calcium (Atorvastatin Calcium 40 Mg Tablet) 40 mg PO BEDTIME [facility] Last Admin: 02/13/22 20:01 Dose: 40 mg Documented By: CIRO Finasteride (Finasteride 5 Mg Tablet) 5 mg PO DAILY [facility] Last Admin: 02/14/22 09:43 Dose: 5 mg Documented By: MARY Heparin Sodium (Porcine) (Heparin Sodium,Porcine 5,000 Unit/Ml Vial) 5,000 unit SUBCUT Q12H [facility] Last Admin: 02/14/22 09:43 Dose: 5,000 unit Documented By: MARY Cefepime HCl 1 gm/ Sodium (Chloride) 50 mls @ 100 mls/hr IV Q8H [facility] Last Infusion: 02/14/22 06:22 Dose: 0 mls/hr Documented By: CIRO Olanzapine (Olanzapine 2.5 Mg Tablet) 2.5 mg PO DAILY [facility] Last Admin: 02/14/22 09:44 Dose: 2.5 mg Documented By: MARY Olanzapine (Olanzapine 2.5 Mg Tablet) 2.5 mg PO DAILY PRN PRN Reason: anxiety Last Admin: 02/14/22 13:38 Dose: 2.5 mg Documented By: JAMIE Ondansetron HCl (Ondansetron Hcl 4 Mg/2 Ml Vial) 4 mg IVPUSH Q8H PRN PRN Reason: Nausea and Vomiting Pharmacy Consult (Consult Rx Perform Med Rec) 1 each MISCELLANE ONCE PRN PRN Reason: Consult order Sodium Chloride (0.9 % Sodium Chloride Flush 3 Ml Syringe) 3 ml IVFLUSH QSHIFT [facility] Last Admin: 02/14/22 09:42 Dose: 3 ml Documented By: MARY Ticagrelor (Ticagrelor 90 Mg Tablet) 90 mg PO BID [facility] Last Admin: 02/14/22 09:43 Dose: 90 mg Documented By: MARY Tolterodine Tartrate (Tolterodine Tartrate La 4 Mg Cap.Er.24h) 4 mg PO DAILY [facility] Last Admin: 02/14/22 09:43 Dose: 4 mg Documented By: MARY Labs CBC & Chem 7: 02/13/22 05:29 02/13/22 05:29 Assessment and Plan (1) Urinary retention with incomplete bladder emptying: Status: Acute (2) UTI (urinary tract infection): Status: Acute (3) Sepsis secondary to UTI: Status: Acute (4) ALETHEA (acute kidney injury): Status: Acute (5) Dementia with behavioral disturbance: Status: Acute Plan 81-year-old male with 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 Review of chart demonstrates is similar to the last presentation of admission end of November. 1. UTI -Pseudomonas/VRE in urine cultures; urine VRE; Pseudomonas in blood -cefepime 1 g Q 24 hours; add Ampicillin for VRE -seen by Urology for suprapubic catheter leaking...? Antispasmodic ineffective.? Will ask to recheck -ID consult 2. ALETHEA on CKD 3 --improved with volume repletion -follow renals/divalents 3. Hypertension -improved with volume repletion -hold antihypertensives? add back when appropriate 4. Coronary artery disease -2D echo 11/06 demonstrates an LVEF between 30 and 35% -cautious fluids -continue dual antiplatelet agents -follow CBC 5. Dementia with mild Behavioral disturbances still intermittent agitated- Zyprexa scheduled and p.r.n.added psych evaluation Full code Heparin Patient will require ongoing hospitalization for IV antibiotics pending urine id, dementia with behavioral disturbances- need psych input. Quality Stroke Does the patient have a stroke diagnosis?: No VTE Prior VTE?: No VTE Risk Level:: Medical - moderate - high VTE Device Contraindication: Treatment Not Indicated VTE Drug Contraindication: N/A - Med Ordered
--- NOTE | 2022-02-14 15:13 | HO.MIDLINE_ITS ---
Midline Insertion MIDLINE INSERTION Diagnosis: UTI/Sepsis Indication:14 days of antibiotics Pertinent Labs: reviewed Technique: Using sterile technique including cap and mask, glove and drape, the right arm was prepped and draped in the usual sterile fashion of full barrier technique with CHG. Using ultrasound guidance, right basilic vein access was obtained in a second attempt by this RN. A 20 guage 10 cm Non-PASV midline was positioned. The procedure was performed in S272. Ultrasound was used to document vein patency and for needle entry. A formal ultrasound picture was recorded. [employer] has released the line for use and it is currently dressed with a StatLock, Tegaderm, and CHG disc. Verification has been performed for blood return and line patency. Arm Circumference: 25 cm Equipment: PowerGLide ST Midline Catheter Catheter Type: 20 guage 10 cm no PASV Lot #: [id number]
--- NOTE | 2022-02-14 16:57 | PM.PSYCN ---
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 Review of chart demonstrates is similar to the last presentation of admission end of November. 1. UTI -Pseudomonas/VRE in urine cultures; urine VRE; Pseudomonas in blood -cefepime 1 g Q 24 hours; add Ampicillin for VRE -seen by Urology for suprapubic catheter leaking...? Antispasmodic ineffective.? Will ask to recheck -ID consult 2. ALETHEA on CKD 3 --improved with volume repletion -follow renals/divalents 3. Hypertension -improved with volume repletion -hold antihypertensives? add back when appropriate 4. Coronary artery disease -2D echo 11/06 demonstrates an LVEF between 30 and 35% -cautious fluids -continue dual antiplatelet agents -follow CBC 5. Dementia with mild ? Behavioral disturbances still? intermittent agitated- Zyprexa ? scheduled and p.r.n.added ?psych evaluation Full code Heparin Patient will require ongoing hospitalization for IV antibiotics pending urine id, dementia with behavioral disturbances- need psych input. PSYCH: CTSP for agitated behaviors in dementia. per RN present, pt received olanzapine twice during her shift today, after which pt was calm for at least two hours. he is currently Rxed a max of 5 mg of zyprexa per day. pt seen after he returned from a procedure and so was perhaps not at his usual baseline. he was calm and pleasant, answering questions very succinctly and demonstrating a mild delay in responses. he denied any psychiatric symptoms. 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 Cardiomyopathy HTN (hypertension) Hypercholesterolemia Hyperlipidemia NSTEMI (non-ST elevated myocardial infarction) OA (osteoarthritis) Penile mass Pulmonary embolism Shortness of breath Urinary retention Surgical History History of surgery Family History: deferred Substance History: N/C Diagnostics Vital Signs (24Hr): Vital Signs - 24 hr 11/29/22 18:51 02/14/22 00:00 02/14/22 04:00 Temperature 97.0 F 97.8 F 96.9 F Pulse Rate 84 87 84 Respiratory Rate 19 18 18 Blood Pressure 161/86 H 154/82 H 160/82 H Pulse Oximetry 98 98 99 Oxygen Delivery Method Room Air Room Air Room Air 02/14/22 07:19 02/14/22 11:21 02/14/22 15:26 Temperature 96.7 F L 97.5 F 97.9 F Pulse Rate 65 88 74 Respiratory Rate 18 18 16 Blood Pressure 155/87 H 118/73 149/75 H Pulse Oximetry 98 97 96 Oxygen Delivery Method Room Air Room Air Room Air BMI result Body Mass Index 21.3 Labs Results: 02/13/22 05:29 02/13/22 05:29 Labs: Laboratory Results - last 48 hr 02/13/22 02/13/22 05:29 05:29 WBC 5.0 RBC 3.24 L Hgb 9.2 L Hct 29.8 L MCV 92.0 MCH 28.4 MCHC 30.9 L RDW 15.9 Plt Count 221 MPV 8.7 L Immature Gran % (Auto) 0.4 Neut % (Auto) 64.7 Lymph % (Auto) 13.9 L Wallace % (Auto) 14.1 H Eos % (Auto) 6.3 H Baso % (Auto) 0.6 Lymph # (Auto) 0.7 L Wallace # (Auto) 0.7 Eos # (Auto) 0.3 Baso # (Auto) 0.0 Abs Immat Gran (auto) 0.02 Absolute Neuts (auto) 3.3 Absolute Nucleated RBC 0.000 Nucleated RBC % (auto) 0.0 Sodium 141 Potassium 3.5 Chloride 113 H Carbon Dioxide 22 Anion Gap 10 L BUN 24 H Creatinine 1.76 H Estim Creat Clear Calc 33.2 Estimated GFR 37 Fasting Glucose 108 H Calcium 10.4 H Total Bilirubin 1.0 AST 8 ALT < 6 Alkaline Phosphatase 51 Total Protein 6.5 Albumin 2.6 L Imaging Radiology Impressions: ITS Impressions Chest X-Ray 02/07/22 15:00 IMPRESSION: No acute cardiopulmonary process. Mental Status Exam Mental Status Exam Narrative: elderly gentleman dressed in hospital attire, supine in hospital bed. awake and alert, able to answer questions very tersely with slight delay. reports he is OK, i guess, and denies SI/HI/AVH. no PMA/PMR. cooperative. thoughts linear and logical in very brief and concrete interaction. affect constricted. Medications Medications Current Medications Acetaminophen (Acetaminophen 325 Mg Tablet) 650 mg PO Q6H PRN PRN Reason: Pain, Mild (Pain Scale 1-3) Last Admin: 02/14/22 13:38 Dose: 650 mg Aspirin (Aspirin Enteric Coated 81 Mg Tablet.) 81 mg PO DAILY [facility] Last Admin: 02/14/22 09:43 Dose: 81 mg Atorvastatin Calcium (Atorvastatin Calcium 40 Mg Tablet) 40 mg PO BEDTIME [facility] Last Admin: 02/13/22 20:01 Dose: 40 mg Finasteride (Finasteride 5 Mg Tablet) 5 mg PO DAILY [facility] Last Admin: 02/14/22 09:43 Dose: 5 mg Heparin Sodium (Porcine) (Heparin Sodium,Porcine 5,000 Unit/Ml Vial) 5,000 unit SUBCUT Q12H [facility] Last Admin: 02/14/22 09:43 Dose: 5,000 unit Cefepime HCl 1 gm/ Sodium (Chloride) 50 mls @ 100 mls/hr IV Q8H [facility] Olanzapine (Olanzapine 2.5 Mg Tablet) 2.5 mg PO DAILY [facility] Last Admin: 02/14/22 09:44 Dose: 2.5 mg Olanzapine (Olanzapine 2.5 Mg Tablet) 2.5 mg PO Q2H PRN PRN Reason: agitation Ondansetron HCl (Ondansetron Hcl 4 Mg/2 Ml Vial) 4 mg IVPUSH Q8H PRN PRN Reason: Nausea and Vomiting Pharmacy Consult (Consult Rx Perform Med Rec) 1 each MISCELLANE ONCE PRN PRN Reason: Consult order Sodium Chloride (0.9 % Sodium Chloride Flush 3 Ml Syringe) 3 ml IVFLUSH QSHIFT [facility] Last Admin: 02/14/22 15:36 Dose: 3 ml Ticagrelor (Ticagrelor 90 Mg Tablet) 90 mg PO BID [facility] Last Admin: 02/14/22 09:43 Dose: 90 mg Tolterodine Tartrate (Tolterodine Tartrate La 4 Mg Cap.Er.24h) 4 mg PO DAILY [facility] Last Admin: 02/14/22 09:43 Dose: 4 mg Allergies Allergies Allergy/AdvReac Type Severity Reaction Status Date / Time No Known Allergies Allergy Verified 10/25/21 08:15 Assessment & Plan Assessment & Plan (1) Dementia with behavioral disturbance: Status: Acute Code(s): F03.918 - Unspecified dementia, unspecified severity, with other behavioral disturbance Plan pt with dementia with behavioral disturbance seen on the medical floor, where he has been intermittently agitated. he is currently prescribed zyprexa 2.5 mg daily and 2.5 mg daily PRN agitation. i recommend increasing the frequency of 2.5 mg PRN to Q2H with a max daily dose from all sources of 10 mg, to start. Hx of agitation somewhat unclear, but an increase in such behaviors may be seen in medical decompensation as well as delirium. vigilance should be maintained for delirium and adequate addressing of medical cause of delirium should it develop. I spent ___40___ minutes with the patient and/or on the patient floor today, greater than?50% of which was spent counseling/coordinating care.
[2022-02-14] MEDS: Atorvastatin Calcium 40 MG TABLET PO (20:20)
[2022-02-15] MEDS: 0.9 % Sodium Chloride Flush 3 ML SYRINGE IVFLUSH ×2 (00:17→07:50)
[2022-02-15 03:38] VITALS: BP 138/78; PULSE 68; RESP 18; TEMP 36.4; O2SAT 97
[2022-02-15] MEDS: cefEPime HCl 1 GM in 0.9 % Sodium Chloride 50 ML IV ×3 (07:37→23:27)
[2022-02-15 07:50] LABS: Blood Urea Nitrogen 24 mg/dL (9-16); Calcium 10.5 mg/dL (8.4-10.2); Creatinine Clr Calc Pharmacy 34.8; Estimated Glomerular Filt Rate 39; Glucose Random 86 mg/dL (60-115)
[2022-02-15] MEDS: Aspirin Enteric Coated 81 MG TABLET.DR PO (07:50)
[2022-02-15] MEDS: Ticagrelor 90 MG TABLET PO ×2 (07:50→20:54)
[2022-02-15] MEDS: OLANZapine 2.5 MG TABLET PO (07:51)
[2022-02-15] MEDS: Heparin Sodium,Porcine 5,000 UNIT/ML VIAL 5000 UNIT SUBCUT ×2 (07:51→20:54)
[2022-02-15] MEDS: Finasteride 5 MG TABLET PO (07:51)
[2022-02-15] MEDS: Tolterodine Tartrate LA 4 MG CAP.ER.24H PO (07:51)
[2022-02-15 08:00] VITALS: BP 151/83; PULSE 70; RESP 18; TEMP 36.1; O2SAT 100
[2022-02-15 08:02] LABS: Anion Gap 9 (12-20); Carbon Dioxide 25 mmol/L (22-29); Chloride 109 mmol/L (96-108); Potassium 3.4 mmol/L (3.3-5.1); Sodium 140 mmol/L (135-145)
[2022-02-15 10:31] LABS: Alanine Aminotransferase < 6 U/L (0-40); Albumin Level 2.7 g/dL (3.5-5.0); Alkaline Phosphatase 51 U/L (39-117); Aspartate Amino Transferase 9 U/L (5-37); Bilirubin Direct 0.4 mg/dL (0.0-0.5); Bilirubin Total 1.1 mg/dL (0.0-1.0); Thyroid Stimulating Hormone 1.65 uIU/mL (0.32-4.0); Total Protein 6.5 g/dL (6.5-8.0)
[2022-02-15 10:32] LABS: Vitamin B12 443 pg/mL (200-900)
--- NOTE | 2022-02-15 10:51 | P.CDIC_ITS ---
CDI Concurrent Query Documentation Clarification: PHYSICIAN'S DOCUMENTATION REQUEST Date of Query: 02/15/22 1052 Patient Name: Festus Valenzuela Admit Date: 02/07/22 Dear Doctor, A review of the medical record indicates additional documentation may be needed. Please review below and update the documentation accordingly. Risk Factors/Clinical Indicators/Treatments Blood culture 02/07/22: no growth WBC 5.5 LA .8 98.8, 97, 18, 92/45 IV Cefepime for UTI MD progress note 02/14/22: Sepsis Please clarify the following: l * Sepsis was present on admission and is now resolved * Sepsis was present on admission and is still being monitored, evaluated, or treated * Sepsis was ruled out * Sepsis is still a likely, suspected, probable diagnosis * Other (please specify) * Unable to determine Use of terms such as suspected, likely, concern for, or probable (associated with a specific diagnosis that is being evaluated, monitored, or treated as if it exists) are acceptable and can be coded in the inpatient setting, when documented at the time of discharge. Thank you, Cherelle Pruitt , JOYCE Extension: [phone] Please use your independent medical judgment in providing your response. THIS QUERY IS PART OF THE PERMANENT MEDICAL RECORD Provider Response: Other Other Diagnosis: no sepsis present
--- NOTE | 2022-02-15 11:06 | PM.PNNEP ---
Subjective Subjective Date of Service: 02/26/22 Interval history: Events noted Physical Exam Vital Signs: Vital Signs: Last Vital Signs Temp 96.9 F 02/15/22 08:00 Pulse 70 02/15/22 08:00 Resp 18 02/15/22 08:00 BP 151/83 H 02/15/22 08:00 Pulse Ox 100 02/15/22 08:00 O2 Del Method Nasal Cannula 02/15/22 08:00 BMI result Body Mass Index 21.3 Const: General: cooperative and comfortable Eyes: Conjunctivae: conjunctivae normal Neck: Neck: Yes no lymphadenopathy Resp: Effort & Inspection: no respiratory distress Auscultation: clear to auscultation bilaterally Cardio: Rate: regular rate GI: Other: Soft nontender nondistended normoactive bowel sounds. Suprapubic site clean dry intact however leaking urine around catheter Neuro: General: moves all extremities Objective Data Labs CBC & Chem 7: 02/22/22 07:49 02/26/22 07:56 Labs: Laboratory Results - last 24 hr 02/15/22 02/15/22 06:32 06:32 Sodium 140 Potassium 3.4 Chloride 109 H Carbon Dioxide 25 Anion Gap 9 L BUN 24 H Creatinine 1.68 H Estim Creat Clear Calc 34.8 Estimated GFR 39 Random Glucose 86 Calcium 10.5 H Total Bilirubin 1.1 H Direct Bilirubin 0.4 AST 9 ALT < 6 Alkaline Phosphatase 51 Total Protein 6.5 Albumin 2.7 L Vitamin B12 443 TSH 1.65 Microbiology Microbiology Results: Microbiology 02/07/22 16:46 Blood - Venous Blood Culture - Final No growth after 5 days. 02/07/22 16:50 Blood - Venous Blood Culture - Final No growth after 5 days. 02/07/22 15:43 Urine clean catch - Urine chung top Urine Culture - Final Pseudomonas aeruginosa Enterococcus faecalis Procedures Date of Service Date of Service: 02/15/22 Assessment & Plan Assessment and plan (1) ALETHEA (acute kidney injury): Status: Acute Plan 1. ALETHEA superimposed on CKD in a setting of Obstructive uropathy Currently has SPC Non oliguric Creatinine is trending down and clsoe to baseline 2. Anemia Multifactorial 3.Hypercalcemia PTH pending SPEP - No MCGP in august 2021 Start IV NS at 80 cc/hr pending PTH May need further workup based on PTH 4. Dementia Psychiatry note appreciated Time Spent With Patient Time: Total time spent is greater than 50% in coordination of care (as documented) at patient's floor/unit and/or counseling patient: Progress Note: Quality Stroke Does the patient have a stroke diagnosis?: No
--- NOTE | 2022-02-15 11:50 | CONS_ITS ---
DATE OF SERVICE: 02/14/2022 REASON FOR CONSULTATION: I was called to see this patient to assist in management of acute kidney injury. HISTORY OF PRESENT ILLNESS: To summarize, Festus is an 81-year-old man with a history of chronic kidney disease. He was admitted on 02/07/2022 with weakness and UTI. of chronic catheter and suprapubic catheter. SPC was due to non-malignant penile mass. At the time of admission, serum creatinine was 2.4, which was gradually improved to 1.7. He is being actively followed by Urology as well. ONGOING MEDICAL PROBLEMS: Include history of hypertension, BPH, cardiomyopathy, hyperlipidemia, coronary artery disease, penile mass, pulmonary embolism, urinary retention, CKD. FAMILY HISTORY: Noncontributory to this admission. SURGICAL HISTORY: As above. SOCIAL HISTORY: He lives with his . No history of any smoking or alcohol abuse. ALLERGIES: NO KNOWN DRUG ALLERGIES. MEDICATIONS: Were all reviewed. REVIEW OF SYSTEMS: He has no headache, nausea, or vomiting. No abdominal pain, diarrhea, or constipation. PHYSICAL EXAMINATION: GENERAL: Festus is an elderly man, who appears ill. NECK: Supple. HEENT: Mucosa is dry. LUNGS: Few scattered rhonchi. No rales. HEART: S1, S2 heard. No gallop. ABDOMEN: Soft, nontender. Has a suprapubic catheter, which is draining urine. NEURO: No asterixis. No myoclonus. EXTREMITIES: Trace edema. No rash. No clubbing. VITAL SIGNS: Blood pressure was 118/73, pulse 97. LABORATORY DATA: Sodium 141, potassium 3.5, BUN 24, creatinine 1.76, calcium 10.4, albumin 2.6. Hemoglobin 9.2, platelets 221. IMPRESSION: An 81-year-old man with acute kidney injury, superimposed on chronic kidney disease. Acute kidney injury is most likely due to obstructive uropathy. He has a component of hypovolemia. At present, renal function is improving. For now, I agree with keeping with the catheter and with cautious hydration. Keep intake more than the output. Avoid nephrotoxin agents. Avoid hypertension. No indication for dialysis. We will follow him along with the team. He has mild hypercalcemia. We will check the intact PTH. Ramírez Headley MD BPA/MODL / [id number]
[2022-02-15 12:00] VITALS: BP 119/69; PULSE 71; RESP 18; TEMP 36.6; O2SAT 97
--- NOTE | 2022-02-15 12:06 | P.PNIM_ITS ---
Subjective Subjective Date of Service: 02/15/22 Interval History: dementia with behavioral disturbances, UTI Review of Systems Patient is awake Unable to answer question, agitated intermittent. Physical Exam Vital Signs: Vital Signs: Last Vital Signs Temp 97.9 F 02/15/22 12:00 Pulse 71 02/15/22 12:00 Resp 18 02/15/22 12:00 BP 119/69 02/15/22 12:00 Pulse Ox 97 02/15/22 12:00 O2 Del Method 02/15/22 12:00 BMI result Body Mass Index 21.3 Appearance: Awake, somwhat somloscent cvs: rrr, [id number]. res: air entry fair , no rales? or wheezin abd: no rebound or guarding ,nt, bs present. :Suprapubic site clean dry intact , Barry site is not leaking today ext pulses present , no cyanosis . neuro: motor grossly intact. Objective Data Active Medications Acetaminophen (Acetaminophen 325 Mg Tablet) 650 mg PO Q6H PRN PRN Reason: Pain, Mild (Pain Scale 1-3) Last Admin: 02/14/22 13:38 Dose: 650 mg Documented By: JAMIE Aspirin (Aspirin Enteric Coated 81 Mg Tablet.) 81 mg PO DAILY [facility] Last Admin: 02/15/22 07:50 Dose: 81 mg Documented By: GOSIA Atorvastatin Calcium (Atorvastatin Calcium 40 Mg Tablet) 40 mg PO BEDTIME [facility] Last Admin: 02/14/22 20:20 Dose: 40 mg Documented By: MATTHEW Finasteride (Finasteride 5 Mg Tablet) 5 mg PO DAILY [facility] Last Admin: 02/15/22 07:51 Dose: 5 mg Documented By: GOSIA Heparin Sodium (Porcine) (Heparin Sodium,Porcine 5,000 Unit/Ml Vial) 5,000 unit SUBCUT Q12H [facility] Last Admin: 02/15/22 07:51 Dose: 5,000 unit Documented By: GOSIA Cefepime HCl 1 gm/ Sodium (Chloride) 50 mls @ 100 mls/hr IV Q8H [facility] Last Infusion: 02/15/22 09:33 Dose: 0 mls/hr Documented By: GOSIA Sodium Chloride (Ns) 1,000 mls @ 75 mls/hr IVCONT .[id number] [facility] Olanzapine (Olanzapine 2.5 Mg Tablet) 2.5 mg PO DAILY [facility] Last Admin: 02/15/22 07:51 Dose: 2.5 mg Documented By: GOSIA Olanzapine (Olanzapine 2.5 Mg Tablet) 2.5 mg PO Q2H PRN PRN Reason: agitation Ondansetron HCl (Ondansetron Hcl 4 Mg/2 Ml Vial) 4 mg IVPUSH Q8H PRN PRN Reason: Nausea and Vomiting Pharmacy Consult (Consult Rx Perform Med Rec) 1 each MISCELLANE ONCE PRN PRN Reason: Consult order Sodium Chloride (0.9 % Sodium Chloride Flush 3 Ml Syringe) 3 ml IVFLUSH QSHIFT [facility] Last Admin: 02/15/22 07:50 Dose: 3 ml Documented By: GOSIA Ticagrelor (Ticagrelor 90 Mg Tablet) 90 mg PO BID [facility] Last Admin: 02/15/22 07:50 Dose: 90 mg Documented By: GOSIA Tolterodine Tartrate (Tolterodine Tartrate La 4 Mg Cap.Er.24h) 4 mg PO DAILY [facility] Last Admin: 02/15/22 07:51 Dose: 4 mg Documented By: GOSIA Labs CBC & Chem 7: 02/13/22 05:29 02/15/22 06:32 Labs: Laboratory Results - last 24 hr 02/15/22 02/15/22 06:32 06:32 Anion Gap 9 L Estim Creat Clear Calc 34.8 Estimated GFR 39 Random Glucose 86 Calcium 10.5 H Total Bilirubin 1.1 H Direct Bilirubin 0.4 AST 9 ALT < 6 Alkaline Phosphatase 51 Total Protein 6.5 Albumin 2.7 L Vitamin B12 443 TSH 1.65 Assessment and Plan (1) Urinary retention with incomplete bladder emptying: Status: Acute (2) UTI (urinary tract infection): Status: Acute (3) ALETHEA (acute kidney injury): Status: Acute (4) Dementia with behavioral disturbance: Status: Acute Plan 81-year-old male with 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 Review of chart demonstrates is similar to the last presentation of admission end of November. 1. UTI -Pseudomonas/VRE in urine cultures; urine VRE; Pseudomonas in blood -cefepime 1 g Q 24 hours; add Ampicillin for VRE -seen by Urology for suprapubic catheter leaking...? Antispasmodic ineffective.? Will ask to recheck -ID consult 2. ALETHEA on CKD 3 --improved with volume repletion -follow renals/divalents 3. Hypertension -improved with volume repletion -hold antihypertensives? add back when appropriate 4. Coronary artery disease -2D echo 11/06 demonstrates an LVEF between 30 and 35% -cautious fluids -continue dual antiplatelet agents -follow CBC 5. Dementia with mild Behavioral disturbances vs metabolic encephalopathy(hypercalcemia , borderline potassium) still intermittent agitated intermittent seems somewhat somlonent hold scheduled and continue Zyprexa p.r.n.added psych [id number] above CT head-negative except brain volume loss which more likely goes to a dementia B12 and TSH normal Continue to monitor closely, gentle hydration, electrolyte replacement, p.r.n. Zyprexa if needed for agitation. Neuro evaluation. Full code Heparin Patient will require ongoing hospitalization for IV antibiotics pending urine id, dementia with behavioral disturbances- need psych input. Quality Stroke Does the patient have a stroke diagnosis?: No VTE Prior VTE?: No VTE Risk Level:: Medical - moderate - high VTE Device Contraindication: Treatment Not Indicated VTE Drug Contraindication: N/A - Med Ordered
--- NOTE | 2022-02-15 12:32 | P.CNNE_ITS ---
History of Present Illness Data of Consult Service Date: 02/15/22 Primary Care Provider: Obinna Moreau MD HPI Reason for consult: Encephalopathy 81 years old man admitted for unrelated reason with underlying history of dementia I was asked to see for change in mental status. He was unable to provide any history there was no witnessing of any seizure. 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 Mother No problems noted. Family history: reviewed and not pertinent Surgical History Surgical History History of surgery Social History Social History Household Members: Significant [facility] Do you presently have visiting nurse or other home services: Yes Alcohol intake: never Patient Tobacco Use Status: Never used Tobacco e-Cigarette/Vaping Use: Never Used Second Hand Smoke Exposure: No Advance Directives Date on File: 09/21/21 service: No Current occupational status: unemployed and retired Meds Allergies Allergy/AdvReac Type Severity Reaction Status Date / Time No Known Allergies Allergy Verified 10/25/21 08:15 Active Medications: Current Medications Acetaminophen (Acetaminophen 325 Mg Tablet) 650 mg PO Q6H PRN PRN Reason: Pain, Mild (Pain Scale 1-3) Last Admin: 02/14/22 13:38 Dose: 650 mg Aspirin (Aspirin Enteric Coated 81 Mg Tablet.) 81 mg PO DAILY [facility] Last Admin: 02/15/22 07:50 Dose: 81 mg Atorvastatin Calcium (Atorvastatin Calcium 40 Mg Tablet) 40 mg PO BEDTIME [facility] Last Admin: 02/14/22 20:20 Dose: 40 mg Finasteride (Finasteride 5 Mg Tablet) 5 mg PO DAILY [facility] Last Admin: 02/15/22 07:51 Dose: 5 mg Heparin Sodium (Porcine) (Heparin Sodium,Porcine 5,000 Unit/Ml Vial) 5,000 unit SUBCUT Q12H [facility] Last Admin: 02/15/22 07:51 Dose: 5,000 unit Cefepime HCl 1 gm/ Sodium (Chloride) 50 mls @ 100 mls/hr IV Q8H [facility] Last Infusion: 02/15/22 09:33 Dose: Infused Sodium Chloride (Ns) 1,000 mls @ 75 mls/hr IVCONT .[id number] [facility] Potassium Chloride (Potassium Chloride/H20) 10 meq in 100 mls @ 100 mls/hr IV Q1H [facility] Stop: 02/15/22 14:14 Olanzapine (Olanzapine 2.5 Mg Tablet) 2.5 mg PO DAILY [facility] Last Admin: 02/15/22 07:51 Dose: 2.5 mg Olanzapine (Olanzapine 2.5 Mg Tablet) 2.5 mg PO Q2H PRN PRN Reason: agitation Ondansetron HCl (Ondansetron Hcl 4 Mg/2 Ml Vial) 4 mg IVPUSH Q8H PRN PRN Reason: Nausea and Vomiting Pharmacy Consult (Consult Rx Perform Med Rec) 1 each MISCELLANE ONCE PRN PRN Reason: Consult order Sodium Chloride (0.9 % Sodium Chloride Flush 3 Ml Syringe) 3 ml IVFLUSH QSHIFT [facility] Last Admin: 02/15/22 07:50 Dose: 3 ml Ticagrelor (Ticagrelor 90 Mg Tablet) 90 mg PO BID [facility] Last Admin: 02/15/22 07:50 Dose: 90 mg Tolterodine Tartrate (Tolterodine Tartrate La 4 Mg Cap.Er.24h) 4 mg PO DAILY [facility] Last Admin: 02/15/22 07:51 Dose: 4 mg Home Medications Medication Instructions Recorded Confirmed Last Taken Type aspirin 81 mg tablet,delayed 81 mg PO DAILY 12/12/21 02/07/22 02/07/22 History release lisinopril 5 mg tablet 5 mg PO DAILY 12/12/21 02/07/22 02/07/22 History rosuvastatin 10 mg tablet 1 tab PO BEDTIME 12/12/21 02/07/22 02/06/22 History ticagrelor 90 mg tablet 90 mg PO BID 12/12/21 02/07/22 02/06/22 History Physical Exam Vital Signs: Vital Signs: Last Vital Signs Temp 97.9 F 02/15/22 12:00 Pulse 71 02/15/22 12:00 Resp 18 02/15/22 12:00 BP 119/69 02/15/22 12:00 Pulse Ox 97 02/15/22 12:00 O2 Del Method 02/15/22 12:00 BMI result Body Mass Index 21.3 Neuro: Other: very drowsy with eyes closed and even with forceful effort he would not let me open his eyes. He was resisting to examination. He did not say a word and did not follow any commands. There was moderate frontal type of rigidity in hands and arms or legs. Plantars were equivocal. Face seems symmetrical. Results Labs CBC & Chem 7: 02/13/22 05:29 02/15/22 06:32 Labs: BMP 02/15/22 06:32 Sodium 140 Potassium 3.4 Chloride 109 H Carbon Dioxide 25 BUN 24 H Creatinine 1.68 H Calcium 10.5 H Liver Function 02/15/22 Range/Units 06:32 Total Bilirubin 1.1 H (0.0-1.0) mg/dL Direct Bilirubin 0.4 (0.0-0.5) mg/dL AST 9 (5-37) U/L ALT < 6 (0-40) U/L Alkaline Phosphatase 51 (39-117) U/L Albumin 2.7 L (3.5-5.0) g/dL Head CT revealed moderately severe diffuse cerebral atrophy per Microbiology Microbiology Results: Microbiology 02/07/22 16:46 Blood - Venous Blood Culture - Final No growth after 5 days. 02/07/22 16:50 Blood - Venous Blood Culture - Final No growth after 5 days. 02/07/22 15:43 Urine clean catch - Urine chung top Urine Culture - Final Pseudomonas aeruginosa Enterococcus faecalis Assessment and Plan (1) Dementia with behavioral disturbance: Status: Acute 81 years old man with encephalopathy with underlying dementia of degenerative type probably a variant of at Alzheimer. Because of a significant encephalopathy and no obvious explanation other than dementia, I would recommend obtaining an EEG to rule out any possibility of nonconvulsive status. If possible, and noncontrast MRI of brain can also help more than head CT to rule o ut any possibility of stroke explaining his mental situation Procedures Date of Service Date of Service: 02/15/22
[2022-02-15] MEDS: 0.9 % Sodium Chloride 1,000 ML 75 ML IVCONT (12:39)
[2022-02-15] MEDS: Potassium Chloride/H20 10 MEQ/100 ML PIGGYBACK 100 MEQ IV ×2 (12:40→13:49)
[2022-02-15 13:57] LABS: Ammonia 22 umol/L (13-55)
[2022-02-15 15:15] VITALS: BP 142/76; PULSE 70; RESP 16; TEMP 36.3; O2SAT 99
[2022-02-15 19:57] VITALS: BP 154/76; PULSE 74; RESP 20; TEMP 36.4; O2SAT 97
[2022-02-15] MEDS: Atorvastatin Calcium 40 MG TABLET PO (20:54)
--- NOTE | 2022-02-16 | EEG_ITS ---
This is a 16-channel EEG with an EKG lead. The patient is reported unresponsive during the tracing. Background EEG rhythm is almost continuously interrupted by mostly generalized, but some time left hemispheric sharp and slow wave complexes or sharp waves with background of low to medium amplitude, mixed theta, beta. Cardiac lead did not reveal any significant abnormality. Photic stimulation and hyperventilation were not performed. 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 MD LALA Rai/HEDY / [id number]
[2022-02-16 03:46] VITALS: BP 159/76; PULSE 66; RESP 18; TEMP 36.8; O2SAT 97
[2022-02-16] MEDS: 0.9 % Sodium Chloride 1,000 ML 75 ML IVCONT ×2 (03:48→19:27)
[2022-02-16] MEDS: cefEPime HCl 1 GM in 0.9 % Sodium Chloride 50 ML IV ×2 (07:38→16:43)
[2022-02-16] MEDS: Heparin Sodium,Porcine 5,000 UNIT/ML VIAL 5000 UNIT SUBCUT ×2 (07:47→22:40)
[2022-02-16 07:59] VITALS: BP 168/80; PULSE 79; RESP 18; TEMP 36.9; O2SAT 99
[2022-02-16 09:28] LABS: Anion Gap 16 (12-20); Blood Urea Nitrogen 26 mg/dL (9-16); Calcium 9.7 mg/dL (8.4-10.2); Carbon Dioxide 18 mmol/L (22-29); Chloride 113 mmol/L (96-108); Estimated Glomerular Filt Rate 38; Glucose Random 71 mg/dL (60-115); Potassium 4.7 mmol/L (3.3-5.1); Sodium 142 mmol/L (135-145)
[2022-02-16 11:56] VITALS: BP 168/80; PULSE 79; O2SAT 99
[2022-02-16 13:01] VITALS: BMI 21.3
[2022-02-16] MEDS: levETIRAcetam in NaCl (iso-os) 1,000 MG/100 ML PIGGYBACK 400 MG IV (13:01)
--- NOTE | 2022-02-16 13:13 | MHC.CLN ---
NUTRITION CONSULT FOR POOR PO. POOR INTAKE X 7 DAYS. PER MD, START PPN TODAY. PATIENT WITH MIDLINE. RECOMMEND PPN D10AA4.25 DAY 1, 02/16: D10AA4.25 AT 30 ML PER HOUR. PROVIDES 367 KCALS, 31 G PROTEIN. REPLETE LYTES NEEDED. DAY 2, 02/17: D10AA4.25 AT 50 ML PER HOUR. PROVIDES 612 KCALS, 51 G PROTEIN. REPLETE LYTES NEEDED. CHECK TRIGLYCERIDES. DAY 3, 02/18: MAX GOAL RATE D10AA4.25 AT 70 ML PER HOUR. ADD LIPIDS 20 ML PER HOUR OF 20% LIPIDS. PROVIDES 1817 KCALS (25.4 KCALS/KG), 71 G PROTEIN (.99 G/KG). REPLETE LYTES NEEDED. FOLLOW FOR PO INTAKE, LABS, PPN TOLERANCE. MAY NEED TO ADJUST PPN WITH IMPROVED PO INTAKE.
[2022-02-16 14:23] LABS: Albumin Level 2.7 g/dL (3.5-5.0); Magnesium 2.2 mg/dL (1.6-2.6); Phosphorus 2.6 mg/dL (2.7-4.5)
[2022-02-16 14:40] VITALS: BP 156/77; PULSE 80; RESP 18; TEMP 36.5; O2SAT 97
[2022-02-16 15:01] LABS: Glucose, Whole Blood 67 mg/dL (60-115)
--- NOTE | 2022-02-16 15:27 | PM.CCHP ---
History of Present Illness Date of Service: 02/16/22 Chief Complaint: Status epilepticus Patient seen at approximately 14:30. 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 Hospital course complicated by worsening encephalopathy, evaluated by neurology and EEG showing seizure activity earlier this a.m.. Level of care evaluation requested for ongoing status epilepticus. On evaluation patient is lethargic, arousable following some simple commands, purposefully reacting to noxious stimuli. Not started on antiepileptics yet. Review of Systems Review of Systems: Yes Unobtainable due to mental status PMFSH Past Medical History Medical History Accelerated essential hypertension Acute subendocardial UT of anterior wall BPH w urinary obs/LUTS Cardiomyopathy HTN (hypertension) Hypercholesterolemia Hyperlipidemia NSTEMI (non-ST elevated myocardial infarction) OA (osteoarthritis) Penile mass Pulmonary embolism Shortness of breath Urinary retention Family History Family History Father No problems noted. Mother No problems noted. Family history: reviewed and not pertinent Surgical History Surgical History History of surgery Social History Social History Household Members: Significant [facility] Do you presently have visiting nurse or other home services: Yes Alcohol intake: never Patient Tobacco Use Status: Never used Tobacco e-Cigarette/Vaping Use: Never Used Second Hand Smoke Exposure: No Advance Directives Date on File: 09/21/21 service: No Current occupational status: unemployed and retired Meds Allergies Allergy/AdvReac Type Severity Reaction Status Date / Time No Known Allergies Allergy Verified 10/25/21 08:15 Active Medications: Current Medications Acetaminophen (Acetaminophen 325 Mg Tablet) 650 mg PO Q6H PRN PRN Reason: Pain, Mild (Pain Scale 1-3) Last Admin: 02/14/22 13:38 Dose: 650 mg Aspirin (Aspirin Enteric Coated 81 Mg Tablet.Dr) 81 mg PO DAILY [facility] Last Admin: 02/16/22 07:55 Dose: Not Given Atorvastatin Calcium (Atorvastatin Calcium 40 Mg Tablet) 40 mg PO BEDTIME [facility] Last Admin: 02/15/22 20:54 Dose: 40 mg Finasteride (Finasteride 5 Mg Tablet) 5 mg PO DAILY [facility] Last Admin: 02/16/22 07:55 Dose: Not Given Heparin Sodium (Porcine) (Heparin Sodium,Porcine 5,000 Unit/Ml Vial) 5,000 unit SUBCUT Q12H [facility] Last Admin: 02/16/22 07:47 Dose: 5,000 unit Cefepime HCl 1 gm/ Sodium (Chloride) 50 mls @ 100 mls/hr IV Q8H [facility] Last Infusion: 02/16/22 09:14 Dose: Infused Sodium Chloride (Ns) 1,000 mls @ 75 mls/hr IVCONT .[id number] [facility] Last Infusion: 02/16/22 11:49 Dose: 0 mls/hr Multivitamins 28 ml/ Trace Metals 2.8 ml/ Amino Acids/Electrolytes/Dextrose 720 mls @ 30 mls/hr IV DAILY@1800 [facility] Stop: 02/17/22 17:59 Olanzapine (Olanzapine 2.5 Mg Tablet) 2.5 mg PO DAILY [facility] Last Admin: 02/15/22 07:51 Dose: 2.5 mg Olanzapine (Olanzapine 2.5 Mg Tablet) 2.5 mg PO Q2H PRN PRN Reason: agitation Olanzapine (Olanzapine 10 Mg Vial) 2.5 mg IM DAILY PRN PRN Reason: Anxiety Ondansetron HCl (Ondansetron Hcl 4 Mg/2 Ml Vial) 4 mg IVPUSH Q8H PRN PRN Reason: Nausea and Vomiting Pharmacy Consult (Consult Rx Perform Med Rec) 1 each MISCELLANE ONCE PRN PRN Reason: Consult order Sodium Chloride (0.9 % Sodium Chloride Flush 3 Ml Syringe) 3 ml IVFLUSH QSHIFT [facility] Last Admin: 02/16/22 07:07 Dose: Not Given Ticagrelor (Ticagrelor 90 Mg Tablet) 90 mg PO BID [facility] Last Admin: 02/16/22 07:55 Dose: Not Given Tolterodine Tartrate (Tolterodine Tartrate La 4 Mg Cap.Er.24h) 4 mg PO DAILY [facility] Last Admin: 02/16/22 07:55 Dose: Not Given Home Medications Medication Instructions Recorded Confirmed Last Taken Type aspirin 81 mg tablet,delayed 81 mg PO DAILY 12/12/21 02/07/22 02/07/22 History release lisinopril 5 mg tablet 5 mg PO DAILY 12/12/21 02/07/22 02/07/22 History rosuvastatin 10 mg tablet 1 tab PO BEDTIME 12/12/21 02/07/22 02/06/22 History ticagrelor 90 mg tablet 90 mg PO BID 12/12/21 02/07/22 02/06/22 History Physical Exam Vital Signs: Vital Signs: Last Vital Signs Temp 97.7 F 02/16/22 14:40 Pulse 80 02/16/22 14:40 Resp 18 02/16/22 14:40 BP 156/77 H 02/16/22 14:40 Pulse Ox 97 02/16/22 14:40 O2 Del Method 02/16/22 14:40 BMI result Body Mass Index 21.3 Const: General: no acute distress and lethargic (Arousable, follows simple command) Orientation/consciousness: lethargic (Arousable, follows simple command) Eyes: Sclerae: sclerae normal Neck: Neck: Yes no lymphadenopathy, Yes trachea midline and Yes supple Resp: Effort & Inspection: normal respiratory effort and no respiratory distress Auscultation: clear to auscultation bilaterally Cardio: Rate: regular rate Rhythm: regular rhythm Heart sounds: no gallops, no murmurs and no rubs GI: Palpation (GI): Soft to palpation and Other GI palpation findings present ( Nontender) Auscultation: normal bowel sounds Extrem: General: Yes no pedal edema, No clubbing and No cyanosis Results Labs CBC and Chem 7: 02/13/22 05:29 02/16/22 08:02 Labs: Laboratory Results - last 24 hr 02/16/22 02/16/22 08:02 14:43 Anion Gap 16 Estim Creat Clear Calc 34.0 Estimated GFR 38 POC Glucose 67 Random Glucose 71 D Calcium 9.7 D Phosphorus 2.6 L Magnesium 2.2 Albumin 2.7 L Imaging Radiologist's Impressions: Impressions Head CT 02/15/22 10:25 IMPRESSION: 1. There are no acute bleeds or territorial infarcts. No masses are demonstrated. 2. There are chronic microvascular ischemic changes and lacunar infarcts. There is diffuse volume loss. KUB X-Ray 02/15/22 21:02 IMPRESSION: 1. No contraindicated radiopaque bodies for MRI. 2. Nonobstructive bowel gas pattern. Assessment and Plan (1) Encephalopathy: Status: Acute (2) Seizures: Status: Acute Plan Impression: 81-year-old gentleman with underlying recurrent resistant UTIs, CAD, dementia, also with seizures earlier this a.m. on EEG, no longer having seizures at the time of evaluation, but not started on antiepileptics yet. Recommendations: Agree with Keppra load and maintenance. Consider transfer to telemetry for close monitoring. No signs of seizure activity at this time. At this time does not require intensive care unit level of monitoring. Please notify for re-evaluation, if patient's condition changes.
--- NOTE | 2022-02-16 15:59 | PM.PNNEP ---
Subjective Subjective Date of Service: 02/16/22 Interval history: dementia with behavioral disturbances, UTI Physical Exam Vital Signs: Vital Signs: Last Vital Signs Temp 97.7 F 02/16/22 14:40 Pulse 80 02/16/22 14:40 Resp 18 02/16/22 14:40 BP 156/77 H 02/16/22 14:40 Pulse Ox 97 02/16/22 14:40 O2 Del Method 02/16/22 14:40 BMI result Body Mass Index 21.3 ? Appearance: still same somlescent cvs: rrr, [id number]. res: air entry fair , no rales? or wheezin abd: no rebound or guarding ,nt, bs present. :Suprapubic site clean dry intact , Barry site is not leaking today ext pulses present , no cyanosis . neuro: motor grossly intact. Objective Data Labs CBC & Chem 7: 02/17/22 06:10 02/17/22 06:10 Labs: Laboratory Results - last 24 hr 02/16/22 02/16/22 08:02 14:43 Sodium 142 Potassium 4.7 D Chloride 113 H Carbon Dioxide 18 L Anion Gap 16 BUN 26 H Creatinine 1.72 H Estim Creat Clear Calc 34.0 Estimated GFR 38 POC Glucose 67 Random Glucose 71 D Calcium 9.7 D Phosphorus 2.6 L Magnesium 2.2 Albumin 2.7 L Microbiology Microbiology Results: Microbiology 02/07/22 16:46 Blood - Venous Blood Culture - Final No growth after 5 days. 02/07/22 16:50 Blood - Venous Blood Culture - Final No growth after 5 days. 02/07/22 15:43 Urine clean catch - Urine chung top Urine Culture - Final Pseudomonas aeruginosa Enterococcus faecalis Procedures Date of Service Date of Service: 02/16/22 Assessment & Plan Assessment and plan (1) ALETHEA (acute kidney injury): Status: Acute (2) Urinary retention with incomplete bladder emptying: Status: Acute Plan 1. ALETHEA superimposed on CKD in a setting of Obstructive uropathy Currently has SPC Non oliguric Creatinine is trending down and clsoe to baseline 2. Anemia Multifactorial 3.Hypercalcemia PTH pending SPEP - No MCGP in august 2021 Start IV NS at 80 cc/hr pending PTH May need further workup based on PTH 4. Dementia Psychiatry note appreciated Time Spent With Patient Time: Total time spent is greater than 50% in coordination of care (as documented) at patient's floor/unit and/or counseling patient: Progress Note: Quality Stroke Does the patient have a stroke diagnosis?: No
--- NOTE | 2022-02-16 16:42 | HO.PM.IMPN ---
Subjective Subjective Date of Service: 02/16/22 Interval History: very somlescent intermittent opens eyes Review of Systems unable to obtain Physical Exam Vital Signs: Vital Signs: Last Vital Signs Temp 97.7 F 02/16/22 14:40 Pulse 80 02/16/22 14:40 Resp 18 02/16/22 14:40 BP 156/77 H 02/16/22 14:40 Pulse Ox 97 02/16/22 14:40 O2 Del Method 02/16/22 14:40 BMI result Body Mass Index 21.3 Appearance: still somloscent cvs: rrr, [id number]. res: air entry fair , no rales? or wheezin abd: no rebound or guarding ,nt, bs present. :Suprapubic site clean dry intact , Barry site is not leaking today ext pulses present , no cyanosis . neuro: motor grossly intact. Objective Data Active Medications Acetaminophen (Acetaminophen 325 Mg Tablet) 650 mg PO Q6H PRN PRN Reason: Pain, Mild (Pain Scale 1-3) Last Admin: 02/14/22 13:38 Dose: 650 mg Documented By: JAMIE Aspirin (Aspirin Enteric Coated 81 Mg Tablet.) 81 mg PO DAILY [facility] Last Admin: 02/16/22 07:55 Dose: Not Given Documented By: GOSIA Non-Admin Reason: Patient Refused Atorvastatin Calcium (Atorvastatin Calcium 40 Mg Tablet) 40 mg PO BEDTIME [facility] Last Admin: 02/15/22 20:54 Dose: 40 mg Documented By: MATTHEW Finasteride (Finasteride 5 Mg Tablet) 5 mg PO DAILY [facility] Last Admin: 02/16/22 07:55 Dose: Not Given Documented By: GOSIA Non-Admin Reason: Patient Refused Heparin Sodium (Porcine) (Heparin Sodium,Porcine 5,000 Unit/Ml Vial) 5,000 unit SUBCUT Q12H [facility] Last Admin: 02/16/22 07:47 Dose: 5,000 unit Documented By: GOSIA Cefepime HCl 1 gm/ Sodium (Chloride) 50 mls @ 100 mls/hr IV Q8H [facility] Last Infusion: 02/16/22 09:14 Dose: 0 mls/hr Documented By: GOSIA Sodium Chloride (Ns) 1,000 mls @ 75 mls/hr IVCONT .[id number] [facility] Last Infusion: 02/16/22 11:49 Dose: 0 mls/hr Documented By: GOSIA Multivitamins 28 ml/ Trace Metals 2.8 ml/ Amino Acids/Electrolytes/Dextrose 720 mls @ 30 mls/hr IV DAILY@1800 [facility] Stop: 02/17/22 17:59 Olanzapine (Olanzapine 2.5 Mg Tablet) 2.5 mg PO DAILY [facility] Last Admin: 02/15/22 07:51 Dose: 2.5 mg Documented By: GOSIA Olanzapine (Olanzapine 2.5 Mg Tablet) 2.5 mg PO Q2H PRN PRN Reason: agitation Olanzapine (Olanzapine 10 Mg Vial) 2.5 mg IM DAILY PRN PRN Reason: Anxiety Ondansetron HCl (Ondansetron Hcl 4 Mg/2 Ml Vial) 4 mg IVPUSH Q8H PRN PRN Reason: Nausea and Vomiting Pharmacy Consult (Consult Rx Perform Med Rec) 1 each MISCELLANE ONCE PRN PRN Reason: Consult order Sodium Chloride (0.9 % Sodium Chloride Flush 3 Ml Syringe) 3 ml IVFLUSH QSHIFT [facility] Last Admin: 02/16/22 07:07 Dose: Not Given Documented By: GOSIA Non-Admin Reason: IV Running Ticagrelor (Ticagrelor 90 Mg Tablet) 90 mg PO BID [facility] Last Admin: 02/16/22 07:55 Dose: Not Given Documented By: GOSIA Non-Admin Reason: Patient Refused Tolterodine Tartrate (Tolterodine Tartrate La 4 Mg Cap.Er.24h) 4 mg PO DAILY [facility] Last Admin: 02/16/22 07:55 Dose: Not Given Documented By: GOSIA Non-Admin Reason: Patient Refused Labs CBC & Chem 7: 02/13/22 05:29 02/16/22 08:02 Labs: Laboratory Results - last 24 hr 02/16/22 02/16/22 08:02 14:43 Anion Gap 16 Estim Creat Clear Calc 34.0 Estimated GFR 38 POC Glucose 67 Random Glucose 71 D Calcium 9.7 D Phosphorus 2.6 L Magnesium 2.2 Albumin 2.7 L Assessment and Plan (1) Urinary retention with incomplete bladder emptying: Status: Acute (2) UTI (urinary tract infection): Status: Acute (3) ALETHEA (acute kidney injury): Status: Acute (4) Dementia with behavioral disturbance: Status: Acute Plan 81-year-old male with 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 Review of chart demonstrates is similar to the last presentation of admission end of November. UTI -Pseudomonas/VRE in urine cultures; urine VRE; Pseudomonas in blood -cefepime 1 g Q 24 hours; add Ampicillin for VRE -seen by Urology for suprapubic catheter leaking...? Antispasmodic ineffective.? Will ask to recheck -ID consult . ALETHEA on CKD 3 --improved with volume repletion -follow renals/divalents Hypertension -improved with volume repletion -hold antihypertensives? add back when appropriate Coronary artery disease -2D echo 11/06 demonstrates an LVEF between 30 and 35% -cautious fluids -continue dual antiplatelet agents -follow CBC Status epilepticus?/ metabolic encephalopathy Hypercalcemia seems to be improved CT head-negative except brain volume loss which more likely goes to a dementia B12 and TSH normal eeg-possible status epilepticus MRI added Neuro recomended to added iv keppra loading ,also added maintenance. Seen by ICU-recommended continue Keppra loading and maintenance and monitor closely. Patient was transfer to [facility]. If if patient condition deteriorate further or any hemodynamically instability-will call ICU back. Dementia with Behavioral disturbances : hold zyprexa currentlyin status . Full code Heparin Patient will require ongoing hospitalization for : Status epilepticus-need neuro status monitoring, telemetry monitoring, IV Keppra loading. Quality Stroke Does the patient have a stroke diagnosis?: No VTE Prior VTE?: No VTE Risk Level:: Medical - moderate - high VTE Device Contraindication: Treatment Not Indicated VTE Drug Contraindication: N/A - Med Ordered
[2022-02-16] MEDS: levETIRAcetam in NaCl (iso-os) 500 MG/100 ML PIGGYBACK 400 MG IV (18:38)
[2022-02-16 18:39] VITALS: BP 157/77; PULSE 88; RESP 20; TEMP 36.4; O2SAT 94
[2022-02-17] VITALS (12 sets, daily range): BP systolic 108–162; BP diastolic 60–77; PULSE 54–110; RESP 15–20; TEMP 36.1–36.4; O2SAT 93–98
[2022-02-17] MEDS: cefEPime HCl 1 GM in 0.9 % Sodium Chloride 50 ML IV ×3 (00:29→15:45)
[2022-02-17] MEDS: levETIRAcetam in NaCl (iso-os) 500 MG/100 ML PIGGYBACK 400 MG IV (05:21)
[2022-02-17 07:01] LABS: Hematocrit 27.3 % (42.0-52.0); Hemoglobin 8.8 g/dl (14.0-18.0); Mean Corpuscular HGB Conc 32.2 g/dl (31.0-36.0); Mean Corpuscular Volume 90.1 fL (80.0-98.0); Mean Platelet Volume 9.1 fL (9.4-12.4); Platelet Count 216 X10*3/uL (160-400); Red Blood Count 3.03 X10*6/uL (4.60-5.80); Red Cell Distribution Width 15.5 % (11.0-16.0)
[2022-02-17 07:17] LABS: Albumin Level 2.5 g/dL (3.5-5.0); Phosphorus 2.5 mg/dL (2.7-4.5); Triglycerides 112 mg/dL
[2022-02-17] MEDS: Dextrose 5 % and 0.9 % NaCl 1,000 ML 80 ML IVCONT (07:57)
[2022-02-17] MEDS: Heparin Sodium,Porcine 5,000 UNIT/ML VIAL 5000 UNIT SUBCUT ×2 (07:58→21:39)
[2022-02-17] MEDS: 0.9 % Sodium Chloride Flush 3 ML SYRINGE IVFLUSH ×2 (07:58→14:13)
[2022-02-17 08:04] LABS: Anion Gap 10 (12-20); Blood Urea Nitrogen 25 mg/dL (9-16); Calcium 9.5 mg/dL (8.4-10.2); Carbon Dioxide 22 mmol/L (22-29); Chloride 109 mmol/L (96-108); Creatinine Clr Calc Pharmacy 37.2; Estimated Glomerular Filt Rate 43; Glucose Random 91 mg/dL (60-115); Potassium 3.4 mmol/L (3.3-5.1); Sodium 138 mmol/L (135-145)
[2022-02-17 10:47] LABS: INTERNATIONAL NORM RATIO 1.1 (0.9-1.1); Prothrombin Time 12.9 SEC (10.0-13.1)
--- NOTE | 2022-02-17 11:16 | PM.NEUROCN ---
History of Present Illness Data of Consult Service Date: 02/17/22 Primary Care Provider: Obinna Moreau MD [facility] Reason for consult: Status epilepticus 81 years old man who was found to be in partial status epilepticus on EEG with clinical presentation of unresponsiveness though not shaking. Levetiracetam was started and today he was still not responsive or talking. 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 Mother No problems noted. Family history: reviewed and not pertinent Surgical History Surgical History History of surgery Social History Social History Household Members: Significant Other Housing: Condominium Do you presently have visiting nurse or other home services: Yes Alcohol intake: never Patient Tobacco Use Status: Never used Tobacco e-Cigarette/Vaping Use: Never Used Second Hand Smoke Exposure: No Advance Directives Date on File: 09/21/21 service: No Current occupational status: unemployed and retired Meds Allergies Allergy/AdvReac Type Severity Reaction Status Date / Time No Known Allergies Allergy Verified 10/25/21 08:15 Active Medications: Current Medications Acetaminophen (Acetaminophen 325 Mg Tablet) 650 mg PO Q6H PRN PRN Reason: Pain, Mild (Pain Scale 1-3) Last Admin: 02/14/22 13:38 Dose: 650 mg Aspirin (Aspirin Enteric Coated 81 Mg Tablet.) 81 mg PO DAILY [facility] Last Admin: 02/16/22 07:55 Dose: Not Given Atorvastatin Calcium (Atorvastatin Calcium 40 Mg Tablet) 40 mg PO BEDTIME [facility] Last Admin: 02/15/22 20:54 Dose: 40 mg Finasteride (Finasteride 5 Mg Tablet) 5 mg PO DAILY [facility] Last Admin: 02/16/22 07:55 Dose: Not Given Heparin Sodium (Porcine) (Heparin Sodium,Porcine 5,000 Unit/Ml Vial) 5,000 unit SUBCUT Q12H [facility] Last Admin: 02/17/22 07:58 Dose: 5,000 unit Cefepime HCl 1 gm/ Sodium (Chloride) 50 mls @ 100 mls/hr IV Q8H [facility] Last Infusion: 02/17/22 10:04 Dose: Infused Multivitamins 28 ml/ Trace Metals 2.8 ml/ Amino Acids/Electrolytes/Dextrose 720 mls @ 30 mls/hr IV DAILY@1800 [facility] Stop: 02/17/22 17:59 Last Admin: 02/16/22 20:07 Dose: 30 mls/hr Levetiracetam (Keppra) 500 mg in 100 mls @ 400 mls/hr IV Q12H [facility] Last Infusion: 02/17/22 05:53 Dose: Infused Acyclovir Sodium 715 mg/ (Sodium Chloride) 264.3 mls @ 264.3 mls/hr IV Q12H [facility] Last Admin: 02/17/22 10:05 Dose: 264.3 mls/hr Dextrose/Sodium Chloride (D5ns) 1,000 mls @ 80 mls/hr IVCONT .[id number] [facility] Last Admin: 02/17/22 07:57 Dose: 80 mls/hr Multivitamins 17 ml/ Trace Metals 1.7 ml/ Amino Acids/Electrolytes/Dextrose 1,200 mls @ 50 mls/hr IV DAILY@1800 [facility] Stop: 02/18/22 17:59 Olanzapine (Olanzapine 2.5 Mg Tablet) 2.5 mg PO DAILY [facility] Last Admin: 02/15/22 07:51 Dose: 2.5 mg Olanzapine (Olanzapine 2.5 Mg Tablet) 2.5 mg PO Q2H PRN PRN Reason: agitation Olanzapine (Olanzapine 10 Mg Vial) 2.5 mg IM DAILY PRN PRN Reason: Anxiety Ondansetron HCl (Ondansetron Hcl 4 Mg/2 Ml Vial) 4 mg IVPUSH Q8H PRN PRN Reason: Nausea and Vomiting Pharmacy Consult (Consult Rx Perform Med Rec) 1 each MISCELLANE ONCE PRN PRN Reason: Consult order Sodium Chloride (0.9 % Sodium Chloride Flush 3 Ml Syringe) 3 ml IVFLUSH QSHIFT [facility] Last Admin: 02/17/22 07:58 Dose: 3 ml Ticagrelor (Ticagrelor 90 Mg Tablet) 90 mg PO BID [facility] Last Admin: 02/16/22 07:55 Dose: Not Given Tolterodine Tartrate (Tolterodine Tartrate La 4 Mg Cap.Er.24h) 4 mg PO DAILY [facility] Last Admin: 02/16/22 07:55 Dose: Not Given Home Medications Medication Instructions Recorded Confirmed Last Taken Type aspirin 81 mg tablet,delayed 81 mg PO DAILY 12/12/21 02/07/22 02/07/22 History release lisinopril 5 mg tablet 5 mg PO DAILY 12/12/21 02/07/22 02/07/22 History rosuvastatin 10 mg tablet 1 tab PO BEDTIME 12/12/21 02/07/22 02/06/22 History ticagrelor 90 mg tablet 90 mg PO BID 12/12/21 02/07/22 02/06/22 History Physical Exam Vital Signs: Vital Signs: Last Vital Signs Temp 97.5 F 02/17/22 04:00 Pulse 61 02/17/22 08:00 Resp 20 02/17/22 08:00 BP 154/73 H 02/17/22 08:00 Pulse Ox 98 02/17/22 08:00 O2 Del Method 02/17/22 08:00 BMI result Body Mass Index 21.3 Neuro: Other: Laying in the bed with eyes closed. Compared to before, he was more responsive to painful stimuli with some purpose and tried to resist me. There was no high gaze deviation or any obvious twitches. Results Labs CBC & Chem 7: 02/17/22 06:10 02/17/22 06:10 Labs: Short CBC 02/17/22 Range/Units 06:10 WBC 4.0 L (4.8-10.8) X10*3/uL Hgb 8.8 L (14.0-18.0) g/dl Hct 27.3 L (42.0-52.0) % Plt Count 216 (160-400) X10*3/uL BMP 02/17/22 06:10 Sodium 138 Potassium 3.4 D Chloride 109 H Carbon Dioxide 22 BUN 25 H Creatinine 1.57 H Calcium 9.5 Liver Function 02/16/22 02/17/22 Range/Units 08:02 06:10 Albumin 2.7 L 2.5 L (3.5-5.0) g/dL EEG revealed partial status epilepticus with left hemispheric focus Microbiology Microbiology Results: Microbiology 02/07/22 16:46 Blood - Venous Blood Culture - Final No growth after 5 days. 02/07/22 16:50 Blood - Venous Blood Culture - Final No growth after 5 days. 02/07/22 15:43 Urine clean catch - Urine chung top Urine Culture - Final Pseudomonas aeruginosa Enterococcus faecalis Assessment and Plan (1) Epileptic encephalopathy: Status: Acute (2) Status epilepticus: Status: Acute (3) Non-convulsive status epilepticus: Status: Acute 81 years old man being treated for systemic infection. He was unresponsive in his EEG revealed findings suggestive of partial status epilepticus with left hemispheric focus. He was started on levetiracetam. His mental status was little bit improved but my recommendation is to continue levetiracetam 750 mg twice a day and obtain and other EEG whenever possible, probably on Saturday. I would also recommend covering him for viral infection and starting on acyclovir. If by Saturday, his mental status was still not significantly improved, a lumbar puncture is recommended for formal test for meningoencephalitis panel and an MRI brain. Procedures Date of Service Date of Service: 02/17/22
[2022-02-17] MEDS: LORazepam 2 MG/ML VIAL 1 MG IVPUSH (12:02)
--- NOTE | 2022-02-17 13:49 | HO.PM.IMPN ---
Subjective Subjective Date of Service: 02/17/22 Interval History: still seems in status Review of Systems unable to obtain Physical Exam Vital Signs: Vital Signs: Last Vital Signs Temp 97.5 F 02/17/22 04:00 Pulse 61 02/17/22 08:00 Resp 20 02/17/22 08:00 BP 154/73 H 02/17/22 08:00 Pulse Ox 98 02/17/22 08:00 O2 Del Method 02/17/22 08:00 BMI result Body Mass Index 21.3 ? Appearance: still same somlescent cvs: rrr, [id number]. res: air entry fair , no rales? or wheezin abd: no rebound or guarding ,nt, bs present. :Suprapubic site clean dry intact , Barry site is not leaking today ext pulses present , no cyanosis . neuro: motor grossly intact. Objective Data Active Medications Acetaminophen (Acetaminophen 325 Mg Tablet) 650 mg PO Q6H PRN PRN Reason: Pain, Mild (Pain Scale 1-3) Last Admin: 02/14/22 13:38 Dose: 650 mg Documented By: JAMIE Aspirin (Aspirin Enteric Coated 81 Mg Tablet.) 81 mg PO DAILY [facility] Last Admin: 02/16/22 07:55 Dose: Not Given Documented By: GOSIA Non-Admin Reason: Patient Refused Atorvastatin Calcium (Atorvastatin Calcium 40 Mg Tablet) 40 mg PO BEDTIME [facility] Last Admin: 02/15/22 20:54 Dose: 40 mg Documented By: MATTHEW Finasteride (Finasteride 5 Mg Tablet) 5 mg PO DAILY [facility] Last Admin: 02/16/22 07:55 Dose: Not Given Documented By: GOSIA Non-Admin Reason: Patient Refused Heparin Sodium (Porcine) (Heparin Sodium,Porcine 5,000 Unit/Ml Vial) 5,000 unit SUBCUT Q12H [facility] Last Admin: 02/17/22 07:58 Dose: 5,000 unit Documented By: ANURAG Cefepime HCl 1 gm/ Sodium (Chloride) 50 mls @ 100 mls/hr IV Q8H [facility] Last Infusion: 02/17/22 10:04 Dose: 0 mls/hr Documented By: ANURAG Multivitamins 28 ml/ Trace Metals 2.8 ml/ Amino Acids/Electrolytes/Dextrose 720 mls @ 30 mls/hr IV DAILY@1800 [facility] Stop: 02/17/22 17:59 Last Admin: 02/16/22 20:07 Dose: 30 mls/hr Documented By: LANIE Acyclovir Sodium 715 mg/ (Sodium Chloride) 264.3 mls @ 264.3 mls/hr IV Q12H [facility] Last Infusion: 02/17/22 11:24 Dose: 0 mls/hr Documented By: ANURAG Dextrose/Sodium Chloride (D5ns) 1,000 mls @ 80 mls/hr IVCONT .[id number] [facility] Last Admin: 02/17/22 07:57 Dose: 80 mls/hr Documented By: ANURAG Multivitamins 17 ml/ Trace Metals 1.7 ml/ Amino Acids/Electrolytes/Dextrose 1,200 mls @ 50 mls/hr IV DAILY@1800 [facility] Stop: 02/18/22 17:59 Levetiracetam 750 mg/ Sodium (Chloride) 107.5 mls @ 430 mls/hr IV Q12H [facility] Olanzapine (Olanzapine 2.5 Mg Tablet) 2.5 mg PO DAILY [facility] Last Admin: 02/15/22 07:51 Dose: 2.5 mg Documented By: GOSIA Olanzapine (Olanzapine 2.5 Mg Tablet) 2.5 mg PO Q2H PRN PRN Reason: agitation Olanzapine (Olanzapine 10 Mg Vial) 2.5 mg IM DAILY PRN PRN Reason: Anxiety Ondansetron HCl (Ondansetron Hcl 4 Mg/2 Ml Vial) 4 mg IVPUSH Q8H PRN PRN Reason: Nausea and Vomiting Pharmacy Consult (Consult Rx Perform Med Rec) 1 each MISCELLANE ONCE PRN PRN Reason: Consult order Sodium Chloride (0.9 % Sodium Chloride Flush 3 Ml Syringe) 3 ml IVFLUSH QSHIFT [facility] Last Admin: 02/17/22 07:58 Dose: 3 ml Documented By: ANURAG Ticagrelor (Ticagrelor 90 Mg Tablet) 90 mg PO BID [facility] Last Admin: 02/16/22 07:55 Dose: Not Given Documented By: GOSIA Non-Admin Reason: Patient Refused Tolterodine Tartrate (Tolterodine Tartrate La 4 Mg Cap.Er.24h) 4 mg PO DAILY [facility] Last Admin: 02/16/22 07:55 Dose: Not Given Documented By: GOSIA Non-Admin Reason: Patient Refused Labs CBC & Chem 7: 02/17/22 06:10 02/17/22 06:10 Labs: Laboratory Results - last 24 hr 02/16/22 02/16/22 02/17/22 08:02 14:43 06:10 MCV 90.1 MCH 29.0 MCHC 32.2 RDW 15.5 Plt Count 216 MPV 9.1 L Absolute Nucleated RBC 0.000 Nucleated RBC % (auto) 0.0 PT INR Anion Gap Estim Creat Clear Calc Estimated GFR POC Glucose 67 Random Glucose Calcium Phosphorus 2.6 L Magnesium 2.2 Albumin 2.7 L Triglycerides 02/17/22 02/17/22 02/17/22 06:10 06:10 10:22 MCV MCH MCHC RDW Plt Count MPV Absolute Nucleated RBC Nucleated RBC % (auto) PT 12.9 INR 1.1 Anion Gap 10 L Estim Creat Clear Calc 37.2 Estimated GFR 43 POC Glucose Random Glucose 91 Calcium 9.5 Phosphorus 2.5 L Magnesium 2.0 Albumin 2.5 L Triglycerides 112 Assessment and Plan (1) Urinary retention with incomplete bladder emptying: Status: Acute (2) UTI (urinary tract infection): Status: Acute (3) ALETHEA (acute kidney injury): Status: Acute (4) Dementia with behavioral disturbance: Status: Acute Plan 81-year-old male with 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 Review of chart demonstrates is similar to the last presentation of admission end of November. Status epilepticus?/ metabolic encephalopathy Hypercalcemia seems to be improved CT head-negative except brain volume loss which more likely goes to a dementia B12 and TSH normal eeg-possible status epilepticus MRI neg, LP can be once off 3 days tigaclor /asa moniter neurochecks ,tele abg seems fine Neuro recomended to added another iv keppra loading 1 gm ,adjusted keppra iv 750mg q12. Seen by ICU -patient condition remain somlescent -need monitering in ICU. UTI -Pseudomonas/VRE in urine cultures; urine VRE; Pseudomonas in blood -cefepime 1 g Q 24 hours; add Ampicillin for VRE -seen by Urology for suprapubic catheter leaking...? Antispasmodic ineffective.? Will ask to recheck . ALETHEA on CKD 3 --improved with volume repletion -follow renals/divalents iD saw the patient-recomended cefepime for 14 days Hypertension -improved with volume repletion -hold antihypertensives? add back when appropriate Coronary artery disease -2D echo 11/06 demonstrates an LVEF between 30 and 35% -cautious fluids hold dual antiplatelet agents due ti can not take po -follow CBC Dementia with Behavioral disturbances : hold zyprexa currentlyin status . Full code Heparin Patient will require ongoing hospitalization for : Status epilepticus-need neuro status monitoring, telemetry monitoring, IV Keppra loading-Need ICu level of care due to status epilepticus. Quality Stroke Does the patient have a stroke diagnosis?: No VTE Prior VTE?: No VTE Risk Level:: Medical - moderate - high VTE Device Contraindication: Treatment Not Indicated VTE Drug Contraindication: N/A - Med Ordered
[2022-02-17] MEDS: levETIRAcetam in NaCl (iso-os) 1,000 MG/100 ML PIGGYBACK 400 MG IV (14:09)
--- NOTE | 2022-02-17 14:10 | PM.PNNEP ---
Subjective Subjective Date of Service: 02/17/22 Interval history: still seems in status Partner at the bed side Physical Exam Vital Signs: Vital Signs: Last Vital Signs Temp 97.5 F 02/17/22 04:00 Pulse 61 02/17/22 08:00 Resp 20 02/17/22 08:00 BP 154/73 H 02/17/22 08:00 Pulse Ox 98 02/17/22 08:00 O2 Del Method 02/17/22 08:00 BMI result Body Mass Index 21.3 ? Appearance: still same somlescent cvs: rrr, [id number]. res: air entry fair , no rales? or wheezin abd: no rebound or guarding ,nt, bs present. :Suprapubic site clean dry intact , Barry site is not leaking today ext pulses present , no cyanosis . neuro: motor grossly intact. Objective Data Labs CBC & Chem 7: 02/17/22 06:10 02/17/22 06:10 Labs: Laboratory Results - last 24 hr 02/16/22 02/16/22 02/17/22 08:02 14:43 06:10 WBC 4.0 L RBC 3.03 L Hgb 8.8 L Hct 27.3 L MCV 90.1 MCH 29.0 MCHC 32.2 RDW 15.5 Plt Count 216 MPV 9.1 L Absolute Nucleated RBC 0.000 Nucleated RBC % (auto) 0.0 PT INR Sodium Potassium Chloride Carbon Dioxide Anion Gap BUN Creatinine Estim Creat Clear Calc Estimated GFR POC Glucose 67 Random Glucose Calcium Phosphorus 2.6 L Magnesium 2.2 Albumin 2.7 L Triglycerides 02/17/22 02/17/22 02/17/22 06:10 06:10 10:22 WBC RBC Hgb Hct MCV MCH MCHC RDW Plt Count MPV Absolute Nucleated RBC Nucleated RBC % (auto) PT 12.9 INR 1.1 Sodium 138 Potassium 3.4 D Chloride 109 H Carbon Dioxide 22 Anion Gap 10 L BUN 25 H Creatinine 1.57 H Estim Creat Clear Calc 37.2 Estimated GFR 43 POC Glucose Random Glucose 91 Calcium 9.5 Phosphorus 2.5 L Magnesium 2.0 Albumin 2.5 L Triglycerides 112 Microbiology Microbiology Results: Microbiology 02/07/22 16:46 Blood - Venous Blood Culture - Final No growth after 5 days. 02/07/22 16:50 Blood - Venous Blood Culture - Final No growth after 5 days. 02/07/22 15:43 Urine clean catch - Urine chung top Urine Culture - Final Pseudomonas aeruginosa Enterococcus faecalis Procedures Date of Service Date of Service: 02/17/22 Assessment & Plan Assessment and plan (1) ALETHEA (acute kidney injury): Status: Acute (2) Sepsis secondary to UTI: Status: Acute (3) Status epilepticus: Status: Acute (4) Urinary retention with incomplete bladder emptying: Status: Acute Plan 1. ALETHEA superimposed on CKD in a setting of Obstructive uropathy Currently has SPC Non oliguric Creatinine is trending down and close to baseline 2. Anemia Multifactorial 3.Hypercalcemia PTH still pending SPEP - No MCGP in august 2021 Start IV NS at 80 cc/hr pending PTH May need further workup based on PTH 4. Dementia Psychiatry note appreciated On Kepra for seizures D/w medical team and Family Time Spent With Patient Time: Total time spent is greater than 50% in coordination of care (as documented) at patient's floor/unit and/or counseling patient: Progress Note: Quality Stroke Does the patient have a stroke diagnosis?: No
[2022-02-17 15:28] LABS: ABG Base Excess -1.5 mmol/L; ABG HCO3 22 mmol/L (22-26); ABG pCO2 33 mmHg (32-45); ABG pH 7.43 (7.35-7.45); ABG pO2 99 mmHg (83-108)
[2022-02-17] MEDS: levETIRAcetam 750 MG in 0.9 % Sodium Chloride 100 ML 430 MG IV (17:27)
--- NOTE | 2022-02-17 18:42 | PC.NURSE ---
Patient arrived on unit at 1745, admission to unit assessment completed - see admission assessment. T wave inversion noted on ekg, patient unresponsive unless to deep pain - MD notified, no further orders given. Seizure precautions in place with bed rail pads in place.
[2022-02-17 19:03] LABS: ABG Refer to POC result
[2022-02-18] VITALS (25 sets, daily range): BP systolic 92–159; BP diastolic 42–87; PULSE 58–93; RESP 13–24; TEMP 36.3–36.9; O2SAT 94–98; BMI 20.9
[2022-02-18] MEDS: 0.9 % Sodium Chloride Flush 3 ML SYRINGE IVFLUSH ×3 (00:02→16:49)
[2022-02-18] MEDS: cefEPime HCl 1 GM in 0.9 % Sodium Chloride 50 ML IV ×3 (00:22→16:48)
[2022-02-18] MEDS: levETIRAcetam 750 MG in 0.9 % Sodium Chloride 100 ML 430 MG IV ×2 (04:57→17:20)
[2022-02-18 06:30] LABS: Albumin Level 2.8 g/dL (3.5-5.0); Anion Gap 13 (12-20); Blood Urea Nitrogen 24 mg/dL (9-16); Calcium 9.3 mg/dL (8.4-10.2); Carbon Dioxide 22 mmol/L (22-29); Chloride 112 mmol/L (96-108); Creatinine Clr Calc Pharmacy 40.2; Estimated Glomerular Filt Rate 47; Glucose Random 128 mg/dL (60-115); Phosphorus 2.4 mg/dL (2.7-4.5); Potassium 3.4 mmol/L (3.3-5.1); Sodium 144 mmol/L (135-145)
--- NOTE | 2022-02-18 06:36 | PC.NURSE ---
CARE ASSUMED 23:15...SERIAL NEURO CHECKS UNCHANGED OVERNIGHT..REMAINS LETHARGIC..DOES NOT OPEN EYES OR FOLLOW COMMANDS..PUPILS 4MM/REACTIVE..(+) GAG/COUGH...EXTREMETIES TREMULOUS AND/OR RIGID AT TIMES...RAISES ARMS TOWARDS FACE WITH ORAL CARE BUT NOT TO COMMAND....SUPRAPUBIC ACTHETER DRAING YELLOW URINE...VSS
[2022-02-18] MEDS: Potassium Phosphate/NS 15 MMOL/250 ML PLAST..BAG 62.5 MMOL IV (09:19)
[2022-02-18] MEDS: Heparin Sodium,Porcine 5,000 UNIT/ML VIAL 5000 UNIT SUBCUT ×2 (09:33→21:50)
[2022-02-18] MEDS: Albumin Human 25 % 100 ML IV ×3 (09:33→22:15)
--- NOTE | 2022-02-18 10:05 | W.PM.CCHP ---
Procedures Date of Service Date of Service: 02/18/22 Central Line Placement Right IJ: Central Line Comments: right internal jugular central venous triple-lumen catheter emergently placed under ultrasound guidance and usual sterile conditions for vascular access with no immediate complications. Line position verified on chest x-ray.
--- NOTE | 2022-02-18 11:52 | P.PNCC_ITS ---
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 Hospital course complicated by worsening encephalopathy, evaluated by neurology and EEG showing seizure activity on 02/16/2022, later that day with purposeful movements. started on Keppra. On 02/17/2022 with worsening encephalopathy, transferred to intensive care for close monitoring. No events overnight. Critical Care Time (minutes): 0 Physical Exam Vital Signs: Vital Signs: Last Vital Signs Temp 97.4 F 02/18/22 08:00 Pulse 77 02/18/22 11:00 Resp 20 02/18/22 11:00 BP 130/69 02/18/22 11:00 Pulse Ox 95 02/18/22 11:00 O2 Del Method 02/18/22 11:00 BMI result Body Mass Index 20.9 Const: General: no acute distress and lethargic ( Arousable to noxious stimuli and response purposefully) Orientation/consciousness: lethargic ( Arousable to noxious stimuli and response purposefully) Eyes: Sclerae: sclerae normal Neck: Neck: Yes no lymphadenopathy, Yes trachea midline and Yes supple Resp: Effort & Inspection: normal respiratory effort and no respiratory distress Auscultation: clear to auscultation bilaterally Cardio: Rate: regular rate Rhythm: regular rhythm Heart sounds: no gallops, no murmurs and no rubs GI: Palpation (GI): Soft to palpation and Other GI palpation findings present ( Nontender) Auscultation: normal bowel sounds Extrem: General: Yes no pedal edema, No clubbing and No cyanosis Objective Data Labs CBC & Chem 7: 02/17/22 06:10 02/18/22 05:34 Labs: Laboratory Results - last 24 hr 02/17/22 02/18/22 15:21 05:34 O2 Saturation 99.0 ABG pH at Pt Temp 7.43 ABG pCO2 at Pt Temp 33 ABG pO2 at Pt Temp 99 ABG HCO3 22 ABG Base Excess (Actual) -1.5 Sodium 144 Potassium 3.4 Chloride 112 H Carbon Dioxide 22 Anion Gap 13 BUN 24 H Creatinine 1.43 H Estim Creat Clear Calc 40.2 Estimated GFR 47 Random Glucose 128 H D Calcium 9.3 Phosphorus 2.4 L Magnesium 2.0 Albumin 2.8 L Microbiology Microbiology Results: Microbiology 02/07/22 16:46 Blood - Venous Blood Culture - Final No growth after 5 days. 02/07/22 16:50 Blood - Venous Blood Culture - Final No growth after 5 days. 02/07/22 15:43 Urine clean catch - Urine chung top Urine Culture - Final Pseudomonas aeruginosa Enterococcus faecalis Progress Note: A&P Assessment and plan (1) Encephalopathy: Status: Acute (2) Non-convulsive status epilepticus: Status: Acute (3) Dementia with behavioral disturbance: Status: Acute (4) Coronary artery disease: Status: Acute (5) UTI (urinary tract infection): Status: Acute Plan Assessment: 81-year-old gentleman with underlying multiple medical issues admitted with UTI and encephalopathy further complicated by seizures Plan: Neuro: Seizures on prior EEG. neurology service care appreciated. Continue Keppra. MRI with no acute findings. LP is pending. No evidence of status this a.m. as patient is lethargic, but wakes up to noxious stimuli and response pur posefully to them Cardiac: No acute issues. underlying history of systolic cardiomyopathy with EF of 30-35%. Pulmonary: No acute issues. Renal: acute renal failure, improving. Non oliguric. History of suprapubic catheter for penile obstruction. Continue to monitor renal indices urine output. Endo: No acute issues. GI: No acute issues. ID: VRE/Pseudomonas UTI, continue on Cefepime. Heme/Onc: No acute issues. Psych: No acute issues. Miscellaneous: No acute issues. Prophylaxis: Heparin Diet: TPN Quality Stroke Does the patient have a stroke diagnosis?: No VTE Prior VTE?: No VTE Risk Level:: Medical - moderate - high VTE Device Contraindication: Treatment Not Indicated VTE Drug Contraindication: N/A - Med Ordered
[2022-02-18 15:39] LABS: Calcium (PTHI) 10.5 mg/dL (8.6-10.3); PTHI 7 pg/mL (16-77)
--- NOTE | 2022-02-18 16:14 | PM.PNNEP ---
Subjective Subjective Date of Service: 02/18/22 Interval history: Now in the ICU Physical Exam Vital Signs: Vital Signs: Last Vital Signs Temp 98.4 F 02/18/22 12:00 Pulse 65 02/18/22 16:00 Resp 24 H 02/18/22 16:00 BP 126/69 02/18/22 16:00 Pulse Ox 96 02/18/22 16:00 O2 Del Method 02/18/22 16:00 BMI result Body Mass Index 20.9 Const:?? General: no acute distress and liz rgic (? Arousable to noxious stimuli and response purp osefully)? Orienta tion/consciousness : lethargic (? [place]elope usable to noxious stimuli and respon se purposefully) Eyes:?? Sclerae: sclerae n ormal Neck:?? Neck: Yes no lymph adenopathy, Yes tr achea midline and Yes supple Resp:?? Effort & Inspectio n: normal respirat ory effort and no respiratory distre ss? Auscultation: clear to auscultat ion bilaterally Cardio:?? Rate: regular rate ? Rhythm: regular rhythm? Heart soun ds: no gallops, no murmurs and no ru bs GI:?? Palpation (GI): So ft to palpation an d Other GI palpati on findings presen t (? Nontender)? A uscultation: alma l bowel sounds Extrem:?? General: Yes no pe ant edema, No club mery and No cyanos is Objective Data Labs CBC & Chem 7: 02/17/22 06:10 02/18/22 05:34 Labs: Laboratory Results - last 24 hr 02/15/22 02/18/22 06:32 05:34 Sodium 144 Potassium 3.4 Chloride 112 H Carbon Dioxide 22 Anion Gap 13 BUN 24 H Creatinine 1.43 H Estim Creat Clear Calc 40.2 Estimated GFR 47 Random Glucose 128 H D Calcium 9.3 Phosphorus 2.4 L Magnesium 2.0 Albumin 2.8 L PTH Intact 7 L Calcium (PTH Intact) 10.5 H Microbiology Microbiology Results: Microbiology 02/07/22 16:46 Blood - Venous Blood Culture - Final No growth after 5 days. 02/07/22 16:50 Blood - Venous Blood Culture - Final No growth after 5 days. 02/07/22 15:43 Urine clean catch - Urine chung top Urine Culture - Final Pseudomonas aeruginosa Enterococcus faecalis Procedures Date of Service Date of Service: 02/18/22 Assessment & Plan Assessment and plan (1) ALETHEA (acute kidney injury): Status: Acute (2) UTI (urinary tract infection): Status: Acute (3) Status epilepticus: Status: Acute (4) Sepsis secondary to UTI: Status: Acute (5) Urinary retention with incomplete bladder emptying: Status: Acute Plan 1. ALETHEA superimposed on CKD in a setting of Obstructive uropathy Currently has SPC Non oliguric Creatinine is better and close to baseline 2. Anemia Multifactorial 3.Hypercalcemia PTH is low( Given age Malignancy high in the D Dx)- Will order 25 OH vit D / Parathyroid related peptide SPEP - No MCGP in august 2021 4. Dementia Psychiatry note appreciated On Kepra for seizures In the ICU Time Spent With Patient Time: Total time spent is greater than 50% in coordination of care (as documented) at patient's floor/unit and/or counseling patient: Progress Note: Quality Stroke Does the patient have a stroke diagnosis?: No
[2022-02-18] MEDS: Fat Emulsions 20% 250 ML 20 ML IVCONT (18:47)
--- NOTE | 2022-02-18 20:04 | PC.NURSE ---
ON ANITIAL ASSESSMENT PATIENT WAS LETHARGIC AND RESPONSIVE TO MODERATE/LIGHT PAIN. SHIFT PROCEEDED PATIENT BECAME MORE AROUSABLE TO ANY TOUCH. IV ON LEFT FOREARM INFILTRATED, NEW LEFT FOREARM IV PLACED. UNABLE TO OBTAIN OTHER PERIPHERAL IVS. MD DETERMINED NEED FOR TLC PLACEMENT FOR ADDITIONAL ACCESS. CHEST X-RAY PREFORMED SHOWING PROPER PLACEMENT. PATIENT REPOSITIONED Q2HR, ROUTINE MOUTH CARE PREFORMED, FAMILY AND PATIENT UPDATED ON HEALTH STATUS.
[2022-02-19] VITALS (21 sets, daily range): BP systolic 109–163; BP diastolic 52–78; PULSE 66–81; RESP 16–25; TEMP 36.8–37; O2SAT 94–98; BMI 19.7
[2022-02-19] MEDS: cefEPime HCl 1 GM in 0.9 % Sodium Chloride 50 ML IV ×4 (01:31→23:23)
[2022-02-19] MEDS: Albumin Human 25 % 100 ML IV (01:41)
[2022-02-19] MEDS: 0.9 % Sodium Chloride Flush 3 ML SYRINGE IVFLUSH ×4 (01:46→23:27)
[2022-02-19 05:20] LABS: VBG Base Excess 0.6 mmol/L; VBG HCO3 24 mmol/L (22-26); VBG pCO2 34 mmHg; VBG pH 7.45 (7.32-7.43); VBG pO2 42 mmHg
[2022-02-19 05:30] LABS: MANUAL DIFF FLAG NO
[2022-02-19 05:59] LABS: Albumin Level 3.5 g/dL (3.5-5.0); Anion Gap 10 (12-20); Blood Urea Nitrogen 25 mg/dL (9-16); Calcium 9.4 mg/dL (8.4-10.2); Carbon Dioxide 25 mmol/L (22-29); Chloride 113 mmol/L (96-108); Creatinine Clr Calc Pharmacy 44.9; Estimated Glomerular Filt Rate 54; Glucose Random 116 mg/dL (60-115); Magnesium 1.8 mg/dL (1.6-2.6); Phosphorus 2.5 mg/dL (2.7-4.5); Potassium 3.6 mmol/L (3.3-5.1); Sodium 144 mmol/L (135-145)
[2022-02-19 06:00] LABS: Venous Blood Gas Refer to POC result
[2022-02-19] MEDS: Fat Emulsions 20% 250 ML 20 ML IVCONT ×2 (06:00→17:51)
[2022-02-19] MEDS: levETIRAcetam 750 MG in 0.9 % Sodium Chloride 100 ML 430 MG IV ×2 (06:01→17:50)
[2022-02-19 06:11] LABS: Basophils Percent Auto 0.8 % (0-2); Eosinophils Absolute Auto 0.3 X10*3/uL (0.0-0.4); Eosinophils Percent Auto 7.5 % (0-4); Hemoglobin 7.8 g/dl (14.0-18.0); Imm Gran Abs Auto 0.01 X10*3/uL (0.00-0.03); Imm Gran Pct Auto 0.3 % (0.0-0.4); Lymphocytes Absolute Auto 0.8 X10*3/uL (1.2-4.9); Lymphocytes Percent Auto 20.8 % (20-40); Mean Corpuscular HGB Conc 32.5 g/dl (31.0-36.0); Mean Corpuscular Hemoglobin 28.8 pg (27.0-33.0); Mean Corpuscular Volume 88.6 fL (80.0-98.0); Mean Platelet Volume 9.3 fL (9.4-12.4); Monocytes Absolute Auto 0.6 X10*3/uL (0.1-1.2); Monocytes Percent Auto 14.3 % (2-11); Neutrophils Absolute Auto 2.3 x10*3/uL (2.0-8.3); Neutrophils Percent Auto 56.3 % (45-73); Platelet Count 188 X10*3/uL (160-400); Red Blood Count 2.71 X10*6/uL (4.60-5.80); Red Cell Distribution Width 15.5 % (11.0-16.0)
[2022-02-19 06:21] LABS: Vitamin D 25-OH Total 23.5 ng/mL (>30)
[2022-02-19] MEDS: Potassium Phosphate/NS 15 MMOL/250 ML PLAST..BAG 62.5 MMOL IV (08:58)
--- NOTE | 2022-02-19 09:18 | MHC.CM.PN ---
Patient transferred to ICU on 02/17 due to worsening encephalopathy. Anticipate patient will transfer to [facility] when medically stable. Continue to monitor for d/c needs.
[2022-02-19 09:39] LABS: INTERNATIONAL NORM RATIO 1.2 (0.9-1.1); Prothrombin Time 13.5 SEC (10.0-13.1)
[2022-02-19 09:41] LABS: Partial Thromboplastin Time 26.7 SEC (26.0-36.4)
--- NOTE | 2022-02-19 11:03 | MHC.CLN ---
F/U PT IS MODERATELY MALNOURISHED PT WITH MILDLY DEPLETED MUSCLE MASS, 14% SIGNIFICANT WT LOSS X 6 MONTHS WITH CHRONIC POOR PO INTAKE PT TRANSFERRED TO ICU NOW NPO PER NSG PT CURRENTLY RECEIVING PPN D10AA4.25 AT GOAL RATE 70ML/HR WITH 20ML OF 20% LIPIDS PROVIDES 1817 TOTAL KCALS (27KCALS/KG BASED ON ACTUAL), 71G PROTEIN (1.08G/KG) DISCUSSED WITH PHARMACY REPLETE LYTES NEEDED SEE ALSO FULL CLINICAL NUTRITION ASSESSMENT
--- NOTE | 2022-02-19 11:46 | PM.PNNEP ---
Subjective Subjective Date of Service: 02/20/22 Interval history: Now in the ICU Physical Exam Vital Signs: Vital Signs: Last Vital Signs Temp 98.6 F 02/19/22 08:00 Pulse 69 02/19/22 10:00 Resp 23 H 02/19/22 10:00 BP 147/78 H 02/19/22 10:00 Pulse Ox 96 02/19/22 10:00 O2 Del Method 02/19/22 10:00 BMI result Body Mass Index 19.7 Const: General: comfortable Neck: Neck: Yes no lymphadenopathy Resp: Effort & Inspection: no respiratory distress Auscultation: clear to auscultation bilaterally Cardio: Rate: regular rate GI: Other: Soft nontender nondistended normoactive bowel sounds. Suprapubic site clean dry intact however leaking urine around catheter Neuro: General: moves all extremities Objective Data Labs CBC & Chem 7: 02/20/22 09:25 02/20/22 09:25 Labs: Laboratory Results - last 24 hr 02/15/22 02/19/22 02/19/22 06:32 05:13 05:13 WBC 4.0 L RBC 2.71 L Hgb 7.8 L Hct 24.0 L MCV 88.6 MCH 28.8 MCHC 32.5 RDW 15.5 Plt Count 188 MPV 9.3 L Immature Gran % (Auto) 0.3 Neut % (Auto) 56.3 Lymph % (Auto) 20.8 [place] % (Auto) 14.3 H Eos % (Auto) 7.5 H Baso % (Auto) 0.8 Lymph # (Auto) 0.8 L [place] # (Auto) 0.6 Eos # (Auto) 0.3 Baso # (Auto) 0.0 Abs Immat Gran (auto) 0.01 Absolute Neuts (auto) 2.3 Absolute Nucleated RBC 0.000 Nucleated RBC % (auto) 0.0 PT INR APTT VBG pH VBG pCO2 VBG pO2 VBG HCO3 VBG O2 Saturation VBG Base Excess Sodium 144 Potassium 3.6 Chloride 113 H Carbon Dioxide 25 Anion Gap 10 L BUN 25 H Creatinine 1.28 Estim Creat Clear Calc 44.9 Estimated GFR 54 Random Glucose 116 H Calcium 9.4 Phosphorus 2.5 L Magnesium 1.8 Albumin 3.5 25-OH Vitamin D Total PTH Intact 7 L Calcium (PTH Intact) 10.5 H 02/19/22 02/19/22 02/19/22 05:13 05:14 09:09 WBC RBC Hgb Hct MCV MCH MCHC RDW Plt Count MPV Immature Gran % (Auto) Neut % (Auto) Lymph % (Auto) [place] % (Auto) Eos % (Auto) Baso % (Auto) Lymph # (Auto) [place] # (Auto) Eos # (Auto) Baso # (Auto) Abs Immat Gran (auto) Absolute Neuts (auto) Absolute Nucleated RBC Nucleated RBC % (auto) PT 13.5 H INR 1.2 H APTT 26.7 VBG pH 7.45 H VBG pCO2 34 VBG pO2 42 VBG HCO3 24 VBG O2 Saturation 71.0 VBG Base Excess 0.6 Sodium Potassium Chloride Carbon Dioxide Anion Gap BUN Creatinine Estim Creat Clear Calc Estimated GFR Random Glucose Calcium Phosphorus Magnesium Albumin 25-OH Vitamin D Total 23.5 PTH Intact Calcium (PTH Intact) Microbiology Microbiology Results: Microbiology 02/07/22 16:46 Blood - Venous Blood Culture - Final No growth after 5 days. 02/07/22 16:50 Blood - Venous Blood Culture - Final No growth after 5 days. 02/07/22 15:43 Urine clean catch - Urine chung top Urine Culture - Final Pseudomonas aeruginosa Enterococcus faecalis Procedures Date of Service Date of Service: 02/19/22 Assessment & Plan Assessment and plan (1) ALETHEA (acute kidney injury): Status: Acute Plan 1. ALETHEA superimposed on CKD in a setting of Obstructive uropathy Currently has SPC Non oliguric Creatinine is trending down and close to baseline 2. Anemia Multifactorial 3.Hypercalcemia PTH suppressed SPEP - No MCGP in august 2021 Check PTH related peptide Avoid all Ca/Vit D supplementation REPEAT Calcium 4. Dementia Psychiatry note appreciated Time Spent With Patient Time: Total time spent is greater than 50% in coordination of care (as documented) at patient's floor/unit and/or counseling patient: Progress Note: Quality Stroke Does the patient have a stroke diagnosis?: No
--- NOTE | 2022-02-19 11:50 | P.PNUR_ITS ---
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 Hospital course complicated by worsening encephalopathy, and EEG showing seizure activity? on 02/16/2022. suprapubic tube had been readjusted on 02/13 with toney purulent material Barry catheter draining clear urine today care per ICU team regarding encephalopathy Physical Exam Vital Signs: Vital Signs: Last Vital Signs Temp 98.6 F 02/19/22 08:00 Pulse 69 02/19/22 10:00 Resp 23 H 02/19/22 10:00 BP 147/78 H 02/19/22 10:00 Pulse Ox 96 02/19/22 10:00 O2 Del Method 02/19/22 10:00 BMI result Body Mass Index 19.7 Const: General: cooperative, healthy appearing, comfortable and no acute distress Orientation/consciousness: patient oriented x3 HEENT: Face and sinus: Yes normal facial exam Mouth: moist mucous membranes Neck: Neck: Yes normal visual inspection, Yes full ROM and Yes trachea midline Chest: Chest palpation & inspection: normal inspection of the chest Resp: Effort & Inspection: normal respiratory effort, able to speak in complete sentences and no respiratory distress GI: Inspection: Yes normal to inspection Back/Spine/Pelvis: Cervical Spine: normal cervical lordosis Thoracic/Lumbar Spine: thoracic and lumbar spine normal to inspection Skin: General skin exam: no rashes or lesions noted Neuro: General: patient oriented x3, tone normal and moves all extremities Extrem: General: Yes normal to inspection and Yes capillary refill normal Urology Results Labs CBC & Chem 7: 02/19/22 05:13 02/19/22 05:13 Labs: Laboratory Results - last 24 hr 02/15/22 02/19/22 02/19/22 06:32 05:13 05:13 WBC 4.0 L RBC 2.71 L Hgb 7.8 L Hct 24.0 L MCV 88.6 MCH 28.8 MCHC 32.5 RDW 15.5 Plt Count 188 MPV 9.3 L Immature Gran % (Auto) 0.3 Neut % (Auto) 56.3 Lymph % (Auto) 20.8 [place] % (Auto) 14.3 H Eos % (Auto) 7.5 H Baso % (Auto) 0.8 Lymph # (Auto) 0.8 L [place] # (Auto) 0.6 Eos # (Auto) 0.3 Baso # (Auto) 0.0 Abs Immat Gran (auto) 0.01 Absolute Neuts (auto) 2.3 Absolute Nucleated RBC 0.000 Nucleated RBC % (auto) 0.0 PT INR APTT VBG pH VBG pCO2 VBG pO2 VBG HCO3 VBG O2 Saturation VBG Base Excess Sodium 144 Potassium 3.6 Chloride 113 H Carbon Dioxide 25 Anion Gap 10 L BUN 25 H Creatinine 1.28 Estim Creat Clear Calc 44.9 Estimated GFR 54 Random Glucose 116 H Calcium 9.4 Phosphorus 2.5 L Magnesium 1.8 Albumin 3.5 25-OH Vitamin D Total PTH Intact 7 L Calcium (PTH Intact) 10.5 H 02/19/22 02/19/22 02/19/22 05:13 05:14 09:09 WBC RBC Hgb Hct MCV MCH MCHC RDW Plt Count MPV Immature Gran % (Auto) Neut % (Auto) Lymph % (Auto) [place] % (Auto) Eos % (Auto) Baso % (Auto) Lymph # (Auto) [place] # (Auto) Eos # (Auto) Baso # (Auto) Abs Immat Gran (auto) Absolute Neuts (auto) Absolute Nucleated RBC Nucleated RBC % (auto) PT 13.5 H INR 1.2 H APTT 26.7 VBG pH 7.45 H VBG pCO2 34 VBG pO2 42 VBG HCO3 24 VBG O2 Saturation 71.0 VBG Base Excess 0.6 Sodium Potassium Chloride Carbon Dioxide Anion Gap BUN Creatinine Estim Creat Clear Calc Estimated GFR Random Glucose Calcium Phosphorus Magnesium Albumin 25-OH Vitamin D Total 23.5 PTH Intact Calcium (PTH Intact) Progress Note: A&P Assessment and plan (1) Sepsis secondary to UTI: Status: Acute Plan continue supportive ICU care Time Spent With Patient Time: Total time spent is greater than 50% in coordination of care (as documented) at patient's floor/unit and/or counseling patient: Progress Note: Quality Stroke Does the patient have a stroke diagnosis?: No
[2022-02-19 15:18] LABS: CSF Appearance Clear, Colorless; CSF Tube # 2
[2022-02-19 15:19] LABS: Glucose CSF 59 mg/dL
[2022-02-19 16:16] LABS: Appearance CSF CLEAR; CSF Tube # 4; Color CSF COLORLESS; White Blood Cell CSF 3 MM*3
[2022-02-19 16:17] LABS: Appearance CSF CLEAR; CSF Tube # 1; Color CSF COLORLESS; Lymphocytes CSF 100 %; Red Blood Cell CSF 10 MM*3; Red Blood Cell CSF 6 MM*3; White Blood Cell CSF 3 MM*3
--- NOTE | 2022-02-19 20:20 | PM.CCPN ---
Subjective Subjective Date of Service: 02/19/22 Interval History: Mr. Valenzuela was transferred to ICU on 02/17 bec of altered mental status. 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 The patient was admitted on 02/07/2022 for altered MS with recurrent UTI 2? Pseudomonas/VRE and ALETHEA. ?Reportedly, the patient lives at home with his , and 10 days [employer] his mental status was completely normal and he was fully independently normally functional. He was admitted to Medicine and treated for UTI and hypovolemia.? His renal indices improved.? Hospital course was complicated by worsening encephalopathy/agitated delirium.? Seen by urology, ID, renal, psychiatry, and neurology.? On 02/15, placed on cefepime for pseudomonas bacteremia and ITI at suggestion of ID.? EEG on 02/[address] Mari was suggestive of partial status epilepticus with left hemispheric focus, despite later that day having purposeful movements. ?He was started on Keppra and acyclovir.? On 02/17/2022 brain MRI showed global cerebral volume loss with significant temporal lobe predominance and mild chronic microangiopathy.? There was a chronic lacunar infarct in the right vinayak.? There are no acute findings.? Later that day, with mental status thought to be worsening, the patient was transferred to ICU for closer monitoring. Yesterday (02/18), a CVL was placed for TPN and access. ?He was responding purposefully to painful stimuli.? Still nonverbal. Today underwent LP in radiology.? All results negative, including Gram stain (no polys, no organisms).? On my exam, he readily opens eyes to vigorous verbal stimuli, and responds purposefully to pain -- this is his best MS in last 48hrs -- but otherwise remains 100% noninteractive and nonverbal.? He has a good cough and gag reflex.? HR 72, SR.? BP 124/56.? RR 17 on room air, w SpO2 97%.? Central venous gas this morning showed 7.45/34/0. ?Afebrile.? No JVD at 30?.? Chest CTA.? Sort heart tones.? Abd benign.? Trace central and peripheral edema. LABORATORY DATA:? Below.? Notably, remains leukopenic and anemic.? BUN/creatinine down to 25/1.2.? Potassium 3.6, phosphorus 2.5, magnesium 1.8.? Albumin 3.5. IMPRESSION: 1. UTI.? On 14 day course of cefepime, per ID suggestion. 2. Encephalopathy.? Etiology still undetermined.? EEG at the time on February 16 was suggestive of partial status.? Put has had multiple clinical exam since then inconsistent with status epilepticus, as he was purposefully responsive, including on yesterday's and today's exam.? Continue Keppra.? I don?t see any further need for acyclovir. 3. ALETHEA.? Was prob 2? hypovolemia.? Resolving. 4. 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 5. Nutrition via TPN.? ? Enteral feeds via Kafoeed/Dobhoff tube. Stable for transfer to [facility].? Signed out to Dr. Kim. Critical Care Time (minutes): 0 Physical Exam Vital Signs: Vital Signs: Last Vital Signs Temp 98.3 F 02/19/22 19:00 Pulse 70 02/19/22 19:00 Resp 18 02/19/22 19:00 BP 133/67 02/19/22 19:00 Pulse Ox 98 02/19/22 19:00 O2 Del Method 02/19/22 19:00 BMI result Body Mass Index 19.7 Objective Data Labs CBC & Chem 7: 02/19/22 05:13 02/19/22 05:13 Labs: Laboratory Results - last 24 hr 02/19/22 02/19/22 02/19/22 05:13 05:13 05:13 WBC 4.0 L RBC 2.71 L Hgb 7.8 L Hct 24.0 L MCV 88.6 MCH 28.8 MCHC 32.5 RDW 15.5 Plt Count 188 MPV 9.3 L Immature Gran % (Auto) 0.3 Neut % (Auto) 56.3 Lymph % (Auto) 20.8 [place] % (Auto) 14.3 H Eos % (Auto) 7.5 H Baso % (Auto) 0.8 Lymph # (Auto) 0.8 L [place] # (Auto) 0.6 Eos # (Auto) 0.3 Baso # (Auto) 0.0 Abs Immat Gran (auto) 0.01 Absolute Neuts (auto) 2.3 Absolute Nucleated RBC 0.000 Nucleated RBC % (auto) 0.0 PT INR APTT VBG pH VBG pCO2 VBG pO2 VBG HCO3 VBG O2 Saturation VBG Base Excess Sodium 144 Potassium 3.6 Chloride 113 H Carbon Dioxide 25 Anion Gap 10 L BUN 25 H Creatinine 1.28 Estim Creat Clear Calc 44.9 Estimated GFR 54 Random Glucose 116 H Calcium 9.4 Phosphorus 2.5 L Magnesium 1.8 Albumin 3.5 25-OH Vitamin D Total 23.5 CSF Tube Number CSF Volume CSF Appearance CSF Color CSF WBC CSF RBC CSF Lymphocytes CSF Appearance (b) CSF Glucose CSF Total Protein 02/19/22 02/19/22 02/19/22 05:14 09:09 13:47 WBC RBC Hgb Hct MCV MCH MCHC RDW Plt Count MPV Immature Gran % (Auto) Neut % (Auto) Lymph % (Auto) [place] % (Auto) Eos % (Auto) Baso % (Auto) Lymph # (Auto) [place] # (Auto) Eos # (Auto) Baso # (Auto) Abs Immat Gran (auto) Absolute Neuts (auto) Absolute Nucleated RBC Nucleated RBC % (auto) PT 13.5 H INR 1.2 H APTT 26.7 VBG pH 7.45 H VBG pCO2 34 VBG pO2 42 VBG HCO3 24 VBG O2 Saturation 71.0 VBG Base Excess 0.6 Sodium Potassium Chloride Carbon Dioxide Anion Gap BUN Creatinine Estim Creat Clear Calc Estimated GFR Random Glucose Calcium Phosphorus Magnesium Albumin 25-OH Vitamin D Total CSF Tube Number 2 CSF Volume CSF Appearance CSF Color CSF WBC CSF RBC CSF Lymphocytes CSF Appearance (b) Clear, Colorless CSF Glucose 59 CSF Total Protein 66.0 H 02/19/22 02/19/22 13:47 13:47 WBC RBC Hgb Hct MCV MCH MCHC RDW Plt Count MPV Immature Gran % (Auto) Neut % (Auto) Lymph % (Auto) [place] % (Auto) Eos % (Auto) Baso % (Auto) Lymph # (Auto) [place] # (Auto) Eos # (Auto) Baso # (Auto) Abs Immat Gran (auto) Absolute Neuts (auto) Absolute Nucleated RBC Nucleated RBC % (auto) PT INR APTT VBG pH VBG pCO2 VBG pO2 VBG HCO3 VBG O2 Saturation VBG Base Excess Sodium Potassium Chloride Carbon Dioxide Anion Gap BUN Creatinine Estim Creat Clear Calc Estimated GFR Random Glucose Calcium Phosphorus Magnesium Albumin 25-OH Vitamin D Total CSF Tube Number 1 4 CSF Volume 2.0 2.0 CSF Appearance CLEAR CLEAR CSF Color COLORLESS COLORLESS CSF WBC 3 3 CSF RBC 10 6 CSF Lymphocytes 100 100 CSF Appearance (b) CSF Glucose CSF Total Protein Microbiology Microbiology Results: Microbiology 02/19/22 13:47 Cerebrospinal Fluid Gram Stain - Final 02/19/22 13:47 Cerebrospinal Fluid CSF Examination - Final 02/19/22 13:47 Cerebrospinal Fluid Fluid Description - Final 02/07/22 16:46 Blood - Venous Blood Culture - Final No growth after 5 days. 02/07/22 16:50 Blood - Venous Blood Culture - Final No growth after 5 days. 02/07/22 15:43 Urine clean catch - Urine chung top Urine Culture - Final Pseudomonas aeruginosa Enterococcus faecalis Quality Stroke Does the patient have a stroke diagnosis?: No VTE Prior VTE?: No VTE Risk Level:: Medical - moderate - high VTE Device Contraindication: Treatment Not Indicated VTE Drug Contraindication: N/A - Med Ordered
[2022-02-19] MEDS: Magnesium Sulfate/D5W 1 GM/100 ML PIGGYBACK IV (20:24)
--- NOTE | 2022-02-19 23:01 | PC.NURSE ---
TIFFANIE RODRIGUEZ CALLED AND NOTIFIED OF PATIENTS TRANSFER TO [facility]
--- NOTE | 2022-02-19 23:44 | PC.NURSE ---
Pt transferred out of ICU to room 483 on [facility] around 23:15 at which time I took over patient care. Pt awake with eyes open. Unresponsive and unable to follow commands. See charting for full assessment. TPN and lipids infusing as ordered. Suprapubic cath draining clear yellow urine to gravity. Bed alarm and camera on for patient safety. Will continue to monitor.
--- NOTE | 2022-02-20 | EEG_ITS ---
This is a 16-channel EEG with an EKG lead. The patient is reported unresponsive during the tracing. Background EEG rhythm is mostly in theta to delta range, medium amplitude, with intermittent right frontocentral sharp waves. This EEG is revealing somewhat less of the epileptic discharges noted before. Cardiac lead did not reveal any significant abnormality. 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 MD LALA Rai/HEDY / [id number]
[2022-02-20 03:22] VITALS: BP 149/75; PULSE 82; RESP 18; TEMP 37.1; O2SAT 98
[2022-02-20 03:30] VITALS: BMI 20.6
[2022-02-20] MEDS: levETIRAcetam 750 MG in 0.9 % Sodium Chloride 100 ML 430 MG IV ×2 (04:22→16:48)
[2022-02-20] MEDS: Fat Emulsions 20% 250 ML 20 ML IVCONT (06:07)
[2022-02-20 07:14] VITALS: BP 128/60; PULSE 80; RESP 20; TEMP 36.5; O2SAT 98
[2022-02-20] MEDS: 0.9 % Sodium Chloride Flush 3 ML SYRINGE IVFLUSH ×2 (09:16→16:38)
[2022-02-20] MEDS: cefEPime HCl 1 GM in 0.9 % Sodium Chloride 50 ML IV ×2 (09:16→16:38)
[2022-02-20] MEDS: Heparin Sodium,Porcine 5,000 UNIT/ML VIAL 5000 UNIT SUBCUT ×2 (09:16→21:57)
[2022-02-20 09:37] LABS: Mean Corpuscular HGB Conc 33.3 g/dl (31.0-36.0); Mean Corpuscular Hemoglobin 29.2 pg (27.0-33.0); Mean Corpuscular Volume 87.7 fL (80.0-98.0); Platelet Count 195 X10*3/uL (160-400); Red Blood Count 3.08 X10*6/uL (4.60-5.80); Red Cell Distribution Width 15.8 % (11.0-16.0); White Blood Count 4.5 X10*3/uL (4.8-10.8)
[2022-02-20 10:08] LABS: Alanine Aminotransferase 11 U/L (0-40); Albumin Level 3.3 g/dL (3.5-5.0); Alkaline Phosphatase 47 U/L (39-117); Anion Gap 9 (12-20); Aspartate Amino Transferase 17 U/L (5-37); Bilirubin Total 0.8 mg/dL (0.0-1.0); Blood Urea Nitrogen 28 mg/dL (9-16); Calcium 9.5 mg/dL (8.4-10.2); Carbon Dioxide 24 mmol/L (22-29); Chloride 112 mmol/L (96-108); Creatinine Clr Calc Pharmacy 46.3; Estimated Glomerular Filt Rate 57; Glucose Random 104 mg/dL (60-115); Magnesium 2.1 mg/dL (1.6-2.6); Phosphorus 3.1 mg/dL (2.7-4.5); Potassium 4.1 mmol/L (3.3-5.1); Sodium 141 mmol/L (135-145); Total Protein 6.7 g/dL (6.5-8.0)
--- NOTE | 2022-02-20 11:05 | PM.PNNEP ---
Subjective Subjective Date of Service: 02/26/22 Interval history: Event snoted Unable to give ROS Physical Exam Vital Signs: Vital Signs: Last Vital Signs Temp 97.7 F 02/20/22 07:14 Pulse 80 02/20/22 07:14 Resp 20 02/20/22 07:14 BP 128/60 02/20/22 07:14 Pulse Ox 98 02/20/22 07:14 O2 Del Method 02/20/22 07:14 BMI result Body Mass Index 20.6 Const: General: cooperative and comfortable Eyes: Conjunctivae: conjunctivae normal Neck: Neck: Yes no lymphadenopathy Resp: Effort & Inspection: no respiratory distress Auscultation: clear to auscultation bilaterally Cardio: Rate: regular rate GI: Other: Soft nontender nondistended normoactive bowel sounds. Suprapubic site clean dry intact however leaking urine around catheter Neuro: General: moves all extremities Objective Data Labs CBC & Chem 7: 02/22/22 07:49 02/26/22 07:56 Labs: Laboratory Results - last 24 hr 02/19/22 02/19/22 02/19/22 13:47 13:47 13:47 WBC RBC Hgb Hct MCV MCH MCHC RDW Plt Count MPV Absolute Nucleated RBC Nucleated RBC % (auto) Sodium Potassium Chloride Carbon Dioxide Anion Gap BUN Creatinine Estim Creat Clear Calc Estimated GFR Random Glucose Calcium Phosphorus Magnesium Total Bilirubin AST ALT Alkaline Phosphatase Total Protein Albumin CSF Tube Number 2 1 4 CSF Volume 2.0 2.0 CSF Appearance CLEAR CLEAR CSF Color COLORLESS COLORLESS CSF WBC 3 3 CSF RBC 10 6 CSF Lymphocytes 100 100 CSF Appearance (b) Clear, Colorless CSF Glucose 59 CSF Total Protein 66.0 H 02/20/22 02/20/22 09:25 09:25 WBC 4.5 L RBC 3.08 L Hgb 9.0 L Hct 27.0 L MCV 87.7 MCH 29.2 MCHC 33.3 RDW 15.8 Plt Count 195 MPV 9.0 L Absolute Nucleated RBC 0.000 Nucleated RBC % (auto) 0.0 Sodium 141 Potassium 4.1 Chloride 112 H Carbon Dioxide 24 Anion Gap 9 L BUN 28 H Creatinine 1.22 Estim Creat Clear Calc 46.3 Estimated GFR 57 Random Glucose 104 Calcium 9.5 Phosphorus 3.1 Magnesium 2.1 Total Bilirubin 0.8 AST 17 ALT 11 Alkaline Phosphatase 47 Total Protein 6.7 Albumin 3.3 L CSF Tube Number CSF Volume CSF Appearance CSF Color CSF WBC CSF RBC CSF Lymphocytes CSF Appearance (b) CSF Glucose CSF Total Protein Microbiology Microbiology Results: Microbiology 02/19/22 13:47 Cerebrospinal Fluid Gram Stain - Final 02/19/22 13:47 Cerebrospinal Fluid CSF Examination - Final 02/19/22 13:47 Cerebrospinal Fluid Fluid Description - Final 02/19/22 13:47 Cerebrospinal Fluid CSF Culture - Preliminary No growth after 1 day 02/07/22 16:46 Blood - Venous Blood Culture - Final No growth after 5 days. 02/07/22 16:50 Blood - Venous Blood Culture - Final No growth after 5 days. 02/07/22 15:43 Urine clean catch - Urine chung top Urine Culture - Final Pseudomonas aeruginosa Enterococcus faecalis Procedures Date of Service Date of Service: 02/20/22 Assessment & Plan Assessment and plan (1) ALETHEA (acute kidney injury): Status: Acute Plan 1. ALETHEA superimposed on CKD in a setting of Obstructive uropathy Currently has SPC Non oliguric Creatinine is trending down and close to baseline 2. Anemia Multifactorial 3.Hypercalcemia PTH suppressed - most likely to exogenic Ca/ supplementation SPEP - No MCGP in august 2021 PTH related peptide - pending Avoid all Ca/Vit D supplementation REPEAT Calcium back to normal 4. Dementia Psychiatry note appreciated Time Spent With Patient Time: Total time spent is greater than 50% in coordination of care (as documented) at patient's floor/unit and/or counseling patient: Progress Note: Quality Stroke Does the patient have a stroke diagnosis?: No
--- NOTE | 2022-02-20 11:13 | MHC.CLN ---
F/U PT IS MODERATELY MALNOURISHED SEE FULL CLINICAL NUTRITION ASSESSMENT DATED 02/19/22 PT TRANSFERRED BACK TO [facility] PT REMAINS NPO PT CURRENTLY RECEIVED PPN D10AA4.25 AT GOAL RATE 70ML/HR WITH 20ML OF 20% LIPIDS PROVIDES 1817 TOTAL KCALS (27KCALS/KG BASED ON ACTUAL), 71G PROTEIN (1.08G/KG) PER DR STEMP: Yesterday (02/18), a CVL was placed for TPN and access. CAN SWITCH TO TPN D15AA5 AT 70ML PER HR WITH 25ML OF 20% LIPIDS TO PROVIDE 1793KCALS, 84G PROTEIN (1.3G/KG) DISCUSSED WITH PHARMACY REPLETE LYTES NEEDED
[2022-02-20 11:17] VITALS: BP 110/58; PULSE 79; RESP 20; TEMP 36.4; O2SAT 99
--- NOTE | 2022-02-20 13:07 | P.CNNE_ITS ---
History of Present Illness Data of Consult Service Date: 02/20/22 Primary Care Provider: Obinna Moreau MD HPI Reason for consult: Encephalopathy 81 years old man who probably suffering from combination of septic ence phalopathy and encephalitis with unknown exact pathogen. He is being treated with acyclovir on top of antibiotics. His mental status has been fluctuating, sometimes somewhat better. There was no witnessing of obvious convulsion. 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 Mother No problems noted. Family history: reviewed and not pertinent Surgical History Surgical History History of surgery Social History Social History Household Members: Significant Other Housing: Condominium Do you presently have visiting nurse or other home services: Yes Alcohol intake: never Patient Tobacco Use Status: Never used Tobacco e-Cigarette/Vaping Use: Never Used Second Hand Smoke Exposure: No Advance Directives Date on File: 09/21/21 service: No Current occupational status: unemployed and retired Meds Allergies Allergy/AdvReac Type Severity Reaction Status Date / Time No Known Allergies Allergy Verified 10/25/21 08:15 Active Medications: Current Medications Artificial Tears (Artificial Tears 15 Ml Drops) 2 drop EYE-BOTH Q4H [facility] Heparin Sodium (Porcine) 50 (units/ Sodium Chloride 5 ml) 0 units IVFLUSH TID MIKKI Heparin Sodium (Porcine) (Heparin Sodium,Porcine 5,000 Unit/Ml Vial) 5,000 unit SUBCUT Q12H [facility] Last Admin: 02/20/22 09:16 Dose: 5,000 unit Cefepime HCl 1 gm/ Sodium (Chloride) 50 mls @ 100 mls/hr IV Q8H [facility] Last Infusion: 02/20/22 11:26 Dose: Infused Acyclovir Sodium 715 mg/ (Sodium Chloride) 264.3 mls @ 264.3 mls/hr IV Q12H [facility] Last Infusion: 02/20/22 11:29 Dose: Infused Levetiracetam 750 mg/ Sodium (Chloride) 107.5 mls @ 430 mls/hr IV Q12H [facility] Last Infusion: 02/20/22 04:37 Dose: Infused Magnesium Sulfate 10 meq/Potassium Phosphate 30 mmol/Calcium Gluconate 9.3 meq/Potassium Acetate 20 meq/Multivitamins 12 ml/ Trace Metals 1.2 ml/ Amino Acids/Electrolytes/Dextrose 1,680 mls @ 70 mls/hr IVCONT DAILY@1800 [facility] Stop: 02/20/22 17:59 Last Admin: 02/19/22 17:51 Dose: 70 mls/hr Fat Emulsion Intravenous (Intralipid) 240 mls @ 20 mls/hr IVCONT BID@0600,1800 [facility] Stop: 02/20/22 17:59 Last Admin: 02/20/22 06:07 Dose: 20 mls/hr Magnesium Sulfate 10 meq/Potassium Phosphate 30 mmol/Calcium Gluconate 9.3 meq/Potassium Acetate 20 meq/Multivitamins 12 ml/ Trace Metals 1.2 ml/ Amino Acids/Dextrose 1,680 mls @ 70 mls/hr IV DAILY@1800 [facility] Stop: 02/21/22 17:59 Fat Emulsion Intravenous (Intralipid) 150 mls @ 25 mls/hr IV DAILY@0000,1800 [facility] Stop: 02/21/22 05:59 Pharmacy Consult (Consult Rx Perform Med Rec) 1 each MISCELLANE ONCE PRN PRN Reason: Consult order Sodium Chloride (0.9 % Sodium Chloride Flush 3 Ml Syringe) 3 ml IVFLUSH QSHIFT [facility] Last Admin: 02/20/22 09:16 Dose: 3 ml Home Medications Medication Instructions Recorded Confirmed Last Taken Type aspirin 81 mg tablet,delayed 81 mg PO DAILY 12/12/21 02/07/22 02/07/22 History release lisinopril 5 mg tablet 5 mg PO DAILY 12/12/21 02/07/22 02/07/22 History rosuvastatin 10 mg tablet 1 tab PO BEDTIME 12/12/21 02/07/22 02/06/22 History ticagrelor 90 mg tablet 90 mg PO BID 12/12/21 02/07/2202/06/22 History Physical Exam Vital Signs: Vital Signs: Last Vital Signs Temp 97.6 F 02/20/22 11:17 Pulse 79 02/20/22 11:17 Resp 20 02/20/22 11:17 BP 110/58 L 02/20/22 11:17 Pulse Ox 99 02/20/22 11:17 O2 Del Method 02/20/22 11:17 BMI result Body Mass Index 20.6 Neuro: Other: He was very drowsy and did not respond to verbal commands. With pain he withdrew. He was grimacing mostly with left side of the face. Deep tendon reflexes were absent with flat plantars. There was no gaze deviation or jerking Results Labs CBC & Chem 7: 02/20/22 09:25 02/20/22 09:25 Labs: Short CBC 02/20/22 Range/Units 09:25 WBC 4.5 L (4.8-10.8) X10*3/uL Hgb 9.0 L (14.0-18.0) g/dl Hct 27.0 L (42.0-52.0) % Plt Count 195 (160-400) X10*3/uL BMP 02/20/22 09:25 Sodium 141 Potassium 4.1 Chloride 112 H Carbon Dioxide 24 BUN 28 H Creatinine 1.22 Calcium 9.5 Liver Function 02/20/22 Range/Units 09:25 Total Bilirubin 0.8 (0.0-1.0) mg/dL AST 17 (5-37) U/L ALT 11 (0-40) U/L Alkaline Phosphatase 47 (39-117) U/L Albumin 3.3 L (3.5-5.0) g/dL CSF protein was 66. Microbiology Microbiology Results: Microbiology 02/19/22 13:47 Cerebrospinal Fluid Gram Stain - Final 02/19/22 13:47 Cerebrospinal Fluid CSF Examination - Final 02/19/22 13:47 Cerebrospinal Fluid Fluid Description - Final 02/19/22 13:47 Cerebrospinal Fluid CSF Culture - Preliminary No growth after 1 day 02/07/22 16:46 Blood - Venous Blood Culture - Final No growth after 5 days. 02/07/22 16:50 Blood - Venous Blood Culture - Final No growth after 5 days. 02/07/22 15:43 Urine clean catch - Urine chung top Urine Culture - Final Pseudomonas aeruginosa Enterococcus faecalis Assessment and Plan (1) Non-convulsive status epilepticus: Status: Acute 81 years old man with encephalitis causing not convulsive status and encephalopathy. For now my recommendation is to send for CSF meningoencephalitis panel and that do an EEG to see if he was still seizing or not. I would continue antiepileptic and acyclovir until the panel is back. Procedures Date of Service Date of Service: 02/20/22
--- NOTE | 2022-02-20 14:31 | HO.PM.IMPN ---
Subjective Subjective Date of Service: 02/20/22 Interval History: still seems in partial status epilepticus Review of Systems unable to obtain Open eyes with tactile and verbal stimuli, otherwise somlonent Physical Exam Vital Signs: Vital Signs: Last Vital Signs Temp 97.6 F 02/20/22 11:17 Pulse 79 02/20/22 11:17 Resp 20 02/20/22 11:17 BP 110/58 L 02/20/22 11:17 Pulse Ox 99 02/20/22 11:17 O2 Del Method 02/20/22 11:17 BMI result Body Mass Index 20.6 Appearance: still same somlescent cvs: rrr, [id number]. res: air entry fair , no rales? or wheezin abd: no rebound or guarding ,nt, bs present. :Suprapubic site clean dry intact , Barry site is not leaking today ext pulses present , no cyanosis . neuro -unable to obtain Objective Data Active Medications Artificial Tears (Artificial Tears 15 Ml Drops) 2 drop EYE-BOTH Q4H [facility] Heparin Sodium (Porcine) 50 (units/ Sodium Chloride 5 ml) 0 units IVFLUSH TID MI[facility] Heparin Sodium (Porcine) (Heparin Sodium,Porcine 5,000 Unit/Ml Vial) 5,000 unit SUBCUT Q12H [facility] Last Admin: 02/20/22 09:16 Dose: 5,000 unit Documented By: JAMIE Cefepime HCl 1 gm/ Sodium (Chloride) 50 mls @ 100 mls/hr IV Q8H [facility] Last Infusion: 02/20/22 11:26 Dose: 0 mls/hr Documented By: JAMIE Acyclovir Sodium 715 mg/ (Sodium Chloride) 264.3 mls @ 264.3 mls/hr IV Q12H [facility] Last Infusion: 02/20/22 11:29 Dose: 0 mls/hr Documented By: JAMIE Levetiracetam 750 mg/ Sodium (Chloride) 107.5 mls @ 430 mls/hr IV Q12H [facility] Last Infusion: 02/20/22 04:37 Dose: 0 mls/hr Documented By: DOLLY Magnesium Sulfate 10 meq/Potassium Phosphate 30 mmol/Calcium Gluconate 9.3 meq/Potassium Acetate 20 meq/Multivitamins 12 ml/ Trace Metals 1.2 ml/ Amino Acids/Electrolytes/Dextrose 1,680 mls @ 70 mls/hr IVCONT DAILY@1800 [facility] Stop: 02/20/22 17:59 Last Admin: 02/19/22 17:51 Dose: 70 mls/hr Documented By: ARNALDO Fat Emulsion Intravenous (Intralipid) 240 mls @ 20 mls/hr IVCONT BID@0600,1800 [facility] Stop: 02/20/22 17:59 Last Admin: 02/20/22 06:07 Dose: 20 mls/hr Documented By: DOLLY Magnesium Sulfate 10 meq/Potassium Phosphate 30 mmol/Calcium Gluconate 9.3 meq/Potassium Acetate 20 meq/Multivitamins 12 ml/ Trace Metals 1.2 ml/ Amino Acids/Dextrose 1,680 mls @ 70 mls/hr IV DAILY@1800 [facility] Stop: 02/21/22 17:59 Fat Emulsion Intravenous (Intralipid) 150 mls @ 25 mls/hr IV DAILY@0000,1800 [facility] Stop: 02/21/22 05:59 Pharmacy Consult (Consult Rx Perform Med Rec) 1 each MISCELLANE ONCE PRN PRN Reason: Consult order Sodium Chloride (0.9 % Sodium Chloride Flush 3 Ml Syringe) 3 ml IVFLUSH QSHIFT [facility] Last Admin: 02/20/22 09:16 Dose: 3 ml Documented By: JAMIE Labs CBC & Chem 7: 02/20/22 09:25 02/20/22 09:25 Labs: Laboratory Results - last 24 hr 02/19/22 02/19/22 02/19/22 13:47 13:47 13:47 MCV MCH MCHC RDW Plt Count MPV Absolute Nucleated RBC Nucleated RBC % (auto) Anion Gap Estim Creat Clear Calc Estimated GFR Random Glucose Calcium Phosphorus Magnesium Total Bilirubin AST ALT Alkaline Phosphatase Total Protein Albumin CSF Tube Number 2 1 4 CSF Volume 2.0 2.0 CSF Appearance CLEAR CLEAR CSF Color COLORLESS COLORLESS CSF WBC 3 3 CSF RBC 10 6 CSF Lymphocytes 100 100 CSF Appearance (b) Clear, Colorless CSF Glucose 59 CSF Total Protein 66.0 H 02/20/22 02/20/22 09:25 09:25 MCV 87.7 MCH 29.2 MCHC 33.3 RDW 15.8 Plt Count 195 MPV 9.0 L Absolute Nucleated RBC 0.000 Nucleated RBC % (auto) 0.0 Anion Gap 9 L Estim Creat Clear Calc 46.3 Estimated GFR 57 Random Glucose 104 Calcium 9.5 Phosphorus 3.1 Magnesium 2.1 Total Bilirubin 0.8 AST 17 ALT 11 Alkaline Phosphatase 47 Total Protein 6.7 Albumin 3.3 L CSF Tube Number CSF Volume CSF Appearance CSF Color CSF WBC CSF RBC CSF Lymphocytes CSF Appearance (b) CSF Glucose CSF Total Protein Microbiology Microbiology Results: Microbiology 02/19/22 13:47 Gram Stain - Final Cerebrospinal Fluid CSF Examination - Final Fluid Description - Final CSF Culture - Preliminary No growth after 1 day Assessment and Plan (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 Review of chart demonstrates is similar to the last presentation of admission end of November. possible partial Status epilepticus?/? metabolic encephalopathy Hypercalcemia seems to be improved,CT head-negative except brain volume loss which more likely goes to a dementia,MRI neg,?LP -seems okexcept eleavted protein B12 and TSH normal eeg-possible status epilepticus, repeat eeg added , and encephalitis/meningitis panel added. moniter neurochecks ,tele Mental status seems same discussed with ICU opens eyes- discussed with neuro continue IV Keppra and acyclovir, repeat EEG added, masses sent to the demonstrator sewing techniques to complete. Nutrition via TPN.? ? Enteral feeds via Kafoeed/Dobhoff tube as per icu. UTI -Pseudomonas/VRE in urine cultures; urine VRE; Pseudomonas in blood -cefepime 1 g Q 24 hours; add Ampicillin for VRE s/p suprpubic cather change last week due to leakin . ALETHEA on CKD 3---improved with volume repletion -follow renals/divalents iD saw the patient-recomended cefepime for 14 days iD Followup ?Hypertension -improved with volume repletion -hold antihypertensives? add back when appropriate Coronary artery disease -2D echo 11/06 demonstrates an LVEF between 30 and 35% -cautious fluids hold? dual antiplatelet agents due ti can not take po. above is d/w neuro and iCU in detail-continue current management. inpatient need :possible partial Status epilepticus?/? metabolic encephalopathy-need IV antiepileptics and antiviral as well as cefepime, monitor neuro checks and telemetry. Need Neurology and Infectious Disease follow-up. Quality Stroke Does the patient have a stroke diagnosis?: No VTE Prior VTE?: No VTE Risk Level:: Medical - moderate - high VTE Device Contraindication: Treatment Not Indicated VTE Drug Contraindication: N/A - Med Ordered
--- NOTE | 2022-02-20 15:00 | PC.NURSE ---
Patient went down for an EEG at this time via bed with transport aid.
[2022-02-20 16:00] VITALS: BP 140/66; PULSE 74; RESP 17; TEMP 36.7; O2SAT 95
[2022-02-20] MEDS: Heparin Sodium,Porcine Flush 50 UNITS, 0.9 % Sodium Chloride Flush 5 ML IVFLUSH ×2 (16:38→21:54)
[2022-02-20 16:57] LABS: Cryptococcus neoformans/gattii Not Detected (Not Detect.); Enterovirus Not Detected (Not Detect.); Escherichia coli K1 Not Detected (Not Detect.); Haemophilus influenzae Not Detected (Not Detect.); Herpes simplex virus 1 Not Detected (Not Detect.); Herpes simplex virus 2 Not Detected (Not Detect.); Human herpesvirus 6 Not Detected (Not Detect.); Human parechovirus Not Detected (Not Detect.); Listeria monocytogenes Not Detected (Not Detect.); Neisseria meningitidis Not Detected (Not Detect.); Streptococcus agalactiae Not Detected (Not Detect.); Streptococcus pneumoniae Not Detected (Not Detect.)
[2022-02-20 16:58] LABS: Varicella zoster virus Not Detected (Not Detect.)
[2022-02-20] MEDS: Fat Emulsions 20% 250 ML 25 ML IV (18:11)
[2022-02-20 19:56] VITALS: BP 145/72; PULSE 69; RESP 17; TEMP 36.8; O2SAT 97
[2022-02-20 23:26] VITALS: BP 149/77; PULSE 76; RESP 18; TEMP 36.7; O2SAT 98
[2022-02-21] MEDS: 0.9 % Sodium Chloride Flush 3 ML SYRINGE IVFLUSH ×3 (00:44→16:10)
[2022-02-21] MEDS: cefEPime HCl 1 GM in 0.9 % Sodium Chloride 50 ML IV ×3 (00:44→16:08)
[2022-02-21] MEDS: Fat Emulsions 20% 250 ML 25 ML IV ×2 (00:45→17:58)
[2022-02-21 03:30] VITALS: BP 124/61; PULSE 77; RESP 18; TEMP 36.7; O2SAT 95
[2022-02-21] MEDS: levETIRAcetam 750 MG in 0.9 % Sodium Chloride 100 ML 430 MG IV (04:44)
[2022-02-21] MEDS: Artificial Tears 15 ML DROPS 2 DROP EYE-BOTH ×3 (04:49→21:36)
[2022-02-21 06:00] VITALS: BMI 20.7
[2022-02-21 08:00] VITALS: BP 137/74; PULSE 73; RESP 20; TEMP 36.7; O2SAT 97
[2022-02-21 08:08] LABS: Albumin Level 3.3 g/dL (3.5-5.0); Blood Urea Nitrogen 32 mg/dL (9-16); Calcium 9.5 mg/dL (8.4-10.2); Estimated Glomerular Filt Rate 53; Glucose Random 146 mg/dL (60-115); Magnesium 2.2 mg/dL (1.6-2.6); Phosphorus 2.8 mg/dL (2.7-4.5); Triglycerides 70 mg/dL
[2022-02-21 08:16] LABS: Anion Gap 10 (12-20); Carbon Dioxide 21 mmol/L (22-29); Chloride 111 mmol/L (96-108); Potassium 4.1 mmol/L (3.3-5.1); Sodium 138 mmol/L (135-145)
[2022-02-21] MEDS: Heparin Sodium,Porcine 5,000 UNIT/ML VIAL 5000 UNIT SUBCUT ×2 (08:19→21:35)
[2022-02-21] MEDS: Heparin Sodium,Porcine Flush 50 UNITS, 0.9 % Sodium Chloride Flush 5 ML IVFLUSH ×3 (08:19→21:35)
--- NOTE | 2022-02-21 10:02 | MHC.CLN ---
F/U REVIEWED LABS PT RECEIVED TPN D15AA5 AT 70ML PER HR WITH 25ML OF 20% LIPIDS PROVIDED 1793KCALS (27KCALS/KG), 84G PROTEIN (1.3G/KG) DISCUSSED WITH PHARMACY CONTINUE CURRENT FORMULA REPLETE LYTES NEEDED CONSULT RD IF NG TUBE PLACED FOR FEEDING
[2022-02-21 11:10] VITALS: BP 110/62; PULSE 70; RESP 20; TEMP 36.2; O2SAT 97
--- NOTE | 2022-02-21 13:52 | MHC.CM.PN ---
Per MD rounds, Patient is not ready for discharge. He is lethargic. A repeat EEG is ordered for . [facility], via S. A clinical update has been sent.
[2022-02-21 14:44] LABS: Calcium, Ionized 5.8 mg/dL (4.8-5.6)
[2022-02-21 15:02] VITALS: BP 141/75; PULSE 72; RESP 16; TEMP 36.6; O2SAT 98
--- NOTE | 2022-02-21 16:53 | P.PNIM_ITS ---
Subjective Subjective Date of Service: 02/21/22 Interval History: Seen in follow up for epilepsy encephalopathy still seems in partial status epilepticus, unresponsive except for opening eyes with tactile and verbal stimuli Review of Systems Review of Systems: Yes Unobtainable due to mental condition Physical Exam Vital Signs: Vital Signs: Last Vital Signs Temp 97.8 F 02/21/22 15:02 Pulse 72 02/21/22 15:02 Resp 16 02/21/22 15:02 BP 141/75 H 02/21/22 15:02 Pulse Ox 98 02/21/22 15:02 O2 Del Method 02/21/22 15:02 BMI result Body Mass Index 20.7 Appearance: still same somlescent cvs: rrr, [id number]. res: CTA bilaterally, no respiratory distress abd: no rebound or guarding ,nt, bs present. : Suprapubic site clean dry intact , Barry site is not leaking today ext: no calf tenderness bilaterally, no swelling neuro - patient unable to participate in exam secondary to mental status Objective Data Active Medications Artificial Tears (Artificial Tears 15 Ml Drops) 2 drop EYE-BOTH Q4H [facility] Last Admin: 02/21/22 16:09 Dose: Not Given Documented By: AMIRA Non-Admin Reason: Patient Asleep Heparin Sodium (Porcine) 50 (units/ Sodium Chloride 5 ml) 0 units IVFLUSH TID [facility] Last Admin: 02/21/22 16:04 Dose: 50 unit Documented By: AMIRA Heparin Sodium (Porcine) (Heparin Sodium,Porcine 5,000 Unit/Ml Vial) 5,000 unit SUBCUT Q12H [facility] Last Admin: 02/21/22 08:19 Dose: 5,000 unit Documented By: AMIRA Cefepime HCl 1 gm/ Sodium (Chloride) 50 mls @ 100 mls/hr IV Q8H [facility] Last Infusion: 02/21/22 16:46 Dose: 0 mls/hr Documented By: AMIRA Levetiracetam 750 mg/ Sodium (Chloride) 107.5 mls @ 430 mls/hr IV Q12H [facility] Last Infusion: 02/21/22 05:35 Dose: 0 mls/hr Documented By: LUIS M Magnesium Sulfate 10 meq/Potassium Phosphate 30 mmol/Calcium Gluconate 9.3 meq/Potassium Acetate 20 meq/Multivitamins 12 ml/ Trace Metals 1.2 ml/ Amino Acids/Dextrose 1,680 mls @ 70 mls/hr IV DAILY@1800 [facility] Stop: 02/21/22 17:59 Last Admin: 02/20/22 18:16 Dose: 70 mls/hr Documented By: JAMIE Acyclovir Sodium 715 mg/ (Sodium Chloride) 264.3 mls @ 264.3 mls/hr IV Q12H [facility] Last Infusion: 02/21/22 12:42 Dose: 0 mls/hr Documented By: AMIRA Magnesium Sulfate 10 meq/Potassium Phosphate 30 mmol/Calcium Gluconate 9.3 meq/Sodium Acetate 20 meq/Potassium Acetate 20 meq/Multivitamins 12 ml/ Trace Metals 1.2 ml/ Amino Acids/Dextrose 1,680 mls @ 70 mls/hr IV DAILY@1800 [facility] Stop: 02/22/22 17:59 Fat Emulsion Intravenous (Intralipid) 150 mls @ 25 mls/hr IV DAILY@1800 [facility] Stop: 02/21/22 23:59 Fat Emulsion Intravenous (Intralipid) 150 mls @ 25 mls/hr IV DAILY@0000 [facility] Stop: 02/22/22 05:59 Pharmacy Consult (Consult Rx Perform Med Rec) 1 each MISCELLANE ONCE PRN PRN Reason: Consult order Sodium Chloride (0.9 % Sodium Chloride Flush 3 Ml Syringe) 3 ml IVFLUSH QSHIFT [facility] Last Admin: 02/21/22 16:10 Dose: 3 ml Documented By: AMIRA Labs CBC & Chem 7: 02/20/22 09:25 02/21/22 07:34 Labs: Laboratory Results - last 24 hr 02/19/22 02/20/22 02/21/22 13:47 09:25 07:34 Anion Gap 10 L Estim Creat Clear Calc 44.0 Estimated GFR 53 Random Glucose 146 H Calcium 9.5 Ionized Calcium 5.8 H Phosphorus 2.8 Magnesium 2.2 Albumin 3.3 L Triglycerides 70 CSF C.neoform/gat PCR Not Detected CSF CMV DNA (PCR) Not Detected CSF Enterovirus (PCR) Not Detected CSF E. coli K1 (PCR) Not Detected CSF H. influenzae (PCR) Not Detected CSF HSV I (PCR) Not Detected CSF HSV II (PCR) Not Detected CSF HHV 6 (PCR) Not Detected CSF L.monocytogenes PCR Not Detected CSF N. meningitidis PCR Not Detected CSF Parechovirus (PCR) Not Detected CSF S. agalactiae (PCR) Not Detected CSF S. 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 Review of chart demonstrates is similar to the last presentation of admission end of November. possible partial Status epilepticus?/? metabolic encephalopathy Hypercalcemia seems to be improved,CT head-negative except brain volume loss which more likely goes to a dementia,MRI neg,?LP -seems okexcept eleavted protein B12 and TSH normal eeg-possible status epilepticus, repeat eeg added , and encephalitis/meningitis panel added. moniter neurochecks ,tele Mental status seems same discussed with ICU opens eyes- discussed with neuro continue IV Keppra and acyclovir, repeat EEG added, masses sent to the process control technician to complete. Nutrition via TPN.?Nutrition following Increase keppra to 1000mg BID per neuro and repeat EEG tomorrow UTI -Pseudomonas/VRE in urine cultures; urine VRE; Pseudomonas in blood s/p suprpubic cather change last week due to leaking . ALETHEA on CKD 3---improved with volume repletion -follow renals/divalents iD saw the patient-recomended cefepime for 14 days (D7) (was initially also on ampicillin- dc/d) iD Followup ?Hypertension -improved with volume repletion -hold antihypertensives? add back when appropriate Coronary artery disease -2D echo 11/06 demonstrates an LVEF between 30 and 35% -cautious fluids hold? dual antiplatelet agents due ti can not take po. above is d/w neuro and iCU in detail-continue current management. DVT proph- heparin Full code inpatient need :possible partial Status epilepticus?/? metabolic encephalopathy- need IV antiepileptics and antiviral as well as cefepime, monitor neuro checks and telemetry. Need Neurology and Infectious Disease follow-up. Quality Stroke Does the patient have a stroke diagnosis?: No VTE Prior VTE?: No VTE Risk Level:: Medical - moderate - high VTE Device Contraindication: Treatment Not Indicated VTE Drug Contraindication: N/A - Med Ordered
[2022-02-21] MEDS: levETIRAcetam in NaCl (iso-os) 1,000 MG/100 ML PIGGYBACK 400 MG IV (17:28)
[2022-02-21 18:50] VITALS: BP 171/78; PULSE 82; RESP 15; TEMP 36.6; O2SAT 98
[2022-02-21 23:24] VITALS: BP 147/71; PULSE 95; RESP 16; TEMP 36.6; O2SAT 97
--- NOTE | 2022-02-22 | EEG_ITS ---
This is a 16-channel EEG with an EKG lead. The patient is reported unresponsive during the tracing. Background EEG rhythm is slow and theta to delta range, low amplitude with no obvious asymmetry, paroxysmal tendency, or focal activity. Cardiac lead does not reveal any significant abnormality. IMPRESSION: Generalized slowing with no evidence of seizure disorder at this age. MD LALA Rai/HEDY / [phone]
[2022-02-22] MEDS: Artificial Tears 15 ML DROPS 2 DROP EYE-BOTH ×3 (00:20→21:25)
[2022-02-22] MEDS: 0.9 % Sodium Chloride Flush 3 ML SYRINGE IVFLUSH ×4 (00:21→21:16)
[2022-02-22] MEDS: cefEPime HCl 1 GM in 0.9 % Sodium Chloride 50 ML IV ×3 (00:36→16:20)
[2022-02-22] MEDS: Fat Emulsions 20% 250 ML 25 ML IV ×2 (00:37→21:15)
[2022-02-22 03:14] VITALS: BP 165/89; PULSE 103; RESP 17; TEMP 36.8; O2SAT 95
[2022-02-22] MEDS: levETIRAcetam in NaCl (iso-os) 1,000 MG/100 ML PIGGYBACK 400 MG IV ×2 (04:37→16:19)
[2022-02-22 06:00] VITALS: BMI 20.5
[2022-02-22 07:22] VITALS: BP 156/83; PULSE 98; RESP 18; TEMP 36.3; O2SAT 96
[2022-02-22 08:08] LABS: MANUAL DIFF FLAG NO
[2022-02-22 08:11] LABS: Basophils Percent Auto 0.3 % (0-2); Eosinophils Absolute Auto 0.3 X10*3/uL (0.0-0.4); Eosinophils Percent Auto 5.2 % (0-4); Hematocrit 29.2 % (42.0-52.0); Hemoglobin 9.8 g/dl (14.0-18.0); Imm Gran Abs Auto 0.03 X10*3/uL (0.00-0.03); Imm Gran Pct Auto 0.5 % (0.0-0.4); Lymphocytes Absolute Auto 0.7 X10*3/uL (1.2-4.9); Lymphocytes Percent Auto 12.2 % (20-40); Mean Corpuscular HGB Conc 33.6 g/dl (31.0-36.0); Mean Corpuscular Hemoglobin 29.1 pg (27.0-33.0); Mean Corpuscular Volume 86.6 fL (80.0-98.0); Mean Platelet Volume 9.5 fL (9.4-12.4); Monocytes Absolute Auto 0.7 X10*3/uL (0.1-1.2); Monocytes Percent Auto 11.6 % (2-11); Neutrophils Absolute Auto 4.1 x10*3/uL (2.0-8.3); Neutrophils Percent Auto 70.2 % (45-73); Platelet Count 201 X10*3/uL (160-400); Red Blood Count 3.37 X10*6/uL (4.60-5.80); Red Cell Distribution Width 16.4 % (11.0-16.0); White Blood Count 5.8 X10*3/uL (4.8-10.8)
[2022-02-22 08:30] LABS: Anion Gap 10 (12-20); Blood Urea Nitrogen 36 mg/dL (9-16); Calcium 9.6 mg/dL (8.4-10.2); Carbon Dioxide 19 mmol/L (22-29); Chloride 112 mmol/L (96-108); Creatinine Clr Calc Pharmacy 45.8; Estimated Glomerular Filt Rate 56; Glucose Random 172 mg/dL (60-115); Potassium 4.6 mmol/L (3.3-5.1); Sodium 136 mmol/L (135-145)
[2022-02-22 08:52] LABS: Magnesium 2.2 mg/dL (1.6-2.6); Phosphorus 2.4 mg/dL (2.7-4.5)
[2022-02-22] MEDS: Heparin Sodium,Porcine Flush 50 UNITS, 0.9 % Sodium Chloride Flush 5 ML IVFLUSH ×3 (10:29→21:15)
[2022-02-22] MEDS: Heparin Sodium,Porcine 5,000 UNIT/ML VIAL 5000 UNIT SUBCUT ×2 (10:30→21:15)
[2022-02-22 11:17] VITALS: BP 107/57; PULSE 85; RESP 20; TEMP 36.2; O2SAT 97
--- NOTE | 2022-02-22 14:18 | HO.PM.IMPN ---
Subjective Subjective Date of Service: 02/22/22 Interval History: Seen in follow up for epilepsy encephalopathy ICU stepdown 02/19. No events reported over night. still seems in partial status epilepticus, unresponsive except for opening eyes with tactile and verbal stimuli. Partner at bedside. Review of Systems Review of Systems: Yes Unobtainable due to mental condition Physical Exam Vital Signs: Vital Signs: Last Vital Signs Temp 97.2 F 02/22/22 11:17 Pulse 85 02/22/22 11:17 Resp 20 02/22/22 11:17 BP 107/57 L 02/22/22 11:17 Pulse Ox 97 02/22/22 11:17 O2 Del Method 02/22/22 11:17 BMI result Body Mass Index 20.5 Constitutional - Awake and Alert, No apparent distress Cardiovascular - S1S2, RRR, No edema Respiratory - Normal lung expansion, Normal respiratory effort, No respiratory distress, CTA bilaterally : suprapubic catheter in place without leakage draining clear/yellow urine Gastrointestinal - NT / ND; +BS; No rebound or guarding Extremities - no calf tenderness bilaterally, no swelling Skin - Warm/Dry Neurological - Unresponsive, but PERRLA, Unable to fully assess. Recoils with tactile stimulation plantar surface, downgoing babinski, 2+ left patellar reflex, absent right patellar reflex. Right sided facial droop Objective Data Active Medications Artificial Tears (Artificial Tears 15 Ml Drops) 2 drop EYE-BOTH Q4H [facility] Last Admin: 02/22/22 11:20 Dose: Not Given Documented By: AMIRA Non-Admin Reason: Patient Asleep Heparin Sodium (Porcine) 50 (units/ Sodium Chloride 5 ml) 0 units IVFLUSH TID [facility] Last Admin: 02/22/22 10:29 Dose: 50 unit Documented By: AMIRA Heparin Sodium (Porcine) (Heparin Sodium,Porcine 5,000 Unit/Ml Vial) 5,000 unit SUBCUT Q12H [facility] Last Admin: 02/22/22 10:30 Dose: 5,000 unit Documented By: AMIRA Cefepime HCl 1 gm/ Sodium (Chloride) 50 mls @ 100 mls/hr IV Q8H [facility] Last Infusion: 02/22/22 11:08 Dose: 0 mls/hr Documented By: AMIRA Acyclovir Sodium 715 mg/ (Sodium Chloride) 264.3 mls @ 264.3 mls/hr IV Q12H [facility] Last Infusion: 02/22/22 12:28 Dose: 0 mls/hr Documented By: AMIRA Magnesium Sulfate 10 meq/Potassium Phosphate 30 mmol/Calcium Gluconate 9.3 meq/Sodium Acetate 20 meq/Potassium Acetate 20 meq/Multivitamins 12 ml/ Trace Metals 1.2 ml/ Amino Acids/Dextrose 1,680 mls @ 70 mls/hr IV DAILY@1800 [facility] Stop: 02/22/22 17:59 Last Admin: 02/21/22 17:49 Dose: 70 mls/hr Documented By: AMIRA Levetiracetam (Keppra) 1,000 mg in 100 mls @ 400 mls/hr IV Q12H [facility] Last Infusion: 02/22/22 05:37 Dose: 0 mls/hr Documented By: CIRO Magnesium Sulfate 10 meq/Potassium Phosphate 30 mmol/Calcium Gluconate 9.3 meq/Sodium Acetate 40 meq/ Sodium Phosphate 20 mmol/Multivitamins 12 ml/ Trace Metals 1.2 ml/ Amino Acids/Dextrose 1,680 mls @ 70 mls/hr IV DAILY@1800 [facility] Stop: 02/23/22 17:59 Fat Emulsion Intravenous (Intralipid) 150 mls @ 25 mls/hr IV DAILY@0000,1800 [facility] Stop: 02/23/22 05:59 Pharmacy Consult (Consult Rx Perform Med Rec) 1 each MISCELLANE ONCE PRN PRN Reason: Consult order Sodium Chloride (0.9 % Sodium Chloride Flush 3 Ml Syringe) 3 ml IVFLUSH QSHIFT [facility] Last Admin: 02/22/22 10:30 Dose: 3 ml Documented By: AMIRA Labs CBC & Chem 7: 02/22/22 07:49 02/22/22 07:49 Labs: Laboratory Results - last 24 hr 02/20/22 02/22/22 02/22/22 09:25 07:49 07:49 MCV 86.6 MCH 29.1 MCHC 33.6 RDW 16.4 H Plt Count 201 MPV 9.5 Immature Gran % (Auto) 0.5 H Neut % (Auto) 70.2 Lymph % (Auto) 12.2 L Mckean % (Auto) 11.6 H Eos % (Auto) 5.2 H Baso % (Auto) 0.3 Lymph # (Auto) 0.7 L Mckean # (Auto) 0.7 Eos # (Auto) 0.3 Baso # (Auto) 0.0 Abs Immat Gran (auto) 0.03 Absolute Neuts (auto) 4.1 Absolute Nucleated RBC 0.000 Nucleated RBC % (auto) 0.0 Anion Gap 10 L Estim Creat Clear Calc 45.8 Estimated GFR 56 Random Glucose 172 H Calcium 9.6 Ionized Calcium 5.8 H Phosphorus 2.4 L Magnesium 2.2 Microbiology Microbiology Results: Microbiology 02/19/22 13:47 Gram Stain - Final Cerebrospinal Fluid CSF Examination - Final Fluid Description - Final CSF Culture - Final No growth after 3 days. 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 Review of chart demonstrates is similar to the last presentation of admission end of November. #possible partial Status epilepticus?/epilectic encephalopathy Hypercalcemia resolved CT head-negative except brain volume loss which more likely goes to a dementia,MRI neg 02/17,? LP -seems ok except mildly eleavted protein, meningitis panel negative B12 and TSH normal eeg-possible status epilepticus, eeg repeated 2 days ago with similar findings, repeated again today per neuro results pending Continue IV keppra 1000mg BID and acyclovir per neuro moniter neurochecks ,tele -Nutrition via TPN.?Nutrition following -Appreciate neuro input #Right sided facial droop -initially noted 1235 today by nursing and observed on exam -Stat head CT ordered, results discussed with radiology. No acute stroke -?Lyle's paralysis -Call placed to neurology #UTI -Pseudomonas/VRE in urine cultures; urine VRE; Pseudomonas in blood -/p suprpubic cather change last week due to leaking -ALETHEA resolved -follow renals/divalents iD saw the patient-recomended cefepime for 14 days (D8) (was initially also on ampicillin- dc/d) iD Followup #bacteremia secondary to UTI -Initial blood cultures showing pseudomas/enterococcus -Continue abx as above -Repeat cultures negative ?Hypertension- bp soft -improved with volume repletion -hold antihypertensives? add back when appropriate Coronary artery disease -2D echo 11/06 demonstrates an LVEF between 30 and 35% -cautious fluids hold? dual antiplatelet agents due ti can not take po. above is d/w neuro and iCU in detail-continue current management. DVT proph- heparin Full code inpatient need :possible partial Status epilepticus?/? metabolic encephalopathy-need IV antiepileptics and antiviral as well as cefepime, monitor neuro checks and telemetry. Need Neurology and Infectious Disease follow-up. Quality Stroke Does the patient have a stroke diagnosis?: No VTE Prior VTE?: No VTE Risk Level:: Medical - moderate - high VTE Device Contraindication: Treatment Not Indicated VTE Drug Contraindication: N/A - Med Ordered
[2022-02-22 15:41] VITALS: BP 131/72; PULSE 90; RESP 20; TEMP 36.6; O2SAT 99
[2022-02-22] MEDS: methylPREDNISolone Sod Succ 1,000 MG in 0.9 % Sodium Chloride 50 ML 66 MG IV (17:28)
[2022-02-22] MEDS: levETIRAcetam in NaCl (iso-os) 500 MG/100 ML PIGGYBACK 400 MG IV (17:47)
[2022-02-22 19:16] VITALS: BP 129/64; PULSE 67; RESP 20; TEMP 36.2; O2SAT 98
[2022-02-23] VITALS (7 sets, daily range): BP systolic 136–188; BP diastolic 70–93; PULSE 68–99; RESP 14–19; TEMP 36.6–37.3; O2SAT 90–98; BMI 20.5
[2022-02-23] MEDS: cefEPime HCl 1 GM in 0.9 % Sodium Chloride 50 ML IV ×4 (00:15→23:53)
[2022-02-23] MEDS: levETIRAcetam in NaCl (iso-os) 1,000 MG/100 ML PIGGYBACK 400 MG IV ×2 (04:06→17:04)
[2022-02-23] MEDS: Fat Emulsions 20% 250 ML 25 ML IV ×3 (06:20→23:47)
[2022-02-23] MEDS: Artificial Tears 15 ML DROPS 2 DROP EYE-BOTH ×4 (06:21→23:45)
[2022-02-23] MEDS: Heparin Sodium,Porcine 5,000 UNIT/ML VIAL 5000 UNIT SUBCUT ×2 (08:54→20:55)
[2022-02-23] MEDS: 0.9 % Sodium Chloride Flush 3 ML SYRINGE IVFLUSH ×2 (08:54→23:44)
[2022-02-23] MEDS: Heparin Sodium,Porcine Flush 50 UNITS, 0.9 % Sodium Chloride Flush 5 ML IVFLUSH (08:54)
--- NOTE | 2022-02-23 10:42 | MHC.CLN ---
F/U LABS PENDING PT RECEIVED TPN [id number] AT 70ML PER HR WITH 25ML OF 20% LIPIDS PROVIDES 1793KCALS (27KCALS/KG), 84G PROTEIN (1.3G/KG) DISCUSSED WITH PHARMACY CONTINUE CURRENT FORMULA REPLETE LYTES NEEDED FOLLOWING WITH TEAM
--- NOTE | 2022-02-23 11:24 | P.PNIM_ITS ---
Subjective Subjective Date of Service: 02/23/22 <ILSA Aguilera - Last Filed: 02/23/22 17:33> 03/04/22 <Toni Garcia MD - Last Filed: 03/04/22 08:39> Interval History: Seen in follow up for epilepsy encephalopathy ICU stepdown 02/19. No events reported over night. Given 1g solumedrol last night with minimal improvement in responsiveness. Continues with opening of the eyes with verbal and tactile stimulation with very slight independent movements and movements on command. Pt hiccuping, yawning, and coughing occassionally. <LISA Aguilera - Last Filed: 02/23/22 17:33> Review of Systems Review of Systems: Yes Unobtainable due to mental condition <LISA Aguilera - Last Filed: 02/23/22 17:33> Physical Exam Vital Signs: Vital Signs: Last Vital Signs Temp 98.1 F 02/23/22 08:00 Pulse 99 02/23/22 08:00 Resp 14 02/23/22 08:00 BP 136/73 02/23/22 08:00 Pulse Ox 96 02/23/22 08:00 O2 Del Method 02/23/22 08:00 BMI result Body Mass Index 20.5 <LISA Aguilera - Last Filed: 02/23/22 17:33> Constitutional - Awake and Alert, No apparent distress Cardiovascular - S1S2, RRR, No edema Respiratory - Normal lung expansion, Normal respiratory effort, No respiratory distress, CTA bilaterally : suprapubic catheter in place without leakage draining clear/yellow urine Gastrointestinal - NT / ND; +BS; No rebound or guarding Extremities - no calf tenderness bilaterally, no swelling Skin - Warm/Dry Neurological - PERRLA, Unable to fully assess CN function. Independently moving hands, with very slight squeeze on command. Recoils with tactile stimulation plantar surface, downgoing babinski, 2+ left patellar reflex, absent right patellar reflex. No facial droop <LISA Aguilera - Last Filed: 02/23/22 17:33> Objective Data Active Medications Artificial Tears (Artificial Tears 15 Ml Drops) 2 drop EYE-BOTH Q4H [facility] Last Admin: 02/23/22 06:21 Dose: 2 drop Documented By: LANIE Heparin Sodium (Porcine) 50 (units/ Sodium Chloride 5 ml) 0 units IVFLUSH TID [facility] Last Admin: 02/23/22 08:54 Dose: 50 unit Documented By: DUANE Heparin Sodium (Porcine) (Heparin Sodium,Porcine 5,000 Unit/Ml Vial) 5,000 unit SUBCUT Q12H [facility] Last Admin: 02/23/22 08:54 Dose: 5,000 unit Documented By: DUANE Cefepime HCl 1 gm/ Sodium (Chloride) 50 mls @ 100 mls/hr IV Q8H [facility] Last Infusion: 02/23/22 10:49 Dose: 0 mls/hr Documented By: DUANE Levetiracetam (Keppra) 1,000 mg in 100 mls @ 400 mls/hr IV Q12H [facility] Last Infusion: 02/23/22 04:44 Dose: 0 mls/hr Documented By: LUANNOIC Magnesium Sulfate 10 meq/Potassium Phosphate 30 mmol/Calcium Gluconate 9.3 meq/Sodium Acetate 40 meq/ Sodium Phosphate 20 mmol/Multivitamins 12 ml/ Trace Metals 1.2 ml/ Amino Acids/Dextrose 1,680 mls @ 70 mls/hr IV DAILY@1800 [facility] Stop: 02/23/22 17:59 Last Admin: 02/22/22 21:14 Dose: 70 mls/hr Documented By: LANIE Pharmacy Consult (Consult Rx Perform Med Rec) 1 each MISCELLANE ONCE PRN PRN Reason: Consult order Sodium Chloride (0.9 % Sodium Chloride Flush 3 Ml Syringe) 3 ml IVFLUSH QSHIFT [facility] Last Admin: 02/23/22 08:54 Dose: 3 ml Documented By: DUANE <LISA Aguilera - Last Filed: 02/23/22 17:33> Labs CBC & Chem 7: : 03/03/22 08:20 03/04/22 05:47 <LISA Aguilera - Last Filed: 02/23/22 17:33> Microbiology Microbiology Results: Microbiology 02/19/22 13:47 Gram Stain - Final Cerebrospinal Fluid CSF Examination - Final Fluid Description - Final CSF Culture - Final No growth after 3 days. 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 Review of chart demonstrates is similar to the last presentation of admission end of November. Now with persistent epilectic encephalopathy #epilectic encephalopathy Hypercalcemia resolved CT head-negative except brain volume loss which more likely goes to a dementia,MRI neg 02/17,? LP -seems ok except mildly eleavted protein, meningitis panel negative B12 and TSH normal eeg-possible status epilepticus, eeg repeated 2 days ago with similar findings, repeated 02/22 with mild slowing but no evidence of seizure Continue IV keppra 1000mg BID. Addl one time dose 500mg given per neurology 02/22. DC acyclovir 1g Solumedrol for steroid challenge per neuro with minimal improvement in responsivenss. Pt now with mildly increased tone, slight hand squeeze on command, voluntary extremity movements Discussed with neuro, possible lag in recovery from epilectic encephalopathy which has been treated. Observe and continue tx as above for addl 2 days. consid er hospice moniter neurochecks ,tele -Nutrition via TPN.?Nutrition following -Central line d/c'd. PICC line placed -Appreciate neuro input #Right sided facial droop- resolved -initially noted 1235 today by nursing and observed on exam -Stat head CT ordered, results discussed with radiology. 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 add back when appropriate Coronary artery disease -2D echo 11/06 demonstrates an LVEF between 30 and 35% -cautious fluids hold? dual antiplatelet agents due ti can not take po. above is d/w neuro and iCU in detail-continue current management. DVT proph- heparin Full code. Dispo- given pt presentation and lack of improvement following treatment for epileptic encephalopathy with anti-epileptics as well as steroid challenge, should consider hospice if no improvements in responsiveness after another 2 days after discussion with neuro. Will discuss hospice and code status with . inpatient need :possible partial Status epilepticus?/? metabolic encephalopathy- need IV antiepileptics and antiviral as well as cefepime, monitor neuro checks and telemetry. Need Neurology and Infectious Disease follow-up. <LISA Aguilera - Last Filed: 02/23/22 17:33> Quality Stroke Does the patient have a stroke diagnosis?: No <LISA Aguilera - Last Filed: 02/23/22 17:33> VTE Prior VTE?: No <LISA Aguilera - Last Filed: 02/23/22 17:33> VTE Risk Level:: Medical - moderate - high <LISA Aguilera - Last Filed: 02/23/22 17:33> VTE Device Contraindication: Treatment Not Indicated <LISA Aguilera - Last Filed: 02/23/22 17:33> VTE Drug Contraindication: N/A - Med Ordered <LISA Aguilera - Last Filed: 02/23/22 17:33>
--- NOTE | 2022-02-23 11:50 | HO.PICC ---
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 Following completion of [place] Protocol the skin and soft tissues were anesthetized with 1% Lidocaine plain. Using ultrasound guidance, Left basilic vein access was obtained in a second attempt by this RN. Over an 0.018 wire through peel-away sheath, a PICC line was positioned. Catheter length is 44 cm internal length, 0 cm external length, for a total trimmed length of 44 cm. The procedure was performed in S272. Tip verification was performed by Renée Andujar with Gabo 3CG. Tip located in SVC. Ultrasound was used to document vein patency and for needle entry. A formal ultrasound picture (was not recorded but the site and size was verified by Frank Reno and this RN and cardiac rhythm strip was recorded. Vascular Art Psychotherapist Or Therapist has released the line for use and it is currently dressed with a StatLock, Tegaderm, and CHG disc. Verification has been performed for blood return and line patency. Arm Circumference: 28 cm Equipment: Bard Triple lumen PowerPICC Solo Catheter Type: 5 [place] triple lumen PASV PICC Lot #: [id number]
[2022-02-23 13:31] LABS: Albumin Level 3.4 g/dL (3.5-5.0); Anion Gap 10 (12-20); Blood Urea Nitrogen 49 mg/dL (9-16); Calcium 9.8 mg/dL (8.4-10.2); Carbon Dioxide 20 mmol/L (22-29); Chloride 112 mmol/L (96-108); Estimated Glomerular Filt Rate 50; Glucose Random 165 mg/dL (60-115); Magnesium 2.4 mg/dL (1.6-2.6); Phosphorus 3.3 mg/dL (2.7-4.5); Potassium 4.3 mmol/L (3.3-5.1); Sodium 138 mmol/L (135-145)
--- NOTE | 2022-02-23 15:22 | MHC.CM.PN ---
Per MD rounds no dc today. The PA stated that she would speak with the pts about goals of care. Patient has a bed at [facility] at discharge. He will transport via S.
[2022-02-23] MEDS: 0.9 % Sodium Chloride Flush 10 ML SYRINGE 5 ML IVFLUSH (20:52)
[2022-02-24 03:27] VITALS: BP 151/73; PULSE 79; RESP 19; TEMP 37; O2SAT 97
[2022-02-24] MEDS: levETIRAcetam in NaCl (iso-os) 1,000 MG/100 ML PIGGYBACK 400 MG IV ×2 (04:33→17:05)
[2022-02-24] MEDS: Artificial Tears 15 ML DROPS 2 DROP EYE-BOTH ×5 (04:33→19:59)
[2022-02-24 04:55] VITALS: BMI 20.8
[2022-02-24 06:59] LABS: Alanine Aminotransferase 8 U/L (0-40); Albumin Level 3.2 g/dL (3.5-5.0); Alkaline Phosphatase 48 U/L (39-117); Anion Gap 13 (12-20); Aspartate Amino Transferase 12 U/L (5-37); Bilirubin Total 0.5 mg/dL (0.0-1.0); Blood Urea Nitrogen 51 mg/dL (9-16); Calcium 9.6 mg/dL (8.4-10.2); Carbon Dioxide 18 mmol/L (22-29); Chloride 113 mmol/L (96-108); Estimated Glomerular Filt Rate 56; Glucose Random 164 mg/dL (60-115); Potassium 4.2 mmol/L (3.3-5.1); Sodium 140 mmol/L (135-145); Total Protein 6.6 g/dL (6.5-8.0)
[2022-02-24 07:38] VITALS: BP 142/67; PULSE 74; RESP 18; TEMP 36.4; O2SAT 96
[2022-02-24] MEDS: Heparin Sodium,Porcine 5,000 UNIT/ML VIAL 5000 UNIT SUBCUT ×2 (08:05→19:59)
[2022-02-24] MEDS: cefEPime HCl 1 GM in 0.9 % Sodium Chloride 50 ML IV ×2 (08:06→15:48)
[2022-02-24] MEDS: 0.9 % Sodium Chloride Flush 3 ML SYRINGE IVFLUSH ×2 (08:06→15:49)
[2022-02-24] MEDS: 0.9 % Sodium Chloride Flush 10 ML SYRINGE 5 ML IVFLUSH ×3 (10:42→21:21)
--- NOTE | 2022-02-24 10:56 | HO.PM.IMPN ---
Subjective Subjective Date of Service: 02/24/22 <LISA Aguilera - Last Filed: 02/24/22 11:05> 03/04/22 <Toni Garcia MD - Last Filed: 03/04/22 08:40> Interval History: Seen in follow up for epilepsy encephalopathy ICU stepdown 02/19. No events reported over night. Responsiveness continues to very slowly improve. Eyes more open and alert. Delayed response to verbal commands, grasps and holds hands firmly with resistance and improved tone in UE. No voluntary movements LE. <LISA Aguilera - Last Filed: 02/24/22 11:05> Review of Systems Review of Systems: Yes Unobtainable due to mental condition <LISA Aguilera - Last Filed: 02/24/22 11:05> Physical Exam Vital Signs: Vital Signs: Last Vital Signs Temp 97.6 F 02/24/22 07:38 Pulse 74 02/24/22 07:38 Resp 18 02/24/22 07:38 BP 142/67 H 02/24/22 07:38 Pulse Ox 96 02/24/22 07:38 O2 Del Method 02/24/22 07:38 BMI result Body Mass Index 20.8 <LISA Aguilera - Last Filed: 02/24/22 11:05> Constitutional - Awake and alert, eye opens looking around and making eye contact, occassional moans Cardiovascular - S1S2, RRR, No edema Respiratory - Normal lung expansion, Normal respiratory effort, No respiratory distress, CTA bilaterally : suprapubic catheter in place without leakage draining clear/yellow urine Gastrointestinal - NT / ND; +BS; No rebound or guarding Extremities - no calf tenderness bilaterally, no swelling Skin - Warm/Dry Neurological - PERRLA, Unable to fully assess CN function. Independently moving hands, with tight squeeze and hold on command with improved tone in UE. No voluntary movements LE, but recoils with tactile stimulation plantar surface, downgoing babinski, 2+ left patellar reflex, absent right patellar reflex. No facial droop, moaning <LISA Aguilera - Last Filed: 02/24/22 11:05> Objective Data Active Medications Artificial Tears (Artificial Tears 15 Ml Drops) 2 drop EYE-BOTH Q4H [facility] Last Admin: 02/24/22 10:43 Dose: 2 drop Documented By: PENNY Heparin Sodium (Porcine) (Heparin Sodium,Porcine 5,000 Unit/Ml Vial) 5,000 unit SUBCUT Q12H [facility] Last Admin: 02/24/22 08:05 Dose: 5,000 unit Documented By: PENNY Cefepime HCl 1 gm/ Sodium (Chloride) 50 mls @ 100 mls/hr IV Q8H [facility] Last Infusion: 02/24/22 09:03 Dose: 0 mls/hr Documented By: PENNY Levetiracetam (Keppra) 1,000 mg in 100 mls @ 400 mls/hr IV Q12H [facility] Last Infusion: 02/24/22 04:58 Dose: 0 mls/hr Documented By: ALBINA Magnesium Sulfate 10 meq/Potassium Phosphate 30 mmol/Calcium Gluconate 9.3 meq/Sodium Acetate 20 meq/Potassium Acetate 20 meq/Multivitamins 12 ml/ Trace Metals 1.2 ml/ Amino Acids/Dextrose 1,680 mls @ 70 mls/hr IV DAILY@1800 [facility] Stop: 02/24/22 17:59 Last Admin: 02/23/22 17:40 Dose: 70 mls/hr Documented By: DUANE Pharmacy Consult (Consult Rx Perform Med Rec) 1 each MISCELLANE ONCE PRN PRN Reason: Consult order Sodium Chloride (0.9 % Sodium Chloride Flush 3 Ml Syringe) 3 ml IVFLUSH QSHIFT [facility] Last Admin: 02/24/22 08:06 Dose: 3 ml Documented By: PENNY Sodium Chloride (0.9 % Sodium Chloride Flush 10 Ml Syringe) 5 ml IVFLUSH TID [facility] Last Admin: 02/24/22 10:42 Dose: 5 ml Documented By: PENNY <LISA Aguilera - Last Filed: 02/24/22 11:05> Labs CBC & Chem 7: : 03/03/22 08:20 03/04/22 05:47 <LISA Aguilera - Last Filed: 02/24/22 11:05> Labs: Laboratory Results - last 24 hr 02/23/22 02/24/22 12:59 06:04 Anion Gap 10 L 13 Estim Creat Clear Calc 41.0 46.0 Estimated GFR 50 56 Random Glucose 165 H 164 H Calcium 9.8 9.6 Phosphorus 3.3 Magnesium 2.4 Total Bilirubin 0.5 AST 12 ALT 8 Alkaline Phosphatase 48 Total Protein 6.6 Albumin 3.4 L 3.2 L <LISA Aguilera - Last Filed: 02/24/22 11:05> Assessment and Plan (1) Non-convulsive status epilepticus: Status: Acute <LISA Aguilera - Last Filed: 02/24/22 11:05> (2) Epileptic encephalopathy: Status: Acute <LISA Aguilera - Last Filed: 02/24/22 11:05> (3) UTI (urinary tract infection): Status: Acute <LISA Aguilera - Last Filed: 02/24/22 11:05> Assessment and Plan: 81-year-old male with 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 Review of chart demonstrates is similar to the last presentation of admission end of November. Now with persistent epileptic encephalopathy #epileptic encephalopathy- appears to be slowly resolving with increased responsiveness. More alert, eyes opened and looking around, following some commands, moaning -Hypercalcemia resolved -CT head-negative except brain volume loss which more likely goes to a dementia,MRI neg 02/17,? - -seems ok except mildly elevated protein, meningitis panel negative -B12 and TSH normal -eeg-possible status epilepticus, eeg repeated 2 days ago with similar findings, repeated 02/22 with mild slowing but no evidence of seizure -Continue IV keppra 1000mg BID. Addl one time dose 500mg given per neurology 02/22. DC acyclovir -1g Solumedrol for steroid challenge per neuro with minimal improvement in responsivenss. Pt now with mildly increased tone, slight hand squeeze on command, voluntary extremity movements.Discussed with neuro, possible lag in recovery from epilectic encephalopathy which has been treated. Observe and continue tx as above for addl 2 days. Repeat 1g solumedrol daily x2 days given improvement in responsiveness -moniter neurochecks ,tele -Nutrition via TPN.?Nutrition following -Central line d/c'd. PICC line placed -Appreciate neuro input #Right sided facial droop- resolved -initially noted 1235 today by nursing and observed on exam -Stat head CT ordered, results discussed with radiology. No acute stroke -?Lyle's paralysis #UTI -Pseudomonas/VRE in urine cultures; urine VRE; Pseudomonas in blood -/p suprapubic cather change last week due to leaking -ALETHEA resolved -follow renals/divalents iD saw the patient-recomended cefepime for 14 days (D10) (was initially also on ampicillin- dc/d) iD Followup #bacteremia secondary to UTI -Initial blood cultures showing pseudomas/enterococcus -Continue abx as above -Repeat cultures negative ?Hypertension- reasonably controlled -hold antihypertensives? add back when appropriate Coronary artery disease -2D echo 11/06 demonstrates an LVEF between 30 and 35% -cautious fluids hold? dual antiplatelet agents due ti can not take po. above is d/w neuro and iCU in detail-continue current management. DVT proph- heparin Full code. Dispo- given pt presentation and lack of improvement following treatment for epileptic encephalopathy with anti-epileptics as well as steroid challenge, should consider hospice if no improvements in responsiveness after another 2 days after discussion with neuro. Given improvement in responsiveness, continue with streroid challenge and reassess prognosis/dispo in 2 days. inpatient need : epileptic encephalopathy-need IV antiepileptics, IV steroid challenge as well as cefepime, monitor neuro checks and telemetry. Need Neurology and Infectious Disease follow-up. <LISA Aguilera - Last Filed: 02/24/22 11:05> Time Spent With Patient Time: Total time managing care of this patient today ____ minutes. <LISA Aguilera - Last Filed: 02/24/22 11:05> Quality Stroke Does the patient have a stroke diagnosis?: No <LISA Aguilera - Last Filed: 02/24/22 11:05> VTE Prior VTE?: No <LISA Aguilera - Last Filed: 02/24/22 11:05> VTE Risk Level:: Medical - moderate - high <LISA Aguilera Last Filed: 02/24/22 11:05> VTE Device Contraindication: Treatment Not Indicated <LISA Aguilera Last Filed: 02/24/22 11:05> VTE Drug Contraindication: N/A - Med Ordered <LISA Aguilera - Last Filed: 02/24/22 11:05>
[2022-02-24 10:58] LABS: Magnesium 2.4 mg/dL (1.6-2.6); Phosphorus 3.2 mg/dL (2.7-4.5)
[2022-02-24] MEDS: methylPREDNISolone Sod Succ 1,000 MG in 0.9 % Sodium Chloride 50 ML 66 MG IV (13:09)
[2022-02-24 15:24] VITALS: BP 157/75; PULSE 75; RESP 17; TEMP 37.4; O2SAT 97
[2022-02-24] MEDS: Fat Emulsions 20% 250 ML 25 ML IV (17:30)
[2022-02-24 17:33] LABS: Parathyroid Hormone Related Pr 15 pg/mL (11-20)
[2022-02-24 19:28] VITALS: BP 142/73; PULSE 73; RESP 17; TEMP 36.8; O2SAT 96
[2022-02-25] VITALS (8 sets, daily range): BP systolic 136–180; BP diastolic 68–84; PULSE 71–90; RESP 13–20; TEMP 36.7–37; O2SAT 97–99; BMI 20.6
[2022-02-25] MEDS: Artificial Tears 15 ML DROPS 2 DROP EYE-BOTH ×5 (00:24→22:50)
[2022-02-25] MEDS: 0.9 % Sodium Chloride Flush 3 ML SYRINGE IVFLUSH (00:24)
[2022-02-25] MEDS: Fat Emulsions 20% 250 ML 25 ML IV ×2 (00:28→17:46)
[2022-02-25] MEDS: levETIRAcetam in NaCl (iso-os) 1,000 MG/100 ML PIGGYBACK 400 MG IV ×2 (05:45→17:46)
[2022-02-25 08:04] LABS: Alanine Aminotransferase 7 U/L (0-40); Albumin Level 3.4 g/dL (3.5-5.0); Alkaline Phosphatase 57 U/L (39-117); Anion Gap 13 (12-20); Aspartate Amino Transferase 10 U/L (5-37); Bilirubin Total 0.6 mg/dL (0.0-1.0); Blood Urea Nitrogen 54 mg/dL (9-16); Calcium 9.7 mg/dL (8.4-10.2); Carbon Dioxide 18 mmol/L (22-29); Chloride 111 mmol/L (96-108); Creatinine Clr Calc Pharmacy 50.9; Estimated Glomerular Filt Rate > 60; Glucose Random 184 mg/dL (60-115); Potassium 4.6 mmol/L (3.3-5.1); Sodium 137 mmol/L (135-145)
[2022-02-25 08:39] LABS: Magnesium 2.4 mg/dL (1.6-2.6); Phosphorus 2.9 mg/dL (2.7-4.5); Triglycerides 72 mg/dL
[2022-02-25] MEDS: Heparin Sodium,Porcine 5,000 UNIT/ML VIAL 5000 UNIT SUBCUT ×2 (10:23→20:43)
[2022-02-25] MEDS: methylPREDNISolone Sod Succ 1,000 MG in 0.9 % Sodium Chloride 50 ML 66 MG IV (10:23)
--- NOTE | 2022-02-25 16:27 | HO.PM.IMPN ---
Subjective Subjective Date of Service: 02/25/22 <LISA Aguilera - Last Filed: 02/25/22 16:29> 03/04/22 <Toni Garcia MD - Last Filed: 03/04/22 08:40> Interval History: Seen in follow up for epilepsy encephalopathy ICU stepdown 02/19. No events reported over night. Responsiveness continues to very slowly improve. Eyes more open and alert. Uttering yea . Delayed response to verbal commands, grasps and holds hands firmly with resistance and improved tone in UE. Limited movement LE <LISA Aguilera - Last Filed: 02/25/22 16:29> Review of Systems Review of Systems: Yes Unobtainable due to mental condition <LISA Aguilera - Last Filed: 02/25/22 16:29> Physical Exam Vital Signs: Vital Signs: Last Vital Signs Temp 98.1 F 02/25/22 15:38 Pulse 71 02/25/22 15:38 Resp 13 02/25/22 15:38 BP 136/68 02/25/22 15:38 Pulse Ox 97 02/25/22 15:38 O2 Del Method 02/25/22 15:38 BMI result Body Mass Index 20.6 <LISA Aguilera Last Filed: 02/25/22 16:29> Constitutional - Awake and alert, eye opens looking around and making eye contact, occassional moans Cardiovascular - S1S2, RRR, No edema Respiratory - Normal lung expansion, Normal respiratory effort, No respiratory distress, CTA bilaterally : suprapubic catheter in place without leakage draining clear/yellow urine Gastrointestinal - NT / ND; +BS; No rebound or guarding Extremities - no calf tenderness bilaterally, no swelling Skin - Warm/Dry Neurological - PERRLA, Unable to fully assess CN function. Uttering yea . Independently moving hands, with tight squeeze and hold on command with improved tone in UE. No voluntary movements LE, but recoils with tactile stimulation plantar surface, downgoing babinski, 2+ left patellar reflex, absent right patellar reflex. No facial droop, moaning <LISA Aguilera - Last Filed: 02/25/22 16:29> Objective Data Active Medications Artificial Tears (Artificial Tears 15 Ml Drops) 2 drop EYE-BOTH Q4H [facility] Last Admin: 12/11/22 15:01 Dose: 2 drop Documented By: KAREN Heparin Sodium (Porcine) (Heparin Sodium,Porcine 5,000 Unit/Ml Vial) 5,000 unit SUBCUT Q12H [facility] Last Admin: 02/25/22 10:23 Dose: 5,000 unit Documented By: KAREN Levetiracetam (Keppra) 1,000 mg in 100 mls @ 400 mls/hr IV Q12H [facility] Last Infusion: 02/25/22 06:06 Dose: 0 mls/hr Documented By: LUIS M Magnesium Sulfate 10 meq/Potassium Phosphate 30 mmol/Calcium Gluconate 9.3 meq/Sodium Acetate 20 meq/Potassium Acetate 20 meq/Multivitamins 12 ml/ Trace Metals 1.2 ml/ Amino Acids/Dextrose 1,680 mls @ 70 mls/hr IV DAILY@1800 [facility] Stop: 02/25/22 17:59 Last Admin: 02/24/22 17:32 Dose: 70 mls/hr Documented By: PENNY Magnesium Sulfate 10 meq/Potassium Phosphate 30 mmol/Calcium Gluconate 9.3 meq/Sodium Acetate 20 meq/ Sodium Phosphate 20 mmol/ Potassium Acetate 20 meq/ Multivitamins 12 ml/ Trace Metals 1.2 ml/Amino Acids/Dextrose 1,680 mls @ 70 mls/hr IV DAILY@1800 [facility] Stop: 02/26/22 17:59 Fat Emulsion Intravenous (Intralipid) 150 mls @ 25 mls/hr IV DAILY@1800 [facility] Stop: 02/25/22 23:59 Fat Emulsion Intravenous (Intralipid) 150 mls @ 25 mls/hr IV DAILY@0000 [facility] Stop: 02/26/22 05:59 Pharmacy Consult (Consult Rx Perform Med Rec) 1 each MISCELLANE ONCE PRN PRN Reason: Consult order Sodium Chloride (0.9 % Sodium Chloride Flush 3 Ml Syringe) 3 ml IVFLUSH QSHIFT [facility] Last Admin: 02/25/22 07:01 Dose: Not Given Documented By: KAREN Non-Admin Reason: See Note Sodium Chloride (0.9 % Sodium Chloride Flush 10 Ml Syringe) 5 ml IVFLUSH TID [facility] Last Admin: 02/25/22 10:24 Dose: Not Given Documented By: KAREN Non-Admin Reason: See Note <LISA Aguilera - Last Filed: 02/25/22 16:29> Labs CBC & Chem 7: : 03/03/22 08:20 03/04/22 05:47 <LISA Aguilera - Last Filed: 02/25/22 16:29> Labs: Laboratory Results - last 24 hr 02/18/22 02/25/22 17:19 07:09 Anion Gap 13 Estim Creat Clear Calc 50.9 Estimated GFR > 60 Random Glucose 184 H Calcium 9.7 Phosphorus 2.9 Magnesium 2.4 Total Bilirubin 0.6 AST 10 ALT 7 Alkaline Phosphatase 57 Total Protein 7.0 Albumin 3.4 L Triglycerides 72 PTH Related Protein 15 <LISA Aguilera - Last Filed: 02/25/22 16:29> Assessment and Plan (1) Non-convulsive status epilepticus: Status: Acute <LISA Aguilera - Last Filed: 02/25/22 16:29> (2) Epileptic encephalopathy: Status: Acute <LISA Aguilera - Last Filed: 02/25/22 16:29> (3) UTI (urinary tract infection): Status: Acute <LISA Aguilera - Last Filed: 02/25/22 16:29> Assessment and Plan: 81-year-old male with 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 Review of chart demonstrates is similar to the last presentation of admission end of November. Now with persistent epileptic encephalopathy iwth steady improvements in responsiveness #epileptic encephalopathy- appears to be slowly resolving with increased responsiveness. More alert, eyes opened and looking around, following some commands, moaning -Hypercalcemia resolved -CT head-negative except brain volume loss which more likely goes to a dementia,MRI neg 02/17,? - -seems ok except mildly elevated protein, meningitis panel negative -B12 and TSH normal -eeg-possible status epilepticus, eeg repeated 2 days ago with similar findings, repeated 02/22 with mild slowing but no evidence of seizure -Continue IV keppra 1000mg BID. Addl one time dose 500mg given per neurology 02/22. DC acyclovir -1g Solumedrol for steroid challenge per neuro with minimal improvement in responsivenss. Pt now with mildly increased tone, slight hand squeeze on command, voluntary extremity movements.Discussed with neuro, possible lag in recovery from epilectic encephalopathy which has been treated. Observe and continue tx as above for addl 2 days. Repeat 1g solumedrol daily x2 days given improvement in responsiveness -moniter neurochecks ,tele -Nutrition via TPN.?Nutrition following -Central line d/c'd. PICC line placed -Appreciate neuro input #Right sided facial droop- resolved -initially noted 1235 today by nursing and observed on exam -Stat head CT ordered, results discussed with radiology. No acute stroke -?Lyle's paralysis #UTI -Pseudomonas/VRE in urine cultures; urine VRE; Pseudomonas in blood -/p suprapubic cather change last week due to leaking -ALETHEA resolved -follow renals/divalents iD saw the patient-recomended cefepime for 14 days (D10) (was initially also on ampicillin- dc/d) iD Followup #bacteremia secondary to UTI -Initial blood cultures showing pseudomas/enterococcus -Continue abx as above -Repeat cultures negative ?Hypertension- reasonably controlled -hold antihypertensives? add back when appropriate Coronary artery disease -2D echo 11/06 demonstrates an LVEF between 30 and 35% -cautious fluids hold? dual antiplatelet agents due ti can not take po. above is d/w neuro and iCU in detail-continue current management. DVT proph- heparin Full code. Dispo- given pt presentation and lack of improvement following treatment for epileptic encephalopathy with anti-epileptics as well as steroid challenge, should consider hospice if no improvements in responsiveness after another 2 days after discussion with neuro. Given improvement in responsiveness, continue with streroid challenge and reassess prognosis/dispo tomorrow inpatient need : epileptic encephalopathy-need IV antiepileptics, IV steroid challenge as well as cefepime, monitor neuro checks and telemetry. Need Neurology and Infectious Disease follow-up. <LISA Aguilera - Last Filed: 02/25/22 16:29> Time Spent With Patient Time: Total time managing care of this patient today ____ minutes. <LISA Aguilera - Last Filed: 02/25/22 16:29> Quality Stroke Does the patient have a stroke diagnosis?: No <LISA Aguilera - Last Filed: 02/25/22 16:29> VTE Prior VTE?: No <LISA Aguilera - Last Filed: 02/25/22 16:29> VTE Risk Level:: Medical - moderate - high <LISA Aguilera - Last Filed: 02/25/22 16:29> VTE Device Contraindication: Treatment Not Indicated <LISA Aguilera - Last Filed: 02/25/22 16:29> VTE Drug Contraindication: N/A - Med Ordered <LISA Aguilera - Last Filed: 02/25/22 16:29>
[2022-02-25] MEDS: 0.9 % Sodium Chloride Flush 10 ML SYRINGE 5 ML IVFLUSH (20:42)
[2022-02-26] MEDS: 0.9 % Sodium Chloride Flush 3 ML SYRINGE IVFLUSH ×4 (02:11→22:36)
[2022-02-26] MEDS: Fat Emulsions 20% 250 ML 25 ML IV ×2 (02:29→22:19)
[2022-02-26 03:22] VITALS: BP 144/74; PULSE 85; RESP 18; TEMP 36.7; O2SAT 99
[2022-02-26 06:00] VITALS: BMI 19.5
[2022-02-26] MEDS: levETIRAcetam in NaCl (iso-os) 1,000 MG/100 ML PIGGYBACK 400 MG IV ×2 (06:34→17:40)
[2022-02-26 07:50] VITALS: BP 158/79; PULSE 79; RESP 12; TEMP 36.6; O2SAT 99
[2022-02-26 08:44] LABS: Alanine Aminotransferase 8 U/L (0-40); Albumin Level 3.4 g/dL (3.5-5.0); Alkaline Phosphatase 56 U/L (39-117); Anion Gap 15 (12-20); Aspartate Amino Transferase 12 U/L (5-37); Bilirubin Total 0.6 mg/dL (0.0-1.0); Blood Urea Nitrogen 63 mg/dL (9-16); Calcium 9.7 mg/dL (8.4-10.2); Carbon Dioxide 17 mmol/L (22-29); Chloride 111 mmol/L (96-108); Creatinine Clr Calc Pharmacy 43.9; Estimated Glomerular Filt Rate 57; Glucose Random 215 mg/dL (60-115); Potassium 4.5 mmol/L (3.3-5.1); Sodium 138 mmol/L (135-145); Total Protein 7.1 g/dL (6.5-8.0)
[2022-02-26 09:10] LABS: Magnesium 2.4 mg/dL (1.6-2.6); Phosphorus 3.8 mg/dL (2.7-4.5)
[2022-02-26] MEDS: Artificial Tears 15 ML DROPS 2 DROP EYE-BOTH ×4 (09:31→22:26)
[2022-02-26] MEDS: Heparin Sodium,Porcine 5,000 UNIT/ML VIAL 5000 UNIT SUBCUT ×2 (09:32→22:31)
--- NOTE | 2022-02-26 09:42 | P.PNIM_ITS ---
Subjective Subjective Date of Service: 02/26/22 <LISA Aguilera - Last Filed: 02/26/22 11:23> 03/04/22 <Toni Garcia MD - Last Filed: 03/04/22 08:40> Interval History: Seen in follow up for epilepsy encephalopathy ICU stepdown 02/19. No events reported over night. Responsiveness continues to very slowly improve. Eyes more open and alert. No verbal response today. Delayed response to verbal commands, grasps and holds hands firmly with resistance and improved tone in UE. Limited movement LE <LISA Aguilera - Last Filed: 02/26/22 11:23> Review of Systems Review of Systems: Yes Unobtainable due to mental condition <LISA Aguilera - Last Filed: 02/26/22 11:23> Physical Exam Vital Signs: Vital Signs: Last Vital Signs Temp 97.8 F 02/26/22 07:50 Pulse 79 02/26/22 07:50 Resp 12 02/26/22 07:50 BP 158/79 H 02/26/22 07:50 Pulse Ox 99 02/26/22 07:50 O2 Del Method 02/26/22 07:50 BMI result Body Mass Index 19.5 <LISA Aguilera Last Filed: 02/26/22 11:23> Constitutional - Awake and alert, eye opens looking around and making eye contact Cardiovascular - S1S2, RRR, No edema Respiratory - Normal lung expansion, Normal respiratory effort, No respiratory distress, CTA bilaterally : suprapubic catheter in place without leakage draining clear/yellow urine Gastrointestinal - NT / ND; +BS; No rebound or guarding Extremities - no calf tenderness bilaterally, no swelling Skin - Warm/Dry Neurological - PERRLA, Unable to fully assess CN function. Nonverbal today. Independently moving hands, with tight squeeze and hold on command with improved tone in UE. No voluntary movements LE, but recoils with tactile stimulation plantar surface, downgoing babinski, 2+ left patellar reflex, absent right patellar reflex. No facial droop <LISA Aguilera - Last Filed: 02/26/22 11:23> Objective Data Active Medications Artificial Tears (Artificial Tears 15 Ml Drops) 2 drop EYE-BOTH Q4H [facility] Last Admin: 02/26/22 09:31 Dose: 2 drop Documented By: ARNALDO Heparin Sodium (Porcine) (Heparin Sodium,Porcine 5,000 Unit/Ml Vial) 5,000 unit SUBCUT Q12H [facility] Last Admin: 02/26/22 09:32 Dose: 5,000 unit Documented By: ARNALDO Levetiracetam (Keppra) 1,000 mg in 100 mls @ 400 mls/hr IV Q12H [facility] Last Infusion: 02/26/22 06:58 Dose: 400 mls/hr Documented By: AYDE Magnesium Sulfate 10 meq/Potassium Phosphate 30 mmol/Calcium Gluconate 9.3 meq/Sodium Acetate 20 meq/ Sodium Phosphate 20 mmol/ Potassium Acetate 20 meq/ Multivitamins 12 ml/ Trace Metals 1.2 ml/Amino Acids/Dextrose 1,680 mls @ 70 mls/hr IV DAILY@1800 [facility] Stop: 02/26/22 17:59 Last Admin: 02/25/22 17:46 Dose: 70 mls/hr Documented By: KAREN Pharmacy Consult (Consult Rx Perform Med Rec) 1 each MISCELLANE ONCE PRN PRN Reason: Consult order Sodium Chloride (0.9 % Sodium Chloride Flush 3 Ml Syringe) 3 ml IVFLUSH QSHIFT [facility] Last Admin: 02/26/22 09:31 Dose: 3 ml Documented By: ARNALDO Sodium Chloride (0.9 % Sodium Chloride Flush 10 Ml Syringe) 5 ml IVFLUSH TID [facility] Last Admin: 02/26/22 09:32 Dose: Not Given Documented By: ARNALDO Non-Admin Reason: Duplicate Order <LISA Aguilera - Last Filed: 02/26/22 11:23> Labs CBC & Chem 7: : 03/03/22 08:20 03/04/22 05:47 <LISA Aguilera - Last Filed: 02/26/22 11:23> Labs: Laboratory Results - last 24 hr 02/26/22 07:56 Anion Gap 15 Estim Creat Clear Calc 43.9 Estimated GFR 57 Random Glucose 215 H Calcium 9.7 Phosphorus 3.8 Magnesium 2.4 Total Bilirubin 0.6 AST 12 ALT 8 Alkaline Phosphatase 56 Total Protein 7.1 Albumin 3.4 L <LISA Aguilera - Last Filed: 02/26/22 11:23> Assessment and Plan (1) Non-convulsive status epilepticus: Status: Acute <LISA Aguilera - Last Filed: 02/26/22 11:23> (2) Epileptic encephalopathy: Status: Acute <LISA Aguilera - Last Filed: 02/26/22 11:23> (3) UTI (urinary tract infection): Status: Acute <LISA Aguilera - Last Filed: 02/26/22 11:23> Assessment and Plan: 81-year-old male with suprapubic catheter secondary to non malignant pe nile mass presents with weakness progressing over the last several days in active urine sediment.? Review of chart demonstrates is similar to the last presentation of admission end of November. Now with persistent epileptic encephalopathy iwth steady improvements in responsiveness #epileptic encephalopathy- appears to be slowly resolving with increased responsiveness. More alert, eyes opened and looking around, following some commands, moaning, uttering yea -Hypercalcemia resolved -CT head-negative except brain volume loss which more likely goes to a dementia,MRI neg 02/17,? - -seems ok except mildly elevated protein, meningitis panel negative -B12 and TSH normal -eeg-possible status epilepticus, eeg repeated 2 days ago with similar findings, repeated 02/22 with mild slowing but no evidence of seizure -Continue IV keppra 1000mg BID. Addl one time dose 500mg given per neurology 02/22. DC acyclovir -1g Solumedrol for steroid challenge per neuro with minimal improvement in responsivenss. Pt now with mildly increased tone, slight hand squeeze on command, voluntary extremity movements.Discussed with neuro, possible lag in recovery from epilectic encephalopathy which has been treated. Completed 3 days 1g IV solumedrol with some improvement in responsiveness -initiate prolonged glucocorticoid steroid taper per Neurology: 60 mg prednisone daily times 2 weeks, 40 mg prednisone daily x2 weeks, 20 mg prednisone daily x2 weeks, 10 mg prednisone daily x2 weeks, 5 mg prednisone daily x2 weeks, 2.5 mg daily x2 weeks -transition to PEG tube for parental nutrition. General surgery consult placed. Once placed, d/c PICC line -continue telemetry, neuro checks -discharge to short-term rehab facility with outpatient follow-up with Neurology in 6-8 weeks. #Right sided facial droop- resolved -initially noted 1235 today by nursing and observed on exam -Stat head CT ordered, results discussed with radiology. No acute stroke -?Lyle's paralysis #UTI -Pseudomonas/VRE in urine cultures; urine VRE; Pseudomonas in blood -/p suprapubic cather change last week due to leaking -ALETHEA resolved -follow renals/divalents iD saw the patient-recommended cefepime for 14 days (D12) (was initially also on ampicillin- dc/d) iD Followup #bacteremia secondary to UTI -Initial blood cultures showing pseudomas/enterococcus -Continue abx as above -Repeat cultures negative ?Hypertension- reasonably controlled -hold antihypertensives? add back when appropriate Coronary artery disease -2D echo 11/06 demonstrates an LVEF between 30 and 35% -cautious fluids hold? dual antiplatelet agents due ti can not take po. above is d/w neuro and iCU in detail-continue current management. DVT proph- heparin Full code. Dispo- given pt presentation and lack of improvement following treatment for epileptic encephalopathy with anti-epileptics as well as steroid challenge, should consider hospice if no improvements in responsiveness after another 2 days after discussion with neuro. Completed steroid challenge with improvement in responsiveness. Continue daily prednisone taper as above per neurology. Transition to PEG tube for parental nutrition, discharge to [facility] for continued management of resolving epilectic encephalopathy. Discussed with HCP, Shelby, who is in agreement inpatient need : epileptic encephalopathy-need IV antiepileptics, IV steroid challenge as well as cefepime, monitor neuro checks and telemetry. Need Neurology and Infectious Disease follow-up. <LISA Aguilera - Last Filed: 02/26/22 11:23> Time Spent With Patient Time: Total time managing care of this patient today ____ minutes. <LISA Aguilera - Last Filed: 02/26/22 11:23> Quality Stroke Does the patient have a stroke diagnosis?: No <LISA Aguilera - Last Filed: 02/26/22 11:23> VTE Prior VTE?: No <LISA Aguilera - Last Filed: 02/26/22 11:23> VTE Risk Level:: Medical - moderate - high <LISA Aguilera Last Filed: 02/26/22 11:23> VTE Device Contraindication: Treatment Not Indicated <LISA Aguilera - Last Filed: 02/26/22 11:23> VTE Drug Contraindication: N/A - Med Ordered <LISA Aguilera - Last Filed: 02/26/22 11:23>
--- NOTE | 2022-02-26 09:48 | MHC.CLN ---
F/U REVIEWED LABS PT RECEIVED TPN D15AA5 AT 70ML PER HR WITH 25ML OF 20% LIPIDS PROVIDES 1793KCALS (27KCALS/KG), 84G PROTEIN (1.3G/KG) DISCUSSED WITH PHARMACY CONTINUE CURRENT FORMULA REPLETE LYTES NEEDED GOALS OF CARE DISCUSSION PENDING PER MD FOLLOWING
[2022-02-26] MEDS: methylPREDNISolone Sod Succ 125 MG/2 ML VIAL 60 MG IVPUSH (10:45)
[2022-02-26 11:44] VITALS: BP 186/82; PULSE 83; RESP 14; TEMP 36.7; O2SAT 100
[2022-02-26 14:59] VITALS: BP 111/59; PULSE 68; RESP 16; TEMP 36.3; O2SAT 94
[2022-02-26] MEDS: 0.9 % Sodium Chloride Flush 10 ML SYRINGE 5 ML IVFLUSH ×2 (15:33→22:30)
--- NOTE | 2022-02-26 17:11 | PM.CNGS ---
History of Present Illness Consult details Consult date: 02/26/22 Narrative: 81-year-old male with dementia, referred for PEG tube placement. He had been admitted since 02/07/2022 because of a urinary tract infection. He had a suprapubic tube placed in the past because of a penile mass. According to his girlfriend, this seemed to have been leaking as well around that time. His current hospital stay was complicated by encephalopathy along with seizure episode. He therefore had been practically nonverbal for about 2 weeks now. He has had no improvement with regards was mental status. I have therefore been asked to place a PEG tube. 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 Mother No problems noted. Family history: reviewed and not pertinent Surgical History Surgical History History of surgery Social History Social History Household Members: Significant Other Housing: Condominium Do you presently have visiting nurse or other home services: Yes Alcohol intake: never Patient Tobacco Use Status: Never used Tobacco e-Cigarette/Vaping Use: Never Used Second Hand Smoke Exposure: No Advance Directives Date on File: 09/21/21 service: No Current occupational status: unemployed and retired Meds Allergies Allergy/AdvReac Type Severity Reaction Status Date / Time No Known Allergies Allergy Verified 10/25/21 08:15 Active Medications: Current Medications Artificial Tears (Artificial Tears 15 Ml Drops) 2 drop EYE-BOTH Q4H [facility] Last Admin: 02/26/22 15:33 Dose: 2 drop Heparin Sodium (Porcine) (Heparin Sodium,Porcine 5,000 Unit/Ml Vial) 5,000 unit SUBCUT Q12H [facility] Last Admin: 02/26/22 09:32 Dose: 5,000 unit Hydralazine HCl (Hydralazine Hcl 20 Mg/Ml Vial) 10 mg IVPUSH Q6H PRN; Protocol PRN Reason: Sbp > 180 Levetiracetam (Keppra) 1,000 mg in 100 mls @ 400 mls/hr IV Q12H [facility] Last Infusion: 02/26/22 06:58 Dose: Infused Fat Emulsion Intravenous (Intralipid) 150 mls @ 25 mls/hr IV DAILY@0000,1800 [facility] Stop: 02/27/22 05:59 Magnesium Sulfate 10 meq/Potassium Phosphate 30 mmol/Calcium Gluconate 9.3 meq/Sodium Acetate 30 meq/ Sodium Phosphate 20 mmol/ Potassium Acetate 20 meq/ Multivitamins 12 ml/ Trace Metals 1.2 ml/Amino Acids/Dextrose 1,680 mls @ 70 mls/hr IV DAILY@1800 [facility] Stop: 02/27/22 17:59 Methylprednisolone Sodium Succinate (Methylprednisolone Sod Succ 125 Mg/2 Ml Vial) 60 mg IVPUSH DAILY [facility] Stop: 03/11/22 09:01 Last Admin: 02/26/22 10:45 Dose: 60 mg Pharmacy Consult (Consult Rx Perform Med Rec) 1 each MISCELLANE ONCE PRN PRN Reason: Consult order Sodium Chloride (0.9 % Sodium Chloride Flush 3 Ml Syringe) 3 ml IVFLUSH QSHIFT [facility] Last Admin: 02/26/22 15:34 Dose: 3 ml Sodium Chloride (0.9 % Sodium Chloride Flush 10 Ml Syringe) 5 ml IVFLUSH TID [facility] Last Admin: 02/26/22 15:33 Dose: 5 ml Home Medications Medication Instructions Recorded Confirmed Last Taken Type aspirin 81 mg tablet,delayed 81 mg PO DAILY 12/12/21 02/07/22 02/07/22 History release lisinopril 5 mg tablet 5 mg PO DAILY 12/12/21 02/07/22 02/07/22 History rosuvastatin 10 mg tablet 1 tab PO BEDTIME 12/12/21 02/07/22 02/06/22 History ticagrelor 90 mg tablet 90 mg PO BID 12/12/21 02/07/22 02/06/22 History Physical Exam Vital Signs: Vital Signs: Last Vital Signs Temp 97.3 F 02/26/22 14:59 Pulse 68 02/26/22 14:59 Resp 16 02/26/22 14:59 BP 111/59 L 02/26/22 14:59 Pulse Ox 94 02/26/22 14:59 O2 Del Method 02/26/22 14:59 BMI result Body Mass Index 19.5 Const: Other: Not communicative, eyes open spontaneously General: No no acute distress Resp: Effort & Inspection: normal respiratory effort Cardio: Rate: regular rate GI: Other: No upper abdominal scars Palpation (GI): Soft to palpation, not firm and nontender : Other: Suprapubic tube in place Results Labs Result diagrams: 03/01/22 06:21 03/01/22 06:21 Labs: Abnormal lab results 02/26/22 Range/Units 07:56 Chloride 111 H (96-108) mmol/L Carbon Dioxide 17 L (22-29) mmol/L BUN 63 H (9-16) mg/dL Random Glucose 215 H (60-115) mg/dL Albumin 3.4 L (3.5-5.0) g/dL BMP 02/26/22 07:56 Sodium 138 Potassium 4.5 Chloride 111 H Carbon Dioxide 17 L BUN 63 H Creatinine 1.22 Calcium 9.7 Liver Function 02/26/22 Range/Units 07:56 Total Bilirubin 0.6 (0.0-1.0) mg/dL AST 12 (5-37) U/L ALT 8 (0-40) U/L Alkaline Phosphatase 56 (39-117) U/L Albumin 3.4 L (3.5-5.0) g/dL Urine 02/07/22 Range/Units 15:14 Urine Color Yellow Urine Appearance Turbid Urine pH 8.5 (5.0-9.0) Ur Specific [place] 1.010 (1.005-1.025) Urine Protein 30 (1+) H (Neg-Trace) mg/dL Urine Glucose (UA) Negative (Negative) mg/dL All other labs normal. Assessment and Plan (1) Epileptic encephalopathy: Status: Acute He has had epileptic encephalopathy with subsequent poor oral intake.I have been requested to place a PEG tube. I will discuss this with the healthcare proxy who is his girlfriend. I will review all his current data and most likely schedule this peg tube if deemed appropriate, this Saturday. Time Spent With Patient Time: Total time managing care of this patient today ____ minutes. Procedures Date of Service Date of Service: 02/26/22
[2022-02-26 19:14] VITALS: BP 135/66; PULSE 78; RESP 16; TEMP 36.4; O2SAT 96
[2022-02-26 23:42] VITALS: BP 164/77; PULSE 75; RESP 18; TEMP 37.5; O2SAT 98
[2022-02-27 04:00] VITALS: BP 131/60; PULSE 76; RESP 18; TEMP 36.8; O2SAT 96
[2022-02-27] MEDS: Artificial Tears 15 ML DROPS 2 DROP EYE-BOTH ×6 (04:37→23:22)
[2022-02-27] MEDS: levETIRAcetam in NaCl (iso-os) 1,000 MG/100 ML PIGGYBACK 400 MG IV ×2 (04:37→17:02)
[2022-02-27 06:00] VITALS: BMI 21.1
[2022-02-27 07:15] VITALS: BP 127/59; PULSE 75; RESP 15; TEMP 36.2; O2SAT 97
[2022-02-27] MEDS: Fat Emulsions 20% 250 ML 25 ML IV ×2 (07:20→18:17)
[2022-02-27 07:25] LABS: Anion Gap 11 (12-20); Blood Urea Nitrogen 69 mg/dL (9-16); Calcium 9.2 mg/dL (8.4-10.2); Carbon Dioxide 18 mmol/L (22-29); Chloride 112 mmol/L (96-108); Creatinine Clr Calc Pharmacy 51.6; Estimated Glomerular Filt Rate > 60; Glucose Random 178 mg/dL (60-115); Magnesium 2.3 mg/dL (1.6-2.6); Phosphorus 3.7 mg/dL (2.7-4.5); Potassium 4.1 mmol/L (3.3-5.1); Sodium 137 mmol/L (135-145)
[2022-02-27] MEDS: 0.9 % Sodium Chloride Flush 3 ML SYRINGE IVFLUSH ×3 (07:47→20:29)
[2022-02-27] MEDS: 0.9 % Sodium Chloride Flush 10 ML SYRINGE 5 ML IVFLUSH ×3 (07:48→20:48)
[2022-02-27] MEDS: methylPREDNISolone Sod Succ 125 MG/2 ML VIAL 60 MG IVPUSH (07:48)
[2022-02-27] MEDS: Heparin Sodium,Porcine 5,000 UNIT/ML VIAL 5000 UNIT SUBCUT ×2 (07:49→21:08)
--- NOTE | 2022-02-27 09:07 | PM.NEUROCN ---
History of Present Illness Data of Consult Service Date: 02/27/22 Primary Care Provider: Obinna Moreau MD [facility] Reason for consult: Encephalopathy 81 years old man with multifactorial encephalopathy likely from combination of encephalitis and associated complex partial seizure disorder. At 1 point he was noted to be in nonconvulsive status. His EEG done after antiepileptics revealed resolution of status. He was treated with antibiotics and antiviral and later also with Solu-Medrol. With Solu-Medrol treatment his mentation slightly improved. Review of Systems Review of Systems: Could not be done with [facility] Past Medical History Medical History Accelerated essential hypertension Acute subendocardial CT of anterior wall BPH w urinary obs/LUTS Cardiomyopathy HTN (hypertension) Hypercholesterolemia Hyperlipidemia NSTEMI (non-ST elevated myocardial infarction) OA (osteoarthritis) Penile mass Pulmonary embolism Shortness of breath Urinary retention Family History Family History Father No problems noted. Mother No problems noted. Family history: reviewed and not pertinent Surgical History Surgical History History of surgery Social History Social History Household Members: Significant Other Housing: Condominium Do you presently have visiting nurse or other home services: Yes Alcohol intake: never Patient Tobacco Use Status: Never used Tobacco e-Cigarette/Vaping Use: Never Used Second Hand Smoke Exposure: No Advance Directives Date on File: 09/21/21 service: No Current occupational status: unemployed and retired Meds Allergies Allergy/AdvReac Type Severity Reaction Status Date / Time No Known Allergies Allergy Verified 10/25/21 08:15 Active Medications: Current Medications Artificial Tears (Artificial Tears 15 Ml Drops) 2 drop EYE-BOTH Q4H [facility] Last Admin: 02/27/22 04:37 Dose: 2 drop Heparin Sodium (Porcine) (Heparin Sodium,Porcine 5,000 Unit/Ml Vial) 5,000 unit SUBCUT Q12H [facility] Last Admin: 02/27/22 07:49 Dose: 5,000 unit Hydralazine HCl (Hydralazine Hcl 20 Mg/Ml Vial) 10 mg IVPUSH Q6H PRN; Protocol PRN Reason: Sbp > 180 Levetiracetam (Keppra) 1,000 mg in 100 mls @ 400 mls/hr IV Q12H [facility] Last Infusion: 02/27/22 06:08 Dose: Infused Magnesium Sulfate 10 meq/Potassium Phosphate 30 mmol/Calcium Gluconate 9.3 meq/Sodium Acetate 30 meq/ Sodium Phosphate 20 mmol/ Potassium Acetate 20 meq/ Multivitamins 12 ml/ Trace Metals 1.2 ml/Amino Acids/Dextrose 1,680 mls @ 70 mls/hr IV DAILY@1800 [facility] Stop: 02/27/22 17:59 Last Admin: 02/26/22 18:33 Dose: 70 mls/hr Cefazolin Sodium/Dextrose (Ancef) 2 gm in 50 mls @ 100 mls/hr IV PREOP ONE Stop: 02/28/22 09:30 Methylprednisolone Sodium Succinate (Methylprednisolone Sod Succ 125 Mg/2 Ml Vial) 60 mg IVPUSH DAILY [facility] Stop: 03/11/22 09:01 Last Admin: 02/27/22 07:48 Dose: 60 mg Pharmacy Consult (Consult Rx Perform Med Rec) 1 each MISCELLANE ONCE PRN PRN Reason: Consult order Sodium Chloride (0.9 % Sodium Chloride Flush 3 Ml Syringe) 3 ml IVFLUSH QSHIFT [facility] Last Admin: 02/27/22 07:47 Dose: 3 ml Sodium Chloride (0.9 % Sodium Chloride Flush 10 Ml Syringe) 5 ml IVFLUSH TID [facility] Last Admin: 02/27/22 07:48 Dose: 5 ml Home Medications Medication Instructions Recorded Confirmed Last Taken Type aspirin 81 mg tablet,delayed 81 mg PO DAILY 12/12/21 02/07/22 02/07/22 History release lisinopril 5 mg tablet 5 mg PO DAILY 12/12/21 02/07/22 02/07/22 History rosuvastatin 10 mg tablet 1 tab PO BEDTIME 12/12/21 02/07/22 02/06/22 History ticagrelor 90 mg tablet 90 mg PO BID 12/12/21 02/07/22 02/06/22 History Physical Exam Vital Signs: Vital Signs: Last Vital Signs Temp 97.1 F 02/27/22 07:15 Pulse 75 02/27/22 07:15 Resp 15 02/27/22 07:15 BP 127/59 L 02/27/22 07:15 Pulse Ox 97 02/27/22 07:15 O2 Del Method 02/27/22 07:15 BMI result Body Mass Index 21.1 Neuro: Other: Drowsy makes an eye contact. He did not tell me his name when I asked him to do so but when I asked him how he was doing he said ?yeah?. There was no gaze deviation or any focal weakness or seizure-like movement Results Labs CBC & Chem 7: 02/22/22 07:49 02/27/22 07:00 Labs: BMP 02/27/22 07:00 Sodium 137 Potassium 4.1 Chloride 112 H Carbon Dioxide 18 L BUN 69 H Creatinine 1.12 Calcium 9.2 Microbiology Microbiology Results: Microbiology 02/19/22 13:47 Cerebrospinal Fluid Gram Stain - Final 02/19/22 13:47 Cerebrospinal Fluid CSF Examination - Final 02/19/22 13:47 Cerebrospinal Fluid Fluid Description - Final 02/19/22 13:47 Cerebrospinal Fluid CSF Culture - Final No growth after 3 days. 02/07/22 16:46 Blood - Venous Blood Culture - Final No growth after 5 days. 02/07/22 16:50 Blood - Venous Blood Culture - Final No growth after 5 days. 02/07/22 15:43 Urine clean catch - Urine chung top Urine Culture - Final Pseudomonas aeruginosa Enterococcus faecalis Assessment and Plan (1) Encephalopathy: Status: Acute 81 years old man with multifactorial encephalopathy. Partial status epilepticus was controlled with levetiracetam. He was treated with antibiotics and antiviral and more recently with the Solu-Medrol. At this time we were waiting for paraneoplastic panel. As far as treatment is concerned, I would recommend prednisone 60 mg a day and then slow taper in few weeks time. He could be transferred to rehab. Time Spent With Patient Time: Total time managing care of this patient today ____ minutes. Procedures Date of Service Date of Service: 02/27/22
--- NOTE | 2022-02-27 09:37 | HO.PM.IMPN ---
Subjective Subjective Date of Service: 02/27/22 Interval History: Seen in follow up for epilepsy encephalopathy ICU stepdown 02/19. No events reported over night. Responsiveness unchanged Review of Systems Review of Systems: Yes Unobtainable due to mental condition Physical Exam Vital Signs: Vital Signs: Last Vital Signs Temp 97.1 F 02/27/22 07:15 Pulse 75 02/27/22 07:15 Resp 15 02/27/22 07:15 BP 127/59 L 02/27/22 07:15 Pulse Ox 97 02/27/22 07:15 O2 Del Method 02/27/22 07:15 BMI result Body Mass Index 21.1 Constitutional - Awake and alert, eye opens looking around and making eye contact Cardiovascular - S1S2, RRR, No edema Respiratory - Normal lung expansion, Normal respiratory effort, No respiratory distress, CTA bilaterally : suprapubic catheter in place without leakage draining clear/yellow urine Gastrointestinal - NT / ND; +BS; No rebound or guarding Extremities - no calf tenderness bilaterally, no swelling Skin - Warm/Dry Neurological - PERRLA, Unable to fully assess CN function. Nonverbal today. Independently moving hands, with tight squeeze and hold on command with improved tone in UE. No voluntary movements LE, but recoils with tactile stimulation plantar surface, downgoing babinski, 2+ left patellar reflex, absent right patellar reflex. No facial droop Objective Data Active Medications Artificial Tears (Artificial Tears 15 Ml Drops) 2 drop EYE-BOTH Q4H [facility] Last Admin: 02/27/22 04:37 Dose: 2 drop Documented By: ROD Heparin Sodium (Porcine) (Heparin Sodium,Porcine 5,000 Unit/Ml Vial) 5,000 unit SUBCUT Q12H [facility] Last Admin: 02/27/22 07:49 Dose: 5,000 unit Documented By: ARNALDO Hydralazine HCl (Hydralazine Hcl 20 Mg/Ml Vial) 10 mg IVPUSH Q6H PRN; Protocol PRN Reason: Sbp > 180 Levetiracetam (Keppra) 1,000 mg in 100 mls @ 400 mls/hr IV Q12H [facility] Last Infusion: 02/27/22 06:08 Dose: 0 mls/hr Documented By: ROD Magnesium Sulfate 10 meq/Potassium Phosphate 30 mmol/Calcium Gluconate 9.3 meq/Sodium Acetate 30 meq/ Sodium Phosphate 20 mmol/ Potassium Acetate 20 meq/ Multivitamins 12 ml/ Trace Metals 1.2 ml/Amino Acids/Dextrose 1,680 mls @ 70 mls/hr IV DAILY@1800 [facility] Stop: 02/27/22 17:59 Last Admin: 02/26/22 18:33 Dose: 70 mls/hr Documented By: ARNALDO Cefazolin Sodium/Dextrose (Ancef) 2 gm in 50 mls @ 100 mls/hr IV PREOP ONE Stop: 02/28/22 09:30 Methylprednisolone Sodium Succinate (Methylprednisolone Sod Succ 125 Mg/2 Ml Vial) 60 mg IVPUSH DAILY [facility] Stop: 03/11/22 09:01 Last Admin: 02/27/22 07:48 Dose: 60 mg Documented By: ARNALDO Pharmacy Consult (Consult Rx Perform Med Rec) 1 each MISCELLANE ONCE PRN PRN Reason: Consult order Sodium Chloride (0.9 % Sodium Chloride Flush 3 Ml Syringe) 3 ml IVFLUSH QSHIFT [facility] Last Admin: 02/27/22 07:47 Dose: 3 ml Documented By: ARNALDO Sodium Chloride (0.9 % Sodium Chloride Flush 10 Ml Syringe) 5 ml IVFLUSH TID [facility] Last Admin: 02/27/22 07:48 Dose: 5 ml Documented By: ARNALDO Labs CBC & Chem 7: 02/22/22 07:49 02/27/22 07:00 Labs: Laboratory Results - last 24 hr 02/27/22 07:00 Anion Gap 11 L Estim Creat Clear Calc 51.6 Estimated GFR > 60 Random Glucose 178 H Calcium 9.2 Phosphorus 3.7 Magnesium 2.3 Assessment and Plan (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 Review of chart demonstrates is similar to the last presentation of admission end of November. Now with persistent epileptic encephalopathy iwth steady improvements in responsiveness #epileptic encephalopathy- appears to be slowly resolving with increased responsiveness. More alert, eyes opened and looking around, following some commands, moaning, uttering yea -Hypercalcemia resolved -CT head-negative except brain volume loss which more likely goes to a dementia,MRI neg 02/17,? - -seems ok except mildly elevated protein, meningitis panel negative -B12 and TSH normal -eeg-possible status epilepticus, eeg repeated 2 days ago with similar findings, repeated 02/22 with mild slowing but no evidence of seizure -Continue IV keppra 1000mg BID. Addl one time dose 500mg given per neurology 02/22. DC acyclovir -1g Solumedrol for steroid challenge per neuro with minimal improvement in responsivenss. Pt now with mildly increased tone, slight hand squeeze on command, voluntary extremity movements.Discussed with neuro, possible lag in recovery from epilectic encephalopathy which has been treated. Completed 3 days 1g IV solumedrol with some improvement in responsiveness -initiate prolonged glucocorticoid steroid taper per Neurology: 60 mg prednisone daily times 2 weeks, 40 mg prednisone daily x2 weeks, 20 mg prednisone daily x2 weeks, 10 mg prednisone daily x2 weeks, 5 mg prednisone daily x2 weeks, 2.5 mg daily x2 weeks -transition to PEG tube for parental nutrition. General surgery possible PEG placement Saturday. Once placed, d/c PICC line -continue telemetry, neuro checks -discharge to short-term rehab facility with outpatient follow-up with Neurology in 6-8 weeks. #Right sided facial droop- resolved -initially noted 1235 today by nursing and observed on exam -Stat head CT ordered, results discussed with radiology. No acute stroke -?Lyle's paralysis #UTI- resolved -Pseudomonas/VRE in urine cultures; urine VRE; Pseudomonas in blood -/p suprapubic cather change last week due to leaking -ALETHEA resolved -follow renals/divalents iD saw the patient-recommended cefepime for 14 days (D13) (was initially also on ampicillin- dc/d) iD Followup #bacteremia secondary to UTI -Initial blood cultures showing pseudomonas/enterococcus -Continue abx as above -Repeat cultures negative ?Hypertension- reasonably controlled -hold antihypertensives? add back when appropriate Coronary artery disease -2D echo 11/06 demonstrates an LVEF between 30 and 35% -cautious fluids hold? dual antiplatelet agents due ti can not take po. above is d/w neuro and id in detail-continue current management. DVT proph- heparin Full code. Has MOLST stating DNR/DNI, will discuss again with his partner. Dispo- given pt presentation and lack of improvement following treatment for epileptic encephalopathy with anti-epileptics as well as steroid challenge, should consider hospice if no improvements in responsiveness after another 2 days after discussion with neuro. Completed steroid challenge with improvement in responsiveness. Continue daily prednisone taper as above per neurology. Transition to PEG tube for parental nutrition, discharge to [facility] for continued management of resolving epilectic encephalopathy. Discussed with HCP, Shelby, who is in agreement inpatient need : Pending PEG tube placement on Saturday with discharge to [facility] Need Neurology and Infectious Disease follow-up. General surgery for PEG tube Time Spent With Patient Time: Total time managing care of this patient today ____ minutes. Quality Stroke Does the patient have a stroke diagnosis?: No VTE Prior VTE?: No VTE Risk Level:: Medical - moderate - high VTE Device Contraindication: Treatment Not Indicated VTE Drug Contraindication: N/A - Med Ordered
[2022-02-27 11:03] VITALS: BP 158/73; PULSE 71; RESP 15; TEMP 36.7; O2SAT 98
--- NOTE | 2022-02-27 11:09 | MHC.CLN ---
F/U REVIEWED LABS PT RECEIVED TPN D15AA5 AT 70ML PER HR WITH 25ML OF 20% LIPIDS PROVIDES 1793KCALS (27KCALS/KG), 84G PROTEIN (1.3G/KG) CONTINUE CURRENT FORMULA REPLETE LYTES NEEDED PER PA: Pending PEG tube placement on Saturday with discharge to [facility] FOLLOWING WITH TEAM
[2022-02-27 15:14] VITALS: BP 148/66; PULSE 71; RESP 16; TEMP 36.7; O2SAT 98
--- NOTE | 2022-02-27 16:50 | PM.EVENT ---
Event Note Date of Service: 03/01/22 Event Note: seems to have remained stable has been afebrile abd soft, no surgical scars on upper abdomen extensively discussed with HCP Shelby technique of PEG tube placement, reviewed risks including but not limited to bleeding, infections, tube dislodgement, tube leak, bowel injury, loss of airway, wound complications, inherent risks of anesthesia she wants to proceed she understands benefits (nutrition) and alternatives (not doing PEG tube) plan to do PEG tube tomorrow Time Spent With Patient Time: Total time managing care of this patient today ____ minutes.
[2022-02-27 19:09] VITALS: BP 124/57; PULSE 69; RESP 16; TEMP 36.6; O2SAT 98
[2022-02-27 23:33] VITALS: BP 120/65; PULSE 96; RESP 18; TEMP 37.5; O2SAT 94
[2022-02-28] VITALS (11 sets, daily range): BP systolic 124–164; BP diastolic 58–70; PULSE 68–78; RESP 15–20; TEMP 36.2–37.1; O2SAT 97–100; BMI 21.0
[2022-02-28] MEDS: Fat Emulsions 20% 250 ML 25 ML IV ×2 (03:04→18:14)
[2022-02-28] MEDS: levETIRAcetam in NaCl (iso-os) 1,000 MG/100 ML PIGGYBACK 400 MG IV ×2 (05:04→16:39)
[2022-02-28] MEDS: 0.9 % Sodium Chloride Flush 3 ML SYRINGE IVFLUSH (08:49)
[2022-02-28] MEDS: methylPREDNISolone Sod Succ 125 MG/2 ML VIAL 60 MG IVPUSH (08:50)
[2022-02-28] MEDS: 0.9 % Sodium Chloride Flush 10 ML SYRINGE 5 ML IVFLUSH (08:50)
[2022-02-28] MEDS: Artificial Tears 15 ML DROPS 2 DROP EYE-BOTH (08:51)
[2022-02-28] MEDS: ceFAZolin Sodium/Dextrose,Iso 2 GM/50 ML PIGGYBACK IV (08:51)
--- NOTE | 2022-02-28 10:59 | HO.PM.IMPN ---
Subjective Subjective Date of Service: 02/28/22 Interval History: Seen in follow up for epilepsy encephalopathy ICU stepdown 02/19. No events reported over night. Responsiveness unchanged Review of Systems Review of Systems: Yes Unobtainable due to mental condition Physical Exam Vital Signs: Vital Signs: Last Vital Signs Temp 98.7 F 02/28/22 07:36 Pulse 75 02/28/22 07:36 Resp 15 02/28/22 07:36 BP 124/58 L 02/28/22 07:36 Pulse Ox 98 02/28/22 07:36 O2 Del Method 02/28/22 07:36 BMI result Body Mass Index 21.0 Constitutional - Awake and alert, eye opens looking around and making eye contact Cardiovascular - S1S2, RRR, No edema Respiratory - Normal lung expansion, Normal respiratory effort, No respiratory distress, CTA bilaterally : suprapubic catheter in place without leakage draining clear/yellow urine Gastrointestinal - NT / ND; +BS; No rebound or guarding Extremities - no calf tenderness bilaterally, no swelling Skin - Warm/Dry Neurological - PERRLA, Unable to fully assess CN function. Nonverbal today. Independently moving hands, with tight squeeze and hold on command with improved tone in UE. No voluntary movements LE, but recoils with tactile stimulation plantar surface, downgoing babinski, 2+ left patellar reflex, absent right patellar reflex. No facial droop Objective Data Active Medications Artificial Tears (Artificial Tears 15 Ml Drops) 2 drop EYE-BOTH Q4H [facility] Last Admin: 02/28/22 08:51 Dose: 2 drop Documented By: GERARD Heparin Sodium (Porcine) (Heparin Sodium,Porcine 5,000 Unit/Ml Vial) 5,000 unit SUBCUT Q12H [facility] Last Admin: 02/27/22 21:08 Dose: 5,000 unit Documented By: LANIE Hydralazine HCl (Hydralazine Hcl 20 Mg/Ml Vial) 10 mg IVPUSH Q6H PRN; Protocol PRN Reason: Sbp > 180 Levetiracetam (Keppra) 1,000 mg in 100 mls @ 400 mls/hr IV Q12H [facility] Last Infusion: 02/28/22 05:30 Dose: 0 mls/hr Documented By: LANIE Magnesium Sulfate 10 meq/Potassium Phosphate 30 mmol/Calcium Gluconate 9.3 meq/Sodium Acetate 30 meq/ Sodium Phosphate 20 mmol/ Potassium Acetate 20 meq/ Multivitamins 12 ml/ Trace Metals 1.2 ml/Amino Acids/Dextrose 1,680 mls @ 70 mls/hr IV DAILY@1800 [facility] Stop: 02/28/22 17:59 Last Admin: 02/27/22 18:18 Dose: 70 mls/hr Documented By: ARNALDO Methylprednisolone Sodium Succinate (Methylprednisolone Sod Succ 125 Mg/2 Ml Vial) 60 mg IVPUSH DAILY [facility] Stop: 03/11/22 09:01 Last Admin: 02/28/22 08:50 Dose: 60 mg Documented By: GERARD Pharmacy Consult (Consult Rx Perform Med Rec) 1 each MISCELLANE ONCE PRN PRN Reason: Consult order Sodium Chloride (0.9 % Sodium Chloride Flush 3 Ml Syringe) 3 ml IVFLUSH QSHIFT [facility] Last Admin: 02/28/22 08:49 Dose: 3 ml Documented By: GERARD Sodium Chloride (0.9 % Sodium Chloride Flush 10 Ml Syringe) 5 ml IVFLUSH TID [facility] Last Admin: 02/28/22 08:50 Dose: 5 ml Documented By: GERARD Labs CBC & Chem 7: 02/22/22 07:49 02/27/22 07:00 Assessment and Plan (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 Review of chart demonstrates is similar to the last presentation of admission end of November. Now with persistent epileptic encephalopathy iwth steady improvements in responsiveness #epileptic encephalopathy- appears to be slowly resolving with increased responsiveness. More alert, eyes opened and looking around, following some commands, moaning, uttering yea -Hypercalcemia resolved -CT head-negative except brain volume loss which more likely goes to a dementia,MRI neg 02/17,? - -seems ok except mildly elevated protein, meningitis panel negative -B12 and TSH normal -eeg-possible status epilepticus, eeg repeated with similar findings, repeated 02/22 with mild slowing but no evidence of seizure -Continue IV keppra 1000mg BID. Addl one time dose 500mg given per neurology 02/22. DC acyclovir -1g Solumedrol for steroid challenge per neuro with minimal improvement in responsivenss. Pt now with mildly increased tone, slight hand squeeze on command, voluntary extremity movements.Discussed with neuro, possible lag in recovery from epilectic encephalopathy which has been treated. Completed 3 days 1g IV solumedrol with some improvement in responsiveness -initiate prolonged glucocorticoid steroid taper per Neurology: 60 mg prednisone daily times 2 weeks, 40 mg prednisone daily x2 weeks, 20 mg prednisone daily x2 weeks, 10 mg prednisone daily x2 weeks, 5 mg prednisone daily x2 weeks, 2.5 mg daily x2 weeks -transition to PEG tube for parental nutrition. General surgery possible PEG placement today 02/28/22. Once placed, d/c PICC line/tpn -continue telemetry, neuro checks -discharge to short-term rehab facility with outpatient follow-up with Neurology in 6-8 weeks. Right sided facial droop- resolved -initially noted 1235 on 02/27/22 by nursing and observed on exam -Stat head CT ordered, results discussed with radiology. No acute stroke -?Lyle's paralysis UTI- resolved -Pseudomonas/VRE in urine cultures -s/p suprapubic cather changed due to leaking completed 14 days cefepime per ID bacteremia secondary to UTI in november 2021, this admission was negative Hypertension- reasonably controlled controlled now off meds Coronary artery disease with ischemic cardiomyopathy (chronic systolic chf) -2D echo 11/06 demonstrates an LVEF between 30 and 35% restart antiplatelet and statin when taking po DVT proph- lovenox DNR/DNI reason for continued hospitalization:peg today Time Spent With Patient Time: Total time managing care of this patient today ____ minutes. Quality Stroke Does the patient have a stroke diagnosis?: No VTE Prior VTE?: No VTE Risk Level:: Medical - moderate - high VTE Device Contraindication: Treatment Not Indicated VTE Drug Contraindication: N/A - Med Ordered
--- NOTE | 2022-02-28 13:54 | MHC.CLN ---
F/U PENDING PEG TUBE PLACEMENT TODAY PT RECEIVED TPN D15AA5 AT 70ML PER HR WITH 25ML OF 20% LIPIDS PROVIDES 1793KCALS (27KCALS/KG), 84G PROTEIN (1.3G/KG) D/C TPN WHEN PEG PLACED PER MD WHEN TF TO START; RECOMMEND JEVITY 1.0 AT 80ML/HR TO PROVIDE 2035KCALS (29KCLAS/KG), 85G PROTEIN (1.2G/KG), 1603ML FREE WATER FROM FORMULA START FORMULA AT 20ML/HR AND INCREASE BY 10ML Q 4 HRS UNTIL MAX GOAL IS ACHIEVED MONITOR TOLERANCE, RESIDUALS AND LYTES FOLLOWING WITH TEAM
--- NOTE | 2022-02-28 13:56 | HO.ANESPROP2 ---
[facility] Active Problems Active Problems: All Active Problems (Updated 02/17/22 @ 11:18 by Jyoti Mari MD) Non-convulsive status epilepticus (Acute) Status epilepticus (Acute) Epileptic encephalopathy (Acute) Seizures (Acute) Encephalopathy (Acute) Dementia with behavioral disturbance (Acute) Urinary retention with incomplete bladder emptying (Acute) Dementia with psychosis (Acute) Bladder spasm (Acute) Coronary artery disease (Acute) Accelerated essential hypertension (Acute) UTI (urinary tract infection) (Acute) Sepsis secondary to UTI (Acute) Acute urinary retention (Acute) ALETHEA (acute kidney injury) (Acute) Past Medical History Medical History Accelerated essential hypertension 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 Mother No problems noted. Family history of problems with anesthesia: No Surgical History Surgical History History of surgery History of Problems with Anesthesia: No Social History Social History Household Members: Significant Other [facility]: [facility] Do you presently have visiting nurse or other home services: Yes Alcohol intake: never Patient Tobacco Use Status: Never used Tobacco e-Cigarette/Vaping Use: Never Used Second Hand Smoke Exposure: No Advance Directives Date on File: 09/21/21 service: No Current occupational status: unemployed and retired Meds Allergies Allergy/AdvReac Type Severity Reaction Status Date / Time No Known Allergies Allergy Verified 10/25/21 08:15 Active Medications: Current Medications Artificial Tears (Artificial Tears 15 Ml Drops) 2 drop EYE-BOTH Q4H [facility] Last Admin: 02/28/22 12:21 Dose: Not Given Enoxaparin Sodium (Enoxaparin Sodium 40 Mg/0.4 Ml Syringe) 40 mg SUBCUT Q24H MIKKI Hydralazine HCl (Hydralazine Hcl 20 Mg/Ml Vial) 10 mg IVPUSH Q6H PRN; Protocol PRN Reason: Sbp > 180 Levetiracetam (Keppra) 1,000 mg in 100 mls @ 400 mls/hr IV Q12H [facility] Last Infusion: 02/28/22 05:30 Dose: Infused Magnesium Sulfate 10 meq/Potassium Phosphate 30 mmol/Calcium Gluconate 9.3 meq/Sodium Acetate 30 meq/ Sodium Phosphate 20 mmol/ Potassium Acetate 20 meq/ Multivitamins 12 ml/ Trace Metals 1.2 ml/Amino Acids/Dextrose 1,680 mls @ 70 mls/hr IV DAILY@1800 [facility] Stop: 02/28/22 17:59 Last Admin: 02/27/22 18:18 Dose: 70 mls/hr Magnesium Sulfate 10 meq/Potassium Phosphate 30 mmol/Calcium Gluconate 9.3 meq/Sodium Acetate 30 meq/ Sodium Phosphate 20 mmol/ Potassium Acetate 20 meq/ Multivitamins 12 ml/ Trace Metals 1.2 ml/Amino Acids/Dextrose 1,680 mls @ 70 mls/hr IV DAILY@1800 [facility] Stop: 03/01/22 17:59 Fat Emulsion Intravenous (Intralipid) 150 mls @ 25 mls/hr IV DAILY@0000,1800 [facility] Stop: 03/01/22 05:59 Methylprednisolone Sodium Succinate (Methylprednisolone Sod Succ 125 Mg/2 Ml Vial) 60 mg IVPUSH DAILY [facility] Stop: 03/11/22 09:01 Last Admin: 02/28/22 08:50 Dose: 60 mg Pharmacy Consult (Consult Rx Perform Med Rec) 1 each MISCELLANE ONCE PRN PRN Reason: Consult order Sodium Chloride (0.9 % Sodium Chloride Flush 3 Ml Syringe) 3 ml IVFLUSH QSHIFT [facility] Last Admin: 02/28/22 08:49 Dose: 3 ml Sodium Chloride (0.9 % Sodium Chloride Flush 10 Ml Syringe) 5 ml IVFLUSH TID [facility] Last Admin: 02/28/22 08:50 Dose: 5 ml Home Medications Medication Instructions Recorded Confirmed Last Taken Type aspirin 81 mg tablet,delayed 81 mg PO DAILY 12/12/21 02/07/22 02/07/22 History release lisinopril 5 mg tablet 5 mg PO DAILY 12/12/21 02/07/22 02/07/22 History rosuvastatin 10 mg tablet 1 tab PO BEDTIME 12/12/21 02/07/22 02/06/22 History ticagrelor 90 mg tablet 90 mg PO BID 12/12/21 02/07/22 02/06/22 History Exam Exam Date and Time: February 28, 2022 1356 Height,Weight and Vital Signs: Height 6 ft Weight 70.5 kg Last Vital Signs Temp 98.1 F 02/28/22 12:01 Pulse 72 02/28/22 12:01 Resp 20 02/28/22 12:01 BP 159/61 H 02/28/22 12:01 Pulse Ox 98 02/28/22 12:01 O2 Del Method 02/28/22 12:01 Pertinent Lab Results Pertinent Lab Results: Laboratory Tests 02/07/22 02/07/22 02/07/22 14:16 14:20 14:20 WBC 5.5 RBC 2.89 L Hgb 8.1 L Hct 25.4 L MCV 87.9 MCH 28.0 MCHC 31.9 RDW 15.7 Plt Count 238 MPV 8.6 L Immature Gran % (Auto) 0.5 H Neut % (Auto) 71.6 Lymph % (Auto) 8.9 L Elbert % (Auto) 15.7 H Eos % (Auto) 2.9 Baso % (Auto) 0.4 Lymph # (Auto) 0.5 L [place]bert # (Auto) 0.9 Eos # (Auto) 0.2 Baso # (Auto) 0.0 Abs Immat Gran (auto) 0.03 Absolute Neuts (auto) 3.9 Absolute Nucleated RBC 0.000 Nucleated RBC % (auto) 0.0 PT INR APTT O2 Saturation ABG pH at Pt Temp ABG pCO2 at Pt Temp ABG pO2 at Pt Temp ABG HCO3 ABG Base Excess (Actual) VBG pH VBG pCO2 VBG pO2 VBG HCO3 VBG O2 Saturation VBG Base Excess Sodium 135 Potassium 4.3 D Chloride 103 Carbon Dioxide 21 L Anion Gap 15 BUN 37 H D Creatinine 3.04 H Estim Creat Clear Calc 18.9 Estimated GFR 20 POC Glucose Random Glucose 124 H Fasting Glucose Lactic Acid Calcium 10.5 H D Ionized Calcium Phosphorus Magnesium 2.1 Total Bilirubin 1.1 H Direct Bilirubin AST 9 D ALT < 6 Alkaline Phosphatase 62 Ammonia Troponin I High Sens Total Protein 7.0 Albumin 3.1 L Triglycerides Vitamin B12 25-OH Vitamin D Total TSH PTH Intact Calcium (PTH Intact) PTH Related Protein Urine Color Urine Appearance Urine pH Ur Specific [place] Urine Protein Urine Glucose (UA) Urine Ketones Urine Blood Urine Nitrite Ur Leukocyte Esterase Urine RBC Urine WBC Ur Squamous Epith Cells Urine Bacteria Hyaline Casts Urine Yeast CSF Tube Number CSF Volume CSF Appearance CSF Color CSF WBC CSF RBC CSF Lymphocytes CSF Appearance (b) CSF Glucose CSF Total Protein CSF C.neoform/gat PCR CSF CMV DNA (PCR) CSF Enterovirus (PCR) CSF E. coli K1 (PCR) CSF H. influenzae (PCR) CSF HSV I (PCR) CSF HSV II (PCR) CSF HHV 6 (PCR) CSF L.monocytogenes PCR CSF N. meningitidis PCR CSF Parechovirus (PCR) CSF S. agalactiae (PCR) CSF S. pneumoniae (PCR) CSF VZV (PCR) Influenza Type A (PCR) NEGATIVE Influenza Type B (PCR) NEGATIVE RSV RNA Qual (PCR) NEGATIVE SARS-CoV-2 RNA (RT-PCR) NEGATIVE Blood Type Antibody Screen Crossmatch 02/07/22 02/07/22 02/07/22 14:20 15:14 16:50 WBC RBC Hgb Hct MCV MCH MCHC RDW Plt Count MPV Immature Gran % (Auto) Neut % (Auto) Lymph % (Auto) Elbert % (Auto) Eos % (Auto) Baso % (Auto) Lymph # (Auto) [place]bert # (Auto) Eos # (Auto) Baso # (Auto) Abs Immat Gran (auto) Absolute Neuts (auto) Absolute Nucleated RBC Nucleated RBC % (auto) PT INR APTT O2 Saturation ABG pH at Pt Temp ABG pCO2 at Pt Temp ABG pO2 at Pt Temp ABG HCO3 ABG Base Excess (Actual) VBG pH VBG pCO2 VBG pO2 VBG HCO3 VBG O2 Saturation VBG Base Excess Sodium Potassium Chloride Carbon Dioxide Anion Gap BUN Creatinine Estim Creat Clear Calc Estimated GFR POC Glucose Random Glucose Fasting Glucose Lactic Acid 0.8 Calcium Ionized Calcium Phosphorus Magnesium Total Bilirubin Direct Bilirubin AST ALT Alkaline Phosphatase Ammonia Troponin I High Sens 10.7 D Total Protein Albumin Triglycerides Vitamin B12 25-OH Vitamin D Total TSH PTH Intact Calcium (PTH Intact) PTH Related Protein Urine Color Yellow Urine Appearance Turbid Urine pH 8.5 Ur Specific [place] 1.010 Urine Protein 30 (1+) H Urine Glucose (UA) Negative Urine Ketones Negative Urine Blood Small (1+) H Urine Nitrite Negative Ur Leukocyte Esterase Large (3+) H Urine RBC 3-5 H Urine WBC >50 H Ur Squamous Epith Cells 6-10 Urine Bacteria 4+ Hyaline Casts 3-5 Urine Yeast Present CSF Tube Number CSF Volume CSF Appearance CSF Color CSF WBC CSF RBC CSF Lymphocytes CSF Appearance (b) CSF Glucose CSF Total Protein CSF C.neoform/gat PCR CSF CMV DNA (PCR) CSF Enterovirus (PCR) CSF E. coli K1 (PCR) CSF H. influenzae (PCR) CSF HSV I (PCR) CSF HSV II (PCR) CSF HHV 6 (PCR) CSF L.monocytogenes PCR CSF N. meningitidis PCR CSF Parechovirus (PCR) CSF S. agalactiae (PCR) CSF S. pneumoniae (PCR) CSF VZV (PCR) Influenza Type A (PCR) Influenza Type B (PCR) RSV RNA Qual (PCR) SARS-CoV-2 RNA (RT-PCR) Blood Type Antibody Screen Crossmatch 02/08/22 02/08/22 02/08/22 05:25 05:25 09:26 WBC 3.9 L RBC 2.59 L Hgb 7.4 L Hct 22.9 L MCV 88.4 MCH 28.6 MCHC 32.3 RDW 15.7 Plt Count 224 MPV 8.8 L Immature Gran % (Auto) 0.5 H Neut % (Auto) 61.9 Lymph % (Auto) 13.7 L Elbert % (Auto) 17.8 H Eos % (Auto) 5.6 H Baso % (Auto) 0.5 Lymph # (Auto) 0.5 L [place] # (Auto) 0.7 Eos # (Auto) 0.2 Baso # (Auto) 0.0 Abs Immat Gran (auto) 0.02 Absolute Neuts (auto) 2.4 Absolute Nucleated RBC 0.000 Nucleated RBC % (auto) 0.0 PT INR APTT O2 Saturation ABG pH at Pt Temp ABG pCO2 at Pt Temp ABG pO2 at Pt Temp ABG HCO3 ABG Base Excess (Actual) VBG pH VBG pCO2 VBG pO2 VBG HCO3 VBG O2 Saturation VBG Base Excess Sodium 140 Potassium 4.6 Chloride 111 H Carbon Dioxide 22 Anion Gap 12 BUN 35 H Creatinine 2.49 H Estim Creat Clear Calc 23.4 Estimated GFR 25 POC Glucose Random Glucose Fasting Glucose 92 Lactic Acid Calcium 9.8 D Ionized Calcium Phosphorus Magnesium Total Bilirubin 1.1 H Direct Bilirubin AST 6 ALT < 6 Alkaline Phosphatase 50 Ammonia Troponin I High Sens Total Protein 6.1 L Albumin 2.6 L Triglycerides Vitamin B12 25-OH Vitamin D Total TSH PTH Intact Calcium (PTH Intact) PTH Related Protein Urine Color Urine Appearance Urine pH Ur Specific [place] Urine Protein Urine Glucose (UA) Urine Ketones Urine Blood Urine Nitrite Ur Leukocyte Esterase Urine RBC Urine WBC Ur Squamous Epith Cells Urine Bacteria Hyaline Casts Urine Yeast CSF Tube Number CSF Volume CSF Appearance CSF Color CSF WBC CSF RBC CSF Lymphocytes CSF Appearance (b) CSF Glucose CSF Total Protein CSF C.neoform/gat PCR CSF CMV DNA (PCR) CSF Enterovirus (PCR) CSF E. coli K1 (PCR) CSF H. influenzae (PCR) CSF HSV I (PCR) CSF HSV II (PCR) CSF HHV 6 (PCR) CSF L.monocytogenes PCR CSF N. meningitidis PCR CSF Parechovirus (PCR) CSF S. agalactiae (PCR) CSF S. pneumoniae (PCR) CSF VZV (PCR) Influenza Type A (PCR) Influenza Type B (PCR) RSV RNA Qual (PCR) SARS-CoV-2 RNA (RT-PCR) Blood Type AB Positive Antibody Screen NEGATIVE Crossmatch See Detail 02/09/22 02/09/22 02/10/22 05:23 05:23 05:52 WBC 5.1 4.5 L RBC 3.03 L 3.09 L Hgb 8.7 L 8.9 L Hct 27.2 L 27.6 L MCV 89.8 89.3 MCH 28.7 28.8 MCHC 32.0 32.2 RDW 15.7 15.9 Plt Count 253 267 MPV 8.7 L 8.8 L Immature Gran % (Auto) 0.6 H 0.4 Neut % (Auto) 62.6 64.6 Lymph % (Auto) 15.4 L 15.5 L Elbert % (Auto) 15.8 H 15.9 H Eos % (Auto) 5.0 H 2.7 Baso % (Auto) 0.6 0.9 Lymph # (Auto) 0.8 L 0.7 L [place]bert # (Auto) 0.8 0.7 Eos # (Auto) 0.3 0.1 Baso # (Auto) 0.0 0.0 Abs Immat Gran (auto) 0.03 0.02 Absolute Neuts (auto) 3.2 2.9 Absolute Nucleated RBC 0.000 0.000 Nucleated RBC % (auto) 0.0 0.0 PT INR APTT O2 Saturation ABG pH at Pt Temp ABG pCO2 at Pt Temp ABG pO2 at Pt Temp ABG HCO3 ABG Base Excess (Actual) VBG pH VBG pCO2 VBG pO2 VBG HCO3 VBG O2 Saturation VBG Base Excess Sodium 139 Potassium 4.5 Chloride 112 H Carbon Dioxide 18 L Anion Gap 14 BUN 33 H Creatinine 2.35 H Estim Creat Clear Calc 24.8 Estimated GFR 27 POC Glucose Random Glucose Fasting Glucose 92 Lactic Acid Calcium 10.2 Ionized Calcium Phosphorus Magnesium Total Bilirubin 1.6 H Direct Bilirubin AST 10 ALT < 6 Alkaline Phosphatase 51 Ammonia Troponin I High Sens Total Protein 6.6 Albumin 2.7 L Triglycerides Vitamin B12 25-OH Vitamin D Total TSH PTH Intact Calcium (PTH Intact) PTH Related Protein Urine Color Urine Appearance Urine pH Ur Specific [place] Urine Protein Urine Glucose (UA) Urine Ketones Urine Blood Urine Nitrite Ur Leukocyte Esterase Urine RBC Urine WBC Ur Squamous Epith Cells Urine Bacteria Hyaline Casts Urine Yeast CSF Tube Number CSF Volume CSF Appearance CSF Color CSF WBC CSF RBC CSF Lymphocytes CSF Appearance (b) CSF Glucose CSF Total Protein CSF C.neoform/gat PCR CSF CMV DNA (PCR) CSF Enterovirus (PCR) CSF E. coli K1 (PCR) CSF H. influenzae (PCR) CSF HSV I (PCR) CSF HSV II (PCR) CSF HHV 6 (PCR) CSF L.monocytogenes PCR CSF N. meningitidis PCR CSF Parechovirus (PCR) CSF S. agalactiae (PCR) CSF S. pneumoniae (PCR) CSF VZV (PCR) Influenza Type A (PCR) Influenza Type B (PCR) RSV RNA Qual (PCR) SARS-CoV-2 RNA (RT-PCR) Blood Type Antibody Screen Crossmatch 02/10/22 02/11/22 02/11/22 05:52 05:52 05:52 WBC 6.6 RBC 3.20 L Hgb 9.5 L Hct 28.5 L MCV 89.1 MCH 29.7 MCHC 33.3 RDW 15.8 Plt Count 269 MPV 8.9 L Immature Gran % (Auto) 0.3 Neut % (Auto) 70.5 Lymph % (Auto) 11.9 L Elbert % (Auto) 14.0 H Eos % (Auto) 2.7 Baso % (Auto) 0.6 Lymph # (Auto) 0.8 L [place] # (Auto) 0.9 Eos # (Auto) 0.2 Baso # (Auto) 0.0 Abs Immat Gran (auto) 0.02 Absolute Neuts (auto) 4.7 Absolute Nucleated RBC 0.000 Nucleated RBC % (auto) 0.0 PT INR APTT O2 Saturation ABG pH at Pt Temp ABG pCO2 at Pt Temp ABG pO2 at Pt Temp ABG HCO3 ABG Base Excess (Actual) VBG pH VBG pCO2 VBG pO2 VBG HCO3 VBG O2 Saturation VBG Base Excess Sodium 139 140 Potassium 3.9 3.5 Chloride 111 H 112 H Carbon Dioxide 18 L 17 L Anion Gap 14 15 BUN 35 H 31 H Creatinine 2.04 H 2.20 H Estim Creat Clear Calc 28.6 26.5 Estimated GFR 31 29 POC Glucose Random Glucose Fasting Glucose 93 136 H Lactic Acid Calcium 10.3 H 10.9 H Ionized Calcium Phosphorus Magnesium Total Bilirubin 1.3 H 1.1 H Direct Bilirubin AST 9 9 ALT 6 < 6 Alkaline Phosphatase 51 52 Ammonia Troponin I High Sens Total Protein 6.6 7.1 Albumin 2.8 L 3.0 L Triglycerides Vitamin B12 25-OH Vitamin D Total TSH PTH Intact Calcium (PTH Intact) PTH Related Protein Urine Color Urine Appearance Urine pH Ur Specific [place] Urine Protein Urine Glucose (UA) Urine Ketones Urine Blood Urine Nitrite Ur Leukocyte Esterase Urine RBC Urine WBC Ur Squamous Epith Cells Urine Bacteria Hyaline Casts Urine Yeast CSF Tube Number CSF Volume CSF Appearance CSF Color CSF WBC CSF RBC CSF Lymphocytes CSF Appearance (b) CSF Glucose CSF Total Protein CSF C.neoform/gat PCR CSF CMV DNA (PCR) CSF Enterovirus (PCR) CSF E. coli K1 (PCR) CSF H. influenzae (PCR) CSF HSV I (PCR) CSF HSV II (PCR) CSF HHV 6 (PCR) CSF L.monocytogenes PCR CSF N. meningitidis PCR CSF Parechovirus (PCR) CSF S. agalactiae (PCR) CSF S. pneumoniae (PCR) CSF VZV (PCR) Influenza Type A (PCR) Influenza Type B (PCR) RSV RNA Qual (PCR) SARS-CoV-2 RNA (RT-PCR) Blood Type Antibody Screen Crossmatch 02/12/22 02/12/22 02/13/22 10:31 10:31 05:29 WBC 3.6 L 5.0 RBC 2.94 L 3.24 L Hgb 8.6 L 9.2 L Hct 26.5 L 29.8 L MCV 90.1 92.0 MCH 29.3 28.4 MCHC 32.5 30.9 L RDW 16.0 15.9 Plt Count 201 D 221 MPV 8.5 L 8.7 L Immature Gran % (Auto) 0.6 H 0.4 Neut % (Auto) 57.2 64.7 Lymph % (Auto) 19.6 L 13.9 L [place]bert % (Auto) 16.2 H 14.1 H Eos % (Auto) 5.6 H 6.3 H Baso % (Auto) 0.8 0.6 Lymph # (Auto) 0.7 L 0.7 L [place] # (Auto) 0.6 0.7 Eos # (Auto) 0.2 0.3 Baso # (Auto) 0.0 0.0 Abs Immat Gran (auto) 0.02 0.02 Absolute Neuts (auto) 2.0 3.3 Absolute Nucleated RBC 0.000 0.000 Nucleated RBC % (auto) 0.0 0.0 PT INR APTT O2 Saturation ABG pH at Pt Temp ABG pCO2 at Pt Temp ABG pO2 at Pt Temp ABG HCO3 ABG Base Excess (Actual) VBG pH VBG pCO2 VBG pO2 VBG HCO3 VBG O2 Saturation VBG Base Excess Sodium 143 Potassium 3.5 Chloride 113 H Carbon Dioxide 22 Anion Gap 12 BUN 27 H Creatinine 2.01 H Estim Creat Clear Calc 29.1 Estimated GFR 32 POC Glucose Random Glucose Fasting Glucose 103 H Lactic Acid Calcium 10.2 D Ionized Calcium Phosphorus Magnesium Total Bilirubin 1.0 Direct Bilirubin AST 9 ALT 6 Alkaline Phosphatase 50 Ammonia Troponin I High Sens Total Protein 6.3 L Albumin 2.7 L Triglycerides Vitamin B12 25-OH Vitamin D Total TSH PTH Intact Calcium (PTH Intact) PTH Related Protein Urine Color Urine Appearance Urine pH Ur Specific [place] Urine Protein Urine Glucose (UA) Urine Ketones Urine Blood Urine Nitrite Ur Leukocyte Esterase Urine RBC Urine WBC Ur Squamous Epith Cells Urine Bacteria Hyaline Casts Urine Yeast CSF Tube Number CSF Volume CSF Appearance CSF Color CSF WBC CSF RBC CSF Lymphocytes CSF Appearance (b) CSF Glucose CSF Total Protein CSF C.neoform/gat PCR CSF CMV DNA (PCR) CSF Enterovirus (PCR) CSF E. coli K1 (PCR) CSF H. influenzae (PCR) CSF HSV I (PCR) CSF HSV II (PCR) CSF HHV 6 (PCR) CSF L.monocytogenes PCR CSF N. meningitidis PCR CSF Parechovirus (PCR) CSF S. agalactiae (PCR) CSF S. pneumoniae (PCR) CSF VZV (PCR) Influenza Type A (PCR) Influenza Type B (PCR) RSV RNA Qual (PCR) SARS-CoV-2 RNA (RT-PCR) Blood Type Antibody Screen Crossmatch 02/13/22 02/15/22 02/15/22 05:29 06:32 06:32 WBC RBC Hgb Hct MCV MCH MCHC RDW Plt Count MPV Immature Gran % (Auto) Neut % (Auto) Lymph % (Auto) [place] % (Auto) Eos % (Auto) Baso % (Auto) Lymph # (Auto) [place] # (Auto) Eos # (Auto) Baso # (Auto) Abs Immat Gran (auto) Absolute Neuts (auto) Absolute Nucleated RBC Nucleated RBC % (auto) PT INR APTT O2 Saturation ABG pH at Pt Temp ABG pCO2 at Pt Temp ABG pO2 at Pt Temp ABG HCO3 ABG Base Excess (Actual) VBG pH VBG pCO2 VBG pO2 VBG HCO3 VBG O2 Saturation VBG Base Excess Sodium 141 140 Potassium 3.5 3.4 Chloride 113 H 109 H Carbon Dioxide 22 25 Anion Gap 10 L 9 L BUN 24 H 24 H Creatinine 1.76 H 1.68 H Estim Creat Clear Calc 33.2 34.8 Estimated GFR 37 39 POC Glucose Random Glucose 86 Fasting Glucose 108 H Lactic Acid Calcium 10.4 H 10.5 H Ionized Calcium Phosphorus Magnesium 2.0 Total Bilirubin 1.0 1.1 H Direct Bilirubin 0.4 AST 8 9 ALT < 6 < 6 Alkaline Phosphatase 51 51 Ammonia Troponin I High Sens Total Protein 6.5 6.5 Albumin 2.6 L 2.7 L Triglycerides Vitamin B12 25-OH Vitamin D Total TSH 1.65 PTH Intact 7 L Calcium (PTH Intact) 10.5 H PTH Related Protein Urine Color Urine Appearance Urine pH Ur Specific [place] Urine Protein Urine Glucose (UA) Urine Ketones Urine Blood Urine Nitrite Ur Leukocyte Esterase Urine RBC Urine WBC Ur Squamous Epith Cells Urine Bacteria Hyaline Casts Urine Yeast CSF Tube Number CSF Volume CSF Appearance CSF Color CSF WBC CSF RBC CSF Lymphocytes CSF Appearance (b) CSF Glucose CSF Total Protein CSF C.neoform/gat PCR CSF CMV DNA (PCR) CSF Enterovirus (PCR) CSF E. coli K1 (PCR) CSF H. influenzae (PCR) CSF HSV I (PCR) CSF HSV II (PCR) CSF HHV 6 (PCR) CSF L.monocytogenes PCR CSF N. meningitidis PCR CSF Parechovirus (PCR) CSF S. agalactiae (PCR) CSF S. pneumoniae (PCR) CSF VZV (PCR) Influenza Type A (PCR) Influenza Type B (PCR) RSV RNA Qual (PCR) SARS-CoV-2 RNA (RT-PCR) Blood Type Antibody Screen Crossmatch 02/15/22 02/15/22 02/16/22 06:32 13:41 08:02 WBC RBC Hgb Hct MCV MCH MCHC RDW Plt Count MPV Immature Gran % (Auto) Neut % (Auto) Lymph % (Auto) [place] % (Auto) Eos % (Auto) Baso % (Auto) Lymph # (Auto) [place] # (Auto) Eos # (Auto) Baso # (Auto) Abs Immat Gran (auto) Absolute Neuts (auto) Absolute Nucleated RBC Nucleated RBC % (auto) PT INR APTT O2 Saturation ABG pH at Pt Temp ABG pCO2 at Pt Temp ABG pO2 at Pt Temp ABG HCO3 ABG Base Excess (Actual) VBG pH VBG pCO2 VBG pO2 VBG HCO3 VBG O2 Saturation VBG Base Excess Sodium 142 Potassium 4.7 D Chloride 113 H Carbon Dioxide 18 L Anion Gap 16 BUN 26 H Creatinine 1.72 H Estim Creat Clear Calc 34.0 Estimated GFR 38 POC Glucose Random Glucose 71 D Fasting Glucose Lactic Acid Calcium 9.7 D Ionized Calcium Phosphorus 2.6 L Magnesium 2.2 Total Bilirubin Direct Bilirubin AST ALT Alkaline Phosphatase Ammonia 22 Troponin I High Sens Total Protein Albumin 2.7 L Triglycerides Vitamin B12 443 25-OH Vitamin D Total TSH PTH Intact Calcium (PTH Intact) PTH Related Protein Urine Color Urine Appearance Urine pH Ur Specific [place] Urine Protein Urine Glucose (UA) Urine Ketones Urine Blood Urine Nitrite Ur Leukocyte Esterase Urine RBC Urine WBC Ur Squamous Epith Cells Urine Bacteria Hyaline Casts Urine Yeast CSF Tube Number CSF Volume CSF Appearance CSF Color CSF WBC CSF RBC CSF Lymphocytes CSF Appearance (b) CSF Glucose CSF Total Protein CSF C.neoform/gat PCR CSF CMV DNA (PCR) CSF Enterovirus (PCR) CSF E. coli K1 (PCR) CSF H. influenzae (PCR) CSF HSV I (PCR) CSF HSV II (PCR) CSF HHV 6 (PCR) CSF L.monocytogenes PCR CSF N. meningitidis PCR CSF Parechovirus (PCR) CSF S. agalactiae (PCR) CSF S. pneumoniae (PCR) CSF VZV (PCR) Influenza Type A (PCR) Influenza Type B (PCR) RSV RNA Qual (PCR) SARS-CoV-2 RNA (RT-PCR) Blood Type Antibody Screen Crossmatch 02/16/22 02/17/22 02/17/22 14:43 06:10 06:10 WBC 4.0 L RBC 3.03 L Hgb 8.8 L Hct 27.3 L MCV 90.1 MCH 29.0 MCHC 32.2 RDW 15.5 Plt Count 216 MPV 9.1 L Immature Gran % (Auto) Neut % (Auto) Lymph % (Auto) [place] % (Auto) Eos % (Auto) Baso % (Auto) Lymph # (Auto) [place] # (Auto) Eos # (Auto) Baso # (Auto) Abs Immat Gran (auto) Absolute Neuts (auto) Absolute Nucleated RBC 0.000 Nucleated RBC % (auto) 0.0 PT INR APTT O2 Saturation ABG pH at Pt Temp ABG pCO2 at Pt Temp ABG pO2 at Pt Temp ABG HCO3 ABG Base Excess (Actual) VBG pH VBG pCO2 VBG pO2 VBG HCO3 VBG O2 Saturation VBG Base Excess Sodium 138 Potassium 3.4 D Chloride 109 H Carbon Dioxide 22 Anion Gap 10 L BUN 25 H Creatinine 1.57 H Estim Creat Clear Calc 37.2 Estimated GFR 43 POC Glucose 67 Random Glucose 91 Fasting Glucose Lactic Acid Calcium 9.5 Ionized Calcium Phosphorus Magnesium Total Bilirubin Direct Bilirubin AST ALT Alkaline Phosphatase Ammonia Troponin I High Sens Total Protein Albumin Triglycerides Vitamin B12 25-OH Vitamin D Total TSH PTH Intact Calcium (PTH Intact) PTH Related Protein Urine Color Urine Appearance Urine pH Ur Specific [place] Urine Protein Urine Glucose (UA) Urine Ketones Urine Blood Urine Nitrite Ur Leukocyte Esterase Urine RBC Urine WBC Ur Squamous Epith Cells Urine Bacteria Hyaline Casts Urine Yeast CSF Tube Number CSF Volume CSF Appearance CSF Color CSF WBC CSF RBC CSF Lymphocytes CSF Appearance (b) CSF Glucose CSF Total Protein CSF C.neoform/gat PCR CSF CMV DNA (PCR) CSF Enterovirus (PCR) CSF E. coli K1 (PCR) CSF H. influenzae (PCR) CSF HSV I (PCR) CSF HSV II (PCR) CSF HHV 6 (PCR) CSF L.monocytogenes PCR CSF N. meningitidis PCR CSF Parechovirus (PCR) CSF S. agalactiae (PCR) CSF S. pneumoniae (PCR) CSF VZV (PCR) Influenza Type A (PCR) Influenza Type B (PCR) RSV RNA Qual (PCR) SARS-CoV-2 RNA (RT-PCR) Blood Type Antibody Screen Crossmatch 02/17/22 02/17/22 02/17/22 06:10 10:22 15:21 WBC RBC Hgb Hct MCV MCH MCHC RDW Plt Count MPV Immature Gran % (Auto) Neut % (Auto) Lymph % (Auto) [place] % (Auto) Eos % (Auto) Baso % (Auto) Lymph # (Auto) [place] # (Auto) Eos # (Auto) Baso # (Auto) Abs Immat Gran (auto) Absolute Neuts (auto) Absolute Nucleated RBC Nucleated RBC % (auto) PT 12.9 INR 1.1 APTT O2 Saturation 99.0 ABG pH at Pt Temp 7.43 ABG pCO2 at Pt Temp 33 ABG pO2 at Pt Temp 99 ABG HCO3 22 ABG Base Excess (Actual) -1.5 VBG pH VBG pCO2 VBG pO2 VBG HCO3 VBG O2 Saturation VBG Base Excess Sodium Potassium Chloride Carbon Dioxide Anion Gap BUN Creatinine Estim Creat Clear Calc Estimated GFR POC Glucose Random Glucose Fasting Glucose Lactic Acid Calcium Ionized Calcium Phosphorus 2.5 L Magnesium 2.0 Total Bilirubin Direct Bilirubin AST ALT Alkaline Phosphatase Ammonia Troponin I High Sens Total Protein Albumin 2.5 L Triglycerides 112 Vitamin B12 25-OH Vitamin D Total TSH PTH Intact Calcium (PTH Intact) PTH Related Protein Urine Color Urine Appearance Urine pH Ur Specific [place] Urine Protein Urine Glucose (UA) Urine Ketones Urine Blood Urine Nitrite Ur Leukocyte Esterase Urine RBC Urine WBC Ur Squamous Epith Cells Urine Bacteria Hyaline Casts Urine Yeast CSF Tube Number CSF Volume CSF Appearance CSF Color CSF WBC CSF RBC CSF Lymphocytes CSF Appearance (b) CSF Glucose CSF Total Protein CSF C.neoform/gat PCR CSF CMV DNA (PCR) CSF Enterovirus (PCR) CSF E. coli K1 (PCR) CSF H. influenzae (PCR) CSF HSV I (PCR) CSF HSV II (PCR) CSF HHV 6 (PCR) CSF L.monocytogenes PCR CSF N. meningitidis PCR CSF Parechovirus (PCR) CSF S. agalactiae (PCR) CSF S. pneumoniae (PCR) CSF VZV (PCR) Influenza Type A (PCR) Influenza Type B (PCR) RSV RNA Qual (PCR) SARS-CoV-2 RNA (RT-PCR) Blood Type Antibody Screen Crossmatch 02/18/22 02/18/22 02/19/22 05:34 17:19 05:13 WBC 4.0 L RBC 2.71 L Hgb 7.8 L Hct 24.0 L MCV 88.6 MCH 28.8 MCHC 32.5 RDW 15.5 Plt Count 188 MPV 9.3 L Immature Gran % (Auto) 0.3 Neut % (Auto) 56.3 Lymph % (Auto) 20.8 [place]bert % (Auto) 14.3 H Eos % (Auto) 7.5 H Baso % (Auto) 0.8 Lymph # (Auto) 0.8 L Elbert # (Auto) 0.6 Eos # (Auto) 0.3 Baso # (Auto) 0.0 Abs Immat Gran (auto) 0.01 Absolute Neuts (auto) 2.3 Absolute Nucleated RBC 0.000 Nucleated RBC % (auto) 0.0 PT INR APTT O2 Saturation ABG pH at Pt Temp ABG pCO2 at Pt Temp ABG pO2 at Pt Temp ABG HCO3 ABG Base Excess (Actual) VBG pH VBG pCO2 VBG pO2 VBG HCO3 VBG O2 Saturation VBG Base Excess Sodium 144 Potassium 3.4 Chloride 112 H Carbon Dioxide 22 Anion Gap 13 BUN 24 H Creatinine 1.43 H Estim Creat Clear Calc 40.2 Estimated GFR 47 POC Glucose Random Glucose 128 H D Fasting Glucose Lactic Acid Calcium 9.3 Ionized Calcium Phosphorus 2.4 L Magnesium 2.0 Total Bilirubin Direct Bilirubin AST ALT Alkaline Phosphatase Ammonia Troponin I High Sens Total Protein Albumin 2.8 L Triglycerides Vitamin B12 25-OH Vitamin D Total TSH PTH Intact Calcium (PTH Intact) PTH Related Protein 15 Urine Color Urine Appearance Urine pH Ur Specific [place] Urine Protein Urine Glucose (UA) Urine Ketones Urine Blood Urine Nitrite Ur Leukocyte Esterase Urine RBC Urine WBC Ur Squamous Epith Cells Urine Bacteria Hyaline Casts Urine Yeast CSF Tube Number CSF Volume CSF Appearance CSF Color CSF WBC CSF RBC CSF Lymphocytes CSF Appearance (b) CSF Glucose CSF Total Protein CSF C.neoform/gat PCR CSF CMV DNA (PCR) CSF Enterovirus (PCR) CSF E. coli K1 (PCR) CSF H. influenzae (PCR) CSF HSV I (PCR) CSF HSV II (PCR) CSF HHV 6 (PCR) CSF L.monocytogenes PCR CSF N. meningitidis PCR CSF Parechovirus (PCR) CSF S. agalactiae (PCR) CSF S. pneumoniae (PCR) CSF VZV (PCR) Influenza Type A (PCR) Influenza Type B (PCR) RSV RNA Qual (PCR) SARS-CoV-2 RNA (RT-PCR) Blood Type Antibody Screen Crossmatch 02/19/22 02/19/22 02/19/22 05:13 05:13 05:14 WBC RBC Hgb Hct MCV MCH MCHC RDW Plt Count MPV Immature Gran % (Auto) Neut % (Auto) Lymph % (Auto) Elbert % (Auto) Eos % (Auto) Baso % (Auto) Lymph # (Auto) Elbert # (Auto) Eos # (Auto) Baso # (Auto) Abs Immat Gran (auto) Absolute Neuts (auto) Absolute Nucleated RBC Nucleated RBC % (auto) PT INR APTT O2 Saturation ABG pH at Pt Temp ABG pCO2 at Pt Temp ABG pO2 at Pt Temp ABG HCO3 ABG Base Excess (Actual) VBG pH 7.45 H VBG pCO2 34 VBG pO2 42 VBG HCO3 24 VBG O2 Saturation 71.0 VBG Base Excess 0.6 Sodium 144 Potassium 3.6 Chloride 113 H Carbon Dioxide 25 Anion Gap 10 L BUN 25 H Creatinine 1.28 Estim Creat Clear Calc 44.9 Estimated GFR 54 POC Glucose Random Glucose 116 H Fasting Glucose Lactic Acid Calcium 9.4 Ionized Calcium Phosphorus 2.5 L Magnesium 1.8 Total Bilirubin Direct Bilirubin AST ALT Alkaline Phosphatase Ammonia Troponin I High Sens Total Protein Albumin 3.5 Triglycerides Vitamin B12 25-OH Vitamin D Total 23.5 TSH PTH Intact Calcium (PTH Intact) PTH Related Protein Urine Color Urine Appearance Urine pH Ur Specific [place] Urine Protein Urine Glucose (UA) Urine Ketones Urine Blood Urine Nitrite Ur Leukocyte Esterase Urine RBC Urine WBC Ur Squamous Epith Cells Urine Bacteria Hyaline Casts Urine Yeast CSF Tube Number CSF Volume CSF Appearance CSF Color CSF WBC CSF RBC CSF Lymphocytes CSF Appearance (b) CSF Glucose CSF Total Protein CSF C.neoform/gat PCR CSF CMV DNA (PCR) CSF Enterovirus (PCR) CSF E. coli K1 (PCR) CSF H. influenzae (PCR) CSF HSV I (PCR) CSF HSV II (PCR) CSF HHV 6 (PCR) CSF L.monocytogenes PCR CSF N. meningitidis PCR CSF Parechovirus (PCR) CSF S. agalactiae (PCR) CSF S. pneumoniae (PCR) CSF VZV (PCR) Influenza Type A (PCR) Influenza Type B (PCR) RSV RNA Qual (PCR) SARS-CoV-2 RNA (RT-PCR) Blood Type Antibody Screen Crossmatch 02/19/22 02/19/22 02/19/22 09:09 13:47 13:47 WBC RBC Hgb Hct MCV MCH MCHC RDW Plt Count MPV Immature Gran % (Auto) Neut % (Auto) Lymph % (Auto) Elbert % (Auto) Eos % (Auto) Baso % (Auto) Lymph # (Auto) [place]bert # (Auto) Eos # (Auto) Baso # (Auto) Abs Immat Gran (auto) Absolute Neuts (auto) Absolute Nucleated RBC Nucleated RBC % (auto) PT 13.5 H INR 1.2 H APTT 26.7 O2 Saturation ABG pH at Pt Temp ABG pCO2 at Pt Temp ABG pO2 at Pt Temp ABG HCO3 ABG Base Excess (Actual) VBG pH VBG pCO2 VBG pO2 VBG HCO3 VBG O2 Saturation VBG Base Excess Sodium Potassium Chloride Carbon Dioxide Anion Gap BUN Creatinine Estim Creat Clear Calc Estimated GFR POC Glucose Random Glucose Fasting Glucose Lactic Acid Calcium Ionized Calcium Phosphorus Magnesium Total Bilirubin Direct Bilirubin AST ALT Alkaline Phosphatase Ammonia Troponin I High Sens Total Protein Albumin Triglycerides Vitamin B12 25-OH Vitamin D Total TSH PTH Intact Calcium (PTH Intact) PTH Related Protein Urine Color Urine Appearance Urine pH Ur Specific [place] Urine Protein Urine Glucose (UA) Urine Ketones Urine Blood Urine Nitrite Ur Leukocyte Esterase Urine RBC Urine WBC Ur Squamous Epith Cells Urine Bacteria Hyaline Casts Urine Yeast CSF Tube Number 2 1 CSF Volume 2.0 CSF Appearance CLEAR CSF Color COLORLESS CSF WBC 3 CSF RBC 10 CSF Lymphocytes 100 CSF Appearance (b) Clear, Colorless CSF Glucose 59 CSF Total Protein 66.0 H CSF C.neoform/gat PCR CSF CMV DNA (PCR) CSF Enterovirus (PCR) CSF E. coli K1 (PCR) CSF H. influenzae (PCR) CSF HSV I (PCR) CSF HSV II (PCR) CSF HHV 6 (PCR) CSF L.monocytogenes PCR CSF N. meningitidis PCR CSF Parechovirus (PCR) CSF S. agalactiae (PCR) CSF S. pneumoniae (PCR) CSF VZV (PCR) Influenza Type A (PCR) Influenza Type B (PCR) RSV RNA Qual (PCR) SARS-CoV-2 RNA (RT-PCR) Blood Type Antibody Screen Crossmatch 02/19/22 02/19/22 02/20/22 13:47 13:47 09:25 WBC RBC Hgb Hct MCV MCH MCHC RDW Plt Count MPV Immature Gran % (Auto) Neut % (Auto) Lymph % (Auto) Elbert % (Auto) Eos % (Auto) Baso % (Auto) Lymph # (Auto) [place]bert # (Auto) Eos # (Auto) Baso # (Auto) Abs Immat Gran (auto) Absolute Neuts (auto) Absolute Nucleated RBC Nucleated RBC % (auto) PT INR APTT O2 Saturation ABG pH at Pt Temp ABG pCO2 at Pt Temp ABG pO2 at Pt Temp ABG HCO3 ABG Base Excess (Actual) VBG pH VBG pCO2 VBG pO2 VBG HCO3 VBG O2 Saturation VBG Base Excess Sodium Potassium Chloride Carbon Dioxide Anion Gap BUN Creatinine Estim Creat Clear Calc Estimated GFR POC Glucose Random Glucose Fasting Glucose Lactic Acid Calcium Ionized Calcium 5.8 H Phosphorus Magnesium Total Bilirubin Direct Bilirubin AST ALT Alkaline Phosphatase Ammonia Troponin I High Sens Total Protein Albumin Triglycerides Vitamin B12 25-OH Vitamin D Total TSH PTH Intact Calcium (PTH Intact) PTH Related Protein Urine Color Urine Appearance Urine pH Ur Specific [place] Urine Protein Urine Glucose (UA) Urine Ketones Urine Blood Urine Nitrite Ur Leukocyte Esterase Urine RBC Urine WBC Ur Squamous Epith Cells Urine Bacteria Hyaline Casts Urine Yeast CSF Tube Number 4 CSF Volume 2.0 CSF Appearance CLEAR CSF Color COLORLESS CSF WBC 3 CSF RBC 6 CSF Lymphocytes 100 CSF Appearance (b) CSF Glucose CSF Total Protein CSF C.neoform/gat PCR Not Detected CSF CMV DNA (PCR) Not Detected CSF Enterovirus (PCR) Not Detected CSF E. coli K1 (PCR) Not Detected CSF H. influenzae (PCR) Not Detected CSF HSV I (PCR) Not Detected CSF HSV II (PCR) Not Detected CSF HHV 6 (PCR) Not Detected CSF L.monocytogenes PCR Not Detected CSF N. meningitidis PCR Not Detected CSF Parechovirus (PCR) Not Detected CSF S. agalactiae (PCR) Not Detected CSF S. pneumoniae (PCR) Not Detected CSF VZV (PCR) Not Detected Influenza Type A (PCR) Influenza Type B (PCR) RSV RNA Qual (PCR) SARS-CoV-2 RNA (RT-PCR) Blood Type Antibody Screen Crossmatch 02/20/22 02/20/22 02/21/22 09:25 09:25 07:34 WBC 4.5 L RBC 3.08 L Hgb 9.0 L Hct 27.0 L MCV 87.7 MCH 29.2 MCHC 33.3 RDW 15.8 Plt Count 195 MPV 9.0 L Immature Gran % (Auto) Neut % (Auto) Lymph % (Auto) Elbert % (Auto) Eos % (Auto) Baso % (Auto) Lymph # (Auto) [place]bert # (Auto) Eos # (Auto) Baso # (Auto) Abs Immat Gran (auto) Absolute Neuts (auto) Absolute Nucleated RBC 0.000 Nucleated RBC % (auto) 0.0 PT INR APTT O2 Saturation ABG pH at Pt Temp ABG pCO2 at Pt Temp ABG pO2 at Pt Temp ABG HCO3 ABG Base Excess (Actual) VBG pH VBG pCO2 VBG pO2 VBG HCO3 VBG O2 Saturation VBG Base Excess Sodium 141 138 Potassium 4.1 4.1 Chloride 112 H 111 H Carbon Dioxide 24 21 L Anion Gap 9 L 10 L BUN 28 H 32 H Creatinine 1.22 1.29 Estim Creat Clear Calc 46.3 44.0 Estimated GFR 57 53 POC Glucose Random Glucose 104 146 H Fasting Glucose Lactic Acid Calcium 9.5 9.5 Ionized Calcium Phosphorus 3.1 2.8 Magnesium 2.1 2.2 Total Bilirubin 0.8 Direct Bilirubin AST 17 ALT 11 Alkaline Phosphatase 47 Ammonia Troponin I High Sens Total Protein 6.7 Albumin 3.3 L 3.3 L Triglycerides 70 Vitamin B12 25-OH Vitamin D Total TSH PTH Intact Calcium (PTH Intact) PTH Related Protein Urine Color Urine Appearance Urine pH Ur Specific [place] Urine Protein Urine Glucose (UA) Urine Ketones Urine Blood Urine Nitrite Ur Leukocyte Esterase Urine RBC Urine WBC Ur Squamous Epith Cells Urine Bacteria Hyaline Casts Urine Yeast CSF Tube Number CSF Volume CSF Appearance CSF Color CSF WBC CSF RBC CSF Lymphocytes CSF Appearance (b) CSF Glucose CSF Total Protein CSF C.neoform/gat PCR CSF CMV DNA (PCR) CSF Enterovirus (PCR) CSF E. coli K1 (PCR) CSF H. influenzae (PCR) CSF HSV I (PCR) CSF HSV II (PCR) CSF HHV 6 (PCR) CSF L.monocytogenes PCR CSF N. meningitidis PCR CSF Parechovirus (PCR) CSF S. agalactiae (PCR) CSF S. pneumoniae (PCR) CSF VZV (PCR) Influenza Type A (PCR) Influenza Type B (PCR) RSV RNA Qual (PCR) SARS-CoV-2 RNA (RT-PCR) Blood Type Antibody Screen Crossmatch 02/22/22 02/22/22 02/23/22 07:49 07:49 12:59 WBC 5.8 RBC 3.37 L Hgb 9.8 L Hct 29.2 L MCV 86.6 MCH 29.1 MCHC 33.6 RDW 16.4 H Plt Count 201 MPV 9.5 Immature Gran % (Auto) 0.5 H Neut % (Auto) 70.2 Lymph % (Auto) 12.2 L Elbert % (Auto) 11.6 H Eos % (Auto) 5.2 H Baso % (Auto) 0.3 Lymph # (Auto) 0.7 L [place] # (Auto) 0.7 Eos # (Auto) 0.3 Baso # (Auto) 0.0 Abs Immat Gran (auto) 0.03 Absolute Neuts (auto) 4.1 Absolute Nucleated RBC 0.000 Nucleated RBC % (auto) 0.0 PT INR APTT O2 Saturation ABG pH at Pt Temp ABG pCO2 at Pt Temp ABG pO2 at Pt Temp ABG HCO3 ABG Base Excess (Actual) VBG pH VBG pCO2 VBG pO2 VBG HCO3 VBG O2 Saturation VBG Base Excess Sodium 136 138 Potassium 4.6 4.3 Chloride 112 H 112 H Carbon Dioxide 19 L 20 L Anion Gap 10 L 10 L BUN 36 H 49 H D Creatinine 1.23 1.37 Estim Creat Clear Calc 45.8 41.0 Estimated GFR 56 50 POC Glucose Random Glucose 172 H 165 H Fasting Glucose Lactic Acid Calcium 9.6 9.8 Ionized Calcium Phosphorus 2.4 L 3.3 Magnesium 2.2 2.4 Total Bilirubin Direct Bilirubin AST ALT Alkaline Phosphatase Ammonia Troponin I High Sens Total Protein Albumin 3.4 L Triglycerides Vitamin B12 25-OH Vitamin D Total TSH PTH Intact Calcium (PTH Intact) PTH Related Protein Urine Color Urine Appearance Urine pH Ur Specific [place] Urine Protein Urine Glucose (UA) Urine Ketones Urine Blood Urine Nitrite Ur Leukocyte Esterase Urine RBC Urine WBC Ur Squamous Epith Cells Urine Bacteria Hyaline Casts Urine Yeast CSF Tube Number CSF Volume CSF Appearance CSF Color CSF WBC CSF RBC CSF Lymphocytes CSF Appearance (b) CSF Glucose CSF Total Protein CSF C.neoform/gat PCR CSF CMV DNA (PCR) CSF Enterovirus (PCR) CSF E. coli K1 (PCR) CSF H. influenzae (PCR) CSF HSV I (PCR) CSF HSV II (PCR) CSF HHV 6 (PCR) CSF L.monocytogenes PCR CSF N. meningitidis PCR CSF Parechovirus (PCR) CSF S. agalactiae (PCR) CSF S. pneumoniae (PCR) CSF VZV (PCR) Influenza Type A (PCR) Influenza Type B (PCR) RSV RNA Qual (PCR) SARS-CoV-2 RNA (RT-PCR) Blood Type Antibody Screen Crossmatch 02/24/22 02/25/22 02/26/22 06:04 07:09 07:56 WBC RBC Hgb Hct MCV MCH MCHC RDW Plt Count MPV Immature Gran % (Auto) Neut % (Auto) Lymph % (Auto) [place]bert % (Auto) Eos % (Auto) Baso % (Auto) Lymph # (Auto) [place] # (Auto) Eos # (Auto) Baso # (Auto) Abs Immat Gran (auto) Absolute Neuts (auto) Absolute Nucleated RBC Nucleated RBC % (auto) PT INR APTT O2 Saturation ABG pH at Pt Temp ABG pCO2 at Pt Temp ABG pO2 at Pt Temp ABG HCO3 ABG Base Excess (Actual) VBG pH VBG pCO2 VBG pO2 VBG HCO3 VBG O2 Saturation VBG Base Excess Sodium 140 137 138 Potassium 4.2 4.6 4.5 Chloride 113 H 111 H 111 H Carbon Dioxide 18 L 18 L 17 L Anion Gap 13 13 15 BUN 51 H 54 H 63 H Creatinine 1.24 1.11 1.22 Estim Creat Clear Calc 46.0 50.9 43.9 Estimated GFR 56 > 60 57 POC Glucose Random Glucose 164 H 184 H 215 H Fasting Glucose Lactic Acid Calcium 9.6 9.7 9.7 Ionized Calcium Phosphorus 3.2 2.9 3.8 Magnesium 2.4 2.4 2.4 Total Bilirubin 0.5 0.6 0.6 Direct Bilirubin AST 12 10 12 ALT 8 7 8 Alkaline Phosphatase 48 57 56 Ammonia Troponin I High Sens Total Protein 6.6 7.0 7.1 Albumin 3.2 L 3.4 L 3.4 L Triglycerides 72 Vitamin B12 25-OH Vitamin D Total TSH PTH Intact Calcium (PTH Intact) PTH Related Protein Urine Color Urine Appearance Urine pH Ur Specific [place] Urine Protein Urine Glucose (UA) Urine Ketones Urine Blood Urine Nitrite Ur Leukocyte Esterase Urine RBC Urine WBC Ur Squamous Epith Cells Urine Bacteria Hyaline Casts Urine Yeast CSF Tube Number CSF Volume CSF Appearance CSF Color CSF WBC CSF RBC CSF Lymphocytes CSF Appearance (b) CSF Glucose CSF Total Protein CSF C.neoform/gat PCR CSF CMV DNA (PCR) CSF Enterovirus (PCR) CSF E. coli K1 (PCR) CSF H. influenzae (PCR) CSF HSV I (PCR) CSF HSV II (PCR) CSF HHV 6 (PCR) CSF L.monocytogenes PCR CSF N. meningitidis PCR CSF Parechovirus (PCR) CSF S. agalactiae (PCR) CSF S. pneumoniae (PCR) CSF VZV (PCR) Influenza Type A (PCR) Influenza Type B (PCR) RSV RNA Qual (PCR) SARS-CoV-2 RNA (RT-PCR) Blood Type Antibody Screen Crossmatch 02/27/22 07:00 WBC RBC Hgb Hct MCV MCH MCHC RDW Plt Count MPV Immature Gran % (Auto) Neut % (Auto) Lymph % (Auto) [place]bert % (Auto) Eos % (Auto) Baso % (Auto) Lymph # (Auto) [place] # (Auto) Eos # (Auto) Baso # (Auto) Abs Immat Gran (auto) Absolute Neuts (auto) Absolute Nucleated RBC Nucleated RBC % (auto) PT INR APTT O2 Saturation ABG pH at Pt Temp ABG pCO2 at Pt Temp ABG pO2 at Pt Temp ABG HCO3 ABG Base Excess (Actual) VBG pH VBG pCO2 VBG pO2 VBG HCO3 VBG O2 Saturation VBG Base Excess Sodium 137 Potassium 4.1 Chloride 112 H Carbon Dioxide 18 L Anion Gap 11 L BUN 69 H Creatinine 1.12 Estim Creat Clear Calc 51.6 Estimated GFR > 60 POC Glucose Random Glucose 178 H Fasting Glucose Lactic Acid Calcium 9.2 Ionized Calcium Phosphorus 3.7 Magnesium 2.3 Total Bilirubin Direct Bilirubin AST ALT Alkaline Phosphatase Ammonia Troponin I High Sens Total Protein Albumin Triglycerides Vitamin B12 25-OH Vitamin D Total TSH PTH Intact Calcium (PTH Intact) PTH Related Protein Urine Color Urine Appearance Urine pH Ur Specific [place] Urine Protein Urine Glucose (UA) Urine Ketones Urine Blood Urine Nitrite Ur Leukocyte Esterase Urine RBC Urine WBC Ur Squamous Epith Cells Urine Bacteria Hyaline Casts Urine Yeast CSF Tube Number CSF Volume CSF Appearance CSF Color CSF WBC CSF RBC CSF Lymphocytes CSF Appearance (b) CSF Glucose CSF Total Protein CSF C.neoform/gat PCR CSF CMV DNA (PCR) CSF Enterovirus (PCR) CSF E. coli K1 (PCR) CSF H. influenzae (PCR) CSF HSV I (PCR) CSF HSV II (PCR) CSF HHV 6 (PCR) CSF L.monocytogenes PCR CSF N. meningitidis PCR CSF Parechovirus (PCR) CSF S. agalactiae (PCR) CSF S. pneumoniae (PCR) CSF VZV (PCR) Influenza Type A (PCR) Influenza Type B (PCR) RSV RNA Qual (PCR) SARS-CoV-2 RNA (RT-PCR) Blood Type Antibody Screen Crossmatch Assessment and Plan Final Anesthetic Review Family History of Problems with Anesthesia: No History of Problems with Anesthesia: No
--- NOTE | 2022-02-28 14:45 | W.PM.OPN ---
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 He has had poor oral intake. He was referred to me for PEG tube placement. I discussed this with his healthcare proxy Shelby. She understood the technique of PEG tube placement and was aware of the risks, benefits, and alternatives and she had given consent The patient was brought to the operating room and placed supine on the OR table under monitored anesthesia care. A surgical time-out was done. A bite block was in place. The Olympus gastroscope was introduced through the bite block into the oropharynx. The vocal cords were visualized and the esophageal slit was seen posterior to this. The esophageal slit was intubated. The scope was gently introduced through esophagus into the stomach. The stomach was insufflated. Transillumination was easily seen through the abdominal wall on the epigastric area. Indentation of the anterior stomach wall was also easily seen with pressure with the finger on the epigastric area. This area was chosen as our point of PEG tube placement. This area was prepped and draped. Lidocaine 1% was used for local anesthesia. A small incision was made on this area. The large-bore needle along with a plastic cannula was inserted. The needle was removed. A guidewire was inserted through this cannula into the gastric lumen. This was grasped with a snare. I pulled out this guidewire through the oral cavity. This was looped to the PEG tube. The PEG tube was then pulled out though the abdominal wall until this was snug. I readvanced the endoscope into the stomach. Good position of the internal bolster was noted. There was no bleeding. I pulled out the endoscope. We attached the external bolster to make this snug on the anterior abdominal wall. Dressings were applied and the procedure was completed. The patient tolerated procedure well. There were no immediate complications. Estimated blood loss was less than 5 cc. The patient was transferred to the recovery room with stable vital signs.
--- NOTE | 2022-02-28 14:48 | MHC.CM.PN ---
[facility] via BLS. No dc today. Patient is planned for a PEG today. TF starts tomorrow. Plan to discharge once TF @ goal rate. The facility has received a clinical update. CM will follow.
--- NOTE | 2022-02-28 14:53 | PM.OP ---
Brief Operative Note Date of Service: 02/28/22 <Milli Douglass PA-C - Last Filed: 02/28/22 14:55> Pre-op diagnosis: encephalopathy, dementia <Milli Douglass PA-C - Last Filed: 02/28/22 14:55> Post-op diagnosis: same <Milli Douglass PA-C - Last Filed: 02/28/22 14:55> Procedure: PEG tube placement <Milli Douglass PA-C - Last Filed: 02/28/22 14:55> Implants: 20F PEG tube <Milli Douglass PA-C - Last Filed: 02/28/22 14:55> Surgeon: DYAN CARRANZA MD <Milli Douglass PA-C - Last Filed: 02/28/22 14:55> Anesthesia: MAC <Milli Douglass PA-C - Last Filed: 02/28/22 14:55> Was an Flight Instructor used for this Procedure?: Yes <Milli Douglass PA-C - Last Filed: 02/28/22 14:55> No <Dyan Carranza MD - Last Filed: 03/01/22 08:06> Flight Instructor: Milli Douglass <Milli Douglass PA-C - Last Filed: 02/28/22 14:55> Estimated blood loss (mL): 2 <Milli Douglass PA-C - Last Filed: 02/28/22 14:55> Pathology: none sent <Milli Douglass PA-C - Last Filed: 02/28/22 14:55> Condition: stable <ABDIAS Alatorre Last Filed: 02/28/22 14:55> Disposition: PACU <ABDIAS Alatorre Last Filed: 02/28/22 14:55>
--- NOTE | 2022-02-28 15:03 | P.CONAN_ITS ---
[facility] Active Problems Active Problems: All Active Problems (Updated 02/17/22 @ 11:18 by Jyoti Mari MD) Non-convulsive status epilepticus (Acute) Status epilepticus (Acute) Epileptic encephalopathy (Acute) Seizures (Acute) Encephalopathy (Acute) Dementia with behavioral disturbance (Acute) Urinary retention with incomplete bladder emptying (Acute) Dementia with psychosis (Acute) Bladder spasm (Acute) Coronary artery disease (Acute) Accelerated essential hypertension (Acute) UTI (urinary tract infection) (Acute) Sepsis secondary to UTI (Acute) Acute urinary retention (Acute) ALETHEA (acute kidney injury) (Acute) Past Medical History Medical History 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 Mother No problems noted. Family history of problems with anesthesia: No Surgical History Surgical History History of surgery History of Problems with Anesthesia: No Social History Social History Household Members: Significant [facility] Do you presently have visiting nurse or other home services: Yes Alcohol intake: never Patient Tobacco Use Status: Never used Tobacco e-Cigarette/Vaping Use: Never Used Second Hand Smoke Exposure: No Advance Directives Date on File: 09/21/21 service: No Current occupational status: unemployed and retired Meds Allergies Allergy/AdvReac Type Severity Reaction Status Date / Time No Known Allergies Allergy Verified 10/25/21 08:15 Active Medications: Current Medications Artificial Tears (Artificial Tears 15 Ml Drops) 2 drop EYE-BOTH Q4H [facility] Last Admin: 02/28/22 12:21 Dose: Not Given Enoxaparin Sodium (Enoxaparin Sodium 40 Mg/0.4 Ml Syringe) 40 mg SUBCUT Q24H [facility]KKI Hydralazine HCl (Hydralazine Hcl 20 Mg/Ml Vial) 10 mg IVPUSH Q6H PRN; Protocol PRN Reason: Sbp > 180 Levetiracetam (Keppra) 1,000 mg in 100 mls @ 400 mls/hr IV Q12H [facility] Last Infusion: 02/28/22 05:30 Dose: Infused Magnesium Sulfate 10 meq/Potassium Phosphate 30 mmol/Calcium Gluconate 9.3 meq/Sodium Acetate 30 meq/ Sodium Phosphate 20 mmol/ Potassium Acetate 20 meq/ Multivitamins 12 ml/ Trace Metals 1.2 ml/Amino Acids/Dextrose 1,680 mls @ 70 mls/hr IV DAILY@1800 [facility] Stop: 02/28/22 17:59 Last Admin: 02/27/22 18:18 Dose: 70 mls/hr Magnesium Sulfate 10 meq/Potassium Phosphate 30 mmol/Calcium Gluconate 9.3 meq/Sodium Acetate 30 meq/ Sodium Phosphate 20 mmol/ Potassium Acetate 20 meq/ Multivitamins 12 ml/ Trace Metals 1.2 ml/Amino Acids/Dextrose 1,680 mls @ 70 mls/hr IV DAILY@1800 [facility] Stop: 03/01/22 17:59 Fat Emulsion Intravenous (Intralipid) 150 mls @ 25 mls/hr IV DAILY@0000,1800 [facility] Stop: 03/01/22 05:59 Methylprednisolone Sodium Succinate (Methylprednisolone Sod Succ 125 Mg/2 Ml Vial) 60 mg IVPUSH DAILY [facility] Stop: 03/11/22 09:01 Last Admin: 02/28/22 08:50 Dose: 60 mg Pharmacy Consult (Consult Rx Perform Med Rec) 1 each MISCELLANE ONCE PRN PRN Reason: Consult order Sodium Chloride (0.9 % Sodium Chloride Flush 3 Ml Syringe) 3 ml IVFLUSH QSHIFT [facility] Last Admin: 02/28/22 08:49 Dose: 3 ml Sodium Chloride (0.9 % Sodium Chloride Flush 10 Ml Syringe) 5 ml IVFLUSH TID [facility] Last Admin: 02/28/22 08:50 Dose: 5 ml Home Medications Medication Instructions Recorded Confirmed Last Taken Type aspirin 81 mg tablet,delayed 81 mg PO DAILY 12/12/21 02/07/22 02/07/22 History release lisinopril 5 mg tablet 5 mg PO DAILY 12/12/21 02/07/22 02/07/22 History rosuvastatin 10 mg tablet 1 tab PO BEDTIME 12/12/21 02/07/22 02/06/22 History ticagrelor 90 mg tablet 90 mg PO BID 12/12/21 02/07/22 02/06/22 History Exam Exam Date and Time: February 28, 2022 1503 Height,Weight and Vital Signs: Height 6 ft Weight 70.5 kg Last Vital Signs Temp 98.0 F 02/28/22 14:56 Pulse 77 02/28/22 14:56 Resp 16 02/28/22 14:56 BP 133/58 L 02/28/22 14:56 Pulse Ox 99 02/28/22 14:56 O2 Del Method 02/28/22 14:56 O2 Flow Rate 2 02/28/22 14:56 Pertinent Lab Results Pertinent Lab Results: Laboratory Tests 02/07/22 02/07/22 02/07/22 14:16 14:20 14:20 WBC 5.5 RBC 2.89 L Hgb 8.1 L Hct 25.4 L MCV 87.9 MCH 28.0 MCHC 31.9 RDW 15.7 Plt Count 238 MPV 8.6 L Immature Gran % (Auto) 0.5 H Neut % (Auto) 71.6 Lymph % (Auto) 8.9 L [place] % (Auto) 15.7 H Eos % (Auto) 2.9 Baso % (Auto) 0.4 Lymph # (Auto) 0.5 L [place] # (Auto) 0.9 Eos # (Auto) 0.2 Baso # (Auto) 0.0 Abs Immat Gran (auto) 0.03 Absolute Neuts (auto) 3.9 Absolute Nucleated RBC 0.000 Nucleated RBC % (auto) 0.0 PT INR APTT O2 Saturation ABG pH at Pt Temp ABG pCO2 at Pt Temp ABG pO2 at Pt Temp ABG HCO3 ABG Base Excess (Actual) VBG pH VBG pCO2 VBG pO2 VBG HCO3 VBG O2 Saturation VBG Base Excess Sodium 135 Potassium 4.3 D Chloride 103 Carbon Dioxide 21 L Anion Gap 15 BUN 37 H D Creatinine 3.04 H Estim Creat Clear Calc 18.9 Estimated GFR 20 POC Glucose Random Glucose 124 H Fasting Glucose Lactic Acid Calcium 10.5 H D Ionized Calcium Phosphorus Magnesium 2.1 Total Bilirubin 1.1 H Direct Bilirubin AST 9 D ALT < 6 Alkaline Phosphatase 62 Ammonia Troponin I High Sens Total Protein 7.0 Albumin 3.1 L Triglycerides Vitamin B12 25-OH Vitamin D Total TSH PTH Intact Calcium (PTH Intact) PTH Related Protein Urine Color Urine Appearance Urine pH Ur Specific [place] Urine Protein Urine Glucose (UA) Urine Ketones Urine Blood Urine Nitrite Ur Leukocyte Esterase Urine RBC Urine WBC Ur Squamous Epith Cells Urine Bacteria Hyaline Casts Urine Yeast CSF Tube Number CSF Volume CSF Appearance CSF Color CSF WBC CSF RBC CSF Lymphocytes CSF Appearance (b) CSF Glucose CSF Total Protein CSF C.neoform/gat PCR CSF CMV DNA (PCR) CSF Enterovirus (PCR) CSF E. coli K1 (PCR) CSF H. influenzae (PCR) CSF HSV I (PCR) CSF HSV II (PCR) CSF HHV 6 (PCR) CSF L.monocytogenes PCR CSF N. meningitidis PCR CSF Parechovirus (PCR) CSF S. agalactiae (PCR) CSF S. pneumoniae (PCR) CSF VZV (PCR) Influenza Type A (PCR) NEGATIVE Influenza Type B (PCR) NEGATIVE RSV RNA Qual (PCR) NEGATIVE SARS-CoV-2 RNA (RT-PCR) NEGATIVE Blood Type Antibody Screen Crossmatch 02/07/22 02/07/22 02/07/22 14:20 15:14 16:50 WBC RBC Hgb Hct MCV MCH MCHC RDW Plt Count MPV Immature Gran % (Auto) Neut % (Auto) Lymph % (Auto) [place] % (Auto) Eos % (Auto) Baso % (Auto) Lymph # (Auto) [place] # (Auto) Eos # (Auto) Baso # (Auto) Abs Immat Gran (auto) Absolute Neuts (auto) Absolute Nucleated RBC Nucleated RBC % (auto) PT INR APTT O2 Saturation ABG pH at Pt Temp ABG pCO2 at Pt Temp ABG pO2 at Pt Temp ABG HCO3 ABG Base Excess (Actual) VBG pH VBG pCO2 VBG pO2 VBG HCO3 VBG O2 Saturation VBG Base Excess Sodium Potassium Chloride Carbon Dioxide Anion Gap BUN Creatinine Estim Creat Clear Calc Estimated GFR POC Glucose Random Glucose Fasting Glucose Lactic Acid 0.8 Calcium Ionized Calcium Phosphorus Magnesium Total Bilirubin Direct Bilirubin AST ALT Alkaline Phosphatase Ammonia Troponin I High Sens 10.7 D Total Protein Albumin Triglycerides Vitamin B12 25-OH Vitamin D Total TSH PTH Intact Calcium (PTH Intact) PTH Related Protein Urine Color Yellow Urine Appearance Turbid Urine pH 8.5 Ur Specific [place] 1.010 Urine Protein 30 (1+) H Urine Glucose (UA) Negative Urine Ketones Negative Urine Blood Small (1+) H Urine Nitrite Negative Ur Leukocyte Esterase Large (3+) H Urine RBC 3-5 H Urine WBC >50 H Ur Squamous Epith Cells 6-10 Urine Bacteria 4+ Hyaline Casts 3-5 Urine Yeast Present CSF Tube Number CSF Volume CSF Appearance CSF Color CSF WBC CSF RBC CSF Lymphocytes CSF Appearance (b) CSF Glucose CSF Total Protein CSF C.neoform/gat PCR CSF CMV DNA (PCR) CSF Enterovirus (PCR) CSF E. coli K1 (PCR) CSF H. influenzae (PCR) CSF HSV I (PCR) CSF HSV II (PCR) CSF HHV 6 (PCR) CSF L.monocytogenes PCR CSF N. meningitidis PCR CSF Parechovirus (PCR) CSF S. agalactiae (PCR) CSF S. pneumoniae (PCR) CSF VZV (PCR) Influenza Type A (PCR) Influenza Type B (PCR) RSV RNA Qual (PCR) SARS-CoV-2 RNA (RT-PCR) Blood Type Antibody Screen Crossmatch 02/08/22 02/08/22 02/08/22 05:25 05:25 09:26 WBC 3.9 L RBC 2.59 L Hgb 7.4 L Hct 22.9 L MCV 88.4 MCH 28.6 MCHC 32.3 RDW 15.7 Plt Count 224 MPV 8.8 L Immature Gran % (Auto) 0.5 H Neut % (Auto) 61.9 Lymph % (Auto) 13.7 L [place] % (Auto) 17.8 H Eos % (Auto) 5.6 H Baso % (Auto) 0.5 Lymph # (Auto) 0.5 L [place] # (Auto) 0.7 Eos # (Auto) 0.2 Baso # (Auto) 0.0 Abs Immat Gran (auto) 0.02 Absolute Neuts (auto) 2.4 Absolute Nucleated RBC 0.000 Nucleated RBC % (auto) 0.0 PT INR APTT O2 Saturation ABG pH at Pt Temp ABG pCO2 at Pt Temp ABG pO2 at Pt Temp ABG HCO3 ABG Base Excess (Actual) VBG pH VBG pCO2 VBG pO2 VBG HCO3 VBG O2 Saturation VBG Base Excess Sodium 140 Potassium 4.6 Chloride 111 H Carbon Dioxide 22 Anion Gap 12 BUN 35 H Creatinine 2.49 H Estim Creat Clear Calc 23.4 Estimated GFR 25 POC Glucose Random Glucose Fasting Glucose 92 Lactic Acid Calcium 9.8 D Ionized Calcium Phosphorus Magnesium Total Bilirubin 1.1 H Direct Bilirubin AST 6 ALT < 6 Alkaline Phosphatase 50 Ammonia Troponin I High Sens Total Protein 6.1 L Albumin 2.6 L Triglycerides Vitamin B12 25-OH Vitamin D Total TSH PTH Intact Calcium (PTH Intact) PTH Related Protein Urine Color Urine Appearance Urine pH Ur Specific [place] Urine Protein Urine Glucose (UA) Urine Ketones Urine Blood Urine Nitrite Ur Leukocyte Esterase Urine RBC Urine WBC Ur Squamous Epith Cells Urine Bacteria Hyaline Casts Urine Yeast CSF Tube Number CSF Volume CSF Appearance CSF Color CSF WBC CSF RBC CSF Lymphocytes CSF Appearance (b) CSF Glucose CSF Total Protein CSF C.neoform/gat PCR CSF CMV DNA (PCR) CSF Enterovirus (PCR) CSF E. coli K1 (PCR) CSF H. influenzae (PCR) CSF HSV I (PCR) CSF HSV II (PCR) CSF HHV 6 (PCR) CSF L.monocytogenes PCR CSF N. meningitidis PCR CSF Parechovirus (PCR) CSF S. agalactiae (PCR) CSF S. pneumoniae (PCR) CSF VZV (PCR) Influenza Type A (PCR) Influenza Type B (PCR) RSV RNA Qual (PCR) SARS-CoV-2 RNA (RT-PCR) Blood Type AB Positive Antibody Screen NEGATIVE Crossmatch See Detail 02/09/22 02/09/22 02/10/22 05:23 05:23 05:52 WBC 5.1 4.5 L RBC 3.03 L 3.09 L Hgb 8.7 L 8.9 L Hct 27.2 L 27.6 L MCV 89.8 89.3 MCH 28.7 28.8 MCHC 32.0 32.2 RDW 15.7 15.9 Plt Count 253 267 MPV 8.7 L 8.8 L Immature Gran % (Auto) 0.6 H 0.4 Neut % (Auto) 62.6 64.6 Lymph % (Auto) 15.4 L 15.5 L [place] % (Auto) 15.8 H 15.9 H Eos % (Auto) 5.0 H 2.7 Baso % (Auto) 0.6 0.9 Lymph # (Auto) 0.8 L 0.7 L [place] # (Auto) 0.8 0.7 Eos # (Auto) 0.3 0.1 Baso # (Auto) 0.0 0.0 Abs Immat Gran (auto) 0.03 0.02 Absolute Neuts (auto) 3.2 2.9 Absolute Nucleated RBC 0.000 0.000 Nucleated RBC % (auto) 0.0 0.0 PT INR APTT O2 Saturation ABG pH at Pt Temp ABG pCO2 at Pt Temp ABG pO2 at Pt Temp ABG HCO3 ABG Base Excess (Actual) VBG pH VBG pCO2 VBG pO2 VBG HCO3 VBG O2 Saturation VBG Base Excess Sodium 139 Potassium 4.5 Chloride 112 H Carbon Dioxide 18 L Anion Gap 14 BUN 33 H Creatinine 2.35 H Estim Creat Clear Calc 24.8 Estimated GFR 27 POC Glucose Random Glucose Fasting Glucose 92 Lactic Acid Calcium 10.2 Ionized Calcium Phosphorus Magnesium Total Bilirubin 1.6 H Direct Bilirubin AST 10 ALT < 6 Alkaline Phosphatase 51 Ammonia Troponin I High Sens Total Protein 6.6 Albumin 2.7 L Triglycerides Vitamin B12 25-OH Vitamin D Total TSH PTH Intact Calcium (PTH Intact) PTH Related Protein Urine Color Urine Appearance Urine pH Ur Specific [place] Urine Protein Urine Glucose (UA) Urine Ketones Urine Blood Urine Nitrite Ur Leukocyte Esterase Urine RBC Urine WBC Ur Squamous Epith Cells Urine Bacteria Hyaline Casts Urine Yeast CSF Tube Number CSF Volume CSF Appearance CSF Color CSF WBC CSF RBC CSF Lymphocytes CSF Appearance (b) CSF Glucose CSF Total Protein CSF C.neoform/gat PCR CSF CMV DNA (PCR) CSF Enterovirus (PCR) CSF E. coli K1 (PCR) CSF H. influenzae (PCR) CSF HSV I (PCR) CSF HSV II (PCR) CSF HHV 6 (PCR) CSF L.monocytogenes PCR CSF N. meningitidis PCR CSF Parechovirus (PCR) CSF S. agalactiae (PCR) CSF S. pneumoniae (PCR) CSF VZV (PCR) Influenza Type A (PCR) Influenza Type B (PCR) RSV RNA Qual (PCR) SARS-CoV-2 RNA (RT-PCR) Blood Type Antibody Screen Crossmatch 02/10/22 02/11/22 02/11/22 05:52 05:52 05:52 WBC 6.6 RBC 3.20 L Hgb 9.5 L Hct 28.5 L MCV 89.1 MCH 29.7 MCHC 33.3 RDW 15.8 Plt Count 269 MPV 8.9 L Immature Gran % (Auto) 0.3 Neut % (Auto) 70.5 Lymph % (Auto) 11.9 L [place] % (Auto) 14.0 H Eos % (Auto) 2.7 Baso % (Auto) 0.6 Lymph # (Auto) 0.8 L [place] # (Auto) 0.9 Eos # (Auto) 0.2 Baso # (Auto) 0.0 Abs Immat Gran (auto) 0.02 Absolute Neuts (auto) 4.7 Absolute Nucleated RBC 0.000 Nucleated RBC % (auto) 0.0 PT INR APTT O2 Saturation ABG pH at Pt Temp ABG pCO2 at Pt Temp ABG pO2 at Pt Temp ABG HCO3 ABG Base Excess (Actual) VBG pH VBG pCO2 VBG pO2 VBG HCO3 VBG O2 Saturation VBG Base Excess Sodium 139 140 Potassium 3.9 3.5 Chloride 111 H 112 H Carbon Dioxide 18 L 17 L Anion Gap 14 15 BUN 35 H 31 H Creatinine 2.04 H 2.20 H Estim Creat Clear Calc 28.6 26.5 Estimated GFR 31 29 POC Glucose Random Glucose Fasting Glucose 93 136 H Lactic Acid Calcium 10.3 H 10.9 H Ionized Calcium Phosphorus Magnesium Total Bilirubin 1.3 H 1.1 H Direct Bilirubin AST 9 9 ALT 6 < 6 Alkaline Phosphatase 51 52 Ammonia Troponin I High Sens Total Protein 6.6 7.1 Albumin 2.8 L 3.0 L Triglycerides Vitamin B12 25-OH Vitamin D Total TSH PTH Intact Calcium (PTH Intact) PTH Related Protein Urine Color Urine Appearance Urine pH Ur Specific [place] Urine Protein Urine Glucose (UA) Urine Ketones Urine Blood Urine Nitrite Ur Leukocyte Esterase Urine RBC Urine WBC Ur Squamous Epith Cells Urine Bacteria Hyaline Casts Urine Yeast CSF Tube Number CSF Volume CSF Appearance CSF Color CSF WBC CSF RBC CSF Lymphocytes CSF Appearance (b) CSF Glucose CSF Total Protein CSF C.neoform/gat PCR CSF CMV DNA (PCR) CSF Enterovirus (PCR) CSF E. coli K1 (PCR) CSF H. influenzae (PCR) CSF HSV I (PCR) CSF HSV II (PCR) CSF HHV 6 (PCR) CSF L.monocytogenes PCR CSF N. meningitidis PCR CSF Parechovirus (PCR) CSF S. agalactiae (PCR) CSF S. pneumoniae (PCR) CSF VZV (PCR) Influenza Type A (PCR) Influenza Type B (PCR) RSV RNA Qual (PCR) SARS-CoV-2 RNA (RT-PCR) Blood Type Antibody Screen Crossmatch 02/12/22 02/12/22 02/13/22 10:31 10:31 05:29 WBC 3.6 L 5.0 RBC 2.94 L 3.24 L Hgb 8.6 L 9.2 L Hct 26.5 L 29.8 L MCV 90.1 92.0 MCH 29.3 28.4 MCHC 32.5 30.9 L RDW 16.0 15.9 Plt Count 201 D 221 MPV 8.5 L 8.7 L Immature Gran % (Auto) 0.6 H 0.4 Neut % (Auto) 57.2 64.7 Lymph % (Auto) 19.6 L 13.9 L [place] % (Auto) 16.2 H 14.1 H Eos % (Auto) 5.6 H 6.3 H Baso % (Auto) 0.8 0.6 Lymph # (Auto) 0.7 L 0.7 L [place] # (Auto) 0.6 0.7 Eos # (Auto) 0.2 0.3 Baso # (Auto) 0.0 0.0 Abs Immat Gran (auto) 0.02 0.02 Absolute Neuts (auto) 2.0 3.3 Absolute Nucleated RBC 0.000 0.000 Nucleated RBC % (auto) 0.0 0.0 PT INR APTT O2 Saturation ABG pH at Pt Temp ABG pCO2 at Pt Temp ABG pO2 at Pt Temp ABG HCO3 ABG Base Excess (Actual) VBG pH VBG pCO2 VBG pO2 VBG HCO3 VBG O2 Saturation VBG Base Excess Sodium 143 Potassium 3.5 Chloride 113 H Carbon Dioxide 22 Anion Gap 12 BUN 27 H Creatinine 2.01 H Estim Creat Clear Calc 29.1 Estimated GFR 32 POC Glucose Random Glucose Fasting Glucose 103 H Lactic Acid Calcium 10.2 D Ionized Calcium Phosphorus Magnesium Total Bilirubin 1.0 Direct Bilirubin AST 9 ALT 6 Alkaline Phosphatase 50 Ammonia Troponin I High Sens Total Protein 6.3 L Albumin 2.7 L Triglycerides Vitamin B12 25-OH Vitamin D Total TSH PTH Intact Calcium (PTH Intact) PTH Related Protein Urine Color Urine Appearance Urine pH Ur Specific [place] Urine Protein Urine Glucose (UA) Urine Ketones Urine Blood Urine Nitrite Ur Leukocyte Esterase Urine RBC Urine WBC Ur Squamous Epith Cells Urine Bacteria Hyaline Casts Urine Yeast CSF Tube Number CSF Volume CSF Appearance CSF Color CSF WBC CSF RBC CSF Lymphocytes CSF Appearance (b) CSF Glucose CSF Total Protein CSF C.neoform/gat PCR CSF CMV DNA (PCR) CSF Enterovirus (PCR) CSF E. coli K1 (PCR) CSF H. influenzae (PCR) CSF HSV I (PCR) CSF HSV II (PCR) CSF HHV 6 (PCR) CSF L.monocytogenes PCR CSF N. meningitidis PCR CSF Parechovirus (PCR) CSF S. agalactiae (PCR) CSF S. pneumoniae (PCR) CSF VZV (PCR) Influenza Type A (PCR) Influenza Type B (PCR) RSV RNA Qual (PCR) SARS-CoV-2 RNA (RT-PCR) Blood Type Antibody Screen Crossmatch 02/13/22 02/15/22 02/15/22 05:29 06:32 06:32 WBC RBC Hgb Hct MCV MCH MCHC RDW Plt Count MPV Immature Gran % (Auto) Neut % (Auto) Lymph % (Auto) [place] % (Auto) Eos % (Auto) Baso % (Auto) Lymph # (Auto) [place] # (Auto) Eos # (Auto) Baso # (Auto) Abs Immat Gran (auto) Absolute Neuts (auto) Absolute Nucleated RBC Nucleated RBC % (auto) PT INR APTT O2 Saturation ABG pH at Pt Temp ABG pCO2 at Pt Temp ABG pO2 at Pt Temp ABG HCO3 ABG Base Excess (Actual) VBG pH VBG pCO2 VBG pO2 VBG HCO3 VBG O2 Saturation VBG Base Excess Sodium 141 140 Potassium 3.5 3.4 Chloride 113 H 109 H Carbon Dioxide 22 25 Anion Gap 10 L 9 L BUN 24 H 24 H Creatinine 1.76 H 1.68 H Estim Creat Clear Calc 33.2 34.8 Estimated GFR 37 39 POC Glucose Random Glucose 86 Fasting Glucose 108 H Lactic Acid Calcium 10.4 H 10.5 H Ionized Calcium Phosphorus Magnesium 2.0 Total Bilirubin 1.0 1.1 H Direct Bilirubin 0.4 AST 8 9 ALT < 6 < 6 Alkaline Phosphatase 51 51 Ammonia Troponin I High Sens Total Protein 6.5 6.5 Albumin 2.6 L 2.7 L Triglycerides Vitamin B12 25-OH Vitamin D Total TSH 1.65 PTH Intact 7 L Calcium (PTH Intact) 10.5 H PTH Related Protein Urine Color Urine Appearance Urine pH Ur Specific [place] Urine Protein Urine Glucose (UA) Urine Ketones Urine Blood Urine Nitrite Ur Leukocyte Esterase Urine RBC Urine WBC Ur Squamous Epith Cells Urine Bacteria Hyaline Casts Urine Yeast CSF Tube Number CSF Volume CSF Appearance CSF Color CSF WBC CSF RBC CSF Lymphocytes CSF Appearance (b) CSF Glucose CSF Total Protein CSF C.neoform/gat PCR CSF CMV DNA (PCR) CSF Enterovirus (PCR) CSF E. coli K1 (PCR) CSF H. influenzae (PCR) CSF HSV I (PCR) CSF HSV II (PCR) CSF HHV 6 (PCR) CSF L.monocytogenes PCR CSF N. meningitidis PCR CSF Parechovirus (PCR) CSF S. agalactiae (PCR) CSF S. pneumoniae (PCR) CSF VZV (PCR) Influenza Type A (PCR) Influenza Type B (PCR) RSV RNA Qual (PCR) SARS-CoV-2 RNA (RT-PCR) Blood Type Antibody Screen Crossmatch 02/15/22 02/15/22 02/16/22 06:32 13:41 08:02 WBC RBC Hgb Hct MCV MCH MCHC RDW Plt Count MPV Immature Gran % (Auto) Neut % (Auto) Lymph % (Auto) [place] % (Auto) Eos % (Auto) Baso % (Auto) Lymph # (Auto) [place] # (Auto) Eos # (Auto) Baso # (Auto) Abs Immat Gran (auto) Absolute Neuts (auto) Absolute Nucleated RBC Nucleated RBC % (auto) PT INR APTT O2 Saturation ABG pH at Pt Temp ABG pCO2 at Pt Temp ABG pO2 at Pt Temp ABG HCO3 ABG Base Excess (Actual) VBG pH VBG pCO2 VBG pO2 VBG HCO3 VBG O2 Saturation VBG Base Excess Sodium 142 Potassium 4.7 D Chloride 113 H Carbon Dioxide 18 L Anion Gap 16 BUN 26 H Creatinine 1.72 H Estim Creat Clear Calc 34.0 Estimated GFR 38 POC Glucose Random Glucose 71 D Fasting Glucose Lactic Acid Calcium 9.7 D Ionized Calcium Phosphorus 2.6 L Magnesium 2.2 Total Bilirubin Direct Bilirubin AST ALT Alkaline Phosphatase Ammonia 22 Troponin I High Sens Total Protein Albumin 2.7 L Triglycerides Vitamin B12 443 25-OH Vitamin D Total TSH PTH Intact Calcium (PTH Intact) PTH Related Protein Urine Color Urine Appearance Urine pH Ur Specific [place] Urine Protein Urine Glucose (UA) Urine Ketones Urine Blood Urine Nitrite Ur Leukocyte Esterase Urine RBC Urine WBC Ur Squamous Epith Cells Urine Bacteria Hyaline Casts Urine Yeast CSF Tube Number CSF Volume CSF Appearance CSF Color CSF WBC CSF RBC CSF Lymphocytes CSF Appearance (b) CSF Glucose CSF Total Protein CSF C.neoform/gat PCR CSF CMV DNA (PCR) CSF Enterovirus (PCR) CSF E. coli K1 (PCR) CSF H. influenzae (PCR) CSF HSV I (PCR) CSF HSV II (PCR) CSF HHV 6 (PCR) CSF L.monocytogenes PCR CSF N. meningitidis PCR CSF Parechovirus (PCR) CSF S. agalactiae (PCR) CSF S. pneumoniae (PCR) CSF VZV (PCR) Influenza Type A (PCR) Influenza Type B (PCR) RSV RNA Qual (PCR) SARS-CoV-2 RNA (RT-PCR) Blood Type Antibody Screen Crossmatch 02/16/22 02/17/22 02/17/22 14:43 06:10 06:10 WBC 4.0 L RBC 3.03 L Hgb 8.8 L Hct 27.3 L MCV 90.1 MCH 29.0 MCHC 32.2 RDW 15.5 Plt Count 216 MPV 9.1 L Immature Gran % (Auto) Neut % (Auto) Lymph % (Auto) [place] % (Auto) Eos % (Auto) Baso % (Auto) Lymph # (Auto) [place] # (Auto) Eos # (Auto) Baso # (Auto) Abs Immat Gran (auto) Absolute Neuts (auto) Absolute Nucleated RBC 0.000 Nucleated RBC % (auto) 0.0 PT INR APTT O2 Saturation ABG pH at Pt Temp ABG pCO2 at Pt Temp ABG pO2 at Pt Temp ABG HCO3 ABG Base Excess (Actual) VBG pH VBG pCO2 VBG pO2 VBG HCO3 VBG O2 Saturation VBG Base Excess Sodium 138 Potassium 3.4 D Chloride 109 H Carbon Dioxide 22 Anion Gap 10 L BUN 25 H Creatinine 1.57 H Estim Creat Clear Calc 37.2 Estimated GFR 43 POC Glucose 67 Random Glucose 91 Fasting Glucose Lactic Acid Calcium 9.5 Ionized Calcium Phosphorus Magnesium Total Bilirubin Direct Bilirubin AST ALT Alkaline Phosphatase Ammonia Troponin I High Sens Total Protein Albumin Triglycerides Vitamin B12 25-OH Vitamin D Total TSH PTH Intact Calcium (PTH Intact) PTH Related Protein Urine Color Urine Appearance Urine pH Ur Specific [place] Urine Protein Urine Glucose (UA) Urine Ketones Urine Blood Urine Nitrite Ur Leukocyte Esterase Urine RBC Urine WBC Ur Squamous Epith Cells Urine Bacteria Hyaline Casts Urine Yeast CSF Tube Number CSF Volume CSF Appearance CSF Color CSF WBC CSF RBC CSF Lymphocytes CSF Appearance (b) CSF Glucose CSF Total Protein CSF C.neoform/gat PCR CSF CMV DNA (PCR) CSF Enterovirus (PCR) CSF E. coli K1 (PCR) CSF H. influenzae (PCR) CSF HSV I (PCR) CSF HSV II (PCR) CSF HHV 6 (PCR) CSF L.monocytogenes PCR CSF N. meningitidis PCR CSF Parechovirus (PCR) CSF S. agalactiae (PCR) CSF S. pneumoniae (PCR) CSF VZV (PCR) Influenza Type A (PCR) Influenza Type B (PCR) RSV RNA Qual (PCR) SARS-CoV-2 RNA (RT-PCR) Blood Type Antibody Screen Crossmatch 02/17/22 02/17/22 02/17/22 06:10 10:22 15:21 WBC RBC Hgb Hct MCV MCH MCHC RDW Plt Count MPV Immature Gran % (Auto) Neut % (Auto) Lymph % (Auto) [place] % (Auto) Eos % (Auto) Baso % (Auto) Lymph # (Auto) [place] # (Auto) Eos # (Auto) Baso # (Auto) Abs Immat Gran (auto) Absolute Neuts (auto) Absolute Nucleated RBC Nucleated RBC % (auto) PT 12.9 INR 1.1 APTT O2 Saturation 99.0 ABG pH at Pt Temp 7.43 ABG pCO2 at Pt Temp 33 ABG pO2 at Pt Temp 99 ABG HCO3 22 ABG Base Excess (Actual) -1.5 VBG pH VBG pCO2 VBG pO2 VBG HCO3 VBG O2 Saturation VBG Base Excess Sodium Potassium Chloride Carbon Dioxide Anion Gap BUN Creatinine Estim Creat Clear Calc Estimated GFR POC Glucose Random Glucose Fasting Glucose Lactic Acid Calcium Ionized Calcium Phosphorus 2.5 L Magnesium 2.0 Total Bilirubin Direct Bilirubin AST ALT Alkaline Phosphatase Ammonia Troponin I High Sens Total Protein Albumin 2.5 L Triglycerides 112 Vitamin B12 25-OH Vitamin D Total TSH PTH Intact Calcium (PTH Intact) PTH Related Protein Urine Color Urine Appearance Urine pH Ur Specific [place] Urine Protein Urine Glucose (UA) Urine Ketones Urine Blood Urine Nitrite Ur Leukocyte Esterase Urine RBC Urine WBC Ur Squamous Epith Cells Urine Bacteria Hyaline Casts Urine Yeast CSF Tube Number CSF Volume CSF Appearance CSF Color CSF WBC CSF RBC CSF Lymphocytes CSF Appearance (b) CSF Glucose CSF Total Protein CSF C.neoform/gat PCR CSF CMV DNA (PCR) CSF Enterovirus (PCR) CSF E. coli K1 (PCR) CSF H. influenzae (PCR) CSF HSV I (PCR) CSF HSV II (PCR) CSF HHV 6 (PCR) CSF L.monocytogenes PCR CSF N. meningitidis PCR CSF Parechovirus (PCR) CSF S. agalactiae (PCR) CSF S. pneumoniae (PCR) CSF VZV (PCR) Influenza Type A (PCR) Influenza Type B (PCR) RSV RNA Qual (PCR) SARS-CoV-2 RNA (RT-PCR) Blood Type Antibody Screen Crossmatch 02/18/22 02/18/22 02/19/22 05:34 17:19 05:13 WBC 4.0 L RBC 2.71 L Hgb 7.8 L Hct 24.0 L MCV 88.6 MCH 28.8 MCHC 32.5 RDW 15.5 Plt Count 188 MPV 9.3 L Immature Gran % (Auto) 0.3 Neut % (Auto) 56.3 Lymph % (Auto) 20.8 [place] % (Auto) 14.3 H Eos % (Auto) 7.5 H Baso % (Auto) 0.8 Lymph # (Auto) 0.8 L [place] # (Auto) 0.6 Eos # (Auto) 0.3 Baso # (Auto) 0.0 Abs Immat Gran (auto) 0.01 Absolute Neuts (auto) 2.3 Absolute Nucleated RBC 0.000 Nucleated RBC % (auto) 0.0 PT INR APTT O2 Saturation ABG pH at Pt Temp ABG pCO2 at Pt Temp ABG pO2 at Pt Temp ABG HCO3 ABG Base Excess (Actual) VBG pH VBG pCO2 VBG pO2 VBG HCO3 VBG O2 Saturation VBG Base Excess Sodium 144 Potassium 3.4 Chloride 112 H Carbon Dioxide 22 Anion Gap 13 BUN 24 H Creatinine 1.43 H Estim Creat Clear Calc 40.2 Estimated GFR 47 POC Glucose Random Glucose 128 H D Fasting Glucose Lactic Acid Calcium 9.3 Ionized Calcium Phosphorus 2.4 L Magnesium 2.0 Total Bilirubin Direct Bilirubin AST ALT Alkaline Phosphatase Ammonia Troponin I High Sens Total Protein Albumin 2.8 L Triglycerides Vitamin B12 25-OH Vitamin D Total TSH PTH Intact Calcium (PTH Intact) PTH Related Protein 15 Urine Color Urine Appearance Urine pH Ur Specific [place] Urine Protein Urine Glucose (UA) Urine Ketones Urine Blood Urine Nitrite Ur Leukocyte Esterase Urine RBC Urine WBC Ur Squamous Epith Cells Urine Bacteria Hyaline Casts Urine Yeast CSF Tube Number CSF Volume CSF Appearance CSF Color CSF WBC CSF RBC CSF Lymphocytes CSF Appearance (b) CSF Glucose CSF Total Protein CSF C.neoform/gat PCR CSF CMV DNA (PCR) CSF Enterovirus (PCR) CSF E. coli K1 (PCR) CSF H. influenzae (PCR) CSF HSV I (PCR) CSF HSV II (PCR) CSF HHV 6 (PCR) CSF L.monocytogenes PCR CSF N. meningitidis PCR CSF Parechovirus (PCR) CSF S. agalactiae (PCR) CSF S. pneumoniae (PCR) CSF VZV (PCR) Influenza Type A (PCR) Influenza Type B (PCR) RSV RNA Qual (PCR) SARS-CoV-2 RNA (RT-PCR) Blood Type Antibody Screen Crossmatch 02/19/22 02/19/22 02/19/22 05:13 05:13 05:14 WBC RBC Hgb Hct MCV MCH MCHC RDW Plt Count MPV Immature Gran % (Auto) Neut % (Auto) Lymph % (Auto) [place] % (Auto) Eos % (Auto) Baso % (Auto) Lymph # (Auto) [place] # (Auto) Eos # (Auto) Baso # (Auto) Abs Immat Gran (auto) Absolute Neuts (auto) Absolute Nucleated RBC Nucleated RBC % (auto) PT INR APTT O2 Saturation ABG pH at Pt Temp ABG pCO2 at Pt Temp ABG pO2 at Pt Temp ABG HCO3 ABG Base Excess (Actual) VBG pH 7.45 H VBG pCO2 34 VBG pO2 42 VBG HCO3 24 VBG O2 Saturation 71.0 VBG Base Excess 0.6 Sodium 144 Potassium 3.6 Chloride 113 H Carbon Dioxide 25 Anion Gap 10 L BUN 25 H Creatinine 1.28 Estim Creat Clear Calc 44.9 Estimated GFR 54 POC Glucose Random Glucose 116 H Fasting Glucose Lactic Acid Calcium 9.4 Ionized Calcium Phosphorus 2.5 L Magnesium 1.8 Total Bilirubin Direct Bilirubin AST ALT Alkaline Phosphatase Ammonia Troponin I High Sens Total Protein Albumin 3.5 Triglycerides Vitamin B12 25-OH Vitamin D Total 23.5 TSH PTH Intact Calcium (PTH Intact) PTH Related Protein Urine Color Urine Appearance Urine pH Ur Specific [place] Urine Protein Urine Glucose (UA) Urine Ketones Urine Blood Urine Nitrite Ur Leukocyte Esterase Urine RBC Urine WBC Ur Squamous Epith Cells Urine Bacteria Hyaline Casts Urine Yeast CSF Tube Number CSF Volume CSF Appearance CSF Color CSF WBC CSF RBC CSF Lymphocytes CSF Appearance (b) CSF Glucose CSF Total Protein CSF C.neoform/gat PCR CSF CMV DNA (PCR) CSF Enterovirus (PCR) CSF E. coli K1 (PCR) CSF H. influenzae (PCR) CSF HSV I (PCR) CSF HSV II (PCR) CSF HHV 6 (PCR) CSF L.monocytogenes PCR CSF N. meningitidis PCR CSF Parechovirus (PCR) CSF S. agalactiae (PCR) CSF S. pneumoniae (PCR) CSF VZV (PCR) Influenza Type A (PCR) Influenza Type B (PCR) RSV RNA Qual (PCR) SARS-CoV-2 RNA (RT-PCR) Blood Type Antibody Screen Crossmatch 02/19/22 02/19/22 02/19/22 09:09 13:47 13:47 WBC RBC Hgb Hct MCV MCH MCHC RDW Plt Count MPV Immature Gran % (Auto) Neut % (Auto) Lymph % (Auto) [place] % (Auto) Eos % (Auto) Baso % (Auto) Lymph # (Auto) [place] # (Auto) Eos # (Auto) Baso # (Auto) Abs Immat Gran (auto) Absolute Neuts (auto) Absolute Nucleated RBC Nucleated RBC % (auto) PT 13.5 H INR 1.2 H APTT 26.7 O2 Saturation ABG pH at Pt Temp ABG pCO2 at Pt Temp ABG pO2 at Pt Temp ABG HCO3 ABG Base Excess (Actual) VBG pH VBG pCO2 VBG pO2 VBG HCO3 VBG O2 Saturation VBG Base Excess Sodium Potassium Chloride Carbon Dioxide Anion Gap BUN Creatinine Estim Creat Clear Calc Estimated GFR POC Glucose Random Glucose Fasting Glucose Lactic Acid Calcium Ionized Calcium Phosphorus Magnesium Total Bilirubin Direct Bilirubin AST ALT Alkaline Phosphatase Ammonia Troponin I High Sens Total Protein Albumin Triglycerides Vitamin B12 25-OH Vitamin D Total TSH PTH Intact Calcium (PTH Intact) PTH Related Protein Urine Color Urine Appearance Urine pH Ur Specific [place] Urine Protein Urine Glucose (UA) Urine Ketones Urine Blood Urine Nitrite Ur Leukocyte Esterase Urine RBC Urine WBC Ur Squamous Epith Cells Urine Bacteria Hyaline Casts Urine Yeast CSF Tube Number 2 1 CSF Volume 2.0 CSF Appearance CLEAR CSF Color COLORLESS CSF WBC 3 CSF RBC 10 CSF Lymphocytes 100 CSF Appearance (b) Clear, Colorless CSF Glucose 59 CSF Total Protein 66.0 H CSF C.neoform/gat PCR CSF CMV DNA (PCR) CSF Enterovirus (PCR) CSF E. coli K1 (PCR) CSF H. influenzae (PCR) CSF HSV I (PCR) CSF HSV II (PCR) CSF HHV 6 (PCR) CSF L.monocytogenes PCR CSF N. meningitidis PCR CSF Parechovirus (PCR) CSF S. agalactiae (PCR) CSF S. pneumoniae (PCR) CSF VZV (PCR) Influenza Type A (PCR) Influenza Type B (PCR) RSV RNA Qual (PCR) SARS-CoV-2 RNA (RT-PCR) Blood Type Antibody Screen Crossmatch 02/19/22 02/19/22 02/20/22 13:47 13:47 09:25 WBC RBC Hgb Hct MCV MCH MCHC RDW Plt Count MPV Immature Gran % (Auto) Neut % (Auto) Lymph % (Auto) [place] % (Auto) Eos % (Auto) Baso % (Auto) Lymph # (Auto) [place] # (Auto) Eos # (Auto) Baso # (Auto) Abs Immat Gran (auto) Absolute Neuts (auto) Absolute Nucleated RBC Nucleated RBC % (auto) PT INR APTT O2 Saturation ABG pH at Pt Temp ABG pCO2 at Pt Temp ABG pO2 at Pt Temp ABG HCO3 ABG Base Excess (Actual) VBG pH VBG pCO2 VBG pO2 VBG HCO3 VBG O2 Saturation VBG Base Excess Sodium Potassium Chloride Carbon Dioxide Anion Gap BUN Creatinine Estim Creat Clear Calc Estimated GFR POC Glucose Random Glucose Fasting Glucose Lactic Acid Calcium Ionized Calcium 5.8 H Phosphorus Magnesium Total Bilirubin Direct Bilirubin AST ALT Alkaline Phosphatase Ammonia Troponin I High Sens Total Protein Albumin Triglycerides Vitamin B12 25-OH Vitamin D Total TSH PTH Intact Calcium (PTH Intact) PTH Related Protein Urine Color Urine Appearance Urine pH Ur Specific [place] Urine Protein Urine Glucose (UA) Urine Ketones Urine Blood Urine Nitrite Ur Leukocyte Esterase Urine RBC Urine WBC Ur Squamous Epith Cells Urine Bacteria Hyaline Casts Urine Yeast CSF Tube Number 4 CSF Volume 2.0 CSF Appearance CLEAR CSF Color COLORLESS CSF WBC 3 CSF RBC 6 CSF Lymphocytes 100 CSF Appearance (b) CSF Glucose CSF Total Protein CSF C.neoform/gat PCR Not Detected CSF CMV DNA (PCR) Not Detected CSF Enterovirus (PCR) Not Detected CSF E. coli K1 (PCR) Not Detected CSF H. influenzae (PCR) Not Detected CSF HSV I (PCR) Not Detected CSF HSV II (PCR) Not Detected CSF HHV 6 (PCR) Not Detected CSF L.monocytogenes PCR Not Detected CSF N. meningitidis PCR Not Detected CSF Parechovirus (PCR) Not Detected CSF S. agalactiae (PCR) Not Detected CSF S. pneumoniae (PCR) Not Detected CSF VZV (PCR) Not Detected Influenza Type A (PCR) Influenza Type B (PCR) RSV RNA Qual (PCR) SARS-CoV-2 RNA (RT-PCR) Blood Type Antibody Screen Crossmatch 02/20/22 02/20/22 02/21/22 09:25 09:25 07:34 WBC 4.5 L RBC 3.08 L Hgb 9.0 L Hct 27.0 L MCV 87.7 MCH 29.2 MCHC 33.3 RDW 15.8 Plt Count 195 MPV 9.0 L Immature Gran % (Auto) Neut % (Auto) Lymph % (Auto) [place] % (Auto) Eos % (Auto) Baso % (Auto) Lymph # (Auto) [place] # (Auto) Eos # (Auto) Baso # (Auto) Abs Immat Gran (auto) Absolute Neuts (auto) Absolute Nucleated RBC 0.000 Nucleated RBC % (auto) 0.0 PT INR APTT O2 Saturation ABG pH at Pt Temp ABG pCO2 at Pt Temp ABG pO2 at Pt Temp ABG HCO3 ABG Base Excess (Actual) VBG pH VBG pCO2 VBG pO2 VBG HCO3 VBG O2 Saturation VBG Base Excess Sodium 141 138 Potassium 4.1 4.1 Chloride 112 H 111 H Carbon Dioxide 24 21 L Anion Gap 9 L 10 L BUN 28 H 32 H Creatinine 1.22 1.29 Estim Creat Clear Calc 46.3 44.0 Estimated GFR 57 53 POC Glucose Random Glucose 104 146 H Fasting Glucose Lactic Acid Calcium 9.5 9.5 Ionized Calcium Phosphorus 3.1 2.8 Magnesium 2.1 2.2 Total Bilirubin 0.8 Direct Bilirubin AST 17 ALT 11 Alkaline Phosphatase 47 Ammonia Troponin I High Sens Total Protein 6.7 Albumin 3.3 L 3.3 L Triglycerides 70 Vitamin B12 25-OH Vitamin D Total TSH PTH Intact Calcium (PTH Intact) PTH Related Protein Urine Color Urine Appearance Urine pH Ur Specific [place] Urine Protein Urine Glucose (UA) Urine Ketones Urine Blood Urine Nitrite Ur Leukocyte Esterase Urine RBC Urine WBC Ur Squamous Epith Cells Urine Bacteria Hyaline Casts Urine Yeast CSF Tube Number CSF Volume CSF Appearance CSF Color CSF WBC CSF RBC CSF Lymphocytes CSF Appearance (b) CSF Glucose CSF Total Protein CSF C.neoform/gat PCR CSF CMV DNA (PCR) CSF Enterovirus (PCR) CSF E. coli K1 (PCR) CSF H. influenzae (PCR) CSF HSV I (PCR) CSF HSV II (PCR) CSF HHV 6 (PCR) CSF L.monocytogenes PCR CSF N. meningitidis PCR CSF Parechovirus (PCR) CSF S. agalactiae (PCR) CSF S. pneumoniae (PCR) CSF VZV (PCR) Influenza Type A (PCR) Influenza Type B (PCR) RSV RNA Qual (PCR) SARS-CoV-2 RNA (RT-PCR) Blood Type Antibody Screen Crossmatch 02/22/22 02/22/22 02/23/22 07:49 07:49 12:59 WBC 5.8 RBC 3.37 L Hgb 9.8 L Hct 29.2 L MCV 86.6 MCH 29.1 MCHC 33.6 RDW 16.4 H Plt Count 201 MPV 9.5 Immature Gran % (Auto) 0.5 H Neut % (Auto) 70.2 Lymph % (Auto) 12.2 L [place] % (Auto) 11.6 H Eos % (Auto) 5.2 H Baso % (Auto) 0.3 Lymph # (Auto) 0.7 L [place] # (Auto) 0.7 Eos # (Auto) 0.3 Baso # (Auto) 0.0 Abs Immat Gran (auto) 0.03 Absolute Neuts (auto) 4.1 Absolute Nucleated RBC 0.000 Nucleated RBC % (auto) 0.0 PT INR APTT O2 Saturation ABG pH at Pt Temp ABG pCO2 at Pt Temp ABG pO2 at Pt Temp ABG HCO3 ABG Base Excess (Actual) VBG pH VBG pCO2 VBG pO2 VBG HCO3 VBG O2 Saturation VBG Base Excess Sodium 136 138 Potassium 4.6 4.3 Chloride 112 H 112 H Carbon Dioxide 19 L 20 L Anion Gap 10 L 10 L BUN 36 H 49 H D Creatinine 1.23 1.37 Estim Creat Clear Calc 45.8 41.0 Estimated GFR 56 50 POC Glucose Random Glucose 172 H 165 H Fasting Glucose Lactic Acid Calcium 9.6 9.8 Ionized Calcium Phosphorus 2.4 L 3.3 Magnesium 2.2 2.4 Total Bilirubin Direct Bilirubin AST ALT Alkaline Phosphatase Ammonia Troponin I High Sens Total Protein Albumin 3.4 L Triglycerides Vitamin B12 25-OH Vitamin D Total TSH PTH Intact Calcium (PTH Intact) PTH Related Protein Urine Color Urine Appearance Urine pH Ur Specific [place] Urine Protein Urine Glucose (UA) Urine Ketones Urine Blood Urine Nitrite Ur Leukocyte Esterase Urine RBC Urine WBC Ur Squamous Epith Cells Urine Bacteria Hyaline Casts Urine Yeast CSF Tube Number CSF Volume CSF Appearance CSF Color CSF WBC CSF RBC CSF Lymphocytes CSF Appearance (b) CSF Glucose CSF Total Protein CSF C.neoform/gat PCR CSF CMV DNA (PCR) CSF Enterovirus (PCR) CSF E. coli K1 (PCR) CSF H. influenzae (PCR) CSF HSV I (PCR) CSF HSV II (PCR) CSF HHV 6 (PCR) CSF L.monocytogenes PCR CSF N. meningitidis PCR CSF Parechovirus (PCR) CSF S. agalactiae (PCR) CSF S. pneumoniae (PCR) CSF VZV (PCR) Influenza Type A (PCR) Influenza Type B (PCR) RSV RNA Qual (PCR) SARS-CoV-2 RNA (RT-PCR) Blood Type Antibody Screen Crossmatch 02/24/22 02/25/22 02/26/22 06:04 07:09 07:56 WBC RBC Hgb Hct MCV MCH MCHC RDW Plt Count MPV Immature Gran % (Auto) Neut % (Auto) Lymph % (Auto) [place] % (Auto) Eos % (Auto) Baso % (Auto) Lymph # (Auto) [place] # (Auto) Eos # (Auto) Baso # (Auto) Abs Immat Gran (auto) Absolute Neuts (auto) Absolute Nucleated RBC Nucleated RBC % (auto) PT INR APTT O2 Saturation ABG pH at Pt Temp ABG pCO2 at Pt Temp ABG pO2 at Pt Temp ABG HCO3 ABG Base Excess (Actual) VBG pH VBG pCO2 VBG pO2 VBG HCO3 VBG O2 Saturation VBG Base Excess Sodium 140 137 138 Potassium 4.2 4.6 4.5 Chloride 113 H 111 H 111 H Carbon Dioxide 18 L 18 L 17 L Anion Gap 13 13 15 BUN 51 H 54 H 63 H Creatinine 1.24 1.11 1.22 Estim Creat Clear Calc 46.0 50.9 43.9 Estimated GFR 56 > 60 57 POC Glucose Random Glucose 164 H 184 H 215 H Fasting Glucose Lactic Acid Calcium 9.6 9.7 9.7 Ionized Calcium Phosphorus 3.2 2.9 3.8 Magnesium 2.4 2.4 2.4 Total Bilirubin 0.5 0.6 0.6 Direct Bilirubin AST 12 10 12 ALT 8 7 8 Alkaline Phosphatase 48 57 56 Ammonia Troponin I High Sens Total Protein 6.6 7.0 7.1 Albumin 3.2 L 3.4 L 3.4 L Triglycerides 72 Vitamin B12 25-OH Vitamin D Total TSH PTH Intact Calcium (PTH Intact) PTH Related Protein Urine Color Urine Appearance Urine pH Ur Specific [place] Urine Protein Urine Glucose (UA) Urine Ketones Urine Blood Urine Nitrite Ur Leukocyte Esterase Urine RBC Urine WBC Ur Squamous Epith Cells Urine Bacteria Hyaline Casts Urine Yeast CSF Tube Number CSF Volume CSF Appearance CSF Color CSF WBC CSF RBC CSF Lymphocytes CSF Appearance (b) CSF Glucose CSF Total Protein CSF C.neoform/gat PCR CSF CMV DNA (PCR) CSF Enterovirus (PCR) CSF E. coli K1 (PCR) CSF H. influenzae (PCR) CSF HSV I (PCR) CSF HSV II (PCR) CSF HHV 6 (PCR) CSF L.monocytogenes PCR CSF N. meningitidis PCR CSF Parechovirus (PCR) CSF S. agalactiae (PCR) CSF S. pneumoniae (PCR) CSF VZV (PCR) Influenza Type A (PCR) Influenza Type B (PCR) RSV RNA Qual (PCR) SARS-CoV-2 RNA (RT-PCR) Blood Type Antibody Screen Crossmatch 02/27/22 07:00 WBC RBC Hgb Hct MCV MCH MCHC RDW Plt Count MPV Immature Gran % (Auto) Neut % (Auto) Lymph % (Auto) [place] % (Auto) Eos % (Auto) Baso % (Auto) Lymph # (Auto) [place] # (Auto) Eos # (Auto) Baso # (Auto) Abs Immat Gran (auto) Absolute Neuts (auto) Absolute Nucleated RBC Nucleated RBC % (auto) PT INR APTT O2 Saturation ABG pH at Pt Temp ABG pCO2 at Pt Temp ABG pO2 at Pt Temp ABG HCO3 ABG Base Excess (Actual) VBG pH VBG pCO2 VBG pO2 VBG HCO3 VBG O2 Saturation VBG Base Excess Sodium 137 Potassium 4.1 Chloride 112 H Carbon Dioxide 18 L Anion Gap 11 L BUN 69 H Creatinine 1.12 Estim Creat Clear Calc 51.6 Estimated GFR > 60 POC Glucose Random Glucose 178 H Fasting Glucose Lactic Acid Calcium 9.2 Ionized Calcium Phosphorus 3.7 Magnesium 2.3 Total Bilirubin Direct Bilirubin AST ALT Alkaline Phosphatase Ammonia Troponin I High Sens Total Protein Albumin Triglycerides Vitamin B12 25-OH Vitamin D Total TSH PTH Intact Calcium (PTH Intact) PTH Related Protein Urine Color Urine Appearance Urine pH Ur Specific [place] Urine Protein Urine Glucose (UA) Urine Ketones Urine Blood Urine Nitrite Ur Leukocyte Esterase Urine RBC Urine WBC Ur Squamous Epith Cells Urine Bacteria Hyaline Casts Urine Yeast CSF Tube Number CSF Volume CSF Appearance CSF Color CSF WBC CSF RBC CSF Lymphocytes CSF Appearance (b) CSF Glucose CSF Total Protein CSF C.neoform/gat PCR CSF CMV DNA (PCR) CSF Enterovirus (PCR) CSF E. coli K1 (PCR) CSF H. influenzae (PCR) CSF HSV I (PCR) CSF HSV II (PCR) CSF HHV 6 (PCR) CSF L.monocytogenes PCR CSF N. meningitidis PCR CSF Parechovirus (PCR) CSF S. agalactiae (PCR) CSF S. pneumoniae (PCR) CSF VZV (PCR) Influenza Type A (PCR) Influenza Type B (PCR) RSV RNA Qual (PCR) SARS-CoV-2 RNA (RT-PCR) Blood Type Antibody Screen Crossmatch Assessment and Plan Final Anesthetic Review Family History of Problems with Anesthesia: No History of Problems with Anesthesia: No ASA Class: III Final Preanesthetic Review: No Changes in Pt Med Stat, Consent Obtained/Reviewed, Anes Risks/Benef Reviewed and DNR Form (If Appl.) Patient Risk: Intermediate Procedure Risk: Low Anesthetic Plan Anesthetic Plan: MAC: Disposition: Standard PACU
--- NOTE | 2022-02-28 15:03 | HO.POSTANES ---
Post Anesthesia Evaluation Post Anesthesia Evaluation Vital Signs: Vital Signs Temp Pulse Resp BP Pulse Ox O2 Del Method O2 Flow Rate 02/28/22 14:56 98.0 F 77 16 133/58 L 99 Nasal Cannula 2 02/28/22 12:01 98.1 F 72 20 159/61 H 98 Room Air 02/28/22 11:28 97.2 F 73 15 143/62 H 97 Room Air 02/28/22 07:36 98.7 F 75 15 124/58 L 98 Room Air 02/28/22 04:00 98.3 F 77 18 130/66 97 Room Air Anesthesia: Monitored Pain Control: Satisfactory Nausea/Vomiting: None Hydration: Adequate Anesthesia-Related Issues: No Anes. Related Issues
[2022-02-28 19:57] LABS: Anion Gap 14 (12-20); Blood Urea Nitrogen 64 mg/dL (9-16); Calcium 8.9 mg/dL (8.4-10.2); Carbon Dioxide 18 mmol/L (22-29); Chloride 110 mmol/L (96-108); Estimated Glomerular Filt Rate > 60; Glucose Random 229 mg/dL (60-115); Magnesium 2.2 mg/dL (1.6-2.6); Phosphorus 4.6 mg/dL (2.7-4.5); Potassium 5.2 mmol/L (3.3-5.1); Sodium 137 mmol/L (135-145)
[2022-03-01] MEDS: Fat Emulsions 20% 250 ML 25 ML IV (00:11)
[2022-03-01] MEDS: 0.9 % Sodium Chloride Flush 10 ML SYRINGE 5 ML IVFLUSH ×3 (00:16→20:22)
[2022-03-01] MEDS: 0.9 % Sodium Chloride Flush 3 ML SYRINGE IVFLUSH ×2 (00:16→13:55)
[2022-03-01 03:10] VITALS: BP 132/66; PULSE 79; RESP 16; TEMP 36.6; O2SAT 99
[2022-03-01] MEDS: levETIRAcetam in NaCl (iso-os) 1,000 MG/100 ML PIGGYBACK 400 MG IV ×2 (04:48→16:24)
[2022-03-01 06:00] VITALS: BMI 20.9; BMI 21.0
[2022-03-01 06:50] LABS: Hematocrit 28.5 % (42.0-52.0); Hemoglobin 9.6 g/dl (14.0-18.0); Mean Corpuscular HGB Conc 33.7 g/dl (31.0-36.0); Mean Corpuscular Hemoglobin 30.1 pg (27.0-33.0); Mean Corpuscular Volume 89.3 fL (80.0-98.0); Mean Platelet Volume 9.8 fL (9.4-12.4); Platelet Count 225 X10*3/uL (160-400); Red Blood Count 3.19 X10*6/uL (4.60-5.80); Red Cell Distribution Width 19.4 % (11.0-16.0)
[2022-03-01 07:12] LABS: Anion Gap 11 (12-20); Blood Urea Nitrogen 61 mg/dL (9-16); Calcium 8.8 mg/dL (8.4-10.2); Carbon Dioxide 18 mmol/L (22-29); Chloride 110 mmol/L (96-108); Creatinine Clr Calc Pharmacy 53.3; Estimated Glomerular Filt Rate > 60; Glucose Fasting 159 mg/dL (60-99); Potassium 4.4 mmol/L (3.3-5.1); Sodium 135 mmol/L (135-145)
[2022-03-01 07:18] VITALS: BP 148/70; PULSE 77; RESP 17; TEMP 36.8; O2SAT 98
--- NOTE | 2022-03-01 08:48 | P.PNGS_ITS ---
Subjective Subjective Date of Service: 03/01/22 <Milli Douglass PA-C - Last Filed: 03/01/22 08:51> 03/01/22 <Mainor Caballero MD - Last Filed: 03/01/22 12:29> Interval history: Sleeping in bed. <Milli Douglass PA-C - Last Filed: 03/01/22 08:51> Physical Exam Vital Signs: Vital Signs: Last Vital Signs Temp 98.2 F 03/01/22 07:18 Pulse 77 03/01/22 07:18 Resp 17 03/01/22 07:18 BP 148/70 H 03/01/22 07:18 Pulse Ox 98 03/01/22 07:18 O2 Del Method 03/01/22 07:18 O2 Flow Rate 2 02/28/22 16:00 BMI result Body Mass Index 20.9 <Milli Douglass PA-C - Last Filed: 03/01/22 08:51> Const: General: comfortable and no acute distress <MARINO Alatorre - Last Filed: 03/01/22 08:51> GI: Other: PEG tube in place <Milli Douglass PA-C - Last Filed: 03/01/22 08:51> Inspection: No distended <Milli Douglass PA-C - Last Filed: 03/01/22 08:51> Palpation (GI): Soft to palpation, Tenderness to palpation present (GI) (mild, grimaces), no guarding and not rigid <Milli Douglass PA-C - Last Filed: 03/01/22 08:51> Skin: General skin exam: no rashes or lesions noted <Milli Douglass PA-C - Last Filed: 03/01/22 08:51> Extrem: General: Yes no clubbing, cyanosis or edema <ABDIAS Alatorre Last Filed: 03/01/22 08:51> Objective Data Active Medications Artificial Tears (Artificial Tears 15 Ml Drops) 2 drop EYE-BOTH Q4H MIKKI Last Admin: 03/01/22 07:30 Dose: Not Given Documented By: KAREN Non-Admin Reason: Patient Asleep Enoxaparin Sodium (Enoxaparin Sodium 40 Mg/0.4 Ml Syringe) 40 mg SUBCUT Q24H [facility] Hydralazine HCl (Hydralazine Hcl 20 Mg/Ml Vial) 10 mg IVPUSH Q6H PRN; Protocol PRN Reason: Sbp > 180 Levetiracetam (Keppra) 1,000 mg in 100 mls @ 400 mls/hr IV Q12H [facility] Last Infusion: 03/01/22 05:24 Dose: 0 mls/hr Documented By: ISA Magnesium Sulfate 10 meq/Potassium Phosphate 30 mmol/Calcium Gluconate 9.3 meq/Sodium Acetate 30 meq/ Sodium Phosphate 20 mmol/ Potassium Acetate 20 meq/ Multivitamins 12 ml/ Trace Metals 1.2 ml/Amino Acids/Dextrose 1,680 mls @ 70 mls/hr IV DAILY@1800 [facility] Stop: 03/01/22 17:59 Last Admin: 02/28/22 18:15 Dose: 70 mls/hr Documented By: GERARD Methylprednisolone Sodium Succinate (Methylprednisolone Sod Succ 125 Mg/2 Ml Vial) 60 mg IVPUSH DAILY [facility] Stop: 03/11/22 09:01 Last Admin: 02/28/22 08:50 Dose: 60 mg Documented By: GERARD Morphine Sulfate (Morphine Sulfate 2 Mg/Ml Cartridge) 2 mg IVPUSH Q2H PRN; Protocol PRN Reason: Pain, Severe (Pain Scale 7-10) Pharmacy Consult (Consult Rx Perform Med Rec) 1 each MISCELLANE ONCE PRN PRN Reason: Consult order Sodium Chloride (0.9 % Sodium Chloride Flush 3 Ml Syringe) 3 ml IVFLUSH QSHIFT [facility] Last Admin: 03/01/22 07:30 Dose: Not Given Documented By: KAREN Non-Admin Reason: See Note Sodium Chloride (0.9 % Sodium Chloride Flush 10 Ml Syringe) 5 ml IVFLUSH TID [facility] Last Admin: 03/01/22 07:52 Dose: Not Given Documented By: KAREN Non-Admin Reason: See Note <Milli Douglass PA-C - Last Filed: 03/01/22 08:51> Labs CBC & Chem 7: : 03/01/22 06:21 03/01/22 06:21 <ABDIAS Alatorre Last Filed: 03/01/22 08:51> Labs: Laboratory Results - last 24 hr 02/28/22 03/01/22 03/01/22 19:25 06:21 06:21 MCV 89.3 MCH 30.1 MCHC 33.7 RDW 19.4 H Plt Count 225 MPV 9.8 Absolute Nucleated RBC 0.000 Nucleated RBC % (auto) 0.0 Anion Gap 14 11 L Estim Creat Clear Calc 52.0 53.3 Estimated GFR > 60 > 60 Random Glucose 229 H Fasting Glucose 159 H Calcium 8.9 8.8 Phosphorus 4.6 H Magnesium 2.2 <Milli Douglass PA-C - Last Filed: 03/01/22 08:51> Procedures Date of Service Date of Service: 03/01/22 <Milli Douglass PA-C - Last Filed: 03/01/22 08:51> Progress Note: A&P Assessment and plan (1) Epileptic encephalopathy: Status: Acute <Milli Douglass PA-C - Last Filed: 03/01/22 08:51> Assessment and Plan: status post PEG tube placement abdomen soft peg tube in place keep external bolster snug on abdominal wall pain management okay to start tube feeds today Seen and examined independently <Mainor Caballero MD - Last Filed: 03/01/22 12:29> (2) Dementia with behavioral disturbance: Status: Acute <Milli Douglass PA-C - Last Filed: 03/01/22 08:51> (3) S/P percutaneous endoscopic gastrostomy (PEG) tube placement: Status: Acute <Milli Douglass PA-C - Last Filed: 03/01/22 08:51> Assessment and Plan: 81 year old male with multiple medical problems now POD #1 s/p PEG tube placement. He is doing well post op from surgical standpoint. PEG tube in place, abd soft. Can begin tube feeds as tolerated. <Milli Douglass PA-C - Last Filed: 03/01/22 08:51> Time Spent With Patient Time: Total time managing care of this patient today 20 minutes. <ABDIAS Alatorre Last Filed: 03/01/22 08:51> Quality Stroke Does the patient have a stroke diagnosis?: No <Milli Douglass PA-C - Last Filed: 03/01/22 08:51> VTE Prior VTE?: No <Milli Douglass PA-C - Last Filed: 03/01/22 08:51> VTE Risk Level:: Medical - moderate - high <Milli Douglass PA-C - Last Filed: 03/01/22 08:51> VTE Device Contraindication: Treatment Not Indicated <Milli Douglass PA-C - Last Filed: 03/01/22 0 8:51> VTE Drug Contraindication: N/A - Med Ordered <Milli Douglass PA-C - Last Filed: 03/01/22 08:51>
[2022-03-01] MEDS: Enoxaparin Sodium 40 MG/0.4 ML SYRINGE SUBCUT (09:02)
[2022-03-01] MEDS: methylPREDNISolone Sod Succ 125 MG/2 ML VIAL 60 MG IVPUSH (09:03)
--- NOTE | 2022-03-01 09:39 | HO.POSTANES ---
Post Anesthesia Evaluation Post Anesthesia Evaluation Vital Signs: Vital Signs Temp Pulse Resp BP Pulse Ox O2 Del Method 03/01/22 07:18 98.2 F 77 17 148/70 H 98 Room Air 03/01/22 03:10 97.8 F 79 16 132/66 99 Room Air 02/28/22 23:36 98.2 F 78 20 141/68 H 99 Room Air Anesthesia: General Mental Status: Awake Pain Control: Satisfactory Nausea/Vomiting: None Hydration: Adequate Anesthesia-Related Issues: No Anes. Related Issues
--- NOTE | 2022-03-01 10:55 | MHC.CLN ---
Addendum entered by Rajani Sloan, DARYL 03/01/22 11:04: ADDITIONAL TUBE FEED REC: FLUSH WITH FREE WATER 120 ML Q 8 HOURS. FORMULA PLUS FLUSH PROVIDES 1963 ML FREE WATER (28 ML /KG). Original Note: F/U PEG PLACED 02/28. PER SURGERY, OKAY TO START TUBE FEEDING TODAY. RECOMMEND JEVITY 1.0 AT 80ML/HR TO PROVIDE 2035KCALS (29KCALS/KG), 85G PROTEIN (1.2G/KG), 1603ML FREE WATER FROM FORMULA START FORMULA AT 20ML/HR AND INCREASE BY 10ML Q 4 HRS UNTIL MAX GOAL IS ACHIEVED. MONITOR TOLERANCE, RESIDUALS AND LYTES.
[2022-03-01 11:18] VITALS: BMI 20.9
[2022-03-01 11:25] VITALS: BP 142/67; PULSE 75; RESP 16; TEMP 36.3; O2SAT 98
[2022-03-01] MEDS: Artificial Tears 15 ML DROPS 2 DROP EYE-BOTH ×3 (13:55→20:20)
--- NOTE | 2022-03-01 14:22 | P.PNIM_ITS ---
Subjective Subjective Date of Service: 03/01/22 Interval History: seen and examined this morning follow up for epilepsy, encephalopathy eyes open, able to state name, following some commands; unable to obtain full ROS s/p feeding tube placement yesterday Physical Exam Vital Signs: Vital Signs: Last Vital Signs Temp 97.4 F 03/01/22 11:25 Pulse 75 03/01/22 11:25 Resp 16 03/01/22 11:25 BP 142/67 H 03/01/22 11:25 Pulse Ox 98 03/01/22 11:25 O2 Del Method 03/01/22 11:25 O2 Flow Rate 2 02/28/22 16:00 BMI result Body Mass Index 20.9 Const: Other: able to state name General: alert and awake Nutritional Appearance: thin Resp: Effort & Inspection: normal respiratory effort Auscultation: clear to auscultation bilaterally Cardio: Rate: regular rate Heart sounds: S1 normal heart sound present and S2 normal heart sound present GI: Other: feeding tube present Palpation (GI): Soft to palpation : Other: suprapubic catheter in place Neuro: Other: awake, able to say some words, answer some basic questions; able to state name, doesn't know where he is; does not move etremities on command but will resist movement of all 4 extremities, wiggles toes; hand grasp equal Extrem: Other: PICC left UE General: Yes no pedal edema Objective Data Active Medications Artificial Tears (Artificial Tears 15 Ml Drops) 2 drop EYE-BOTH Q4H [facility], [facility] Last Admin: 03/01/22 13:55 Dose: 2 drop Documented By: TRUNG Enoxaparin Sodium (Enoxaparin Sodium 40 Mg/0.4 Ml Syringe) 40 mg SUBCUT Q24H [facility], [facility] Last Admin: 03/01/22 09:02 Dose: 40 mg Documented By: CIARA-DASHAFA Hydralazine HCl (Hydralazine Hcl 20 Mg/Ml Vial) 10 mg IVPUSH Q6H PRN; Protocol PRN Reason: Sbp > 180 Levetiracetam (Keppra) 1,000 mg in 100 mls @ 400 mls/hr IV Q12H [facility] Last Infusion: 03/01/22 05:24 Dose: 0 mls/hr Documented By: ISA Magnesium Sulfate 10 meq/Potassium Phosphate 30 mmol/Calcium Gluconate 9.3 meq/Sodium Acetate 30 meq/ Sodium Phosphate 20 mmol/ Potassium Acetate 20 meq/ Multivitamins 12 ml/ Trace Metals 1.2 ml/Amino Acids/Dextrose 1,680 mls @ 70 mls/hr IV DAILY@1800 [facility], [facility] Stop: 03/01/22 17:59 Last Admin: 02/28/22 18:15 Dose: 70 mls/hr Documented By: BROAlexander Methylprednisolone Sodium Succinate (Methylprednisolone Sod Succ 125 Mg/2 Ml Vial) 60 mg IVPUSH DAILY [facility] Stop: 03/11/22 09:01 Last Admin: 03/01/22 09:03 Dose: 60 mg Documented By: N-SOFFA Morphine Sulfate (Morphine Sulfate 2 Mg/Ml Cartridge) 2 mg IVPUSH Q2H PRN; Protocol PRN Reason: Pain, Severe (Pain Scale 7-10) Pharmacy Consult (Consult Rx Perform Med Rec) 1 each MISCELLANE ONCE PRN PRN Reason: Consult order Sodium Chloride (0.9 % Sodium Chloride Flush 3 Ml Syringe) 3 ml IVFLUSH QSHIFT [facility] Last Admin: 03/01/22 13:55 Dose: 3 ml Documented By: TRUNG Sodium Chloride (0.9 % Sodium Chloride Flush 10 Ml Syringe) 5 ml IVFLUSH TID [facility] Last Admin: 03/01/22 13:56 Dose: 5 ml Documented By: TRUNG Labs CBC & Chem 7: 03/01/22 06:21 03/01/22 06:21 Labs: Laboratory Results - last 24 hr 02/28/22 03/01/22 03/01/22 19:25 06:21 06:21 MCV 89.3 MCH 30.1 MCHC 33.7 RDW 19.4 H Plt Count 225 MPV 9.8 Absolute Nucleated RBC 0.000 Nucleated RBC % (auto) 0.0 Anion Gap 14 11 L Estim Creat Clear Calc 52.0 53.3 Estimated GFR > 60 > 60 Random Glucose 229 H Fasting Glucose 159 H Calcium 8.9 8.8 Phosphorus 4.6 H Magnesium 2.2 Assessment and Plan (1) S/P percutaneous endoscopic gastrostomy (PEG) tube placement: Status: Acute (2) Non-convulsive status epilepticus: Status: Acute Plan 81-year-old male with 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 Review of chart demonstrates is similar to the last presentation of admission end of November. Now with persistent epileptic encephalopathy iwth steady improvements in responsiveness epileptic encephalopathy- appears to be slowly resolving with increased responsiveness. More alert, eyes opened and looking around, following some commands, able to say name Hypercalcemia resolved CT head-negative except brain volume loss which more likely goes to a dementia,MRI neg 02/17,? LP-seems ok except mildly elevated protein, meningitis panel negative B12 and TSH normal eeg-possible status epilepticus, eeg repeated with similar findings, repeated 02/22 with mild slowing but no evidence of seizure DC acyclovir Completed 3 days 1g IV solumedrol with some improvement in responsiveness. Discussed with neuro, possible lag in recovery from epilectic encephalopathy which has been treated. initiate prolonged glucocorticoid steroid taper per Neurology: 60 mg prednisone daily times 2 weeks, 40 mg prednisone daily x2 weeks, 20 mg prednisone daily x2 weeks, 10 mg prednisone daily x2 weeks, 5 mg prednisone daily x2 weeks, 2.5 mg daily x2 weeks General surgery PEG placement today 02/28/22 - will start tube feeds today. If tolerates can remove PICC discharge to short-term rehab facility with outpatient follow-up with Neurology in 6-8 weeks. Right sided facial droop- resolved Stat head CT ordered, results discussed with radiology. No acute stroke ?Lyle's paralysis UTI- resolved Pseudomonas/VRE in urine cultures s/p suprapubic cather changed due to leaking completed 14 days cefepime per ID bacteremia secondary to UTI in november 2021, this admission was negative Hypertension- reasonably controlled controlled now off meds Coronary artery disease with ischemic cardiomyopathy (chronic systolic chf) 2D echo 11/06 demonstrates an LVEF between 30 and 35% restart antiplatelet and statin when taking po DVT ppx- lovenox DNR/DNI reason for continued hospitalization:s/p PEG, starting tube feedings attending - dr. law Time Spent With Patient Time: Total time managing care of this patient today ____ minutes. Quality Stroke Does the patient have a stroke diagnosis?: No VTE Prior VTE?: No VTE Risk Level:: Medical - moderate - high VTE Device Contraindication: Treatment Not Indicated VTE Drug Contraindication: N/A - Med Ordered
[2022-03-01 15:14] VITALS: BP 137/69; PULSE 77; RESP 17; TEMP 37.3; O2SAT 98
--- NOTE | 2022-03-01 18:47 | PC.NURSE ---
Pt's TF via PEG started this afternoon, tolerating well, water flush given at 1400, no residuals upon recheck at 1800. Pt continues to be on Jevity at 20mls/hr as ordered. Currently resting in bed with no acute distress. VSS. Bed alarmed, call adame within reach. Will continue to monitor.
[2022-03-01 19:19] VITALS: BP 135/64; PULSE 70; RESP 18; TEMP 36.8; O2SAT 94
--- NOTE | 2022-03-01 22:35 | PC.NURSE ---
Per order, tube feeding diet Jevity rate increased to 40 mls/hr at 2215, no residual.
[2022-03-01 23:39] VITALS: BP 142/71; PULSE 69; RESP 16; TEMP 36.7; O2SAT 99
[2022-03-02] MEDS: 0.9 % Sodium Chloride Flush 3 ML SYRINGE IVFLUSH (00:39)
[2022-03-02] MEDS: Artificial Tears 15 ML DROPS 2 DROP EYE-BOTH ×4 (00:39→19:17)
[2022-03-02 03:38] VITALS: BP 150/70; PULSE 72; RESP 15; TEMP 36.6; O2SAT 99
[2022-03-02] MEDS: levETIRAcetam in NaCl (iso-os) 1,000 MG/100 ML PIGGYBACK 400 MG IV ×2 (05:40→16:07)
[2022-03-02 06:00] VITALS: BMI 20.9
[2022-03-02 07:34] VITALS: BP 145/65; PULSE 69; RESP 18; TEMP 36.1; O2SAT 100
[2022-03-02] MEDS: Enoxaparin Sodium 40 MG/0.4 ML SYRINGE SUBCUT (08:01)
[2022-03-02] MEDS: methylPREDNISolone Sod Succ 125 MG/2 ML VIAL 60 MG IVPUSH (08:01)
--- NOTE | 2022-03-02 10:06 | MHC.CLN ---
F/U TF STARTED YESTERDAY PT CURRENTLY TOLERATING AT 60ML/HR WITH LOW RESIDUALS PT'S GOAL JEVITY 1.0 AT 80ML/HR WITH 120ML Q 8 HRS TO PROVIDE 2035KCALS (29KCLAS/KG), 85G PROTEIN (1.2G/KG), 1963ML TOTAL FREE WATER FROM FORMULA AND FLUSHES RECOMMEND INCREASING FREE WATER FLUSHES 120 Q 6 HRS TO MEET MINIMUM FLUID NEEDS; 2083ML TOTAL WATER (30ML/KG) MONITOR TOLERANCE, RESIDUALS AND LYTES
--- NOTE | 2022-03-02 11:14 | PM.DS ---
DS: Providers Provider Date of admission: 02/07/22 18:22 Primary care physician: Obinna Moreau MD Consults: 02/08/22 09:15 Consult to Urology Routine Consulting Provider: Jordan Meeks Reason for consultation: leaking suprapubic tube Has provider been notified: Yes 02/12/22 09:55 Consult to Infectious Diseases Stat Consulting Provider: Lainey Fields Reason for consultation: recurrent psuedomans UTI Has provider been notified: Yes 02/14/22 07:34 Consult to Nephrology Routine Consulting Provider: Ramírez Headley Reason for consultation: alethea on ckd,zlq-[id number]-[id number] midline Has provider been notified: No 02/14/22 13:09 Consult to Psychiatry Routine Consulting Provider: Psych Covering Reason for consultation: dementia with beahvioural disturbances Has provider been notified: No 02/15/22 10:49 Consult to Neurology Routine Consulting Provider: [facility] Reason for consultation: encephalopathy unclear etiology Has provider been notified: No 02/16/22 13:33 Consult to Critical Care Routine Consulting Provider: Romeo Lynn Reason for consultation: status epilepticus Has provider been notified: No 02/26/22 09:30 Consult to General Surgery Routine Consulting Provider: Mainor Caballero Reason for consultation: PEG tube DS: Diagnosis Discharge Diagnosis (1) S/P percutaneous endoscopic gastrostomy (PEG) tube placement: Status: Acute (2) Non-convulsive status epilepticus: Status: Acute DS: Summary Hospital Course Hospital Course: From H&P on the day of admission 81 year old assigned male at with a history of sepsis and chronic hernandez catheter presenting to the emergency department today with dizziness and weakness. Patient states that starting yesterday he was feeling more weak and dizziness with positional changes.? 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 He had a similar presentation approximately 1 and half months ago ; urine culture consistent with Pseudomonas and he was subsequently bacteremic with the same.? He was discharged to SNF on oral Levaquin.? He was discharged to home or said he was doing well until today when physical therapy came and his legs went out from underneath him.? She felt he was repeating his same presentation and called an ambulance to transport to the emergency room.? In the emergency room he did not have a white count however he had active urine sediment.? Based on past history is, cultures were obtained and he was started on cefepime Hospital course: Initially admitted for UTI/weakness on 02/07. He was started on Cefepime due to history of Pseudomonas. Urine culture grew Pseudomonas/VRE. Blood cultures also positive for Pseudomonas. He was seen in consultation by Infectious Diseases who felt he should be treated for 14 days with IV cefepime for Pseudomonas. [place] Enterococcus faecalis was present and lower concentrations and was likely colonized and not pathogenic. He completed 14 days of IV cefepime. ALETHEA on CKD3 - improved with volume repletion. Chronic suprapubic catheter was noted to be leaking. He was seen in consultation by Urology. Initially an antispasmodic was attempted but was ineffective. He started becoming confused and Initially this was thought to be secondary to dementia. He had intermittent episodes of agitation was started on Zyprexa as needed. Was seen in consultation by Psychiatry who agreed with the above. Head CT showed volume loss. B12 and TSH were obtained were normal. Hospital course was complicated by worsening encephalopathy. MRI was obtained and was unremarkable. LP was obtained and showed only mildly elevated protein, menigoencephalitis panel was negative.He was evaluated by Neurology and had an EEG showed possible status epilepticus, eeg repeated with similar findings. He was started on Keppra. he was making purposeful movments and therefore not thought to be in status epilepticus. EEG was repeated 02/22 with mild slowing but no evidence of seizure. He was treated with 7 day course of acyclovir but mental status did not significantly improve. He was started on pulse dose of steroids which he received for 3 days with some improvement in responsiveness. At this point appears to be slowly improving with increased responsiveness. More alert, eyes opened and looking around, following some commands, able to say name. Neurology recommends prolonged glucocorticoid steroid taper: 60 mg prednisone daily times 2 weeks, 40 mg prednisone daily x2 weeks, 20 mg prednisone daily x2 weeks, 10 mg prednisone daily x2 weeks, 5 mg prednisone daily x2 weeks, 2.5 mg daily x2 weeks. Working diagnosis is encephalitis of uncertain etiology, possibly viral versus autoimmune versus paraneoplastic. He Should follow up with Neurology in 8 weeks or so. He was unable to take p.o. and a PICC line was placed and he was started on PPN.General surgery PEG placement on 02/28/22 - he is currently tollerating tube feeds. Time Spent with Patient Time attestation: Total time managing care of this patient today ____ minutes. Discharge coordination time: Greater than 30 minutes Quality: Safe Use of Opioids Does Pt have an Active Cancer Diagnosis on the Problem List?: Yes Opioid Measure Date for [facility] Report: 02/07/22 Opioid Measure Time for [facility] Report: 17:04 Quality: Stroke Does the patient have a stroke diagnosis?: No Physical Exam Vital Signs: Vital Signs: Last Vital Signs Temp 97.0 F 03/02/22 07:34 Pulse 69 03/02/22 07:34 Resp 18 03/02/22 07:34 BP 145/65 H 03/02/22 07:34 Pulse Ox 100 03/02/22 07:34 O2 Del Method 03/02/22 07:34 O2 Flow Rate 2 02/28/22 16:00 BMI result Body Mass Index 20.9 DS: Data Data Completed and Pending Completed studies during hospitalization [Text1]: Procedures Dilation of Left Ureter with Intraluminal Device, Via Natural or Artificial Opening Endoscopic (09/07/21) Drainage of Bladder with Drainage Device, Percutaneous Endoscopic Approach (10/26/21) Drainage of Left Inguinal Lymphatic, Percutaneous Approach, Diagnostic (09/07/21) Excision of Penis, Open Approach, Diagnostic (09/07/21) Extirpation of Matter from Bladder, Via Natural or Artificial Opening Endoscopic (10/26/21) Fluoroscopy of Right Kidney, Ureter and Bladder (09/07/21) Insertion of Infusion Device into Superior Vena Cava, Percutaneous Approach (10/26/21) Introduction of Vasopressor into Central Vein, Percutaneous Approach (10/26/21) Introduction of Vasopressor into Peripheral Vein, Percutaneous Approach (09/07/21) Release Penis, Open Approach (09/07/21) Removal of Intraluminal Device from Ureter, Via Natural or Artificial Opening Endoscopic (10/26/21) Ultrasonography of Superior Vena Cava, Guidance (10/26/21) Discharge Plan Discharge Anticipated Discharge Date/Time: 03/05/22 12:26 Patient Disposition: Xfer SNF Discharge Diagnosis: epileptic encephalopathy Referrals: [facility] [Outside] - 1 Week Obinna Moreau MD [Primary Care Provider] - 1 Week Discharge Medications: New polyvinyl alcohol [Artificial Tears (polyvin alc)] 1.4 % Drops 2 drp ophthalmic (eye) Q4H Qty: 1 0RF prednisone 20 mg Tablet 60 mg G-tube DAILY Qty: 90 0RF Rx Instructions: 60 mg prednisone daily times 2 weeks, 40 mg prednisone daily x2 weeks, 20 mg prednisone daily x2 weeks, 10 mg prednisone daily x2 weeks, 5 mg prednisone daily x2 weeks, 2.5 mg daily x2 weeks levetiracetam 500 mg/5 mL (5 mL) Solution 1,000 mg G-tube BID Qty: 60 0RF Continued finasteride 5 mg tablet 5 mg PO DAILY 90 Days Qty: 90 1RF Changed aspirin 81 mg Tablet,Delayed Release (Dr/Ec) 81 mg feeding tube DAILY Qty: 30 0RF rosuvastatin 10 mg tablet 10 mg feeding tube BEDTIME Qty: 30 0RF ticagrelor 90 mg Tablet 90 mg feeding tube BID Qty: 30 0RF Discontinued lisinopril 5 mg Tablet 5 mg PO DAILY terazosin 5 mg capsule 5 mg PO BEDTIME 90 Days Qty: 90 1RF Discharge Orders: Discharge Order (Routine); Ordered 03/05/22 Ordered By: Toni Garcia Diet: Advance to usual diet Activity on Discharge: As tolerated Stand Alone Forms: Patient Portal Discharge page Care Plan Goals: Full recovery from Epileptic encephalopathy Health Concerns: epileptic encephalopathy with profound confsion Plan of Treatment: 60 mg prednisone daily times 2 weeks, 40 mg prednisone daily x2 weeks, 20 mg prednisone daily x2 weeks, 10 mg prednisone daily x2 weeks, 5 mg prednisone daily x2 weeks, 2.5 mg daily x2 weeks PT'S GOAL JEVITY 1.0 AT 80ML/HR WITH 120ML Q 8 HRS TO PROVIDE 2035KCALS (29KCLAS/KG), 85G PROTEIN (1.2G/KG), 1963ML TOTAL FREE WATER FROM FORMULA AND FLUSHES RECOMMEND INCREASING FREE WATER FLUSHES 120 Q 6 HRS TO MEET MINIMUM FLUID NEEDS; 2083ML TOTAL WATER (30ML/KG) MONITOR TOLERANCE, RESIDUALS AND LYTES Assessment: as above Discharge Date/Time: 03/06/22 11:22
[2022-03-02 11:57] VITALS: BP 148/66; PULSE 70; RESP 18; TEMP 36.4; O2SAT 98
--- NOTE | 2022-03-02 12:36 | MHC.CM.PN ---
Patient was possibly ready for dc to [facility] today but the SNF cannot obtain their order for Jevity until Saturday and [facility] is unable to supply the SNF with enough Jevity to last them until Saturday when their order arrives. CM explored alternatives but there are no alternatives. RD & CM Director/Kindra are aware of this barrier to dc. Goal is to consider dc on Saturday and possibly supply the SNF with just enough Jevity to last one day until their order arrives on 03/06/22. CM will follow.
--- NOTE | 2022-03-02 14:01 | PC.NURSE ---
pt TF reached goal of 80/hr. water boluses maintained. PA informed of high residual and consistency of TF. on hold at this time. will reassess and restart.
--- NOTE | 2022-03-02 14:22 | HO.PM.IMPN ---
Subjective Subjective Date of Service: 03/02/22 Interval History: seen and examined this morning follow up for encephalopathy patient opens eyes when hearing name, slow to respond but able to answer some simple questions but unable to obtain full ROS still not following commands consistently Physical Exam Vital Signs: Vital Signs: Last Vital Signs Temp 97.6 F 03/02/22 11:57 Pulse 70 03/02/22 11:57 Resp 18 03/02/22 11:57 BP 148/66 H 03/02/22 11:57 Pulse Ox 98 03/02/22 11:57 O2 Del Method 03/02/22 11:57 O2 Flow Rate 2 02/28/22 16:00 BMI result Body Mass Index 20.9 Const: Other: able to state name General: alert and awake Nutritional Appearance: thin Resp: Effort & Inspection: normal respiratory effort Auscultation: clear to auscultation bilaterally Cardio: Rate: regular rate Heart sounds: S1 normal heart sound present and S2 normal heart sound present GI: Other: feeding tube present Palpation (GI): Soft to palpation : Other: suprapubic catheter in place Neuro: Other: awake, able to say some words, answer some basic questions; able to state name, doesn't know where he is; does not move etremities on command but will resist movement of all 4 extremities, wiggles toes; hand grasp equal Extrem: Other: PICC left UE General: Yes no pedal edema Objective Data Active Medications Artificial Tears (Artificial Tears 15 Ml Drops) 2 drop EYE-BOTH Q4H [facility] Last Admin: 03/02/22 14:03 Dose: 2 drop Documented By: KAREN Enoxaparin Sodium (Enoxaparin Sodium 40 Mg/0.4 Ml Syringe) 40 mg SUBCUT Q24H [facility] Last Admin: 03/02/22 08:01 Dose: 40 mg Documented By: KAREN Hydralazine HCl (Hydralazine Hcl 20 Mg/Ml Vial) 10 mg IVPUSH Q6H PRN; Protocol PRN Reason: Sbp > 180 Levetiracetam (Keppra) 1,000 mg in 100 mls @ 400 mls/hr IV Q12H [facility] Last Infusion: 03/02/22 06:09 Dose: 0 mls/hr Documented By: LUIS M Methylprednisolone Sodium Succinate (Methylprednisolone Sod Succ 125 Mg/2 Ml Vial) 60 mg IVPUSH DAILY [facility] Stop: 03/11/22 09:01 Last Admin: 03/02/22 08:01 Dose: 60 mg Documented By: KAREN Morphine Sulfate (Morphine Sulfate 2 Mg/Ml Cartridge) 2 mg IVPUSH Q2H PRN; Protocol PRN Reason: Pain, Severe (Pain Scale 7-10) Pharmacy Consult (Consult Rx Perform Med Rec) 1 each MISCELLANE ONCE PRN PRN Reason: Consult order Sodium Chloride (0.9 % Sodium Chloride Flush 3 Ml Syringe) 3 ml IVFLUSH QSHIFT [facility] Last Admin: 03/02/22 14:03 Dose: Not Given Documented By: KAREN Non-Admin Reason: See Note Sodium Chloride (0.9 % Sodium Chloride Flush 10 Ml Syringe) 5 ml IVFLUSH TID [facility] Last Admin: 03/02/22 10:49 Dose: Not Given Documented By: KAREN Non-Admin Reason: See Note Labs CBC & Chem 7: 03/01/22 06:21 03/01/22 06:21 Assessment and Plan (1) S/P percutaneous endoscopic gastrostomy (PEG) tube placement: Status: Acute (2) Non-convulsive status epilepticus: Status: Acute (3) Encephalopathy: Status: Acute Plan 81-year-old male with 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 Review of chart demonstrates is similar to the last presentation of admission end of November. Hospital course complicated by seizures/encephalopathy/encephalitis encephalopathy secondary to encephalitis of unclear etiology - possible viral vs autoimmune vs paraneoplastic with underlying dementia- appears to be slowly resolving with increased responsiveness CT head-negative except brain volume loss consistent with probable dementia, MRI neg 02/17? LP- mildly elevated protein otherwise negative, meningoencephalitis panel negative; CSF culture with no growth B12 and TSH normal EEG obtained 02/16 showing possible status epilepticus, repeat EEG 02/20 with similar findings - as patient still had purposeful movement, clinically was not in status epilepticus; patient started on keppra and repeat EEG 02/22 with mild slowing but no evidence of seizure s/p 7 days of acyclovir with no improvement in mental status Completed 3 days 1g IV solumedrol and then transitioned to steroid taper - plan for prolonged glucocorticoid steroid taper per Neurology: 60 mg prednisone daily times 2 weeks, 40 mg prednisone daily x2 weeks, 20 mg prednisone daily x2 weeks, 10 mg prednisone daily x2 weeks, 5 mg prednisone daily x2 weeks, 2.5 mg daily x2 weeks General surgery PEG placement today 02/28/22, tube feeding started - some increased residuals today - when tolerating feeds, change meds from IV to gtube outpatient follow-up with Neurology in 6-8 weeks Autoimmune encephalitis panel send and pending UTI- resolved Pseudomonas/VRE in urine cultures seen by ID Enterococcus faecalis was present and lower concentrations and likely represents colonization and not pathogenic. no treatment indicated completed 14 days cefepime Right sided facial droop- resolved Stat head CT ordered, results discussed with radiology. No acute stroke Hypertension controlled now off meds Hypercalcemia resolved Coronary artery disease with ischemic cardiomyopathy (chronic systolic chf) 2D echo 11/06 demonstrates an LVEF between 30 and 35% restart antiplatelet and statin when taking po DVT ppx- lovenox DNR/DNI reason for continued hospitalization:s/p PEG, starting tube feedings dispo - [facility] - likely Saturday; remove PICC when discharge confirmed attending - dr. law Time Spent With Patient Time: Total time managing care of this patient today ____ minutes. Quality Stroke Does the patient have a stroke diagnosis?: No VTE Prior VTE?: No VTE Risk Level:: Medical - moderate - high VTE Device Contraindication: Treatment Not Indicated VTE Drug Contraindication: N/A - Med Ordered
[2022-03-02 15:34] VITALS: BP 136/66; PULSE 75; RESP 18; TEMP 36.2; O2SAT 95
[2022-03-02] MEDS: 0.9 % Sodium Chloride Flush 10 ML SYRINGE 5 ML IVFLUSH (19:17)
[2022-03-02 20:00] VITALS: BP 132/66; PULSE 73; RESP 18; TEMP 36.3; O2SAT 100
[2022-03-02 23:52] VITALS: BP 119/60; PULSE 68; RESP 18; TEMP 36.3; O2SAT 98
[2022-03-03 04:00] VITALS: BP 107/57; PULSE 70; RESP 18; TEMP 36.4; O2SAT 100
[2022-03-03 06:00] VITALS: BMI 20.9
[2022-03-03] MEDS: Artificial Tears 15 ML DROPS 2 DROP EYE-BOTH ×3 (06:01→20:21)
[2022-03-03] MEDS: levETIRAcetam in NaCl (iso-os) 1,000 MG/100 ML PIGGYBACK 400 MG IV (06:01)
[2022-03-03 08:00] VITALS: BP 120/57; PULSE 70; RESP 12; TEMP 36.5; O2SAT 97
[2022-03-03 08:53] LABS: Hematocrit 30.2 % (42.0-52.0); Hemoglobin 9.9 g/dl (14.0-18.0); Mean Corpuscular HGB Conc 32.8 g/dl (31.0-36.0); Mean Corpuscular Hemoglobin 29.8 pg (27.0-33.0); Mean Platelet Volume 10.4 fL (9.4-12.4); Platelet Count 199 X10*3/uL (160-400); Red Blood Count 3.32 X10*6/uL (4.60-5.80); Red Cell Distribution Width 19.9 % (11.0-16.0); White Blood Count 5.7 X10*3/uL (4.8-10.8)
[2022-03-03] MEDS: methylPREDNISolone Sod Succ 125 MG/2 ML VIAL 60 MG IVPUSH (08:58)
[2022-03-03] MEDS: Enoxaparin Sodium 40 MG/0.4 ML SYRINGE SUBCUT (08:59)
[2022-03-03 09:08] LABS: Anion Gap 12 (12-20); Blood Urea Nitrogen 54 mg/dL (9-16); Carbon Dioxide 21 mmol/L (22-29); Chloride 109 mmol/L (96-108); Creatinine Clr Calc Pharmacy 52.8; Estimated Glomerular Filt Rate > 60; Glucose Random 166 mg/dL (60-115); Potassium 4.7 mmol/L (3.3-5.1); Sodium 137 mmol/L (135-145)
[2022-03-03 12:00] VITALS: BP 119/63; PULSE 71; RESP 12; TEMP 36.6; O2SAT 98
--- NOTE | 2022-03-03 13:26 | P.PNIM_ITS ---
Subjective Subjective Date of Service: 03/03/22 Interval History: seen and examined this morning follow up for encephalopathy/encephalitis awake, alert; still slow to respond, speaks quietly. answers full name, unsure where he is; says he is feeling lousy but unable to specify any issue. denies any pain Review of Systems Review of Systems: Yes all other systems are reviewed and are negative Cardiovascular Cardiovascular: Denies chest pain and Denies dyspnea Respiratory Respiratory: Denies dyspnea Gastrointestinal Gastrointestinal: Denies abdominal pain Physical Exam Vital Signs: Vital Signs: Last Vital Signs Temp 97.9 F 03/03/22 12:00 Pulse 71 03/03/22 12:00 Resp 12 03/03/22 12:00 BP 119/63 03/03/22 12:00 Pulse Ox 98 03/03/22 12:00 O2 Del Method 03/03/22 12:00 O2 Flow Rate 2 02/28/22 16:00 BMI result Body Mass Index 20.9 Const: Other: able to state name General: alert and awake Nutritional Appearance: thin Resp: Effort & Inspection: normal respiratory effort, no respiratory distress and no use of accessory muscles Cardio: Rate: regular rate Heart sounds: S1 normal heart sound present and S2 normal heart sound present GI: Other: feeding tube present, no surrounding erythema Inspection: No distended Palpation (GI): Soft to palpation and nontender : Other: suprapubic catheter in place Skin: Other: scab on bridge of nose, no surrounding erythema or drainage Neuro: Other: awake, able to say some words, answer some basic questions; able to state name, doesn't know where he is; does not move etremities on command but will resist movement of all 4 extremities, wiggles toes; slight hand grasp on command - equal. face symmetrical Extrem: Other: PICC present left UE no leg edema General: Yes no pedal edema Objective Data Active Medications Artificial Tears (Artificial Tears 15 Ml Drops) 2 drop EYE-BOTH Q4H [facility] Last Admin: 03/03/22 10:33 Dose: Not Given Documented By: KAREN Non-Admin Reason: Patient Refused Enoxaparin Sodium (Enoxaparin Sodium 40 Mg/0.4 Ml Syringe) 40 mg SUBCUT Q24H [facility] Last Admin: 03/03/22 08:59 Dose: 40 mg Documented By: HO.N-SOFFA Hydralazine HCl (Hydralazine Hcl 20 Mg/Ml Vial) 10 mg IVPUSH Q6H PRN; Protocol PRN Reason: Sbp > 180 Levetiracetam (Keppra) 1,000 mg in 100 mls @ 400 mls/hr IV Q12H [facility] Last Infusion: 03/03/22 06:36 Dose: 0 mls/hr Documented By: ALDO Methylprednisolone Sodium Succinate (Methylprednisolone Sod Succ 125 Mg/2 Ml Vial) 60 mg IVPUSH DAILY [facility] Stop: 03/11/22 09:01 Last Admin: 03/03/22 08:58 Dose: 60 mg Documented By: CIARA-SOFFA Morphine Sulfate (Morphine Sulfate 2 Mg/Ml Cartridge) 2 mg IVPUSH Q2H PRN; Protocol PRN Reason: Pain, Severe (Pain Scale 7-10) Pharmacy Consult (Consult Rx Perform Med Rec) 1 each MISCELLANE ONCE PRN PRN Reason: Consult order Sodium Chloride (0.9 % Sodium Chloride Flush 3 Ml Syringe) 3 ml IVFLUSH QSHIFT [facility] Last Admin: 03/03/22 07:37 Dose: Not Given Documented By: KAREN Non-Admin Reason: See Note Sodium Chloride (0.9 % Sodium Chloride Flush 10 Ml Syringe) 5 ml IVFLUSH TID [facility] Last Admin: 03/03/22 07:37 Dose: Not Given Documented By: CIARA-SOFMIRZA Non-Admin Reason: See Note Labs CBC & Chem 7: 03/03/22 08:20 03/03/22 08:20 Labs: Laboratory Results - last 24 hr 03/03/22 03/03/22 08:20 08:20 MCV 91.0 MCH 29.8 MCHC 32.8 RDW 19.9 H Plt Count 199 MPV 10.4 Absolute Nucleated RBC 0.000 Nucleated RBC % (auto) 0.0 Anion Gap 12 Estim Creat Clear Calc 52.8 Estimated GFR > 60 Random Glucose 166 H Calcium 9.0 Assessment and Plan (1) Epileptic encephalopathy: Status: Acute Plan 81-year-old male with 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 Review of chart demonstrates is similar to the last presentation of admission end of November. Hospital course complicated by seizures/encephalopathy/encephalitis encephalopathy secondary to encephalitis of unclear etiology - possible viral vs autoimmune vs paraneoplastic with underlying dementia- slowly improving CT head 02/15- chronic volume loss consistent , MRI 02/17?global volume loss with temporal lobe predominance, chronic lacunar infarct right vinayak, no acute changes. LP- mildly elevated protein otherwise negative, meningoencephalitis panel negative; CSF culture with no growth B12 and TSH normal EEG obtained 02/16 showing possible status epilepticus, repeat EEG 02/20 with similar findings - as patient still had purposeful movement, clinically was not in status epilepticus; patient started on keppra, repeat EEG 02/22 with mild slowing but no evidence of seizure s/p 7 days of acyclovir with no improvement in mental status Completed 3 days 1g IV solumedrol and then transitioned to steroid taper - plan for prolonged steroid taper per Neurology: 60 mg prednisone daily x2 weeks, 40 mg prednisone daily x2 weeks, 20 mg prednisone daily x2 weeks, 10 mg prednisone daily x2 weeks, 5 mg prednisone daily x2 weeks, 2.5 mg daily x2 weeks General surgery PEG placement today 02/28/22, tube feeding started - tolerating feeds better today, will change meds from IV to gtube outpatient follow-up with Neurology in 6-8 weeks Autoimmune encephalitis panel sent and pending at this time UTI Pseudomonas/VRE in urine culture seen by ID Enterococcus faecalis was present and lower concentrations and likely represents colonization and not pathogenic. no treatment indicated completed 14 days cefepime Right sided facial droop- resolved Stat head CT ordered, No acute stroke Hypertension controlled off meds Hypercalcemia resolved ALETHEA on CKD3 resolved Coronary artery disease with ischemic cardiomyopathy (chronic systolic chf) 2D echo 11/06 demonstrates an LVEF between 30 and 35% restart antiplatelet and statin when taking po DVT ppx- lovenox DNR/DNI reason for continued hospitalization:s/p PEG, starting tube feedings dispo - [facility] - likely Saturday; remove PICC when discharge confirmed HCP Shelby - called to update, no answer, left message 03/03 attending - dr. Kenyon Time Spent With Patient Time: Total time managing care of this patient today ____ minutes. Quality Stroke Does the patient have a stroke diagnosis?: No VTE Prior VTE?: No VTE Risk Level:: Medical - moderate - high VTE Device Contraindication: Treatment Not Indicated VTE Drug Contraindication: N/A - Med Ordered
[2022-03-03 14:45] LABS: Anion Gap 10 (12-20); Blood Urea Nitrogen 52 mg/dL (9-16); Calcium 9.1 mg/dL (8.4-10.2); Carbon Dioxide 22 mmol/L (22-29); Chloride 108 mmol/L (96-108); Creatinine Clr Calc Pharmacy 52.8; Estimated Glomerular Filt Rate > 60; Glucose Random 219 mg/dL (60-115); Potassium 5.3 mmol/L (3.3-5.1); Sodium 135 mmol/L (135-145)
[2022-03-03 15:55] VITALS: BP 115/56; PULSE 97; RESP 19; TEMP 36.7; O2SAT 97
[2022-03-03] MEDS: Sodium Zirconium Cyclosilicate 5 GM POWD.PACK G-TUBE (16:29)
[2022-03-03 20:00] VITALS: BP 100/56; PULSE 74; RESP 19; TEMP 36.7; O2SAT 97
[2022-03-03] MEDS: levETIRAcetam Oral Soln 500 MG/5 ML 1000 MG G-TUBE (22:25)
[2022-03-04] VITALS (7 sets, daily range): BP systolic 100–134; BP diastolic 49–72; PULSE 71–76; RESP 16–18; TEMP 36.2–36.6; O2SAT 97–99
[2022-03-04 06:49] LABS: Anion Gap 10 (12-20); Blood Urea Nitrogen 50 mg/dL (9-16); Calcium 9.1 mg/dL (8.4-10.2); Carbon Dioxide 24 mmol/L (22-29); Chloride 107 mmol/L (96-108); Creatinine Clr Calc Pharmacy 51.8; Estimated Glomerular Filt Rate > 60; Glucose Random 144 mg/dL (60-115); Potassium 4.4 mmol/L (3.3-5.1); Sodium 137 mmol/L (135-145)
--- NOTE | 2022-03-04 08:41 | P.PNIM_ITS ---
Subjective Subjective Date of Service: 03/04/22 Interval History: seen and examined this morning follow up for encephalopathy/encephalitis awake, alert; slow to respond, speaks quietly and one word at time. aware of full name, no other complaint Physical Exam Vital Signs: Vital Signs: Last Vital Signs Temp 97.9 F 03/04/22 08:00 Pulse 72 03/04/22 08:00 Resp 16 03/04/22 08:00 BP 116/51 L 03/04/22 08:00 Pulse Ox 98 03/04/22 08:00 O2 Del Method 03/04/22 08:00 O2 Flow Rate 2 02/28/22 16:00 BMI result Body Mass Index 20.9 Const: Other: able to state name General: alert and awake Nutritional Appearance: thin Resp: Other: Clear to auscultation bilaterally no rales rhonchi wheezes Effort & Inspection: normal respiratory effort, no respiratory distress and no use of accessory muscles Auscultation: clear to auscultation bilaterally Cardio: Other: No S4; positive S1-S2; no S3 murmurs rubs or gallops Rate: regular rate Heart sounds: S1 normal heart sound present and S2 normal heart sound present GI: Other: feeding tube present, no surrounding erythema Inspection: No distended Palpation (GI): Soft to palpation and nontender : Other: suprapubic catheter in place Skin: Other: scab on bridge of nose, no surrounding erythema or drainage Neuro: Other: awake, able to say some words, answer some basic questions; able to state name, doesn't know where he is; does not move etremities on command but will resist movement of all 4 extremities, wiggles toes; slight hand grasp on command - equal. face symmetrical Extrem: Other: PICC present left UE no leg edema General: Yes no pedal edema Objective Data Active Medications Artificial Tears (Artificial Tears 15 Ml Drops) 2 drop EYE-BOTH Q4H [facility] Last Admin: 03/04/22 02:48 Dose: Not Given Documented By: BARB Non-Admin Reason: Patient Refused Enoxaparin Sodium (Enoxaparin Sodium 40 Mg/0.4 Ml Syringe) 40 mg SUBCUT Q24H [facility] Last Admin: 03/03/22 08:59 Dose: 40 mg Documented By: KAREN Hydralazine HCl (Hydralazine Hcl 20 Mg/Ml Vial) 10 mg IVPUSH Q6H PRN; Protocol PRN Reason: Sbp > 180 Levetiracetam (Levetiracetam Oral Soln 500 Mg/5 Ml) 1,000 mg G-TUBE BID [facility] Last Admin: 03/03/22 22:25 Dose: 1,000 mg Documented By: BARB Morphine Sulfate (Morphine Sulfate 2 Mg/Ml Cartridge) 2 mg IVPUSH Q2H PRN; Protocol PRN Reason: Pain, Severe (Pain Scale 7-10) Pharmacy Consult (Consult Rx Perform Med Rec) 1 each MISCELLANE ONCE PRN PRN Reason: Consult order Prednisone (Prednisone 20 Mg Tablet) 60 mg G-TUBE DAILY [facility] Stop: 03/11/22 13:38 Sodium Chloride (0.9 % Sodium Chloride Flush 3 Ml Syringe) 3 ml IVFLUSH QSHIFT [facility] Last Admin: 03/04/22 02:47 Dose: Not Given Documented By: BARB Non-Admin Reason: Patient Refused Sodium Chloride (0.9 % Sodium Chloride Flush 10 Ml Syringe) 5 ml IVFLUSH TID [facility] Last Admin: 03/03/22 07:37 Dose: Not Given Documented By: KAREN Non-Admin Reason: See Note Labs CBC & Chem 7: 03/03/22 08:20 03/04/22 05:47 Labs: Laboratory Results - last 24 hr 03/03/22 03/03/22 03/03/22 08:20 08:20 14:01 MCV 91.0 MCH 29.8 MCHC 32.8 RDW 19.9 H Plt Count 199 MPV 10.4 Absolute Nucleated RBC 0.000 Nucleated RBC % (auto) 0.0 Anion Gap 12 10 L Estim Creat Clear Calc 52.8 52.8 Estimated GFR > 60 > 60 Random Glucose 166 H 219 H Calcium 9.0 9.1 03/04/22 05:47 MCV MCH MCHC RDW Plt Count MPV Absolute Nucleated RBC Nucleated RBC % (auto) Anion Gap 10 L Estim Creat Clear Calc 51.8 Estimated GFR > 60 Random Glucose 144 H Calcium 9.1 Assessment and Plan (1) Non-convulsive status epilepticus: Status: Acute (2) Status epilepticus: Status: Acute (3) Encephalopathy: Status: Acute Plan 81-year-old male with 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 Review of chart demonstrates is similar to the last presentation of admission end of November. Now with persistent epileptic encephalopathy iwth steady improvements in responsiveness #epileptic encephalopathy- appears to be slowly resolving with increased res ponsiveness. More alert, eyes opened and looking around, following some commands, moaning -Hypercalcemia resolved -CT head-negative except brain volume loss which more likely goes to a dementia,MRI neg 02/17,? - -seems ok except mildly elevated protein, meningitis panel negative -B12 and TSH normal -eeg-possible status epilepticus, eeg repeated 2 days ago with similar findings, repeated 02/22 with mild slowing but no evidence of seizure -Continue IV keppra 1000mg BID. Addl one time dose 500mg given per neurology 02/22. DC'd acyclovir -1g Solumedrol for steroid challenge per neuro with minimal improvement in responsivenss. Pt now with mildly increased tone, slight hand squeeze on command, voluntary extremity movements.Discussed with neuro, possible lag in recovery from epilectic encephalopathy which has been treated. Observe and continue tx as above for addl 2 days. Repeat 1g solumedrol daily x2 days given improvement in responsiveness -moniter neurochecks ,tele -Nutrition via TPN.?Nutrition following -Central line d/c'd. PICC line placed -Appreciate neuro input #Right sided facial droop- resolved -initially noted 03/03 by nursing and observed on exam -Stat head CT No acute stroke -?Lyle's paralysis #UTI -Pseudomonas/VRE in urine cultures; urine VRE; Pseudomonas in blood -/p suprapubic cather change last week due to leaking -ALETHEA resolved -follow renals/divalents iD saw the patient-recomended cefepime for 14 days (D11) (was initially also on ampicillin- dc/d) iD Followup #bacteremia secondary to UTI -Initial blood cultures showing pseudomas/enterococcus -Continue abx as above -Repeat cultures negative ?Hypertension- reasonably controlled -hold antihypertensives? add back when appropriate Coronary artery disease -2D echo 11/06 demonstrates an LVEF between 30 and 35% -cautious fluids hold? dual antiplatelet agents due ti can not take po. above is d/w neuro and iCU in detail-continue current management. DVT proph- heparin DNR Dispo- given pt presentation and lack of improvement following treatment for epileptic encephalopathy with anti-epileptics as well as steroid challenge, should consider hospice if no improvements in responsiveness after another 2 days after discussion with neuro. Given improvement in responsiveness, continue with streroid challenge and reassess prognosis/dispo tomorrow inpatient need : epileptic encephalopathy-need IV antiepileptics, IV steroid challenge as well as cefepime, monitor neuro checks and telemetry. Need Neurology and Infectious Disease follow-up. Time Spent With Patient Time: Total time managing care of this patient today ____ minutes. Quality Stroke Does the patient have a stroke diagnosis?: No VTE Prior VTE?: No VTE Risk Level:: Medical - moderate - high VTE Device Contraindication: Treatment Not Indicated VTE Drug Contraindication: N/A - Med Ordered
[2022-03-04] MEDS: levETIRAcetam Oral Soln 500 MG/5 ML 1000 MG G-TUBE ×2 (09:44→21:16)
[2022-03-04] MEDS: predniSONE 20 MG TABLET 60 MG G-TUBE (09:44)
[2022-03-04] MEDS: 0.9 % Sodium Chloride Flush 3 ML SYRINGE IVFLUSH ×2 (09:44→15:12)
[2022-03-04] MEDS: Enoxaparin Sodium 40 MG/0.4 ML SYRINGE SUBCUT (09:45)
[2022-03-04] MEDS: Artificial Tears 15 ML DROPS 2 DROP EYE-BOTH ×2 (15:15→21:16)
[2022-03-04] MEDS: 0.9 % Sodium Chloride Flush 10 ML SYRINGE 5 ML IVFLUSH (21:18)
[2022-03-05] MEDS: Artificial Tears 15 ML DROPS 2 DROP EYE-BOTH ×5 (01:30→23:47)
[2022-03-05] MEDS: 0.9 % Sodium Chloride Flush 3 ML SYRINGE IVFLUSH ×2 (01:30→09:15)
[2022-03-05 04:00] VITALS: BP 123/67; PULSE 71; RESP 18; TEMP 36.3; O2SAT 97
[2022-03-05 05:53] VITALS: BMI 20.6
[2022-03-05 08:00] VITALS: BP 102/58; PULSE 72; RESP 16; TEMP 36.6; O2SAT 98
--- NOTE | 2022-03-05 08:52 | P.PNIM_ITS ---
Subjective Subjective Date of Service: 03/05/22 Interval History: seen and examined this morning follow up for encephalopathy/encephalitis awake, alert; slow to respond, speaks quietly and one word at time. aware of full name, no other complaint Physical Exam Vital Signs: Vital Signs: Last Vital Signs Temp 97.8 F 03/05/22 08:00 Pulse 72 03/05/22 08:00 Resp 16 03/05/22 08:00 BP 102/58 L 03/05/22 08:00 Pulse Ox 98 03/05/22 08:00 O2 Del Method 03/05/22 08:00 O2 Flow Rate 2 02/28/22 16:00 BMI result Body Mass Index 20.6 Const: Other: able to state name General: alert and awake Nutritional Appearance: thin Resp: Other: Clear to auscultation bilaterally no rales rhonchi wheezes Effort & Inspection: normal respiratory effort, no respiratory distress and no use of accessory muscles Auscultation: clear to auscultation bilaterally Cardio: Other: No S4; positive S1-S2; no S3 murmurs rubs or gallops Rate: regular rate Heart sounds: S1 normal heart sound present and S2 normal heart sound present GI: Other: feeding tube present, no surrounding erythema Inspection: No distended Palpation (GI): Soft to palpation and nontender : Other: suprapubic catheter in place Skin: Other: scab on bridge of nose, no surrounding erythema or drainage Neuro: Other: awake, able to say some words, answer some basic questions; able to state name, doesn't know where he is; does not move etremities on command but will resist movement of all 4 extremities, wiggles toes; slight hand grasp on command - equal. face symmetrical Extrem: Other: PICC present left UE no leg edema General: Yes no pedal edema Objective Data Active Medications Artificial Tears (Artificial Tears 15 Ml Drops) 2 drop EYE-BOTH Q4H [facility] Last Admin: 03/05/22 06:32 Dose: 2 drop Documented By: LEIDY Enoxaparin Sodium (Enoxaparin Sodium 40 Mg/0.4 Ml Syringe) 40 mg SUBCUT Q24H [facility] Last Admin: 03/04/22 09:45 Dose: 40 mg Documented By: ARNALDO Hydralazine HCl (Hydralazine Hcl 20 Mg/Ml Vial) 10 mg IVPUSH Q6H PRN; Protocol PRN Reason: Sbp > 180 Levetiracetam (Levetiracetam Oral Soln 500 Mg/5 Ml) 1,000 mg G-TUBE BID [facility] Last Admin: 03/04/22 21:16 Dose: 1,000 mg Documented By: VINH Morphine Sulfate (Morphine Sulfate 2 Mg/Ml Cartridge) 2 mg IVPUSH Q2H PRN; Protocol PRN Reason: Pain, Severe (Pain Scale 7-10) Pharmacy Consult (Consult Rx Perform Med Rec) 1 each MISCELLANE ONCE PRN PRN Reason: Consult order Prednisone (Prednisone 20 Mg Tablet) 60 mg G-TUBE DAILY [facility] Stop: 03/11/22 13:38 Last Admin: 03/04/22 09:44 Dose: 60 mg Documented By: ARNALDO Sodium Chloride (0.9 % Sodium Chloride Flush 3 Ml Syringe) 3 ml IVFLUSH QSHIFT [facility] Last Admin: 03/05/22 01:30 Dose: 3 ml Documented By: HARSHAD Sodium Chloride (0.9 % Sodium Chloride Flush 10 Ml Syringe) 5 ml IVFLUSH TID [facility] Last Admin: 03/04/22 21:18 Dose: 5 ml Documented By: VINH Labs CBC & Chem 7: 03/03/22 08:20 03/04/22 05:47 Assessment and Plan (1) Non-convulsive status epilepticus: Status: Acute (2) Epileptic encephalopathy: Status: Acute Plan 81-year-old male with 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 Review of chart demonstrates is similar to the last presentation of admission end of November. Now with persistent epileptic encephalopathy iwth steady improvements in responsiveness #epileptic encephalopathy- appears to be slowly resolving with increased responsiveness. More alert, eyes opened and looking around, following some commands, moaning -Hypercalcemia resolved -CT head-negative except brain volume loss which more likely goes to a dementia,MRI neg 02/17,? - -seems ok except mildly elevated protein, meningitis panel negative -B12 and TSH normal -eeg-possible status epilepticus, eeg repeated 2 days ago with similar findings, repeated 02/22 with mild slowing but no evidence of seizure -Continue IV keppra 1000mg BID. Addl one time dose 500mg given per neurology 02/22. DC'd acyclovir -1g Solumedrol for steroid challenge per neuro with minimal improvement in responsivenss. Pt now with mildly increased tone, slight hand squeeze on command, voluntary extremity movements.Discussed with neuro, possible lag in recovery from epilectic encephalopathy which has been treated. Observe and continue tx as above for addl 2 days. Repeat 1g solumedrol daily x2 days given improvement in responsiveness -moniter neurochecks ,tele -Appreciate neuro input #Right sided facial droop- resolved -initially noted 03/03 by nursing and observed on exam -Stat head CT No acute stroke -?Lyle's paralysis #UTI -Pseudomonas/VRE in urine cultures; urine VRE; Pseudomonas in blood -/p suprapubic cather change last week due to leaking -ALETHEA resolved -follow renals/divalents iD saw the patient-recomended cefepime for 14 days (D11) (was initially also on ampicillin- dc/d) iD Followup #bacteremia secondary to UTI -Initial blood cultures showing pseudomas/enterococcus -Continue abx as above -Repeat cultures negative ?Hypertension- reasonably controlled -hold antihypertensives? add back when appropriate Coronary artery disease -2D echo 11/06 demonstrates an LVEF between 30 and 35% -cautious fluids hold? dual antiplatelet agents due ti can not take po. above is d/w neuro and iCU in detail-continue current management. DVT proph- heparin DNR Dispo- given pt presentation and lack of improvement following treatment for epileptic encephalopathy with anti-epileptics as well as steroid challenge, should consider hospice if no improvements in responsiveness after another 2 days after discussion with neuro. Given improvement in responsiveness, continue with streroid challenge and reassess prognosis/dispo tomorrow inpatient need : epileptic encephalopathy-need IV antiepileptics, IV steroid challenge as well as cefepime, monitor neuro checks and telemetry. Need Neurology and Infectious Disease follow-up. Time Spent With Patient Time: Total time managing care of this patient today ____ minutes. Quality Stroke Does the patient have a stroke diagnosis?: No VTE Prior VTE?: No VTE Risk Level:: Medical - moderate - high VTE Device Contraindication: Treatment Not Indicated VTE Drug Contraindication: N/A - Med Ordered
[2022-03-05] MEDS: levETIRAcetam Oral Soln 500 MG/5 ML 1000 MG G-TUBE ×2 (09:15→20:07)
[2022-03-05] MEDS: Enoxaparin Sodium 40 MG/0.4 ML SYRINGE SUBCUT (09:16)
[2022-03-05] MEDS: 0.9 % Sodium Chloride Flush 10 ML SYRINGE 5 ML IVFLUSH (09:16)
[2022-03-05] MEDS: predniSONE 20 MG TABLET 60 MG G-TUBE (09:16)
[2022-03-05 12:00] VITALS: BP 118/61; PULSE 75; RESP 20; TEMP 36.7; O2SAT 95
--- NOTE | 2022-03-05 12:10 | MHC.CM.PN ---
Patient has been medically cleared for dc to SNF/STR today. Patient will dc to [facility] today at 2PM, via [facility]. Patient has Dementia; CM spoke with Friend/HCP/Shelby @ [phone] and addressed IMM with her (original to be mailed certified letter to her and a copy to be placed on the chart.
[2022-03-05 13:35] LABS: COVID-19 Test Negative (Negative); IDNOW Serial# 9DB6401D
--- NOTE | 2022-03-05 13:40 | P.DS_ITS ---
DS: Providers Provider Date of Service: 03/05/22 Date of admission: 02/07/22 18:22 Primary care physician: Obinna Moreau MD Consults: 02/08/22 09:15 Consult to Urology Routine Consulting Provider: Jordan Meeks Reason for consultation: leaking suprapubic tube Has provider been notified: Yes 02/12/22 09:55 Consult to Infectious Diseases Stat Consulting Provider: Lainey Fields Reason for consultation: recurrent psuedomans UTI Has provider been notified: Yes 02/14/22 07:34 Consult to Nephrology Routine Consulting Provider: Ramírez Headley Reason for consultation: alethea on ckd,[id number] midline Has provider been notified: No 02/14/22 13:09 Consult to Psychiatry Routine Consulting Provider: Psych Covering Reason for consultation: dementia with beahvioural disturbances Has provider been notified: No 02/15/22 10:49 Consult to Neurology Routine Consulting Provider: [facility] Reason for consultation: encephalopathy unclear etiology Has provider been notified: No 02/16/22 13:33 Consult to Critical Care Routine Consulting Provider: Romeo Lynn Reason for consultation: status epilepticus Has provider been notified: No 02/26/22 09:30 Consult to General Surgery Routine Consulting Provider: Mainor Caballero Reason for consultation: PEG tube DS: Diagnosis Discharge Diagnosis (1) Non-convulsive status epilepticus: Status: Resolved (2) Epileptic encephalopathy: Status: Acute DS: Summary Hospital Course Hospital Course: From H&P on the day of admission 81 year old assigned male at with a history of sepsis and chronic hernandez catheter presenting to the emergency department today with dizziness and weakness. Patient states that starting yesterday he was feeling more weak and dizziness with positional changes.? 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 He had a similar presentation approximately 1 and half months ago ; urine culture consistent with Pseudomonas and he was subsequently bacteremic with the same.? He was discharged to SNF on oral Levaquin.? He was discharged to home or said he was doing well until today when physical therapy came and his legs went out from underneath him.? She felt he was repeating his same presentation and called an ambulance to transport to the emergency room.? In the emergency room he did not have a white count however he had active urine sediment.? Based on past history is, cultures were obtained and he was started on cefepime Hospital course: Initially admitted for UTI/weakness on 02/07. He was started on Cefepime due to history of Pseudomonas. Urine culture grew Pseudomonas/VRE. Blood cultures also positive for Pseudomonas. He was seen in consultation by Infectious Diseases who felt he should be treated for 14 days with IV cefepime for Pseudomonas. [place] Enterococcus faecalis was present and lower concentrations and was likely colonized and not pathogenic. He completed 14 days of IV cefepime. ALETHEA on CKD3 - improved with volume repletion. Chronic suprapubic catheter was noted to be leaking. He was seen in consultation by Urology. Initially an antispasmodic was attempted but was ineffective. He started becoming confused and Initially this was thought to be secondary to dementia. He had intermittent episodes of agitation was started on Zyprexa as needed. Was seen in consultation by Psychiatry who agreed with the above. Head CT showed volume loss. B12 and TSH were obtained were normal. Hospital course was complicated by worsening encephalopathy. MRI was obtained and was unremarkable. LP was obtained and showed only mildly elevated protein, menigoencephalitis panel was negative.He was evaluated by Neurology and had an EEG showed possible status epilepticus, eeg repeated with similar findings. He was started on Keppra. he was making purposeful movments and therefore not thought to be in status epilepticus. EEG was repeated 02/22 with mild slowing but no evidence of seizure. He was treated with 7 day course of acyclovir but mental status did not significantly improve. He was started on pulse dose of steroids which he received for 3 days with some improvement in responsiveness. At this point appears to be slowly improving with increased responsiveness. More alert, eyes opened and looking around, following some commands, able to say name. Neurology recommends prolonged glucocorticoid steroid taper: 60 mg prednisone daily times 2 weeks, 40 mg prednisone daily x2 weeks, 20 mg prednisone daily x2 weeks, 10 mg prednisone daily x2 weeks, 5 mg prednisone daily x2 weeks, 2.5 mg daily x2 weeks. Working diagnosis is encephalitis of uncertain etiology, possibly viral versus autoimmune versus paraneoplastic. He Should follow up with Neurology in 8 weeks or so. He was unable to take p.o. and a PICC line was placed and he was started on PPN.General surgery PEG placement on 02/28/22 - he is currently tollerating tube feeds. Time Spent with Patient Time attestation: Total time managing care of this patient today ____ minutes. Discharge coordination time: Greater than 30 minutes Quality: Safe Use of Opioids Does Pt have an Active Cancer Diagnosis on the Problem List?: No Quality: Stroke Does the patient have a stroke diagnosis?: No Physical Exam Vital Signs: Vital Signs: Last Vital Signs Temp 98.0 F 03/05/22 12:00 Pulse 75 03/05/22 12:00 Resp 20 03/05/22 12:00 BP 118/61 03/05/22 12:00 Pulse Ox 95 03/05/22 12:00 O2 Del Method 03/05/22 12:00 O2 Flow Rate 2 02/28/22 16:00 BMI result Body Mass Index 20.6 Const: Other: able to state name General: alert and awake Nutritional Appearance: thin Resp: Other: Clear to auscultation bilaterally no rales rhonchi wheezes Effort & Inspection: normal respiratory effort, no respiratory distress and no use of accessory muscles Auscultation: clear to auscultation bilaterally Cardio: Other: No S4; positive S1-S2; no S3 murmurs rubs or gallops Rate: regular rate Heart sounds: S1 normal heart sound present and S2 normal heart sound present GI: Other: feeding tube present, no surrounding erythema Inspection: No distended Palpation (GI): Soft to palpation and nontender : Other: suprapubic catheter in place Skin: Other: scab on bridge of nose, no surrounding erythema or drainage Neuro: Other: awake, able to say some words, answer some basic questions; able to state name, doesn't know where he is; does not move etremities on command but will resist movement of all 4 extremities, wiggles toes; slight hand grasp on command - equal. face symmetrical Extrem: General: Yes no pedal edema DS: Data Data Completed and Pending Completed studies during hospitalization [Text1]: Procedures Labs on day of discharge: Laboratory Results - last 24 hr 03/05/22 12:22 COVID-19 (CRISTIAN) Negative COVID-19 Clin Com See Note Discharge Plan Discharge Anticipated Discharge Date/Time: 03/05/22 12:26 Patient Disposition: Xfer SNF Discharge Diagnosis: epileptic encephalopathy Referrals: [facility] [Outside] - 1 Week Obinna Moreau MD [Primary Care Provider] - 1 Week Discharge Medications: New polyvinyl alcohol [Artificial Tears (polyvin alc)] 1.4 % Drops 2 drp ophthalmic (eye) Q4H Qty: 1 0RF prednisone 20 mg Tablet 60 mg G-tube DAILY Qty: 90 0RF Rx Instructions: 60 mg prednisone daily times 2 weeks, 40 mg prednisone daily x2 weeks, 20 mg prednisone daily x2 weeks, 10 mg prednisone daily x2 weeks, 5 mg prednisone daily x2 weeks, 2.5 mg daily x2 weeks levetiracetam 500 mg/5 mL (5 mL) Solution 1,000 mg G-tube BID Qty: 60 0RF Continued finasteride 5 mg tablet 5 mg PO DAILY 90 Days Qty: 90 1RF Changed aspirin 81 mg Tablet,Delayed Release (Dr/Ec) 81 mg feeding tube DAILY Qty: 30 0RF rosuvastatin 10 mg tablet 10 mg feeding tube BEDTIME Qty: 30 0RF ticagrelor 90 mg Tablet 90 mg feeding tube BID Qty: 30 0RF Discontinued lisinopril 5 mg Tablet 5 mg PO DAILY terazosin 5 mg capsule 5 mg PO BEDTIME 90 Days Qty: 90 1RF Discharge Orders: Discharge Order (Routine); Ordered 03/05/22 Ordered By: Toni Garcia Diet: Advance to usual diet Activity on Discharge: As tolerated Stand Alone Forms: Patient Portal Discharge page Care Plan Goals: Full recovery from Epileptic encephalopathy Health Concerns: epileptic encephalopathy with profound confsion Plan of Treatment: 60 mg prednisone daily times 2 weeks, 40 mg prednisone daily x2 weeks, 20 mg prednisone daily x2 weeks, 10 mg prednisone daily x2 weeks, 5 mg prednisone daily x2 weeks, 2.5 mg daily x2 weeks PT'S GOAL JEVITY 1.0 AT 80ML/HR WITH 120ML Q 8 HRS TO PROVIDE 2035KCALS (29KCLAS/KG), 85G PROTEIN (1.2G/KG), 1963ML TOTAL FREE WATER FROM FORMULA AND FLUSHES RECOMMEND INCREASING FREE WATER FLUSHES 120 Q 6 HRS TO MEET MINIMUM FLUID NEEDS; 2083ML TOTAL WATER (30ML/KG) MONITOR TOLERANCE, RESIDUALS AND LYTES Assessment: as above Discharge Date/Time: 03/06/22 11:22
[2022-03-05 15:48] VITALS: BP 101/58; PULSE 69; RESP 16; TEMP 36.4; O2SAT 98
--- NOTE | 2022-03-05 17:20 | HO.REMOVAL ---
Removal of PICC/Midline Removal of PICC/Midline: Removal of PICC/Midline: 1. Date: [03/05/2022] 2. Reason removed: [No Longer Needed PICC Line] 3. Inserted length: [44CM Triple Lumen PICC] 4. Removed length: [44CM Triple Lumen PICC--INTACT] 5. A dressing was placed over the site upon removal. No edema or bleeding at the site.
[2022-03-05 19:25] VITALS: BP 120/55; PULSE 69; RESP 16; TEMP 36.3; O2SAT 98
[2022-03-05 23:08] VITALS: BP 132/61; PULSE 73; RESP 16; TEMP 36.2; O2SAT 99
[2022-03-06 04:00] VITALS: BP 115/55; PULSE 75; RESP 16; TEMP 36.2; O2SAT 98
[2022-03-06 05:34] VITALS: BMI 21.1
[2022-03-06] MEDS: Artificial Tears 15 ML DROPS 2 DROP EYE-BOTH (06:22)
[2022-03-06 07:33] VITALS: BP 103/59; PULSE 79; RESP 18; TEMP 36.1; O2SAT 98
[2022-03-06] MEDS: levETIRAcetam Oral Soln 500 MG/5 ML 1000 MG G-TUBE (08:38)
[2022-03-06] MEDS: Enoxaparin Sodium 40 MG/0.4 ML SYRINGE SUBCUT (08:38)
[2022-03-06] MEDS: predniSONE 20 MG TABLET 60 MG G-TUBE (08:39)
--- NOTE | 2022-03-06 10:41 | PC.NURSE ---
[facility]
--- NOTE | 2022-03-06 11:23 | MHC.CLN ---
F/U PT TOLERATING JEVITY 1.0 AT 80ML/HR WITH 120ML Q 6 HRS TO PROVIDE 2035KCALS (29KCLAS/KG), 85G PROTEIN (1.2G/KG), 2083ML TOTAL FREE WATER FROM FORMULA AND FLUSHES (30ML/KG) CONTINUE TO MONITOR TOLERANCE, RESIDUALS AND LYTES
== END 2022-03-06 11:22 | disposition skilled nursing facility (03) | DRG 699 ==
LOC: HO.ED 16:45 → HO.EDOVER 18:33 → HO.S3 18:53 → HO.IMC 02-16 14:33 → HO.ICU 02-17 16:52 → HO.IMC 02-19 22:48
PROVIDERS: Anesthesiology; Internal Medicine; Internal Medicine Hypertension Specialist; Internal Medicine Nephrology; Internal Medicine Pulmonary Disease; Physician Assistant; Physician Assistant Medical; Radiology Diagnostic Radiology; Surgery; Admitting Provider Hospitalist; Emergency Provider Student in an Organized Health Care Education/Training Program; PCP Internal Medicine; Visit Provider Internal Medicine
PROC: 009U3ZZ Drainage of Spinal Canal, Percutaneous Approach (ICD-10-PCS; CPT 62270; principal; 2022-02-19 11:30)
PROC: 0DH63UZ Insertion of Feeding Device into Stomach, Percutaneous Approach (ICD-10-PCS; CPT 43246; principal; 2022-02-28 12:40)
DX: T83.518A Infection and inflammatory reaction due to other urinary catheter, initial encounter (principal); F02.82 Dementia in other diseases classified elsewhere, unspecified severity, with psychotic disturbance; I13.0 Hypertensive heart and chronic kidney disease with heart failure and stage 1 through stage 4 chronic kidney disease, or unspecified chronic kidney disease; I50.22 Chronic systolic (congestive) heart failure; N13.8 Other obstructive and reflux uropathy; N17.9 Acute kidney failure, unspecified; N39.0 Urinary tract infection, site not specified; Z16.21 Resistance to vancomycin; R78.81 Bacteremia; G40.A11 Absence epileptic syndrome, intractable, with status epilepticus; E78.00 Pure hypercholesterolemia, unspecified; I25.2 Old myocardial infarction; I95.9 Hypotension, unspecified; I25.10 Atherosclerotic heart disease of native coronary artery without angina pectoris; N40.1 Benign prostatic hyperplasia with lower urinary tract symptoms; E86.1 Hypovolemia; B96.5 Pseudomonas (aeruginosa) (mallei) (pseudomallei) as the cause of diseases classified elsewhere; N32.89 Other specified disorders of bladder; E83.52 Hypercalcemia; R33.8 Other retention of urine; T83.038A Leakage of other urinary catheter, initial encounter; G30.9 Alzheimer's disease, unspecified; R29.810 Facial weakness; Z66 Do not resuscitate; I25.5 Ischemic cardiomyopathy; N18.30 Chronic kidney disease, stage 3 unspecified; Y73.8 Miscellaneous gastroenterology and urology devices associated with adverse incidents, not elsewhere classified; D63.1 Anemia in chronic kidney disease; Z20.822 Contact with and (suspected) exposure to COVID-19; Z87.440 Personal history of urinary (tract) infections; Z79.82 Long term (current) use of aspirin; Z79.899 Other long term (current) drug therapy
CPT/HCPCS: 0241U; 36410; 36415; 36573; 36600; 62328; 70450; 70553; 71045; 71046; 74018; 80048; 80053; 80076; 81001; 82040; 82140; 82306; 82330; 82607; 82803; 82945; 82947; 83519; 83605; 83735; 83970; 84100; 84157; 84443; 84478; 84484; 85025; 85027; 85610; 85730; 86850; 86900; 86901; 86923; 87015; 87040; 87070; 87086; 87088; 87186; 87205; 87483; 87635; 89051; 93005; 95816; 96360; 96361; 99285; A9585; C1751; C1894; J0133; J0290; J0610; J0690; J0692; J1642; J1650; J1953; J2060; J2370; J2930; J3475; P9016; P9047

== ENCOUNTER → 2022-05-23 08:45 | Outpatient (BNVA) | payer MEDICARE, MEDICAID, SELFPAY | PROVIDERS: PCP Internal Medicine; Visit Provider Urology | DX: Z43.5 Encounter for attention to cystostomy (principal); N31.9 Neuromuscular dysfunction of bladder, unspecified; N48.89 Other specified disorders of penis | CPT/HCPCS: 51705; 99212 ==

== ENCOUNTER 2022-10-10 11:03 | Outpatient (AMB) | payer MEDICARE, MEDICAID, SELFPAY ==
--- NOTE | 2022-10-10 11:05 | MHC.OFFVIS ---
Intake Vital Signs 10/10/22 11:14 Height 6 ft BMI Reason not done Patient refused/unable BP 105/56 L Blood Pressure Location Lt brachial Position Sitting Pulse 90 Comment unable to obtain weight pt in Wheelchair Intake Visit Reasons: Discuss G-tube removal Intake Note: This patient presents for an assessment to discuss G-tube removal. Patient c/o; G-tube not in use, discuss removal. 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 Required: No Accompanied by: Other Relationship Allergies No Known Allergies Allergy (Verified 10/10/22 11:13) Medication List - Last Reconciled 10/10/22 by Mainor Caballero MD ascorbic acid (vitamin C) 1,000 mg PO DAILY 90 days aspirin 81 mg feeding tube DAILY levetiracetam 1,000 mg (10 mL) G-tube BID methenamine hippurate 1 g PO daily 90 days polyvinyl alcohol 1.4% (Artificial Tears (polyvinyl alcohol)) 2 drps ophthalmic (eye) Q4H prednisone 60 mg (3 x 20 mg) G-tube DAILY rosuvastatin 10 mg feeding tube BEDTIME sulfamethoxazole-trimethoprim 800-160 mg (Bactrim DS) 1 tab orally on days of catheter change; ticagrelor 90 mg feeding tube BID HPI Discuss G-tube removal HPI Details 82-year-old male here to discuss PEG tube removal. He had undergone PEG tube removal last February, as an inpatient because of encephalopathy and dementia. He had been in rehab for 3 months after being discharged from the hospital. He has been home for the past 2-3 months He has good oral intake for the past 5 months and has not been using his PEG tube so his wants this removed. [facility] Medical History Accelerated essential hypertension Acute subendocardial MO of anterior wall Bladder spasm BPH w urinary obs/LUTS Cardiomyopathy Coronary artery disease Dementia with behavioral disturbance Dementia with psychosis Gastrostomy tube in place HTN (hypertension) Hypercholesterolemia Hyperlipidemia NSTEMI (non-ST elevated myocardial infarction) OA (osteoarthritis) Penile mass Pulmonary embolism Shortness of breath Urinary retention Surgical History History of surgery Family History Father No problems noted. Mother No problems noted. Social History Household Members: Significant Other Housing: [facility] Do you presently have visiting nurse or other home services: Yes Alcohol intake: never Patient Tobacco Use Status: Never used Tobacco e-Cigarette/Vaping Use: Never Used Second Hand Smoke Exposure: No Advance Directives Date on File: 09/21/21 service: No Current occupational status: unemployed and retired Review of Systems Const Denies chills and Denies fever(s) Card Denies chest pain, Denies dyspnea and Reports dyspnea on exertion Resp Denies cough, Denies dyspnea and Reports dyspnea on exertion GI Denies hematochezia and Denies change in bowel habits Denies hematuria and Denies difficulty urinating Musc Details: Has been on wheelchair mostly although able to stand and walk short distances Reports back pain, Reports atrophy and Reports muscle weakness Neuro Denies focal weakness and Denies convulsions Psych Denies depression and Denies mood swings Physical Exam Vital Signs: Last Vital Signs Pulse 90 10/10/22 11:14 BP 105/56 L 10/10/22 11:14 Const Other: On wheelchair, answers questions well General: comfortable Resp Effort & Inspection: normal respiratory effort Cardio Rate: regular rate GI Other: Peg tube in place the epigastric area Palpation (GI): Soft to palpation, not firm and nontender Assessment & Plan Assessment & Plan (1) Gastrostomy tube in place: Code(s): Z93.1 - Gastrostomy status Plan: He had a PEG tube placed last February, for encephalopathy and dementia. He has not been using this peg tube for the past 4 months. He has had good oral intake. According to the , this peg tube does get in the way so they want this removed. I was able to remove the PEG tube without difficulty. He tolerated procedure well. I applied dry dressings to the area. I explained to them that this may have some drainage for several weeks until this completely closes. I instructed him on good wound care. Coding Level of Care Code Est Pt Level 3 (97363) Diagnoses Gastrostomy tube in place Z93.1
[2022-10-10 11:14] VITALS: BP 105/56; PULSE 90
== END 2022-10-10 11:26 | disposition home or self-care (01) ==
PROVIDERS: PCP Internal Medicine; Visit Provider Surgery
DX: Z93.1 Gastrostomy status (principal)
CPT/HCPCS: 99213

== ENCOUNTER → 2022-10-10 11:03 | Outpatient (BNVA) | payer MEDICARE, MEDICAID, SELFPAY | PROVIDERS: PCP Internal Medicine; Visit Provider Surgery | DX: Z93.1 Gastrostomy status (principal) | CPT/HCPCS: 99212 ==

== ENCOUNTER 2023-02-19 15:20 | Outpatient (AMB) | payer MEDICARE, SELFPAY ==
--- NOTE | 2023-02-19 15:24 | A.OFFVIS_ITS ---
Intake Intake Visit Reasons: 6m follow up/discuss spt placement Intake Note: Patient is present for telephone for spt placement discussion Allergies No Known Allergies Allergy (Verified 10/10/22 11:13) Medication List - Last Reconciled 02/19/23 by Jordan Meeks MD ascorbic acid (vitamin C) 1,000 mg PO DAILY 90 days aspirin 81 mg feeding tube DAILY levetiracetam 1,000 mg (10 mL) G-tube BID methenamine hippurate 1 g PO daily 90 days polyvinyl alcohol 1.4% (Artificial Tears (polyvinyl alcohol)) 2 drps ophthalmic (eye) Q4H prednisone 60 mg (3 x 20 mg) G-tube DAILY rosuvastatin 10 mg feeding tube BEDTIME sulfamethoxazole-trimethoprim 800-160 mg (Bactrim DS) 1 tab orally on days of catheter change; ticagrelor 90 mg feeding tube BID HPI HPI Comments History of Present Illness Details Festus is a pleasant male. He is a patient Dr. Garcia. 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 Telemedicine Evaluation 15 min Consultation D[employer] Immanuel Video attempted Tarsi unclear as to whether SPT tube is being changed every 4-6 weeks Recommend continue to change with 18 with 20 Maldivian catheter May use daily ascetic acid irrigation Encourage fluids Peg tube in place Suprapubic tube Left side of penile corporal body and glans has scarred and retracted secondary to the lack of blood flow Continue methenamine vitamin-C to minimize chance of UTI To continue with suprapubic change every 4 weeks 6 month follow-up Nephrolithiasis with urosepsis Admit hospital 09/06 Distal left-sided stones with urosepsis - Stent placed Noted to have partial priapism Biopsy performed negative Imaging suggestive of thrombosis of draining penile veins Treated with anti thrombotic PFSH Medical History Accelerated essential hypertension Acute subendocardial LA of anterior wall Bladder spasm BPH w urinary obs/LUTS Cardiomyopathy Coronary artery disease Dementia with behavioral disturbance Dementia with psychosis Gastrostomy tube in place HTN (hypertension) Hypercholesterolemia Hyperlipidemia NSTEMI (non-ST elevated myocardial infarction) OA (osteoarthritis) Penile mass Pulmonary embolism Shortness of breath Urinary retention Surgical History History of surgery Family History Father No problems noted. Mother No problems noted. Social History Household Members: Significant Other Housing: Condominium Do you presently have visiting nurse or other home services: Yes Alcohol intake: never Comment: 1;1 SITTER Patient Tobacco Use Status: Never used Tobacco e-Cigarette/Vaping Use: Never Used Second Hand Smoke Exposure: No Advance Directives Date on File: 09/21/21 service: No Current occupational status: unemployed and retired Review of Systems Const All systems reviewed & are unremarkable except as noted in HPI and below Reports no additional complaints Resp Reports no additional complaints GI Reports no additional complaints Reports as per HPI Musc Reports no additional complaints Physical Exam Telemedicine evaluation Appropriate responses Regular breathing rate and rhythm HEENT Head: Yes normal to inspection Ears: hearing grossly normal bilaterally Eyes General: appearance normal, both eyes and all related structures Neck Neck: Yes normal visual inspection Chest Chest palpation & inspection: normal inspection of the chest Resp Effort & Inspection: normal respiratory effort and able to speak in complete sentences Assessment & Plan Assessment & Plan (1) Hypotonic neurogenic bladder: Code(s): N31.9 - Neuromuscular dysfunction of bladder, unspecified Plan Six month follow-up in office Medications: Refilled ascorbic acid (vitamin C) 1,000 mg PO DAILY 90 days 90 tabs 1RF N31.9 - Neuromuscular dysfunction of bladder, unspecified methenamine hippurate 1 g PO daily 90 days 90 tabs 1RF N31.9 - Neuromuscular dysfunction of bladder, unspecified Patient Instructions: Imaging studies, laboratory and physical exam results were discussed and reviewed in detail. No major barriers to patient understanding were identified. An opportunity to ask questions regarding the treatment plan was provided. All questions were answered. The patient expressed understanding and agreement with the above treatment plan. The patient is aware they should contact our office by phone for worsening of th eir current condition or the appearance of new urologic symptoms. Compliance is encouraged with any medications and followup testing that is ordered. It is a privilege to participate in the urologic care of your patient. If you have any questions or concerns regarding treatment for the above conditions, or other urologic issues, please do not hesitate to contact me. The office telephone contact is [phone]. This note is constructed using voice recognition software. While every effort has been made to ensure accuracy commissioner public works errors may have been included. Yours sincerely, Dr Jordan Meeks MD, MACRINA [facility] - Urology Providers of Expert, Compassionate Care for the Genitourinary System Telehealth Telehealth Location of provider rendering services: practice address Location of patient: address on file Patient Identification confirmed using: Name, : Yes Telehealth method: video Patient verbally consented to treatment: Yes Patient verbally consented to billing insurance company: Yes Patient informed of any privacy concerns related to visit: Yes Coding Level of Care Code Tele Est Pt Level 3 (48665) Diagnoses Hypotonic neurogenic bladder N31.9
== END 2023-02-19 15:57 | disposition home or self-care (01) ==
LOC: HO.HUSH 15:20
PROVIDERS: PCP Internal Medicine; Visit Provider Urology
DX: N31.9 Neuromuscular dysfunction of bladder, unspecified (principal)
CPT/HCPCS: 99213

== ENCOUNTER → 2023-02-19 15:20 | Outpatient (BNVA) | payer MEDICARE, SELFPAY | PROVIDERS: PCP Internal Medicine; Visit Provider Urology ==

== ENCOUNTER 2023-03-16 22:50 | Inpatient (IN) | payer MEDICARE, SELFPAY ==
--- NOTE | 2023-03-16 | ECG_ITS ---
Test Reason : AMS Blood Pressure : / mmHG Vent. Rate : 115 BPM Atrial Rate : 115 BPM P-R Int : 176 ms QRS Dur : 120 ms QT Int : 336 ms P-R-T Axes : 074 -54 102 degrees QTc Int : 464 ms Sinus tachycardia Left anterior fascicular block Minimal voltage criteria for LVH, may be normal variant ( Ar product ) ST & T wave abnormality, consider lateral ischemia Abnormal ECG When compared with ECG of 07-FEB-2022 14:35, No significant change was found Referred By: Generic ED Physician Electronically Signed By:BALDEV MORGAN
--- NOTE | ~2023-03-16 | XR_ITS ---
EXAMINATION: XR CHEST CLINICAL INFORMATION: Altered mental status. COMPARISON: Chest radiograph 02/18/2022. TECHNIQUE: AP view of the chest was obtained. FINDINGS: Unchanged cardiomediastinal silhouette. Diffuse interstitial prominence with more focal hazy and streaky airspace opacities in the right lower lobe. Small right pleural effusion. No pneumothorax. No acute osseous findings. XR/XR chest 1V IMPRESSION: Findings suspicious for an atypical infectious/inflammatory process with early infiltrates in the right lower lobe and with a small right pleural effusion. Recommend short-term follow-up chest radiograph after treatment to ensure resolution.
--- NOTE | ~2023-03-16 | US_ITS ---
EXAMINATION: US RETROPERITONEAL LIMITED (RENAL ONLY) CLINICAL INFORMATION: Acute kidney injury. Rule out obstruction.. COMPARISON: CT abdomen pelvis December 12, 2021 TECHNIQUE: Grayscale and color Doppler imaging was obtained of the kidneys. FINDINGS: RIGHT KIDNEY: 10.6 x 4.2 x 4.8 cm (SAG x AP x TRV). The kidney is normal in size, contour, and echogenicity. Renal cortical thickness is normal. No renal calculi or hydronephrosis. There is a 1.3 cm simple appearing lower pole cyst for which no follow-up imaging is usually warranted. LEFT KIDNEY: 10.8 x 6.6 x 6.1 cm (SAG x AP x TRV). The kidney is normal in size, contour, and echogenicity. Renal cortical thickness is normal. There is moderate right-sided hydroureteronephrosis. Several stones are noted within the left kidney and left ureter, the largest within the proximal left ureter measuring up to 2 cm. BLADDER: The bladder is decompressed around a suprapubic catheter and therefore not accurately evaluated. US/US renal BI IMPRESSION: Moderate left-sided hydroureteronephrosis. Several stones are noted within the left kidney and left ureter, the largest within the proximal left ureter measuring up to 2 cm. Findings to be called to the ordering clinician by a [place] [facility] Administrator.
[2023-03-16 23:01] VITALS: BP 150/88; PULSE 135; O2SAT 98
[2023-03-16 23:05] VITALS: BMI 27.8
[2023-03-16 23:21] VITALS: BP 96/35; PULSE 130; RESP 18; TEMP 40.5; O2SAT 93
--- NOTE | 2023-03-16 23:51 | ED_ITS ---
HPI - Altered Mental Status General Chief Complaint: Altered Mental Status Stated Complaint: SEPSIS ALERT Time Seen by Provider: 03/16/23 23:38 Source: patient Mode of arrival: ambulatory Limitations: no limitations History of Present Illness HPI narrative: 82-year-old male with a history of dementia, coronary disease, cardiomegaly, ND, high cholesterol, hypertension, pulmonary embolism, hyperlipidemia, G-tube, suprapubic catheter who was sent to the emergency department for weakness, confusion and altered mental status. According the paramedics, the patient lives with his but she cannot come to emergency department with him. Was reported that the patient had a suprapubic tube could placed at least 6 months ago and uncertain what it was last changed. Related Data Previous Rx's Medication Instructions Recorded aspirin 81 mg tablet,delayed 81 mg feeding tube DAILY #30 tabs 03/05/22 release levetiracetam 500 mg/5 mL (5 mL) 1,000 mg (10 mL) G-tube BID #60 mL 03/05/22 oral solution polyvinyl alcohol 1.4 % eye drops 2 drp ophthalmic (eye) Q4H #1 mL 03/05/22 (Artificial Tears (polyvinyl alcohol)) prednisone 20 mg tablet 60 mg (3 x 20 mg) G-tube DAILY #90 03/05/22 tabs rosuvastatin 10 mg tablet 10 mg feeding tube BEDTIME #30 tabs 03/05/22 ticagrelor 90 mg tablet 90 mg feeding tube BID #30 tabs 03/05/22 sulfamethoxazole 800 1 tab PO .COMPLEX #30 tabs 06/26/22 mg-trimethoprim 160 mg tablet (Bactrim DS) ascorbic acid (vitamin C) 1,000 mg 1,000 mg PO DAILY 90 days #90 tabs 02/19/23 tablet methenamine hippurate 1 gram tablet 1 g PO daily 90 days #90 tabs 02/21/23 Allergies Allergy/AdvReac Type Severity Reaction Status Date / Time No Known Allergies Allergy Verified 10/10/22 11:13 Review of Systems 2 Review of Systems: Yes Unobtainable due to mental status PMFSH Past Medical History Medical History Accelerated essential hypertension Acute subendocardial ND of anterior wall Bladder spasm BPH w urinary obs/LUTS Cardiomyopathy Coronary artery disease Dementia with behavioral disturbance Dementia with psychosis Gastrostomy tube in place HTN (hypertension) Hypercholesterolemia Hyperlipidemia NSTEMI (non-ST elevated myocardial infarction) OA (osteoarthritis) Penile mass Pulmonary embolism Shortness of breath Urinary retention Surgical History History of surgery Family History Family History Father No problems noted. Mother No problems noted. Social History Social History Household Members: Significant Other Housing: [facility] Do you presently have visiting nurse or other home services: Yes Alcohol intake: never Comment: 1;1 SITTER Patient Tobacco Use Status: Never used Tobacco e-Cigarette/Vaping Use: Never Used Second Hand Smoke Exposure: No Advance Directives Date on File: 09/21/21 service: No Current occupational status: unemployed and retired Physical Exam ED Vital Signs: Vital Signs - 24 hr 03/16/23 23:21 03/17/23 00:00 03/17/23 00:30 Temperature 104.9 F H Pulse Rate 130 H 107 H 112 H Respiratory Rate 18 18 20 Blood Pressure 96/35 L 107/51 L 127/57 L Pulse Oximetry 93 99 96 Oxygen Delivery Method Room Air Room Air Room Air 03/17/23 00:50 03/17/23 01:03 03/17/23 02:15 Temperature Pulse Rate 113 H 104 H 101 H Respiratory Rate 20 24 H 18 Blood Pressure 102/54 L 102/43 L 97/48 L Pulse Oximetry 98 98 Oxygen Delivery Method Room Air Room Air 03/17/23 02:47 Temperature 100.7 F H Pulse Rate 100 Respiratory Rate 23 H Blood Pressure 107/57 L Pulse Oximetry 98 Oxygen Delivery Method Room Air BMI result Body Mass Index 27.8 Vital signs revealed an elevated heart rate of 130 of an elevated temperature of a 104.9 degrees F Exam: General: Awake, oriented to person only, follows commands but does not answer questions Head: Normocephalic, atraumatic EENT: PERRL, Lids normal, sclera normal, conjunctiva normal, nose normal , ears normal, throat without erythema or exudates, very dry mucous membranes Neck: Supple, no adenopathy, no trachea midline or C-spine tenderness Lung: breath sounds symmetric, no wheezing, rales or rhonchi Chest: symmetric movement, nontender Heart: regular rate and rhythm, normal S1, S2 no murmurs or rubs Abdomen: soft, non-tender, nondistended, normal bowel sounds Back: no vertebral tenderness, no CVAT Extremities: no deformities, moves all extremities symmetrically Skin: Patient has a rash on the sides of his nose and chest, rashes erythematous in has small circular lesions with increased warmth he also have small circular lesions on his arms Neuro: Awake, oriented to person only, paucity of speech, does not answer questions, cranial nerves intact, moves all extremities symmetrically but appears weak Medications Administered Discontinued Medications Generic Name Dose Route Start Last Admin Trade Name Freq PRN Reason Stop Dose Admin Acetaminophen 975 mg 03/16/23 23:51 03/17/23 00:17 Acetaminophen 325 Mg Tablet PO 03/16/23 23:52 975 mg ONCE ONE Administration Sodium Chloride 1,000 mls @ 999 mls/hr 03/16/23 23:45 03/17/23 01:08 Ns IV 03/17/23 00:45 Infused .Q1H1M MIKKI Infusion Sodium Chloride 2,346 mls @ 2,346 mls/hr 03/16/23 23:49 03/17/23 01:17 Ns 30 ml/kg infuse over 1 hr (2346 ml) 03/17/23 00:48 Infused IV Infusion .Q1H STA Cefepime HCl 2 gm/ Sodium 50 mls @ 100 mls/hr 03/16/23 23:49 03/17/23 00:47 Chloride IV 03/17/23 00:18 Infused ONCE ONE Infusion Vancomycin HCl 2,000 mg in 520 mls @ 250 mls/hr 03/17/23 00:30 03/17/23 01:25 Vancomycin/Ns IV 03/17/23 02:34 250 mls/hr ONCE ONE Administration Medical Decision Making Medical Decision Making MDM Narrative: 82-year-old male with a history of dementia, coronary disease, cardiomegaly, ND, high cholesterol, hypertension, pulmonary embolism, hyperlipidemia, G-tube, suprapubic catheter who was sent to the emergency department for weakness, confusion and altered mental status. Vital signs revealed an elevated heart rate of 130 and a temperature of 104.9 degrees. Following evaluation was ordered:CBC, BMP, liver panel, lactic acid, urinalysis, blood cultures x2, chest x-ray Following treatment was ordered: Normal saline bolus 30 cc/kilogram, Tylenol 975 mg orally, cefepime 2 g IV and vancomycin 2000 mg IV 02:47 My interpretation patient's laboratory evaluation is as follows: Normal WBC 8700. Normocytic anemia H&H of 11.6 and 34.6-chronic. Elevated BUN of 46. Elevated creatinine 4.11 above baseline of 1.11. Elevated total bilirubin of 1.4 which which is mainly indirect bilirubin at 0.9 suggesting that this is not from liver organ failure. COVID-19, influenza and RSV were negative. Urinalysis is pending. Chest x-ray is concerning for possible right lower lobe pneumonia versus atypical pneumonia. Given the fact that the patient does have Pseudomonas in his urine in the past and that he may also have a skin infection the patient was treated with cefepime and vancomycin. I did discuss admission over tiger text with the covering hospitalist, Dr. Gates Differential Diagnosis Differential Diagnoses: The differential diagnosis associated with the presentation includes Differential diagnosis includes was not limited to urinary tract infection, pneumonia, cellulitis (MRSA, MSSA), Pseudomonas infection Admission/Observation Consideration of admission/observation: Escalation of care including admission/observation considered Lab Data MDM Lab Attestation statement: I reviewed the patient's lab results. 03/16/23 23:58 03/17/23 00:36 Labs: Lab Results 03/16/23 03/17/23 03/17/23 Range/Units 23:58 00:36 00:56 WBC 8.7 (4.8-10.8) X10*3/uL RBC 3.99 L D (4.60-5.80) X10*6/uL Hgb 11.6 L (14.0-18.0) g/dl Hct 34.6 L (42.0-52.0) % MCV 86.7 (80.0-98.0) fL MCH 29.1 (27.0-33.0) pg MCHC 33.5 (31.0-36.0) g/dl RDW 15.9 (11.0-16.0) % Plt Count 207 (160-400) X10*3/uL MPV 8.9 L (9.4-12.4) fL Immature Gran % (Auto) 0.9 H (0.0-0.4) % Neut % (Auto) 90.6 H (45-73) % Lymph % (Auto) 4.6 L (20-40) % [place] % (Auto) 3.2 (2-11) % Eos % (Auto) 0.1 (0-4) % Baso % (Auto) 0.6 (0-2) % Lymph # (Auto) 0.4 L (1.2-4.9) X10*3/uL [place] # (Auto) 0.3 (0.1-1.2) X10*3/uL Eos # (Auto) 0.0 (0.0-0.4) X10*3/uL Baso # (Auto) 0.1 (0.0-0.2) X10*3/uL Abs Immat Gran (auto) 0.08 H (0.00-0.03) X10*3/uL Absolute Neuts (auto) 7.9 (2.0-8.3) x10*3/uL Absolute Nucleated RBC 0.000 (0.0-0.012) X10*3/uL Nucleated RBC % (auto) 0.0 (0.0-0.2) /100WBC Smear Tech's Comments VERIFIED Hold Purple Top SEE NOTE Sodium 138 (135-145) mmol/L Potassium 3.8 (3.3-5.1) mmol/L Chloride 111 H (96-108) mmol/L Carbon Dioxide 18 L (22-29) mmol/L Anion Gap 13 (12-20) BUN 46 H (9-16) mg/dL Creatinine 4.11 H* (0.5-1.4) mg/dL Estim Creat Clear Calc 13.6 Estimated GFR 14 Random Glucose 97 (60-115) mg/dL Lactic Acid 2.4 H* (0.5-2.0) mmol/L Calcium 10.2 D (8.4-10.2) mg/dL Total Bilirubin 1.4 H (0.0-1.0) mg/dL Direct Bilirubin 0.5 (0.0-0.5) mg/dL AST 13 (5-37) U/L ALT 6 (0-40) U/L Alkaline Phosphatase 57 (39-117) U/L Total Protein 6.4 L (6.5-8.0) g/dL Albumin 2.9 L (3.5-5.0) g/dL Lipase 11 (8-78) U/L Influenza Type A (PCR) NEGATIVE (Negative) Influenza Type B (PCR) NEGATIVE (Negative) RSV RNA Qual (PCR) NEGATIVE (Negative) SARS-CoV-2 RNA (RT-PCR) NEGATIVE (Negative) Independent Interpretation I performed an independent interpretation of an: Plain X-Ray Interpretation: My interpretation of the patient's one-view chest x-ray is as follows: Right lower lobe infiltrate Radiology Impression Discussion of test interpretation with radiology: I have reviewed the radiologist's reading. Radiologist Impression: XR chest 1V IMPRESSION: Findings suspicious for an atypical infectious/inflammatory process with early infiltrates in the right lower lobe and with a small right pleural effusion. Recommend short-term follow-up chest radiograph after treatment to ensure resolution. Dictated By: Nohelia Reece Procedures Procedure Narrative Procedure Narrative: Suprapubic catheter replacement Patient has a suprapubic catheter in place it is unclear when it was last changed. The skin around the catheter was cleaned and prepped with Betadine x3 swabs. The balloon from the old catheter was deflated and the catheter was easily removed without any difficulty. I able to easily passed a 20 [place] catheter through the opening with good urinary return. Balloon was inflated with 10 cc of sterile water. Patient tolerated the procedure well. Urine specimen was sent from the new catheter insertion. Critical Care Time Critical Care Time Critical Care Time: Yes Total Critical Care Time: 45 Attestation: Critical Care: The patient was critically ill with a high probability of imminent or life threatening deterioration. I spent greater than 30 minutes of discontinuous time evaluating the patient,delivering critical care at the bedside, discussing and evaluating pertinent data with consultants. Critical care time does not include time spent performing separately billable procedures or teaching. Total time spent performing critical care was 45 minutes. Discharge Plan Discharge Clinical Impression: Fever Pneumonia Qualifiers: Laterality: right Lung location: lower lobe of lung Cellulitis Qualifiers: Site of cellulitis: face Qualified Code(s): L03.211 - Cellulitis of face Patient Disposition: Admitted As Inpatient
[2023-03-17] VITALS (15 sets, daily range): BP systolic 90–127; BP diastolic 36–57; PULSE 63–113; RESP 14–25; TEMP 37.1–38.2; O2SAT 93–99; BMI 28.9
[2023-03-17 00:06] LABS: Basophils Absolute Auto 0.1 X10*3/uL (0.0-0.2); Basophils Percent Auto 0.6 % (0-2); Eosinophils Percent Auto 0.1 % (0-4); Hematocrit 34.6 % (42.0-52.0); Hemoglobin 11.6 g/dl (14.0-18.0); Imm Gran Abs Auto 0.08 X10*3/uL (0.00-0.03); Imm Gran Pct Auto 0.9 % (0.0-0.4); Lymphocytes Absolute Auto 0.4 X10*3/uL (1.2-4.9); Lymphocytes Percent Auto 4.6 % (20-40); MANUAL DIFF FLAG SCAN; Mean Corpuscular HGB Conc 33.5 g/dl (31.0-36.0); Mean Corpuscular Hemoglobin 29.1 pg (27.0-33.0); Mean Corpuscular Volume 86.7 fL (80.0-98.0); Mean Platelet Volume 8.9 fL (9.4-12.4); Monocytes Absolute Auto 0.3 X10*3/uL (0.1-1.2); Monocytes Percent Auto 3.2 % (2-11); Neutrophils Absolute Auto 7.9 x10*3/uL (2.0-8.3); Neutrophils Percent Auto 90.6 % (45-73); Platelet Count 207 X10*3/uL (160-400); Red Blood Count 3.99 X10*6/uL (4.60-5.80); Red Cell Distribution Width 15.9 % (11.0-16.0); SCAN SMEAR FLAG 1; White Blood Count 8.7 X10*3/uL (4.8-10.8)
[2023-03-17] MEDS: 0.9 % Sodium Chloride 1,000 ML 999 ML IV (00:07)
[2023-03-17] MEDS: cefEPime HCl 2 GM in 0.9 % Sodium Chloride 50 ML IV (00:17)
[2023-03-17] MEDS: Acetaminophen 325 MG TABLET 975 MG PO (00:17)
[2023-03-17 00:27] LABS: Lactic Acid 2.4 mmol/L (0.5-2.0)
[2023-03-17 00:31] LABS: SLIDE REVIEW VERIFIED
[2023-03-17 01:03] LABS: Alanine Aminotransferase 6 U/L (0-40); Albumin Level 2.9 g/dL (3.5-5.0); Alkaline Phosphatase 57 U/L (39-117); Anion Gap 13 (12-20); Aspartate Amino Transferase 13 U/L (5-37); Bilirubin Direct 0.5 mg/dL (0.0-0.5); Bilirubin Total 1.4 mg/dL (0.0-1.0); Blood Urea Nitrogen 46 mg/dL (9-16); Calcium 10.2 mg/dL (8.4-10.2); Carbon Dioxide 18 mmol/L (22-29); Chloride 111 mmol/L (96-108); Creatinine Clr Calc Pharmacy 13.6; Estimated Glomerular Filt Rate 14; Glucose Random 97 mg/dL (60-115); Lipase 11 U/L (8-78); Potassium 3.8 mmol/L (3.3-5.1); Sodium 138 mmol/L (135-145); Total Protein 6.4 g/dL (6.5-8.0)
[2023-03-17 01:42] LABS: Influenza A PCR NEGATIVE (Negative); Influenza B PCR NEGATIVE (Negative); Resp Syncy Virus RNA Qual PCR NEGATIVE (Negative); SARS COV2 PCR INHOUSE NEGATIVE (Negative)
[2023-03-17 02:03] LABS: Reflex Lactate? Lactic Acid Added
[2023-03-17 03:56] LABS: Appearance Urine Turbid; Color Urine Yellow; Glucose Urine UA Negative (Negative); Leukocyte Esterase Urine Large (3+) (Negative); Nitrite Urine Negative (Negative); UMIC TRIGGER UACC YES; Urine Blood Large (3+) (Negative); Urine Ketones Trace mg/dL (Negative); Urine Protein 300 (3+) mg/dL (Neg-Trace)
[2023-03-17 04:06] LABS: ~Lactic Acid-LAB USE ONLY 1.4 mmol/L (0.5-2.0)
[2023-03-17 04:07] LABS: Bacteria Urine 4+ (None Seen); Calcium Oxalate Crystals Urine Present; Other Crystals Urine Present; RBC Urine >20 /HPF (0-2); UACC Culture Trigger YES; WBC Urine >50 /HPF (0-5)
[2023-03-17] MEDS: Dextrose 5 % and 0.9 % NaCl 1,000 ML 125 ML IVCONT (05:29)
[2023-03-17] MEDS: Heparin Sodium,Porcine 5,000 UNIT/ML VIAL 5000 UNIT SUBCUT ×3 (05:38→22:19)
--- NOTE | 2023-03-17 06:54 | P.HPHOSP_ITS ---
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 He lives at home with his elderly and gets around in a wheelchair. At baseline, he is able to stand on his own and pivot but was not able to do that today. He was also noted to be oriented only to self which is not his usual baseline. He has had the suprapubic tube (SPT) for at least 6 months ago and it is uncertain what it was last changed (last Urology note was on 02/19/2022). On arrival to the emergency room, he was noted to be febrile with a temperature of 104.9 F and tachycardic at 130 bpm. Lab work revealed acute renal failure with a creatinine of 4.11 mg/dl and an elevated serum lactic acid at 2.4 mmol/L. He received IV fluids with improvement in his lactic acid (now at 1.4 mmol/L) and urinalysis revealed 3+ large blood, 3+ leukocyte esterase, > 50 WBC/HPF and 4+ urine bacteria. Of note, he has in the past been diagnosed with Pseudomonas aeruginosa UTI and VRE. An assessment of severe sepsis secondary to UTI was made and he was started on Cefepime and admission requested. When I saw him, he was still confused and appeared to be hallucinating thinking that the tubings were snakes. Review of Systems 2 Review of Systems: Yes Unobtainable due to mental status [facility] History Gastrostomy tube in place Dementia with behavioral disturbance Dementia with psychosis Bladder spasm Coronary artery disease Cardiomyopathy Acute subendocardial [place] of anterior wall BPH w urinary obs/LUTS Urinary retention Shortness of breath OA (osteoarthritis) Hypercholesterolemia HTN (hypertension) Penile mass NSTEMI (non-ST elevated myocardial infarction) Pulmonary embolism Hyperlipidemia Accelerated essential hypertension Family History Father No problems noted. Mother No problems noted. Surgical History History of surgery Social History Household Members: Significant Other Housing: [facility] Do you presently have visiting nurse or other home services: Yes Alcohol intake: never Comment: 1;1 SITTER Patient Tobacco Use Status: Never used Tobacco e-Cigarette/Vaping Use: Never Used Second Hand Smoke Exposure: No Advance Directives: Yes Advance Directives on File: Yes Advance Directives Date on File: 09/21/21 service: No Current occupational status: unemployed and retired Meds Allergies Allergy/AdvReac Type Severity Reaction Status Date / Time No Known Allergies Allergy Verified 10/10/22 11:13 Home Medications Medication Instructions Recorded Confirmed Last Taken Type aspirin 81 mg tablet,delayed 81 mg PO DAILY 03/17/23 03/17/23 Unknown History release Physical Exam 2 Vital Signs and Narrative: Vital Signs: Last Vital Signs Temp 100.7 F H 03/17/23 02:47 Pulse 91 03/17/23 05:30 Resp 23 H 03/17/23 05:30 BP 110/38 L 03/17/23 05:30 Pulse Ox 98 03/17/23 04:30 O2 Del Method Room Air 03/17/23 04:30 BMI result Body Mass Index 27.8 General: Well nourished. Awake, alert and oriented only to self. No apparent distress Eyes: No pallor or jaundice. PERRLA, EOMI HENT: Moist oral mucus membranes. No oropharyngeal lesions. Neck: Supple. No cervical adenopathy. No JVD Cardiovascular: Tachycardic but regular. Normal heart sounds. No JVD. No peripheral edema. Respiratory: Normal respiratory effort with no accessory muscle use. CTAB. Gastrointestinal: Abdomen is soft, non-tender, non-distended. NABS. No hepatosplenomegaly. Noted with SPT Extremities: No edema. No calf tenderness. Good peripheral pulses Skin: Warm/Dry. No rashes. No mottling. Capillary refill is < 2 seconds Neurological: AAOx4. Intact speech. Poor cognition. Normal gait & balance. No motor deficits. Hematologic: No bleeding. No ecchymosis. No swollen or tender lymph nodes. Psychiatric: Cooperative. Pleasantly confused. Hallucinating thinking the tubings are snakes. . Results Labs 03/16/23 23:58 03/17/23 00:36 Labs: Laboratory Results - last 24 hr 03/16/23 03/17/23 03/17/23 23:58 00:36 00:56 MCV 86.7 MCH 29.1 MCHC 33.5 RDW 15.9 Plt Count 207 MPV 8.9 L Immature Gran % (Auto) 0.9 H Neut % (Auto) 90.6 H Lymph % (Auto) 4.6 L [place] % (Auto) 3.2 Eos % (Auto) 0.1 Baso % (Auto) 0.6 Lymph # (Auto) 0.4 L [place] # (Auto) 0.3 Eos # (Auto) 0.0 Baso # (Auto) 0.1 Abs Immat Gran (auto) 0.08 H Absolute Neuts (auto) 7.9 Absolute Nucleated RBC 0.000 Nucleated RBC % (auto) 0.0 Smear Tech's Comments VERIFIED Hold Purple Top SEE NOTE Anion Gap 13 Estim Creat Clear Calc 13.6 Estimated GFR 14 Random Glucose 97 Lactic Acid 2.4 H* Lactic Acid F/U @ 2Hr Calcium 10.2 D Total Bilirubin 1.4 H Direct Bilirubin 0.5 AST 13 ALT 6 Alkaline Phosphatase 57 Total Protein 6.4 L Albumin 2.9 L Lipase 11 Urine Color Urine Appearance Urine pH Ur Specific [place] Urine Protein Urine Glucose (UA) Urine Ketones Urine Blood Urine Nitrite Ur Leukocyte Esterase Urine RBC Urine WBC Ur Squamous Epith Cells Calcium Oxalate Crystal Other Crystals Urine Bacteria Hyaline Casts Influenza Type A (PCR) NEGATIVE Influenza Type B (PCR) NEGATIVE RSV RNA Qual (PCR) NEGATIVE SARS-CoV-2 RNA (RT-PCR) NEGATIVE 03/17/23 03:50 MCV MCH MCHC RDW Plt Count MPV Immature Gran % (Auto) Neut % (Auto) Lymph % (Auto) [place] % (Auto) Eos % (Auto) Baso % (Auto) Lymph # (Auto) [place] # (Auto) Eos # (Auto) Baso # (Auto) Abs Immat Gran (auto) Absolute Neuts (auto) Absolute Nucleated RBC Nucleated RBC % (auto) Smear Tech's Comments Hold Purple Top Anion Gap Estim Creat Clear Calc Estimated GFR Random Glucose Lactic Acid Lactic Acid F/U @ 2Hr 1.4 Calcium Total Bilirubin Direct Bilirubin AST ALT Alkaline Phosphatase Total Protein Albumin Lipase Urine Color Yellow Urine Appearance Turbid Urine pH 8.0 Ur Specific [place] 1.020 Urine Protein 300 (3+) H Urine Glucose (UA) Negative Urine Ketones Trace Urine Blood Large (3+) H Urine Nitrite Negative Ur Leukocyte Esterase Large (3+) H Urine RBC >20 H Urine WBC >50 H Ur Squamous Epith Cells 3-5 Calcium Oxalate Crystal Present Other Crystals Present Urine Bacteria 4+ Hyaline Casts 11-20 Influenza Type A (PCR) Influenza Type B (PCR) RSV RNA Qual (PCR) SARS-CoV-2 RNA (RT-PCR) ECG ECG interpretation date: 03/17/23 ECG interpretation time: 07:22 Prior ECG tracings: available for review Interpretation: Sinus tachycardia at 115 bpm. LAFB. Imaging Radiologist's Impressions: Impressions Chest X-Ray 03/17/23 00:04 Findings suspicious for an atypical infectious/inflammatory process with early infiltrates in the right lower lobe and with a small right pleural effusion. Recommend short-term follow-up chest radiograph after treatment to ensure resolution. Assessment and Plan (1) Severe sepsis: Status: Acute (2) Sepsis secondary to UTI: Status: Resolved Plan 82 year old white male with past medical history of dementia, cardiomyopathy, coronary artery disease s/p NSTEMI, hyperlipidemia, hypertension, pulmonary embolism, recurrent UTI's with Pseudomonas/VRE, non-malignant penile mass s/p SPT placement, s/p G-tube placement here with: 1. Severe sepsis - due to UTI - admit and continue with Cefepime - consider VRE coverage too - consider ID consult 2. UTI - treat as above 3. Acute renal failure - creatinine up to 4.11 from . - differential diagnosis to include pre-renal azotemia - will recheck after hydration 4. Encephalopathy - likely due to UTI/sepsis - treat underlying condition (UTI) DVT: SC heparin CODE STATUS: DNR/DNI from last admission Admission for at least 2 midnights for management of severe sepsis and ARF. Total time managing care of this patient today: 75 minutes. Quality Stroke Does the patient have a stroke diagnosis?: No VTE Prior VTE?: No VTE Risk Level:: Medical - moderate - high VTE Device Contraindication: N/A - Device Ordered VTE Drug Contraindication: N/A - Med Ordered
--- NOTE | 2023-03-17 08:16 | PC.NURSE ---
Fluids discontinued per order, 333mls infused prior to stoping fluids
[2023-03-17] MEDS: 0.9 % Sodium Chloride Flush 3 ML SYRINGE IVFLUSH (08:17)
--- NOTE | 2023-03-17 09:10 | PC.NURSE ---
Patient confused and restless attempting to remove lines and wires, camera in place. Asked patient if he would like to eat breakfast, patient stating no he wants to beers. Patient shaky continually asking for beers. Provider notified and came to bedside to assess.
--- NOTE | 2023-03-17 09:44 | PHA.MEDREC ---
Pharmacy Consult ? Medication Reconciliation Pharmacy has completed the medication reconciliation. Pt has history of Dementia. Called Patient's contact ([phone]), but phone number out of service. Called [facility] to confirm meds. Per the on-call RPh at [facility], the patient only has recent Rx for Vitamin C 1000 mg daily, ASA 81 mg daily, and methenamine 1 g daily. They also state that meds such as Brillinta and finasteride were last filled almost a year ago. They have no record of Keppra at their pharmacy for this patient.
[2023-03-17 09:47] LABS: Anion Gap 14 (12-20); Blood Urea Nitrogen 50 mg/dL (9-16); Carbon Dioxide 18 mmol/L (22-29); Chloride 112 mmol/L (96-108); Glucose Random 115 mg/dL (60-115); Potassium 4.5 mmol/L (3.3-5.1); Sodium 139 mmol/L (135-145)
[2023-03-17 09:50] LABS: Creatinine Clr Calc Pharmacy 12.2; Estimated Glomerular Filt Rate 12
--- NOTE | 2023-03-17 09:50 | PM.EVENT ---
Event Note Date of Service: 03/19/23 Event Note: 82 year old white male with a history of dementia, cardiomyopathy, coronary artery disease s/p NSTEMI, hyperlipidemia, hypertension, pulmonary embolism, recurrent UTI's with Pseudomonas/VRE, non-malignant penile mass s/p SPT placement, s/p G-tube placement who was sent to the emergency department for evaluation of increasing weakness and confusion. Now with ALETHEA DDX: Hypoperfusion from low BP /shock/ Sepsis Possible ischemic ATN Check iPTH and SPEP in view of hypercalcemia Keep I > O and SBP > 100 Continue to avoid nephrotoxins Concur with other management Full consult to follow Thanks Time Spent With Patient Time: Total time managing care of this patient today ____ minutes.
--- NOTE | 2023-03-17 10:22 | P.EN_ITS ---
Event Note Date of Service: 03/17/23 Event Note: Patient admitted overnight with sepsis due to UTI. 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, h/o G-tube placement (removed in september) who was brought to the ED from home due to confusion and fever found to have UTI and ALETHEA Severe sepsis due to UTI related to suprapubic catheter and GNR bacteremia met criteria with fever, tachycardia, tachypnea; lactic acidosis resolved with IVF h/o pseudomonas on previous admission ID felt VRE represented colonization and was not pathogenic continue with Cefepime for now follow results of urine culture blood cultures growing 1/2 GNR ID consult pending ALETHEA creatinine continues to trend up to 4.56 from 1.11 ?due to hypperfusion from sepsis vs possible ischemic ATN has suprabupic catheter in place which seems to be functioning will obtain renal US to rule out obstruction nephrology following follow BMP Acute toxic metabolic Encephalopathy multifactorial due to UTI/sepsis/ALETHEA treat underlying causes possible pneumonia cxr showing ?early infiltrate in RLL no respiratory symptoms on abx for above covid, flu, RSV negative follow respiratory status closely metabolic acidosis due to ALETHEA follo renal function dvt ppx - heparin multiple phone numbers in system are not in working order, have been unable to reach significant other/HCP. home medications unable to be verified. 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 has only been filling aspirin, methanam ine and vitamin C Time Spent With Patient Time: Total time managing care of this patient today ____ minutes.
[2023-03-17] MEDS: Lactated Ringers 1,000 ML 100 ML IVCONT (11:38)
--- NOTE | 2023-03-17 12:04 | PC.NURSE ---
assumed care of pt at 1100, resting quietly, oriented to person only, hypotensive, tachy, other vss, IVs wrapped w camera at bedside d/t pt pulling at lines and suprapubic catheter. LR running per MAY. pt pending bed assignment.
--- NOTE | 2023-03-17 12:47 | PC.NURSE ---
pt became hypotensive, provider notified - flds increased to 125ml/hr per order. receiving RN notified of vitals change.
--- NOTE | 2023-03-17 14:13 | MHC.CM.PN ---
Addendum entered by Jacinta Thomason 03/18/23 15:47: CM ATTEMPTED TO CONTACT PTS HCP, JENNIFER [phone] NUMBER ALSO OUT OF SERVICE Original Note: Patient confused at this time, CM unable to get history. Per chart review patient lives w/ his who was unable to come to hospital. Patient has suprapubic catheter and g-tube. Has a wheelchair at home and is able to stand/pivot at baseline. HCP/contact on file is friend Jennifer. However, phone number in chart is out of service. Phone number listed on proxy [phone] does not have a voicemail - called x2 but unable to leave message. No contact information for . CM will continue contact attempts and meet with patient when mental status is improved.
--- NOTE | 2023-03-17 14:15 | PC.NURSE ---
Suprapubic cath noted to be oozing green around insertion site. Area cleansed with Provon wipes. Pt c/o pain around insertion site and upon palpation of bladder.
--- NOTE | 2023-03-17 19:13 | PC.NURSE ---
Suprapubic cath collection bag emptied at 1910. Large sediment noted and dark yellow in color.
[2023-03-17] MEDS: Lactated Ringers 1,000 ML 125 ML IVCONT (20:19)
[2023-03-17] MEDS: Docusate Sodium 100 MG CAPSULE PO (22:19)
--- NOTE | 2023-03-17 23:46 | P.CNID_ITS ---
History of Present Illness Data of Consult Service Date: 03/17/23 Requesting physician: Marla Velazquez Primary Care Provider: Unknown Physician HPI Reason for consult: hypotension and fever He presents with weakness and hypotension and had temperature 100.5. He has suprapubic cathetre. He was started on Cefepime. Review of Systems 2 Review of Systems: Yes Unobtainable due to mental condition PMFSH Past Medical History Medical History Gastrostomy tube in place Dementia with behavioral disturbance Dementia with psychosis Bladder spasm Coronary artery disease Cardiomyopathy Acute subendocardial [place] of anterior wall BPH w urinary obs/LUTS Urinary retention Shortness of breath OA (osteoarthritis) Hypercholesterolemia HTN (hypertension) Penile mass NSTEMI (non-ST elevated myocardial infarction) Pulmonary embolism Hyperlipidemia Accelerated essential hypertension Family History Family History Father No problems noted. Mother No problems noted. Family history: reviewed and not pertinent Surgical History Surgical History History of surgery Social History Social History Household Members: Spouse Housing: House Do you presently have visiting nurse or other home services: Yes Alcohol intake: never Comment: 1;1 SITTER Patient Tobacco Use Status: Never used Tobacco e-Cigarette/Vaping Use: Never Used Second Hand Smoke Exposure: No Advance Directives Date on File: 09/21/21 service: No Current occupational status: unemployed and retired Meds Allergies Allergy/AdvReac Type Severity Reaction Status Date / Time No Known Allergies Allergy Verified 10/10/22 11:13 Active Medications: Current Medications Acetaminophen (Acetaminophen 325 Mg Tablet) 650 mg PO Q6H PRN PRN Reason: Pain, Mild (Pain Scale 1-3) Al Hydroxide/Mg Hydroxide (Magnesium Hydrox/Alum Hydrox 30 Ml Oral.Susp) 30 ml PO Q4H PRN PRN Reason: Heartburn/Nausea Docusate Sodium (Docusate Sodium 100 Mg Capsule) 100 mg PO BID MIKKI Last Admin: 03/17/23 22:19 Dose: 100 mg Heparin Sodium (Porcine) (Heparin Sodium,Porcine 5,000 Unit/Ml Vial) 5,000 unit SUBCUT Q8H [facility] Last Admin: 03/17/23 22:19 Dose: 5,000 unit Cefepime HCl 1 gm/ Sodium (Chloride) 50 mls @ 100 mls/hr IV DAILY [facility] Stop: 03/24/23 09:29 Lactated Ringer's (Lr) 1,000 mls @ 125 mls/hr IVCONT .Q8H [facility] Last Admin: 03/17/23 20:19 Dose: 125 mls/hr Magnesium Hydroxide (Milk Of Magnesia 30 Ml Oral.Susp) 30 ml PO DAILY PRN PRN Reason: Constipation Melatonin (Melatonin 3 Mg Tablet) 6 mg PO BEDTIME PRN PRN Reason: Insomnia Ondansetron HCl (Ondansetron Hcl 4 Mg/2 Ml Vial) 4 mg IVPUSH Q8H PRN PRN Reason: Nausea and Vomiting Sodium Chloride (0.9 % Sodium Chloride Flush 3 Ml Syringe) 3 ml IVFLUSH QSHIFT [facility] Last Admin: 03/17/23 16:48 Dose: Not Given Home Medications Medication Instructions Recorded Confirmed Last Taken Type ascorbic acid (vitamin C) 1,000 mg 1,000 mg PO DAILY 03/17/23 03/17/23 Unknown History tablet aspirin 81 mg tablet,delayed 81 mg PO DAILY 03/17/23 03/17/23 Unknown History release methenamine hippurate 1 gram tablet 1 g feeding tube daily 03/17/23 03/17/23 Unknown History Physical Exam 2 Vital Signs: Vital Signs: Last Vital Signs Temp 100.4 F 03/17/23 20:00 Pulse 98 03/17/23 20:00 Resp 20 03/17/23 20:00 BP 110/51 L 03/17/23 20:00 Pulse Ox 96 03/17/23 20:00 O2 Del Method Room Air 03/17/23 20:00 BMI result Body Mass Index 28.9 Const: General: cooperative HEENT: Head: Yes normal to inspection Face and sinus: Yes normal facial exam Mouth: Normal oral and palatal mucosa present Teeth and gingiva: d entition normal Eyes: General: appearance normal, both eyes and all related structures P upils: Equal, round and reactive pupils present Resp: Effort & Inspection: normal respiratory effort Cardio: Rate: regular rate Rhythm: regular rhythm GI: Palpation (GI): Soft to palpation and nontender : General: Yes no CVA tenderness Back/Spine/Pelvis: Back: no CVA tenderness Skin: General skin exam: no rashes or lesions noted Neuro: General: moves all extremities Cranial nerves: Yes Equal, round and reactive pupils present Extrem: General: Yes normal to inspection Psych: Other: confusion Results Labs 03/16/23 23:58 03/17/23 08:14 Labs: Short CBC 03/16/23 Range/Units 23:58 WBC 8.7 (4.8-10.8) X10*3/uL Hgb 11.6 L (14.0-18.0) g/dl Hct 34.6 L (42.0-52.0) % Plt Count 207 (160-400) X10*3/uL BMP 03/17/23 03/17/23 00:36 08:14 Sodium 138 139 Potassium 3.8 4.5 Chloride 111 H 112 H Carbon Dioxide 18 L 18 L BUN 46 H 50 H Creatinine 4.11 H* 4.56 H* Calcium 10.2 D 11.0 H D Liver Function 03/17/23 Range/Units 00:36 Total Bilirubin 1.4 H (0.0-1.0) mg/dL Direct Bilirubin 0.5 (0.0-0.5) mg/dL AST 13 (5-37) U/L ALT 6 (0-40) U/L Alkaline Phosphatase 57 (39-117) U/L Albumin 2.9 L (3.5-5.0) g/dL Urine 03/17/23 Range/Units 03:50 Urine Color Yellow Urine Appearance Turbid Urine pH 8.0 (5.0-9.0) Ur Specific [place] 1.020 (1.005-1.025) Urine Protein 300 (3+) H (Neg-Trace) mg/dL Urine Glucose (UA) Negative (Negative) mg/dL Microbiology Microbiology Results: Microbiology 03/16/23 23:58 Blood - Venous Blood Culture - Preliminary Prelim: GNR Gram Stain only 03/16/23 23:58 Blood - Venous Blood Culture - Preliminary Prelim: GNR Gram Stain only Assessment and Plan (1) Severe sepsis: Status: Acute He possibly has urinary sepsis. He has possible E coli or Klebsiella. (2) Fever: Status: Acute Plan Would continue Cefepime. Await blood and urine culture. Duration antibiotics to be determined.
[2023-03-18 00:19] VITALS: BP 94/44; PULSE 84; RESP 18; TEMP 37.1; O2SAT 97
[2023-03-18] MEDS: 0.9 % Sodium Chloride Flush 3 ML SYRINGE IVFLUSH ×2 (00:22→09:31)
[2023-03-18 03:51] VITALS: BP 104/61; PULSE 80; RESP 18; TEMP 37.1; O2SAT 96
[2023-03-18] MEDS: Lactated Ringers 1,000 ML 125 ML IVCONT ×3 (04:17→21:17)
[2023-03-18] MEDS: Heparin Sodium,Porcine 5,000 UNIT/ML VIAL 5000 UNIT SUBCUT ×3 (04:18→21:17)
[2023-03-18 07:23] VITALS: BP 110/57; PULSE 71; RESP 18; TEMP 36.1; O2SAT 98
[2023-03-18 08:03] LABS: Basophils Percent Auto 0.4 % (0-2); Eosinophils Percent Auto 0.4 % (0-4); Hematocrit 26.3 % (42.0-52.0); Hemoglobin 8.6 g/dl (14.0-18.0); Imm Gran Abs Auto 0.08 X10*3/uL (0.00-0.03); Imm Gran Pct Auto 0.8 % (0.0-0.4); Lymphocytes Absolute Auto 0.9 X10*3/uL (1.2-4.9); Lymphocytes Percent Auto 8.6 % (20-40); MANUAL DIFF FLAG SCAN; Mean Corpuscular HGB Conc 32.7 g/dl (31.0-36.0); Mean Corpuscular Volume 88.6 fL (80.0-98.0); Mean Platelet Volume 9.5 fL (9.4-12.4); Monocytes Absolute Auto 1.8 X10*3/uL (0.1-1.2); Neutrophils Absolute Auto 7.1 x10*3/uL (2.0-8.3); Neutrophils Percent Auto 71.8 % (45-73); Platelet Count 107 X10*3/uL (160-400); Red Blood Count 2.97 X10*6/uL (4.60-5.80); Red Cell Distribution Width 16.9 % (11.0-16.0); SCAN SMEAR FLAG 1; White Blood Count 9.9 X10*3/uL (4.8-10.8)
[2023-03-18 08:27] LABS: SLIDE REVIEW VERIFIED
[2023-03-18 08:33] LABS: Anion Gap 13 (12-20); Blood Urea Nitrogen 60 mg/dL (9-16); Calcium 10.2 mg/dL (8.4-10.2); Carbon Dioxide 17 mmol/L (22-29); Chloride 115 mmol/L (96-108); Glucose Random 107 mg/dL (60-115); Potassium 3.8 mmol/L (3.3-5.1); Sodium 141 mmol/L (135-145)
[2023-03-18 08:51] LABS: Creatinine Clr Calc Pharmacy 12.4; Estimated Glomerular Filt Rate 12
[2023-03-18] MEDS: cefEPime HCl 1 GM in 0.9 % Sodium Chloride 50 ML IV (09:31)
--- NOTE | 2023-03-18 13:47 | P.PNIM_ITS ---
Subjective Subjective Date of Service: 03/18/23 Interval History: At baseline confusion, no fever Physical Exam 2 Vital Signs: Vital Signs: Last Vital Signs Temp 96.9 F 03/18/23 07:23 Pulse 71 03/18/23 07:23 Resp 18 03/18/23 07:23 BP 110/57 L 03/18/23 07:23 Pulse Ox 98 03/18/23 07:23 O2 Del Method Room Air 03/18/23 07:23 BMI result Body Mass Index 28.9 Const: Other: General: alert but not oriented, no acute distress Resp: CTA bilateral CVS: S1,S2,RRR GI: +BS, NT, no distention Skin: No rash Neuro: motor grossly intact Psych: appropriate affect Objective Data Active Medications Acetaminophen (Acetaminophen 325 Mg Tablet) 650 mg PO Q6H PRN PRN Reason: Pain, Mild (Pain Scale 1-3) Al Hydroxide/Mg Hydroxide (Magnesium Hydrox/Alum Hydrox 30 Ml Oral.Susp) 30 ml PO Q4H PRN PRN Reason: Heartburn/Nausea Docusate Sodium (Docusate Sodium 100 Mg Capsule) 100 mg PO BID [facility] Last Admin: 03/18/23 09:32 Dose: Not Given Documented By: KAMRYN Non-Admin Reason: pt too drowsy Heparin Sodium (Porcine) (Heparin Sodium,Porcine 5,000 Unit/Ml Vial) 5,000 unit SUBCUT Q8H [facility] Last Admin: 03/18/23 13:33 Dose: 5,000 unit Documented By: KAMRYN Cefepime HCl 1 gm/ Sodium (Chloride) 50 mls @ 100 mls/hr IV DAILY [facility] Stop: 03/24/23 09:29 Last Infusion: 03/18/23 10:32 Dose: Infused Documented By: KAMRYN Lactated Ringer's (Lr) 1,000 mls @ 125 mls/hr IVCONT .Q8H [facility] Last Admin: 03/18/23 13:32 Dose: 125 mls/hr Documented By: KAMRYN Magnesium Hydroxide (Milk Of Magnesia 30 Ml Oral.Susp) 30 ml PO DAILY PRN PRN Reason: Constipation Melatonin (Melatonin 3 Mg Tablet) 6 mg PO BEDTIME PRN PRN Reason: Insomnia Ondansetron HCl (Ondansetron Hcl 4 Mg/2 Ml Vial) 4 mg IVPUSH Q8H PRN PRN Reason: Nausea and Vomiting Sodium Chloride (0.9 % Sodium Chloride Flush 3 Ml Syringe) 3 ml IVFLUSH QSHIFT [facility] Last Admin: 03/18/23 09:31 Dose: 3 ml Documented By: KAMRYN Labs 03/18/23 07:43 03/18/23 07:43 Labs: Laboratory Results - last 24 hr 03/17/23 03/18/23 00:36 07:43 MCV 88.6 MCH 29.0 MCHC 32.7 RDW 16.9 H Plt Count 107 L D MPV 9.5 Immature Gran % (Auto) 0.8 H Neut % (Auto) 71.8 Lymph % (Auto) 8.6 L [place] % (Auto) 18.0 H Eos % (Auto) 0.4 Baso % (Auto) 0.4 Lymph # (Auto) 0.9 L [place] # (Auto) 1.8 H Eos # (Auto) 0.0 Baso # (Auto) 0.0 Abs Immat Gran (auto) 0.08 H Absolute Neuts (auto) 7.1 Absolute Nucleated RBC 0.000 Nucleated RBC % (auto) 0.0 Smear Tech's Comments VERIFIED Anion Gap 13 13 Estim Creat Clear Calc 13.6 12.4 Estimated GFR 14 12 Random Glucose 97 107 Calcium 10.2 D 10.2 D Magnesium 2.0 Total Bilirubin 1.4 H Direct Bilirubin 0.5 AST 13 ALT 6 Alkaline Phosphatase 57 Total Protein 6.4 L Albumin 2.9 L Lipase 11 Microbiology Microbiology Results: Microbiology 03/16/23 23:58 Blood Culture - Preliminary Blood - Venous Gram negative larissa 03/16/23 23:58 Blood Culture - Preliminary Blood - Venous Gram negative larissa 03/17/23 03:50 Urine Culture - Final Urine Catheterized - Hernandez Catheter Assessment and Plan (1) Severe sepsis: Status: Acute Plan 82 year old white male with past medical history of dementia, cardiomyopathy, coronary artery disease s/p NSTEMI, hyperlipidemia, hypertension, pulmonary embolism, recurrent UTI's with Pseudomonas/VRE, non-malignant penile mass s/p SPT placement, s/p G-tube placement here with: 1. Severe sepsis due to UTI - bacteemia, Blood culture 03/16, 04/19 gramnegative larissa -continue Cefepime started 02/17, follow sensitivity -ID consult noted 2. UTI- treat as above 3. Acute renal failure, - creatinine up to 4.11 from 1.11 - differential diagnosis to include pre-renal azotemia vus obstruction, Cr unchanged with IVF, hernandez to rule out obstruction and US, continue IVF 4. Encephalopathy - likely due to UTI/sepsis - treat underlying condition (UTI) DVT: SC heparin CODE STATUS: DNR/DNI inpt for IV Abx for sepsis/bactereemia, sensitivity not yet available Quality Stroke Does the patient have a stroke diagnosis?: No VTE Prior VTE?: No VTE Risk Level:: Medical - moderate - high VTE Device Contraindication: N/A - Device Ordered VTE Drug Contraindication: N/A - Med Ordered
[2023-03-18 15:18] VITALS: BP 108/60; PULSE 71; RESP 20; TEMP 36.8; O2SAT 96
[2023-03-18 19:10] VITALS: BP 120/66; PULSE 75; RESP 18; TEMP 36.4; O2SAT 97
[2023-03-18] MEDS: Docusate Sodium 100 MG CAPSULE PO (21:17)
[2023-03-19 03:32] VITALS: BP 154/81; PULSE 98; RESP 20; TEMP 37.1; O2SAT 96
[2023-03-19] MEDS: Heparin Sodium,Porcine 5,000 UNIT/ML VIAL 5000 UNIT SUBCUT ×2 (05:16→20:58)
[2023-03-19] MEDS: Lactated Ringers 1,000 ML 125 ML IVCONT (05:17)
--- NOTE | 2023-03-19 05:35 | PC.NURSE ---
Pt noted to be winded with exertion,sats 96% on room air,lungs clear with few sl exp wheezes,no crackles noted.Dr Kim updated regarding ? hold IV fluids or decrease flow rate. states ok to continue fluids for sepsis as long as no crackles.Pt comf.Cont to monitor.
[2023-03-19 07:00] VITALS: BP 138/81; PULSE 97; RESP 20; TEMP 37; O2SAT 95
--- NOTE | 2023-03-19 07:40 | PM.UROCN ---
History of Present Illness Consult details Consult date: 03/18/23 Narrative: 82-year-old male with a history of dementia, coronary disease, cardiomegaly, [place], high cholesterol, hypertension, pulmonary embolism, hyperlipidemia, with urinary retention and chronic suprapubic catheter who was sent to the emergency department for weakness, confusion and altered mental status. Urology consulted: Neurogenic bladder The patient is a poor historian; the is at bedside and stated that the VNA changes the SP tube. last changed 03/13/23 Review of Systems Review of Systems: Yes all other systems are reviewed and are negative Constitutional: Constitutional: Reports no additional constitutional complaints Eyes: Eyes: Reports no additional eye complaints ENT: Reports system reviewed and no additional complaints, except as documented Cardiovascular: Cardiovascular: Denies dyspnea Respiratory: Respiratory: Denies cough and Denies dyspnea Gastrointestinal: Gastrointestinal: Reports no additional gastrointestinal complaints Musculoskeletal: Musculoskeletal: Reports no additional musculoskeletal complaints Integumentary/Breasts: Skin/Breast: Denies rash and Denies unusual bruising Neurologic: Reports system reviewed and no additional complaints, except as documented Psychiatric: Psychiatric: Reports no additional psychiatric complaints Endocrine: Endocrine: Reports no additional endocrine complaints Hematologic/Lymphatic: Hematologic/Lymphatic: Reports no additional hematologic/lymphatic complaints Allergic/Immunologic: Allergic/Immunologic: Reports no additional allergic/immunologic complaints [facility] Past Medical History Medical History Gastrostomy tube in place Dementia with behavioral disturbance Dementia with psychosis Bladder spasm Coronary artery disease Cardiomyopathy Acute subendocardial [place] of anterior wall BPH w urinary obs/LUTS Urinary retention Shortness of breath OA (osteoarthritis) Hypercholesterolemia HTN (hypertension) Penile mass NSTEMI (non-ST elevated myocardial infarction) Pulmonary embolism Hyperlipidemia Accelerated essential hypertension Family History Family History Father No problems noted. Mother No problems noted. Family history: reviewed and not pertinent Surgical History Surgical History History of surgery Social History Social History Household Members: Spouse Housing: House Do you presently have visiting nurse or other home services: Yes Alcohol intake: never Comment: 1:1 sitter Patient Tobacco Use Status: Never used Tobacco e-Cigarette/Vaping Use: Never Used Second Hand Smoke Exposure: No Advance Directives Date on File: 09/21/21 service: No Current occupational status: unemployed and retired Meds Allergies Allergy/AdvReac Type Severity Reaction Status Date / Time No Known Allergies Allergy Verified 10/10/22 11:13 Active Medications: Current Medications Acetaminophen (Acetaminophen 325 Mg Tablet) 650 mg PO Q6H PRN PRN Reason: Pain, Mild (Pain Scale 1-3) Al Hydroxide/Mg Hydroxide (Magnesium Hydrox/Alum Hydrox 30 Ml Oral.Susp) 30 ml PO Q4H PRN PRN Reason: Heartburn/Nausea Docusate Sodium (Docusate Sodium 100 Mg Capsule) 100 mg PO BID COUNT INCLUDES [facility] Last Admin: 03/18/23 21:17 Dose: 100 mg Heparin Sodium (Porcine) (Heparin Sodium,Porcine 5,000 Unit/Ml Vial) 5,000 unit SUBCUT Q8H [facility] Last Admin: 03/19/23 05:16 Dose: 5,000 unit Cefepime HCl 1 gm/ Sodium (Chloride) 50 mls @ 100 mls/hr IV DAILY [facility]CLUD[facility] Stop: 03/24/23 09:29 Last Infusion: 03/18/23 10:32 Dose: Infused Lactated Ringer's (Lr) 1,000 mls @ 125 mls/hr IVCONT .Q8H [facility] Last Admin: 03/19/23 05:17 Dose: 125 mls/hr Magnesium Hydroxide (Milk Of Magnesia 30 Ml Oral.Susp) 30 ml PO DAILY PRN PRN Reason: Constipation Melatonin (Melatonin 3 Mg Tablet) 6 mg PO BEDTIME PRN PRN Reason: Insomnia Ondansetron HCl (Ondansetron Hcl 4 Mg/2 Ml Vial) 4 mg IVPUSH Q8H PRN PRN Reason: Nausea and Vomiting Sodium Chloride (0.9 % Sodium Chloride Flush 3 Ml Syringe) 3 ml IVFLUSH QSHIFT [facility] Last Admin: 03/19/23 00:25 Dose: Not Given Home Medications Medication Instructions Recorded Confirmed Last Taken Type ascorbic acid (vitamin C) 1,000 mg 1,000 mg PO DAILY 03/17/23 03/17/23 Unknown History tablet aspirin 81 mg tablet,delayed 81 mg PO DAILY 03/17/23 03/17/23 Unknown History release methenamine hippurate 1 gram tablet 1 g feeding tube daily 03/17/23 03/17/23 Unknown History Physical Exam Vital Signs: Vital Signs: Last Vital Signs Temp 98.6 F 03/19/23 07:00 Pulse 97 03/19/23 07:00 Resp 20 03/19/23 07:00 BP 138/81 03/19/23 07:00 Pulse Ox 95 03/19/23 07:00 O2 Del Method Room Air 03/19/23 07:00 BMI result Body Mass Index 28.9 Const: General: no acute distress and well developed Orientation/consciousness: patient oriented x3 HEENT: Head: Yes normocephalic and Yes atraumatic Eyes: Conjunctivae: conjunctivae normal Neck: Neck: Yes normal visual inspection Chest: Chest palpation & inspection: normal inspection of the chest Resp: Effort & Inspection: normal respiratory effort Cardio: Rate: regular rate GI: Inspection: Yes normal to inspection Palpation (GI): Soft to palpation : Other: SP tube intact Skin: General skin exam: no rashes or lesions noted Neuro: General: patient oriented x3 Psych: Appearance: grossly normal Affect: normal affect Results Labs 03/20/23 09:39 03/23/23 05:31 Labs: Abnormal lab results 03/18/23 Range/Units 07:43 RBC 2.97 L D (4.60-5.80) X10*6/uL Hgb 8.6 L D (14.0-18.0) g/dl Hct 26.3 L D (42.0-52.0) % RDW 16.9 H (11.0-16.0) % Plt Count 107 L D (160-400) X10*3/uL Immature Gran % (Auto) 0.8 H (0.0-0.4) % Lymph % (Auto) 8.6 L (20-40) % [place] % (Auto) 18.0 H (2-11) % Lymph # (Auto) 0.9 L (1.2-4.9) X10*3/uL [place] # (Auto) 1.8 H (0.1-1.2) X10*3/uL Abs Immat Gran (auto) 0.08 H (0.00-0.03) X10*3/uL Chloride 115 H (96-108) mmol/L Carbon Dioxide 17 L (22-29) mmol/L BUN 60 H (9-16) mg/dL Creatinine 4.58 H* (0.5-1.4) mg/dL Short CBC 03/18/23 Range/Units 07:43 WBC 9.9 (4.8-10.8) X10*3/uL Hgb 8.6 L D (14.0-18.0) g/dl Hct 26.3 L D (42.0-52.0) % Plt Count 107 L D (160-400) X10*3/uL BMP 03/18/23 07:43 Sodium 141 Potassium 3.8 Chloride 115 H Carbon Dioxide 17 L BUN 60 H Creatinine 4.58 H* Calcium 10.2 D Urine 03/17/23 Range/Units 03:50 Urine Color Yellow Urine Appearance Turbid Urine pH 8.0 (5.0-9.0) Ur Specific [place] 1.020 (1.005-1.025) Urine Protein 300 (3+) H (Neg-Trace) mg/dL Urine Glucose (UA) Negative (Negative) mg/dL All other labs normal. Assessment and Plan (1) Hypotonic neurogenic bladder: Status: Acute (2) UTI (urinary tract infection): Status: Resolved (3) Suprapubic catheter: Status: Acute Plan The patient is receiving IV abx SP tube intact draining adequately, no indication to change on this admission Cont VNA changes q 4 weeks Procedures Date of Service Date of Service: 04/08/23
--- NOTE | 2023-03-19 08:35 | MHC.CM.PN ---
IMM 1/2. Pt with confusion, intake assessment completed with pts /HCP Shelby ([phone]). Pt lives at home with his , she is his commercial announcer. He is active with [facility], pt uses a walker and wheelchair. Transportation will be via [facility]/[place]. PCP: Dr. Chester Garcia
[2023-03-19] MEDS: 0.9 % Sodium Chloride Flush 3 ML SYRINGE IVFLUSH ×2 (08:37→20:58)
[2023-03-19] MEDS: cefEPime HCl 1 GM in 0.9 % Sodium Chloride 50 ML IV (08:37)
[2023-03-19] MEDS: Docusate Sodium 100 MG CAPSULE PO ×2 (08:43→20:58)
--- NOTE | 2023-03-19 10:18 | PM.CNNEP ---
History of Present Illness Reason for Consult Consult date: 03/20/23 Reason for consult: ALETHEA Chief Complaint Chief complaint: Severe Sepsis; UTI; ARF History of Present Illness Narrative: 82 year old white male with a history of dementia, cardiomyopathy, coronary artery disease s/p NSTEMI, hyperlipidemia, hypertension, pulmonary embolism, recurrent UTI's with Pseudomonas/VRE, non-malignant penile mass s/p SPT placement, s/p G-tube placement who was sent to the emergency department for evaluation of increasing weakness and confusion. 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 Mother No problems noted. Family history: reviewed and not pertinent Surgical History Surgical History History of surgery Social History Social History Household Members: Spouse Housing: House Do you presently have visiting nurse or other home services: Yes Alcohol intake: never Comment: 1:1 sitter Patient Tobacco Use Status: Never used Tobacco e-Cigarette/Vaping Use: Never Used Second Hand Smoke Exposure: No Advance Directives Date on File: 09/21/21 service: No Current occupational status: unemployed and retired Meds Allergies Allergy/AdvReac Type Severity Reaction Status Date / Time No Known Allergies Allergy Verified 10/10/22 11:13 Active Medications: Current Medications Acetaminophen (Acetaminophen 325 Mg Tablet) 650 mg PO Q6H PRN PRN Reason: Pain, Mild (Pain Scale 1-3) Al Hydroxide/Mg Hydroxide (Magnesium Hydrox/Alum Hydrox 30 Ml Oral.Susp) 30 ml PO Q4H PRN PRN Reason: Heartburn/Nausea Docusate Sodium (Docusate Sodium 100 Mg Capsule) 100 mg PO BID [facility] Last Admin: 03/19/23 08:43 Dose: 100 mg Heparin Sodium (Porcine) (Heparin Sodium,Porcine 5,000 Unit/Ml Vial) 5,000 unit SUBCUT Q8H [facility] Last Admin: 03/19/23 05:16 Dose: 5,000 unit Cefepime HCl 1 gm/ Sodium (Chloride) 50 mls @ 100 mls/hr IV DAILY [facility] Stop: 03/24/23 09:29 Last Infusion: 03/19/23 09:13 Dose: Infused Magnesium Hydroxide (Milk Of Magnesia 30 Ml Oral.Susp) 30 ml PO DAILY PRN PRN Reason: Constipation Melatonin (Melatonin 3 Mg Tablet) 6 mg PO BEDTIME PRN PRN Reason: Insomnia Ondansetron HCl (Ondansetron Hcl 4 Mg/2 Ml Vial) 4 mg IVPUSH Q8H PRN PRN Reason: Nausea and Vomiting Sodium Chloride (0.9 % Sodium Chloride Flush 3 Ml Syringe) 3 ml IVFLUSH QSHIFT [facility] Last Admin: 03/19/23 08:37 Dose: 3 ml Home Medications Medication Instructions Recorded Confirmed Last Taken Type ascorbic acid (vitamin C) 1,000 mg 1,000 mg PO DAILY 03/17/23 03/17/23 Unknown History tablet aspirin 81 mg tablet,delayed 81 mg PO DAILY 03/17/23 03/17/23 Unknown History release methenamine hippurate 1 gram tablet 1 g feeding tube daily 03/17/23 03/17/23 Unknown History Physical Exam Vital Signs: Last Vital Signs Temp 98.6 F 03/19/23 07:00 Pulse 97 03/19/23 07:00 Resp 20 03/19/23 07:00 BP 138/81 03/19/23 07:00 Pulse Ox 95 03/19/23 07:00 O2 Del Method Room Air 03/19/23 07:00 BMI result Body Mass Index 28.9 Const General: comfortable Nutritional Appearance: well nourished Orientation/consciousness: patient oriented x3 HEENT Head: No normal to inspection Mouth: moist mucous membranes Neck Neck: Yes supple and Yes no JVD Resp Auscultation: clear to auscultation bilaterally, no rales and rub present Cardio Jugular venous distension: no JVD Palpation: no palpable S3 and no palpable S4 Heart sounds: no rubs GI Palpation (GI): Soft to palpation and nontender Percussion: No Fluid wave present General: Yes no CVA tenderness Back/Spine/Pelvis Back: no CVA tenderness Skin General skin exam: no rashes or lesions noted Neuro General: patient oriented x3 Extrem General: Yes no pedal edema and No clubbing Results Lab Results 03/18/23 07:43 03/19/23 12:14 Lab results: Chemistry 03/17/23 03/17/23 03/18/23 00:36 08:14 07:43 Sodium 138 139 141 Potassium 3.8 4.5 3.8 Carbon Dioxide 18 L 18 L 17 L BUN 46 H 50 H 60 H Creatinine 4.11 H* 4.56 H* 4.58 H* Calcium 10.2 D 11.0 H D 10.2 D Hematology 03/16/23 03/18/23 23:58 07:43 WBC 8.7 9.9 Hgb 11.6 L 8.6 L D Plt Count 207 107 L D Urinalysis 03/17/23 03:50 Urine Color Yellow Urine Appearance Turbid Urine pH 8.0 Ur Specific [place] 1.020 Urine Protein 300 (3+) H Urine Glucose (UA) Negative Urine Ketones Trace Urine Blood Large (3+) H Urine Nitrite Negative Ur Leukocyte Esterase Large (3+) H Urine RBC >20 H Urine WBC >50 H Ur Squamous Epith Cells 3-5 Hyaline Casts 11-20 Assessment and Plan (1) Acute kidney injury: Status: Inactive Plan 82 year old white male with a history of dementia, cardiomyopathy, coronary artery disease s/p NSTEMI, hyperlipidemia, hypertension, pulmonary embolism, recurrent UTI's with Pseudomonas/VRE, non-malignant penile mass s/p SPT placement, s/p G-tube placement - Now with ALETHEA ALETHEA - Possibly from ATN Left [place]- seems to be chronic. No obstruction on right Suggest Keep I > O Antibiotics evaluation No indication for dialysis yet Check SPEP and iPTH due to hypercalcemia Procedures Date of Service Date of Service: 03/20/23
--- NOTE | 2023-03-19 11:45 | P.PNIM_ITS ---
Subjective Subjective Date of Service: 03/19/23 Interval History: Seemingly more confused today, getting out of bed, US of kidney show left hydro that is worse from prior Physical Exam 2 Vital Signs: Vital Signs: Last Vital Signs Temp 98.6 F 03/19/23 07:00 Pulse 97 03/19/23 07:00 Resp 20 03/19/23 07:00 BP 138/81 03/19/23 07:00 Pulse Ox 95 03/19/23 07:00 O2 Del Method Room Air 03/19/23 07:00 BMI result Body Mass Index 28.9 Const: Other: General: Not oriented at all Resp: CTA bilateral CVS: S1,S2,RRR GI: +BS, NT, no distention Skin: No rash Neuro: motor grossly intact Psych: appropriate affect Objective Data Active Medications Acetaminophen (Acetaminophen 325 Mg Tablet) 650 mg PO Q6H PRN PRN Reason: Pain, Mild (Pain Scale 1-3) Al Hydroxide/Mg Hydroxide (Magnesium Hydrox/Alum Hydrox 30 Ml Oral.Susp) 30 ml PO Q4H PRN PRN Reason: Heartburn/Nausea Docusate Sodium (Docusate Sodium 100 Mg Capsule) 100 mg PO BID [facility] Last Admin: 03/19/23 08:43 Dose: 100 mg Documented By: KAMRYN Heparin Sodium (Porcine) (Heparin Sodium,Porcine 5,000 Unit/Ml Vial) 5,000 unit SUBCUT Q8H [facility] Last Admin: 03/19/23 05:16 Dose: 5,000 unit Documented By: LUIS M Cefepime HCl 1 gm/ Sodium (Chloride) 50 mls @ 100 mls/hr IV DAILY [facility] Stop: 03/24/23 09:29 Last Infusion: 03/19/23 09:13 Dose: Infused Documented By: KAMRYN Magnesium Hydroxide (Milk Of Magnesia 30 Ml Oral.Susp) 30 ml PO DAILY PRN PRN Reason: Constipation Melatonin (Melatonin 3 Mg Tablet) 6 mg PO BEDTIME PRN PRN Reason: Insomnia Olanzapine (Olanzapine 10 Mg Vial) 2.5 mg IM Q6H PRN PRN Reason: agitation and restlness Ondansetron HCl (Ondansetron Hcl 4 Mg/2 Ml Vial) 4 mg IVPUSH Q8H PRN PRN Reason: Nausea and Vomiting Sodium Chloride (0.9 % Sodium Chloride Flush 3 Ml Syringe) 3 ml IVFLUSH QSHIFT [facility] Last Admin: 03/19/23 08:37 Dose: 3 ml Documented By: KAMRYN Labs 03/18/23 07:43 03/18/23 07:43 Labs: Laboratory Results - last 24 hr 03/17/23 00:36 Anion Gap 13 Estim Creat Clear Calc 13.6 Estimated GFR 14 Random Glucose 97 Calcium 10.2 D Total Bilirubin 1.4 H Direct Bilirubin 0.5 AST 13 ALT 6 Alkaline Phosphatase 57 Total Protein 6.4 L Albumin 2.9 L Lipase 11 Microbiology Microbiology Results: Microbiology 03/16/23 23:58 Blood Culture - Final Blood - Venous Proteus mirabilis 03/16/23 23:58 Blood Culture - Final Blood - Venous Proteus mirabilis 03/17/23 03:50 Urine Culture - Final Urine Catheterized - Barry Catheter Assessment and Plan (1) Severe sepsis: Status: Acute Plan 82 year old white male with past medical history of dementia, cardiomyopathy, coronary artery disease s/p NSTEMI, hyperlipidemia, hypertension, pulmonary embolism, recurrent UTI's with Pseudomonas/VRE, non-malignant penile mass s/p SPT placement, s/p G-tube placement here with: 1. Severe sepsis due to UTI - bacteemia, Blood culture 03/16, 2/2 Proteus mirabilis, sens to Ceftriaxone -continue Cefepime started 03/16, change to Cefftriaxone 03/19/23 -ID consult noted 2. UTI- as above 3. Acute renal failure, Cr unchanged. Repeat pending, US of kidney show stones and Left [place], has suprapubic cath. Continue IVF at reduce rate, consult urology, Nephrology following 4. Encephalopathy - likely due to UTI/sepsis with underlying dementia 5. Dementia with agitation, add Zyprexa for extreme restlness DVT: SC heparin CODE STATUS: DNR/DNI inpt for IV Abx for sepsis/bactereemia, and management of delirium, this cannot be done on outpatient bassis right now Quality Stroke Does the patient have a stroke diagnosis?: No VTE Prior VTE?: No VTE Risk Level:: Medical - moderate - high VTE Device Contraindication: N/A - Device Ordered VTE Drug Contraindication: N/A - Med Ordered
[2023-03-19 12:45] LABS: Anion Gap 11 (12-20); Blood Urea Nitrogen 56 mg/dL (9-16); Calcium 10.8 mg/dL (8.4-10.2); Carbon Dioxide 20 mmol/L (22-29); Chloride 114 mmol/L (96-108); Creatinine Clr Calc Pharmacy 14.5; Estimated Glomerular Filt Rate 15; Glucose Random 102 mg/dL (60-115); Potassium 3.9 mmol/L (3.3-5.1); Sodium 141 mmol/L (135-145)
[2023-03-19 16:00] VITALS: BP 152/74; PULSE 92; RESP 18; TEMP 36.7; O2SAT 96
[2023-03-19 19:31] VITALS: BP 125/73; PULSE 81; RESP 17; TEMP 36.4; O2SAT 97
[2023-03-19] MEDS: Melatonin 3 MG TABLET 6 MG PO (20:58)
[2023-03-20 03:09] VITALS: BP 128/65; PULSE 70; RESP 18; TEMP 36.7; O2SAT 97
[2023-03-20] MEDS: Heparin Sodium,Porcine 5,000 UNIT/ML VIAL 5000 UNIT SUBCUT ×2 (04:31→12:11)
[2023-03-20 07:49] VITALS: BP 134/64; PULSE 74; RESP 18; TEMP 37.1; O2SAT 95
[2023-03-20 08:30] LABS: Glucose, Whole Blood 82 mg/dL (60-115)
[2023-03-20] MEDS: cefTRIAXone sodium 2 GM in 0.9 % Sodium Chloride 50 ML IV (09:53)
[2023-03-20] MEDS: 0.9 % Sodium Chloride Flush 3 ML SYRINGE IVFLUSH ×3 (09:53→19:44)
[2023-03-20 10:07] LABS: Hematocrit 27.9 % (42.0-52.0); Hemoglobin 9.2 g/dl (14.0-18.0); Mean Corpuscular Hemoglobin 28.8 pg (27.0-33.0); Mean Corpuscular Volume 87.5 fL (80.0-98.0); Mean Platelet Volume 10.1 fL (9.4-12.4); Platelet Count 150 X10*3/uL (160-400); Red Blood Count 3.19 X10*6/uL (4.60-5.80); Red Cell Distribution Width 17.1 % (11.0-16.0); White Blood Count 5.9 X10*3/uL (4.8-10.8)
[2023-03-20 10:20] LABS: Anion Gap 10 (12-20); Blood Urea Nitrogen 54 mg/dL (9-16); Calcium 10.9 mg/dL (8.4-10.2); Carbon Dioxide 21 mmol/L (22-29); Chloride 116 mmol/L (96-108); Estimated Glomerular Filt Rate 15; Glucose Random 106 mg/dL (60-115); Potassium 3.7 mmol/L (3.3-5.1); Sodium 143 mmol/L (135-145)
[2023-03-20 15:05] VITALS: BP 133/71; PULSE 67; RESP 18; TEMP 36.1; O2SAT 95
[2023-03-20 20:00] VITALS: BP 134/57; PULSE 68; RESP 16; TEMP 36.2; O2SAT 97
[2023-03-21 04:00] VITALS: BP 153/76; PULSE 78; RESP 18; TEMP 36.2; O2SAT 95
[2023-03-21 06:57] VITALS: BP 147/67; PULSE 75; RESP 17; TEMP 37.1; O2SAT 95
[2023-03-21 07:33] LABS: Anion Gap 15 (12-20); Blood Urea Nitrogen 50 mg/dL (9-16); Calcium 10.9 mg/dL (8.4-10.2); Carbon Dioxide 20 mmol/L (22-29); Chloride 114 mmol/L (96-108); Creatinine Clr Calc Pharmacy 16.8; Estimated Glomerular Filt Rate 17; Glucose Random 83 mg/dL (60-115); Potassium 3.8 mmol/L (3.3-5.1); Sodium 145 mmol/L (135-145)
[2023-03-21] MEDS: cefTRIAXone sodium 2 GM in 0.9 % Sodium Chloride 50 ML IV (09:40)
--- NOTE | 2023-03-21 11:45 | HO.PM.IMPN ---
Subjective Subjective Date of Service: 03/21/23 Interval History: Patient is less confused but not oriented and no agiation, c/o itchyness all over, no rash this appear to predate hospitalization Physical Exam Vital Signs: Vital Signs: Last Vital Signs Temp 98.7 F 03/21/23 06:57 Pulse 75 03/21/23 06:57 Resp 17 03/21/23 06:57 BP 147/67 H 03/21/23 06:57 Pulse Ox 95 03/21/23 06:57 O2 Del Method Room Air 03/21/23 06:57 BMI result Body Mass Index 28.9 Const: Other: General: confused without agitation Resp: CTA bilateral CVS: S1,S2,RRR GI: +BS, NT, no distention Skin: No rash Neuro: motor grossly intact Psych: appropriate affect Objective Data Active Medications Acetaminophen (Acetaminophen 325 Mg Tablet) 650 mg PO Q6H PRN PRN Reason: Pain, Mild (Pain Scale 1-3) Al Hydroxide/Mg Hydroxide (Magnesium Hydrox/Alum Hydrox 30 Ml Oral.Susp) 30 ml PO Q4H PRN PRN Reason: Heartburn/Nausea Docusate Sodium (Docusate Sodium 100 Mg Capsule) 100 mg PO BID [facility] Last Admin: 03/21/23 09:40 Dose: 100 mg Documented By: DEIDRAEMA Heparin Sodium (Porcine) (Heparin Sodium,Porcine 5,000 Unit/Ml Vial) 5,000 unit SUBCUT Q8H [facility] Last Admin: 03/21/23 06:07 Dose: 5,000 unit Documented By: ELIS Ceftriaxone Sodium 2 gm/ (Sodium Chloride) 50 mls @ 100 mls/hr IV Q24H [facility] Last Infusion: 03/21/23 10:16 Dose: Infused Documented By: JAYCEE Magnesium Hydroxide (Milk Of Magnesia 30 Ml Oral.Susp) 30 ml PO DAILY PRN PRN Reason: Constipation Melatonin (Melatonin 3 Mg Tablet) 6 mg PO BEDTIME PRN PRN Reason: Insomnia Last Admin: 03/19/23 20:58 Dose: 6 mg Documented By: MYNOR Olanzapine (Olanzapine 10 Mg Vial) 2.5 mg IM Q6H PRN PRN Reason: agitation and restlness Ondansetron HCl (Ondansetron Hcl 4 Mg/2 Ml Vial) 4 mg IVPUSH Q8H PRN PRN Reason: Nausea and Vomiting Sodium Chloride (0.9 % Sodium Chloride Flush 3 Ml Syringe) 3 ml IVFLUSH QSHIFT [facility] Last Admin: 03/21/23 09:14 Dose: Not Given Documented By: JAYCEE Non-Admin Reason: No Access Labs 03/20/23 09:39 03/21/23 06:16 Labs: Laboratory Results - last 24 hr 03/21/23 06:16 Hold Purple Top SEE NOTE Anion Gap 15 Estim Creat Clear Calc 16.8 Estimated GFR 17 Random Glucose 83 Calcium 10.9 H Microbiology Microbiology Results: Microbiology 03/19/23 12:14 Blood Culture - Preliminary Blood - Venous No growth after 24 hours. 03/19/23 12:14 Blood Culture - Preliminary Blood - Venous No growth after 24 hours. Assessment and Plan (1) Severe sepsis: Status: Acute Plan 82 year old white male with past medical history of dementia, cardiomyopathy, coronary artery disease s/p NSTEMI, hyperlipidemia, hypertension, pulmonary embolism, recurrent UTI's with Pseudomonas/VRE, non-malignant penile mass s/p SPT placement, s/p G-tube placement here with: 1. Severe sepsis due to UTI - bacteemia, Blood culture 03/16, 04/19 Proteus mirabilis, sens to Ceftriaxone, repeat negative -Cefepime started 03/16, change to Cefftriaxone 03/19/23 -ID consult noted, to po at discharge for 14 days 2. UTI- as above 3. Acute renal failure, Cr slowly trending down, possible ATN from sepsis, and might take time to fully resolved. US showed Hydron on left that was worst compared to prior CT, Uro recommends Abx and no intervention at this time. Will discuss further with Nephrology 4. Encephalopathy - likely due to UTI/sepsis with underlying dementia, spoke to who said he has similar episodes in past 5. Dementia with agitation, add Zyprexa for extreme restlness 6. Ithing to predate hospitalization, no rash, pt picks skin, will try benadryl DVT: SC heparin CODE STATUS: DNR/DNI inpt for IV Abx for sepsis/bactereemia, and management of delirium, this cannot be done on outpatient bassis right now Quality Stroke Does the patient have a stroke diagnosis?: No VTE Prior VTE?: No VTE Risk Level:: Medical - moderate - high VTE Device Contraindication: N/A - Device Ordered VTE Drug Contraindication: N/A - Med Ordered
[2023-03-21 15:24] VITALS: BP 142/67; PULSE 70; RESP 15; TEMP 36.4; O2SAT 95
[2023-03-21] MEDS: 0.9 % Sodium Chloride Flush 3 ML SYRINGE IVFLUSH ×2 (15:43→19:31)
[2023-03-21 20:00] VITALS: BP 156/74; PULSE 74; RESP 15; TEMP 36.6; O2SAT 95
--- NOTE | 2023-03-21 20:34 | PM.PNNEP ---
Subjective Subjective Date of Service: 03/22/23 Interval history: Patient is less confused but not oriented and no agiation, c/o itchyness all over, no rash this appear to predate hospitalization Physical Exam Vital Signs: Vital Signs: Last Vital Signs Temp 97.8 F 03/21/23 20:00 Pulse 74 03/21/23 20:00 Resp 15 03/21/23 20:00 BP 156/74 H 03/21/23 20:00 Pulse Ox 95 03/21/23 20:00 O2 Del Method Room Air 03/21/23 20:00 BMI result Body Mass Index 28.9 Const: Nutritional Appearance: well nourished HEENT: Head: No normal to inspection Mouth: moist mucous membranes Neck: Neck: Yes supple and Yes no JVD Resp: Auscultation: clear to auscultation bilaterally, no rales and rub present Cardio: Jugular venous distension: no JVD Palpation: no palpable S3 and no palpable S4 Heart sounds: no rubs GI: Palpation (GI): Soft to palpation and nontender Percussion: No Fluid wave present : General: Yes no CVA tenderness Back/Spine/Pelvis: Back: no CVA tenderness Skin: General skin exam: no rashes or lesions noted Extrem: General: Yes no pedal edema and No clubbing Objective Data Labs 03/20/23 09:39 03/22/23 05:09 Labs: Laboratory Results - last 24 hr 03/21/23 06:16 Hold Purple Top SEE NOTE Sodium 145 Potassium 3.8 Chloride 114 H Carbon Dioxide 20 L Anion Gap 15 BUN 50 H Creatinine 3.39 H Estim Creat Clear Calc 16.8 Estimated GFR 17 Random Glucose 83 Calcium 10.9 H Microbiology Microbiology Results: Microbiology 03/19/23 12:14 Blood - Venous Blood Culture - Preliminary No growth after 48 hours. 03/19/23 12:14 Blood - Venous Blood Culture - Preliminary No growth after 48 hours. 03/16/23 23:58 Blood - Venous Blood Culture - Final Proteus mirabilis 03/16/23 23:58 Blood - Venous Blood Culture - Final Proteus mirabilis 03/17/23 03:50 Urine Catheterized - Barry Catheter Urine Culture - Final Procedures Date of Service Date of Service: 03/22/23 Assessment & Plan Assessment and plan (1) Acute kidney injury: Status: Inactive Plan 82 year old white male with a history of dementia, cardiomyopathy, coronary artery disease s/p NSTEMI, hyperlipidemia, hypertension, pulmonary embolism, recurrent UTI's with Pseudomonas/VRE, non-malignant penile mass s/p SPT placement, s/p G-tube placement - Now with ALETHEA ALETHEA - Possibly from [facility]N Left [place]- seems to be chronic. No obstruction on right Creatinine is trending down Suggest Keep I > O Antibiotics Appreciate follow up No indication for dialysis yet check SPEP and iPTH due to hypercalcemia Time Spent With Patient Time: Total time managing care of this patient today ____ minutes. Progress Note: Quality Stroke Does the patient have a stroke diagnosis?: No
[2023-03-22 03:47] VITALS: BP 146/70; PULSE 79; RESP 16; TEMP 36.1; O2SAT 95
[2023-03-22 06:55] VITALS: BP 146/80; PULSE 81; RESP 17; TEMP 36.7; O2SAT 96
[2023-03-22] MEDS: cefTRIAXone sodium 2 GM in 0.9 % Sodium Chloride 50 ML IV (08:13)
[2023-03-22] MEDS: 0.9 % Sodium Chloride Flush 3 ML SYRINGE IVFLUSH ×3 (08:14→20:36)
[2023-03-22 10:22] VITALS: BP 146/80; PULSE 81; O2SAT 96
--- NOTE | 2023-03-22 11:17 | HO.PM.IMPN ---
Subjective Subjective Date of Service: 03/22/23 Interval History: Less confused, appear to be at his baseline, pleasant oriented to self, place Physical Exam Vital Signs: Vital Signs: Last Vital Signs Temp 98.1 F 03/22/23 06:55 Pulse 81 03/22/23 10:22 Resp 17 03/22/23 06:55 BP 146/80 H 03/22/23 10:22 Pulse Ox 96 03/22/23 10:22 O2 Del Method Room Air 03/22/23 06:55 BMI result Body Mass Index 28.9 Const: Other: General: no confusion Resp: CTA bilateral CVS: S1,S2,RRR GI: +BS, NT, no distention Skin: No rash Neuro: motor grossly intact Psych: appropriate affect Objective Data Active Medications Acetaminophen (Acetaminophen 325 Mg Tablet) 650 mg PO Q6H PRN PRN Reason: Pain, Mild (Pain Scale 1-3) Al Hydroxide/Mg Hydroxide (Magnesium Hydrox/Alum Hydrox 30 Ml Oral.Susp) 30 ml PO Q4H PRN PRN Reason: Heartburn/Nausea Diphenhydramine HCl (Diphenhydramine Hcl 25 Mg Capsule) 12.5 mg PO Q4H PRN PRN Reason: Itching Last Admin: 03/21/23 12:25 Dose: 12.5 mg Documented By: COTEMA Docusate Sodium (Docusate Sodium 100 Mg Capsule) 100 mg PO BID [facility] Last Admin: 03/22/23 08:13 Dose: 100 mg Documented By: MANDEEP Heparin Sodium (Porcine) (Heparin Sodium,Porcine 5,000 Unit/Ml Vial) 5,000 unit SUBCUT Q8H [facility] Last Admin: 03/22/23 05:43 Dose: 5,000 unit Documented By: ELIS Ceftriaxone Sodium 2 gm/ (Sodium Chloride) 50 mls @ 100 mls/hr IV Q24H [facility] Last Infusion: 03/22/23 08:45 Dose: Infused Documented By: MANDEEP Magnesium Hydroxide (Milk Of Magnesia 30 Ml Oral.Susp) 30 ml PO DAILY PRN PRN Reason: Constipation Melatonin (Melatonin 3 Mg Tablet) 6 mg PO BEDTIME PRN PRN Reason: Insomnia Last Admin: 03/19/23 20:58 Dose: 6 mg Documented By: MYNOR Olanzapine (Olanzapine 10 Mg Vial) 2.5 mg IM Q6H PRN PRN Reason: agitation and restlness Ondansetron HCl (Ondansetron Hcl 4 Mg/2 Ml Vial) 4 mg IVPUSH Q8H PRN PRN Reason: Nausea and Vomiting Sodium Chloride (0.9 % Sodium Chloride Flush 3 Ml Syringe) 3 ml IVFLUSH QSHIFT [facility] Last Admin: 03/22/23 08:14 Dose: 3 ml Documented By: MANDEEP Labs 03/20/23 09:39 03/22/23 05:09 Labs: Laboratory Results - last 24 hr 03/22/23 05:09 Anion Gap 14 Estim Creat Clear Calc 18.5 Estimated GFR 20 Random Glucose 82 Calcium 10.9 H Microbiology Microbiology Results: Microbiology 03/19/23 12:14 Blood Culture - Preliminary Blood - Venous No growth after 48 hours. 03/19/23 12:14 Blood Culture - Preliminary Blood - Venous No growth after 48 hours. Assessment and Plan (1) Severe sepsis: Status: Acute Plan 82 year old white male with past medical history of dementia, cardiomyopathy, coronary artery disease s/p NSTEMI, hyperlipidemia, hypertension, pulmonary embolism, recurrent UTI's with Pseudomonas/VRE, non-malignant penile mass s/p SPT placement, s/p G-tube placement here with: 1. Severe sepsis due to UTI - bacteemia, Blood culture 03/16, 2/2 Proteus mirabilis, sens to Ceftriaxone, repeat negative -Cefepime started 03/16, change to Cefftriaxone 03/19/23 -ID consult noted, to po at discharge for 14 days 2. UTI- as above 3. Acute renal failure, Cr slowly trending down, possible ATN from sepsis, and might take time to fully resolved. US showed Hydron on left that was worst compared to prior CT, Uro recommends Abx and no intervention at this time. Further testing per Nephrology 4. Encephalopathy - likely due to UTI/sepsis with underlying dementia, resolved back to baseline 5. Dementia with agitation, Zyprexa PRN 6. Ithing to predate hospitalization, no rash, pt picks skin, will try benadryl DVT: SC heparin CODE STATUS: DNR/DNI inpt for IV Abx for sepsis/bactereemia, [place] that has needed Ivf, and management of delirium, this cannot be done on outpatient bassis right now pt recommends str vs home with 24 hrs Quality Stroke Does the patient have a stroke diagnosis?: No VTE Prior VTE?: No VTE Risk Level:: Medical - moderate - high VTE Device Contraindication: N/A - Device Ordered VTE Drug Contraindication: N/A - Med Ordered
--- NOTE | 2023-03-22 12:25 | MHC.CM.PN ---
Met with patient and /hcp/Shelby at bedside. PT is recommending STR vs home w/ care. Shelby is the primary director executive communications and prefers for patient to return home and resume VNA services. Shelby feels comfortable managing patient's care, including suprapubic catheter. However, she is open to a meeting with [facility] to explore additional services. Referral entered. CM will continue to follow.
--- NOTE | 2023-03-22 13:56 | P.PNNP_ITS ---
Subjective Subjective Date of Service: 03/22/23 Interval history: Less confused, appear to be at his baseline, pleasant oriented to self, place Physical Exam 2 Vital Signs: Vital Signs: Last Vital Signs Temp 98.1 F 03/22/23 06:55 Pulse 81 03/22/23 10:22 Resp 17 03/22/23 06:55 BP 146/80 H 03/22/23 10:22 Pulse Ox 96 03/22/23 10:22 O2 Del Method Room Air 03/22/23 06:55 BMI result Body Mass Index 28.9 Const: General: comfortable Nutritional Appearance: well nourished HEENT: Head: No normal to inspection Mouth: moist mucous membranes Neck: Neck: Yes supple and Yes no JVD Resp: Auscultation: clear to auscultation bilaterally, no rales and rub present Cardio: Jugular venous distension: no JVD Palpation: no palpable S3 and no palpable S4 Heart sounds: no rubs GI: Palpation (GI): Soft to palpation and nontender Percussion: No Fluid wave present : General: Yes no CVA tenderness Back/Spine/Pelvis: Back: no CVA tenderness Skin: General skin exam: no rashes or lesions noted Extrem: General: Yes no pedal edema and No clubbing Objective Data Labs 03/20/23 09:39 03/22/23 05:09 Labs: Laboratory Results - last 24 hr 03/22/23 05:09 Sodium 145 Potassium 3.9 Chloride 115 H Carbon Dioxide 20 L Anion Gap 14 BUN 47 H Creatinine 3.08 H Estim Creat Clear Calc 18.5 Estimated GFR 20 Random Glucose 82 Calcium 10.9 H Microbiology Microbiology Results: Microbiology 03/19/23 12:14 Blood - Venous Blood Culture - Preliminary No growth after 48 hours. 03/19/23 12:14 Blood - Venous Blood Culture - Preliminary No growth after 48 hours. 03/16/23 23:58 Blood - Venous Blood Culture - Final Proteus mirabilis 03/16/23 23:58 Blood - Venous Blood Culture - Final Proteus mirabilis 03/17/23 03:50 Urine Catheterized - Barry Catheter Urine Culture - Final Procedures Date of Service Date of Service: 03/22/23 Assessment & Plan Assessment and plan (1) Acute kidney injury: Status: Inactive Plan 82 year old white male with a history of dementia, cardiomyopathy, coronary artery disease s/p NSTEMI, hyperlipidemia, hypertension, pulmonary embolism, recurrent UTI's with Pseudomonas/VRE, non-malignant penile mass s/p SPT placement, s/p G-tube placement - Now with ALETHEA ALETHEA - Possibly from [facility]N Left [place]- seems to be chronic. No obstruction on right Creatinine is trending down Suggest Keep I > O Antibiotics Appreciate follow up No indication for dialysis yet check SPEP and iPTH due to hypercalcemia Time Spent With Patient Time: Total time managing care of this patient today ____ minutes. Progress Note: Quality Stroke Does the patient have a stroke diagnosis?: No
[2023-03-22 15:33] VITALS: BP 156/74; PULSE 80; RESP 16; TEMP 36.2; O2SAT 96
[2023-03-22 15:37] VITALS: BP 148/65; PULSE 89; RESP 16; TEMP 36.7; O2SAT 98
[2023-03-23 04:00] VITALS: BP 138/67; PULSE 69; RESP 16; TEMP 36.7; O2SAT 94
[2023-03-23 07:52] VITALS: BP 133/73; PULSE 75; RESP 16; TEMP 36.7; O2SAT 95
--- NOTE | 2023-03-23 10:20 | HO.PM.IMPN ---
Subjective Subjective Date of Service: 03/23/23 Interval History: At baseline confusion, no new issues Physical Exam Vital Signs: Vital Signs: Last Vital Signs Temp 98.0 F 03/23/23 07:52 Pulse 75 03/23/23 07:52 Resp 16 03/23/23 07:52 BP 133/73 03/23/23 07:52 Pulse Ox 95 03/23/23 07:52 O2 Del Method Room Air 03/23/23 07:52 BMI result Body Mass Index 28.9 Const: Other: General: no confusion Resp: CTA bilateral CVS: S1,S2,RRR GI: +BS, NT, no distention Skin: No rash Neuro: motor grossly intact Psych: appropriate affect Objective Data Active Medications Acetaminophen (Acetaminophen 325 Mg Tablet) 650 mg PO Q6H PRN PRN Reason: Pain, Mild (Pain Scale 1-3) Al Hydroxide/Mg Hydroxide (Magnesium Hydrox/Alum Hydrox 30 Ml Oral.Susp) 30 ml PO Q4H PRN PRN Reason: Heartburn/Nausea Diphenhydramine HCl (Diphenhydramine Hcl 25 Mg Capsule) 12.5 mg PO Q4H PRN PRN Reason: Itching Last Admin: 03/21/23 12:25 Dose: 12.5 mg Documented By: JAYCEE Docusate Sodium (Docusate Sodium 100 Mg Capsule) 100 mg PO BID [facility] Last Admin: 03/23/23 08:37 Dose: 100 mg Documented By: GSOIA Heparin Sodium (Porcine) (Heparin Sodium,Porcine 5,000 Unit/Ml Vial) 5,000 unit SUBCUT Q8H [facility] Last Admin: 03/23/23 05:45 Dose: 5,000 unit Documented By: MATTHEW Ceftriaxone Sodium 2 gm/ (Sodium Chloride) 50 mls @ 100 mls/hr IV Q24H [facility] Last Infusion: 03/23/23 09:14 Dose: Infused Documented By: GOSIA Magnesium Hydroxide (Milk Of Magnesia 30 Ml Oral.Susp) 30 ml PO DAILY PRN PRN Reason: Constipation Melatonin (Melatonin 3 Mg Tablet) 6 mg PO BEDTIME PRN PRN Reason: Insomnia Last Admin: 03/19/23 20:58 Dose: 6 mg Documented By: MYNOR Ondansetron HCl (Ondansetron Hcl 4 Mg/2 Ml Vial) 4 mg IVPUSH Q8H PRN PRN Reason: Nausea and Vomiting Sodium Chloride (0.9 % Sodium Chloride Flush 3 Ml Syringe) 3 ml IVFLUSH QSHIFT MIKKI Last Admin: 03/23/23 08:37 Dose: 3 ml Documented By: GOSIA Labs 03/20/23 09:39 03/23/23 05:31 Labs: Laboratory Results - last 24 hr 03/23/23 05:31 Hold Purple Top SEE NOTE Anion Gap 11 L Estim Creat Clear Calc 21.1 Estimated GFR 23 Random Glucose 112 Calcium 11.0 H Assessment and Plan (1) Severe sepsis: Status: Acute Plan 82 year old white male with past medical history of dementia, cardiomyopathy, coronary artery disease s/p NSTEMI, hyperlipidemia, hypertension, pulmonary embolism, recurrent UTI's with Pseudomonas/VRE, non-malignant penile mass s/p SPT placement, s/p G-tube placement here with: 1. Severe sepsis due to UTI - bacteemia, Blood culture 03/16, 04/19 Proteus mirabilis, sens to Ceftriaxone, repeat negative -Cefepime started 03/16, change to Cefftriaxone 03/19/23 -ID consult noted, to po at discharge for 14 days, end day 03/31 2. UTI- as above 3. Acute renal failure, resolving, likely from ATN, Nephro following 4. Encephalopathy - likely due to UTI/sepsis with underlying dementia, resolved back to baseline 5. Dementia with agitation, Zyprexa PRN 6. Ithing to predate hospitalization, no rash, pt picks skin, will try benadryl DVT: SC heparin CODE STATUS: DNR/DNI inpt for IV Abx for sepsis/bactereemia, sharona that has needed Ivf, and management of delirium, this cannot be done on outpatient bassis right now pt recommends str vs home with 24 hrs updated Quality Stroke Does the patient have a stroke diagnosis?: No VTE Prior VTE?: No VTE Risk Level:: Medical - moderate - high VTE Device Contraindication: N/A - Device Ordered VTE Drug Contraindication: N/A - Med Ordered
--- NOTE | 2023-03-23 11:19 | MHC.CM.PN ---
[facility] CALLED PTS S/O, JENNIFER [phone] TO DISCUSS PTS DC PLAN SHE IS AWARE PT IS MEDICALLY CLEARED TO DC AND WILL HAVE VNA SERVICES [facility]IA [facility] SHE DENIED NEEDING ANY FURTHER SERVICES IN THE HOME AND SAYS THE PT IS USUALLY COOPERATIVE WITH HER SHE INDICATED SHE IS NOT HOME CURRENTLY, BUT WILL BE RETURNING HOME THIS AFTERNOON, SHE SAYS HER RIDE IS PICKING HER UP AT 1200. SHE ASKS THAT PT RETURN HOME AFTER [facility]INNER BLS BOOKED FOR 1700 HOURS VIA [facility]
--- NOTE | 2023-03-23 11:40 | PM.DS ---
DS: Providers Provider Date of Service: 03/23/23 Date of admission: 03/17/23 05:10 Primary care physician: Chester Garcia MD Consults: 03/17/23 05:21 Consult to Nephrology Routine Consulting Provider: Ramírez Headley Reason for consultation: ALETHEA Has provider been notified: No 03/17/23 10:36 Consult to Infectious Diseases Routine Consulting Provider: [facility] Infectious Disease Reason for consultation: sepsis/uti/suprpubic cath; h/o resistant organisms Has provider been notified: No 03/17/23 14:29 Consult to Urology Routine Consulting Provider: Jarred Higgins Reason for consultation: suprpubc catheter ?change Has provider been notified: No 03/19/23 09:31 Consult to Urology Routine Consulting Provider: Jordan Meeks Reason for consultation: ALETHEA, Ada Has provider been notified: No 03/19/23 09:34 Consult for Sitter Routine Reason for consultation: getting out of bed, pulling tubes DS: Diagnosis Discharge Diagnosis (1) Severe sepsis: Status: Acute DS: Summary Hospital Course Hospital Course: Admission HPI [facility] Complaint: Confusion and weakness x 1 day Patient is an 82 year old white male with past medical history of dementia, cardiomyopathy, coronary artery disease s/p NSTEMI, hyperlipidemia, hypertension, pulmonary embolism, recurrent UTI's with Pseudomonas/VRE, non-malignant penile mass s/p SPT placement, s/p G-tube placement who was sent to the emergency department for evaluation of increasing weakness and confusion. He lives at home with his elderly and gets around in a wheelchair. At baseline, he is able to stand on his own and pivot but was not able to do that today. He was also noted to be oriented only to self which is not his usual baseline. He has had the suprapubic tube (SPT) for at least 6 months ago and it is uncertain what it was last changed (last Urology note was on 02/19/2022). On arrival to the emergency room, he was noted to be febrile with a temperature of 104.9 F and tachycardic at 130 bpm. Lab work revealed acute renal failure with a creatinine of 4.11 mg/dl and an elevated serum lactic acid at 2.4 mmol/L. He received IV fluids with improvement in his lactic acid (now at 1.4 mmol/L) and urinalysis revealed 3+ large blood, 3+ leukocyte esterase, > 50 WBC/HPF and 4+ urine bacteria. Of note, he has in the past been diagnosed with Pseudomonas aeruginosa UTI and VRE. An assessment of severe sepsis secondary to UTI was made and he was started on Cefepime and admission requested. When I saw him, he was still confused and appeared to be hallucinating thinking that the tubings were snakes. Hospital course: The patient presented to the hospital with weakness and confusion due to metabolic encephalopathy and was found to have sepsis due to a urinary tract infection (UTI) and acute kidney injury. Initially, sepsis due to UTI was treated with cefepime, which was later changed to ceftriaxone upon culture results showing sensitivity of Proteus Mirabilis to ceftriaxone. Infectious disease specialists recommended a 14-day course of antibiotics, which will be switched to oral Ceftin 500 mg twice daily for an additional 7 days. The acute kidney injury was attributed to acute tubular necrosis (ATN) from sepsis. A CT scan of the abdomen and pelvis revealed an old left hydro, and urology recommended antibiotic therapy without intervention. The management was guided by a marketing support specialist, involving brief treatment with IV fluids. Creatinine levels peaked at 4.58 and have gradually decreased to 2.7 as of March 23, and it is expected to return to baseline. The metabolic encephalopathy due to UTI has resolved, and the patient has returned to their baseline dementia state. A physical therapist evaluated the patient and recommended either short-term rehabilitation or 24-hour care. The patient's prefers to take him home, so he will be discharged home with [facility] support. Follow-up appointments with the primary care physician (PCP) and marketing support specialist will be scheduled for outpatient care. Time Attestation Discharge coordination time: Greater than 30 minutes Quality: Safe Use of Opioids Does Pt have an Active Cancer Diagnosis on the Problem List?: No Quality: Stroke Does the patient have a stroke diagnosis?: No Physical Exam Vital Signs: Vital Signs: Last Vital Signs Temp 98.0 F 03/23/23 07:52 Pulse 75 03/23/23 07:52 Resp 16 03/23/23 07:52 BP 133/73 03/23/23 07:52 Pulse Ox 95 03/23/23 07:52 O2 Del Method Room Air 03/23/23 07:52 BMI result Body Mass Index 28.9 Const: Other: General: baseline dementia Resp: CTA bilateral CVS: S1,S2,RRR GI: +BS, NT, no distention Skin: No rash Neuro: motor grossly intact Psych: appropriate affect DS: Data Data Completed and Pending Completed studies during hospitalization [Text1]: Labs on day of discharge: Laboratory Results - last 24 hr 03/23/23 05:31 Hold Purple Top SEE NOTE Sodium 143 Potassium 3.4 Chloride 111 H Carbon Dioxide 24 Anion Gap 11 L BUN 39 H Creatinine 2.70 H Estim Creat Clear Calc 21.1 Estimated GFR 23 Random Glucose 112 Calcium 11.0 H Preliminary micro results at discharge 03/19/23 12:14 Blood Culture - Preliminary Blood - Venous No growth after 48 hours. 03/19/23 12:14 Blood Culture - Preliminary Blood - Venous No growth after 48 hours. Discharge Plan Discharge Anticipated Discharge Date/Time: 03/23/23 11:36 Patient Disposition: Home Health Service Discharge Diagnosis: Metabolic encephalopathy, UTI Referrals: [facility] [Outside] Chester Garcia MD [Primary Care Provider] - 1 Week Ramírez Headley MD [Physician] - 1 Week Discharge Medications: New cefuroxime axetil 500 mg tablet 500 mg PO BID 7 Days Qty: 14 0RF Continued aspirin 81 mg tablet,delayed release (DR/EC) 81 mg PO DAILY ascorbic acid (vitamin C) 1,000 mg tablet 1,000 mg PO DAILY methenamine hippurate 1 gram tablet 1 g feeding tube daily Discharge Orders: Discharge Order (Routine); Ordered 03/23/23 Ordered By: Toni Garcia Diet: Advance to usual diet Activity on Discharge: As tolerated Stand Alone Forms: Patient Portal Discharge page Other Ambulatory Orders: Basic Metabolic Panel Fasting (Routine) Timeframe: [id number] Facility: [facility] - Location: Laboratory Ordered By: Toni Garica Care Plan Goals: full recovery from encephalopathy, UTI and sepsis Health Concerns: Sepsis, UTI and encephalopathy Plan of Treatment: take Cefuroxime 500 mg twice daily for 7 more days follow up with your Doctor antonia week Assessment: See above
--- NOTE | 2023-03-23 12:03 | W.MHC.F2F ---
Service Date Service Date: 03/23/23 Encounter Date of encounter: 03/23/23 Reasons for Services Signs and symptoms assessed: weakness from hospitalization, sepsis, and uti Reason for long-term: medication management and teach disease management Reason for physical therapy: home safety and mobility, therapeutic exercises and energy conservation Homebound: Leaving the home is medically contraindicated at this time without the asist of a device and/or another person due th the listed conditions above and below. Reason homebound: unsteady gait / fall risk, fall risk related to blood pressure changes and weakness related to hospital stay Homebound supporting statement: homebound due to weakness, sepsis, encephalopathy not able to drive and therefore needs the assistance of another person Certification: Based on the above findings, I certify that this patient is confined to the home and needs intermittent long-term care, physical therapy and/or speech therapy, or continues to need occupational therapy. The patient is under my care, and I have initiated the establishment of the plan of care. The patient will be followed by a physician who will periodically review the plan of care. Time Spent With Patient Time: Total time managing care of this patient today ____ minutes.
[2023-03-23 15:20] VITALS: BP 147/71; PULSE 75; RESP 17; TEMP 36.7; O2SAT 95
== END 2023-03-23 16:50 | disposition home health service (06) | DRG 698 ==
LOC: HO.ED 03-17 02:59 → HO.EDOVER 03-17 05:22 → HO.IMC 03-17 12:13 → HO.S3 03-19 17:26
PROVIDERS: Physician Assistant Medical; Admitting Provider Internal Medicine; Emergency Provider Emergency Medicine Emergency Medical Services; PCP Internal Medicine; Visit Provider Internal Medicine
DX: T83.518A Infection and inflammatory reaction due to other urinary catheter, initial encounter (principal); A41.9 Sepsis, unspecified organism; G92.8 Other toxic encephalopathy; R65.20 Severe sepsis without septic shock; N17.0 Acute kidney failure with tubular necrosis; J18.9 Pneumonia, unspecified organism; N13.6 Pyonephrosis; F03.911 Unspecified dementia, unspecified severity, with agitation; E83.52 Hypercalcemia; B96.4 Proteus (mirabilis) (morganii) as the cause of diseases classified elsewhere; L29.9 Pruritus, unspecified; Z66 Do not resuscitate; N31.9 Neuromuscular dysfunction of bladder, unspecified; Z87.440 Personal history of urinary (tract) infections; Z93.1 Gastrostomy status; Z20.822 Contact with and (suspected) exposure to COVID-19; Z79.82 Long term (current) use of aspirin; Z79.899 Other long term (current) drug therapy
CPT/HCPCS: 0241U; 36415; 71045; 76775; 80048; 80076; 81001; 81003; 82947; 83605; 83690; 83735; 85025; 85027; 87040; 87077; 87086; 87186; 87205; 93005; 93975; 97162; 99285; J0692; J0696; J1644; J3370; J7120

== ENCOUNTER → 2023-03-16 | Outpatient (BNV) | payer MEDICARE, SELFPAY | PROVIDERS: Admitting Provider Internal Medicine; Emergency Provider Emergency Medicine Emergency Medical Services; Visit Provider Internal Medicine | DX: R00.0 Tachycardia, unspecified (principal); R94.31 Abnormal electrocardiogram [ECG] [EKG] | CPT/HCPCS: 93010 ==

== ENCOUNTER → 2023-03-17 05:10 | Outpatient (BNV) | payer MEDICARE, SELFPAY | PROVIDERS: Admitting Provider Internal Medicine; Emergency Provider Emergency Medicine Emergency Medical Services; Visit Provider Internal Medicine | DX: A41.9 Sepsis, unspecified organism (principal); R65.20 Severe sepsis without septic shock; N17.0 Acute kidney failure with tubular necrosis; N39.0 Urinary tract infection, site not specified | CPT/HCPCS: 99223; 99232; 99239; 99499; G0180 ==

== ENCOUNTER → 2023-03-17 05:10 | Outpatient (BNV) | payer MEDICARE, SELFPAY | PROVIDERS: Admitting Provider Internal Medicine; Emergency Provider Emergency Medicine Emergency Medical Services; PCP Internal Medicine; Visit Provider Urology | DX: N31.9 Neuromuscular dysfunction of bladder, unspecified (principal); N39.0 Urinary tract infection, site not specified; Z93.59 Other cystostomy status | CPT/HCPCS: 99222 ==

== ENCOUNTER → 2023-03-17 05:10 | Outpatient (BNV) | payer MEDICARE, SELFPAY | PROVIDERS: Admitting Provider Internal Medicine; Emergency Provider Emergency Medicine Emergency Medical Services; Visit Provider Internal Medicine | DX: A41.9 Sepsis, unspecified organism (principal); R65.20 Severe sepsis without septic shock; R50.9 Fever, unspecified | CPT/HCPCS: 99222 ==

== ENCOUNTER → 2023-03-17 05:10 | Outpatient (BNV) | payer MEDICARE, SELFPAY | PROVIDERS: Admitting Provider Internal Medicine; Emergency Provider Emergency Medicine Emergency Medical Services; PCP Internal Medicine; Visit Provider Internal Medicine Hypertension Specialist | DX: N17.9 Acute kidney failure, unspecified (principal) | CPT/HCPCS: 99223; 99231; 99232; 99499 ==

== ENCOUNTER 2023-04-12 12:56 | Inpatient (IN) | payer MEDICARE, MEDICAID, SELFPAY ==
--- NOTE | ~2023-04-12 | XR_ITS ---
EXAMINATION: XR CHEST CLINICAL INFORMATION: Cough, weakness and vomiting vomiting. Rule out pneumonia. COMPARISON: None available. TECHNIQUE: Frontal view of the chest was obtained. FINDINGS: The lungs are expanded with no acute pneumonic process seen. There is a small right loculated pleural effusion and/or scarring. Heart size and pulmonary vascularity is normal. There is mild spondylosis of dorsal spine. No aggressive lytic or sclerotic process seen. XR/XR chest 1V IMPRESSION: Patchy opacity right lung base likely infiltrate/atelectasis with small right pleural effusion or thickening.
[2023-04-12 13:06] VITALS: BP 103/58; BP 106/70; PULSE 105; PULSE 108; RESP 18; TEMP 36.6; O2SAT 95; BMI 22.2
--- NOTE | 2023-04-12 13:15 | ED.GENADULT ---
HPI - General Adult General Chief complaint: General Medical Stated complaint: WEAKNESS, VOMITING Time Seen by Provider: 04/12/23 13:14 Mode of arrival: EMS History of Present Illness HPI narrative: 82 year old white male with past medical history of dementia, cardiomyopathy, coronary artery disease s/p NSTEMI, hyperlipidemia, hypertension, pulmonary embolism, recurrent UTI's with Pseudomonas/VRE, non-malignant penile mass s/p SPT placement, s/p G-tube placement who brought to emergency department by ambulance for evaluation of weakness, not eating, not drinking, confusion with visual hallucinations cough x2 days and vomiting. The information comes from the patient's caregiver (Shelby Thurman) who was lid with the patient for many years. Patient was hospitalized here from 03/16/2023 until 03/23/2022 for sepsis secondary to urinary tract infection caused by Proteus Mirabilis which was sensitive to ceftriaxone and patient completed 7 more days of Ceftin at home. According to his caregiver since being discharged home the patient has been very weak in his mainly been in bed, usually he can get up and walk with a walker and use a wheelchair and move himself around with a wheelchair. She states he has had very little food and fluid to eat since coming home and the last 2 days he has developed a productive sounding cough, vomiting x1 yesterday and 4 times today, weakness and increased confusion with visual hallucinations-he thinks that the window is a television in his seeing things that are not there. His caregiver was concerned about these new symptoms so she called an ambulance and the patient was brought to emergency department for evaluation. At the time my evaluation the patient is oriented to person only, lacks insight as to why he is here, he is awake but does appear weak, there is a strong ketotic odor to his breath. He does follows commands. Related Data Home Medications Medication Instructions Recorded Confirmed ascorbic acid (vitamin C) 1,000 mg 1,000 mg PO DAILY 03/17/23 03/17/23 tablet aspirin 81 mg tablet,delayed 81 mg PO DAILY 03/17/23 03/17/23 release methenamine hippurate 1 gram tablet 1 g feeding tube daily 03/17/23 03/17/23 Previous Rx's Medication Instructions Recorded cefuroxime axetil 500 mg tablet 500 mg PO BID 7 days #14 tabs 03/23/23 Allergies Allergy/AdvReac Type Severity Reaction Status Date / Time No Known Allergies Allergy Verified 04/12/23 13:06 Review of Systems Review of Systems: Yes Unobtainable due to mental status [facility] Past Medical History [facility] Narrative: Social history: He lives with his pediatric oncologist who is here in the emergency department with him. He does not drink alcohol smoke cigarettes or use drugs. 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 Mother No problems noted. Social History Social History Household Members: Spouse Housing: House Do you presently have visiting nurse or other home services: Yes Alcohol intake: never Comment: 1:1 sitter Patient Tobacco Use Status: Never used Tobacco Smoked in Last 30 Days: No e-Cigarette/Vaping Use: Never Used Second Hand Smoke Exposure: No Use of substances other than those prescribed or required for medical reasons: No Advance Directives: Yes Advance Directives on File: Yes Advance Directives Date on File: 09/21/21 service: No Current occupational status: unemployed and retired Physical Exam ED Vital Signs: Vital Signs - 24 hr 04/12/23 13:06 04/12/23 14:05 04/12/23 16:04 Temperature 97.8 F 97.8 F Pulse Rate 105 H 112 H 93 Respiratory Rate 18 20 16 Blood Pressure 106/70 98/62 107/59 L Pulse Oximetry 95 97 94 Oxygen Delivery Method Room Air Room Air Room Air 04/12/23 16:37 04/12/23 17:49 Temperature 97.4 F 97.3 F Pulse Rate 90 86 Respiratory Rate 16 16 Blood Pressure 102/56 L 90/53 L Pulse Oximetry 97 97 Oxygen Delivery Method Room Air Room Air BMI result Body Mass Index 22.2 Vital signs revealed an elevated heart rate of 105. Exam: General: Awake, appears weak, oriented to person only, strong ketotic odor to his breath Head: Normocephalic, atraumatic EENT: PERRL, Lids normal, sclera normal, conjunctiva normal, nose normal , ears normal, throat without erythema or exudates Neck: Supple, no adenopathy Lung: breath sounds symmetric, no wheezing, rales or rhonchi Chest: symmetric movement, nontender Heart: Tachycardia with normal rhythm, normal S1, S2 no murmurs or rubs Abdomen: soft, mild diffuse tenderness with moderate suprapubic tenderness, nondistended, normal bowel sounds. Patient has a suprapubic urinary catheter in place, urine is cloudy appearing Back: no vertebral tenderness, no CVAT Extremities: no deformities, moves all extremities symmetrically Neuro: Awake, oriented to person only. Very soft, slow speech, cranial nerves intact, moves all extremities symmetrically Medications Administered Discontinued Medications Generic Name Dose Route Start Last Admin Trade Name Freq PRN Reason Stop Dose Admin Sodium Chloride 2,103 mls @ 2,103 mls/hr 04/12/23 13:29 04/12/23 16:03 Ns 30 ml/kg infuse over 1 hr (2103 ml) 04/12/23 14:28 Infused IV Infusion .Q1H STA Cefepime HCl 2 gm/ Sodium 50 mls @ 100 mls/hr 04/12/23 13:35 04/12/23 16:42 Chloride IV 04/12/23 14:04 Infused ONCE ONE Infusion Medical Decision Making Medical Decision Making [facility] Narrative: 82 year old white male with past medical history of dementia, cardiomyopathy, coronary artery disease s/p NSTEMI, hyperlipidemia, hypertension, pulmonary embolism, recurrent UTI's with Pseudomonas/VRE, non-malignant penile mass s/p SPT placement, s/p G-tube placement who brought to emergency department by ambulance for evaluation of weakness, not eating, not drinking, confusion with visual hallucinations cough x2 days and vomiting. Patient was hospitalized here from 03/16/2023 until 03/23/2022 for sepsis secondary to urinary tract infection caused by Proteus Mirabilis which was sensitive to ceftriaxone and patient completed 7 more days of Ceftin at home. Patient has been weak since discharge from the hospital and has spent most of the time in bed which is a change from his usual ability to walk with a walker use a wheelchair. For the past 2 days he has had a productive cough and vomiting. He has also had visual hallucinations which are new. Vital signs did reveal an elevated heart rate of 105 otherwise there were unremarkable. Patient has very dry mucous membranes with strong ketotic odor to his breath. He has mild diffuse abdominal tenderness with increased suprapubic tenderness. He has a suprapubic catheter which has very cloudy appearing urine. Following evaluation was ordered: CBC, CMP, lactic acid, lipase, beta hydroxybutyrate, PTT, troponin, VBG COVID-19, influenza, blood cultures x2, EKG, chest x-ray x1 view, cardiac and O2 saturation monitoring, IV insert. Patient was treated with the following: Normal saline bolus 30 cc/kilogram (2103 mL) cefepime 2 g IV. Differential diagnosis includes but is not limited to pneumonia, urinary tract infection, diabetic ketoacidosis, starvation ketoacidosis, electrolyte abnormalities, anemia, myocardial infarction, myocardial ischemia, viral infection, COVID-19, influenza, 17:36 My interpretation patient's laboratory evaluation is as follows: WBC was normal 5500. Anemia with an H&H of 11.2 and 34.4. Elevated chloride 110. Low bicarb 16. Elevated BUN and creatinine 46 and 2.63-this is consistent with his baseline chronic kidney disease. Anion gap was normal. Venous pH was low 7.30 with a normal CO2 of 36. Beta hydroxybutyrate was elevated 2.78. Lactic acid was normal 1.1. Laboratory evaluation is consistent with starvation ketosis. Patient's urinalysis came from the patient's suprapubic tube in revealed positive protein, positive ketones, positive blood, positive leukocyte esterase. Microscopic revealed 3-5 RBCs, greater than 50 WBCs, 11-20 squamous cells and 4+ bacteria. At this time, believe that the patient's altered mental status is most likely secondary to urinary tract infection similar to his previous admission. Patient's presentation was discussed with the covering hospitalist, Dr. Connell Admission/Observation Consideration of admission/observation: Escalation of care including admission/observation considered Consult Healthcare Provider Management of the patient was discussed with: Hospitalist Lab Data [facility] Lab Attestation statement: I reviewed the patient's lab results. 04/12/23 16:33 04/12/23 15:59 Labs: Lab Results 04/12/23 04/12/23 04/12/23 Range/Units 13:15 14:19 14:20 WBC (4.8-10.8) X10*3/uL RBC (4.60-5.80) X10*6/uL Hgb (14.0-18.0) g/dl Hct (42.0-52.0) % MCV (80.0-98.0) fL MCH (27.0-33.0) pg MCHC (31.0-36.0) g/dl RDW (11.0-16.0) % Plt Count (160-400) X10*3/uL MPV (9.4-12.4) fL Immature Gran % (Auto) (0.0-0.4) % Neut % (Auto) (45-73) % Lymph % (Auto) (20-40) % [place] % (Auto) (2-11) % Eos % (Auto) (0-4) % Baso % (Auto) (0-2) % Lymph # (Auto) (1.2-4.9) X10*3/uL [place] # (Auto) (0.1-1.2) X10*3/uL Eos # (Auto) (0.0-0.4) X10*3/uL Baso # (Auto) (0.0-0.2) X10*3/uL Abs Immat Gran (auto) (0.00-0.03) X10*3/uL Absolute Neuts (auto) (2.0-8.3) x10*3/uL Absolute Nucleated RBC (0.0-0.012) X10*3/uL Nucleated RBC % (auto) (0.0-0.2) /100WBC APTT (26.0-36.4) SEC VBG pH (7.32-7.43) VBG pCO2 mmHg VBG pO2 mmHg VBG HCO3 (22-26) mmol/L VBG O2 Saturation % VBG Base Excess mmol/L Sodium (135-145) mmol/L Potassium (3.3-5.1) mmol/L Chloride (96-108) mmol/L Carbon Dioxide (22-29) mmol/L Anion Gap (12-20) BUN (9-16) mg/dL Creatinine (0.5-1.4) mg/dL Estim Creat Clear Calc Estimated GFR Random Glucose (60-115) mg/dL Lactic Acid (0.5-2.0) mmol/L Calcium (8.4-10.2) mg/dL Total Bilirubin (0.0-1.0) mg/dL AST (5-37) U/L ALT (0-40) U/L Alkaline Phosphatase (39-117) U/L Troponin I High Sens (<3.5-35.0) ng/L Total Protein (6.5-8.0) g/dL Albumin (3.5-5.0) g/dL Lipase (8-78) U/L Beta-Hydroxybutyrate (0.02-0.27) mmol/L Urine Color Yellow Urine Appearance Turbid Urine pH 5.5 (5.0-9.0) Ur Specific [place] 1.020 (1.005-1.025) Urine Protein 100 (2+) H (Neg-Trace) mg/dL Urine Glucose (UA) Negative (Negative) mg/dL Urine Ketones 15 (Negative) mg/dL Urine Blood Moderate (2+) H (Negative) Urine Nitrite Negative (Negative) Ur Leukocyte Esterase Large (3+) H (Negative) Urine RBC 3-5 H (0-2) /HPF Urine WBC >50 H (0-5) /HPF Ur Squamous Epith Cells 11-20 (0-2) /HPF Urine Bacteria 4+ (None Seen) Hyaline Casts 3-5 (0-2) /LPF Granular Casts Present COVID-19 (CRISTIAN) Invalid (Negative) COVID-19 Clin Com See Note Influenza Type A (JUNG) Negative (Negative) Influenza Type A (PCR) NEGATIVE (Negative) Influenza Type B (JUNG) Negative (Negative) Influenza Type B (PCR) NEGATIVE (Negative) Influenza A & B Note See Note RSV RNA Qual (PCR) NEGATIVE (Negative) SARS-CoV-2 RNA (RT-PCR) NEGATIVE (Negative) 04/12/23 04/12/23 04/12/23 Range/Units 15:59 16:33 16:34 WBC 5.5 (4.8-10.8) X10*3/uL RBC 3.95 L D (4.60-5.80) X10*6/uL Hgb 11.2 L D (14.0-18.0) g/dl Hct 34.4 L D (42.0-52.0) % MCV 87.1 (80.0-98.0) fL MCH 28.4 (27.0-33.0) pg MCHC 32.6 (31.0-36.0) g/dl RDW 16.3 H (11.0-16.0) % Plt Count 210 D (160-400) X10*3/uL MPV 8.9 L (9.4-12.4) fL Immature Gran % (Auto) 0.9 H (0.0-0.4) % Neut % (Auto) 71.8 (45-73) % Lymph % (Auto) 11.5 L (20-40) % [place] % (Auto) 14.4 H (2-11) % Eos % (Auto) 0.9 (0-4) % Baso % (Auto) 0.5 (0-2) % Lymph # (Auto) 0.6 L (1.2-4.9) X10*3/uL [place] # (Auto) 0.8 (0.1-1.2) X10*3/uL Eos # (Auto) 0.1 (0.0-0.4) X10*3/uL Baso # (Auto) 0.0 (0.0-0.2) X10*3/uL Abs Immat Gran (auto) 0.05 H (0.00-0.03) X10*3/uL Absolute Neuts (auto) 4.0 (2.0-8.3) x10*3/uL Absolute Nucleated RBC 0.000 (0.0-0.012) X10*3/uL Nucleated RBC % (auto) 0.0 (0.0-0.2) /100WBC APTT 24.8 L (26.0-36.4) SEC VBG pH 7.30 L (7.32-7.43) VBG pCO2 36 mmHg VBG pO2 53 mmHg VBG HCO3 18 L (22-26) mmol/L VBG O2 Saturation 79.0 % VBG Base Excess -7.1 mmol/L Sodium 137 (135-145) mmol/L Potassium 4.1 (3.3-5.1) mmol/L Chloride 110 H (96-108) mmol/L Carbon Dioxide 16 L (22-29) mmol/L Anion Gap 15 (12-20) BUN 47 H (9-16) mg/dL Creatinine 2.63 H (0.5-1.4) mg/dL Estim Creat Clear Calc 21.4 Estimated GFR 23 Random Glucose 100 (60-115) mg/dL Lactic Acid 1.1 (0.5-2.0) mmol/L Calcium 12.3 H D (8.4-10.2) mg/dL Total Bilirubin 1.1 H (0.0-1.0) mg/dL AST 11 (5-37) U/L ALT < 5 (0-40) U/L Alkaline Phosphatase 55 (39-117) U/L Troponin I High Sens 22.6 (<3.5-35.0) ng/L Total Protein 6.5 (6.5-8.0) g/dL Albumin 2.8 L (3.5-5.0) g/dL Lipase 21 (8-78) U/L Beta-Hydroxybutyrate 2.78 H (0.02-0.27) mmol/L Urine Color Urine Appearance Urine pH (5.0-9.0) Ur Specific [place]onson (1.005-1.025) Urine Protein (Neg-Trace) mg/dL Urine Glucose (UA) (Negative) mg/dL Urine Ketones (Negative) mg/dL Urine Blood (Negative) Urine Nitrite (Negative) Ur Leukocyte Esterase (Negative) Urine RBC (0-2) /HPF Urine WBC (0-5) /HPF Ur Squamous Epith Cells (0-2) /HPF Urine Bacteria (None Seen) Hyaline Casts (0-2) /LPF Granular Casts COVID-19 (CRISTIAN) (Negative) COVID-19 Clin Com Influenza Type A (JUNG) (Negative) Influenza Type A (PCR) (Negative) Influenza Type B (JUNG) (Negative) Influenza Type B (PCR) (Negative) Influenza A & B Note RSV RNA Qual (PCR) (Negative) SARS-CoV-2 RNA (RT-PCR) (Negative) Independent Interpretation I performed an independent interpretation of an: EKG and Plain X-Ray Interpretation: My independent interpretation patient's Chest x-ray, one view interpreted by me as follows: patchy infiltrate right lower lobe My independent interpretation patient's 12 EKG is as follows: Sinus tachycardia with rate of 110, normal NE interval, prolonged QRS of 124 milliseconds, normal QTC interval, left bundle-branch block, no significant T-wave abnormalities, no PACs, no PVCs, no evidence for myocardial infarction or myocardial ischemia. Compared to EKG dated 03/17/2023 no significant change Radiology Impression Discussion of test interpretation with radiology: I have reviewed the radiologist's reading. Radiologist Impression: XR chest 1V IMPRESSION: Patchy opacity right lung base likely infiltrate/atelectasis with small right pleural effusion or thickening. Dictated By: Rubén Sharma MD Independent Historian Clinical information obtained from an independent historian. History obtained from or confirmed by: Other (Caregiver) External Record Review External record reviewed: Inpatient record Chronic Conditions Patient?s care impacted by: Other (Suprapubic urinary catheter) Critical Care Time Critical Care Time Critical Care Time: Yes Total Critical Care Time: 45 Attestation: Critical Care: The patient was critically ill with a high probability of imminent or life threatening deterioration. I spent greater than 30 minutes of discontinuous time evaluating the patient,delivering critical care at the bedside, discussing and evaluating pertinent data with consultants. Critical care time does not include time spent performing separately billable procedures or teaching. Total time spent performing critical care was 45 minutes. Discharge Plan Discharge Clinical Impression: Acute alteration in mental status, Ketosis, Acute dehydration, Urinary tract infection Pneumonia Qualifiers: Laterality: right Lung location: lower lobe of lung Patient Disposition: Admitted As Inpatient
[2023-04-12 13:22] LABS: Appearance Urine Turbid; Color Urine Yellow; Glucose Urine UA Negative (Negative); Leukocyte Esterase Urine Large (3+) (Negative); Nitrite Urine Negative (Negative); PH 5.5 (5.0-9.0); UMIC TRIGGER UACC YES; Urine Blood Moderate (2+) (Negative); Urine Ketones 15 mg/dL (Negative); Urine Protein 100 (2+) mg/dL (Neg-Trace)
[2023-04-12 13:37] LABS: Bacteria Urine 4+ (None Seen); Granular Casts Urine Present; UACC Culture Trigger YES; WBC Urine >50 /HPF (0-5)
--- NOTE | 2023-04-12 13:44 | ECG_ITS ---
Test Reason : Dyspnea Blood Pressure : / mmHG Vent. Rate : 110 BPM Atrial Rate : 110 BPM P-R Int : 170 ms QRS Dur : 124 ms QT Int : 338 ms P-R-T Axes : 072 -56 104 degrees QTc Int : 457 ms Sinus tachycardia Left bundle branch block Abnormal ECG When compared with ECG of 17-MAR-2023 00:43, No significant change was found Referred By: Jad Truong Electronically Signed By:Osvaldo Lim
[2023-04-12] MEDS: SODIUM CHLORIDE 2103 ML IV (14:04)
[2023-04-12 14:05] VITALS: BP 98/62; PULSE 112; RESP 20; O2SAT 97
--- NOTE | 2023-04-12 14:05 | PC.NURSE ---
difficult stick provider placed sepsis protocol fluids/abx, pt difficult stick- multiple attempts to get IVs were unsuccessful, additional nursing staff was able to get 1 site, labs were unable to be drawn off IV site, techs attempting to draw labs with butterfly and have been so far unsuccessful at obtaining labs we may need to call phlebotomy to obtain labs, pt will ahve IVF running until labs are obtained, pt has cath patient/draining cloudy yellow urine with sediment, library monitor sinus tach, pt now hypotensive on monitor, call adame within reach, will continue to monitor.
[2023-04-12 14:49] LABS: IDNOW Serial# 9DB6401D; Influenza A Negative (Negative); Influenza B2 Negative (Negative)
[2023-04-12 15:10] LABS: COVID-19 Test Invalid (Negative); IDNOW Serial# 08D9AD1C
[2023-04-12 15:15] LABS: Influenza A PCR NEGATIVE (Negative); Influenza B PCR NEGATIVE (Negative); Resp Syncy Virus RNA Qual PCR NEGATIVE (Negative); SARS COV2 PCR INHOUSE NEGATIVE (Negative)
[2023-04-12 16:04] VITALS: BP 107/59; PULSE 93; RESP 16; TEMP 36.6; O2SAT 94
[2023-04-12] MEDS: cefEPime HCl 2 GM in 0.9 % Sodium Chloride 50 ML IV (16:12)
[2023-04-12 16:18] LABS: Lactic Acid 1.1 mmol/L (0.5-2.0)
[2023-04-12 16:23] LABS: Alanine Aminotransferase < 5 U/L (0-40); Albumin Level 2.8 g/dL (3.5-5.0); Alkaline Phosphatase 55 U/L (39-117); Anion Gap 15 (12-20); Aspartate Amino Transferase 11 U/L (5-37); Bilirubin Total 1.1 mg/dL (0.0-1.0); Blood Urea Nitrogen 47 mg/dL (9-16); Calcium 12.3 mg/dL (8.4-10.2); Carbon Dioxide 16 mmol/L (22-29); Chloride 110 mmol/L (96-108); Creatinine Clr Calc Pharmacy 21.4; Estimated Glomerular Filt Rate 23; Glucose Random 100 mg/dL (60-115); Lipase 21 U/L (8-78); Potassium 4.1 mmol/L (3.3-5.1); Sodium 137 mmol/L (135-145); Total Protein 6.5 g/dL (6.5-8.0)
--- NOTE | 2023-04-12 16:25 | PC.NURSE ---
this patient is an extremely difficult stick and the lab called stating the labs all needed to be redrawn, phlebotomy was called to draw the labs- while awaiting for phlebotomy- Dr. Truong attempted an EJ x4, multiple techs attempted sticks, Dr. Savage attempted US guided x3 and he was finally able to get a EJ, phlebotomy never came to the floor.. Upon drawing labs off the EJ and sending them, the lab called and stated the patient needed a few labs as a redraw, this nurse again requested phlebotomy to draw the labs. Additionally a tech is attempting another straight stick as phlebotomy has not arrived to do this redraw. PT antibiotics have been hung since the 2nd set of BC were obtained with the EJ draw. IVF have completed, pt vitals are currently stable, property assessment monitor intact, call adame within reach, will continue to monitor.
[2023-04-12 16:30] LABS: Troponin-I High Sensitivity 22.6 ng/L (<3.5-35.0)
[2023-04-12 16:34] LABS: Beta-Hydroxybutyrate 2.78 mmol/L (0.02-0.27)
[2023-04-12 16:37] VITALS: BP 102/56; PULSE 90; RESP 16; TEMP 36.3; O2SAT 97
[2023-04-12 16:39] LABS: Basophils Percent Auto 0.5 % (0-2); Eosinophils Absolute Auto 0.1 X10*3/uL (0.0-0.4); Eosinophils Percent Auto 0.9 % (0-4); Hematocrit 34.4 % (42.0-52.0); Hemoglobin 11.2 g/dl (14.0-18.0); Imm Gran Abs Auto 0.05 X10*3/uL (0.00-0.03); Imm Gran Pct Auto 0.9 % (0.0-0.4); Lymphocytes Absolute Auto 0.6 X10*3/uL (1.2-4.9); Lymphocytes Percent Auto 11.5 % (20-40); Mean Corpuscular HGB Conc 32.6 g/dl (31.0-36.0); Mean Corpuscular Hemoglobin 28.4 pg (27.0-33.0); Mean Corpuscular Volume 87.1 fL (80.0-98.0); Mean Platelet Volume 8.9 fL (9.4-12.4); Monocytes Absolute Auto 0.8 X10*3/uL (0.1-1.2); Monocytes Percent Auto 14.4 % (2-11); Neutrophils Percent Auto 71.8 % (45-73); Platelet Count 210 X10*3/uL (160-400); Red Blood Count 3.95 X10*6/uL (4.60-5.80); Red Cell Distribution Width 16.3 % (11.0-16.0); White Blood Count 5.5 X10*3/uL (4.8-10.8)
[2023-04-12 16:41] LABS: MANUAL DIFF FLAG NO
[2023-04-12 16:46] LABS: Partial Thromboplastin Time 24.8 SEC (26.0-36.4)
[2023-04-12 16:49] LABS: Venous Blood Gas Refer to POC result
[2023-04-12 16:50] LABS: VBG Base Excess -7.1 mmol/L; VBG HCO3 18 mmol/L (22-26); VBG pCO2 36 mmHg; VBG pO2 53 mmHg
[2023-04-12 17:49] VITALS: BP 90/53; PULSE 86; RESP 16; TEMP 36.3; O2SAT 97
--- NOTE | 2023-04-12 17:51 | PC.NURSE ---
patient awake/alert to person, supervisor cartography nsr 80s, pt noted to be hypotensive, cath patient/draining, will continue to monitor
--- NOTE | 2023-04-12 19:01 | PHA.MEDREC ---
Pharmacy Consult ? Medication Reconciliation Pharmacy has completed the medication reconciliation. Confirmed patients medications with caregiver. Jessica Mitchell CPhT
--- NOTE | 2023-04-12 19:33 | PM.IMHP ---
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 intake of solids and liquids, cough, vomiting, and confusion with visual hallucinations. ?Patient is currently alert and oriented to self only and incapable of providing meaningful were accurate HPI, which is instead obtained from chart and provider review. Patient lives at home with his elderly and was recently admitted to the hospital on 03/22/2023-03/23/2023 and treated for weakness and confusion due to metabolic encephalopathy in the setting of UTI with sepsis and ALETHEA. Urine culture grew Proteus mirabilis sensitive to ceftriaxone. PT evaluation prior to discharge recommended either short-term rehab or 24 hour care. Patient's preferred to take him home, so he was discharged with VNA support. Patient's caregiver states that since discharge patient has been increasingly weak and mainly staying in bed, when prior he would be able to walk with a walker or use a wheelchair to move himself around. Caregiver also notes he has had very little food or fluid since discharge, especially in the last 3-4 days. Patient developed a productive sounding cough 2 days ago, and vomited both yesterday and today. Also reports that increased confusion with visual hallucinations, such as thinking the window is a television or seeing people and things that are not there. Pt has a history of confusion with UTIs/infections, but hallucinations are new. In the ED pt was was afebrile, but tachycardic up to 112, with soft BP as low as 90/53, satting at 97% on RA. Labs were significant for beta hydroxybutyrate of 2.78, albumin 2.8. No leukocytosis. Stable H&H of 11.2/34.4. BUN and creatinine elevated at 47 and 2.63, at baseline. UA positive for UTI with large amount of leukocyte esterase and >50 wbc's, bacteria 4+. Tested negative for influenza type a and B, COVID. Chest x-ray showed patchy opacity at right lung base likely infiltrate/atelectasis with small right pleural effusion or thickening. EKG demonstrated sinus tachycardia with LBBB with no evidence of ST elevations or depressions, no significant changes from previous EKG. Pt was treated with IVF and cefepime. Pt will be admitted to the hospital for acute metabolic encephalopathy in the setting of UTI and pneumonia. 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 Mother No problems noted. Surgical History History of surgery Social History Household Members: Spouse Housing: House Do you presently have visiting nurse or other home services: Yes Alcohol intake: never Comment: 1:1 sitter Patient Tobacco Use Status: Never used Tobacco Smoked in Last 30 Days: No e-Cigarette/Vaping Use: Never Used Second Hand Smoke Exposure: No Use of substances other than those prescribed or required for medical reasons: No Advance Directives: Yes Advance Directives on File: Yes Advance Directives Date on File: 09/21/21 service: No Current occupational status: unemployed and retired Meds Allergies Allergy/AdvReac Type Severity Reaction Status Date / Time No Known Allergies Allergy Verified 04/12/23 13:06 Home Medications Medication Instructions Recorded Confirmed Last Taken Type ascorbic acid (vitamin C) 1,000 mg 1,000 mg PO DAILY 03/17/23 04/12/23 Unknown History tablet aspirin 81 mg tablet,delayed 81 mg PO DAILY 03/17/23 04/12/23 Unknown History release methenamine hippurate 1 gram tablet 1 g feeding tube daily 03/17/23 04/12/23 Unknown History Physical Exam Vital Signs and Narrative: Vital Signs: Last Vital Signs Temp 97.3 F 04/12/23 17:49 Pulse 86 04/12/23 17:49 Resp 16 04/12/23 17:49 BP 90/53 L 04/12/23 17:49 Pulse Ox 97 04/12/23 17:49 O2 Del Method Room Air 04/12/23 17:49 BMI result Body Mass Index 22.2 Constitutional: Alert, frail-looking. Confused, sometimes speaking unintelligibly. In no acute distress. Mental Status: Oriented to person only, not to place or situation or fully to time. Eyes: Pupils are equal, round, and reactive to light. Ear, Nose, and Throat: Oropharynx clear, mucous membranes moist. Ears and nose without deformities. Trachea midline. Nose with healing superficial abrasion covering the tip. Respiratory: Clear to auscultation bilaterally. No wheezing, rales, or rhonchi. Cardiovascular: S1, S2 regular. No murmurs, rubs, or gallops. Gastrointestinal: Abdomen soft, non-tender, non-distended. Normal bowel sounds. Neurologic: Cranial nerves II-XII are grossly intact bilaterally. No focal neurological deficits. Moves all extremities spontaneously though with noted bilateral, symmetrical lower leg weakness. Skin: Warm, dry. Musculoskeletal: No cyanosis or clubbing. Extremities: No edema. Results Labs 04/12/23 16:33 04/12/23 15:59 Labs: Laboratory Results - last 24 hr 04/12/23 04/12/23 04/12/23 13:15 14:19 14:20 MCV MCH MCHC RDW Plt Count MPV Immature Gran % (Auto) Neut % (Auto) Lymph % (Auto) [place] % (Auto) Eos % (Auto) Baso % (Auto) Lymph # (Auto) [place] # (Auto) Eos # (Auto) Baso # (Auto) Abs Immat Gran (auto) Absolute Neuts (auto) Absolute Nucleated RBC Nucleated RBC % (auto) APTT VBG pH VBG pCO2 VBG pO2 VBG HCO3 VBG O2 Saturation VBG Base Excess Anion Gap Estim Creat Clear Calc Estimated GFR Random Glucose Lactic Acid Calcium Total Bilirubin AST ALT Alkaline Phosphatase Total Protein Albumin Lipase Beta-Hydroxybutyrate Urine Color Yellow Urine Appearance Turbid Urine pH 5.5 Ur Specific [place] 1.020 Urine Protein 100 (2+) H Urine Glucose (UA) Negative Urine Ketones 15 Urine Blood Moderate (2+) H Urine Nitrite Negative Ur Leukocyte Esterase Large (3+) H Urine RBC 3-5 H Urine WBC >50 H Ur Squamous Epith Cells 11-20 Urine Bacteria 4+ Hyaline Casts 3-5 Granular Casts Present COVID-19 (CRISTIAN) Invalid COVID-19 Clin Com See Note Influenza Type A (JUNG) Negative Influenza Type A (PCR) NEGATIVE Influenza Type B (JUNG) Negative Influenza Type B (PCR) NEGATIVE Influenza A & B Note See Note RSV RNA Qual (PCR) NEGATIVE SARS-CoV-2 RNA (RT-PCR) NEGATIVE 04/12/23 04/12/23 04/12/23 15:59 16:33 16:34 MCV 87.1 MCH 28.4 MCHC 32.6 RDW 16.3 H Plt Count 210 D MPV 8.9 L Immature Gran % (Auto) 0.9 H Neut % (Auto) 71.8 Lymph % (Auto) 11.5 L [place] % (Auto) 14.4 H Eos % (Auto) 0.9 Baso % (Auto) 0.5 Lymph # (Auto) 0.6 L [place] # (Auto) 0.8 Eos # (Auto) 0.1 Baso # (Auto) 0.0 Abs Immat Gran (auto) 0.05 H Absolute Neuts (auto) 4.0 Absolute Nucleated RBC 0.000 Nucleated RBC % (auto) 0.0 APTT 24.8 L VBG pH 7.30 L VBG pCO2 36 VBG pO2 53 VBG HCO3 18 L VBG O2 Saturation 79.0 VBG Base Excess -7.1 Anion Gap 15 Estim Creat Clear Calc 21.4 Estimated GFR 23 Random Glucose 100 Lactic Acid 1.1 Calcium 12.3 H D Total Bilirubin 1.1 H AST 11 ALT < 5 Alkaline Phosphatase 55 Total Protein 6.5 Albumin 2.8 L Lipase 21 Beta-Hydroxybutyrate 2.78 H Urine Color Urine Appearance Urine pH Ur Specific [place] Urine Protein Urine Glucose (UA) Urine Ketones Urine Blood Urine Nitrite Ur Leukocyte Esterase Urine RBC Urine WBC Ur Squamous Epith Cells Urine Bacteria Hyaline Casts Granular Casts COVID-19 (CRISTIAN) COVID-19 Clin Com Influenza Type A (JUNG) Influenza Type A (PCR) Influenza Type B (JUNG) Influenza Type B (PCR) Influenza A & B Note RSV RNA Qual (PCR) SARS-CoV-2 RNA (RT-PCR) Imaging Radiologist's Impressions: Impressions Chest X-Ray 04/12/23 14:20 IMPRESSION: Patchy opacity right lung base likely infiltrate/atelectasis with small right pleural effusion or thickening. Assessment and Plan (1) Pneumonia: Qualifiers: Laterality: right Lung location: lower lobe of lung Pneumonia type: due to unspecified organism Qualified Code(s): J18.9 - Pneumonia, unspecified organism Status: Acute (2) Urinary tract infection: Qualifiers: Encounter type: initial encounter Indwelling urinary catheter type: cystostomy catheter Urinary tract infection type: catheter-associated UTI Qualified Code(s): T83.510A - Infection and inflammatory reaction due to cystostomy catheter, initial encounter; N39.0 - Urinary tract infection, site not specified Status: Acute (3) Acute alteration in mental status: Status: Acute Plan Pt is an 82-year-old male with a PMH significant for?unspecified dementia, cardiomyopathy, CAD s/p NSTEMI, HTN, HLD, hx of PE, recurrent UTIs with Pseudomonas/VRE, and 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 intake of solids and liquids, cough, vomiting, and confusion with visual hallucinations. Pt will be admitted to the hospital for acute metabolic encephalopathy in the setting of UTI and pneumonia. Community-acquired pneumonia Patient with productive, generalized weakness, confusion, CXR with evidence of right lower lobe infiltrate Patient not hypoxic, does not meet sepsis criteria: Tachycardia, but no tachypnea, fever, or leukocytosis; lactic acid WNL at 1.1 Will treat with ceftriaxone, azithromycin, started 04/12/2023 Acute UTI Patient with long history of recurrent UTIs secondary to suprapubic catheter Patient recently admitted on 03/17/23-03/23/23 for similar symptoms, urine cultures Proteus mirabilis susceptible to ceftriaxone Patient does not meet sepsis criteria: Tachycardia, but no tachypnea, fever, or leukocytosis; lactic acid WNL at 1.1 Patient treated with cefepime 2 g in ED Will treat with ceftriaxone, started 04/12/2023 Acute metabolic encephalopathy with hallucinations Likely secondary to UTI and pneumonia Treat as above Monitor mentation Diet Pt has had reduced po intake of both food and liquids since last discharge Previously had G-Tube placement which has subsequently been removed Failed nurse swallow screen Will keep NPO pending formal speech evluation Will place on maintenance fluids Weakness PT evaluation DNR/DNI Attending:?Dr. Martin DVT Prophylaxis: Heparin Pt will require a hospitalization of at least two nights for treatment of?acute metabolic encephalopathy with hallucinations. Given patient's comorbidities, presentation of generalized weakness with significant encephalopathy and dysphagia, patient will require hospitalized care for treatment with IV antibiotics and close monitoring. Quality Stroke Does the patient have a stroke diagnosis?: No VTE Prior VTE?: No VTE Risk Level:: Medical - moderate - high VTE Device Contraindication: Treatment Not Indicated VTE Drug Contraindication: N/A - Med Ordered
[2023-04-12 19:51] VITALS: BP 109/52; PULSE 78; RESP 16; TEMP 36.6; O2SAT 97
--- NOTE | 2023-04-12 19:52 | MHC.EDTECH ---
This tech took over care of patient at 1900,hourly rounds and vitals completed,patient repositioned to comfort,belonging list completed and copy place in chart. Call adame in reach
--- NOTE | 2023-04-12 21:19 | PC.NURSE ---
this rn performed bedside swallow eval. pt unable to swallow water and coughed afterward. unable to proceed with eval. pt FAILED eval this rn made Jessica serrato aware of fail. pt npo
[2023-04-12] MEDS: Heparin Sodium,Porcine 5,000 UNIT/ML VIAL 5000 UNIT SUBCUT (22:06)
[2023-04-12] MEDS: 0.9 % Sodium Chloride 1,000 ML 100 ML IVCONT (22:07)
--- NOTE | 2023-04-12 22:54 | MHC.EDTECH ---
Hourly rounds completed, Emptied 450MLS from [place] bag,cloudy with sediment,patient is resting at this time and call adame in reach. Camera in place for safety
[2023-04-12] MEDS: cefTRIAXone sodium 1 GM in 0.9 % Sodium Chloride 50 ML IV (23:28)
[2023-04-13] VITALS: BP 139/61; PULSE 85; RESP 16; TEMP 36.2; O2SAT 96
[2023-04-13] MEDS: Azithromycin 500 MG in 0.9 % Sodium Chloride 250 ML 125 MG IV (00:45)
[2023-04-13 03:56] VITALS: BP 128/58; PULSE 86; RESP 14; TEMP 36.2; O2SAT 97
[2023-04-13 06:39] LABS: Hematocrit 31.5 % (42.0-52.0); Hemoglobin 10.3 g/dl (14.0-18.0); Mean Corpuscular HGB Conc 32.7 g/dl (31.0-36.0); Mean Corpuscular Hemoglobin 28.6 pg (27.0-33.0); Mean Corpuscular Volume 87.5 fL (80.0-98.0); Mean Platelet Volume 9.1 fL (9.4-12.4); Platelet Count 212 X10*3/uL (160-400); Red Cell Distribution Width 16.6 % (11.0-16.0)
[2023-04-13 07:15] LABS: Anion Gap 15 (12-20); Blood Urea Nitrogen 46 mg/dL (9-16); Carbon Dioxide 20 mmol/L (22-29); Chloride 110 mmol/L (96-108); Creatinine Clr Calc Pharmacy 20.7; Estimated Glomerular Filt Rate 23; Glucose Random 83 mg/dL (60-115); Potassium 4.1 mmol/L (3.3-5.1); Sodium 141 mmol/L (135-145)
[2023-04-13 07:16] VITALS: BP 124/63; PULSE 86; RESP 16; TEMP 36.4; O2SAT 95
--- NOTE | 2023-04-13 08:24 | P.PNIM_ITS ---
Subjective Subjective Date of Service: 04/13/23 Interval History: f/u on acute metabolic encephalopathy. Patient continues to be confused Review of Systems Unable to obtain due to patient's mentation Review of Systems: Yes Unobtainable due to mental status Physical Exam 2 Vital Signs: Vital Signs: Last Vital Signs Temp 97.6 F 04/13/23 07:16 Pulse 86 04/13/23 07:16 Resp 16 04/13/23 07:16 BP 124/63 04/13/23 07:16 Pulse Ox 95 04/13/23 07:16 O2 Del Method Room Air 04/13/23 07:16 BMI result Body Mass Index 22.2 Elderly frail looking male lying in bed in no distress Neck supple, no JVD Regular rate and rhythm, S1-S2 heard Right-sided crackles, no wheezing Abdomen soft nontender, no guarding, no rigidity Patient is awake, alert and oriented to self, disoriented to place, time and person Psych: Normal mood No pedal edema Objective Data Active Medications Heparin Sodium (Porcine) (Heparin Sodium,Porcine 5,000 Unit/Ml Vial) 5,000 unit SUBCUT Q12H [facility] Last Admin: 04/12/23 22:06 Dose: 5,000 unit Documented By: KAPIL Sodium Chloride (Ns) 1,000 mls @ 100 mls/hr IVCONT .Q10H [facility] Last Admin: 04/12/23 22:07 Dose: 100 mls/hr Documented By: KAPIL Ceftriaxone Sodium 1 gm/ (Sodium Chloride) 50 mls @ 100 mls/hr IV Q24H [facility] Last Infusion: 04/13/23 00:16 Dose: Infused Documented By: KAPIL Azithromycin 500 mg/ Sodium (Chloride) 250 mls @ 125 mls/hr IV Q24H [facility] Last Infusion: 04/13/23 02:45 Dose: Infused Documented By: ELIS Ondansetron HCl (Ondansetron Hcl 4 Mg/2 Ml Vial) 4 mg IVPUSH Q8H PRN PRN Reason: Nausea and Vomiting Sodium Chloride (0.9 % Sodium Chloride Flush 3 Ml Syringe) 3 ml IVFLUSH QSHIFT [facility] Last Admin: 04/13/23 07:53 Dose: Not Given Documented By: SAYDA Non-Admin Reason: IV Running Labs 04/13/23 06:08 04/13/23 06:08 Labs: Laboratory Results - last 24 hr 04/12/23 04/12/23 04/12/23 13:15 14:19 14:20 MCV MCH MCHC RDW Plt Count MPV Immature Gran % (Auto) Neut % (Auto) Lymph % (Auto) [place] % (Auto) Eos % (Auto) Baso % (Auto) Lymph # (Auto) [place] # (Auto) Eos # (Auto) Baso # (Auto) Abs Immat Gran (auto) Absolute Neuts (auto) Absolute Nucleated RBC Nucleated RBC % (auto) APTT VBG pH VBG pCO2 VBG pO2 VBG HCO3 VBG O2 Saturation VBG Base Excess Anion Gap Estim Creat Clear Calc Estimated GFR Random Glucose Lactic Acid Calcium Total Bilirubin AST ALT Alkaline Phosphatase Total Protein Albumin Lipase Beta-Hydroxybutyrate Urine Color Yellow Urine Appearance Turbid Urine pH 5.5 Ur Specific [place] 1.020 Urine Protein 100 (2+) H Urine Glucose (UA) Negative Urine Ketones 15 Urine Blood Moderate (2+) H Urine Nitrite Negative Ur Leukocyte Esterase Large (3+) H Urine RBC 3-5 H Urine WBC >50 H Ur Squamous Epith Cells 11-20 Urine Bacteria 4+ Hyaline Casts 3-5 Granular Casts Present COVID-19 (CRISTIAN) Invalid COVID-19 Clin Com See Note Influenza Type A (JUNG) Negative Influenza Type A (PCR) NEGATIVE Influenza Type B (JUNG) Negative Influenza Type B (PCR) NEGATIVE Influenza A & B Note See Note RSV RNA Qual (PCR) NEGATIVE SARS-CoV-2 RNA (RT-PCR) NEGATIVE 04/12/23 04/12/23 04/12/23 15:59 16:33 16:34 MCV 87.1 MCH 28.4 MCHC 32.6 RDW 16.3 H Plt Count 210 D MPV 8.9 L Immature Gran % (Auto) 0.9 H Neut % (Auto) 71.8 Lymph % (Auto) 11.5 L [place] % (Auto) 14.4 H Eos % (Auto) 0.9 Baso % (Auto) 0.5 Lymph # (Auto) 0.6 L [place] # (Auto) 0.8 Eos # (Auto) 0.1 Baso # (Auto) 0.0 Abs Immat Gran (auto) 0.05 H Absolute Neuts (auto) 4.0 Absolute Nucleated RBC 0.000 Nucleated RBC % (auto) 0.0 APTT 24.8 L VBG pH 7.30 L VBG pCO2 36 VBG pO2 53 VBG HCO3 18 L VBG O2 Saturation 79.0 VBG Base Excess -7.1 Anion Gap 15 Estim Creat Clear Calc 21.4 Estimated GFR 23 Random Glucose 100 Lactic Acid 1.1 Calcium 12.3 H D Total Bilirubin 1.1 H AST 11 ALT < 5 Alkaline Phosphatase 55 Total Protein 6.5 Albumin 2.8 L Lipase 21 Beta-Hydroxybutyrate 2.78 H Urine Color Urine Appearance Urine pH Ur Specific [place] Urine Protein Urine Glucose (UA) Urine Ketones Urine Blood Urine Nitrite Ur Leukocyte Esterase Urine RBC Urine WBC Ur Squamous Epith Cells Urine Bacteria Hyaline Casts Granular Casts COVID-19 (CRISTIAN) COVID-19 Clin Com Influenza Type A (JUNG) Influenza Type A (PCR) Influenza Type B (JUNG) Influenza Type B (PCR) Influenza A & B Note RSV RNA Qual (PCR) SARS-CoV-2 RNA (RT-PCR) 04/13/23 06:08 MCV 87.5 MCH 28.6 MCHC 32.7 RDW 16.6 H Plt Count 212 MPV 9.1 L Immature Gran % (Auto) Neut % (Auto) Lymph % (Auto) [place] % (Auto) Eos % (Auto) Baso % (Auto) Lymph # (Auto) [place] # (Auto) Eos # (Auto) Baso # (Auto) Abs Immat Gran (auto) Absolute Neuts (auto) Absolute Nucleated RBC 0.000 Nucleated RBC % (auto) 0.0 APTT VBG pH VBG pCO2 VBG pO2 VBG HCO3 VBG O2 Saturation VBG Base Excess Anion Gap 15 Estim Creat Clear Calc 20.7 Estimated GFR 23 Random Glucose 83 Lactic Acid Calcium 13.0 H* Total Bilirubin AST ALT Alkaline Phosphatase Total Protein Albumin Lipase Beta-Hydroxybutyrate Urine Color Urine Appearance Urine pH Ur Specific [place] Urine Protein Urine Glucose (UA) Urine Ketones Urine Blood Urine Nitrite Ur Leukocyte Esterase Urine RBC Urine WBC Ur Squamous Epith Cells Urine Bacteria Hyaline Casts Granular Casts COVID-19 (CRISTIAN) COVID-19 Clin Com Influenza Type A (JUNG) Influenza Type A (PCR) Influenza Type B (JUNG) Influenza Type B (PCR) Influenza A & B Note RSV RNA Qual (PCR) SARS-CoV-2 RNA (RT-PCR) Assessment and Plan (1) Acute metabolic encephalopathy: Status: Acute Plan Pt is an 82-year-old male with a PMH significant for?unspecified dementia, cardiomyopathy, CAD s/p NSTEMI, HTN, HLD, hx of PE, recurrent UTIs with Pseudomonas/VRE, and 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 intake of solids and liquids, cough, vomiting, and confusion with visual hallucinations. Pt will be admitted to the hospital for acute metabolic encephalopathy in the setting of UTI and pneumonia. Acute metabolic encephalopathy In the setting of UTI and pneumonia. Continue to monitor mentation Community-acquired pneumonia No sepsis Continue ceftriaxone, azithromycin, started 04/12/2023 Acute UTI Patient with long history of recurrent UTIs secondary to suprapubic catheter Patient recently admitted on 03/17/23-03/23/23 for similar symptoms, urine cultures Proteus mirabilis susceptible to ceftriaxone No sepsis. Follow urine culture Continue ceftriaxone, started 04/12/2023 Diet Pt has had reduced po intake of both food and liquids since last discharge Previously had G-Tube placement which has subsequently been removed Failed nurse swallow screen Will keep NPO pending formal speech evluation Hypercalcemia Likely in the setting of dehydration. Obtaining PTH Weakness PT evaluation Chronic kidney disease Creatinine at baseline. Continue to monitor kidney function and urine output, avoid nephrotoxins Starvation ketoacidosis Present during admission. Improving, continue maintenance fluids till speech evaluation. Closely monitor blood sugars Normocytic anemia Of chronic kidney disease. Hemoglobin above transfusion threshold DNR/DNI DVT Prophylaxis: Heparin Pt will require a hospitalization of at least two nights for treatment of?acute metabolic encephalopathy. Given patient's comorbidities, presentation of generalized weakness with significant encephalopathy and dysphagia, patient will require hospitalized care for treatment with IV antibiotics and close monitoring. Quality Stroke Does the patient have a stroke diagnosis?: No VTE Prior VTE?: No VTE Risk Level:: Medical - moderate - high VTE Device Contraindication: Treatment Not Indicated VTE Drug Contraindication: N/A - Med Ordered
[2023-04-13 08:55] LABS: Glucose, Whole Blood 80 mg/dL (60-115)
[2023-04-13] MEDS: Lactated Ringers 1,000 ML 80 ML IVCONT (08:59)
[2023-04-13] MEDS: Heparin Sodium,Porcine 5,000 UNIT/ML VIAL 5000 UNIT SUBCUT (09:02)
[2023-04-13 09:19] LABS: Venous Blood Gas Refer to POC result
[2023-04-13 09:21] LABS: VBG HCO3 20 mmol/L (22-26); VBG pCO2 39 mmHg; VBG pH 7.32 (7.32-7.43); VBG pO2 36 mmHg
[2023-04-13 09:34] LABS: Parathyroid Hormone Intact 17.2 pg/mL (8.7-77.1)
[2023-04-13] MEDS: OLANZapine 10 MG VIAL 5 MG IM (09:51)
[2023-04-13 10:23] VITALS: BP 124/63; PULSE 86; O2SAT 95
[2023-04-13 15:47] VITALS: BP 137/67; PULSE 74; RESP 16; TEMP 36.6; O2SAT 96
[2023-04-13 16:07] LABS: Glucose, Whole Blood 86 mg/dL (60-115)
[2023-04-13] MEDS: 0.9 % Sodium Chloride Flush 3 ML SYRINGE IVFLUSH (16:28)
[2023-04-13 19:13] VITALS: BP 123/64; PULSE 89; RESP 16; TEMP 36.3; O2SAT 95
[2023-04-13 19:25] LABS: Glucose, Whole Blood 83 mg/dL (60-115)
[2023-04-13] MEDS: cefTRIAXone sodium 1 GM in 0.9 % Sodium Chloride 50 ML IV (23:40)
[2023-04-14] MEDS: Lactated Ringers 1,000 ML 80 ML IVCONT (00:07)
[2023-04-14] MEDS: Azithromycin 500 MG in 0.9 % Sodium Chloride 250 ML 125 MG IV ×2 (00:15→23:31)
[2023-04-14] MEDS: Heparin Sodium,Porcine 5,000 UNIT/ML VIAL 5000 UNIT SUBCUT ×3 (00:21→23:13)
[2023-04-14 01:42] LABS: Glucose, Whole Blood 79 mg/dL (60-115)
[2023-04-14 03:26] VITALS: BP 131/66; PULSE 79; RESP 14; TEMP 36.9; O2SAT 97
[2023-04-14 07:24] LABS: Basophils Percent Auto 1.1 % (0-2); Eosinophils Absolute Auto 0.4 X10*3/uL (0.0-0.4); Eosinophils Percent Auto 10.8 % (0-4); Hematocrit 31.7 % (42.0-52.0); Hemoglobin 10.1 g/dl (14.0-18.0); Imm Gran Abs Auto 0.05 X10*3/uL (0.00-0.03); Imm Gran Pct Auto 1.4 % (0.0-0.4); Lymphocytes Absolute Auto 0.7 X10*3/uL (1.2-4.9); Lymphocytes Percent Auto 19.9 % (20-40); MANUAL DIFF FLAG SCAN; Mean Corpuscular HGB Conc 31.9 g/dl (31.0-36.0); Mean Corpuscular Hemoglobin 28.5 pg (27.0-33.0); Mean Corpuscular Volume 89.5 fL (80.0-98.0); Mean Platelet Volume 9.7 fL (9.4-12.4); Monocytes Absolute Auto 0.8 X10*3/uL (0.1-1.2); Monocytes Percent Auto 22.7 % (2-11); Neutrophils Absolute Auto 1.6 x10*3/uL (2.0-8.3); Neutrophils Percent Auto 44.1 % (45-73); Platelet Count 230 X10*3/uL (160-400); Red Blood Count 3.54 X10*6/uL (4.60-5.80); Red Cell Distribution Width 16.7 % (11.0-16.0); SCAN SMEAR FLAG 1; White Blood Count 3.6 X10*3/uL (4.8-10.8)
[2023-04-14 07:26] VITALS: BP 140/65; PULSE 81; RESP 16; TEMP 36.3; O2SAT 96
[2023-04-14 07:41] LABS: Glucose, Whole Blood 71 mg/dL (60-115)
[2023-04-14 07:52] LABS: Anion Gap 14 (12-20); Blood Urea Nitrogen 46 mg/dL (9-16); Carbon Dioxide 20 mmol/L (22-29); Chloride 113 mmol/L (96-108); Creatinine Clr Calc Pharmacy 21.8; Estimated Glomerular Filt Rate 24; Glucose Random 68 mg/dL (60-115); Potassium 4.1 mmol/L (3.3-5.1); Sodium 143 mmol/L (135-145)
[2023-04-14 07:57] LABS: SLIDE REVIEW VERIFIED
[2023-04-14 08:04] LABS: Calcium 13.7 mg/dL (8.4-10.2)
[2023-04-14] MEDS: 0.9 % Sodium Chloride 1,000 ML 125 ML IVCONT ×2 (08:49→16:16)
--- NOTE | 2023-04-14 11:45 | HO.PM.IMPN ---
Subjective Subjective Date of Service: 04/14/23 Interval History: No acute issues overnight. Minimally verbal. Calcium corrects to 14.1 Review of Systems Unable to obtain Physical Exam Vital Signs: Vital Signs: Last Vital Signs Temp 97.4 F 04/14/23 07:26 Pulse 81 04/14/23 07:26 Resp 16 04/14/23 07:26 BP 140/65 H 04/14/23 07:26 Pulse Ox 96 04/14/23 07:26 O2 Del Method Room Air 04/14/23 07:26 BMI result Body Mass Index 22.2 Const: Other: Awake alert no acute issues overnight Resp: Other: Clear to auscultation bilaterally no rales rhonchi or wheezes Cardio: Other: No S4; positive S1-S2; no S3 murmurs rubs or gallops GI: Other: Soft nontender nondistended normoactive bowel sounds Extrem: Other: No edema bilaterally Objective Data Active Medications Dextrose (Dextrose 50 % 25 Gm/50 Ml Syringe) 25 gm IVPUSH Q15M PRN; Protocol PRN Reason: per Hypoglycemia Standing Ord. Glucose (Glucose Gel 15 Gm Gel..Gram.) 15 gm PO Q15M PRN; Protocol PRN Reason: per Hypoglycemia Standing Ord. Heparin Sodium (Porcine) (Heparin Sodium,Porcine 5,000 Unit/Ml Vial) 5,000 unit SUBCUT Q12H [facility] Last Admin: 04/14/23 10:31 Dose: 5,000 unit Documented By: SAYDA Ceftriaxone Sodium 1 gm/ (Sodium Chloride) 50 mls @ 100 mls/hr IV Q24H [facility] Last Infusion: 04/14/23 00:21 Dose: Infused Documented By: ELIS Azithromycin 500 mg/ Sodium (Chloride) 250 mls @ 125 mls/hr IV Q24H [facility] Last Infusion: 04/14/23 02:15 Dose: Infused Documented By: ELIS Sodium Chloride (Ns) 1,000 mls @ 125 mls/hr IVCONT .Q8H [facility] Last Admin: 04/14/23 08:49 Dose: 125 mls/hr Documented By: SAYDA Insulin Human Lispro (Insulin Lispro 100 Unit/Ml 3 Ml Vial) 0 unit SUBCUT Q6H [facility]; Protocol Last Admin: 04/14/23 07:48 Dose: Not Given Documented By: SAYDA Non-Admin Reason: No Insulin Coverage Ondansetron HCl (Ondansetron Hcl 4 Mg/2 Ml Vial) 4 mg IVPUSH Q8H PRN PRN Reason: Nausea and Vomiting Sodium Chloride (0.9 % Sodium Chloride Flush 3 Ml Syringe) 3 ml IVFLUSH QSHIFT [facility] Last Admin: 04/14/23 07:48 Dose: Not Given Documented By: SAYDA Non-Admin Reason: IV Running Labs 04/14/23 06:06 04/14/23 06:06 Labs: Laboratory Results - last 24 hr 04/13/23 04/13/23 04/14/23 15:49 19:22 01:38 MCV MCH MCHC RDW Plt Count MPV Immature Gran % (Auto) Neut % (Auto) Lymph % (Auto) [place] % (Auto) Eos % (Auto) Baso % (Auto) Lymph # (Auto) [place] # (Auto) Eos # (Auto) Baso # (Auto) Abs Immat Gran (auto) Absolute Neuts (auto) Absolute Nucleated RBC Nucleated RBC % (auto) Smear Tech's Comments Anion Gap Estim Creat Clear Calc Estimated GFR POC Glucose 86 83 79 Random Glucose Calcium 04/14/23 04/14/23 06:06 07:34 MCV 89.5 MCH 28.5 MCHC 31.9 RDW 16.7 H Plt Count 230 MPV 9.7 Immature Gran % (Auto) 1.4 H Neut % (Auto) 44.1 L Lymph % (Auto) 19.9 L [place] % (Auto) 22.7 H Eos % (Auto) 10.8 H Baso % (Auto) 1.1 Lymph # (Auto) 0.7 L [place] # (Auto) 0.8 Eos # (Auto) 0.4 Baso # (Auto) 0.0 Abs Immat Gran (auto) 0.05 H Absolute Neuts (auto) 1.6 L Absolute Nucleated RBC 0.000 Nucleated RBC % (auto) 0.0 Smear Tech's Comments VERIFIED Anion Gap 14 Estim Creat Clear Calc 21.8 Estimated GFR 24 POC Glucose 71 Random Glucose 68 Calcium 13.7 H* Microbiology Microbiology Results: Microbiology 04/12/23 15:04 Urine Culture - Preliminary Urine Catheterized - Barry Catheter Gram negative larissa 04/12/23 15:59 Blood Culture - Preliminary Blood - Venous No growth after 24 hours. 04/12/23 14:20 Blood Culture - Preliminary Blood - Venous No growth after 24 hours. 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 intake of solids and liquids, cough, vomiting, and confusion with visual hallucinations. Pt will be admitted to the hospital for acute metabolic encephalopathy in the setting of UTI and pneumonia. 1.Acute metabolic encephalopathy secondary to UTI/Community-acquired pneumonia -ceftriaxone/azithromycin(3) -urine preliminary with Gram-negative rods -long history of recurrent UTIs secondary to suprapubic catheter;admitted 03/17/23-03/23/23 for similar symptoms(urine cultures Proteus mirabilis susceptible to ceftriaxone) -blood cultures negative times 24 hours 2. Dysphasia -NPO/IV fluid pending speech eval 3.Hypercalcemia -corrected calcium proximally 14.1 -switch to NSS@125/hour -renal consult -follow renals/divalents 4.Chronic kidney disease -as per 3 DNR/DNI Heparin Patient requires ongoing hospitalization to treat UTI/community-acquired pneumonia with IV antibiotics as well as IV volume replacement to correct hypercalcemia. Will also require specialist consultation with regards to speech and swallowing Quality Stroke Does the patient have a stroke diagnosis?: No VTE Prior VTE?: No VTE Risk Level:: Medical - moderate - high VTE Device Contraindication: Treatment Not Indicated VTE Drug Contraindication: N/A - Med Ordered
[2023-04-14 14:18] LABS: Glucose, Whole Blood 78 mg/dL (60-115)
[2023-04-14 15:19] VITALS: BP 121/58; PULSE 90; RESP 18; TEMP 37; O2SAT 94
[2023-04-14 19:40] VITALS: BP 117/56; PULSE 71; RESP 17; TEMP 36.4; O2SAT 95
[2023-04-14 20:27] LABS: Glucose, Whole Blood 74 mg/dL (60-115)
[2023-04-14] MEDS: cefTRIAXone sodium 1 GM in 0.9 % Sodium Chloride 50 ML IV (23:24)
[2023-04-15] MEDS: 0.9 % Sodium Chloride 1,000 ML 125 ML IVCONT (00:23)
[2023-04-15 01:22] LABS: Glucose, Whole Blood 69 mg/dL (60-115)
[2023-04-15 03:17] VITALS: BP 133/64; PULSE 87; RESP 14; TEMP 36.8; O2SAT 97
[2023-04-15] MEDS: Dextrose 5 % and 0.9 % NaCl 1,000 ML 50 ML IVCONT (04:28)
[2023-04-15 07:12] LABS: MANUAL DIFF FLAG NO
[2023-04-15 07:16] VITALS: BP 151/73; PULSE 88; RESP 20; TEMP 36.4; O2SAT 95
[2023-04-15 07:39] LABS: Basophils Percent Auto 1.2 % (0-2); Eosinophils Absolute Auto 0.2 X10*3/uL (0.0-0.4); Eosinophils Percent Auto 5.5 % (0-4); Hematocrit 31.2 % (42.0-52.0); Imm Gran Abs Auto 0.04 X10*3/uL (0.00-0.03); Imm Gran Pct Auto 1.2 % (0.0-0.4); Lymphocytes Absolute Auto 0.7 X10*3/uL (1.2-4.9); Lymphocytes Percent Auto 21.5 % (20-40); Mean Corpuscular HGB Conc 32.1 g/dl (31.0-36.0); Mean Corpuscular Hemoglobin 28.9 pg (27.0-33.0); Mean Corpuscular Volume 90.2 fL (80.0-98.0); Mean Platelet Volume 9.3 fL (9.4-12.4); Monocytes Absolute Auto 0.6 X10*3/uL (0.1-1.2); Monocytes Percent Auto 19.4 % (2-11); Neutrophils Absolute Auto 1.7 x10*3/uL (2.0-8.3); Neutrophils Percent Auto 51.2 % (45-73); Platelet Count 213 X10*3/uL (160-400); Red Blood Count 3.46 X10*6/uL (4.60-5.80); Red Cell Distribution Width 16.9 % (11.0-16.0); White Blood Count 3.3 X10*3/uL (4.8-10.8)
[2023-04-15 07:43] LABS: Alanine Aminotransferase 6 U/L (0-40); Albumin Level 2.8 g/dL (3.5-5.0); Alkaline Phosphatase 55 U/L (39-117); Anion Gap 16 (12-20); Aspartate Amino Transferase 12 U/L (5-37); Bilirubin Total 0.7 mg/dL (0.0-1.0); Blood Urea Nitrogen 39 mg/dL (9-16); Carbon Dioxide 17 mmol/L (22-29); Chloride 117 mmol/L (96-108); Creatinine Clr Calc Pharmacy 24.4; Estimated Glomerular Filt Rate 27; Glucose Fasting 76 mg/dL (60-99); Sodium 146 mmol/L (135-145); Total Protein 6.5 g/dL (6.5-8.0)
[2023-04-15 07:45] LABS: Calcium 13.7 mg/dL (8.4-10.2)
[2023-04-15 07:57] LABS: Glucose, Whole Blood 79 mg/dL (60-115)
[2023-04-15] MEDS: Dextrose 5 % and 0.9 % NaCl 1,000 ML 125 ML IVCONT ×2 (07:57→13:27)
--- NOTE | 2023-04-15 09:45 | MHC.SL.SWA ---
Speech Pathologist Impression: Risk of aspiration, oropharyngeal dysphagia Risk of Aspiration Due to: History of Pneumonia Reduced Cognition Dysphasia Diet Status: Upgrade from NPO, start on NDD1/NTL Liquid Consistency and Strategies for Safe Swallow: Liquid Intake Recommendation: Crook Thick Liquid Intake Strategies: Small Sips No Straws Solid Food Consistency: Dietary Recommendations: Pureed (NDD1) Additional Modifications to Solid Foods: Recommend UPGRADE from NPO, start on PUREED (NDD1) diet with NECTAR THICK liquids, pills CRUSHED in PUREE. Pt will require 1:1 assistance feeding. Check oral cavity throughout feeding as pt does have a tendency to pocket food. Alternate bites of food with sips of liquid to promote oral clearance. Oral Medication Intake: Crushed with Puree Please contact the pharmacy regarding appropriate crushable or liquid drug formulations that are available whenever modified delivery is recommended. Compensatory Strategies and Precautions to be Taken for Safe Swallow: Sitting Upright (90 deg) No Straw Liquids from Cup Liquids from Spoon Small Bites and Sips Alternate Liquids/Solids Rate of Ingestion Change Oral Check Avoid Specific Foods Supervision While Eating and Drinking for Safe Swallow: Total Assistance (1:1) Foods to Avoid: [place] sticky or congealed purees Swallowing Recommended Treatments: Compens. Strategy Educat. Recommendation for Speech: Inpatient Speech Therapy Comment: OPHTHALMIC MEDICAL TECHNOLOGIST will continue to follow to monitor pt's tolerance of modified diet and to re-assess for potential upgrade when appropriate. Frequency/Duration: M-F PRN Date Range for Service Req: Timeline to reassess: Clinical Research Management Associate Clinican/Clinical Fellow: No Supervisory Statement: I have reviewed and agree with the student/clinical fellow's documentation: N/A Speech Language Pathologist: Anjelica Davis M.A., CCC-OPHTHALMIC MEDICAL TECHNOLOGIST
--- NOTE | 2023-04-15 11:21 | MHC.CLN ---
NUTRITION DIET PER SCHOOL CUSTODIAN: PUREE WITH NECTAR THICK LIQUIDS, 1:1 FEED. POOR INTAKE REPORTED 2-3 DAYS PRIOR TO ADMIT. SKIN WITH STAGE I TO RIGHT BUTTOCK. FOLLOW UP WEEKLY FOR INTAKE AND SKIN INTEGRITY.
--- NOTE | 2023-04-15 11:50 | HO.PM.IMPN ---
Subjective Subjective Date of Service: 04/15/23 Interval History: Improving. Seen by speech who advance diet Review of Systems Unable to obtain Physical Exam Vital Signs: Vital Signs: Last Vital Signs Temp 97.6 F 04/15/23 07:16 Pulse 88 04/15/23 07:16 Resp 20 04/15/23 07:16 BP 151/73 H 04/15/23 07:16 Pulse Ox 95 04/15/23 07:16 O2 Del Method Room Air 04/15/23 07:16 BMI result Body Mass Index 22.2 Const: Other: Awake alert no acute issues overnight Resp: Other: Clear to auscultation bilaterally no rales rhonchi or wheezes Cardio: Other: No S4; positive S1-S2; no S3 murmurs rubs or gallops GI: Other: Soft nontender nondistended normoactive bowel sounds Extrem: Other: No edema bilaterally Objective Data Active Medications Dextrose (Dextrose 50 % 25 Gm/50 Ml Syringe) 25 gm IVPUSH Q15M PRN; Protocol PRN Reason: per Hypoglycemia Standing Ord. Glucose (Glucose Gel 15 Gm Gel..Gram.) 15 gm PO Q15M PRN; Protocol PRN Reason: per Hypoglycemia Standing Ord. Heparin Sodium (Porcine) (Heparin Sodium,Porcine 5,000 Unit/Ml Vial) 5,000 unit SUBCUT Q12H [facility] Last Admin: 04/15/23 09:11 Dose: Not Given Documented By: GOSIA Non-Admin Reason: Patient Refused Ceftriaxone Sodium 1 gm/ (Sodium Chloride) 50 mls @ 100 mls/hr IV Q24H [facility] Last Infusion: 04/15/23 00:30 Dose: Infused Documented By: ANGELA Azithromycin 500 mg/ Sodium (Chloride) 250 mls @ 125 mls/hr IV Q24H [facility] Last Infusion: 04/15/23 01:39 Dose: Infused Documented By: ANGELA Dextrose/Sodium Chloride (D5ns) 1,000 mls @ 125 mls/hr IVCONT .Q8H [facility] Last Admin: 04/15/23 07:57 Dose: 125 mls/hr Documented By: GOSIA Insulin Human Lispro (Insulin Lispro 100 Unit/Ml 3 Ml Vial) 0 unit SUBCUT Q6H [facility]; Protocol Last Admin: 04/15/23 07:59 Dose: Not Given Documented By: GOSIA Non-Admin Reason: No Insulin Coverage Ondansetron HCl (Ondansetron Hcl 4 Mg/2 Ml Vial) 4 mg IVPUSH Q8H PRN PRN Reason: Nausea and Vomiting Sodium Chloride (0.9 % Sodium Chloride Flush 3 Ml Syringe) 3 ml IVFLUSH QSHIFT [facility] Last Admin: 04/15/23 07:11 Dose: Not Given Documented By: GOSIA Non-Admin Reason: IV Running Labs 04/15/23 05:59 04/15/23 05:59 Labs: Laboratory Results - last 24 hr 04/14/23 04/14/23 04/15/23 14:12 20:06 01:17 MCV MCH MCHC RDW Plt Count MPV Immature Gran % (Auto) Neut % (Auto) Lymph % (Auto) [place] % (Auto) Eos % (Auto) Baso % (Auto) Lymph # (Auto) [place] # (Auto) Eos # (Auto) Baso # (Auto) Abs Immat Gran (auto) Absolute Neuts (auto) Absolute Nucleated RBC Nucleated RBC % (auto) Anion Gap Estim Creat Clear Calc Estimated GFR POC Glucose 78 74 69 Fasting Glucose Calcium Total Bilirubin AST ALT Alkaline Phosphatase Total Protein Albumin 04/15/23 04/15/23 05:59 07:53 MCV 90.2 MCH 28.9 MCHC 32.1 RDW 16.9 H Plt Count 213 MPV 9.3 L Immature Gran % (Auto) 1.2 H Neut % (Auto) 51.2 Lymph % (Auto) 21.5 [place] % (Auto) 19.4 H Eos % (Auto) 5.5 H Baso % (Auto) 1.2 Lymph # (Auto) 0.7 L [place] # (Auto) 0.6 Eos # (Auto) 0.2 Baso # (Auto) 0.0 Abs Immat Gran (auto) 0.04 H Absolute Neuts (auto) 1.7 L Absolute Nucleated RBC 0.000 Nucleated RBC % (auto) 0.0 Anion Gap 16 Estim Creat Clear Calc 24.4 Estimated GFR 27 POC Glucose 79 Fasting Glucose 76 Calcium 13.7 H* Total Bilirubin 0.7 AST 12 ALT 6 Alkaline Phosphatase 55 Total Protein 6.5 Albumin 2.8 L Microbiology Microbiology Results: Microbiology 04/12/23 15:59 Blood Culture - Preliminary Blood - Venous Gram positive larissa 04/12/23 15:04 Urine Culture - Preliminary Urine Catheterized - Barry Catheter Pseudomonas aeruginosa 04/12/23 14:20 Blood Culture - Preliminary Blood - Venous No growth after 48 hours. 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 intake of solids and liquids, cough, vomiting, and confusion with visual hallucinations. Pt will be admitted to the hospital for acute metabolic encephalopathy in the setting of UTI and pneumonia. 1.Acute metabolic encephalopathy secondary to UTI/Community-acquired pneumonia -DC ceftriaxone/azithromycin(3)... Urine culture Pseudomonas sensitive to Levaquin...renally dosed -blood cultures negative times 24 hours 2. Dysphasia -seen by speech recommend NDDM1 diet 3.Hypercalcemia -corrected calcium proximally 14.1... No change since 04/14 -switch to LR@125/hour.... Sodium rising -renal consult -follow renals/divalents 4.Chronic kidney disease -as per 3 DNR/DNI Heparin Patient requires ongoing hospitalization to treat UTI/community-acquired pneumonia with IV antibiotics as well as IV volume replacement to correct hypercalcemia. Will also require specialist consultation with regards to speech and swallowing Quality Stroke Does the patient have a stroke diagnosis?: No VTE Prior VTE?: No VTE Risk Level:: Medical - moderate - high VTE Device Contraindication: Treatment Not Indicated VTE Drug Contraindication: N/A - Med Ordered
--- NOTE | 2023-04-15 11:59 | HO.WOUND ---
Wound Consult: Initial 82yr old? M admitted to [facility] on - See progress notes and H&P for detailed history.? Wound consult placed for Right Sacrum Buttock.? Patient agreeable to assessment and photo documentation.? Right Sacrum Etiology: ?Stage 2 Pressure Injury ?Present on Admission Measurements: 2cm x 0.8cm x 0.1cm Wound Bed: dry resurfacing hyperpigmented wound bed Drainage / Odor: None Edges: ? Attached Mary wound: Red pink blanchable pigmentation ? No Induration, Fluctuance or Warmth noted Pain: denies Goals of Treatment: ? Off Load Pressure - moist wound healing and protect from friction and moisture Recommendations: 1. Turn and Reposition every 2 hours and as needed for patient comfort.? Use pillows or wedges to support off loading positions. 2. Off Load all bony prominences with use of pillows and heel boots if needed.? Apply Preventative foams where needed. ? 3. Monitor for incontinence and moisture control, use barrier creams when needed for prevention and treatment. 4. Provide adequate and supplemental nutrition.? 5. Order low air loss mattress. 6. Sacrum - Off Load Pressure - Cleanse with routine cleansing, pat dry. Apply Sacral Foam dressing, peel back and assess Q shift - Change every 3 days and PRN. Re-consult wound care Nurse for wound deterioration or wound changes.
--- NOTE | 2023-04-15 12:26 | MHC.CM.PN ---
A bed offer has been received from [facility]. Notified PT's HCP/SO. She has accepted the bed. The patients diet has been advanced this afternoon. Per MD KEEN tomorrow. Notified HCP/SO that discharge will be tomorrow. She will need to sign the patient in. She will need to coordinate a ride to the facility. SOLE [facility] via BLS 04/16/23.
[2023-04-15] MEDS: levoFLOXacin 250 MG TABLET PO (13:46)
[2023-04-15 14:00] LABS: Glucose, Whole Blood 153 mg/dL (60-115)
[2023-04-15 15:26] VITALS: BP 139/72; PULSE 87; RESP 16; TEMP 36.2; O2SAT 96
--- NOTE | 2023-04-15 16:03 | P.CONNP_ITS ---
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 intake of solids and liquids, cough, vomiting, and confusion with visual hallucinations. ?Patient is currently alert and oriented to self only and incapable of providing meaningful were accurate HPI, which is instead obtained from chart and provider review. Patient lives at home with his elderly and was recently admitted to the hospital on 03/22/2023-03/23/2023 and treated for weakness and confusion due to metabolic encephalopathy in the setting of UTI with sepsis and ALETHEA. Urine culture grew Proteus mirabilis sensitive to ceftriaxone. 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 Mother No problems noted. Surgical History Surgical History History of surgery Social History Social History Household Members: Unknown / Unable to assess Housing: Unknown / Unable to assess Do you presently have visiting nurse or other home services: Yes Alcohol intake: never Comment: 1:1 sitter Patient Tobacco Use Status: Never used Tobacco Smoked in Last 30 Days: No e-Cigarette/Vaping Use: Never Used Second Hand Smoke Exposure: No Use of substances other than those prescribed or required for medical reasons: Unknown Last Used Substance: Unknown Currently Displaying Signs/Symptoms of Drug Intoxication Withdrawal: No Have you been hit, kicked, punched, or otherwise hurt by someone within the past year? If so, by whom?: No Do you feel safe in your current relationship?: No Current Relationship Is there a partner from a previous relationship who is making you feel unsafe now?: No Are you made to feel afraid or neglected: No Advance Directives: Yes Advance Directives on File: Yes Advance Directives Date on File: 09/21/21 Recently lost weight without trying: Unsure How much weight loss: Unsure Eating poorly because of decreased appetite: No Nutrition screen score: 4 Nutrition Risks: No Nutritional Risk and Difficulty swallowing service: No Current occupational status: unemployed and retired Meds Allergies Allergy/AdvReac Type Severity Reaction Status Date / Time No Known Allergies Allergy Verified 04/12/23 13:06 Active Medications: Current Medications Dextrose (Dextrose 50 % 25 Gm/50 Ml Syringe) 25 gm IVPUSH Q15M PRN; Protocol PRN Reason: per Hypoglycemia Standing Ord. Glucose (Glucose Gel 15 Gm Gel..Gram.) 15 gm PO Q15M PRN; Protocol PRN Reason: per Hypoglycemia Standing Ord. Heparin Sodium (Porcine) (Heparin Sodium,Porcine 5,000 Unit/Ml Vial) 5,000 unit SUBCUT Q12H [facility] Last Admin: 04/15/23 09:11 Dose: Not Given Insulin Human Lispro (Insulin Lispro 100 Unit/Ml 3 Ml Vial) 0 unit SUBCUT QIDACHS [facility]; Protocol Levofloxacin (Levofloxacin 250 Mg Tablet) 250 mg PO Q24H [facility] Last Admin: 04/15/23 13:46 Dose: 250 mg Ondansetron HCl (Ondansetron Hcl 4 Mg/2 Ml Vial) 4 mg IVPUSH Q8H PRN PRN Reason: Nausea and Vomiting Sodium Chloride (0.9 % Sodium Chloride Flush 3 Ml Syringe) 3 ml IVFLUSH QSHIFT [facility] Last Admin: 04/15/23 07:11 Dose: Not Given Home Medications Medication Instructions Recorded Confirmed Last Taken Type ascorbic acid (vitamin C) 1,000 mg 1,000 mg PO DAILY 03/17/23 04/12/23 Unknown History tablet aspirin 81 mg tablet,delayed 81 mg PO DAILY 03/17/23 04/12/23 Unknown History release methenamine hippurate 1 gram tablet 1 g feeding tube daily 03/17/23 04/12/23 Unknown History Physical Exam Vital Signs: Last Vital Signs Temp 97.1 F 04/15/23 15:26 Pulse 87 04/15/23 15:26 Resp 16 04/15/23 15:26 BP 139/72 04/15/23 15:26 Pulse Ox 96 04/15/23 15:26 O2 Del Method Room Air 04/15/23 15:26 BMI result Body Mass Index 22.2 Awake. ill appearing Neck is supple. Mucosa moist. Lungs bilateral scattered rhonchi. Heart S1-S2 heard no gallop. Abdomen soft. Extremities no edema. No involuntary movements. No myoclonus. Results Lab Results 04/17/23 05:49 04/17/23 05:49 Lab results: Chemistry 04/12/23 04/13/23 04/14/23 15:59 06:08 06:06 Sodium 137 141 143 Potassium 4.1 4.1 4.1 Carbon Dioxide 16 L 20 L 20 L BUN 47 H 46 H 46 H Creatinine 2.63 H 2.72 H 2.58 H Calcium 12.3 H D 13.0 H* 13.7 H* 04/15/23 05:59 Sodium 146 H Potassium 4.0 Carbon Dioxide 17 L BUN 39 H Creatinine 2.31 H Calcium 13.7 H* Hematology 04/12/23 04/13/23 04/14/23 16:33 06:08 06:06 WBC 5.5 4.0 L 3.6 L Hgb 11.2 L D 10.3 L 10.1 L Plt Count 210 D 212 230 04/15/23 05:59 WBC 3.3 L Hgb 10.0 L Plt Count 213 Assessment and Plan (1) Acute metabolic encephalopathy: Status: Acute (2) Hypercalcemia: Status: Acute (3) Hypernatremia: Status: Resolved Plan Elderly man with ALETHEA And hypernatremia due to free water deficit PTH was suppresed at 7 pg/ml and NO MCGP in 2021 Suggest IV hydration with NS at 100 cc/hr Check SPEP Follow calcium If Ca remains elevated despite hydration, would consider Zometa Concur with current work up Procedures Date of Service Date of Service: 04/17/23
[2023-04-15 16:22] LABS: Glucose, Whole Blood 140 mg/dL (60-115)
[2023-04-15 20:00] VITALS: BP 159/74; PULSE 80; RESP 16; TEMP 36.3; O2SAT 96
[2023-04-15 20:54] LABS: Glucose, Whole Blood 138 mg/dL (60-115)
[2023-04-15] MEDS: 0.9 % Sodium Chloride Flush 3 ML SYRINGE IVFLUSH (21:46)
[2023-04-15] MEDS: Heparin Sodium,Porcine 5,000 UNIT/ML VIAL 5000 UNIT SUBCUT (21:46)
[2023-04-16 03:38] VITALS: BP 155/74; PULSE 77; RESP 16; TEMP 36.5; O2SAT 97
[2023-04-16 05:20] LABS: Eosinophils Absolute Auto 0.1 X10*3/uL (0.0-0.4); Hematocrit 31.9 % (42.0-52.0); Hemoglobin 10.3 g/dl (14.0-18.0); Imm Gran Abs Auto 0.04 X10*3/uL (0.00-0.03); Imm Gran Pct Auto 1.3 % (0.0-0.4); Lymphocytes Absolute Auto 0.9 X10*3/uL (1.2-4.9); Lymphocytes Percent Auto 29.3 % (20-40); MANUAL DIFF FLAG SCAN; Mean Corpuscular HGB Conc 32.3 g/dl (31.0-36.0); Mean Corpuscular Hemoglobin 29.3 pg (27.0-33.0); Mean Corpuscular Volume 90.6 fL (80.0-98.0); Mean Platelet Volume 9.2 fL (9.4-12.4); Monocytes Absolute Auto 0.6 X10*3/uL (0.1-1.2); Monocytes Percent Auto 20.9 % (2-11); Neutrophils Absolute Auto 1.3 x10*3/uL (2.0-8.3); Neutrophils Percent Auto 44.5 % (45-73); Platelet Count 198 X10*3/uL (160-400); Red Blood Count 3.52 X10*6/uL (4.60-5.80); Red Cell Distribution Width 16.9 % (11.0-16.0); SCAN SMEAR FLAG 1
[2023-04-16 05:38] LABS: Alanine Aminotransferase 5 U/L (0-40); Albumin Level 2.8 g/dL (3.5-5.0); Alkaline Phosphatase 53 U/L (39-117); Anion Gap 10 (12-20); Aspartate Amino Transferase 13 U/L (5-37); Bilirubin Total 0.7 mg/dL (0.0-1.0); Blood Urea Nitrogen 37 mg/dL (9-16); Carbon Dioxide 22 mmol/L (22-29); Chloride 120 mmol/L (96-108); Creatinine Clr Calc Pharmacy 24.5; Estimated Glomerular Filt Rate 27; Glucose Fasting 121 mg/dL (60-99); Potassium 3.7 mmol/L (3.3-5.1); Sodium 148 mmol/L (135-145); Total Protein 6.6 g/dL (6.5-8.0)
[2023-04-16 05:40] LABS: Calcium 14.4 mg/dL (8.4-10.2)
[2023-04-16 05:41] LABS: SLIDE REVIEW VERIFIED
[2023-04-16 07:09] VITALS: BP 161/77; PULSE 74; RESP 20; TEMP 36.2; O2SAT 96
[2023-04-16] MEDS: 0.9 % Sodium Chloride 1,000 ML 100 ML IVCONT (07:36)
[2023-04-16] MEDS: 0.9 % Sodium Chloride Flush 3 ML SYRINGE IVFLUSH (07:36)
[2023-04-16 07:38] LABS: Glucose, Whole Blood 110 mg/dL (60-115)
--- NOTE | 2023-04-16 08:32 | P.CDIM_ITS ---
PROVIDER RESPONSE TEXT: To clarify, the appropriate diagnosis supported by the clinical indicators: Pressure (decubitus) ulcer right sacrum stage 2 QUERY TEXT: PHYSICIAN'S DOCUMENTATION REQUEST Date of Query: 04/16/2023 07:51 AM EST Patient Name: Festus Valenzuela Admit Date: 04/13/2023 Dear Js Barber, A review of the medical record indicates additional documentation may be needed. Please review below and update the documentation accordingly. Clinical Indicators: Wound care nursing notes dated 04/15 - Pressure injury right sacrum stage 2, present on arrival Turn and reposition every 2 hours as needed. Provide adequate and supplement nutrition. Based on the above, could you please provide further information regarding the ulcer/wound/injury: Pressure (decubitus) ulcer right sacrum stage 2 Other Other (explain) Clinically unable to determine (explain) Thank you, Dara Contreras, CCS, CDIS Use of terms such as suspected, likely, concern for, or probable (associated with a specific diagnosi s that is being evaluated, monitored, or treated as if it exists) are acceptable and can be coded in the inpatient se tting, when documented at the time of discharge. Please use your independent medical judgment in providing your response. THIS QUERY IS PART OF THE PERMANENT MEDICAL RECORD
--- NOTE | 2023-04-16 08:32 | P.CDIM_ITS ---
PROVIDER RESPONSE TEXT: To clarify, the appropriate diagnosis supported by the clinical indicators: Chronic kidney disease: 3 QUERY TEXT: PHYSICIAN'S DOCUMENTATION REQUEST Date of Query: 04/15/2023 08:31 AM EST Patient Name: Festus Valenzuela Admit Date: 04/13/2023 Dear Js Barber, A review of the medical record indicates additional documentation may be needed. Please review below and update the documentation accordingly. Clinical Indicators: Progress note and H&P: Chronic kidney disease Creatinine at baseline. Continue to monitor kidney function and urine output, avoid nephrotoxins. Cr. 2.63 Bun 47 Gfr 23 Please clarify which of the following accurately represents the patient's stage of the CKD noted with in the medical record: Chronic kidney disease Stage 1 - 5 or other Acute on chronic kidney disease Stage 1-5 Other (explain) Clinically unable to determine (explain) Thank you, Dara Contreras, CCS, CDIS Use of terms such as suspected, likely, concern for, or probable (associated with a specific diagnosi s that is being evaluated, monitored, or treated as if it exists) are acceptable and can be coded in the inpatient se tting, when documented at the time of discharge. Please use your independent medical judgment in providing your response. THIS QUERY IS PART OF THE PERMANENT MEDICAL RECORD
[2023-04-16] MEDS: Heparin Sodium,Porcine 5,000 UNIT/ML VIAL 5000 UNIT SUBCUT ×2 (09:06→21:34)
--- NOTE | 2023-04-16 09:06 | P.PNNP_ITS ---
Subjective Subjective Date of Service: 04/16/23 Interval history: Seen and examined this AM. All recent data reviewed. Discussed with the RN and hospitalist. Cannot obtain ROS due to his current clinical status Physical Exam 2 Vital Signs: Vital Signs: Last Vital Signs Temp 97.2 F 04/16/23 07:09 Pulse 74 04/16/23 07:09 Resp 20 04/16/23 07:09 BP 161/77 H 04/16/23 07:09 Pulse Ox 96 04/16/23 07:09 O2 Del Method Room Air 04/16/23 07:09 BMI result Body Mass Index 22.2 Const: General: no acute distress and confusion Orientation/consciousness: confusion HEENT: Head: Yes normocephalic Mouth: other (Dry mucous membrane) Neck: Neck: Yes supple Resp: Auscultation: diminished lung sounds Cardio: Jugular venous distension: no JVD Rate: regular rate GI: Palpation (GI): Soft to palpation Skin: General skin exam: no rashes or lesions noted Neuro: Other: Confused General: confusion Objective Data Labs 04/16/23 04:39 04/16/23 04:39 Labs: Laboratory Results - last 24 hr 04/15/23 04/15/23 04/15/23 13:55 16:08 20:37 WBC RBC Hgb Hct MCV MCH MCHC RDW Plt Count MPV Immature Gran % (Auto) Neut % (Auto) Lymph % (Auto) [place] % (Auto) Eos % (Auto) Baso % (Auto) Lymph # (Auto) [place] # (Auto) Eos # (Auto) Baso # (Auto) Abs Immat Gran (auto) Absolute Neuts (auto) Absolute Nucleated RBC Nucleated RBC % (auto) Smear Tech's Comments Sodium Potassium Chloride Carbon Dioxide Anion Gap BUN Creatinine Estim Creat Clear Calc Estimated GFR POC Glucose 153 H 140 H 138 H Fasting Glucose Calcium Total Bilirubin AST ALT Alkaline Phosphatase Total Protein Albumin 04/16/23 04/16/23 04:39 07:10 WBC 3.0 L RBC 3.52 L Hgb 10.3 L Hct 31.9 L MCV 90.6 MCH 29.3 MCHC 32.3 RDW 16.9 H Plt Count 198 MPV 9.2 L Immature Gran % (Auto) 1.3 H Neut % (Auto) 44.5 L Lymph % (Auto) 29.3 [place] % (Auto) 20.9 H Eos % (Auto) 3.0 Baso % (Auto) 1.0 Lymph # (Auto) 0.9 L [place] # (Auto) 0.6 Eos # (Auto) 0.1 Baso # (Auto) 0.0 Abs Immat Gran (auto) 0.04 H Absolute Neuts (auto) 1.3 L Absolute Nucleated RBC 0.000 Nucleated RBC % (auto) 0.0 Smear Tech's Comments VERIFIED Sodium 148 H Potassium 3.7 Chloride 120 H Carbon Dioxide 22 Anion Gap 10 L BUN 37 H Creatinine 2.30 H Estim Creat Clear Calc 24.5 Estimated GFR 27 POC Glucose 110 Fasting Glucose 121 H Calcium 14.4 H* Total Bilirubin 0.7 AST 13 ALT 5 Alkaline Phosphatase 53 Total Protein 6.6 Albumin 2.8 L Microbiology Microbiology Results: Microbiology 04/12/23 15:59 Blood - Venous Blood Culture - Preliminary Gram positive larissa 04/12/23 15:04 Urine Catheterized - Barry Catheter Urine Culture - Preliminary Pseudomonas aeruginosa 04/12/23 14:20 Blood - Venous Blood Culture - Preliminary No growth after 48 hours. Procedures Date of Service Date of Service: 04/16/23 Assessment & Plan Assessment and plan (1) Hypercalcemia: Status: Acute (2) Acute kidney injury: Status: Inactive (3) CKD (chronic kidney disease) stage 4, GFR 15-29 ml/min: Status: Acute (4) Hypernatremia: Status: Resolved Plan Increased normal saline to 125 mL an hour Already given Zometa 4 mg. IgG, IgM, IgA within normal limits Ordered Lasix 40 mg IV daily along with normal saline given hypercalcemia Has metabolic encephalopathy due to multiple electrolyte abnormalities Will need more free water. Continue rest of current care. Labs a.m. Progress Note: Quality Stroke Does the patient have a stroke diagnosis?: No
[2023-04-16] MEDS: Furosemide 40 MG/4 ML VIAL IVPUSH (09:47)
[2023-04-16 11:24] LABS: Glucose, Whole Blood 184 mg/dL (60-115)
--- NOTE | 2023-04-16 11:53 | HO.PM.IMPN ---
Subjective Subjective Date of Service: 04/16/23 Interval History: Essentially no changes overnight. No acute issues Review of Systems Unable to obtain Physical Exam Vital Signs: Vital Signs: Last Vital Signs Temp 97.2 F 04/16/23 07:09 Pulse 74 04/16/23 07:09 Resp 20 04/16/23 07:09 BP 161/77 H 04/16/23 07:09 Pulse Ox 96 04/16/23 07:09 O2 Del Method Room Air 04/16/23 07:09 BMI result Body Mass Index 22.2 Const: Other: Awake alert no acute issues overnight Resp: Other: Clear to auscultation bilaterally no rales rhonchi or wheezes Cardio: Other: No S4; positive S1-S2; no S3 murmurs rubs or gallops GI: Other: Soft nontender nondistended normoactive bowel sounds Extrem: Other: No edema bilaterally Objective Data Active Medications Dextrose (Dextrose 50 % 25 Gm/50 Ml Syringe) 25 gm IVPUSH Q15M PRN; Protocol PRN Reason: per Hypoglycemia Standing Ord. Furosemide (Furosemide 40 Mg/4 Ml Vial) 40 mg IVPUSH DAILY [facility]; Protocol Last Admin: 04/16/23 09:47 Dose: 40 mg Documented By: GOSIA Glucose (Glucose Gel 15 Gm Gel..Gram.) 15 gm PO Q15M PRN; Protocol PRN Reason: per Hypoglycemia Standing Ord. Heparin Sodium (Porcine) (Heparin Sodium,Porcine 5,000 Unit/Ml Vial) 5,000 unit SUBCUT Q12H [facility] Last Admin: 04/16/23 09:06 Dose: 5,000 unit Documented By: GOSIA Sodium Chloride (Ns) 1,000 mls @ 125 mls/hr IVCONT .Q8H [facility] Last Infusion: 04/16/23 09:47 Dose: 125 mls/hr Documented By: GOSIA Insulin Human Lispro (Insulin Lispro 100 Unit/Ml 3 Ml Vial) 0 unit SUBCUT QIDACHS [facility]; Protocol Last Admin: 04/16/23 07:43 Dose: Not Given Documented By: GOSIA Non-Admin Reason: No Insulin Coverage Levofloxacin (Levofloxacin 250 Mg Tablet) 250 mg PO Q24H [facility] Last Admin: 04/15/23 13:46 Dose: 250 mg Documented By: GOSIA Ondansetron HCl (Ondansetron Hcl 4 Mg/2 Ml Vial) 4 mg IVPUSH Q8H PRN PRN Reason: Nausea and Vomiting Sodium Chloride (0.9 % Sodium Chloride Flush 3 Ml Syringe) [facility] Last Admin: 04/16/23 07:36 Dose: 3 ml Documented By: GOSIA Labs 04/16/23 04:39 04/16/23 04:39 Labs: Laboratory Results - last 24 hr 04/15/23 04/15/23 04/15/23 13:55 16:08 20:37 MCV MCH MCHC RDW Plt Count MPV Immature Gran % (Auto) Neut % (Auto) Lymph % (Auto) [place] % (Auto) Eos % (Auto) Baso % (Auto) Lymph # (Auto) [place] # (Auto) Eos # (Auto) Baso # (Auto) Abs Immat Gran (auto) Absolute Neuts (auto) Absolute Nucleated RBC Nucleated RBC % (auto) Smear Tech's Comments Anion Gap Estim Creat Clear Calc Estimated GFR POC Glucose 153 H 140 H 138 H Fasting Glucose Calcium Total Bilirubin AST ALT Alkaline Phosphatase Total Protein Albumin 04/16/23 04/16/23 04/16/23 04:39 07:10 11:13 MCV 90.6 MCH 29.3 MCHC 32.3 RDW 16.9 H Plt Count 198 MPV 9.2 L Immature Gran % (Auto) 1.3 H Neut % (Auto) 44.5 L Lymph % (Auto) 29.3 [place] % (Auto) 20.9 H Eos % (Auto) 3.0 Baso % (Auto) 1.0 Lymph # (Auto) 0.9 L [place] # (Auto) 0.6 Eos # (Auto) 0.1 Baso # (Auto) 0.0 Abs Immat Gran (auto) 0.04 H Absolute Neuts (auto) 1.3 L Absolute Nucleated RBC 0.000 Nucleated RBC % (auto) 0.0 Smear Tech's Comments VERIFIED Anion Gap 10 L Estim Creat Clear Calc 24.5 Estimated GFR 27 POC Glucose 110 184 H Fasting Glucose 121 H Calcium 14.4 H* Total Bilirubin 0.7 AST 13 ALT 5 Alkaline Phosphatase 53 Total Protein 6.6 Albumin 2.8 L Microbiology Microbiology Results: Microbiology 04/12/23 15:04 Urine Culture - Preliminary Urine Catheterized - Barry Catheter Pseudomonas aeruginosa Gram positive cocci 04/12/23 15:59 Blood Culture - Preliminary Blood - Venous Gram positive larissa Assessment and Plan (1) Acute metabolic encephalopathy: Status: Acute (2) Hypercalcemia: Status: Acute Plan Pt is an 82-year-old male with a PMH significant for?unspecified dementia, cardiomyopathy, CAD s/p NSTEMI, HTN, HLD, hx of PE, recurrent UTIs with Pseudomonas/VRE, and 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 intake of solids and liquids, cough, vomiting, and confusion with visual hallucinations. Pt will be admitted to the hospital for acute metabolic encephalopathy in the setting of UTI and pneumonia. 1.Acute metabolic encephalopathy secondary to UTI/Community-acquired pneumonia -DC ceftriaxone/azithromycin(3)... Urine culture Pseudomonas sensitive to Levaquin...renally dosed -blood cultures negative times 24 hours 2. Dysphasia -seen by speech recommend NDDM1 diet 3.Hypercalcemia -corrected calcium continues to rise.. -Zometa 4 mg IV x1; IV Lasix daily -increase normal saline to 125 an hours -renal consult appreciated -follow renals/divalents 4.Chronic kidney disease -as per 3 DNR/DNI Heparin Patient requires ongoing hospitalization to treat UTI/community-acquired pneumonia with IV antibiotics as well as IV volume replacement to correct hypercalcemia. Will also require specialist consultation with regards to speech and swallowing Quality Stroke Does the patient have a stroke diagnosis?: No VTE Prior VTE?: No VTE Risk Level:: Medical - moderate - high VTE Device Contraindication: Treatment Not Indicated VTE Drug Contraindication: N/A - Med Ordered
[2023-04-16] MEDS: levoFLOXacin 250 MG TABLET PO (12:24)
[2023-04-16] MEDS: Insulin Lispro 100 UNIT/ML 3 ML VIAL SUBCUT ×2 (12:24→20:25)
--- NOTE | 2023-04-16 13:25 | MHC.SL.DTX ---
Dysphagia Diet modifications: Last documented Solid diet consistencies: Pureed (NDD1) Last documented Liquid consistency: Thin Last documented Medication Administration: Changes made to current diet?: No Liquid Consistency and Strategies: Liquid Intake Recommendation: [place] Thick Compensatory Strategies for Safe Swallow: Small Sips No Straws Compensatory Strategies for Safe Swallow(b): Sitting Upright (90 deg) No Straw Liquids from Cup Liquids from Spoon Small Bites and Sips Alternate Liquids/Solids Rate of Ingestion Change Oral Check Avoid Specific Foods Solid Food Consistency: Dietary Recommendations: Pureed (NDD1) Additional Modifications to Solids: Oral Medication Intake: Crushed with Puree Strategies and Precautions to be Taken for Safe Swallow: Sitting Upright (90 deg) No Straw Liquids from Cup Liquids from Spoon Small Bites and Sips Alternate Liquids/Solids Rate of Ingestion Change Oral Check Avoid Specific Foods Supervision While Eating and/Drinking: Total Assistance (1:1) Foods to Avoid: [place] sticky or congealed purees Swallowing Recommended Treatments: Compens. Strategy Educat. Level of Impact on: Daily activities: Interpersonal interactions: Education: Employment: Community: Prognosis for Improvement: Good Recommendation for Speech: Inpatient Speech Therapy Comment: CLINICAL TRIAL ASSISTANT will continue to follow to monitor pt's tolerance of modified diet and to re-assess for potential upgrade when appropriate. Frequency/Duration: M-F PRN Date Range for Service Req: Timeline to reassess: Additional Comments: Treatment: Pt awake and alert, but confused. Picking at his blanket and perseverating on his IV lines. Assessment: Baker Chef Clinican/Clinical Fellow: No Supervisory Statement: I have reviewed and agree with the student/clinical fellow's documentation: N/A Speech Language Pathologist: Chuck Howell M.A., [facility]-CLINICAL TRIAL ASSISTANT
[2023-04-16] MEDS: 0.9 % Sodium Chloride 1,000 ML 125 ML IVCONT ×2 (15:13→22:22)
[2023-04-16 15:24] VITALS: BP 116/59; PULSE 82; RESP 20; TEMP 36.4; O2SAT 100
[2023-04-16 16:32] LABS: Glucose, Whole Blood 133 mg/dL (60-115)
[2023-04-16 19:35] VITALS: BP 118/59; PULSE 65; RESP 16; TEMP 36.4; O2SAT 98
[2023-04-16 20:20] LABS: Glucose, Whole Blood 171 mg/dL (60-115)
[2023-04-17 03:15] VITALS: BP 117/58; PULSE 66; RESP 16; TEMP 36.6; O2SAT 95
[2023-04-17] MEDS: 0.9 % Sodium Chloride 1,000 ML 125 ML IVCONT ×2 (05:43→13:03)
[2023-04-17 06:49] VITALS: BP 148/67; PULSE 68; RESP 18; TEMP 36.6; O2SAT 97
[2023-04-17 06:56] LABS: Basophils Percent Auto 0.6 % (0-2); Eosinophils Absolute Auto 0.1 X10*3/uL (0.0-0.4); Eosinophils Percent Auto 3.4 % (0-4); Hematocrit 30.7 % (42.0-52.0); Hemoglobin 9.8 g/dl (14.0-18.0); Imm Gran Abs Auto 0.02 X10*3/uL (0.00-0.03); Imm Gran Pct Auto 0.6 % (0.0-0.4); Lymphocytes Absolute Auto 0.9 X10*3/uL (1.2-4.9); Lymphocytes Percent Auto 26.9 % (20-40); MANUAL DIFF FLAG SCAN; Mean Corpuscular HGB Conc 31.9 g/dl (31.0-36.0); Mean Corpuscular Hemoglobin 28.7 pg (27.0-33.0); Mean Corpuscular Volume 89.8 fL (80.0-98.0); Mean Platelet Volume 9.4 fL (9.4-12.4); Monocytes Absolute Auto 0.7 X10*3/uL (0.1-1.2); Monocytes Percent Auto 21.3 % (2-11); Neutrophils Absolute Auto 1.5 x10*3/uL (2.0-8.3); Neutrophils Percent Auto 47.2 % (45-73); Platelet Count 163 X10*3/uL (160-400); Red Blood Count 3.42 X10*6/uL (4.60-5.80); Red Cell Distribution Width 16.9 % (11.0-16.0); SCAN SMEAR FLAG 1; White Blood Count 3.2 X10*3/uL (4.8-10.8)
[2023-04-17 07:00] LABS: Alanine Aminotransferase 7 U/L (0-40); Albumin Level 2.6 g/dL (3.5-5.0); Alkaline Phosphatase 46 U/L (39-117); Anion Gap 11 (12-20); Aspartate Amino Transferase 25 U/L (5-37); Bilirubin Total 0.7 mg/dL (0.0-1.0); Blood Urea Nitrogen 31 mg/dL (9-16); Calcium 13.8 mg/dL (8.4-10.2); Carbon Dioxide 23 mmol/L (22-29); Chloride 119 mmol/L (96-108); Creatinine Clr Calc Pharmacy 26.2; Estimated Glomerular Filt Rate 30; Glucose Fasting 103 mg/dL (60-99); Potassium 3.5 mmol/L (3.3-5.1); Sodium 149 mmol/L (135-145); Total Protein 6.4 g/dL (6.5-8.0)
[2023-04-17 07:03] LABS: Glucose, Whole Blood 100 mg/dL (60-115)
[2023-04-17] MEDS: 0.9 % Sodium Chloride Flush 3 ML SYRINGE IVFLUSH (07:44)
[2023-04-17] MEDS: Furosemide 40 MG/4 ML VIAL IVPUSH (07:44)
[2023-04-17 07:50] LABS: SLIDE REVIEW VERIFIED
[2023-04-17] MEDS: Heparin Sodium,Porcine 5,000 UNIT/ML VIAL 5000 UNIT SUBCUT (09:03)
[2023-04-17 11:11] LABS: Glucose, Whole Blood 131 mg/dL (60-115)
[2023-04-17] MEDS: levoFLOXacin 250 MG TABLET PO (12:10)
--- NOTE | 2023-04-17 12:14 | MHC.CM.PN ---
EMR reviewed. Per MD rounds patient is not medically cleared due to high calcium. MD will speak with HCP. No change to dc plan. CM will continue to follow.
--- NOTE | 2023-04-17 14:32 | P.PNNP_ITS ---
Subjective Subjective Date of Service: 04/17/23 Interval history: Essentially no changes overnight. No acute issues s/p Zometa Physical Exam 2 Vital Signs: Vital Signs: Last Vital Signs Temp 98 F 04/17/23 06:49 Pulse 68 04/17/23 06:49 Resp 18 04/17/23 06:49 BP 148/67 H 04/17/23 06:49 Pulse Ox 97 04/17/23 06:49 O2 Del Method Room Air 04/17/23 06:49 BMI result Body Mass Index 22.2 Const: General: no acute distress and confusion Orientation/consciousness: confusion HEENT: Head: Yes normocephalic Mouth: other (Dry mucous membrane) Neck: Neck: Yes supple Resp: Auscultation: diminished lung sounds Cardio: Jugular venous distension: no JVD Rate: regular rate GI: Palpation (GI): Soft to palpation Skin: General skin exam: no rashes or lesions noted Neuro: Other: Confused General: confusion Objective Data Labs 04/17/23 05:49 04/17/23 05:49 Labs: Laboratory Results - last 24 hr 04/16/23 04/16/23 04/17/23 16:20 20:17 05:49 WBC 3.2 L RBC 3.42 L Hgb 9.8 L Hct 30.7 L MCV 89.8 MCH 28.7 MCHC 31.9 RDW 16.9 H Plt Count 163 MPV 9.4 Immature Gran % (Auto) 0.6 H Neut % (Auto) 47.2 Lymph % (Auto) 26.9 [place] % (Auto) 21.3 H Eos % (Auto) 3.4 Baso % (Auto) 0.6 Lymph # (Auto) 0.9 L [place] # (Auto) 0.7 Eos # (Auto) 0.1 Baso # (Auto) 0.0 Abs Immat Gran (auto) 0.02 Absolute Neuts (auto) 1.5 L Absolute Nucleated RBC 0.000 Nucleated RBC % (auto) 0.0 Smear Tech's Comments VERIFIED Sodium 149 H Potassium 3.5 Chloride 119 H Carbon Dioxide 23 Anion Gap 11 L BUN 31 H Creatinine 2.15 H Estim Creat Clear Calc 26.2 Estimated GFR 30 POC Glucose 133 H 171 H Fasting Glucose 103 H Calcium 13.8 H* Total Bilirubin 0.7 AST 25 ALT 7 Alkaline Phosphatase 46 Total Protein 6.4 L Albumin 2.6 L 04/17/23 04/17/23 07:00 11:08 WBC RBC Hgb Hct MCV MCH MCHC RDW Plt Count MPV Immature Gran % (Auto) Neut % (Auto) Lymph % (Auto) [place] % (Auto) Eos % (Auto) Baso % (Auto) Lymph # (Auto) [place] # (Auto) Eos # (Auto) Baso # (Auto) Abs Immat Gran (auto) Absolute Neuts (auto) Absolute Nucleated RBC Nucleated RBC % (auto) Smear Tech's Comments Sodium Potassium Chloride Carbon Dioxide Anion Gap BUN Creatinine Estim Creat Clear Calc Estimated GFR POC Glucose 100 131 H Fasting Glucose Calcium Total Bilirubin AST ALT Alkaline Phosphatase Total Protein Albumin Microbiology Microbiology Results: Microbiology 04/12/23 15:04 Urine Catheterized - Barry Catheter Urine Culture - Preliminary Pseudomonas aeruginosa Gram positive cocci 04/12/23 15:59 Blood - Venous Blood Culture - Final Gram positive larissa 04/12/23 14:20 Blood - Venous Blood Culture - Preliminary No growth after 48 hours. Procedures Date of Service Date of Service: 04/17/23 Assessment & Plan Assessment and plan (1) Acute metabolic encephalopathy: Status: Acute (2) Hypercalcemia: Status: Acute (3) Hypernatremia: Status: Resolved Plan Elderly man with ALETHEA And hypernatremia due to free water deficit PTH was suppresed at 7 pg/ml and NO MCGP in 2021 Suggest IV hydration Change to 1/2 NS to correct hypernatremia Check SPEP Follow calcium Watch CA post Zometa Concur with current work up Time Spent With Patient Time: Total time managing care of this patient today ____ minutes. Progress Note: Quality Stroke Does the patient have a stroke diagnosis?: No
--- NOTE | 2023-04-17 14:38 | MHC.SLORD ---
Speech Language Pathology Order Status: Per MD, patient MANAGER OF SUSTAINABILITY. TABLE INSPECTOR services no longer needed.
--- NOTE | 2023-04-17 15:24 | P.PNIM_ITS ---
Subjective Subjective Date of Service: 04/17/23 Interval History: Continues to decline. Essentially no oral intake Review of Systems Unable to obtain Physical Exam 2 Vital Signs: Vital Signs: Last Vital Signs Temp 98 F 04/17/23 06:49 Pulse 68 04/17/23 06:49 Resp 18 04/17/23 06:49 BP 148/67 H 04/17/23 06:49 Pulse Ox 97 04/17/23 06:49 O2 Del Method Room Air 04/17/23 06:49 BMI result Body Mass Index 22.2 Const: Other: Awake alert no acute issues overnight Resp: Other: Clear to auscultation bilaterally no rales rhonchi or wheezes Cardio: Other: No S4; positive S1-S2; no S3 murmurs rubs or gallops GI: Other: Soft nontender nondistended normoactive bowel sounds Extrem: Other: No edema bilaterally Objective Data Active Medications Acetaminophen (Acetaminophen 325 Mg Tablet) 650 mg PO Q4H PRN PRN Reason: Fever >/= 100, Pain, mild 1-3 Diazepam (Diazepam 10 Mg/2 Ml Cartridge) 10 mg IVPUSH Q4H PRN PRN Reason: anxiety/restlessness Furosemide (Furosemide 40 Mg/4 Ml Vial) 40 mg IVPUSH DAILY [facility]; Protocol Last Admin: 04/17/23 07:44 Dose: 40 mg Documented By: CORY Morphine Sulfate (Morphine Sulfate/Ns) 100 mg in 100 mls @ 0 mls/hr IVCONT .Q0M [facility]; Protocol Ondansetron HCl (Ondansetron Hcl 4 Mg/2 Ml Vial) 4 mg IVPUSH Q8H PRN PRN Reason: Nausea and Vomiting Labs 04/17/23 05:49 04/17/23 05:49 Labs: Laboratory Results - last 24 hr 04/16/23 04/16/23 04/17/23 16:20 20:17 05:49 MCV 89.8 MCH 28.7 MCHC 31.9 RDW 16.9 H Plt Count 163 MPV 9.4 Immature Gran % (Auto) 0.6 H Neut % (Auto) 47.2 Lymph % (Auto) 26.9 [place] % (Auto) 21.3 H Eos % (Auto) 3.4 Baso % (Auto) 0.6 Lymph # (Auto) 0.9 L [place] # (Auto) 0.7 Eos # (Auto) 0.1 Baso # (Auto) 0.0 Abs Immat Gran (auto) 0.02 Absolute Neuts (auto) 1.5 L Absolute Nucleated RBC 0.000 Nucleated RBC % (auto) 0.0 Smear Tech's Comments VERIFIED Anion Gap 11 L Estim Creat Clear Calc 26.2 Estimated GFR 30 POC Glucose 133 H 171 H Fasting Glucose 103 H Calcium 13.8 H* Total Bilirubin 0.7 AST 25 ALT 7 Alkaline Phosphatase 46 Total Protein 6.4 L Albumin 2.6 L 04/17/23 04/17/23 07:00 11:08 MCV MCH MCHC RDW Plt Count MPV Immature Gran % (Auto) Neut % (Auto) Lymph % (Auto) [place] % (Auto) Eos % (Auto) Baso % (Auto) Lymph # (Auto) [place] # (Auto) Eos # (Auto) Baso # (Auto) Abs Immat Gran (auto) Absolute Neuts (auto) Absolute Nucleated RBC Nucleated RBC % (auto) Smear Tech's Comments Anion Gap Estim Creat Clear Calc Estimated GFR POC Glucose 100 131 H Fasting Glucose Calcium Total Bilirubin AST ALT Alkaline Phosphatase Total Protein Albumin Microbiology Microbiology Results: Microbiology 04/12/23 15:04 Urine Culture - Preliminary Urine Catheterized - Barry Catheter Pseudomonas aeruginosa Gram positive cocci 04/12/23 15:59 Blood Culture - Final Blood - Venous Gram positive larissa Assessment and Plan (1) Acute metabolic encephalopathy: Status: Acute Plan Pt is an 82-year-old male with a PMH significant for?unspecified dementia, cardiomyopathy, CAD s/p NSTEMI, HTN, HLD, hx of PE, recurrent UTIs with Pseudomonas/VRE, and 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 intake of solids and liquids, cough, vomiting, and confusion with visual hallucinations. Pt will be admitted to the hospital for acute metabolic encephalopathy in the setting of UTI and pneumonia. Discussed with HCP/long- term significant other.. Given poor prognosis and progressive decline she opts for comfort measures. 1.Acute metabolic encephalopathy secondary to UTI/Community-acquired pneumonia Will initiate morphine drip with IV Valium for anxiety and restlessness. Will DC all lab work and therapies. 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
[2023-04-17 15:36] VITALS: RESP 18
[2023-04-17] MEDS: Morphine Sulfate/NS 100 MG/100 ML PLAST..BAG IVCONT (16:43)
[2023-04-18 03:58] VITALS: RESP 16
[2023-04-18 07:16] VITALS: RESP 12
--- NOTE | 2023-04-18 13:56 | HO.PM.IMPN ---
Subjective Subjective Date of Service: 04/18/23 Interval History: seen and examined this morning pt DIRECTOR OF CARDIAC CATH LAB, appears comfortable does not wake to verbal stimuli Physical Exam Vital Signs: Vital Signs: Last Vital Signs Temp 98 F 04/17/23 06:49 Pulse 68 04/17/23 06:49 Resp 12 04/18/23 07:16 BP 148/67 H 04/17/23 06:49 Pulse Ox 97 04/17/23 06:49 O2 Del Method Room Air 04/17/23 06:49 BMI result Body Mass Index 22.2 Const: Other: appears comfortable Resp: Effort & Inspection: no respiratory distress and no use of accessory muscles Objective Data Active Medications Acetaminophen (Acetaminophen 325 Mg Tablet) 650 mg PO Q4H PRN PRN Reason: Fever >/= 100, Pain, mild 1-3 Diazepam (Diazepam 10 Mg/2 Ml Cartridge) 10 mg IVPUSH Q4H PRN PRN Reason: anxiety/restlessness Furosemide (Furosemide 40 Mg/4 Ml Vial) 40 mg IVPUSH DAILY [facility]; Protocol Last Admin: 04/18/23 11:32 Dose: Not Given Documented By: ROD Non-Admin Reason: Physician Approved Morphine Sulfate (Morphine Sulfate/Ns) 100 mg in 100 mls @ 0 mls/hr IVCONT .Q0M [facility]; Protocol Last Admin: 04/17/23 16:43 Dose: 2 mg/hr, 2 mls/hr Documented By: CORY Ondansetron HCl (Ondansetron Hcl 4 Mg/2 Ml Vial) 4 mg IVPUSH Q8H PRN PRN Reason: Nausea and Vomiting Labs 04/17/23 05:49 04/17/23 05:49 Microbiology Microbiology Results: Microbiology 04/12/23 15:04 Urine Culture - Final Urine Catheterized - Barry Catheter Pseudomonas aeruginosa Enterococcus faecalis 04/12/23 14:20 Blood Culture - Final Blood - Venous No growth after 5 days. 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 intake of solids and liquids, cough, vomiting, and confusion with visual hallucinations. Pt will be admitted to the hospital for acute metabolic encephalopathy in the setting of UTI and pneumonia. Discussed with HCP/long-term significant other.. Given poor prognosis and progressive decline she opts for comfort measures. Acute metabolic encephalopathy secondary to UTI/Community-acquired pneumonia changed to DIRECTOR OF CARDIAC CATH LAB status 04/17 and started on morphine drip with IV Valium for anxiety and restlessness. Will DC all lab work and therapies. complicated UTI related to suprapubic catheter. urine culture growing multiple organisms including psedumonas and enterococcus pneumonia bacteremia dysphagia Hypercalcemia Hypernatremia CKD anemia/leukopenia chronic: dementia unspecified, CAD, HTN, HLD, nonmalignant penile mass Patient requires ongoing hospitalization for comfort care Quality Stroke Does the patient have a stroke diagnosis?: No VTE Prior VTE?: No VTE Risk Level:: Medical - moderate - high VTE Device Contraindication: Treatment Not Indicated VTE Drug Contraindication: N/A - Med Ordered
--- NOTE | 2023-04-18 14:25 | MHC.CM.PN ---
PT HAS BEEN CHANGED TO AERODYNAMICS TEACHER, THERE IS NO PLAN TO MOVE HIM AT THIS TIME, HIS INSURANCE DOES NOT HAVE A RETIREMENT BENEFIT FOR SNF PLACEMENT AND HIS S/O, JENNIFER, IS UNABLE TO PROVIDE HIS CARE AT HOME.
[2023-04-18 15:19] VITALS: BP 90/50; PULSE 74; RESP 15; TEMP 37.3; O2SAT 77
[2023-04-18 20:00] VITALS: RESP 22
[2023-04-19 03:48] VITALS: RESP 18
[2023-04-19 07:35] VITALS: RESP 18
--- NOTE | 2023-04-19 10:21 | MHC.CM.PN ---
CALL FROM [employer] SECURITY OFFICER WHO OFFERED A BED. LIAISON MADE AWARE OF LINE WALKER STATUS. NO BED CAN BE OFFERED AT FACILITY.
[2023-04-19] MEDS: Morphine Sulfate/NS 100 MG/100 ML PLAST..BAG IVCONT (12:03)
--- NOTE | 2023-04-19 15:42 | HO.PM.IMPN ---
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 Physical Exam Vital Signs: Vital Signs: Last Vital Signs Temp 99.1 F 04/18/23 15:19 Pulse 74 04/18/23 15:19 Resp 18 04/19/23 07:35 BP 90/50 L 04/18/23 15:19 Pulse Ox 77 L 04/18/23 15:19 O2 Del Method Room Air 04/18/23 15:19 BMI result Body Mass Index 22.2 Const: Other: comfortable, breathing easy Objective Data Active Medications Acetaminophen (Acetaminophen 325 Mg Tablet) 650 mg PO Q4H PRN PRN Reason: Fever >/= 100, Pain, mild 1-3 Diazepam (Diazepam 10 Mg/2 Ml Cartridge) 10 mg IVPUSH Q4H PRN PRN Reason: anxiety/restlessness Furosemide (Furosemide 40 Mg/4 Ml Vial) 40 mg IVPUSH DAILY [facility]; Protocol Last Admin: 04/19/23 07:50 Dose: Not Given Documented By: ROD Non-Admin Reason: Physician Approved Morphine Sulfate (Morphine Sulfate/Ns) 100 mg in 100 mls @ 0 mls/hr IVCONT .Q0M [facility]; Protocol Last Admin: 04/19/23 12:03 Dose: 2 mg/hr, 2 mls/hr Documented By: ROD Ondansetron HCl (Ondansetron Hcl 4 Mg/2 Ml Vial) 4 mg IVPUSH Q8H PRN PRN Reason: Nausea and Vomiting Labs 04/17/23 05:49 04/17/23 05:49 Assessment and Plan (1) Acute metabolic encephalopathy: Status: Acute (2) Pneumonia: Status: Acute (3) Urinary tract infection: Status: Acute Plan Pt is an 82-year-old male with a PMH significant for?unspecified dementia, cardiomyopathy, CAD s/p NSTEMI, HTN, HLD, hx of PE, recurrent UTIs with Pseudomonas/VRE, and 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 intake of solids and liquids, cough, vomiting, and confusion with visual hallucinations. Pt will be admitted to the hospital for acute metabolic encephalopathy in the setting of UTI and pneumonia. Discussed with HCP/long-term significant other.. Given poor prognosis and progressive decline she opts for comfort measures. 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 Will DC all lab work and therapies. complicated UTI related to suprapubic catheter. urine culture growing multiple organisms including psedumonas and enterococcus pneumonia bacteremia dysphagia Hypercalcemia Hypernatremia CKD anemia/leukopenia chronic: dementia unspecified, CAD, HTN, HLD, nonmalignant penile mass Patient requires ongoing hospitalization for comfort care Quality Stroke Does the patient have a stroke diagnosis?: No VTE Prior VTE?: No VTE Risk Level:: Medical - moderate - high VTE Device Contraindication: Treatment Not Indicated VTE Drug Contraindication: N/A - Med Ordered
[2023-04-19 19:14] VITALS: RESP 16
[2023-04-19 19:25] VITALS: RESP 9
[2023-04-19 22:10] VITALS: RESP 14
[2023-04-20] VITALS (7 sets, daily range): RESP 14–24
[2023-04-20] MEDS: Scopolamine 1.5 MG PATCH.TD.3 EAR-BEHIND (04:44)
--- NOTE | 2023-04-20 10:50 | HO.PM.IMPN ---
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 Physical Exam Vital Signs: Vital Signs: Last Vital Signs Temp 99.1 F 04/18/23 15:19 Pulse 74 04/18/23 15:19 Resp 14 04/20/23 07:52 BP 90/50 L 04/18/23 15:19 Pulse Ox 77 L 04/18/23 15:19 O2 Del Method Room Air 04/18/23 15:19 BMI result Body Mass Index 22.2 comfortable in bed no acute distress noted Objective Data Active Medications Acetaminophen (Acetaminophen 325 Mg Tablet) 650 mg PO Q4H PRN PRN Reason: Fever >/= 100, Pain, mild 1-3 Diazepam (Diazepam 10 Mg/2 Ml Cartridge) 10 mg IVPUSH Q4H PRN PRN Reason: anxiety/restlessness Morphine Sulfate (Morphine Sulfate/Ns) 100 mg in 100 mls @ 0 mls/hr IVCONT .Q0M [facility]; Protocol Last Admin: 04/19/23 12:03 Dose: 2 mg/hr, 2 mls/hr Documented By: ROD Ondansetron HCl (Ondansetron Hcl 4 Mg/2 Ml Vial) 4 mg IVPUSH Q8H PRN PRN Reason: Nausea and Vomiting Scopolamine (Scopolamine 1.5 Mg Patch.Td.3) 1.5 mg EAR-BEHIND Q72H [facility] Last Admin: 04/20/23 04:44 Dose: 1.5 mg Documented By: SANJIV Rea 04/17/23 05:49 04/17/23 05:49 Assessment and Plan (1) Acute metabolic encephalopathy: Status: Acute (2) Pneumonia: Status: Acute (3) Urinary tract infection: Status: Acute Plan Pt is an 82-year-old male with a PMH significant for?unspecified dementia, cardiomyopathy, CAD s/p NSTEMI, HTN, HLD, hx of PE, recurrent UTIs with Pseudomonas/VRE, and 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 intake of solids and liquids, cough, vomiting, and confusion with visual hallucinations. Pt will be admitted to the hospital for acute metabolic encephalopathy in the setting of UTI and pneumonia. Discussed with HCP/long-term significant other.. Given poor prognosis and progressive decline she opts for comfort measures. 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 DC all lab work and therapies. complicated UTI related to suprapubic catheter. urine culture growing multiple organisms including psedumonas and enterococcus pneumonia bacteremia dysphagia Hypercalcemia Hypernatremia CKD anemia/leukopenia chronic: dementia unspecified, CAD, HTN, HLD, nonmalignant penile mass Attending Dr. Garcia Patient requires ongoing hospitalization for comfort care Quality Stroke Does the patient have a stroke diagnosis?: No VTE Prior VTE?: No VTE Risk Level:: Medical - moderate - high VTE Device Contraindication: Treatment Not Indicated VTE Drug Contraindication: N/A - Med Ordered
[2023-04-20] MEDS: Morphine Sulfate/NS 100 MG/100 ML PLAST..BAG IVCONT (12:09)
[2023-04-21 00:14] VITALS: RESP 24
[2023-04-21 03:31] VITALS: RESP 20
[2023-04-21 08:00] VITALS: RESP 20
--- NOTE | 2023-04-21 09:18 | HO.PM.IMPN ---
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 Physical Exam Vital Signs: Vital Signs: Last Vital Signs Temp 99.1 F 04/18/23 15:19 Pulse 74 04/18/23 15:19 Resp 20 04/21/23 08:00 BP 90/50 L 04/18/23 15:19 Pulse Ox 77 L 04/18/23 15:19 O2 Del Method Room Air 04/18/23 15:19 BMI result Body Mass Index 22.2 sleeping, apneic Objective Data Active Medications Acetaminophen (Acetaminophen 325 Mg Tablet) 650 mg PO Q4H PRN PRN Reason: Fever >/= 100, Pain, mild 1-3 Diazepam (Diazepam 10 Mg/2 Ml Cartridge) 10 mg IVPUSH Q4H PRN PRN Reason: anxiety/restlessness Morphine Sulfate (Morphine Sulfate/Ns) 100 mg in 100 mls @ 0 mls/hr IVCONT .Q0M [facility]; Protocol Last Titration: 04/21/23 00:14 Dose: 4 mg/hr, 4 mls/hr Documented By: SANJIV Ondansetron HCl (Ondansetron Hcl 4 Mg/2 Ml Vial) 4 mg IVPUSH Q8H PRN PRN Reason: Nausea and Vomiting Scopolamine (Scopolamine 1.5 Mg Patch.Td.3) 1.5 mg EAR-BEHIND Q72H [facility] Last Admin: 04/20/23 04:44 Dose: 1.5 mg Documented By: SANJIV Labs 04/17/23 05:49 04/17/23 05:49 Assessment and Plan (1) Acute metabolic encephalopathy: Status: Acute (2) Pneumonia: Status: Acute (3) Urinary tract infection: Status: Acute Plan Pt is an 82-year-old male with a PMH significant for?unspecified dementia, cardiomyopathy, CAD s/p NSTEMI, HTN, HLD, hx of PE, recurrent UTIs with Pseudomonas/VRE, and 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 intake of solids and liquids, cough, vomiting, and confusion with visual hallucinations. Pt will be admitted to the hospital for acute metabolic encephalopathy in the setting of UTI and pneumonia. Discussed with HCP/long-term significant other.. Given poor prognosis and progressive decline she opts for comfort measures. 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 DC all lab work and therapies. complicated UTI related to suprapubic catheter. urine culture growing multiple organisms including psedumonas and enterococcus pneumonia bacteremia dysphagia Hypercalcemia Hypernatremia CKD anemia/leukopenia chronic: dementia unspecified, CAD, HTN, HLD, nonmalignant penile mass Attending Dr. Garcia Patient requires ongoing hospitalization for comfort care Quality Stroke Does the patient have a stroke diagnosis?: No VTE Prior VTE?: No VTE Risk Level:: Medical - moderate - high VTE Device Contraindication: Treatment Not Indicated VTE Drug Contraindication: N/A - Med Ordered
[2023-04-21 11:58] VITALS: RESP 22
[2023-04-21] MEDS: Morphine Sulfate/NS 100 MG/100 ML PLAST..BAG IVCONT (11:58)
--- NOTE | 2023-04-21 14:32 | PM.DDS ---
Discharge Sum: Prov Provider Primary care physician: Chester Garcia MD Consults: 04/14/23 08:11 Consult to Nephrology Stat Consulting Provider: [facility] Reason for consultation: hypercalcemia Has provider been notified: Yes 04/14/23 11:46 Consult to Wound Care Routine Reason for consultation: Right buttock PI Has provider been notified: Yes Discharge Sum: Diag PCOD Cause of : Respiratory arrest Contributing Factors (1) Acute metabolic encephalopathy: (2) Pneumonia: (3) Urinary tract infection: Discharge Sum: Summary Date and Time Date of admission: 04/12/23 21:15 Summary Details: Pt is an 82-year-old male with a PMH significant for?unspecified dementia, cardiomyopathy, CAD s/p NSTEMI, HTN, HLD, hx of PE, recurrent UTIs with Pseudomonas/VRE, and 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 intake of solids and liquids, cough, vomiting, and confusion with visual hallucinations. ?Patient is currently alert and oriented to self only and incapable of providing meaningful were accurate HPI, which is instead obtained from chart and provider review. Patient lives at home with his elderly and was recently admitted to the hospital on 03/22/2023-03/23/2023 and treated for weakness and confusion due to metabolic encephalopathy in the setting of UTI with sepsis and ALETHEA. Urine culture grew Proteus mirabilis sensitive to ceftriaxone. PT evaluation prior to discharge recommended either short-term rehab or 24 hour care. Patient's preferred to take him home, so he was discharged with VNA support. Patient's caregiver states that since discharge patient has been increasingly weak and mainly staying in bed, when prior he would be able to walk with a walker or use a wheelchair to move himself around. Caregiver also notes he has had very little food or fluid since discharge, especially in the last 3-4 days. Patient developed a productive sounding cough 2 days ago, and vomited both yesterday and today. Also reports that increased confusion with visual hallucinations, such as thinking the window is a television or seeing people and things that are not there. Pt has a history of confusion with UTIs/infections, but hallucinations are new. In the ED pt was was afebrile, but tachycardic up to 112, with soft BP as low as 90/53, satting at 97% on RA. Labs were significant for beta hydroxybutyrate of 2.78, albumin 2.8. No leukocytosis. Stable H&H of 11.2/34.4. BUN and creatinine elevated at 47 and 2.63, at baseline. UA positive for UTI with large amount of leukocyte esterase and >50 wbc's, bacteria 4+. Tested negative for influenza type a and B, COVID. Chest x-ray showed patchy opacity at right lung base likely infiltrate/atelectasis with small right pleural effusion or thickening. EKG demonstrated sinus tachycardia with LBBB with no evidence of ST elevations or depressions, no significant changes from previous EKG. Pt was treated with IVF and cefepime. Pt will be admitted to the hospital for acute metabolic encephalopathy in the setting of UTI and pneumonia. 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 DC all lab work and therapies. complicated UTI related to suprapubic catheter. urine culture growing multiple organisms including psedumonas and enterococcus pneumonia bacteremia dysphagia Hypercalcemia Hypernatremia CKD anemia/leukopenia chronic: dementia unspecified, CAD, HTN, HLD, nonmalignant penile mass Additional Data Attending physician: Janice Tejada NP
== END 2023-04-21 13:40 | disposition expired | DRG 698 ==
LOC: HO.ED 18:11 → HO.EDOVER 21:28 → HO.S3 23:06
PROVIDERS: Hospitalist; Student in an Organized Health Care Education/Training Program; Admitting Provider Student in an Organized Health Care Education/Training Program; Emergency Provider Emergency Medicine Emergency Medical Services; PCP Internal Medicine; Visit Provider Nurse Practitioner Acute Care
DX: T83.518A Infection and inflammatory reaction due to other urinary catheter, initial encounter (principal); G93.41 Metabolic encephalopathy; J18.9 Pneumonia, unspecified organism; F03.918 Unspecified dementia, unspecified severity, with other behavioral disturbance; N17.9 Acute kidney failure, unspecified; E87.0 Hyperosmolality and hypernatremia; I12.9 Hypertensive chronic kidney disease with stage 1 through stage 4 chronic kidney disease, or unspecified chronic kidney disease; B96.5 Pseudomonas (aeruginosa) (mallei) (pseudomallei) as the cause of diseases classified elsewhere; Z86.711 Personal history of pulmonary embolism; Z51.5 Encounter for palliative care; B95.2 Enterococcus as the cause of diseases classified elsewhere; D63.1 Anemia in chronic kidney disease; R13.10 Dysphagia, unspecified; L89.152 Pressure ulcer of sacral region, stage 2; N18.30 Chronic kidney disease, stage 3 unspecified; E83.52 Hypercalcemia; Z66 Do not resuscitate; Y73.1 Therapeutic (nonsurgical) and rehabilitative gastroenterology and urology devices associated with adverse incidents; I25.10 Atherosclerotic heart disease of native coronary artery without angina pectoris; E86.0 Dehydration; Z20.822 Contact with and (suspected) exposure to COVID-19; Z87.440 Personal history of urinary (tract) infections; Z79.82 Long term (current) use of aspirin; Z79.899 Other long term (current) drug therapy
CPT/HCPCS: 0241U; 36415; 71045; 80048; 80053; 81001; 82010; 82803; 82947; 83605; 83690; 83970; 84484; 85025; 85027; 85730; 87040; 87086; 87088; 87186; 87205; 87502; 87635; 92526; 92610; 93005; 97161; 99285; J0456; J0692; J0696; J1644; J1940; J2270; J2359; J3489; J7120

== ENCOUNTER → 2023-04-12 13:44 | Outpatient (BNV) | payer MEDICARE, SELFPAY | PROVIDERS: Emergency Provider Emergency Medicine Emergency Medical Services; PCP Internal Medicine; Visit Provider Internal Medicine Cardiovascular Disease | DX: R00.0 Tachycardia, unspecified (principal); I44.7 Left bundle-branch block, unspecified | CPT/HCPCS: 93010 ==

== ENCOUNTER → 2023-04-12 21:15 | Outpatient (BNV) | payer MEDICARE, MEDICAID, SELFPAY | PROVIDERS: Admitting Provider Student in an Organized Health Care Education/Training Program; Emergency Provider Emergency Medicine Emergency Medical Services; PCP Internal Medicine; Visit Provider Student in an Organized Health Care Education/Training Program | DX: G93.41 Metabolic encephalopathy (principal); J18.9 Pneumonia, unspecified organism; T83.510A Infection and inflammatory reaction due to cystostomy catheter, initial encounter; N39.0 Urinary tract infection, site not specified | CPT/HCPCS: 99223; 99232; 99233; 99238 ==

== ENCOUNTER → 2023-04-12 21:15 | Outpatient (BNV) | payer MEDICARE, SELFPAY | PROVIDERS: Admitting Provider Student in an Organized Health Care Education/Training Program; Emergency Provider Emergency Medicine Emergency Medical Services; PCP Internal Medicine; Visit Provider Internal Medicine Nephrology | DX: G93.41 Metabolic encephalopathy (principal); E87.0 Hyperosmolality and hypernatremia; N17.9 Acute kidney failure, unspecified; N18.4 Chronic kidney disease, stage 4 (severe); E83.52 Hypercalcemia | CPT/HCPCS: 99222; 99232 ==